=== PATIENT | female | born 1945 | race Caucasian/White ===

== ENCOUNTER 2020-06-14 13:56 | Outpatient (REF) | payer MEDICARE, SELFPAY | END 2020-06-14 13:57 | disposition home or self-care (01) | LOC: HO.HMGCLDS 13:56 | PROVIDERS: Visit Provider Internal Medicine | DX: Z20.828 Contact with and (suspected) exposure to other viral communicable diseases (principal) | CPT/HCPCS: 87635 ==

== ENCOUNTER → 2020-06-18 11:07 | Outpatient (BNV) | payer MEDICARE, SELFPAY | PROVIDERS: Visit Provider Internal Medicine Medical Oncology | DX: C90.00 Multiple myeloma not having achieved remission (principal) | CPT/HCPCS: 99212; 99213; 99214; 99443 ==

== ENCOUNTER 2020-08-02 08:37 | Outpatient (REF) | payer MEDICARE, SELFPAY ==
[2020-08-02 11:37] LABS: Hematocrit 40.4 % (37-47); Mean Corpuscular HGB Conc 32.2 g/dl (31.0-35.0); Mean Corpuscular Hemoglobin 28.3 pg (27.0-33.0); Mean Platelet Volume 9.9 fL (9.4-12.3); Platelet Count 113 X10*3/uL (160-400); Red Blood Count 4.59 X10*6/uL (4.20-5.50); Red Cell Distribution Width 13.1 % (11.0-16.0); White Blood Count 6.6 X10*3/uL (4.8-10.8)
[2020-08-02 12:21] LABS: Erythrocyte Sedimentation Rate 3 MM/HR (0-20)
[2020-08-02 12:33] LABS: Alanine Aminotransferase 38 U/L (0-31); Alkaline Phosphatase 48 U/L (39-117); Anion Gap 11 (12-20); Aspartate Amino Transferase 19 U/L (5-31); Bilirubin Direct 0.4 mg/dL (0.0-0.5); Bilirubin Total 1.1 mg/dL (0.0-1.0); Blood Urea Nitrogen 17 mg/dL (9-16); Calcium 8.7 mg/dL (8.4-10.2); Carbon Dioxide 29 mmol/L (22-29); Chloride 104 mmol/L (96-108); Cholesterol 140 mg/dL; Estimated Glomerular Filt Rate > 60; Glucose Random 92 mg/dL (60-115); HDL Cholesterol 56 mg/dL; LDL Cholesterol Calculated 49 mg/dl; Potassium 4.1 mmol/l (3.3-5.1); Sodium 140 mmol/L (135-145); Triglycerides 179 mg/dL
== END 2020-08-02 08:38 | disposition home or self-care (01) ==
LOC: HO.HMGCLDS 08:37
PROVIDERS: Visit Provider Internal Medicine Medical Oncology
DX: I10 Essential (primary) hypertension (principal); E78.5 Hyperlipidemia, unspecified
CPT/HCPCS: 36415; 80053; 80061; 80076; 82248; 83520; 85025; 85027; 85652

== ENCOUNTER → 2020-09-16 10:21 | Outpatient (BNVA) | payer MEDICARE, SELFPAY | PROVIDERS: Visit Provider Internal Medicine | DX: J45.909 Unspecified asthma, uncomplicated (principal); C90.01 Multiple myeloma in remission; R06.00 Dyspnea, unspecified | CPT/HCPCS: 99212 ==

== ENCOUNTER → 2020-09-20 11:09 | Outpatient (BNVA) | payer MEDICARE, SELFPAY | PROVIDERS: Visit Provider Internal Medicine Cardiovascular Disease | DX: C90.00 Multiple myeloma not having achieved remission (principal); R06.00 Dyspnea, unspecified; I10 Essential (primary) hypertension | CPT/HCPCS: 99212 ==

== ENCOUNTER → 2020-09-27 10:07 | Outpatient (BNVA) | payer MEDICARE, SELFPAY | PROVIDERS: Visit Provider Internal Medicine Gastroenterology | DX: Z76.89 Persons encountering health services in other specified circumstances (principal) | CPT/HCPCS: Q3014 ==

== ENCOUNTER → 2021-01-24 14:11 | Outpatient (BNVA) | payer MEDICARE, SELFPAY | PROVIDERS: PCP Internal Medicine; Referring Provider Internal Medicine; Visit Provider Internal Medicine Gastroenterology | DX: Z13.89 Encounter for screening for other disorder (principal) | CPT/HCPCS: 99212 ==

== ENCOUNTER 2021-01-26 10:43 | Outpatient (REF) | payer MEDICARE, SELFPAY ==
[2021-01-29 07:01] LABS: Fecal Fat Qualitative Normal (Normal)
[2021-02-06 01:52] LABS: Pancreatic Elastase-1 487 mcg/g
== END 2021-01-26 10:44 | disposition home or self-care (01) ==
LOC: HO.LNP 10:43
PROVIDERS: Visit Provider Internal Medicine Gastroenterology
DX: K52.9 Noninfective gastroenteritis and colitis, unspecified (principal)
CPT/HCPCS: 82656; 82705

== ENCOUNTER → 2021-03-03 12:50 | Outpatient (BNVA) | payer MEDICARE, SELFPAY | PROVIDERS: PCP Internal Medicine; Referring Provider Internal Medicine; Visit Provider Internal Medicine Gastroenterology | DX: K52.9 Noninfective gastroenteritis and colitis, unspecified (principal); K21.9 Gastro-esophageal reflux disease without esophagitis; C90.00 Multiple myeloma not having achieved remission | CPT/HCPCS: 99212 ==

== ENCOUNTER → 2021-03-16 10:44 | Outpatient (BNVA) | payer MEDICARE, SELFPAY | PROVIDERS: PCP Internal Medicine; Visit Provider Internal Medicine | DX: J45.20 Mild intermittent asthma, uncomplicated (principal); J44.9 Chronic obstructive pulmonary disease, unspecified; F41.9 Anxiety disorder, unspecified | CPT/HCPCS: 99212 ==

== ENCOUNTER → 2021-03-21 14:52 | Outpatient (BNVA) | payer MEDICARE, SELFPAY | PROVIDERS: PCP Internal Medicine; Referring Provider Internal Medicine; Visit Provider Internal Medicine Cardiovascular Disease | DX: C90.00 Multiple myeloma not having achieved remission (principal); R06.00 Dyspnea, unspecified; I10 Essential (primary) hypertension | CPT/HCPCS: 93005; 99212 ==

== ENCOUNTER 2021-05-11 11:05 | Outpatient (REF) | payer MEDICARE, SELFPAY ==
--- NOTE | ~2021-05-11 | XR_ITS ---
EXAMINATION: XR CHEST CLINICAL INFORMATION: COPD. COMPARISON: Chest 12/31/2019 TECHNIQUE: 2 views of the chest were obtained. FINDINGS: The lungs are well-expanded and clear of acute process. The heart size and pulmonary vascularity is normal. There is mild levoscoliosis of dorsal spine. There are 2 screws traversing the left proximal humeral head. XR/XR chest 2V IMPRESSION: Unremarkable chest exam.
== END 2021-05-11 11:06 | disposition home or self-care (01) ==
LOC: CF 11:05
PROVIDERS: PCP Internal Medicine; Visit Provider Internal Medicine
DX: J44.9 Chronic obstructive pulmonary disease, unspecified (principal); J45.20 Mild intermittent asthma, uncomplicated; Z79.899 Other long term (current) drug therapy; Z87.891 Personal history of nicotine dependence
CPT/HCPCS: 71046; 99212

== ENCOUNTER 2021-06-24 08:25 | Outpatient (REF) | payer MEDICARE, SELFPAY ==
[2021-06-24 11:38] LABS: Hematocrit 41.5 % (37-47); Mean Corpuscular HGB Conc 31.3 g/dl (31.0-35.0); Mean Corpuscular Hemoglobin 26.6 pg (27.0-33.0); Mean Corpuscular Volume 84.9 fL (80-98); Mean Platelet Volume 9.1 fL (9.4-12.3); Platelet Count 205 X10*3/uL (160-400); Red Blood Count 4.89 X10*6/uL (4.20-5.50); Red Cell Distribution Width 14.7 % (11.0-16.0); White Blood Count 8.2 X10*3/uL (4.8-10.8)
[2021-06-24 11:57] LABS: Alanine Aminotransferase 32 U/L (0-31); Albumin Level 4.4 g/dL (3.5-5.0); Alkaline Phosphatase 68 U/L (39-117); Anion Gap 13 (12-20); Aspartate Amino Transferase 25 U/L (5-31); Bilirubin Total 0.8 mg/dL (0.0-1.0); Blood Urea Nitrogen 15 mg/dL (9-16); Calcium 9.9 mg/dL (8.4-10.2); Carbon Dioxide 28 mmol/L (22-29); Chloride 107 mmol/L (96-108); Cholesterol 144 mg/dL; Estimated Glomerular Filt Rate > 60; Glucose Random 98 mg/dL (60-115); HDL Cholesterol 51 mg/dL; LDL Cholesterol Calculated 62 mg/dl; Potassium 5.1 mmol/L (3.3-5.1); Sodium 143 mmol/L (135-145); Total Protein 6.6 g/dL (6.5-8.0); Triglycerides 157 mg/dL
[2021-06-24 12:01] LABS: Estimated Average Glucose 105 mg/dL; Hemoglobin A1c % 5.3 %
[2021-06-24 12:04] LABS: Free T4 (Free Thyroxine) 0.87 ng/dL (0.71-1.85); Thyroid Stimulating Hormone 2.54 uIU/mL (0.32-4.0); Vitamin D 25-OH Total 55.7 ng/mL (>30)
[2021-06-24 12:09] LABS: Band Neutrophils Percent 5 % (3-5); Eosinophils Absolute Manual 0.2 X10*3/UL (0.0-0.8); Eosinophils Percent Manual 3 % (0-4); Lymphocytes Absolute Manual 1.1 X10*3/uL (0.6-4.8); Lymphocytes Percent Manual 14 % (20-40); Monocytes Absolute Manual 0.8 X10*3/uL (0.0-1.2); Monocytes Percent Manual 10 % (2-11); Neutrophils Percent Manual 68 % (45-73)
[2021-06-24 12:11] LABS: Platelet Estimate NORMAL (NORMAL); Platelet Morphology Comment NORMAL; RBC Morphology NORMAL
[2021-06-24 12:34] LABS: Folate 18.3 ng/mL (> or = 4.0); Vitamin B12 553 pg/mL (200-900)
== END 2021-06-24 08:26 | disposition home or self-care (01) ==
LOC: HO.HMGCLDS 08:25
PROVIDERS: PCP Internal Medicine; Visit Provider Internal Medicine
DX: E78.00 Pure hypercholesterolemia, unspecified (principal)
CPT/HCPCS: 36415; 80053; 80061; 82306; 82607; 82746; 83036; 84439; 84443; 85007; 85027

== ENCOUNTER → 2021-06-30 14:36 | Outpatient (BNVA) | payer MEDICARE, SELFPAY | PROVIDERS: PCP Internal Medicine; Visit Provider Internal Medicine | DX: J44.9 Chronic obstructive pulmonary disease, unspecified (principal); J45.909 Unspecified asthma, uncomplicated; I10 Essential (primary) hypertension; G57.02 Lesion of sciatic nerve, left lower limb; M94.0 Chondrocostal junction syndrome [Tietze]; C90.00 Multiple myeloma not having achieved remission; F41.9 Anxiety disorder, unspecified; Z87.891 Personal history of nicotine dependence; Z88.6 Allergy status to analgesic agent; Z88.1 Allergy status to other antibiotic agents; Z88.8 Allergy status to other drugs, medicaments and biological substances; Z79.899 Other long term (current) drug therapy | CPT/HCPCS: 99212 ==

== ENCOUNTER → 2021-07-07 10:44 | Outpatient (BNVA) | payer MEDICARE, SELFPAY | PROVIDERS: PCP Internal Medicine; Referring Provider Internal Medicine; Visit Provider Internal Medicine Gastroenterology | DX: K21.9 Gastro-esophageal reflux disease without esophagitis (principal); K52.9 Noninfective gastroenteritis and colitis, unspecified | CPT/HCPCS: 99212 ==

== ENCOUNTER → 2021-09-21 10:58 | Outpatient (BNVA) | payer MEDICARE, SELFPAY | PROVIDERS: PCP Internal Medicine; Visit Provider Internal Medicine | DX: J44.9 Chronic obstructive pulmonary disease, unspecified (principal); J45.20 Mild intermittent asthma, uncomplicated; R06.00 Dyspnea, unspecified; F41.9 Anxiety disorder, unspecified | CPT/HCPCS: 99212 ==

== ENCOUNTER → 2021-09-22 15:10 | Outpatient (BNVA) | payer MEDICARE, SELFPAY | PROVIDERS: PCP Internal Medicine; Referring Provider Internal Medicine; Visit Provider Internal Medicine Cardiovascular Disease | DX: I10 Essential (primary) hypertension (principal); R06.00 Dyspnea, unspecified; C90.00 Multiple myeloma not having achieved remission | CPT/HCPCS: 99212 ==

== ENCOUNTER → 2021-10-06 11:55 | Outpatient (BNVA) | payer MEDICARE, SELFPAY | PROVIDERS: PCP Internal Medicine; Referring Provider Internal Medicine; Visit Provider Internal Medicine Gastroenterology | DX: K52.9 Noninfective gastroenteritis and colitis, unspecified (principal); K21.9 Gastro-esophageal reflux disease without esophagitis; R13.14 Dysphagia, pharyngoesophageal phase | CPT/HCPCS: 99212 ==

== ENCOUNTER 2021-11-07 08:44 | Outpatient (REF) | payer MEDICARE, SELFPAY ==
--- NOTE | ~2021-11-07 | FL_ITS ---
EXAMINATION: FL BARIUM SWALLOW CLINICAL INFORMATION: Dysphagia with solids and liquids. COMPARISON: None TECHNIQUE: Barium swallow examination is performed using fluoroscopic evaluation in addition to multiple fluoroscopic spot views. The patient is imaged both upright and prone and using both thick and thin sulfate along with effervescent granules. Fluoroscopy time: 0.8 minutes DAP: 3.993 Gycm2 Images: 19 FINDINGS: Pharyngeal phase is normal in frontal and lateral views. No aspiration demonstrated. No mass. Esophageal caliber is normal. There is moderate dysmotility. No fixed stricture or extrinsic mass lesion demonstrated. No mucosal abnormality. No hiatal hernia. No gastroesophageal reflux observed. A barium tablet passed through the esophagus into the stomach. FL/FL barium swallow IMPRESSION: Moderate esophageal dysmotility. Otherwise normal barium swallow.
== END 2021-11-07 08:45 | disposition home or self-care (01) ==
LOC: HO.XRAY 08:44
PROVIDERS: PCP Internal Medicine; Visit Provider Internal Medicine Gastroenterology
DX: R13.14 Dysphagia, pharyngoesophageal phase (principal)
CPT/HCPCS: 74220

== ENCOUNTER 2021-11-14 10:51 | Emergency (ER) | payer MEDICARE, SELFPAY ==
--- NOTE | ~2021-11-14 | CT_ITS ---
EXAMINATION: CT ABDOMEN AND PELVIS WITHOUT CONTRAST CLINICAL INFORMATION: Back pain. History of multiple myeloma. COMPARISON: Previous CT of the abdomen and pelvis [address] scans most recent chest CTA April 2020 TECHNIQUE: Multidetector volumetric imaging was performed from the superior aspect of the liver through the pubic symphysis. Sagittal and coronal reformatted images were obtained on the technologist's workstation. This CT examination was performed using dose optimization techniques as appropriate, variously including the following: *Automated exposure control *Adjustment of mA and/or kV according to patient size (this includes techniques or standardized protocols for targeted exams where dose is matched to indication/reason for exam; i.e. extremities or head) *Use of iterative reconstruction technique DLP: 570 mGy-cm FINDINGS: LUNG BASES: There is a 3 mm left lower lobe nodule axial image 9 series 3. This is unchanged from previous CTA April 2020 There may be an anterior diaphragmatic hernia containing fat. LIVER, GALLBLADDER, AND BILIARY TREE: The liver is normal in size, shape, and attenuation. No focal hepatic lesion or biliary ductal dilatation is present. There is dependent high attenuation in the gallbladder questionable for small gallstones. PANCREAS: Unremarkable. SPLEEN: Unremarkable. ADRENAL GLANDS: Unremarkable. KIDNEYS AND URETERS: There is a 4 cm cyst in the upper pole of the left kidney. No imaging follow-up needed. The kidneys are otherwise unremarkable. BLADDER: Unremarkable. GASTROINTESTINAL TRACT: There is diverticulosis of the colon. The small and large bowel are otherwise unremarkable. The appendix is unremarkable. ABDOMINAL WALL: No significant hernia is appreciated. LYMPH NODES: Normal. VASCULAR: Unremarkable. PELVIC VISCERA: Unremarkable. OSSEOUS STRUCTURES: There are degenerative changes of the spine and hip joints. No fracture or bone lesion is seen. There is mild 3 mm anterior subluxation of L4 with respect L5 probably secondary to facet arthritis. CT/CT abdomen pelvis wo con IMPRESSION: Left renal cyst. Diverticulosis of the colon. Degenerative changes of the spine and hip joints. No fracture or bone lesion is seen. Question small gallstones. Stable 3 mm left lower lobe nodule. Fleischner guidelines were followed.
[2021-11-14 12:01] VITALS: BP 145/70; PULSE 73; RESP 16; TEMP 36.5; O2SAT 98; BMI 28.3
[2021-11-14] MEDS: Ketorolac Tromethamine 30 MG/ML VIAL IM (12:58)
[2021-11-14] MEDS: Cyclobenzaprine HCl 10 MG TABLET PO (12:58)
[2021-11-14 13:10] LABS: Appearance Urine CLEAR; Color Urine YELLOW; Glucose Urine UA NEG (NEG); Leukocyte Esterase Urine NEG (NEG); Nitrite Urine NEG (NEG); PH 5.5 (5.0-8.0); Specific Gravity - Urine <= 1.005 (1.005-1.025); UACC Culture Trigger NO; Urine Blood TRACE (NEG); Urine Ketones NEG (NEG); Urine Protein NEG (NEG-TRACE)
[2021-11-14 13:24] LABS: RBC Urine 0-2 /HPF (0); Squamous Epithelial Cell Urine 2+ /LPF; WBC Urine 0-2 /HPF (0-4)
--- NOTE | 2021-11-14 13:36 | ECG_ITS ---
Test Reason : BACK PAIN Blood Pressure : / mmHG Vent. Rate : 060 BPM Atrial Rate : 060 BPM P-R Int : 148 ms QRS Dur : 076 ms QT Int : 396 ms P-R-T Axes : 042 -04 078 degrees QTc Int : 396 ms Normal sinus rhythm Nonspecific ST and T wave abnormality Borderline ECG When compared with ECG of 18-SEP-2019 16:01, No significant change was found Referred By: Bereket Huff Electronically Signed By:EUGENE HINSON
[2021-11-14 13:49] LABS: MANUAL DIFF FLAG NO
[2021-11-14 13:50] LABS: Basophils Percent Auto 0.1 % (0-2); Eosinophils Percent Auto 0.1 % (0-4); Hematocrit 41.2 % (37.0-47.0); Hemoglobin 13.4 g/dl (12.0-16.0); Imm Gran Pct Auto 0.9 % (0.0-0.4); Lymphocytes Absolute Auto 1.1 X10*3/uL (1.2-4.9); Lymphocytes Percent Auto 10.3 % (20-40); Mean Corpuscular HGB Conc 32.5 g/dl (31.0-35.0); Mean Corpuscular Hemoglobin 30.6 pg (27.0-33.0); Mean Corpuscular Volume 94.1 fL (80.0-98.0); Mean Platelet Volume 8.2 fL (9.4-12.3); Monocytes Percent Auto 8.7 % (2-11); Neutrophils Absolute Auto 8.8 x10*3/uL (2.0-8.3); Neutrophils Percent Auto 79.9 % (45-73); Platelet Count 214 X10*3/uL (160-400); Red Blood Count 4.38 X10*6/uL (4.20-5.50); Red Cell Distribution Width 12.9 % (11.0-16.0)
[2021-11-14 13:56] LABS: Prothrombin Time 11.5 SEC (9.9-13.0)
[2021-11-14 13:59] LABS: Partial Thromboplastin Time 36.4 SEC (24.1-38.0)
[2021-11-14 14:05] LABS: D Dimer High Sensitivity < 150 NG/ML
[2021-11-14 14:09] LABS: Troponin-I High Sensitivity < 3.5 ng/L (<3.5-17.0)
[2021-11-14 14:17] LABS: Alanine Aminotransferase 28 U/L (0-31); Albumin Level 4.5 g/dL (3.5-5.0); Alkaline Phosphatase 65 U/L (39-117); Anion Gap 14 (12-20); Aspartate Amino Transferase 29 U/L (5-31); Bilirubin Total 0.7 mg/dL (0.0-1.0); Blood Urea Nitrogen 18 mg/dL (9-16); Calcium 9.9 mg/dL (8.4-10.2); Carbon Dioxide 27 mmol/L (22-29); Chloride 103 mmol/L (96-108); Creatinine Clr Calc Pharmacy 45.1; Estimated Glomerular Filt Rate 50; Glucose Random 92 mg/dL (60-115); Potassium 5.8 mmol/L (3.3-5.1); Sodium 138 mmol/L (135-145)
--- NOTE | 2021-11-14 14:18 | ED_ITS ---
HPI - Back Pain/Injury General Chief Complaint: Back Pain/Injury Stated Complaint: back pain Time Seen by Provider: 11/14/21 13:25 Source: patient Mode of arrival: ambulatory Limitations: no limitations History of Present Illness HPI Narrative: 76-year-old female with past medical history of multiple myeloma, COPD, and GERD brought to the ED for right-sided flank and lower back pain since yesterday after sneezing really hard. Patient denies any trauma. patient states back pain is worse on movement such as moving torso, bending down, and lifting. Patient was sent by oncologist for evaluation. Patient denies any pleurisy. Patient denies any leg swelling, calf pain, or coughing up blood. Related Data Home Medications Medication Instructions Recorded Confirmed acetaminophen 500 mg tablet 500 mg PO QID PRN 06/21/20 11/08/21 ascorbic acid (vitamin C) 1,000 mg 1,000 mg PO DAILY 06/21/20 11/08/21 tablet chondroitin sulfate A sodium 400 400 mg PO DAILY 06/21/20 11/08/21 mg capsule flaxseed oil 1,000 mg capsule 1,000 mg PO DAILY 06/21/20 11/08/21 lactobacillus combination no.4 3 3,000 mmu cells PO DAILY 06/21/20 11/08/21 billion cell capsule multivitamin 1 cap PO DAILY 06/21/20 11/08/21 elderberry fruit 0.7 gram-honey 3 7.5 ml PO DAILY PRN 12/03/20 11/08/21 gram/7.5 mL oral liquid tramadol 50 mg tablet 50 mg PO BID PRN tab 12/03/20 11/08/21 glucosamine HCl-sulfate mix 200 200 tab PO DAILY 12/30/20 11/08/21 mg-300 mg tablet mecobalamin (vitamin B12) 1,000 1,000 mcg PO DAILY 12/30/20 11/08/21 mcg chewable tablet (B12 Active) methylsulfonylmethane 500 mg 500 mg PO DAILY 12/30/20 11/08/21 capsule peg 400-propylene glycol (PF) 0.4 0.4 drp DAILY 12/30/20 11/08/21 %-0.3 % eye drops in a dropperette (Systane (PF)) desvenlafaxine succinate 25 mg 25 mg PO DAILY 03/03/21 11/08/21 tablet,extended release 24 hr (Pristiq) colestipol 1 gram tablet (Colestid) 1 g PO DAILY tab 09/21/21 11/08/21 cholecalciferol (vitamin D3) 50 50 mcg PO DAILY 09/22/21 11/08/21 mcg (2,000 unit) capsule simvastatin 10 mg tablet 40 mg PO BEDTIME 09/27/21 11/08/21 Previous Rx's Medication Instructions Recorded trazodone 50 mg tablet 50 mg PO BEDTIME #30 tab 10/14/20 meloxicam 15 mg tablet 15 mg PO DAILY #90 tab 03/22/21 pantoprazole 40 mg tablet,delayed 1 tab PO DAILY #90 tab 04/26/21 release (Protonix) losartan 100 mg tablet (Cozaar) 100 mg PO DAILY #90 tab 05/26/21 metoprolol succinate 50 mg 50 mg PO DAILY #90 tab 06/02/21 tablet,extended release 24 hr (Toprol XL) methylprednisolone 16 mg tablet 20 mg PO DAILY #30 tab 07/05/21 (Medrol) sulfamethoxazole 800 1 tab PO DAILY #90 tab 07/05/21 mg-trimethoprim 160 mg tablet (Bactrim DS) valacyclovir 500 mg tablet 500 mg PO DAILY #90 tab 07/05/21 (Valtrex) lorazepam 0.5 mg tablet 0.5 mg PO BID PRN #50 tab 07/17/21 sjwqfbemac-dmhvoimcgizhh-epsgljdd 1 cap PO Q8H PRN #30 cap 08/02/21 50 mg-300 mg-40 mg capsule (Fioricet) albuterol sulfate 90 mcg/actuation 2 puff INHALATION Q4-6H PRN 30 09/21/21 aerosol inhaler (Ventolin HFA) Days #8.5 g jrhnjb-miwzzewy-buatldr 1 cap PO TID 30 Days #90 cap 10/06/21 12,000-38,000-60,000 unit capsule,delayed rel (Creon) Symbicort 160 mcg-4.5 2 puff INHALATION BID #10.2 g NS 10/20/21 mcg/actuation HFA aerosol inhaler (budesonide-formoterol) amlodipine 5 mg tablet 5 mg PO DAILY #90 cap 11/02/21 cyclobenzaprine 10 mg tablet 10 mg PO TID PRN 4 Days #12 tab 11/14/21 lidocaine 4 % topical patch 1 patch TOPICAL DAILY PRN 10 Days 11/14/21 (Aspercreme (lidocaine)) #10 ea Allergies Allergy/AdvReac Type Severity Reaction Status Date / Time oxycodone [From OXYCONTIN] Allergy Mild PRURITUS, Verified 10/28/21 09:55 severe itching adhesive tape Allergy Unknown BLISTERS Verified 10/28/21 09:55 cephalexin [Keflex] Allergy Unknown hives Verified 10/28/21 09:55 doxycycline [DOXYCYCLINE] AdvReac Intermediate STOMACH Verified 10/28/21 09:55 PAINS Review of Systems Review of Systems: Right upper and lower back pain after sneezing hard since yesterday. Yes all other systems are reviewed and are negative PMFSH Past Medical History Medical History Asthma Bladder cancer Cataract COPD (chronic obstructive pulmonary disease) Costochondritis Dyspnea on exertion GERD (gastroesophageal reflux disease) Hypertension IBS (irritable bowel syndrome) Multiple myeloma Surgical History H/O cardiac catheterization H/O colonoscopy H/O eye surgery H/O rotator cuff surgery H/O wrist surgery History of arthroscopy of both knees History of esophagogastroduodenoscopy (EGD) History of eyelid surgery History of tonsillectomy Family History Family History Father Pancreatic cancer Diabetes Stroke Mother No problems noted. Sister Diabetes Son No problems noted. Social History Social History Household Members: Spouse Housing: Condominium Are you a primary professional healthcare representative to a significant other at home: No Do you presently have visiting nurse or other home services: No Alcohol intake: current Alcohol intake frequency: holidays/special occasions only Patient Tobacco Use Status: Former Tobacco user Tobacco use type: Cigarette e-Cigarette/Vaping Use: Never Used Second Hand Smoke Exposure: No Advance Directives: Yes Advance Directives on File: Yes Advance Directives Date on File: 11/11/20 service: No Current occupational status: retired Physical Exam Vital Signs: Vital Signs: Last Vital Signs Temp 97.6 F 11/14/21 14:55 Pulse 61 11/14/21 14:55 Resp 18 11/14/21 14:55 BP 118/54 L 11/14/21 14:55 Pulse Ox 99 11/14/21 14:55 BMI result Body Mass Index 28.3 Const: General: cooperative, healthy appearing, comfortable, no acute distress, well developed, alert, awake and Physically active Orientation/consciousness: oriented to person, oriented to place, oriented to time and patient oriented x3 HENMT: Head: Yes normal to inspection, Yes No palpable skull fracture present, Yes normocephalic, Yes atraumatic and No abrasion Eyes: General: appearance normal, both eyes and all related structures Neck: Neck: Yes normal visual inspection, Yes full ROM, Yes no lymphadenopathy, Yes no meningeal signs, Yes trachea midline, Yes supple, No anterior neck swelling and No tender Chest: Chest palpation & inspection: normal inspection of the chest and normal palpation of entire chest wall Resp: Effort & Inspection: normal respiratory effort and able to speak in complete sentences Auscultation: clear to auscultation bilaterally Cardio: Jugular venous distension: no JVD Heart sounds: S1 normal heart sound present and S2 normal heart sound present GI: Inspection: Yes normal to inspection and No abdominal wall ecchymosis Palpation (GI): Soft to palpation, not firm, nontender, no guarding and not rigid : General: No CVA tenderness and Yes no CVA tenderness Back/Spine/Pelvis: Back: no CVA tenderness, No CVA tenderness and back tenderness (right latismuss dorsi/erector spinae tenderness on palpation) Back/spine/pelvis image: 1. positive for tenderness on palpation. Negative crepitus. Negative ecchymosis. Pain on range of motion and movement of the torso and upper extremity. Negative erythema. negative rash 2. Positive for tenderness on palpation. Positive for pain on range of motion such as bending down, turning around torso, and straight leg test. Negative for any crepitus. negative for any ecchymosis or erythema. negative rash Skin: General skin exam: no rashes or lesions noted and elasticity normal Neuro: General: oriented to person, oriented to place, oriented to time, patient oriented x3, gait normal and no meningeal signs Extrem: Other: lower extremity negative for swelling, pitting edema, or calf tenderness General: Yes normal to inspection and Yes full ROM Psych: Appearance: grossly normal, well kempt and not disheveled Course Course Course Narrative: history physical exam some muscular pain/spasm but due to patient having history of cancer will send for CT scan to check spine osseous structures to rule out any fractures and will do a D-dimer to make sure there is no risk of PE due to patient having cancer.. Reevaluation(s) Reevaluation #1: EKG negative STEMI. troponin and D-dimer negative. Patient given Toradol and Flexeril. Working for abdomen CT scan results to check for any spine fracture Time: 14:32 Reevaluation #2: CT scan negative for any osseous fractures but whitten show it does show lumbar radiculopathy. Patient feels better after given Toradol and lidocaine patch. Patient rated on meloxicam and tramadol. CT scan also showed gallstones. UA negative for UTI. Time: 15:19 Reevaluation #3: patient potassium 5.4 8and with normal BUN creatinine. EKG negative for Peaked t-waves. Patient given Kayexalate. Patient informed to follow-up with primary care for repeat potassium. Patient informed of lab results and imaging results. Patient given copies of labs and images told to follow up primary care provider. Time: 15:35 MDM - Back Pain/Injury MDM Narrative Medical decision making narrative: muscle spasm. Lab Data Result diagrams: 11/14/21 13:44 11/14/21 13:44 Labs: Lab Results 11/14/21 11/14/21 11/14/21 Range/Units 13:02 13:44 13:44 WBC 11.0 H (4.8-10.8) X10*3/uL RBC 4.38 (4.20-5.50) X10*6/uL Hgb 13.4 (12.0-16.0) g/dl Hct 41.2 (37.0-47.0) % MCV 94.1 (80.0-98.0) fL MCH 30.6 (27.0-33.0) pg MCHC 32.5 (31.0-35.0) g/dl RDW 12.9 (11.0-16.0) % Plt Count 214 (160-400) X10*3/uL MPV 8.2 L (9.4-12.3) fL Immature Gran % (Auto) 0.9 H (0.0-0.4) % Neut % (Auto) 79.9 H (45-73) % Lymph % (Auto) 10.3 L (20-40) % Dickinson % (Auto) 8.7 (2-11) % Eos % (Auto) 0.1 (0-4) % Baso % (Auto) 0.1 (0-2) % Lymph # (Auto) 1.1 L (1.2-4.9) X10*3/uL [place] # (Auto) 1.0 (0.1-1.2) X10*3/uL Eos # (Auto) 0.0 (0.0-0.4) X10*3/uL Baso # (Auto) 0.0 (0.0-0.2) X10*3/uL Abs Immat Gran (auto) 0.10 H (0.00-0.03) X10*3/uL Absolute Neuts (auto) 8.8 H (2.0-8.3) x10*3/uL Absolute Nucleated RBC 0.000 (0.0-0.012) X10*3/uL Nucleated RBC % (auto) 0.0 (0.0-0.2) /100WBC PT 11.5 (9.9-13.0) SEC INR 1.0 (0.9-1.1) APTT 36.4 (24.1-38.0) SEC D-Dimer High Sensitivty < 150 NG/ML Sodium (135-145) mmol/L Potassium (3.3-5.1) mmol/L Chloride (96-108) mmol/L Carbon Dioxide (22-29) mmol/L Anion Gap (12-20) BUN (9-16) mg/dL Creatinine (0.5-1.4) mg/dL Estim Creat Clear Calc Estimated GFR Random Glucose (60-115) mg/dL Calcium (8.4-10.2) mg/dL Total Bilirubin (0.0-1.0) mg/dL AST (5-31) U/L ALT (0-31) U/L Alkaline Phosphatase (39-117) U/L Troponin I High Sens (<3.5-17.0) ng/L Total Protein (6.5-8.0) g/dL Albumin (3.5-5.0) g/dL Urine Color YELLOW Urine Appearance CLEAR Urine pH 5.5 (5.0-8.0) Ur Specific [place] <= 1.005 (1.005-1.025) Urine Protein NEG (NEG-TRACE) MG/DL Urine Glucose (UA) NEG (NEG) MG/DL Urine Ketones NEG (NEG) MG/DL Urine Blood TRACE (NEG) Urine Nitrite NEG (NEG) Ur Leukocyte Esterase NEG (NEG) Urine RBC 0-2 (0) /HPF Urine WBC 0-2 (0-4) /HPF Ur Squamous Epith Cells 2+ /LPF Urine Bacteria NONE /LPF 11/14/21 11/14/21 Range/Units 13:44 13:44 WBC (4.8-10.8) X10*3/uL RBC (4.20-5.50) X10*6/uL Hgb (12.0-16.0) g/dl Hct (37.0-47.0) % MCV (80.0-98.0) fL MCH (27.0-33.0) pg MCHC (31.0-35.0) g/dl RDW (11.0-16.0) % Plt Count (160-400) X10*3/uL MPV (9.4-12.3) fL Immature Gran % (Auto) (0.0-0.4) % Neut % (Auto) (45-73) % Lymph % (Auto) (20-40) % Dickinson % (Auto) (2-11) % Eos % (Auto) (0-4) % Baso % (Auto) (0-2) % Lymph # (Auto) (1.2-4.9) X10*3/uL Dickinson # (Auto) (0.1-1.2) X10*3/uL Eos # (Auto) (0.0-0.4) X10*3/uL Baso # (Auto) (0.0-0.2) X10*3/uL Abs Immat Gran (auto) (0.00-0.03) X10*3/uL Absolute Neuts (auto) (2.0-8.3) x10*3/uL Absolute Nucleated RBC (0.0-0.012) X10*3/uL Nucleated RBC % (auto) (0.0-0.2) /100WBC PT (9.9-13.0) SEC INR (0.9-1.1) APTT (24.1-38.0) SEC D-Dimer High Sensitivty NG/ML Sodium 138 (135-145) mmol/L Potassium 5.8 H (3.3-5.1) mmol/L Chloride 103 (96-108) mmol/L Carbon Dioxide 27 (22-29) mmol/L Anion Gap 14 (12-20) BUN 18 H (9-16) mg/dL Creatinine 1.07 (0.5-1.4) mg/dL Estim Creat Clear Calc 45.1 Estimated GFR 50 Random Glucose 92 (60-115) mg/dL Calcium 9.9 (8.4-10.2) mg/dL Total Bilirubin 0.7 (0.0-1.0) mg/dL AST 29 (5-31) U/L ALT 28 (0-31) U/L Alkaline Phosphatase 65 (39-117) U/L Troponin I High Sens < 3.5 (<3.5-17.0) ng/L Total Protein 7.0 (6.5-8.0) g/dL Albumin 4.5 (3.5-5.0) g/dL Urine Color Urine Appearance Urine pH (5.0-8.0) Ur Specific [place] (1.005-1.025) Urine Protein (NEG-TRACE) MG/DL Urine Glucose (UA) (NEG) MG/DL Urine Ketones (NEG) MG/DL Urine Blood (NEG) Urine Nitrite (NEG) Ur Leukocyte Esterase (NEG) Urine RBC (0) /HPF Urine WBC (0-4) /HPF Ur Squamous Epith Cells /LPF Urine Bacteria /LPF ECG Data Interpretation: Normal sinus rhythm. Normal EKG. Ventricular rate 60. Pr interval 148. QRS 76. QTC 396. Negative STEMI Discharge Plan Discharge Clinical Impression: Sprain of upper back, Sprain of low back Patient Disposition: Home, Self-Care Instructions: Sprain (ED), Hyperkalemia (ED), Back Pain (ED) Additional Instructions: continue taking meloxicam and tramadol as needed for pain. You will be discharged with lidocaine patch. Your EKG and labs came back negative for heart attack, UTI, and risk of blood clot. Negative for any spinal fractures On CT scan. 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 You're potassium came back slightly elevated. You were given Kayexalate for treatment. Please follow-up with primary care provider for repeat potassium blood draw. Return to ED for any worsening back pain, pleuritic chest pain, shortness of breath, coughing up blood, flank pain, fever, chills, dysuria, hematuria, chest pain, abdominal pain, urinary/bowel incontinence, or any other concerning symptoms. Prescriptions: New cyclobenzaprine 10 mg tablet 10 mg PO TID PRN (Reason: pain) 4 Days Qty: 12 0RF Rx Instructions: side effect is drowsiness. Do not take at work or while driving. Do not take at the same time with any benzodiazepine or narcotics. lidocaine [Aspercreme (lidocaine HCl)] 4 % adhesive patch,medicated 1 patch topical DAILY PRN (Reason: back pain) 10 Days Qty: 10 0RF No Action meloxicam 15 mg tablet 15 mg PO DAILY Qty: 90 3RF losartan [Cozaar] 100 mg tablet 100 mg PO DAILY Qty: 90 3RF metoprolol succinate [Toprol XL] 50 mg tablet extended release 24 hr 50 mg PO DAILY Qty: 90 3RF budesonide-formoterol [Symbicort] 160-4.5 mcg/actuation HFA aerosol inhaler 2 puff inhalation BID Qty: 10.2 2RF amlodipine 5 mg tablet 5 mg PO DAILY Qty: 90 3RF ascorbic acid (vitamin C) 1,000 mg Tablet 1,000 mg PO DAILY 0RF acetaminophen 500 mg Tablet 500 mg PO QID PRN (Reason: Pain) 0RF flaxseed oil 1,000 mg Capsule 1,000 mg PO DAILY 0RF chondroitin sulfate A sodium 400 mg Capsule 400 mg PO DAILY 0RF multivitamin Capsule 1 cap PO DAILY 0RF lactobacillus combination no.4 3 billion cell Capsule 3,000 mmu cells PO DAILY 0RF trazodone 50 mg Tablet 50 mg PO BEDTIME Qty: 30 2RF elderberry fruit-honey 0.7-3 gram/7.5 mL liquid 7.5 ml PO DAILY PRN (Reason: Fatigue) 0RF Glucosamine Complex 200-300 mg Tablet 200 tab PO DAILY 0RF methylsulfonylmethane 500 mg Capsule 500 mg PO DAILY 0RF B12 Active 1,000 mcg Tablet,Chewable 1,000 mcg PO DAILY 0RF Systane (PF) 0.4-0.3 % Dropperette 0.4 drp DAILY 0RF pantoprazole [Protonix] 40 mg tablet,delayed release (DR/EC) 1 tab PO DAILY Qty: 90 3RF valacyclovir [Valtrex] 500 mg Tablet 500 mg PO DAILY Qty: 90 3RF sulfamethoxazole-trimethoprim [Bactrim DS] 800-160 mg Tablet 1 tab PO DAILY Qty: 90 4RF methylprednisolone [Medrol] 16 mg Tablet 20 mg PO DAILY Qty: 30 4RF Rx Instructions: Take 20 mg days 2 in 3 of chemotherapy. lorazepam 0.5 mg Tablet 0.5 mg PO BID PRN (Reason: Anxiety) Qty: 50 2RF qrzwrfypts-wjrkilvpzyvbl-zlbo [Fioricet] 50-300-40 mg Capsule 1 cap PO Q8H PRN (Reason: Headache) Qty: 30 3RF simvastatin 10 mg Tablet 40 mg PO BEDTIME 0RF desvenlafaxine succinate [Pristiq] 25 mg tablet extended release 24 hr 25 mg PO DAILY 0RF tramadol 50 mg tablet 50 mg PO BID PRN (Reason: Pain) 0RF colestipol [Colestid] 1 gram tablet 1 g PO DAILY 0RF Rx Instructions: Dr. Dupont Diarrhea albuterol sulfate [Ventolin HFA] 90 mcg/actuation HFA aerosol inhaler 2 puff inhalation Q4-6H PRN (Reason: shortness of breath or wheezing) 30 Days Qty: 8.5 5RF Creon 12,000-38,000 -60,000 unit capsule,delayed release(DR/EC) 1 cap PO TID 30 Days Qty: 90 3RF Rx Instructions: administer with meals and/or snacks cholecalciferol (vitamin D3) 50 mcg (2,000 unit) capsule 50 mcg PO DAILY 0RF Interventions: ED Discharge Assessment Last Done: 11/14/21 16:12 Discharge Date/Time: 11/14/21 16:13 Print Language: [place]
[2021-11-14 14:55] VITALS: BP 118/54; PULSE 61; RESP 18; TEMP 36.4; O2SAT 99
[2021-11-14] MEDS: Lidocaine 4 % Patch ADH..PATCH 1 PATCH TRANSDERMA (15:12)
[2021-11-14] MEDS: Sodium Polystyrene Sulfon/Sorb 15 GM/60 ML ORAL.SUSP 45 GM PO (15:28)
== END 2021-11-14 16:13 | disposition home or self-care (01) ==
PROVIDERS: Physician Assistant; Emergency Provider Emergency Medicine; PCP Internal Medicine
DX: S23.3XXA Sprain of ligaments of thoracic spine, initial encounter (principal); S33.5XXA Sprain of ligaments of lumbar spine, initial encounter; X50.9XXA Other and unspecified overexertion or strenuous movements or postures, initial encounter; E87.5 Hyperkalemia; Y93.89 Activity, other specified; Y92.019 Unspecified place in single-family (private) house as the place of occurrence of the external cause; Y99.9 Unspecified external cause status
CPT/HCPCS: 36415; 74176; 80053; 81001; 84484; 85025; 85379; 85610; 85730; 93005; 96372; 99284; J1885

== ENCOUNTER 2021-11-16 12:30 | Outpatient (REF) | payer MEDICARE, SELFPAY ==
[2021-11-16 13:45] LABS: Anion Gap 14 (12-20); Blood Urea Nitrogen 17 mg/dL (9-16); Carbon Dioxide 27 mmol/L (22-29); Chloride 105 mmol/L (96-108); Estimated Glomerular Filt Rate 53; Glucose Random 106 mg/dL (60-115); Potassium 5.3 mmol/L (3.3-5.1); Sodium 141 mmol/L (135-145)
== END 2021-11-16 12:31 | disposition home or self-care (01) ==
LOC: HO.LAB 12:30
PROVIDERS: PCP Internal Medicine; Visit Provider Internal Medicine
DX: E87.5 Hyperkalemia (principal)
CPT/HCPCS: 36415; 80048

== ENCOUNTER → 2021-12-08 08:37 | Outpatient (BNVA) | payer MEDICARE, SELFPAY | PROVIDERS: PCP Internal Medicine; Referring Provider Internal Medicine; Visit Provider Internal Medicine Gastroenterology | DX: K80.20 Calculus of gallbladder without cholecystitis without obstruction (principal); K52.9 Noninfective gastroenteritis and colitis, unspecified; K21.9 Gastro-esophageal reflux disease without esophagitis; R13.14 Dysphagia, pharyngoesophageal phase | CPT/HCPCS: 99212 ==

== ENCOUNTER → 2022-01-19 11:24 | Outpatient (BNVA) | payer MEDICARE, SELFPAY | PROVIDERS: PCP Internal Medicine; Visit Provider Internal Medicine | DX: J44.9 Chronic obstructive pulmonary disease, unspecified (principal); J45.20 Mild intermittent asthma, uncomplicated; F41.9 Anxiety disorder, unspecified; C90.00 Multiple myeloma not having achieved remission | CPT/HCPCS: 99212 ==

== ENCOUNTER → 2022-02-06 10:41 | Outpatient (BNVA) | payer MEDICARE, SELFPAY | PROVIDERS: PCP Internal Medicine; Referring Provider Internal Medicine; Visit Provider Internal Medicine Cardiovascular Disease | DX: Z13.89 Encounter for screening for other disorder (principal) | CPT/HCPCS: 99212 ==

== ENCOUNTER 2022-02-06 13:48 | Outpatient (REF) | payer MEDICARE, SELFPAY ==
--- NOTE | ~2022-02-06 | CT_ITS ---
EXAMINATION: CT ANGIOGRAM OF THE CHEST WITH AND WITHOUT CONTRAST (CT PULMONARY ANGIOGRAM FOR PE) CLINICAL INFORMATION: R06.00 - Dyspnea, unspecified. COMPARISON: Previous chest CTs, most recent December 2021. TECHNIQUE: Prior to contrast administration, noncontrast localization images were obtained. Subsequently, multidetector volumetric imaging was performed from the thoracic inlet to below the diaphragms following the administration of 80 mL Omnipaque 350 intravenous contrast. No contrast reaction reported Sagittal, coronal, and MIP oblique sagittal reformatted images were obtained on the CT workstation, uploaded to PACS, and reviewed. This CT examination was performed using dose optimization techniques as appropriate, variously including the following: *Automated exposure control *Adjustment of mA and/or kV according to patient size (this includes techniques or standardized protocols for targeted exams where dose is matched to indication/reason for exam; i.e. extremities or head) *Use of iterative reconstruction technique Total exam dose-length product 120 mGy-cm FINDINGS: QUALITY OF STUDY/CONTRAST BOLUS: Satisfactory. PULMONARY ARTERIES: No central or segmental pulmonary emboli. THORACIC AORTA: No aneurysm or dissection. LUNG: No focal consolidation, nodules or masses. PLEURA: No pleural effusion or pneumothorax. MEDIASTINUM: Heart is slightly enlarged. There is mild coronary artery calcification. No pericardial effusion. No hilar or mediastinal lymphadenopathy. No evidence of septal bowing or right heart strain. CHEST WALL/AXILLA: No axillary or internal mammary lymphadenopathy. OSSEOUS STRUCTURES: Stable lytic lesion in the left inferior scapula and associated soft tissue mass. Small lytic lesions in the spine, largest measuring 5 x 10 mm in the left T9 vertebral body. Lytic lesion and pathologic fracture of the right posterior eighth rib associated soft tissue mass. Degenerative changes of the shoulders. Postsurgical changes to the left shoulder. UPPER ABDOMEN: Unremarkable. No reflux of contrast into the hepatic veins to suggest elevated right heart pressures. CT/CT angio chest PE protocol IMPRESSION: No evidence of pulmonary embolism. Slightly enlarged heart and mild coronary artery calcification. Stable bone findings. VTE: Negative.
[2022-02-06] MEDS: iohexoL 350 MG/ML 100 ML INFUS..BTL IV (15:03)
== END 2022-02-06 13:49 | disposition home or self-care (01) ==
LOC: HO.CT 13:48
PROVIDERS: Visit Provider Internal Medicine Cardiovascular Disease
DX: R06.00 Dyspnea, unspecified (principal)
CPT/HCPCS: 71275; 99212; Q9967

== ENCOUNTER 2022-02-07 12:43 | Outpatient (REF) | payer MEDICARE, SELFPAY ==
[2022-02-07 14:21] LABS: B Type Natriuretic Peptide 99 pg/mL (<100)
== END 2022-02-07 12:44 | disposition home or self-care (01) ==
LOC: HO.HMGCLDS 12:43
PROVIDERS: PCP Internal Medicine; Visit Provider Internal Medicine Cardiovascular Disease
DX: R06.00 Dyspnea, unspecified (principal)
CPT/HCPCS: 36415; 83880

== ENCOUNTER → 2022-03-01 09:17 | Outpatient (REF) | payer MEDICARE, SELFPAY ==
--- NOTE | 2022-03-01 09:22 | CA_ITS ---
Transthoracic Echocardiogram Patient (Last, First, Middle): Moni Coel, Gender: Female Date of : 1945 Age: 77 Procedure Date: 03/01/2022 Procedure Type: Transthoracic Echocardiogram Location: OP Height: 160.02 cm Weight: 75.75 kg BSA: 1.79 m2 Heart Rate: bpm BP: 122 / 80 mmHg Orthopedic Rn: JAMEY Fish MD: Bladimir Mcgee MD Symptoms: R06.00 - Dyspnea, unspecified Study Quality: Fair ECG Rhythm: Sinus Conclusions: - The left ventricular systolic function is normal. The calculated ejection fraction is 63% by biplane method. - No obvious valvular pathology seen on this study. Findings Left Ventricle Normal left ventricular cavity size. The left ventricular systolic function is normal. The calculated ejection fraction is 63% by biplane method. There is no evidence of regional wall motion abnormalities. E/E prime ratio is between 8 and 15 consistent with indeterminate filling pressures. Evidence suggests grade I (mild) diastolic dysfunction. There is mild septal and mild basal asymmetric hypertrophy. Right Ventricle Normal right ventricular cavity size and systolic function. Atria Both atria are normal in size. Aortic Valve There is a normal trileaflet aortic valve. There is no aortic valve stenosis. There is no aortic valve regurgitation. Mitral Valve The mitral valve appears normal. There is trace mitral valve regurgitation. There is no mitral valve stenosis. Pulmonic Valve The pulmonic valve is likely normal. Tricuspid Valve There is trace tricuspid valve regurgitation. The pulmonary artery systolic pressure is normal. Great Vessels The aortic annulus, sinuses of valsalva, and asc aorta are normal in size. Venous The inferior vena cava is normal in size and collapses greater than 50% with inspiration. Pericardium/Pleural There is no evidence of pericardial effusion. Recommendations, Care & Conclusions No obvious valvular pathology seen on this study. Measurements 2D Linear Measurements IVSd: 0.98 0.6-0.9/0.6-1.0 cm LVIDd: 4.49 3.9-5.3/4.2-5.9 cm LVIDd Index: 2.51 2.4-3.2/2.2-3.1 cm/m2 LVIDs: 2.71 2.0-3.6 cm LVPWd: 1.01 0.7-1.1 cm LA Diam: 3.80 2.7-3.8/3.0-4.0 cm LAIDs Index: 2.12 1.5-2.3 cm/m2 LV Mass: 188.97 67-162/88-224 g LV Mass Index: 105.57 43-95/49-115 g/m2 LVOT Diam: 2.00 3.0+(-)1.3 cm 2D Systolic Function EF 4C: 56.60 >55% EF 2C: 71.90 >55% EF BiP: 63.40 >55% Mitral Valve MV Pk E: 0.86 MV PK A: 0.81 MV Decel Time: 304.00 E/A: 1.10 E'Lateral: 6.09 E'Medial: 5.77 E/E' Med: 15.00 E/E' Lat: 14.20 PHT: 89.00 MVA PHT: 2.47 Decel [place]: 2.84 Aortic Valve AoV Pk Charlie: 1.35 AoV Mn Charlie: 0.96 AoV VTI: 0.30 AoV Pk Grad: 7.00 Aov Mn Grad: 4.00 ARTURO Cont.VTI: 2.60 LVOT LVOT Pk Charlie: 1.00 LVOT Mn Charlie: 0.74 LVOT VTI: 0.25 LVOT Pk Grad: 4.00 LVOT Mn Grad: 2.00 LVOT Diam: 2.00 LVOT Area: 3.14 Diastolic Function MV Pk E: 0.86 MV Pk A: 0.81 E/A: 1.10 E'Medial: 5.77 E/E' Med: 15.00 E' Laterial: 6.09 E/E' Lat: 14.20 Right Ventricle TAPSE (mm): 20.70 TVS' Charlie: 12.20 Tricuspid Valve TR Pk Charlie: 2.44 TR Pk Grad: 24.00 RA Press: 3.00 RVSP: 27.00 Great Vessels Aorta Sinus of Valsalva: 3.00 2.0-3.5 cm Ao Asc: 3.10 2.1-3.4 cm Ao Arch: 2.90 Updated in Other Vendor System with Status of Final Perez Cadet MD electronically signed on 03/03/2022 1:02:54 PM with status of Final
== END ==
LOC: HO.CARD 09:17
PROVIDERS: PCP Internal Medicine; Visit Provider Internal Medicine Cardiovascular Disease
DX: R06.00 Dyspnea, unspecified (principal)
CPT/HCPCS: 93306

== ENCOUNTER → 2022-03-23 13:34 | Outpatient (BNVA) | payer MEDICARE, SELFPAY | PROVIDERS: PCP Internal Medicine; Visit Provider Internal Medicine | DX: R05.3 Chronic cough (principal); J44.9 Chronic obstructive pulmonary disease, unspecified; M94.0 Chondrocostal junction syndrome [Tietze]; C90.00 Multiple myeloma not having achieved remission | CPT/HCPCS: 99212 ==

== ENCOUNTER 2022-03-27 06:19 | Inpatient (IN) | payer MEDICARE, SELFPAY ==
[2022-03-27] VITALS (10 sets, daily range): BP systolic 112–163; BP diastolic 52–75; PULSE 91–115; RESP 12–28; TEMP 36.7–39.8; O2SAT 89–95; BMI 28.3
--- NOTE | ~2022-03-27 | XR_ITS ---
EXAMINATION: XR CHEST CLINICAL INFORMATION: Shortness of breath COMPARISON: CT 02/06/2022 TECHNIQUE: Frontal view of the chest was obtained. FINDINGS: Lung volumes are symmetric. There is mild heterogeneous opacity at the medial right lung base. No evidence of pneumothorax, significant pleural effusion, or overt pulmonary edema. Cardiac silhouette appears near the upper limits of normal in size. Chronic posterolateral right rib eighth rib deformity is redemonstrated. XR/XR chest 1V IMPRESSION: Mild heterogeneous right basilar opacity may be due to atelectasis versus developing consolidation in the proper clinical setting.
--- NOTE | 2022-03-27 06:27 | ECG_ITS ---
Test Reason : SOB Blood Pressure : / mmHG Vent. Rate : 099 BPM Atrial Rate : 099 BPM P-R Int : 142 ms QRS Dur : 076 ms QT Int : 294 ms P-R-T Axes : 058 012 094 degrees QTc Int : 377 ms Normal sinus rhythm with sinus arrhythmia Nonspecific ST and T wave abnormality Abnormal ECG When compared with ECG of 14-NOV-2021 13:49, Vent. rate has increased BY 39 BPM Referred By: Generic ED Physician Electronically Signed By:EUGENE HINSON
[2022-03-27 06:48] LABS: MANUAL DIFF FLAG NO
[2022-03-27 06:52] LABS: Basophils Percent Auto 0.7 % (0-2); Eosinophils Percent Auto 0.7 % (0-4); Hematocrit 37.2 % (37.0-47.0); Imm Gran Abs Auto 0.02 X10*3/uL (0.00-0.03); Imm Gran Pct Auto 0.5 % (0.0-0.4); Lymphocytes Absolute Auto 0.1 X10*3/uL (1.2-4.9); Lymphocytes Percent Auto 1.7 % (20-40); Mean Corpuscular HGB Conc 32.3 g/dl (31.0-35.0); Mean Corpuscular Hemoglobin 28.1 pg (27.0-33.0); Mean Corpuscular Volume 87.1 fL (80.0-98.0); Mean Platelet Volume 9.4 fL (9.4-12.3); Monocytes Absolute Auto 0.6 X10*3/uL (0.1-1.2); Neutrophils Absolute Auto 3.5 x10*3/uL (2.0-8.3); Neutrophils Percent Auto 83.4 % (45-73); Platelet Count 130 X10*3/uL (160-400); Red Blood Count 4.27 X10*6/uL (4.20-5.50); Red Cell Distribution Width 14.3 % (11.0-16.0); White Blood Count 4.2 X10*3/uL (4.8-10.8)
[2022-03-27 07:05] LABS: Anion Gap 14 (12-20); Blood Urea Nitrogen 13 mg/dL (9-16); Calcium 8.4 mg/dL (8.4-10.2); Carbon Dioxide 23 mmol/L (22-29); Chloride 103 mmol/L (96-108); Creatinine Clr Calc Pharmacy 47.5; Estimated Glomerular Filt Rate 58; Glucose Random 200 mg/dL (60-115); Potassium 4.6 mmol/L (3.3-5.1); Sodium 135 mmol/L (135-145)
[2022-03-27 07:06] LABS: COVID-19 Test Negative (Negative); IDNOW Serial# 16C4AD1C; Influenza A Negative (Negative); Influenza B2 Negative (Negative)
[2022-03-27 07:12] LABS: Troponin-I High Sensitivity < 3.5 ng/L (<3.5-17.0)
--- NOTE | 2022-03-27 07:24 | ED_ITS ---
HPI - SOB/Dyspnea General Chief Complaint: Dyspnea Stated Complaint: difficulty breathing, copd Time Seen by Provider: 03/27/22 07:12 Source: patient Mode of arrival: ambulatory Limitations: no limitations History of Present Illness HPI Narrative: This is a 77 years old female with history of COPD not on oxygen presented to the emergency department with a week chief complaint of shortness of breath on exertion MD elicited complaint: shortness of breath and cough Pertinent past history: COPD Onset (ago): day(s) (4) Context: occurred during exertion Timing: constant Severity: moderate Exacerbating factors: nothing Relieving factors: oxygen Known history of: COPD Related Data Home Medications Medication Instructions Recorded Confirmed acetaminophen 500 mg tablet 500 mg PO QID PRN Pain 06/21/20 03/27/22 chondroitin sulfate A sodium 400 400 mg PO DAILY 06/21/20 03/27/22 mg capsule flaxseed oil 1,000 mg capsule 1,000 mg PO DAILY 06/21/20 03/27/22 lactobacillus combination no.4 3 3,000 mmu cells PO DAILY 06/21/20 03/27/22 billion cell capsule multivitamin 1 cap PO DAILY 06/21/20 03/27/22 elderberry fruit 0.7 gram-honey 3 7.5 ml PO DAILY PRN Fatigue 12/03/20 03/27/22 gram/7.5 mL oral liquid tramadol 50 mg tablet 50 mg PO BID PRN Pain 12/03/20 03/27/22 glucosamine HCl-sulfate mix 200 1 tab PO DAILY 12/30/20 03/27/22 mg-300 mg tablet mecobalamin (vitamin B12) 1,000 1,000 mcg PO DAILY 12/30/20 03/27/22 mcg chewable tablet (B12 Active) peg 400-propylene glycol (PF) 0.4 0.4 drp DAILY 12/30/20 03/27/22 %-0.3 % eye drops in a dropperette (Systane (PF)) desvenlafaxine succinate 25 mg 25 mg PO DAILY 03/03/21 03/27/22 tablet,extended release 24 hr (Pristiq) cholecalciferol (vitamin D3) 50 50 mcg PO DAILY 09/22/21 03/27/22 mcg (2,000 unit) capsule aspirin 81 mg tablet,delayed 81 mg PO DAILY 01/19/22 03/27/22 release atorvastatin 20 mg tablet 20 mg PO BEDTIME 03/27/22 03/27/22 sulfamethoxazole 800 1 tab PO MOWEFR 03/27/22 03/27/22 mg-trimethoprim 160 mg tablet (Bactrim DS) Previous Rx's Medication Instructions Recorded pantoprazole 40 mg tablet,delayed 1 tab PO DAILY #90 tabs 04/26/21 release (Protonix) losartan 100 mg tablet (Cozaar) 100 mg PO DAILY #90 tabs 05/26/21 metoprolol succinate 50 mg 50 mg PO DAILY #90 tabs 06/02/21 tablet,extended release 24 hr (Toprol XL) valacyclovir 500 mg tablet 500 mg PO DAILY #90 tabs 07/05/21 (Valtrex) albuterol sulfate 90 mcg/actuation 2 puff inhalation Q4-6H PRN 09/21/21 aerosol inhaler (Ventolin HFA) shortness of breath or wheezing 30 days #8.5 grams amlodipine 5 mg tablet 5 mg PO DAILY #90 caps 11/02/21 lorazepam 0.5 mg tablet 0.5 mg PO BID PRN Anxiety #50 tabs 12/30/21 pomalidomide 3 mg capsule 3 mg PO DAILY #21 caps 02/28/22 methylprednisolone 4 mg tablet 4 mg PO DAILY #100 tabs 03/07/22 meloxicam 15 mg tablet 15 mg PO DAILY #90 tabs 03/13/22 Symbicort 160 mcg-4.5 2 puff inhalation BID #10.2 grams 03/23/22 mcg/actuation HFA aerosol inhaler (budesonide-formoterol) promethazine 6.25 mg-codeine 10 5 ml PO Q4-6H PRN severe cough 14 03/24/22 mg/5 mL syrup days #118 mL Allergies Allergy/AdvReac Type Severity Reaction Status Date / Time oxycodone [From OXYCONTIN] Allergy Mild PRURITUS, Verified 03/27/22 06:28 severe itching adhesive tape Allergy Unknown BLISTERS Verified 03/27/22 06:28 cephalexin [Keflex] Allergy Unknown hives Verified 03/27/22 06:28 doxycycline [DOXYCYCLINE] AdvReac Intermediate STOMACH Verified 03/27/22 06:28 PAINS Review of Systems Review of Systems: Yes all other systems are reviewed and are negative Constitutional: Constitutional: Reports no additional constitutional complaints Cardiovascular: Cardiovascular: Reports no additional cardiovascular complaints and Reports dyspnea Respiratory: Respiratory: Reports no additional respiratory complaints, Reports dyspnea and Reports wheezing Allergic/Immunologic: Allergic/Immunologic: Reports wheezing [facility] Past Medical History Medical History Anxiety Asthma Bladder cancer Cataract COPD (chronic obstructive pulmonary disease) Costochondritis Dyspnea on exertion GERD (gastroesophageal reflux disease) Hypertension IBS (irritable bowel syndrome) Multiple myeloma Surgical History H/O cardiac catheterization H/O colonoscopy H/O eye surgery H/O rotator cuff surgery H/O wrist surgery History of arthroscopy of both knees History of esophagogastroduodenoscopy (EGD) History of eyelid surgery History of tonsillectomy Family History Family History Father Pancreatic cancer Diabetes Stroke Mother No problems noted. Sister Diabetes Son No problems noted. Social History Social History Household Members: Spouse [facility] Are you a primary patient centered care specialist to a significant other at home: No Do you presently have visiting nurse or other home services: No Alcohol intake: never Patient Tobacco Use Status: Former Tobacco user Tobacco use type: Cigarette e-Cigarette/Vaping Use: Never Used Second Hand Smoke Exposure: No Use of substances other than those prescribed or required for medical reasons: No Advance Directives: Yes Advance Directives on File: Yes Advance Directives Date on File: 11/11/20 service: No Current occupational status: retired Cognitive needs: No Hearing needs: No Vision needs: Yes Physical Exam Vital Signs: Vital Signs: Last Vital Signs Temp 103.7 F H 03/27/22 08:41 Pulse 98 03/27/22 11:18 Resp 15 03/27/22 11:18 BP 131/66 03/27/22 08:55 Pulse Ox 95 03/27/22 08:55 O2 Del Method 03/27/22 08:55 O2 Flow Rate 2 03/27/22 08:55 BMI result Body Mass Index 28.3 Const: General: cooperative, comfortable and no acute distress Orientation/consciousness: patient oriented x3 Limitations: no limitations HEENT: Head: Yes normal to inspection Ears: hearing grossly normal bilaterally General nose exam: Normal external nose present Face and sinus: Yes normal facial exam Mouth: Normal oral and palatal mucosa present Throat: Yes posterior oropharynx normal Neck: Neck: Yes normal visual inspection Resp: Auscultation: rhonchi and wheezes Cardio: Jugular venous distension: no JVD Rate: regular rate Rhythm: regular rhythm GI: Inspection: Yes normal to inspection Palpation (GI): Soft to palpation, not firm and no aortic enlargement Auscultation: normal bowel sounds Skin: General skin exam: no rashes or lesions noted and turgor normal Neuro: General: patient oriented x3 Extrem: General: Yes normal to inspection Course Reevaluation(s) Reevaluation #1: getting better still will0 O2 requirement will admit Reevaluation #2: lactic acid noted 3.5 but normotensive/afebrile/WBC 4.2 lactic acid elevation likely 2th to Albuterol. SOFA SCORE [address] Vasquez hospitalist. BP OK MDM - SOB/Dyspnea Lab Data Result diagrams: 03/27/22 06:39 03/27/22 06:39 Labs: Lab Results 03/27/22 03/27/22 03/27/22 Range/Units 06:38 06:38 06:39 WBC 4.2 L (4.8-10.8) X10*3/uL RBC 4.27 (4.20-5.50) X10*6/uL Hgb 12.0 (12.0-16.0) g/dl Hct 37.2 (37.0-47.0) % MCV 87.1 (80.0-98.0) fL MCH 28.1 (27.0-33.0) pg MCHC 32.3 (31.0-35.0) g/dl RDW 14.3 (11.0-16.0) % Plt Count 130 L (160-400) X10*3/uL MPV 9.4 (9.4-12.3) fL Immature Gran % (Auto) 0.5 H (0.0-0.4) % Neut % (Auto) 83.4 H (45-73) % Lymph % (Auto) 1.7 L (20-40) % [place] % (Auto) 13.0 H (2-11) % Eos % (Auto) 0.7 (0-4) % Baso % (Auto) 0.7 (0-2) % Lymph # (Auto) 0.1 L (1.2-4.9) X10*3/uL [place] # (Auto) 0.6 (0.1-1.2) X10*3/uL Eos # (Auto) 0.0 (0.0-0.4) X10*3/uL Baso # (Auto) 0.0 (0.0-0.2) X10*3/uL Abs Immat Gran (auto) 0.02 (0.00-0.03) X10*3/uL Absolute Neuts (auto) 3.5 (2.0-8.3) x10*3/uL Absolute Nucleated RBC 0.000 (0.0-0.012) X10*3/uL Nucleated RBC % (auto) 0.0 (0.0-0.2) /100WBC Sodium (135-145) mmol/L Potassium (3.3-5.1) mmol/L Chloride (96-108) mmol/L Carbon Dioxide (22-29) mmol/L Anion Gap (12-20) BUN (9-16) mg/dL Creatinine (0.5-1.4) mg/dL Estim Creat Clear Calc Estimated GFR Random Glucose (60-115) mg/dL Lactic Acid (0.5-2.0) mmol/L Calcium (8.4-10.2) mg/dL Total Bilirubin (0.0-1.0) mg/dL Direct Bilirubin (0.0-0.5) mg/dL AST (5-31) U/L ALT (0-31) U/L Alkaline Phosphatase (39-117) U/L Troponin I High Sens (<3.5-17.0) ng/L B-Natriuretic Peptide (<100) pg/mL Total Protein (6.5-8.0) g/dL Albumin (3.5-5.0) g/dL COVID-19 (RUSTY) Negative (Negative) COVID-19 Clin Com See Note Influenza Type A ([place]) Negative (Negative) Influenza Type B ([place]) Negative (Negative) Influenza A & B Note See Note 07/25/22 07/25/22 07/25/22 Range/Units 06:39 06:39 07:47 WBC (4.8-10.8) X10*3/uL RBC (4.20-5.50) X10*6/uL Hgb (12.0-16.0) g/dl Hct (37.0-47.0) % MCV (80.0-98.0) fL MCH (27.0-33.0) pg MCHC (31.0-35.0) g/dl RDW (11.0-16.0) % Plt Count (160-400) X10*3/uL MPV (9.4-12.3) fL Immature Gran % (Auto) (0.0-0.4) % Neut % (Auto) (45-73) % Lymph % (Auto) (20-40) % [place] % (Auto) (2-11) % Eos % (Auto) (0-4) % Baso % (Auto) (0-2) % Lymph # (Auto) (1.2-4.9) X10*3/uL [place] # (Auto) (0.1-1.2) X10*3/uL Eos # (Auto) (0.0-0.4) X10*3/uL Baso # (Auto) (0.0-0.2) X10*3/uL Abs Immat Gran (auto) (0.00-0.03) X10*3/uL Absolute Neuts (auto) (2.0-8.3) x10*3/uL Absolute Nucleated RBC (0.0-0.012) X10*3/uL Nucleated RBC % (auto) (0.0-0.2) /100WBC Sodium 135 (135-145) mmol/L Potassium 4.6 (3.3-5.1) mmol/L Chloride 103 (96-108) mmol/L Carbon Dioxide 23 (22-29) mmol/L Anion Gap 14 (12-20) BUN 13 (9-16) mg/dL Creatinine 0.93 (0.5-1.4) mg/dL Estim Creat Clear Calc 47.5 Estimated GFR 58 Random Glucose 200 H (60-115) mg/dL Lactic Acid (0.5-2.0) mmol/L Calcium 8.4 D (8.4-10.2) mg/dL Total Bilirubin 0.7 (0.0-1.0) mg/dL Direct Bilirubin 0.3 (0.0-0.5) mg/dL AST 25 (5-31) U/L ALT 21 (0-31) U/L Alkaline Phosphatase 64 (39-117) U/L Troponin I High Sens < 3.5 (<3.5-17.0) ng/L B-Natriuretic Peptide 113 H (<100) pg/mL Total Protein 6.1 L (6.5-8.0) g/dL Albumin 4.1 (3.5-5.0) g/dL COVID-19 ([facility]USTY) (Negative) COVID-19 Clin Com Influenza Type A ([place] [facility]) (Negative) Influenza Type B ([facility] [facility]) (Negative) Influenza A & B Note 03/27/22 Range/Units 08:12 WBC (4.8-10.8) X10*3/uL RBC (4.20-5.50) X10*6/uL Hgb (12.0-16.0) g/dl Hct (37.0-47.0) % MCV (80.0-98.0) fL MCH (27.0-33.0) pg MCHC (31.0-35.0) g/dl RDW (11.0-16.0) % Plt Count (160-400) X10*3/uL MPV (9.4-12.3) fL Immature Gran % (Auto) (0.0-0.4) % Neut % (Auto) (45-73) % Lymph % (Auto) (20-40) % [place] % (Auto) (2-11) % Eos % (Auto) (0-4) % Baso % (Auto) (0-2) % Lymph # (Auto) (1.2-4.9) X10*3/uL [place] # (Auto) (0.1-1.2) X10*3/uL Eos # (Auto) (0.0-0.4) X10*3/uL Baso # (Auto) (0.0-0.2) X10*3/uL Abs Immat Gran (auto) (0.00-0.03) X10*3/uL Absolute Neuts (auto) (2.0-8.3) x10*3/uL Absolute Nucleated RBC (0.0-0.012) X10*3/uL Nucleated RBC % (auto) (0.0-0.2) /100WBC Sodium (135-145) mmol/L Potassium (3.3-5.1) mmol/L Chloride (96-108) mmol/L Carbon Dioxide (22-29) mmol/L Anion Gap (12-20) BUN (9-16) mg/dL Creatinine (0.5-1.4) mg/dL Estim Creat Clear Calc Estimated GFR Random Glucose (60-115) mg/dL Lactic Acid 3.4 H* (0.5-2.0) mmol/L Calcium (8.4-10.2) mg/dL Total Bilirubin (0.0-1.0) mg/dL Direct Bilirubin (0.0-0.5) mg/dL AST (5-31) U/L ALT (0-31) U/L Alkaline Phosphatase (39-117) U/L Troponin I High Sens (<3.5-17.0) ng/L B-Natriuretic Peptide (<100) pg/mL Total Protein (6.5-8.0) g/dL Albumin (3.5-5.0) g/dL COVID-19 ([facility]Y) (Negative) COVID-19 Clin Com Influenza Type A ([place] [facility]) (Negative) Influenza Type B ([facility] [facility]) (Negative) Influenza A & B Note Imaging Data Chest x-ray: Radiologist's impression: COMPARISON: CT 02/06/2022 TECHNIQUE: Frontal view of the chest was obtained. FINDINGS: Lung volumes are symmetric. There is mild heterogeneous opacity at the medial right lung base. No evidence of pneumothorax, significant pleural effusion, or overt pulmonary edema. Cardiac silhouette appears near the upper limits of normal in size. Chronic posterolateral right rib eighth rib deformity is redemonstrated. XR/XR chest 1V IMPRESSION: Mild heterogeneous right basilar opacity may be due to atelectasis versus developing consolidation in the proper clinical setting. ? Dictated By: Rip York MD Signed By: <Electronically signed by Rip York MD in OV> 03/27/22 0655 Discharge Plan Discharge Clinical Impression: Acute exacerbation of chronic obstructive pulmonary disease, Pneumonia Patient Disposition: Admitted As Inpatient
[2022-03-27] MEDS: Albuterol Sulfate (0.083%) 2.5 MG/3 ML VIAL.NEB 7.5 MG INHALE (07:31)
[2022-03-27] MEDS: methylPREDNISolone Sod Succ 125 MG/2 ML VIAL IV (08:05)
[2022-03-27 08:16] LABS: B Type Natriuretic Peptide 113 pg/mL (<100)
[2022-03-27 08:31] LABS: Lactic Acid 3.4 mmol/L (0.5-2.0)
[2022-03-27] MEDS: levoFLOXacin/D5W 750 MG/150 ML PIGGYBACK 100 MG IV (08:34)
--- NOTE | 2022-03-27 08:46 | PHA.MEDREC ---
Pharmacy Consult ? Medication Reconciliation Pharmacy has completed the medication reconciliation.
[2022-03-27] MEDS: 0.9 % Sodium Chloride 1,000 ML 999 ML IVCONT (08:59)
[2022-03-27] MEDS: Acetaminophen 325 MG TABLET 650 MG PO ×2 (09:00→20:10)
--- NOTE | 2022-03-27 09:15 | P.HPHOSP_ITS ---
History of Present Illness Date of Service: 03/27/22 Chief Complaint: cough and shortness of breath This is a 77 year old F with a PMH of diastolic CHF, COPD not on home O2, Multiple myeloma undergoing chemo, HTN, HLD who presents to the ED with compalints of shortness of breath and a productive cough of 1 weeks duration. The patient reports that her SOB was initially with exertion, but now she can barely take a few steps without getting fatigued and short of breath. She appears to be short of breath with a brief conversation. She reports feeling feverish at home, but no measured temps. She reports her cough is productive of greenish sputum. She reports loss of appetite and poor oral intake. She reports seeing her job developer as well as being seen in the urgent care clinic several days prior to admission where she was prescribed anti-tussives. 9- Upon arrival to the ED, the patient was noted to be in respiratory distress with tachypnea and tachycardia. Her oxygen saturation 90% on RA with RR in the high 20/low 30s, She was febrile and tachycardic. CXR showed possible R basilar opacities. She was given IVF, IV levaquin, IV steroids and nebulized bronchodialtors. She has not improved and hence, will be admitted for further care. Review of Systems Review of Systems: negative except HPI [facility] Medical History Anxiety Asthma Bladder cancer Cataract COPD (chronic obstructive pulmonary disease) Costochondritis Dyspnea on exertion GERD (gastroesophageal reflux disease) Hypertension IBS (irritable bowel syndrome) Multiple myeloma Family History Father Pancreatic cancer Diabetes Stroke Mother No problems noted. Sister Diabetes Son No problems noted. Surgical History H/O cardiac catheterization H/O colonoscopy H/O eye surgery H/O rotator cuff surgery H/O wrist surgery History of arthroscopy of both knees History of esophagogastroduodenoscopy (EGD) History of eyelid surgery History of tonsillectomy Social History Household Members: Spouse Housing: Condominium Are you a primary administrator health care facility to a significant other at home: No Do you presently have visiting nurse or other home services: No Alcohol intake: never Patient Tobacco Use Status: Former Tobacco user Tobacco use type: Cigarette e-Cigarette/Vaping Use: Never Used Second Hand Smoke Exposure: No Use of substances other than those prescribed or required for medical reasons: No Advance Directives: Yes Advance Directives on File: Yes Advance Directives Date on File: 11/11/20 service: No Current occupational status: retired Cognitive needs: No Hearing needs: No Vision needs: Yes Meds Allergies Allergy/AdvReac Type Severity Reaction Status Date / Time oxycodone [From OXYCONTIN] Allergy Mild PRURITUS, Verified 03/27/22 06:28 severe itching adhesive tape Allergy Unknown BLISTERS Verified 03/27/22 06:28 cephalexin [Keflex] Allergy Unknown hives Verified 03/27/22 06:28 doxycycline [DOXYCYCLINE] AdvReac Intermediate STOMACH Verified 03/27/22 06:28 PAINS Active Medications: Current Medications Acetaminophen (Acetaminophen 325 Mg Tablet) 650 mg PO Q6H PRN PRN Reason: Pain, Mild (Pain Scale 1-3) Aspirin (Aspirin Enteric Coated 81 Mg Tablet.) 81 mg PO DAILY [facility] Atorvastatin Calcium (Atorvastatin Calcium 20 Mg Tablet) 20 mg PO BEDTIME [facility] Enoxaparin Sodium (Enoxaparin Sodium 40 Mg/0.4 Ml Syringe) 40 mg SUBCUT Q24H [facility] Sodium Chloride (Ns) 1,000 mls @ 999 mls/hr IVCONT .Q1H1M PRABHJOT Stop: 03/27/22 09:45 Last Admin: 03/27/22 08:59 Dose: 999 mls/hr Ipratropium [place] (Ipratropium [place] 0.5 Mg/2.5 Ml Solution) 0.5 mg INHALE RQ4H WHILE AWAKE [facility] Levalbuterol HCl (Levalbuterol Hcl 1.25 Mg/0.5 Ml Vial.Neb) 1.25 mg INHALE RQ4H WHILE AWAKE [facility] Levalbuterol HCl (Levalbuterol Hcl 1.25 Mg/0.5 Ml Vial.Neb) 1.25 mg INHALE Q3H PRN PRN Reason: Wheezing Lorazepam (Lorazepam 0.5 Mg Tablet) 0.5 mg PO BID PRN PRN Reason: Anxiety Methylprednisolone Sodium Succinate (Methylprednisolone Sod Succ 40 Mg/Ml Vial) 40 mg IVPUSH Q8H [facility] Metoprolol Succinate (Metoprolol Succinate Er 50 Mg Tab.Er.24h) 50 mg PO DAILY [facility]; Protocol Non-Formulary Medication (Desvenlafaxine Succinate [Pristiq]) 25 mg PO DAILY [facility] Non-Formulary Medication (Pantoprazole [Protonix]) 1 tab PO DAILY [facility] Ondansetron HCl (Ondansetron Hcl 4 Mg/2 Ml Vial) 4 mg IVPUSH Q8H PRN PRN Reason: Nausea and Vomiting Pharmacy Consult (Consult Rx Perform Med Rec) 1 each MISCELLANE ONCE PRN PRN Reason: Consult order Sodium Chloride (0.9 % Sodium Chloride Flush 3 Ml Syringe) 3 ml IVFLUSH QSHIFT [facility] Vitamin D (Cholecalciferol (Vitamin D3) 25 Mcg Tablet) 50 mcg PO DAILY [facility] Home Medications Medication Instructions Recorded Confirmed Last Taken Type acetaminophen 500 mg tablet 500 mg PO QID PRN Pain 06/21/20 03/27/22 Unknown History chondroitin sulfate A sodium 400 400 mg PO DAILY 06/21/20 03/27/22 Unknown Hi story mg capsule flaxseed oil 1,000 mg capsule 1,000 mg PO DAILY 06/21/20 03/27/22 Unknown H istory lactobacillus combination no.4 3 3,000 mmu cells PO DAILY 06/21/20 03/27/22 Unknown History billion cell capsule multivitamin 1 cap PO DAILY 06/21/20 03/27/22 Unknown History elderberry fruit 0.7 gram-honey 3 7.5 ml PO DAILY PRN Fatigue 12/03/20 03/27/22 Unknown History gram/7.5 mL oral liquid tramadol 50 mg tablet 50 mg PO BID PRN Pain 12/03/20 03/27/22 Unknown History glucosamine HCl-sulfate mix 200 1 tab PO DAILY 12/30/20 03/27/22 Unknown History mg-300 mg tablet mecobalamin (vitamin B12) 1,000 1,000 mcg PO DAILY 12/30/20 03/27/22 Unknown History mcg chewable tablet (B12 Active) peg 400-propylene glycol (PF) 0.4 0.4 drp DAILY 12/30/20 03/27/22 Unknown History %-0.3 % eye drops in a dropperette (Systane (PF)) desvenlafaxine succinate 25 mg 25 mg PO DAILY 03/03/21 03/27/22 Unknown History tablet,extended release 24 hr (Pristiq) cholecalciferol (vitamin D3) 50 50 mcg PO DAILY 09/22/21 03/27/22 Unknown History mcg (2,000 unit) capsule aspirin 81 mg tablet,delayed 81 mg PO DAILY 01/19/22 03/27/22 Unknown History release atorvastatin 20 mg tablet 20 mg PO BEDTIME 03/27/22 03/27/22 Unknown History sulfamethoxazole 800 1 tab PO MOWEFR 03/27/22 03/27/22 Unknown History mg-trimethoprim 160 mg tablet (Bactrim DS) Physical Exam Vital Signs and Narrative: Vital Signs: Last Vital Signs Temp 103.7 F H 03/27/22 08:41 Pulse 115 H 03/27/22 08:55 Resp 26 H 03/27/22 08:55 BP 131/66 03/27/22 08:55 Pulse Ox 95 03/27/22 08:55 O2 Del Method 03/27/22 08:55 O2 Flow Rate 2 03/27/22 08:55 BMI result Body Mass Index 28.3 Const: Other: Constitutional - appears unwell with respiratory distress after exertion Eyes - PERRLA, EOMI Cardiovascular - S1S2, RRR, No edema Respiratory -tachypnea into the upper 20s after conversation; diffuse exp wheezing and scattered rhonchi Gastrointestinal - NT / ND; +BS; No rebound or guarding - No CVA tenderness Extremities - no calf tenderness bilaterally, no swelling Musculoskeletal - Normal inspection, normal ROM Skin - Warm/Dry Neurological - Alert & oriented x3, No focal deficit Psychological - Appropriate affect Results Labs CBC and Chem 7: 03/27/22 06:39 03/27/22 06:39 Labs: Laboratory Results - last 24 hr 03/27/22 03/27/22 03/27/22 06:38 06:38 06:39 MCV 87.1 MCH 28.1 MCHC 32.3 RDW 14.3 Plt Count 130 L MPV 9.4 Immature Gran % (Auto) 0.5 H Neut % (Auto) 83.4 H Lymph % (Auto) 1.7 L [place] % (Auto) 13.0 H Eos % (Auto) 0.7 Baso % (Auto) 0.7 Lymph # (Auto) 0.1 L [place] # (Auto) 0.6 Eos # (Auto) 0.0 Baso # (Auto) 0.0 Abs Immat Gran (auto) 0.02 Absolute Neuts (auto) 3.5 Absolute Nucleated RBC 0.000 Nucleated RBC % (auto) 0.0 Anion Gap Estim Creat Clear Calc Estimated GFR Random Glucose Lactic Acid Calcium Troponin I High Sens B-Natriuretic Peptide COVID-19 (RUSTY) Negative COVID-19 Clin Com See Note Influenza Type A (JOSÉ LUIS) Negative Influenza Type B (JOSÉ LUIS) Negative Influenza A & B Note See Note 03/27/22 03/27/22 03/27/22 06:39 06:39 07:47 MCV MCH MCHC RDW Plt Count MPV Immature Gran % (Auto) Neut % (Auto) Lymph % (Auto) [place] % (Auto) Eos % (Auto) Baso % (Auto) Lymph # (Auto) [place] # (Auto) Eos # (Auto) Baso # (Auto) Abs Immat Gran (auto) Absolute Neuts (auto) Absolute Nucleated RBC Nucleated RBC % (auto) Anion Gap 14 Estim Creat Clear Calc 47.5 Estimated GFR 58 Random Glucose 200 H Lactic Acid Calcium 8.4 D Troponin I High Sens < 3.5 B-Natriuretic Peptide 113 H COVID-19 (RUSTY) COVID-19 Clin Com Influenza Type A (JOSÉ LUIS) Influenza Type B (JOSÉ LUIS) Influenza A & B Note 03/27/22 08:12 MCV MCH MCHC RDW Plt Count MPV Immature Gran % (Auto) Neut % (Auto) Lymph % (Auto) [place] % (Auto) Eos % (Auto) Baso % (Auto) Lymph # (Auto) [place] # (Auto) Eos # (Auto) Baso # (Auto) Abs Immat Gran (auto) Absolute Neuts (auto) Absolute Nucleated RBC Nucleated RBC % (auto) Anion Gap Estim Creat Clear Calc Estimated GFR Random Glucose Lactic Acid 3.4 H* Calcium Troponin I High Sens B-Natriuretic Peptide COVID-19 (RUSTY) COVID-19 Clin Com Influenza Type A (JOSÉ LUIS) Influenza Type B (JOSÉ LUIS) Influenza A & B Note Imaging Radiologist's Impressions: Impressions Chest X-Ray 03/27/22 06:48 IMPRESSION: Mild heterogeneous right basilar opacity may be due to atelectasis versus developing consolidation in the proper clinical setting. Assessment and Plan (1) Pneumonia: Status: Acute (2) Acute exacerbation of chronic obstructive pulmonary disease: Status: Acute Plan This is a 77 year old F with a PMH of diastolic CHF, COPD not on home O2, Multiple myeloma undergoing chemo, HTN, HLD who presents to the ED with compalints of shortness of breath and a productive cough of 1 weeks duration. Her presentation and work up are consistent with pneumonia. 1. Severe sepsis due to pneumonia pneumonia severity index - score 113 (risk class IV) Met CMS sepsis criteria with tachycardia, tachypnea and fevers; severe features of elevated lactate Given active chemo treatment, concern over drug resistant organisms; she has an allergy to cephalexin and hence given IV levaquin in the ED -- will add IV vancomcyin and check nasal MRSA f/u cultures trend lactate 2. COPD exacerbation due to #1 IV solu-medrol and scheduled + PRN nebulized bronchodilators 3. HTN hold antihypertensives today 4.Chronic HFpEF per last echo in February 2022, clinically not in overload not in diuretics, use IVF judiciously 5. Multiple myeloma continue her baseline prophylactic meds Continue otherbaseline meds as appropriate. Full Code is HCP In light of the patients severe sepsis + her immunocompromised state -- I anticipate a medically necessary inpatient hospitalization which is likely to span at least 2 midnights for treatment and monitoring of response. This cannot be completed in a less acute setting. Quality Stroke Does the patient have a stroke diagnosis?: No VTE Prior VTE?: No VTE Risk Level:: Medical - moderate - high VTE Device Contraindication: Treatment Not Indicated VTE Drug Contraindication: N/A - Med Ordered
[2022-03-27 09:37] LABS: Alanine Aminotransferase 21 U/L (0-31); Albumin Level 4.1 g/dL (3.5-5.0); Alkaline Phosphatase 64 U/L (39-117); Aspartate Amino Transferase 25 U/L (5-31); Bilirubin Direct 0.3 mg/dL (0.0-0.5); Bilirubin Total 0.7 mg/dL (0.0-1.0); Total Protein 6.1 g/dL (6.5-8.0)
--- NOTE | 2022-03-27 09:42 | PHA.PROG ---
Admission Date/Time: March 27, 2022 09:04 Indication: SEPSIS Weight in k.575 kg Adjusted body weight in K.47 [place] body weight in Kg: Obesity Dosing Indication % IBW: Serum Creatinine - Last 168 Hours 03/27/22 06:39 Creatinine 0.93 Estimated CrCl and GFR - Last 168 Hours 03/27/22 06:39 Estim Creat Clear Calc 47.5 Estimated GFR 58 Vancomycin Loading Dose: 1500 MG Current Vancomycin Dosing Regimen: 1250MG Q24H Vancomycin Monitoring using AUC goal of 400 - 600 range with trough as surrogate marker: AUC 504, TROUGH 15.1 Date and Time for next Vancomycin Level to be drawn: RANDOM 03/29 @0800 Pharmacist Comments on Vancomycin Plan: Vancomycin dosing will take advantage of [employer] as a clinical decision support tool that uses Bayesian modeling to calculate individual patient's pharmacokinetic parameters and forecast the patient's drug concentration time course with the target goal AUC 24 range of 400 - 600 mg/L/hr.
[2022-03-27 10:15] LABS: Reflex Lactate? Lactic Acid Added
[2022-03-27] MEDS: Ipratropium Bromide 0.5 MG/2.5 ML SOLUTION INHALE ×3 (11:16→20:15)
[2022-03-27 11:25] LABS: ~Lactic Acid-LAB USE ONLY 2.2 mmol/L (0.5-2.0)
[2022-03-27 13:02] LABS: Reflex Lactate? 2 Y
[2022-03-27 14:00] LABS: ~Lactic Acid-LAB USE ONLY 3.8 mmol/L (0.5-2.0)
[2022-03-27] MEDS: Enoxaparin Sodium 40 MG/0.4 ML SYRINGE SUBCUT (14:36)
[2022-03-27] MEDS: Sulfamethox/Trimeth 800/160 TABLET 1 TAB PO (14:37)
[2022-03-27] MEDS: vancomycin HCL 1,500 MG in 0.9 % Sodium Chloride 500 ML 333.33 MG IV (14:37)
[2022-03-27] MEDS: Metoprolol Succinate ER 50 MG TAB.ER.24H PO (14:37)
[2022-03-27] MEDS: Aspirin Enteric Coated 81 MG TABLET.DR PO (14:37)
[2022-03-27] MEDS: methylPREDNISolone Sod Succ 40 MG/ML VIAL IVPUSH ×2 (14:37→20:09)
[2022-03-27] MEDS: valACYclovir HCL 500 MG TABLET PO (14:37)
[2022-03-27] MEDS: LORazepam 0.5 MG TABLET PO ×2 (16:18→20:39)
--- NOTE | 2022-03-27 16:20 | PC.NURSE ---
Pt feeling jittery and unable to calm herself . VSS. PRN ativan given
--- NOTE | 2022-03-27 17:01 | HE.PHANOTE ---
PT OWN Nurse sent up two patient own meds; desvenlafaxine and the pomalyst. Confirmed with doc that we are not continuing the pomalyst at the moment. Sent back down to give back to patient to be brought home. PT own label generated for the desvenlafaxine to be continued through admission.
--- NOTE | 2022-03-27 17:34 | PC.NURSE ---
Report given to Ivelisse CONNOR. Awaiting room to be cleaned.
[2022-03-27] MEDS: Atorvastatin Calcium 20 MG TABLET PO (20:10)
[2022-03-27] MEDS: 0.9 % Sodium Chloride Flush 3 ML SYRINGE IVFLUSH (20:17)
[2022-03-27] MEDS: Furosemide 40 MG/4 ML VIAL IVPUSH (21:05)
[2022-03-27 21:38] LABS: B Type Natriuretic Peptide 181 pg/mL (<100)
--- NOTE | 2022-03-27 22:50 | MHC.PIE ---
p; pt noted with increased sob, lung sounds crackles throughout, pt noted with increased anxiety and agitation. note; prn ativan bid given at 1618 i; dr novoa notified; give prn ativan early now, new order lasix now, lab now e; pt in bed comfortable, pt showing no sign of sob, will cont to monitor
[2022-03-28] VITALS (14 sets, daily range): BP systolic 111–184; BP diastolic 55–79; PULSE 71–89; RESP 16–24; TEMP 36.1–37.7; O2SAT 89–97
[2022-03-28] MEDS: Zolpidem Tartrate 5 MG TABLET PO ×2 (03:22→19:47)
[2022-03-28] MEDS: Omeprazole 20 MG CAPSULE.DR PO (05:41)
[2022-03-28] MEDS: methylPREDNISolone Sod Succ 40 MG/ML VIAL IVPUSH ×2 (05:41→12:40)
[2022-03-28] MEDS: LORazepam 1 MG TABLET PO (05:41)
[2022-03-28 05:48] LABS: Hematocrit 34.8 % (37.0-47.0); Hemoglobin 11.1 g/dl (12.0-16.0); Mean Corpuscular HGB Conc 31.9 g/dl (31.0-35.0); Mean Corpuscular Volume 87.7 fL (80.0-98.0); Mean Platelet Volume 9.4 fL (9.4-12.3); Platelet Count 134 X10*3/uL (160-400); Red Blood Count 3.97 X10*6/uL (4.20-5.50); Red Cell Distribution Width 14.5 % (11.0-16.0); White Blood Count 3.6 X10*3/uL (4.8-10.8)
--- NOTE | 2022-03-28 05:51 | MHC.PIE ---
p; pt c/o sob, resp notified and prn xopenex given with little to no result. note; pt is noted with increased anxiety and restlessness over night. i; dr novoa notified; new order ativan 1mg po now e; will cont to monitor
[2022-03-28 06:23] LABS: Anion Gap 14 (12-20); Blood Urea Nitrogen 17 mg/dL (9-16); Calcium 8.1 mg/dL (8.4-10.2); Carbon Dioxide 23 mmol/L (22-29); Chloride 104 mmol/L (96-108); Estimated Glomerular Filt Rate 58; Glucose Random 183 mg/dL (60-115); Potassium 4.7 mmol/L (3.3-5.1); Sodium 136 mmol/L (135-145)
--- NOTE | 2022-03-28 07:10 | HE.PHANOTE ---
MARK GONZALEZ CONTINUE CURRENT DOSE, NEXT TROUGH IS DUE 03/29 @ 1200. HAD TO RETIME TROUGH AND DOSE SINCE GIVEN 4 HOURS LATE. Thanks Dioni
[2022-03-28] MEDS: Ipratropium Bromide 0.5 MG/2.5 ML SOLUTION INHALE ×4 (07:41→19:48)
[2022-03-28] MEDS: 0.9 % Sodium Chloride Flush 3 ML SYRINGE IVFLUSH ×3 (08:15→19:47)
[2022-03-28] MEDS: Cholecalciferol (Vitamin D3) 25 MCG TABLET 50 MCG PO (08:15)
[2022-03-28] MEDS: Enoxaparin Sodium 40 MG/0.4 ML SYRINGE SUBCUT (08:15)
[2022-03-28] MEDS: Metoprolol Succinate ER 50 MG TAB.ER.24H PO (08:15)
[2022-03-28] MEDS: valACYclovir HCL 500 MG TABLET PO (08:15)
[2022-03-28] MEDS: Aspirin Enteric Coated 81 MG TABLET.DR PO (08:15)
[2022-03-28] MEDS: DESVENLAFAXINE SUCCINATE 25 MG 25 EACH PO (08:22)
[2022-03-28] MEDS: LORazepam 0.5 MG TABLET PO ×2 (08:24→19:47)
--- NOTE | 2022-03-28 10:01 | MHC.CM.PN ---
PATIENT LIVES WITH HER SPOUSE/HCP (ON FILE AND VERIFIED) SHE HAS BEEN VACCINATED AGAINST COVID-19 X 5. PATIENT HAS APPOINTMENTS AT [facility] [place] AND [facility] WITH [facility]. HER NURSE NAVIGATOR IS SUNITA WITT SHE IS ASKING FOR A REFERRAL TO [facility] FOR ASSISTANCE WITH HOME CHORES. CASE MANAGEMENT TO INITIATE IMM 03/28 IN CHART
[2022-03-28] MEDS: Benzonatate 100 MG CAPSULE PO (12:40)
[2022-03-28] MEDS: vancomycin HCL 1,250 MG in 0.9 % Sodium Chloride 250 ML 166.67 MG IV (12:40)
[2022-03-28] MEDS: guaiFENesin 100 MG/5 ML LIQUID PO ×3 (12:40→23:15)
--- NOTE | 2022-03-28 13:39 | HO.PM.IMPN ---
Subjective Subjective Date of Service: 03/28/22 Interval History: copd Exacerbation, pneumonia Review of Systems patient is still very short of talking broken sentences also aggressive cough on and off anahi sputum denies any fever or chills. Seems generalized weak. Physical Exam Vital Signs: Vital Signs: Last Vital Signs Temp 99.8 F 03/28/22 11:31 Pulse 83 03/28/22 11:31 Resp 20 03/28/22 11:31 BP 124/56 L 03/28/22 11:31 Pulse Ox 92 03/28/22 11:31 O2 Del Method 03/28/22 11:31 O2 Flow Rate 3 03/28/22 11:31 BMI result Body Mass Index 28.3 Appearance: Alert.? Oriented X3.? talking in short sentences .? Eyes: Pupils equal, round and reactive to light.? Sclera nonicteric.? ENT: Pharynx normal.? Moist mucous membranes. cvs: rrr, [id number] . res: b/l wheezing abd: no rebound or guarding ,nt, bs present. ext pulses present , no cyanosis . neuro: axo3 , nonfocal.generlaised weak Objective Data Active Medications Acetaminophen (Acetaminophen 325 Mg Tablet) 650 mg PO Q6H PRN PRN Reason: Pain, Mild (Pain Scale 1-3) Last Admin: 03/27/22 20:10 Dose: 650 mg Documented By: CHRISTIAN Aspirin (Aspirin Enteric Coated 81 Mg Tablet.) 81 mg PO DAILY [facility] Last Admin: 03/28/22 08:15 Dose: 81 mg Documented By: MOODY Atorvastatin Calcium (Atorvastatin Calcium 20 Mg Tablet) 20 mg PO BEDTIME [facility] Last Admin: 03/27/22 20:10 Dose: 20 mg Documented By: CHRISTIAN Enoxaparin Sodium (Enoxaparin Sodium 40 Mg/0.4 Ml Syringe) 40 mg SUBCUT Q24H [facility] Last Admin: 03/28/22 08:15 Dose: 40 mg Documented By: MOODY Guaifenesin (Guaifenesin 100 Mg/5 Ml Liquid) 5 ml PO Q6H [facility] Last Admin: 03/28/22 12:40 Dose: 5 ml Documented By: MOODY Vancomycin HCl 1,250 mg/ (Sodium Chloride) 250 mls @ 166.667 mls/hr IV Q24H [facility] Last Admin: 03/28/22 12:40 Dose: 166.67 mls/hr Documented By: MOODY Levofloxacin (Levaquin) 750 mg in 150 mls @ 100 mls/hr IV Q48H [facility] Ipratropium [place] (Ipratropium [place] 0.5 Mg/2.5 Ml Solution) 0.5 mg INHALE RQ4H WHILE AWAKE [facility] Last Admin: 03/28/22 11:25 Dose: 0.5 mg Documented By: JAMES Levalbuterol HCl (Levalbuterol Hcl 1.25 Mg/0.5 Ml Vial.Neb) 1.25 mg INHALE RQ4H WHILE AWAKE [facility] Last Admin: 03/28/22 11:25 Dose: 1.25 mg Documented By: JAMES Levalbuterol HCl (Levalbuterol Hcl 1.25 Mg/0.5 Ml Vial.Neb) 1.25 mg INHALE Q3H PRN PRN Reason: Wheezing Last Admin: 03/28/22 04:42 Dose: 1.25 mg Documented By: BAKARI Lorazepam (Lorazepam 0.5 Mg Tablet) 0.5 mg PO BID PRN PRN Reason: Anxiety Last Admin: 03/28/22 08:24 Dose: 0.5 mg Documented By: MOODY Methylprednisolone Sodium Succinate (Methylprednisolone Sod Succ 40 Mg/Ml Vial) 40 mg IVPUSH Q8H [facility] Last Admin: 03/28/22 12:40 Dose: 40 mg Documented By: MOODY Metoprolol Succinate (Metoprolol Succinate Er 50 Mg Tab.Er.24h) 50 mg PO DAILY [facility]; Protocol Last Admin: 03/28/22 08:15 Dose: 50 mg Documented By: MOODY Pt Own ( Desvenlafaxine Succinate [Pristiq] 25 Mg Tablet Extended Release 25 mg PO DAILY [facility] Last Admin: 03/28/22 08:22 Dose: 25 mg Documented By: MOODY Omeprazole (Omeprazole 20 Mg Capsule.) 20 mg PO DAILY@0630 [facility] Last Admin: 03/28/22 05:41 Dose: 20 mg Documented By: CHRISTIAN Ondansetron HCl (Ondansetron Hcl 4 Mg/2 Ml Vial) 4 mg IVPUSH Q8H PRN PRN Reason: Nausea and Vomiting Pharmacy Consult (Consult Rx Perform Med Rec) 1 each MISCELLANE ONCE PRN PRN Reason: Consult order Pharmacy Consult (Consult Rx Vancomycin Dosing) 1 each MISCELLANE DAILY PRN PRN Reason: Consult order Sodium Chloride (0.9 % Sodium Chloride Flush 3 Ml Syringe) 3 ml IVFLUSH QSHIFT [facility] Last Admin: 03/28/22 08:15 Dose: 3 ml Documented By: MOODY Trimethoprim/Sulfamethoxazole (Sulfamethox/Trimeth 800/160 Tablet) 1 tab PO MOWEFR [facility] Last Admin: 03/27/22 14:37 Dose: 1 tab Documented By: FAYE Valacyclovir HCl (Valacyclovir Hcl 500 Mg Tablet) 500 mg PO DAILY [facility] Last Admin: 03/28/22 08:15 Dose: 500 mg Documented By: MOODY Vitamin D (Cholecalciferol (Vitamin D3) 25 Mcg Tablet) 50 mcg PO DAILY [facility] Last Admin: 03/28/22 08:15 Dose: 50 mcg Documented By: MOODY Zolpidem Tartrate (Zolpidem Tartrate 5 Mg Tablet) 5 mg PO BEDTIME PRN PRN Reason: Insomnia Labs CBC & Chem 7: 03/28/22 05:17 03/28/22 05:17 Labs: Laboratory Results - last 24 hr 03/27/22 03/27/22 03/28/22 13:27 21:04 05:17 MCV 87.7 MCH 28.0 MCHC 31.9 RDW 14.5 Plt Count 134 L MPV 9.4 Absolute Nucleated RBC 0.000 Nucleated RBC % (auto) 0.0 Anion Gap Estim Creat Clear Calc Estimated GFR Random Glucose Lactic Acid F/U @ 4Hr 3.8 H* Calcium B-Natriuretic Peptide 181 H 03/28/22 05:17 MCV MCH MCHC RDW Plt Count MPV Absolute Nucleated RBC Nucleated RBC % (auto) Anion Gap 14 Estim Creat Clear Calc 47.0 Estimated GFR 58 Random Glucose 183 H Lactic Acid F/U @ 4Hr Calcium 8.1 L B-Natriuretic Peptide Microbiology Microbiology Results: Microbiology 03/27/22 08:12 Blood Culture - Preliminary Blood - Venous No growth after 24 hours. 03/27/22 07:55 Blood Culture - Preliminary Blood - Venous No growth after 24 hours. Assessment and Plan (1) Acute exacerbation of chronic obstructive pulmonary disease: Status: Acute (2) Pneumonia: Status: Acute Plan 77 year old F with a PMH of diastolic CHF, COPD not on home O2, Multiple myeloma undergoing chemo, HTN, HLD who presents to the ED with compalints of shortness of breath and a productive cough of 1 weeks duration. Her presentation and work up are consistent with pneumonia. 1. Severe sepsis due to pneumonia sob and cough similar to yesterday still has leucopenia, intermittent tachypnea blood cultures prelim @24hrs lactic acidosis possible related to nebs. Given active chemo treatment, concern over drug resistant organisms; she has an allergy to cephalexin and hence given IV levaquin in the ED -- will add IV vancomcyin and check nasal MRSA. added tesslon f/u cultures 2. COPD exacerbation due to above. IV solu-medrol and scheduled + PRN nebulized bronchodilators 3. HTN hold antihypertensives today 4.Chronic? HFpEF per last echo in February 2022, clinically not in overload not in diuretics, use IVF judiciously 5. Multiple myeloma continue her baseline prophylactic meds inpatient need: copd excerebation/sepsis /pneumonia -needs iv antiobiotics and steriods. is HCP Quality Stroke Does the patient have a stroke diagnosis?: No VTE Prior VTE?: No VTE Risk Level:: Medical - moderate - high VTE Device Contraindication: Treatment Not Indicated VTE Drug Contraindication: N/A - Med Ordered
[2022-03-28 13:56] LABS: MRSA Nasal PCR NEGATIVE (Negative); SA Nasal PCR NEGATIVE (Negative)
[2022-03-28] MEDS: Magnesium Sulfate/D5W 1 GM/100 ML PIGGYBACK IV (17:43)
[2022-03-28] MEDS: Albuterol/Iprat 2.5/0.5MG 3 ML AMPUL.NEB INHALE (17:44)
[2022-03-28] MEDS: Acetaminophen 325 MG TABLET 650 MG PO (19:47)
[2022-03-28] MEDS: Atorvastatin Calcium 20 MG TABLET PO (19:47)
[2022-03-28] MEDS: methylPREDNISolone Sod Succ 125 MG/2 ML VIAL 60 MG IVPUSH (19:47)
[2022-03-29] VITALS (10 sets, daily range): BP systolic 107–163; BP diastolic 55–74; PULSE 67–92; RESP 16–22; TEMP 36.3–36.8; O2SAT 90–96
[2022-03-29] MEDS: ondansetron HCL 4 MG/2 ML VIAL IVPUSH (04:32)
[2022-03-29] MEDS: methylPREDNISolone Sod Succ 125 MG/2 ML VIAL 60 MG IVPUSH ×3 (04:32→20:12)
[2022-03-29] MEDS: Omeprazole 20 MG CAPSULE.DR PO ×3 (04:32→20:13)
[2022-03-29] MEDS: guaiFENesin 100 MG/5 ML LIQUID PO ×4 (04:32→23:33)
[2022-03-29 07:05] LABS: Hematocrit 33.2 % (37.0-47.0); Hemoglobin 10.6 g/dl (12.0-16.0); Mean Corpuscular HGB Conc 31.9 g/dl (31.0-35.0); Mean Corpuscular Volume 87.8 fL (80.0-98.0); Mean Platelet Volume 9.3 fL (9.4-12.3); Platelet Count 121 X10*3/uL (160-400); Red Blood Count 3.78 X10*6/uL (4.20-5.50); Red Cell Distribution Width 14.6 % (11.0-16.0)
[2022-03-29 07:11] LABS: White Blood Count 2.4 X10*3/uL (4.8-10.8)
[2022-03-29 07:22] LABS: Anion Gap 14 (12-20); Blood Urea Nitrogen 21 mg/dL (9-16); Calcium 7.9 mg/dL (8.4-10.2); Carbon Dioxide 24 mmol/L (22-29); Chloride 106 mmol/L (96-108); Creatinine Clr Calc Pharmacy 59.8; Estimated Glomerular Filt Rate > 60; Glucose Random 151 mg/dL (60-115); Potassium 4.7 mmol/L (3.3-5.1); Sodium 139 mmol/L (135-145)
[2022-03-29] MEDS: Enoxaparin Sodium 40 MG/0.4 ML SYRINGE SUBCUT (08:06)
[2022-03-29] MEDS: levoFLOXacin/D5W 750 MG/150 ML PIGGYBACK 100 MG IV (08:06)
[2022-03-29] MEDS: valACYclovir HCL 500 MG TABLET PO (08:07)
[2022-03-29] MEDS: DESVENLAFAXINE SUCCINATE 25 MG 25 EACH PO (08:07)
[2022-03-29] MEDS: Cholecalciferol (Vitamin D3) 25 MCG TABLET 50 MCG PO (08:07)
[2022-03-29] MEDS: Metoprolol Succinate ER 50 MG TAB.ER.24H PO (08:07)
[2022-03-29] MEDS: 0.9 % Sodium Chloride Flush 3 ML SYRINGE IVFLUSH ×3 (08:07→20:13)
[2022-03-29] MEDS: LORazepam 0.5 MG TABLET PO ×2 (08:07→20:18)
[2022-03-29] MEDS: Aspirin Enteric Coated 81 MG TABLET.DR PO (08:07)
--- NOTE | 2022-03-29 08:22 | HE.PHANOTE ---
sakshi espinoza continue current dose, next trough due @1200
[2022-03-29 08:59] LABS: VBG Base Excess 1.4 mmol/L; VBG HCO3 27 mmol/L (22-26); VBG pCO2 47 mmHg; VBG pH 7.36 (7.32-7.43); VBG pO2 44 mmHg
[2022-03-29 09:04] LABS: Venous Blood Gas Refer to POC result
--- NOTE | 2022-03-29 09:05 | HE.PHANOTE ---
Renal function has improved. CrCl 59.8 today. Recommended to increase levofloxacin dose to [address] Antonio. [address]. Antonio agreed dose has been changed. Yee Perez, AbdirahmanD
[2022-03-29] MEDS: Ipratropium Bromide 0.5 MG/2.5 ML SOLUTION INHALE ×4 (10:01→19:47)
--- NOTE | 2022-03-29 10:39 | P.CDIC_ITS ---
CDI Concurrent Query Documentation Clarification: PHYSICIAN'S DOCUMENTATION REQUEST Date of Query: 03/29/22 1040 Patient Name: Moni Cole Admit Date: 03/27/22 Dear Doctor, A review of the medical record indicates additional documentation may be needed. Please review below and update the documentation accordingly. Clinical Indicators: Risk Factors/Clinical Indicators/Treatments Ed: 03/27 - Shortness of breath, barely can take steps without getting sob, brief in conversation, cough, productive, green sputum, dyspnea and wheezing. Respiratory distress w tachypnea and tachycardia, oxygen sat 90% on RA w RR high 20/30's, RR 26 on 2 liters NC pulse ox now 95%. ED Relieving Factors: Oxygen Recognized standard criteria for respiratory failure includes: (Source: [facility] Hospitalist Jul 2013) ABGs (1 or more) Symptoms: ? PO2 <60 or RA SpO2 <91% ? Tachypnea, SOB, dyspnea ? PcO2 >50 and pH <7.35 ? Pallor or cyanosis ? pO2 decrease or pcO2 increase ? Anxiety or restlessness by 10 mm/Hg from baseline if known ? Use of accessory muscles ? Retractions (grunting in newborns) ? Unable to speak in complete sentences Clarify which of the following accurately represents the patient's respiratory status: * Acute respiratory failure (POA, Resolved etc.) * Other if known * Unable to determine Use of terms such as suspected, likely, concern for, or probable (associated with a specific diagnosis that is being evaluated, monitored, or treated as if it exists) are acceptable and can be coded in the inpatient setting, when documented at the time of discharge. Thank you, Lyndsey Albarran [facility], CDIS Extension: [phone] Please use your independent medical judgment in providing your response. THIS QUERY IS PART OF THE PERMANENT MEDICAL RECORD Provider Response: Other Other Diagnosis: acute hypoxemic respiratory failure secondary to COPD/pneumonia
--- NOTE | 2022-03-29 11:40 | P.CONPL_ITS ---
History of Present Illness History of Present Illness Consult date: 03/29/22 Requesting physician: Caio Antonio Chief complaint: Cough, shortness of breath Narrative: 77-year-old lady with underlying history of mild COPD, CHF multiple myeloma on chemo, normally followed by Dr. Flores admitted on 03/27/2022 with approximately 5 day history slowly worsening productive cough. On ER evaluation patient noted to be hypoxic and have right basilar pneumonia, also with COPD exacerbation. She was started on supplemental oxygen, Levaquin, systemic glucocorticoids and admitted to [facility]. Her symptoms are slowly improving, Though she continues to require supplemental oxygen still has mild expiratory wheeze, and her cough is productive of greenish to brownish sputum. Review of Systems Constitutional: Constitutional: Denies daytime sleepiness, Denies excessive sweating, Reports fatigue, Denies fever(s), Denies lethargy, Denies malaise, Denies night sweats, Denies snoring and Denies weight loss Eyes: Eyes: Denies blurry vision and Denies itchy eyes ENT: Denies nasal congestion, Denies post nasal drip, Denies sinus pain, Denies sinus pressure and Denies other ( Thrush) Cardiovascular: Cardiovascular: Denies chest pain, Denies pedal edema, Denies dyspnea, Reports dyspnea on exertion, Denies orthopnea and Denies paroxysmal nocturnal dyspnea Respiratory: Respiratory: Reports cough, Denies hemoptysis, Reports excessive phlegm production, Denies dyspnea, Reports dyspnea on exertion, Denies snoring and Denies wheezing Gastrointestinal: Gastrointestinal: Denies abdominal pain and Denies heartburn Musculoskeletal: Musculoskeletal: Denies myalgias, Denies arthralgias and Denies joint swelling Integumentary/Breasts: Skin/Breast: Denies rash Neurologic: Denies memory loss and Denies seizure-like activity Psychiatric: Psychiatric: Denies abnormal sleep pattern, Denies anxiety and Denies memory loss Endocrine: Endocrine: Denies excessive sweating, Reports fatigue and Denies heat intolerance Hematologic/Lymphatic: Hematologic/Lymphatic: Denies easy bruising Allergic/Immunologic: Allergic/Immunologic: Denies itchy eyes, Denies seasonal rhinorrhea and Denies wheezing PMFSH Past Medical History Medical History Anxiety Asthma Bladder cancer Cataract COPD (chronic obstructive pulmonary disease) Costochondritis Dyspnea on exertion GERD (gastroesophageal reflux disease) Hypertension IBS (irritable bowel syndrome) Multiple myeloma Family History Family History Father Pancreatic cancer Diabetes Stroke Mother No problems noted. Sister Diabetes Son No problems noted. Surgical History Surgical History H/O cardiac catheterization H/O colonoscopy H/O eye surgery H/O rotator cuff surgery H/O wrist surgery History of arthroscopy of both knees History of esophagogastroduodenoscopy (EGD) History of eyelid surgery History of tonsillectomy Social History Social History Household Members: Spouse Housing: [facility] Are you a primary director career to a significant other at home: No Do you presently have visiting nurse or other home services: No Alcohol intake: never Patient Tobacco Use Status: Former Tobacco user Tobacco use type: Cigarette e-Cigarette/Vaping Use: Never Used Second Hand Smoke Exposure: No Advance Directives Date on File: 11/11/20 service: No Current occupational status: retired Cognitive needs: No Hearing needs: No Vision needs: Yes Meds Allergies Allergy/AdvReac Type Severity Reaction Status Date / Time oxycodone [From OXYCONTIN] Allergy Mild PRURITUS, Verified 03/27/22 06:28 severe itching adhesive tape Allergy Unknown BLISTERS Verified 03/27/22 06:28 cephalexin [Keflex] Allergy Unknown hives Verified 03/27/22 06:28 doxycycline [DOXYCYCLINE] AdvReac Intermediate STOMACH Verified 03/27/22 06:28 PAINS Active Medications: Current Medications Acetaminophen (Acetaminophen 325 Mg Tablet) 650 mg PO Q6H PRN PRN Reason: Pain, Mild (Pain Scale 1-3) Last Admin: 03/28/22 19:47 Dose: 650 mg Aspirin (Aspirin Enteric Coated 81 Mg Tablet.Dr) 81 mg PO DAILY [facility] Last Admin: 03/29/22 08:07 Dose: 81 mg Atorvastatin Calcium (Atorvastatin Calcium 20 Mg Tablet) 20 mg PO BEDTIME [facility] Last Admin: 03/28/22 19:47 Dose: 20 mg Enoxaparin Sodium (Enoxaparin Sodium 40 Mg/0.4 Ml Syringe) 40 mg SUBCUT Q24H [facility] Last Admin: 03/29/22 08:06 Dose: 40 mg Guaifenesin (Guaifenesin 100 Mg/5 Ml Liquid) 5 ml PO Q6H [facility] Last Admin: 03/29/22 04:32 Dose: 5 ml Vancomycin HCl 1,250 mg/ (Sodium Chloride) 250 mls @ 166.667 mls/hr IV Q24H [facility] Last Infusion: 03/28/22 14:27 Dose: Infused Levofloxacin (Levaquin) 750 mg in 150 mls @ 100 mls/hr IV Q24H [facility] Ipratropium [place] (Ipratropium [place] 0.5 Mg/2.5 Ml Solution) 0.5 mg INHALE RQ4H WHILE AWAKE [facility] Last Admin: 03/29/22 10:01 Dose: 0.5 mg Levalbuterol HCl (Levalbuterol Hcl 1.25 Mg/0.5 Ml Vial.Neb) 1.25 mg INHALE RQ4H WHILE AWAKE [facility] Last Admin: 03/29/22 10:01 Dose: 1.25 mg Levalbuterol HCl (Levalbuterol Hcl 1.25 Mg/0.5 Ml Vial.Neb) 1.25 mg INHALE Q3H PRN PRN Reason: Wheezing Last Admin: 03/29/22 04:46 Dose: 1.25 mg Lorazepam (Lorazepam 0.5 Mg Tablet) 0.5 mg PO BID PRN PRN Reason: Anxiety Last Admin: 03/29/22 08:07 Dose: 0.5 mg Methylprednisolone Sodium Succinate (Methylprednisolone Sod Succ 125 Mg/2 Ml Vial) 60 mg IVPUSH Q8H [facility] Last Admin: 03/29/22 04:32 Dose: 60 mg Metoprolol Succinate (Metoprolol Succinate Er 50 Mg Tab.Er.24h) 50 mg PO DAILY [facility]; Protocol Last Admin: 03/29/22 08:07 Dose: 50 mg Pt Own ( Desvenlafaxine Succinate [Pristiq] 25 Mg Tablet Extended Release 25 mg PO DAILY [facility] Last Admin: 03/29/22 08:07 Dose: 25 mg Omeprazole (Omeprazole 20 Mg Capsule.Dr) 20 mg PO BID [facility] Ondansetron HCl (Ondansetron Hcl 4 Mg/2 Ml Vial) 4 mg IVPUSH Q8H PRN PRN Reason: Nausea and Vomiting Last Admin: 03/29/22 04:32 Dose: 4 mg Pharmacy Consult (Consult Rx Perform Med Rec) 1 each MISCELLANE ONCE PRN PRN Reason: Consult order Pharmacy Consult (Consult Rx Vancomycin Dosing) 1 each MISCELLANE DAILY PRN PRN Reason: Consult order Sodium Chloride (0.9 % Sodium Chloride Flush 3 Ml Syringe) 3 ml IVFLUSH QSHIFT [facility] Last Admin: 03/29/22 08:07 Dose: 3 ml Trimethoprim/Sulfamethoxazole (Sulfamethox/Trimeth 800/160 Tablet) 1 tab PO MOWEFR [facility] Last Admin: 03/27/22 14:37 Dose: 1 tab Valacyclovir HCl (Valacyclovir Hcl 500 Mg Tablet) 500 mg PO DAILY [facility] Last Admin: 03/29/22 08:07 Dose: 500 mg Vitamin D (Cholecalciferol (Vitamin D3) 25 Mcg Tablet) 50 mcg PO DAILY [facility] Last Admin: 03/29/22 08:07 Dose: 50 mcg Zolpidem Tartrate (Zolpidem Tartrate 5 Mg Tablet) 5 mg PO BEDTIME PRN PRN Reason: Insomnia Last Admin: 03/28/22 19:47 Dose: 5 mg Home Medications Medication Instructions Recorded Confirmed Last Taken Type acetaminophen 500 mg tablet 500 mg PO QID PRN Pain 06/21/20 03/27/22 Unknown History chondroitin sulfate A sodium 400 400 mg PO DAILY 06/21/20 03/27/22 Unknown History mg capsule flaxseed oil 1,000 mg capsule 1,000 mg PO DAILY 06/21/20 03/27/22 Unknown History lactobacillus combination no.4 3 3,000 mmu cells PO DAILY 06/21/20 03/27/22 Unknown History billion cell capsule multivitamin 1 cap PO DAILY 06/21/20 03/27/22 Unknown History elderberry fruit 0.7 gram-honey 3 7.5 ml PO DAILY PRN Fatigue 12/03/20 03/27/22 Unknown History gram/7.5 mL oral liquid tramadol 50 mg tablet 50 mg PO BID PRN Pain 12/03/20 03/27/22 Unknown History glucosamine HCl-sulfate mix 200 1 tab PO DAILY 12/30/20 03/27/22 Unknown History mg-300 mg tablet mecobalamin (vitamin B12) 1,000 1,000 mcg PO DAILY 12/30/20 03/27/22 Unknown History mcg chewable tablet (B12 Active) peg 400-propylene glycol (PF) 0.4 0.4 drp DAILY 12/30/20 03/27/22 Unknown History %-0.3 % eye drops in a dropperette (Systane (PF)) desvenlafaxine succinate 25 mg 25 mg PO DAILY 03/03/21 03/27/22 Unknown History tablet,extended release 24 hr (Pristiq) cholecalciferol (vitamin D3) 50 50 mcg PO DAILY 09/22/21 03/27/22 Unknown History mcg (2,000 unit) capsule aspirin 81 mg tablet,delayed 81 mg PO DAILY 01/19/22 03/27/22 Unknown History release atorvastatin 20 mg tablet 20 mg PO BEDTIME 03/27/22 03/27/22 Unknown History colestipol 1 gram tablet 1 g PO DAILY PRN Constipation 03/27/22 03/27/22 Unknown History sulfamethoxazole 800 1 tab PO MOWEFR 03/27/22 03/27/22 Unknown History mg-trimethoprim 160 mg tablet (Bactrim DS) Physical Exam Vital Signs: Vital Signs: Last Vital Signs Temp 98.2 F 03/29/22 08:00 Pulse 68 03/29/22 10:05 Resp 16 03/29/22 10:05 BP 133/62 03/29/22 08:00 Pulse Ox 95 03/29/22 08:00 O2 Del Method 03/29/22 08:00 O2 Flow Rate 4 03/29/22 08:00 BMI result Body Mass Index 28.3 Const: General: no acute distress and alert Nutritional Appearance: not obese Orientation/consciousness: Other orientation findings ( oriented) HEENT: Head: Yes atraumatic Mouth: no other ( thrush) Throat: No postnasal drainage Eyes: General: appearance normal, both eyes and all related structures Sclerae: sclerae normal EOM: EOMs intact bilaterally Neck: Neck: Yes supple Lymphatic: no lymphadenopathy noted Resp: Effort & Inspection: normal respiratory effort and no use of accessory muscles Auscultation: wheezes expiratory wheezes Cardio: Rate: regular rate Rhythm: regular rhythm Heart sounds: no gallops, no murmurs and no rubs GI: Palpation (GI): Soft to palpation and Other GI palpation findings present ( nontender) Skin: General skin exam: other ( warm) Rashes: no rashes Extrem: General: No clubbing, No cyanosis and No edema Results Laboratory Findings CBC and BMP: 03/29/22 06:41 03/29/22 06:41 Abnormal lab findings: Abnormal Labs 03/27/22 03/27/22 03/27/22 06:39 06:39 07:47 WBC 4.2 L RBC Hgb Hct Plt Count 130 L MPV Immature Gran % (Auto) 0.5 H Neut % (Auto) 83.4 H Lymph % (Auto) 1.7 L Wood % (Auto) 13.0 H Lymph # (Auto) 0.1 L VBG HCO3 BUN Random Glucose 200 H Lactic Acid Lactic Acid F/U @ 2Hr Lactic Acid F/U @ 4Hr Calcium B-Natriuretic Peptide 113 H Total Protein 6.1 L 03/27/22 03/27/22 03/27/22 08:12 10:37 13:27 WBC RBC Hgb Hct Plt Count MPV Immature Gran % (Auto) Neut % (Auto) Lymph % (Auto) Wood % (Auto) Lymph # (Auto) VBG HCO3 BUN Random Glucose Lactic Acid 3.4 H* Lactic Acid F/U @ 2Hr 2.2 H* Lactic Acid F/U @ 4Hr 3.8 H* Calcium B-Natriuretic Peptide Total Protein 03/27/22 03/28/22 03/28/22 21:04 05:17 05:17 WBC 3.6 L RBC 3.97 L Hgb 11.1 L Hct 34.8 L Plt Count 134 L MPV Immature Gran % (Auto) Neut % (Auto) Lymph % (Auto) Wood % (Auto) Lymph # (Auto) VBG HCO3 BUN 17 H Random Glucose 183 H Lactic Acid Lactic Acid F/U @ 2Hr Lactic Acid F/U @ 4Hr Calcium 8.1 L B-Natriuretic Peptide 181 H Total Protein 03/29/22 03/29/22 03/29/22 06:41 06:41 08:54 WBC 2.4 L RBC 3.78 L Hgb 10.6 L Hct 33.2 L Plt Count 121 L MPV 9.3 L Immature Gran % (Auto) Neut % (Auto) Lymph % (Auto) Wood % (Auto) Lymph # (Auto) VBG HCO3 27 H BUN 21 H Random Glucose 151 H Lactic Acid Lactic Acid F/U @ 2Hr Lactic Acid F/U @ 4Hr Calcium 7.9 L B-Natriuretic Peptide Total Protein Microbiology: Microbiology 03/27/22 08:12 Blood - Venous Blood Culture - Preliminary No growth after 48 hours. 03/27/22 07:55 Blood - Venous Blood Culture - Preliminary No growth after 48 hours. Assessment and Plan (1) Acute exacerbation of chronic obstructive pulmonary disease: Status: Acute (2) Pneumonia: Status: Acute Plan Impression: 77-year-old lady with underlying multiple myeloma chemotherapy admitted with community-acquired pneumonia and COPD exacerbation now improving slowly. Recommendations: Agree with current regimen of levofloxacin, systemic glucocorticoids, and nebulized bronchodilators. Continue to titrate off supplemental oxygen as tolerated. Procedures Date of Service Date of Service: 03/29/22
[2022-03-29] MEDS: Sulfamethox/Trimeth 800/160 TABLET 1 TAB PO (12:21)
[2022-03-29 13:48] LABS: Vancomycin Random 4.3 mcg/mL (15-20)
--- NOTE | 2022-03-29 14:08 | HE.PHANOTE ---
Vancomycin Addendum Vancomycin random level was 4.3 today. Typically patient's older than 65 are started on Q24H dosing. Since patient is septic with %IBW > 130% will adjust patient dose to be Q12H. Vancomycin 1000 mg Q12H to start 03/29 @ 1500. Expected AUC 547. Random level to be drawn after 2 dose to evaluate for safety. Yee Perez, AbdirahmanD
[2022-03-29] MEDS: vancomycin HCL 1,000 MG in 0.9 % Sodium Chloride 250 ML 270 MG IV (14:25)
--- NOTE | 2022-03-29 14:35 | P.PNIM_ITS ---
Subjective Subjective Date of Service: 03/29/22 Interval History: acute hypoxemic respiratory failure secondary to COPD exacerbation and pneumonia. Review of Systems Patient is still talking in broken sentences, has aggressive cough, seem anxious. Physical Exam Vital Signs: Vital Signs: Last Vital Signs Temp 98.2 F 03/29/22 11:47 Pulse 71 03/29/22 12:23 Resp 18 03/29/22 12:23 BP 107/55 L 03/29/22 11:47 Pulse Ox 94 03/29/22 11:47 O2 Del Method 03/29/22 11:47 O2 Flow Rate 4 03/29/22 11:47 BMI result Body Mass Index 28.3 Appearance: Alert.? Oriented X3.? talking in short sentences .? Eyes: Pupils equal, round and reactive to light.? Sclera nonicteric.? ENT: Pharynx normal.? Moist mucous membranes. cvs: rrr, [id number] . res: b/l wheezing abd: no rebound or guarding ,nt, bs present. ext pulses present , no cyanosis . neuro: axo3 , nonfocal.generlaised weak Objective Data Active Medications Acetaminophen (Acetaminophen 325 Mg Tablet) 650 mg PO Q6H PRN PRN Reason: Pain, Mild (Pain Scale 1-3) Last Admin: 03/28/22 19:47 Dose: 650 mg Documented By: FABIO Aspirin (Aspirin Enteric Coated 81 Mg Tablet.) 81 mg PO DAILY [facility] Last Admin: 03/29/22 08:07 Dose: 81 mg Documented By: MOODY Atorvastatin Calcium (Atorvastatin Calcium 20 Mg Tablet) 20 mg PO BEDTIME [facility] Last Admin: 03/28/22 19:47 Dose: 20 mg Documented By: FABIO Enoxaparin Sodium (Enoxaparin Sodium 40 Mg/0.4 Ml Syringe) 40 mg SUBCUT Q24H [facility] Last Admin: 03/29/22 08:06 Dose: 40 mg Documented By: MOODY Guaifenesin (Guaifenesin 100 Mg/5 Ml Liquid) 5 ml PO Q6H [facility] Last Admin: 03/29/22 12:18 Dose: 5 ml Documented By: MOODY Levofloxacin (Levaquin) 750 mg in 150 mls @ 100 mls/hr IV Q24H [facility] Vancomycin HCl 1,000 mg/ (Sodium Chloride) 270 mls @ 270 mls/hr IV Q12H [facility] Last Admin: 03/29/22 14:25 Dose: 270 mls/hr Documented By: MOODY Ipratropium [place] (Ipratropium [place] 0.5 Mg/2.5 Ml Solution) 0.5 mg INHALE RQ4H WHILE AWAKE [facility] Last Admin: 03/29/22 12:20 Dose: 0.5 mg Documented By: JAMES Levalbuterol HCl (Levalbuterol Hcl 1.25 Mg/0.5 Ml Vial.Neb) 1.25 mg INHALE RQ4H WHILE AWAKE [facility] Last Admin: 03/29/22 12:20 Dose: 1.25 mg Documented By: JAMES Levalbuterol HCl (Levalbuterol Hcl 1.25 Mg/0.5 Ml Vial.Neb) 1.25 mg INHALE Q3H PRN PRN Reason: Wheezing Last Admin: 03/29/22 04:46 Dose: 1.25 mg Documented By: ELISE Lorazepam (Lorazepam 0.5 Mg Tablet) 0.5 mg PO BID PRN PRN Reason: Anxiety Last Admin: 03/29/22 08:07 Dose: 0.5 mg Documented By: MOODY Methylprednisolone Sodium Succinate (Methylprednisolone Sod Succ 125 Mg/2 Ml Vial) 60 mg IVPUSH Q8H [facility] Last Admin: 03/29/22 12:17 Dose: 60 mg Documented By: MOODY Metoprolol Succinate (Metoprolol Succinate Er 50 Mg Tab.Er.24h) 50 mg PO DAILY [facility]; Protocol Last Admin: 03/29/22 08:07 Dose: 50 mg Documented By: MOODY Pt Own ( Desvenlafaxine Succinate [Pristiq] 25 Mg Tablet Extended Release 25 mg PO DAILY [facility] Last Admin: 03/29/22 08:07 Dose: 25 mg Documented By: MOODY Omeprazole (Omeprazole 20 Mg Capsule.Dr) 20 mg PO BID [facility] Last Admin: 03/29/22 12:18 Dose: 20 mg Documented By: MOODY Ondansetron HCl (Ondansetron Hcl 4 Mg/2 Ml Vial) 4 mg IVPUSH Q8H PRN PRN Reason: Nausea and Vomiting Last Admin: 03/29/22 04:32 Dose: 4 mg Documented By: FABIO Pharmacy Consult (Consult Rx Perform Med Rec) 1 each MISCELLANE ONCE PRN PRN Reason: Consult order Pharmacy Consult (Consult Rx Vancomycin Dosing) 1 each MISCELLANE DAILY PRN PRN Reason: Consult order Sodium Chloride (0.9 % Sodium Chloride Flush 3 Ml Syringe) 3 ml IVFLUSH QSHIFT [facility] Last Admin: 03/29/22 08:07 Dose: 3 ml Documented By: MOODY Trimethoprim/Sulfamethoxazole (Sulfamethox/Trimeth 800/160 Tablet) 1 tab PO MOWEFR [facility] Last Admin: 03/29/22 12:21 Dose: 1 tab Documented By: MOODY Valacyclovir HCl (Valacyclovir Hcl 500 Mg Tablet) 500 mg PO DAILY [facility] Last Admin: 03/29/22 08:07 Dose: 500 mg Documented By: MOODY Vitamin D (Cholecalciferol (Vitamin D3) 25 Mcg Tablet) 50 mcg PO DAILY [facility] Last Admin: 03/29/22 08:07 Dose: 50 mcg Documented By: MOODY Zolpidem Tartrate (Zolpidem Tartrate 5 Mg Tablet) 5 mg PO BEDTIME PRN PRN Reason: Insomnia Last Admin: 03/28/22 19:47 Dose: 5 mg Documented By: FABIO Labs CBC & Chem 7: 03/29/22 06:41 03/29/22 06:41 Labs: Laboratory Results - last 24 hr 03/29/22 03/29/22 03/29/22 06:41 06:41 08:54 MCV 87.8 MCH 28.0 MCHC 31.9 RDW 14.6 Plt Count 121 L MPV 9.3 L Absolute Nucleated RBC 0.000 Nucleated RBC % (auto) 0.0 Smear Path Review SEE NOTE VBG pH 7.36 VBG pCO2 47 VBG pO2 44 VBG HCO3 27 H VBG O2 Saturation 71.0 VBG Base Excess 1.4 Anion Gap 14 Estim Creat Clear Calc 59.8 Estimated GFR > 60 Random Glucose 151 H Calcium 7.9 L Random Vancomycin 03/29/22 11:56 MCV MCH MCHC RDW Plt Count MPV Absolute Nucleated RBC Nucleated RBC % (auto) Smear Path Review VBG pH VBG pCO2 VBG pO2 VBG HCO3 VBG O2 Saturation VBG Base Excess Anion Gap Estim Creat Clear Calc Estimated GFR Random Glucose Calcium Random Vancomycin 4.3 L Microbiology Microbiology Results: Microbiology 03/27/22 08:12 Blood Culture - Preliminary Blood - Venous No growth after 48 hours. 03/27/22 07:55 Blood Culture - Preliminary Blood - Venous No growth after 48 hours. Assessment and Plan (1) Acute exacerbation of chronic obstructive pulmonary disease: Status: Acute (2) Pneumonia: Status: Acute Plan 77 year old F with a PMH of diastolic CHF, COPD not on home O2, Multiple myeloma undergoing chemo, HTN, HLD who presents to the ED with compalints of shortness of breath and a productive cough of 1 weeks duration. Her presentation and work up are consistent with pneumonia. 1. Severe sepsis due to pneumonia sob and cough similar to yesterday still has leucopenia, intermittent tachypnea blood cultures prelim @48hrs, nasal mrsa neg lactic acidosis possible related to nebs. Given active chemo treatment, continue levaquin , dc vanco since nasal mrsa neg pulm saw the patient -vbg noted , continue Levaquin nebs and steroids. 2. COPD exacerbation due to above. IV solu-medrol and scheduled + PRN nebulized bronchodilators 3. HTN hold antihypertensives today 4.Chronic? HFpEF per last echo in February 2022, clinically not in overload not in diuretics, use IVF judiciously 5. Multiple myeloma continue her baseline prophylactic meds inpatient need: copd excerebation/sepsis /pneumonia -needs iv antiobiotics and steriods. is HCP Quality Stroke Does the patient have a stroke diagnosis?: No VTE Prior VTE?: No VTE Risk Level:: Medical - moderate - high VTE Device Contraindication: Treatment Not Indicated VTE Drug Contraindication: N/A - Med Ordered
--- NOTE | 2022-03-29 15:11 | MHC.CM.PN ---
[facility] UPDATED IN [facility] NO PLAN FOR DC TODAY
[2022-03-29] MEDS: Acetaminophen 325 MG TABLET 650 MG PO (20:13)
[2022-03-29] MEDS: Atorvastatin Calcium 20 MG TABLET PO (20:13)
[2022-03-30] VITALS (12 sets, daily range): BP systolic 118–158; BP diastolic 51–67; PULSE 63–76; RESP 14–20; TEMP 36.1–37.1; O2SAT 92–96
[2022-03-30] MEDS: vancomycin HCL 1,000 MG in 0.9 % Sodium Chloride 250 ML 270 MG IV (02:59)
[2022-03-30] MEDS: methylPREDNISolone Sod Succ 125 MG/2 ML VIAL 60 MG IVPUSH ×2 (05:31→12:51)
[2022-03-30] MEDS: guaiFENesin 100 MG/5 ML LIQUID PO ×4 (05:32→23:48)
[2022-03-30 06:09] LABS: Anion Gap 10 (12-20); Blood Urea Nitrogen 23 mg/dL (9-16); Calcium 7.9 mg/dL (8.4-10.2); Carbon Dioxide 26 mmol/L (22-29); Chloride 105 mmol/L (96-108); Creatinine Clr Calc Pharmacy 55.3; Estimated Glomerular Filt Rate > 60; Glucose Random 166 mg/dL (60-115); Sodium 136 mmol/L (135-145)
[2022-03-30] MEDS: Aspirin Enteric Coated 81 MG TABLET.DR PO (08:02)
[2022-03-30] MEDS: 0.9 % Sodium Chloride Flush 3 ML SYRINGE IVFLUSH ×3 (08:02→23:49)
[2022-03-30] MEDS: Omeprazole 20 MG CAPSULE.DR PO ×2 (08:02→20:01)
[2022-03-30] MEDS: Enoxaparin Sodium 40 MG/0.4 ML SYRINGE SUBCUT (08:02)
[2022-03-30] MEDS: Cholecalciferol (Vitamin D3) 25 MCG TABLET 50 MCG PO (08:02)
[2022-03-30] MEDS: Acetaminophen 325 MG TABLET 650 MG PO ×2 (08:02→20:07)
[2022-03-30] MEDS: levoFLOXacin/D5W 750 MG/150 ML PIGGYBACK 100 MG IV (08:03)
[2022-03-30] MEDS: valACYclovir HCL 500 MG TABLET PO (08:03)
[2022-03-30] MEDS: Metoprolol Succinate ER 50 MG TAB.ER.24H PO (08:03)
[2022-03-30] MEDS: Ipratropium Bromide 0.5 MG/2.5 ML SOLUTION INHALE ×4 (08:18→20:23)
[2022-03-30] MEDS: LORazepam 0.5 MG TABLET PO ×2 (10:14→20:01)
[2022-03-30] MEDS: DESVENLAFAXINE SUCCINATE 25 MG 25 EACH PO (10:14)
--- NOTE | 2022-03-30 10:25 | MHC.CM.PN ---
REFERRAL TO [facility] TO REQUEST RN AND P.T. SKILLS PLAN IS DC Sunday03/31/22
--- NOTE | 2022-03-30 13:22 | P.PNIM_ITS ---
Subjective Subjective Date of Service: 03/30/22 Interval History: copd excerebation/pneumonia Review of Systems still sob with minimal excersion, has cough, no fevers Physical Exam Vital Signs: Vital Signs: Last Vital Signs Temp 97.2 F 03/30/22 11:55 Pulse 64 03/30/22 12:00 Resp 18 03/30/22 12:00 BP 122/58 L 03/30/22 11:55 Pulse Ox 96 03/30/22 11:55 O2 Del Method 03/30/22 11:55 O2 Flow Rate 0.4 03/30/22 11:55 BMI result Body Mass Index 28.3 Appearance: Alert.? Oriented X3.? talking in short sentences .? Eyes: Pupils equal, round and reactive to light.? Sclera nonicteric.? ENT: Pharynx normal.? Moist mucous membranes. cvs: rrr, [id number] . res: b/l wheezing abd: no rebound or guarding ,nt, bs present. ext pulses present , no cyanosis . neuro: axo3 , nonfocal.generlaised weak Objective Data Active Medications Acetaminophen (Acetaminophen 325 Mg Tablet) 650 mg PO Q6H PRN PRN Reason: Pain, Mild (Pain Scale 1-3) Last Admin: 03/30/22 08:02 Dose: 650 mg Documented By: MARY Aspirin (Aspirin Enteric Coated 81 Mg Tablet.) 81 mg PO DAILY [facility] Last Admin: 03/30/22 08:02 Dose: 81 mg Documented By: MARY Atorvastatin Calcium (Atorvastatin Calcium 20 Mg Tablet) 20 mg PO BEDTIME [facility] Last Admin: 03/29/22 20:13 Dose: 20 mg Documented By: NEO Enoxaparin Sodium (Enoxaparin Sodium 40 Mg/0.4 Ml Syringe) 40 mg SUBCUT Q24H [facility] Last Admin: 03/30/22 08:02 Dose: 40 mg Documented By: MARY Guaifenesin (Guaifenesin 100 Mg/5 Ml Liquid) 5 ml PO Q6H [facility] Last Admin: 03/30/22 12:51 Dose: 5 ml Documented By: MARY Levofloxacin (Levaquin) 750 mg in 150 mls @ 100 mls/hr IV Q24H [facility] Last Infusion: 03/30/22 10:50 Dose: 0 mls/hr Documented By: MARY Vancomycin HCl 1,000 mg/ (Sodium Chloride) 270 mls @ 270 mls/hr IV Q12H [facility] Last Infusion: 03/30/22 03:59 Dose: 0 mls/hr Documented By: NEO Ipratropium [place] (Ipratropium [place] 0.5 Mg/2.5 Ml Solution) 0.5 mg INHALE RQ4H WHILE AWAKE [facility] Last Admin: 03/30/22 12:00 Dose: 0.5 mg Documented By: DIANNE Levalbuterol HCl (Levalbuterol Hcl 1.25 Mg/0.5 Ml Vial.Neb) 1.25 mg INHALE RQ4H WHILE AWAKE [facility] Last Admin: 03/30/22 12:00 Dose: 1.25 mg Documented By: DIANNE Levalbuterol HCl (Levalbuterol Hcl 1.25 Mg/0.5 Ml Vial.Neb) 1.25 mg INHALE Q3H PRN PRN Reason: Wheezing Last Admin: 03/29/22 04:46 Dose: 1.25 mg Documented By: ELISE Lorazepam (Lorazepam 0.5 Mg Tablet) 0.5 mg PO BID PRN PRN Reason: Anxiety Last Admin: 03/30/22 10:14 Dose: 0.5 mg Documented By: MARY Methylprednisolone Sodium Succinate (Methylprednisolone Sod Succ 125 Mg/2 Ml Vial) 60 mg IVPUSH Q8H [facility] Last Admin: 03/30/22 12:51 Dose: 60 mg Documented By: MARY Metoprolol Succinate (Metoprolol Succinate Er 50 Mg Tab.Er.24h) 50 mg PO DAILY [facility]; Protocol Last Admin: 03/30/22 08:03 Dose: 50 mg Documented By: MARY Pt Own ( Desvenlafaxine Succinate [Pristiq] 25 Mg Tablet Extended Release 25 mg PO DAILY [facility] Last Admin: 03/30/22 10:14 Dose: 25 mg Documented By: MARY Omeprazole (Omeprazole 20 Mg Capsule.Dr) 20 mg PO BID [facility] Last Admin: 03/30/22 08:02 Dose: 20 mg Documented By: MARY Ondansetron HCl (Ondansetron Hcl 4 Mg/2 Ml Vial) 4 mg IVPUSH Q8H PRN PRN Reason: Nausea and Vomiting Last Admin: 03/29/22 04:32 Dose: 4 mg Documented By: FABIO Pharmacy Consult (Consult Rx Perform Med Rec) 1 each MISCELLANE ONCE PRN PRN Reason: Consult order Pharmacy Consult (Consult Rx Vancomycin Dosing) 1 each MISCELLANE DAILY PRN PRN Reason: Consult order Sodium Chloride (0.9 % Sodium Chloride Flush 3 Ml Syringe) 3 ml IVFLUSH QSHIFT [facility] Last Admin: 03/30/22 08:02 Dose: 3 ml Documented By: MARY Trimethoprim/Sulfamethoxazole (Sulfamethox/Trimeth 800/160 Tablet) 1 tab PO MOWEFR [facility] Last Admin: 03/29/22 12:21 Dose: 1 tab Documented By: MOODY Valacyclovir HCl (Valacyclovir Hcl 500 Mg Tablet) 500 mg PO DAILY [facility] Last Admin: 03/30/22 08:03 Dose: 500 mg Documented By: MARY Vitamin D (Cholecalciferol (Vitamin D3) 25 Mcg Tablet) 50 mcg PO DAILY [facility] Last Admin: 03/30/22 08:02 Dose: 50 mcg Documented By: MARY Zolpidem Tartrate (Zolpidem Tartrate 5 Mg Tablet) 5 mg PO BEDTIME PRN PRN Reason: Insomnia Last Admin: 03/28/22 19:47 Dose: 5 mg Documented By: FABIO Labs CBC & Chem 7: 03/29/22 06:41 03/30/22 05:25 Labs: Laboratory Results - last 24 hr 03/29/22 03/30/22 11:56 05:25 Anion Gap 10 L Estim Creat Clear Calc 55.3 Estimated GFR > 60 Random Glucose 166 H Calcium 7.9 L Random Vancomycin 4.3 L Microbiology Microbiology Results: Microbiology 03/27/22 08:12 Blood Culture - Preliminary Blood - Venous No growth after 48 hours. 03/27/22 07:55 Blood Culture - Preliminary Blood - Venous No growth after 48 hours. Assessment and Plan (1) Acute exacerbation of chronic obstructive pulmonary disease: Status: Acute (2) Pneumonia: Status: Acute Plan 77 year old F with a PMH of diastolic CHF, COPD not on home O2, Multiple myeloma undergoing chemo, HTN, HLD who presents to the ED with compalints of shortness of breath and a productive cough of 1 weeks duration. Her presentation and work up are consistent with pneumonia. 1. Severe sepsis due to pneumonia sob and cough similar to yesterday still has leucopenia, intermittent tachypnea blood cultures prelim @48hrs, nasal mrsa neg lactic acidosis possible related to nebs. Given active chemo treatment, continue levaquin , dc vanco since nasal mrsa neg pulm saw the patient -vbg noted , continue Levaquin nebs and steroids. 2. COPD exacerbation due to above. IV solu-medrol and scheduled + PRN nebulized bronchodilators 3. HTN hold antihypertensives today 4.Chronic? HFpEF per last echo in February 2022, clinically not in overload not in diuretics, use IVF judiciously 5. Multiple myeloma continue her baseline prophylactic meds inpatient need: copd excerebation/sepsis /pneumonia -needs iv antiobiotics and steriods. is HCP Quality Stroke Does the patient have a stroke diagnosis?: No VTE Prior VTE?: No VTE Risk Level:: Medical - moderate - high VTE Device Contraindication: Treatment Not Indicated VTE Drug Contraindication: N/A - Med Ordered
[2022-03-30 13:32] LABS: Vancomycin Random 9.2 mcg/mL (15-20)
[2022-03-30] MEDS: Atorvastatin Calcium 20 MG TABLET PO (20:01)
[2022-03-30] MEDS: Zolpidem Tartrate 5 MG TABLET PO (23:51)
[2022-03-31 03:46] VITALS: BP 153/67; PULSE 86; RESP 17; TEMP 36.3; O2SAT 95
[2022-03-31] MEDS: guaiFENesin 100 MG/5 ML LIQUID PO ×2 (06:29→12:12)
[2022-03-31] MEDS: Acetaminophen 325 MG TABLET 650 MG PO (06:29)
[2022-03-31 07:38] VITALS: BP 143/67; PULSE 71; RESP 20; TEMP 36.1; O2SAT 97
[2022-03-31] MEDS: Ipratropium Bromide 0.5 MG/2.5 ML SOLUTION INHALE ×2 (08:01→12:46)
[2022-03-31 08:02] VITALS: PULSE 71; RESP 20; O2SAT 94
[2022-03-31] MEDS: 0.9 % Sodium Chloride Flush 3 ML SYRINGE IVFLUSH (08:04)
[2022-03-31] MEDS: Metoprolol Succinate ER 50 MG TAB.ER.24H PO (08:05)
[2022-03-31] MEDS: Enoxaparin Sodium 40 MG/0.4 ML SYRINGE SUBCUT (08:05)
[2022-03-31] MEDS: DESVENLAFAXINE SUCCINATE 25 MG 25 EACH PO (08:05)
[2022-03-31] MEDS: valACYclovir HCL 500 MG TABLET PO (08:06)
[2022-03-31] MEDS: Sulfamethox/Trimeth 800/160 TABLET 1 TAB PO (08:06)
[2022-03-31] MEDS: Cholecalciferol (Vitamin D3) 25 MCG TABLET 50 MCG PO (08:06)
[2022-03-31] MEDS: Aspirin Enteric Coated 81 MG TABLET.DR PO (08:06)
[2022-03-31] MEDS: Omeprazole 20 MG CAPSULE.DR PO (08:06)
[2022-03-31] MEDS: LORazepam 0.5 MG TABLET PO (08:06)
[2022-03-31] MEDS: levoFLOXacin/D5W 750 MG/150 ML PIGGYBACK 100 MG IV (08:15)
[2022-03-31 11:16] VITALS: BP 127/63; PULSE 83; RESP 20; TEMP 36.3; O2SAT 94
[2022-03-31] MEDS: methylPREDNISolone Sod Succ 125 MG/2 ML VIAL 40 MG IVPUSH (12:08)
--- NOTE | 2022-03-31 12:35 | MHC.CM.PN ---
PT WILL DC HOME TODAY WITH NEW OXYGEN TO BE ARRANGED BY RT. [facility] WILL PROVIDED [facility] PT WILL ARRANGE TRANSPORTATION
[2022-03-31 12:48] VITALS: PULSE 76; PULSE 81; PULSE 88; PULSE 98; RESP 18; O2SAT 87; O2SAT 92; O2SAT 93
--- NOTE | 2022-03-31 13:42 | P.DS_ITS ---
DS: Providers Provider Date of Service: 03/31/22 Date of admission: 03/27/22 09:04 Primary care physician: Markos James MD Consults: 03/28/22 17:43 Consult to Pulmonology Routine Consulting Provider: [facility] Reason for consultation: Acute hypoxemic respiratory drip failure- secondary to COPD/ pneumonia. DS: Diagnosis Discharge Diagnosis (1) Acute exacerbation of chronic obstructive pulmonary disease: Status: Acute (2) Pneumonia: Status: Acute (3) Sepsis: Status: Acute DS: Summary Hospital Course Hospital Course: 77 year old F with a PMH of diastolic CHF, COPD not on home O2, Multiple myeloma undergoing chemo, HTN, HLD who presents to the ED with compalints of shortness of breath and a productive cough of 1 weeks duration. The patient reports that her SOB was initially with exertion, but now she can barely take a few steps without getting fatigued and short of breath. She appears to be short of breath with a brief conversation. She reports feeling feverish at home, but no measured temps. She reports her cough is productive of greenish sputum. She reports loss of appetite and poor oral intake. 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 Upon arrival to the ED, the patient was noted to be in respiratory distress with tachypnea and tachycardia. Her oxygen saturation 90% on RA with RR in the high 20/low 30s, She was febrile and tachycardic. CXR showed possible? R basilar opacities. She was given IVF, IV levaquin, IV steroids and nebulized bronchodialtors. She has not improved and hence, will be admitted for further care. Hospital course: patient was admitted because of COPD exacerbation,sepsis sec to pneumonia and seen by Pulmonary-patient was started on IV antibiotic and steroids as well as added nebs- patient responded well to above management and seems to be improved significantly, blood cultures negative 48hours , no fevers : Patient is going home with p.o. steroids and antibiotics. Patient also qualified for home oxygen so patient will go home with home oxygen. Please repeat chest imaging study in 3-4 week with PCP outpatient need to see resolution of pneumonia. patient's imaging studies discussed with patient's primary pulmonary and Oncology- patient is to follow-up out patiently with Pulmonary and Oncology patient is aware of that. plan: Complete course of antibiotic and steroids, follow-up with her pulmonary and Oncology out patiently. Repeat chest imaging in 3-4 week. Above management discussed with the patient in detail length he understand and in agreement with the above plan, time spent 50 minutes and 50% time spent on counseling. Significant findings: As above. Procedures performed: None. Treatment and response: As above. Complications: None. Time Spent with Patient Time attestation: Total time spent providing and/or coordinating discharge services: Discharge coordination time: Greater than 30 minutes Quality: Safe Use of Opioids Does Pt have an Active Cancer Diagnosis on the Problem List?: No Quality: Stroke Does the patient have a stroke diagnosis?: No Physical Exam Vital Signs: Vital Signs: Last Vital Signs Temp 97.4 F 03/31/22 11:16 Pulse 76 03/31/22 12:48 Resp 18 03/31/22 12:48 BP 127/63 03/31/22 11:16 Pulse Ox 94 03/31/22 11:16 O2 Del Method 03/31/22 11:16 O2 Flow Rate 2 03/31/22 11:16 BMI result Body Mass Index 28.3 ?Appearance: Alert.? Oriented X3.? ? Eyes: Pupils equal, round and reactive to light.? Sclera nonicteric.? ENT: Pharynx normal.? Moist mucous membranes. cvs: rrr, [id number] . res: fair air entry ,no rales or wheezing abd: no rebound or guarding ,nt, bs present. ext pulses present , no cyanosis . neuro: axo3 , nonfocal.generlaised weak DS: Data Data Completed and Pending Labs on day of discharge: Preliminary micro results at discharge 03/27/22 08:12 Blood Culture - Preliminary Blood - Venous No growth after 48 hours. 03/27/22 07:55 Blood Culture - Preliminary Blood - Venous No growth after 48 hours. Additional Comments Additional comments: Laboratory Results - last 24 hr ? 03/29/22 03/30/22 ? 11:56 05:25 Anion Gap ? ?10 L Estim Creat Clear Calc ? ?55.3 Estimated GFR ? ?> 60 Random Glucose ? ?166 H Calcium ? ?7.9 L Random Vancomycin ?4.3 L ? XR/XR chest 1V IMPRESSION: Mild heterogeneous right basilar opacity may be due to atelectasis versus developing consolidation in the proper clinical setting. Discharge Plan Discharge Patient Disposition: Home Health Service Discharge Diagnosis: copd excerebation/pneumonia Referrals: [facility] [Outside] - 3-5 Days Po,Markos Hinson MD [Primary Care Provider] - 1 Week Discharge Medications: New guaifenesin 100 mg/5 mL Liquid 5 ml PO Q6H Qty: 60 0RF levofloxacin 500 mg tablet 500 mg PO DAILY Qty: 4 0RF prednisone 20 mg tablet 40 mg PO DAILY Qty: 10 0RF Continued losartan [Cozaar] 100 mg tablet 100 mg PO DAILY Qty: 90 3RF metoprolol succinate [Toprol XL] 50 mg tablet extended release 24 hr 50 mg PO DAILY Qty: 90 3RF amlodipine 5 mg tablet 5 mg PO DAILY Qty: 90 3RF methylprednisolone 4 mg Tablet 4 mg PO DAILY Qty: 100 5RF Rx Instructions: Take 5 tablets of 4 mg each on days 2 and 3 of chemotherapy. As directed. meloxicam 15 mg tablet 15 mg PO DAILY Qty: 90 3RF promethazine-codeine 6.25-10 mg/5 mL syrup 5 ml PO Q4-6H PRN (Reason: severe cough) 14 Days Qty: 118 2RF acetaminophen 500 mg Tablet 500 mg PO QID PRN (Reason: Pain) flaxseed oil 1,000 mg Capsule 1,000 mg PO DAILY chondroitin sulfate A sodium 400 mg Capsule 400 mg PO DAILY multivitamin Capsule 1 cap PO DAILY lactobacillus combination no.4 3 billion cell Capsule 3,000 mmu cells PO DAILY elderberry fruit-honey 0.7-3 gram/7.5 mL liquid 7.5 ml PO DAILY PRN (Reason: Fatigue) Glucosamine Complex 200-300 mg Tablet 1 tab PO DAILY B12 Active 1,000 mcg Tablet,Chewable 1,000 mcg PO DAILY Systane (PF) 0.4-0.3 % Dropperette 0.4 drp DAILY pantoprazole [Protonix] 40 mg tablet,delayed release (DR/EC) 1 tab PO DAILY Qty: 90 3RF valacyclovir [Valtrex] 500 mg Tablet 500 mg PO DAILY Qty: 90 3RF lorazepam 0.5 mg Tablet 0.5 mg PO BID PRN (Reason: Anxiety) Qty: 50 2RF pomalidomide 3 mg Capsule 3 mg PO DAILY Qty: 21 6RF Rx Instructions: Take 3 mg days 1-21, Q 28 days. authorization [id number] atorvastatin 20 mg tablet 20 mg PO BEDTIME sulfamethoxazole-trimethoprim [Bactrim DS] 800-160 mg tablet 1 tab PO MOWEFR colestipol 1 gram Tablet 1 g PO DAILY PRN (Reason: Constipation) desvenlafaxine succinate [Pristiq] 25 mg tablet extended release 24 hr 25 mg PO DAILY tramadol 50 mg tablet 50 mg PO BID PRN (Reason: Pain) albuterol sulfate [Ventolin HFA] 90 mcg/actuation HFA aerosol inhaler 2 puff inhalation Q4-6H PRN (Reason: shortness of breath or wheezing) 30 Days Qty: 8.5 5RF aspirin 81 mg tablet,delayed release (DR/EC) 81 mg PO DAILY cholecalciferol (vitamin D3) 50 mcg (2,000 unit) capsule 50 mcg PO DAILY budesonide-formoterol [Symbicort] 160-4.5 mcg/actuation HFA aerosol inhaler 2 puff inhalation BID Qty: 10.2 3RF Discharge Orders: Discharge Order (Routine); Ordered 03/31/22 Ordered By: Caio Antonio Diet: Advance to usual diet Activity on Discharge: As tolerated Stand Alone Forms: Patient Portal Discharge page Care Plan Goals: patient was admitted because of COPD exacerbation and pneumonia and seen by Pulmonary-patient was started on IV antibiotic and steroids as well as added nebs- patient responded well to above management and seems to be improved significantly: Patient is going home with p.o. steroids and antibiotics. Patient also qualified for home oxygen so patient will go home with home oxygen. Please repeat chest imaging study in 3-4 week with PCP outpatient need to see resolution of pneumonia. patient's imaging studies discussed with patient's primary pulmonary and Oncology- patient is to follow-up out patiently with Pulmonary and Oncology patient is aware of that. Health Concerns: If shortness of breath worsening or any fever or any new symptoms patient is to go to nearest emergency room for evaluation. Plan of Treatment: Complete course of antibiotic and steroids, follow-up with her pulmonary and Oncology out patiently. Repeat chest imaging in 3-4 week. Assessment: as above.
--- NOTE | 2022-03-31 13:50 | P.F2F_ITS ---
Service Date Service Date: 03/31/22 Encounter Date of encounter: 03/31/22 Encounter: COPD exacerbation, pneumonia Reasons for Services Signs and symptoms assessed: shortness of breath, cough. Reason for penitentiary: medication management, medication treatment and teach disease management MD Overseeing Care: Markos James Homebound: Leaving the home is medically contraindicated at this time without the asist of a device and/or another person due th the listed conditions above and below. Reason homebound: weakness related to hospital stay Homebound supporting statement: Patient has multiple comorbidities including COPD and pneumonia, generalized weak post hospitalization stay ,need help to go to appointments also. Certification: Based on the above findings, I certify that this patient is confined to the home and needs intermittent penitentiary care, physical therapy and/or speech therapy, or continues to need occupational therapy. The patient is under my care, and I have initiated the establishment of the plan of care. The patient will be followed by a physician who will periodically review the plan of care.
[2022-04-01 23:26] LABS: Cyclosporine <25 mcg/L (100-300)
[2022-04-03 13:01] LABS: Mycophenolic Acid Glucuronide <10.0 mcg/mL (35.0-100.0)
== END 2022-03-31 15:01 | disposition home health service (06) | DRG 871 ==
LOC: HO.ED 07:12 → HO.EDOVER 09:21 → HO.S3 16:49
PROVIDERS: Internal Medicine; Admitting Provider Family Medicine; Emergency Provider Emergency Medicine; PCP Internal Medicine; Visit Provider Internal Medicine
DX: A41.9 Sepsis, unspecified organism (principal); J18.9 Pneumonia, unspecified organism; J96.01 Acute respiratory failure with hypoxia; J44.0 Chronic obstructive pulmonary disease with (acute) lower respiratory infection; J44.1 Chronic obstructive pulmonary disease with (acute) exacerbation; I50.32 Chronic diastolic (congestive) heart failure; C90.00 Multiple myeloma not having achieved remission; D84.821 Immunodeficiency due to drugs; I11.0 Hypertensive heart disease with heart failure; Z20.822 Contact with and (suspected) exposure to COVID-19; Z87.891 Personal history of nicotine dependence; Z88.1 Allergy status to other antibiotic agents; Z88.5 Allergy status to narcotic agent; Z79.52 Long term (current) use of systemic steroids; Z79.82 Long term (current) use of aspirin; Z79.899 Other long term (current) drug therapy
CPT/HCPCS: 36415; 71045; 80048; 80076; 80158; 80180; 80202; 82803; 83605; 83880; 84484; 85025; 85027; 87040; 87502; 87635; 87640; 87641; 93005; 94640; 94644; 96361; 96365; 96375; 97162; 99285; J1650; J1940; J1956; J2405; J2920; J2930; J3370; J3475

== ENCOUNTER → 2022-04-20 09:46 | Outpatient (BNVA) | payer MEDICARE, SELFPAY | PROVIDERS: PCP Internal Medicine; Visit Provider Internal Medicine Gastroenterology | DX: K80.20 Calculus of gallbladder without cholecystitis without obstruction (principal); K52.9 Noninfective gastroenteritis and colitis, unspecified; K21.9 Gastro-esophageal reflux disease without esophagitis; E78.00 Pure hypercholesterolemia, unspecified | CPT/HCPCS: 99212 ==

== ENCOUNTER 2022-04-27 14:03 | Outpatient (REF) | payer MEDICARE, SELFPAY ==
--- NOTE | ~2022-04-27 | XR_ITS ---
EXAMINATION: XR CHEST CLINICAL INFORMATION: Pneumonia COMPARISON: Previous chest x-ray most recent March 2022 TECHNIQUE: 2 views of the chest were obtained. FINDINGS: The cardiac and mediastinal contours are stable. There is interval improvement in the right base pneumonia. The lungs are otherwise clear. There is no pleural effusion or pneumothorax. There are degenerative changes of the spine and shoulders. There is an old right posterior eighth rib fracture that appears unchanged. There is a large lytic lesion in the inferior left scapula that appears unchanged. There are are surgical anchors in the left proximal humerus. XR/XR chest 2V IMPRESSION: Improved right base pneumonia.
--- NOTE | ~2022-04-27 | XR_ITS ---
EXAMINATION: RIGHT WRIST X-RAY CLINICAL INFORMATION: Pain COMPARISON: None TECHNIQUE: 4 views of the right wrist FINDINGS: No fracture or dislocation is seen. There is arthritis at the trapezoid trapezium scaphoid joints, first HALF-WAY joint and capitate lunate joints. There is widening of the scapholunate joint. There is soft tissue calcification in the triangular fibrocartilage complex. XR/XR wrist RT w scaphoid IMPRESSION: Arthritis at the first HALF-WAY, trapezoid trapezium scaphoid and capitate lunate joints. Widened scapholunate joint. Degenerative calcification in the triangular fibrocartilage complex.
== END 2022-04-27 14:04 | disposition home or self-care (01) ==
LOC: HO.XRAY 14:03
PROVIDERS: PCP Internal Medicine; Visit Provider Nurse Practitioner Family
DX: J18.9 Pneumonia, unspecified organism (principal); M25.531 Pain in right wrist
CPT/HCPCS: 71046; 73110

== ENCOUNTER 2022-05-02 07:39 | Outpatient (REF) | payer MEDICARE, SELFPAY ==
[2022-05-02 11:24] LABS: MANUAL DIFF FLAG NO
[2022-05-02 11:40] LABS: Basophils Absolute Auto 0.1 X10*3/uL (0.0-0.2); Eosinophils Absolute Auto 0.1 X10*3/uL (0.0-0.4); Eosinophils Percent Auto 1.5 % (0-4); Hematocrit 37.3 % (37.0-47.0); Hemoglobin 11.8 g/dl (12.0-16.0); Imm Gran Abs Auto 0.04 X10*3/uL (0.00-0.03); Imm Gran Pct Auto 0.8 % (0.0-0.4); Lymphocytes Absolute Auto 0.9 X10*3/uL (1.2-4.9); Lymphocytes Percent Auto 17.3 % (20-40); Mean Corpuscular HGB Conc 31.6 g/dl (31.0-35.0); Mean Corpuscular Volume 88.4 fL (80.0-98.0); Monocytes Absolute Auto 0.9 X10*3/uL (0.1-1.2); Neutrophils Absolute Auto 3.2 x10*3/uL (2.0-8.3); Neutrophils Percent Auto 62.4 % (45-73); Platelet Count 222 X10*3/uL (160-400); Red Blood Count 4.22 X10*6/uL (4.20-5.50); Red Cell Distribution Width 15.9 % (11.0-16.0); White Blood Count 5.2 X10*3/uL (4.8-10.8)
[2022-05-02 12:18] LABS: Cholesterol 146 mg/dL; HDL Cholesterol 49 mg/dL; LDL Cholesterol Calculated 54 mg/dl; Triglycerides 215 mg/dL
[2022-05-02 12:28] LABS: Free T4 (Free Thyroxine) 0.76 ng/dL (0.71-1.85); Thyroid Stimulating Hormone 8.23 uIU/mL (0.32-4.0)
[2022-05-02 12:50] LABS: Folate > 20.0 ng/mL (> or = 4.0); Vitamin B12 813 pg/mL (200-900)
== END 2022-05-02 07:40 | disposition home or self-care (01) ==
LOC: HO.HMGCLDS 07:39
PROVIDERS: Absent Provider Surgery Vascular Surgery; PCP Internal Medicine; Visit Provider Internal Medicine
DX: K80.20 Calculus of gallbladder without cholecystitis without obstruction (principal); E78.00 Pure hypercholesterolemia, unspecified
CPT/HCPCS: 36415; 80061; 82607; 82746; 84439; 84443; 85025

== ENCOUNTER → 2022-05-18 11:23 | Outpatient (BNVA) | payer MEDICARE, SELFPAY | PROVIDERS: PCP Internal Medicine; Visit Provider Internal Medicine | DX: J44.9 Chronic obstructive pulmonary disease, unspecified (principal); J18.9 Pneumonia, unspecified organism | CPT/HCPCS: 99212 ==

== ENCOUNTER 2022-05-31 15:50 | Outpatient (REF) | payer MEDICARE, SELFPAY ==
--- NOTE | ~2022-05-31 | XR_ITS ---
EXAMINATION: XR CHEST CLINICAL INFORMATION: Pneumonia COMPARISON: 04/27/2022 TECHNIQUE: 2 views of the chest were obtained. Patient slightly rotated to the right. FINDINGS: No new airspace consolidation or vascular congestion seen. Pleural surfaces appear to be clear. Lytic lesion of the posterior right eighth rib is again observed. Lytic lesion of the inferior left scapula does not appear significantly changed. Postoperative changes again seen in the left shoulder. Degenerative change again observed in the right shoulder. Thoracic spondylitic changes noted. XR/XR chest 2V IMPRESSION: No new infiltrates or effusions identified. No significant changes since previous evaluation of April 2022.
== END 2022-05-31 15:51 | disposition home or self-care (01) ==
LOC: HO.XRAY 15:50
PROVIDERS: PCP Internal Medicine; Visit Provider Nurse Practitioner Family
DX: J18.9 Pneumonia, unspecified organism (principal)
CPT/HCPCS: 71046

== ENCOUNTER → 2022-06-14 11:18 | Outpatient (BNVA) | payer MEDICARE, SELFPAY | PROVIDERS: PCP Internal Medicine; Referring Provider Internal Medicine; Visit Provider Internal Medicine Cardiovascular Disease | DX: C90.00 Multiple myeloma not having achieved remission (principal); I10 Essential (primary) hypertension; R06.00 Dyspnea, unspecified | CPT/HCPCS: 99212 ==

== ENCOUNTER → 2022-06-26 09:11 | Outpatient (BNVA) | payer MEDICARE, SELFPAY | PROVIDERS: PCP Internal Medicine; Visit Provider Internal Medicine | DX: G89.3 Neoplasm related pain (acute) (chronic) (principal); C90.00 Multiple myeloma not having achieved remission; M75.41 Impingement syndrome of right shoulder; G89.29 Other chronic pain | CPT/HCPCS: 99202 ==

== ENCOUNTER → 2022-08-03 13:54 | Outpatient (BNVA) | payer MEDICARE, SELFPAY | PROVIDERS: PCP Internal Medicine; Visit Provider Internal Medicine | DX: J44.9 Chronic obstructive pulmonary disease, unspecified (principal); R06.00 Dyspnea, unspecified; R05.3 Chronic cough | CPT/HCPCS: 99212 ==

== ENCOUNTER 2022-08-07 14:07 | Outpatient (REF) | payer MEDICARE, SELFPAY ==
--- NOTE | ~2022-08-07 | XR_ITS ---
EXAMINATION: XR CHEST CLINICAL INFORMATION: Cough and congestion. Rib pain. COMPARISON: Chest 05/31/2022. CT chest 02/06/2022. TECHNIQUE: Two views of the chest were obtained. FINDINGS: The lungs are well expanded with no acute pneumonic process. There are no pulmonary nodules. Heart size and pulmonary vascularity is normal. There is a sclerotic density overlying the right 8th rib and an expansile lesion along the lateral margin of the left scapula. No additional bony abnormality seen. XR/XR chest 2V IMPRESSION: 1. No acute cardiopulmonary process seen. 2. There is a sclerotic density overlying the right eighth rib likely healing pathological fracture and expansile lytic lesion along the lateral margin left scapula. These findings were noted on the previous CT chest 02/06/2022.
== END 2022-08-07 14:08 | disposition home or self-care (01) ==
LOC: HO.XRAY 14:07
PROVIDERS: Visit Provider Internal Medicine Medical Oncology
DX: C90.00 Multiple myeloma not having achieved remission (principal)
CPT/HCPCS: 71046

== ENCOUNTER → 2022-08-15 08:50 | Outpatient (BNVA) | payer MEDICARE, SELFPAY | PROVIDERS: PCP Internal Medicine; Visit Provider Nurse Practitioner Family | DX: N39.41 Urge incontinence (principal); R35.0 Frequency of micturition | CPT/HCPCS: 51798; 99202 ==

== ENCOUNTER 2022-09-19 12:10 | Outpatient (REF) | payer MEDICARE, SELFPAY ==
--- NOTE | ~2022-09-19 | XR_ITS ---
EXAMINATION: XR CHEST CLINICAL INFORMATION: Cough and shortness of breath. COMPARISON: 08/07/2022 chest radiographs. TECHNIQUE: 2 views of the chest were obtained. FINDINGS: The lungs are clear. There are no pleural effusions. The heart and mediastinal structures are unremarkable. Old healed right eighth and left fifth rib fractures. Left inferior scapular lesion previously identified with similar appearance. XR/XR chest 2V IMPRESSION: Stable chest. No acute cardiopulmonary process.
--- NOTE | ~2022-09-19 | XR_ITS ---
EXAMINATION: XR SKELETAL SURVEY CLINICAL INFORMATION: Follow-up bone lesions from myeloma. COMPARISON: Bone survey 03/12/2020 TECHNIQUE: Whole body bone survey was performed and compared to earlier exam 03/12/2020 FINDINGS: SKULL: Single lateral view of skull reveals a new lytic lesion in the proximal region. It measures 1.8 cm in maximum length. The visualized paranasal sinuses are normal. CERVICAL SPINE: There is mild straightening of cervical lordosis. The vertebral heights and alignment are normal. There is loss of C4-C5, C5-C6 and C6-C7 disc heights with moderate ventral and mild posterior cervical spondylosis. The craniovertebral junction and the C1-C2 alignment is normal. THORACIC SPINE: There is maintained thoracic kyphosis with minimal upper thoracic levoscoliosis. The vertebral heights are normal. There is mild degenerative changes mid dorsal spine with mid and lower dorsal spine ventral spondylosis. No visible acute fracture, lytic or sclerotic process seen. Paravertebral soft tissues are normal. LUMBOSACRAL SPINE: There is maintained lumbar lordosis with grade 1 anterolisthesis L4 over L5. There is loss of L4-L5 and L5-S1 disc heights. There is mild ventral spondylosis at the L3-L4 disc level. No visible acute fracture, dislocation or lytic process seen. There is bilateral L3-L4, L4-L5 facet joint arthropathy. There is a small lucent lesion posterior L1 vertebra, new since previous study. PELVIS: The SI joints and the hip joints are normal. There are several lucent lesions seen in the right proximal femur. No acute fracture or dislocation seen. LEFT SCAPULA AND HUMERUS: There is a solitary screw along the left proximal humerus from previous RC repair. Otherwise the entire left humerus is unremarkable. There is a mixed attenuation expansile lesion in the tip of the scapula, new since the previous study. RIGHT HUMERUS: There is mild degenerative changes in the right shoulder joint. The humerus is unremarkable. LEFT RADIUS AND ULNA: Nonspecific mixed attenuation densities are seen in the distal radius, stable. RIGHT RADIUS AND ULNA: No lytic or sclerotic process seen. There is a lateral epicondyle moderate size enthesophyte. RIGHT FEMUR: There are small lucencies in the proximal right femur better visualized in the pelvic x-ray. No other abnormality seen. LEFT FEMUR: Unremarkable. BILATERAL TIBIA AND FIBULA: No lytic or sclerotic process seen. There are mild degenerative changes in the medial compartment, right knee. XR/XR bone survey IMPRESSION: 1. Several new abnormal lesions are seen. 2. A lytic lesion in the occipital lobe, mixed attenuation expansile lesion left scapula, moderate-sized lucent lesion L1 vertebra and several lucent lesions in the right proximal femur.
== END 2022-09-19 12:11 | disposition home or self-care (01) ==
LOC: HO.XRAY 12:10
PROVIDERS: PCP Internal Medicine; Visit Provider Internal Medicine Medical Oncology
DX: C90.00 Multiple myeloma not having achieved remission (principal)
CPT/HCPCS: 71046; 77075

== ENCOUNTER → 2022-11-08 11:21 | Outpatient (BNVA) | payer MEDICARE, SELFPAY | PROVIDERS: PCP Internal Medicine; Visit Provider Internal Medicine | DX: J44.9 Chronic obstructive pulmonary disease, unspecified (principal); J45.20 Mild intermittent asthma, uncomplicated; R06.00 Dyspnea, unspecified; C90.00 Multiple myeloma not having achieved remission; F41.9 Anxiety disorder, unspecified; Z79.899 Other long term (current) drug therapy | CPT/HCPCS: 94618; 99212 ==

== ENCOUNTER → 2022-11-23 08:24 | Outpatient (BNVA) | payer MEDICARE, SELFPAY | PROVIDERS: PCP Internal Medicine; Visit Provider Internal Medicine Gastroenterology | DX: K80.20 Calculus of gallbladder without cholecystitis without obstruction (principal); R13.14 Dysphagia, pharyngoesophageal phase; K52.9 Noninfective gastroenteritis and colitis, unspecified; K21.9 Gastro-esophageal reflux disease without esophagitis; C90.00 Multiple myeloma not having achieved remission | CPT/HCPCS: 99212 ==

== ENCOUNTER 2023-01-01 15:17 | Outpatient (REF) | payer MEDICARE, SELFPAY ==
--- NOTE | ~2023-01-01 | MM_ITS ---
EXAMINATION: MM SCREENING DIGITAL BREAST TOMOSYNTHESIS, BILATERAL CLINICAL INFORMATION: Screening. Asymptomatic. The lifetime risk of breast cancer based on the Tyrer-Cuzick Model is 2%. COMPARISON: Mammography: 07/14/2016, 05/07/2015 TECHNIQUE: Digital breast tomosynthesis is performed in both the craniocaudal and mediolateral oblique views along with computer-aided detection (CAD). Synthesized 2D images are generated from the tomosynthesis. FINDINGS: There are scattered areas of fibroglandular density (ACR BI-RADS breast composition Category b). There are no significant masses, abnormal calcifications, or other abnormalities. Parenchymal pattern is similar to prior studies. There is no developing density or architectural abnormality. There are some scattered bilateral punctate benign round calcifications again seen. The axilla and skin contours are unremarkable. No significant changes. MM/MM tomosynthesis screening BI IMPRESSION: No mammographic evidence of malignancy. ASSESSMENT: BI-RADS 1: Negative RECOMMENDATION: Routine annual mammography screening. This patient's information was entered into a reminder system with a target due date for their next mammogram.
== END 2023-01-01 15:18 | disposition home or self-care (01) ==
LOC: HO.MAMMO 15:17
PROVIDERS: PCP Internal Medicine; Visit Provider Internal Medicine
DX: Z12.31 Encounter for screening mammogram for malignant neoplasm of breast (principal)
CPT/HCPCS: 77063; 77067

== ENCOUNTER → 2023-01-11 13:15 | Outpatient (BNVA) | payer MEDICARE, SELFPAY | PROVIDERS: PCP Internal Medicine; Referring Provider Internal Medicine; Visit Provider Nurse Practitioner Family | DX: I10 Essential (primary) hypertension (principal); R06.00 Dyspnea, unspecified; J44.1 Chronic obstructive pulmonary disease with (acute) exacerbation; C90.00 Multiple myeloma not having achieved remission; I65.23 Occlusion and stenosis of bilateral carotid arteries | CPT/HCPCS: 99212 ==

== ENCOUNTER → 2023-02-12 10:49 | Outpatient (BNVA) | payer MEDICARE, SELFPAY | PROVIDERS: PCP Internal Medicine; Visit Provider Internal Medicine | DX: J44.9 Chronic obstructive pulmonary disease, unspecified (principal); F41.9 Anxiety disorder, unspecified; R06.00 Dyspnea, unspecified | CPT/HCPCS: 99212 ==

== ENCOUNTER 2023-02-21 08:14 | Outpatient (REF) | payer MEDICARE, SELFPAY ==
[2023-02-21 11:27] LABS: Appearance Urine Clear; Color Urine Yellow; Glucose Urine UA Negative (Negative); Leukocyte Esterase Urine Trace (Negative); Nitrite Urine Negative (Negative); Specific Gravity - Urine 1.015 (1.005-1.025); UMIC TRIGGER UA YES; Urine Blood Negative (Negative); Urine Ketones Negative (Negative); Urine Protein Negative (Neg-Trace)
[2023-02-21 11:31] LABS: Bacteria Urine None Seen (None Seen); Hyaline Casts Urine 0-2 /LPF (0-2); WBC Urine 0-5 /HPF (0-5)
[2023-02-21 12:16] LABS: Estimated Average Glucose 114 mg/dL; Hemoglobin A1c % 5.6 %
[2023-02-21 12:19] LABS: Alanine Aminotransferase 27 U/L (0-31); Albumin Level 4.3 g/dL (3.5-5.0); Alkaline Phosphatase 51 U/L (39-117); Anion Gap 13 (12-20); Aspartate Amino Transferase 23 U/L (5-31); Bilirubin Total 0.7 mg/dL (0.0-1.0); Blood Urea Nitrogen 22 mg/dL (9-16); Calcium 9.9 mg/dL (8.4-10.2); Carbon Dioxide 26 mmol/L (22-29); Chloride 107 mmol/L (96-108); Cholesterol 157 mg/dL; Estimated Glomerular Filt Rate > 60; Free T4 (Free Thyroxine) 0.77 ng/dL (0.71-1.85); Glucose Random 130 mg/dL (60-115); HDL Cholesterol 53 mg/dL; LDL Cholesterol Calculated 70 mg/dl; Potassium 4.2 mmol/L (3.3-5.1); Sodium 142 mmol/L (135-145); Thyroid Stimulating Hormone 2.23 uIU/mL (0.32-4.0); Total Protein 6.3 g/dL (6.5-8.0); Triglycerides 171 mg/dL; Vitamin D 25-OH Total 46.9 ng/mL (>30)
[2023-02-21 12:30] LABS: Folate 16.9 ng/mL (> or = 4.0); Vitamin B12 531 pg/mL (200-900)
== END 2023-02-21 08:15 | disposition home or self-care (01) ==
LOC: HO.HMGCLDS 08:14
PROVIDERS: PCP Internal Medicine; Visit Provider Internal Medicine
DX: E78.00 Pure hypercholesterolemia, unspecified (principal); R73.9 Hyperglycemia, unspecified; C90.00 Multiple myeloma not having achieved remission
CPT/HCPCS: 36415; 80053; 80061; 81001; 82306; 82607; 82746; 83036; 84439; 84443

== ENCOUNTER 2023-04-12 11:39 | Outpatient (AMB) | payer MEDICARE, SELFPAY ==
[2023-04-12 11:51] VITALS: BP 140/78; PULSE 68; O2SAT 96; BMI 30.8
--- NOTE | 2023-04-12 11:51 | A.OFFPC_ITS ---
Vital Signs 04/12/23 11:51 Height 5 ft 3 in Weight 174 lb BMI 30.8 BP 140/78 H Blood Pressure Location Lt brachial Position Sitting Pulse 68 Pulse Source Pulse Oximeter Pulse Oximetry (%) 96 Oxygen Delivery Method Room Air Intake Visit Reasons: MM, COPD Allergies oxycodone [From OXYCONTIN] Allergy (Mild, Verified 04/12/23 11:51) PRURITUS, severe itching adhesive tape Allergy (Unknown, Verified 04/12/23 11:51) BLISTERS cephalexin [Keflex] Allergy (Unknown, Verified 04/12/23 11:51) hives doxycycline [DOXYCYCLINE] Adverse Reaction (Intermediate, Verified 04/12/23 11:51) STOMACH PAINS Tobacco use date assessed: 09/28/22 Fall risk assessment: No Falls in past year Last assessed Fall Risk: 04/12/23 Dental Screening Dental Screen Date: 04/12/23 Did you have a dental visit in the last 12 months?: Yes Did you have a dental problem in the last 6 months where you did not have access to dental care?: No Was dental information given to patient?: Patient has dentist HPI MM, COPD HPI Details 78-year-old female with multiple myeloma hypertension GERD hy percholesterol E chronic diarrhea COPD generalized anxiety disorder last seen in January 2023.. Patient follows up with hematology oncology last seen in 03/20/2023 Decadron taper continuing on denosumab every 6 months patient has been sent for physical therapy also. Patient was in the hospital in March 2022 for pneumonia steroids and antibiotics. On home oxygen. Patient also follows up with Pulmonary for the COPD. As for carotid artery stenosis left seeing vascular surgeon mild on the right unchanged on prior ultrasound continuing to monitor. complains of food getting stuck, seeing GI, discussed about immodium and side effects. Patient has handicap placard application. As for the back pain patient has had lumbar spondylosis and getting physical therapy presently [facility] Medical History Acute exacerbation of chronic obstructive pulmonary disease Anxiety Asthma Bladder cancer Cataract Chronic cough COPD (chronic obstructive pulmonary disease) Costochondritis Dyspnea on exertion Generalized anxiety disorder GERD (gastroesophageal reflux disease) Hypertension IBS (irritable bowel syndrome) Multiple myeloma Pneumonia Urinary frequency Urinary incontinence, urge Urinary urgency Surgical History H/O cardiac catheterization H/O colonoscopy H/O eye surgery H/O rotator cuff surgery H/O wrist surgery History of arthroscopy of both knees History of esophagogastroduodenoscopy (EGD) History of eyelid surgery History of tonsillectomy Family History Father Pancreatic cancer Diabetes Stroke Mother No problems noted. Sister Diabetes Son No problems noted. Social History Household Members: Spouse [facility] Are you a primary certified social workers in health care to a significant other at home: No Do you presently have visiting nurse or other home services: Yes ([facility]) Alcohol intake: never Patient Tobacco Use Status: Former Tobacco user Tobacco use type: Cigarette e-Cigarette/Vaping Use: Never Used Second Hand Smoke Exposure: No Advance Directives Date on File: 11/11/20 service: No Current occupational status: retired Cognitive needs: No Hearing needs: No Vision needs: Yes Questionnaire PHQ-9 Over the last 2 weeks, how often have you been bothered by any of the following problems? 1. Little interest or pleasure in doing things: not at all 2. Feeling down, depressed, or hopeless: not at all 3. Trouble falling or staying asleep, or sleeping too much: not at all 4. Feeling tired or having little energy: not at all 5. Poor appetite or overeating: not at all 6. Feeling bad about yourself - or that you are a failure or have let yourself or your family down: not at all 7. Trouble concentrating on things, such as reading the newspaper or watching television: not at all 8. Moving or speaking so slowly that other people could have noticed. Or the opposite - being so fidgety or restless that you have been moving around a lot more than usual: not at all 9. Thoughts that you would be better off or of hurting yourself in some way: not at all Total score: 0 Depression Screening Interpretation: Negative Source: Developed by Drs. Ian Moss, Moni Maharaj, Usama Garces and colleagues, with an educational jaylon from [employer]. Thrive Questionnaire Date Thrive assessed: 09/28/22 AUDIT C Alcohol Use Questionnaire (AUDIT-C) 1. How often do you have a drink containing alcohol?: Never 2. How many drinks containing alcohol do you have on a typical day when you are drinking?: 1 or 2 3. How often do you have six or more drinks on one occasion?: Never Total Score: 0 Score Reviewed/Action Taken: No [place]-7 AMB Questionnaire [place]-7 Date [place] - 7 assessed: 09/28/22 Source: Developed by Drs. Ian Moss, Moni Maharaj, Usama Garces and colleagues, with an educational jaylon from [employer]. Physical exam (Primary Care) Vital Signs: Last Vital Signs Pulse 68 04/12/23 11:51 BP 140/78 H 04/12/23 11:51 Pulse Ox 96 04/12/23 11:51 Oxygen Delivery Method Room Air 04/12/23 11:51 BMI result Body Mass Index 30.8 Tobacco/Smoking Status: Tobacco use Status Tobacco use date assessed 09/28/22 04/12/23 11:58 Patient Tobacco Use Status Former Tobacco user 04/12/23 11:58 Tobacco use type Cigarette 04/12/23 11:58 e-Cigarette/Vaping Use Never Used 04/12/23 11:58 PHQ-9: PHQ-9 Score PHQ-9: Total score 0 04/12/23 11:58 Depression Screening Interpretation: Negative Thrive Assessment: Date of Thrive Assessment Date Thrive assessed 09/28/22 04/12/23 11:58 Const General: alert; No acute distress Eyes Conjunctivae: conjunctivae normal Resp Auscultation: clear to auscultation bilaterally Cardio Rate: regular rate Rhythm: regular rhythm GI Inspection: Yes normal to inspection Extrem General: Yes normal to inspection and No edema Assessment and Plan Assessment & Plan (1) Multiple myeloma: Comment: Most of her complaints, her pertaining to her multiple myeloma. She is relatively happy that the current med ( Velcade ) is working better . Code(s): C90.00 - Multiple myeloma not having achieved remission Qualifiers: Multiple myeloma remission status: unspecified Qualified Code(s): C90.00 - Multiple myeloma not having achieved remission Plan: Continue to follow-up with Hematology-Oncology and on treatment (2) Hypertension: Code(s): I10 - Essential (primary) hypertension Qualifiers: Hypertension type: essential hypertension Qualified Code(s): I10 - Essential (primary) hypertension Plan: Continue with blood pressure medication. Decrease salt intake and exercise patient takes amlodipine 5 mg once a day losartan 100 mg once a day metoprolol 50 mg once a day (3) GERD (gastroesophageal reflux disease): Code(s): K21.9 - Gastro-esophageal reflux disease without esophagitis Qualifiers: Esophagitis presence: without esophagitis Qualified Code(s): K21.9 - Gastro-esophageal reflux disease without esophagitis Plan: Avoid the foods that causes that usually spicy foods, tomato products, juices, coffee, soda and foods that your sensitive to. After eating do not lie down, allow 3-4 hours before in lie down. And keep the head of bed above 30 degrees to avoid the acid from going up. (4) Bilateral carotid artery stenosis: Comment: Dr. Rigoberto Bojorquez [id number] CArotid 2020 Q 6 months, December 2022 Code(s): I65.23 - Occlusion and stenosis of bilateral carotid arteries Plan: Patient under surveillance with vascular surgeon 70% on the left right is normal December 2019 (5) Hypercholesterolemia: Code(s): E78.00 - Pure hypercholesterolemia, unspecified Plan: Avoid fried foods, chicken skin, eggs, butter margarine, pastries and meat. Be it pork or beef they have a lot of cholesterol LDL goal of less than 70 and triglyceride of less than 150 February 2023 tested (6) Chronic diarrhea: Code(s): K52.9 - Noninfective gastroenteritis and colitis, unspecified Plan: Follows up with Gastroenterology on Lomotil p.r.n. (7) COPD (chronic obstructive pulmonary disease): Comment: She does have evidence of mild to moderate degree of CHRONIC OBSTRUCTIVE PULMONARY DISEASE, in addition to symptoms of mild bronchial asthma. ,At present well controlled even without using Symbicort. Advised to use albuterol HFA 2 puffs Q 4-6 hours only p.r.n.. Code(s): J44.9 - Chronic obstructive pulmonary disease, unspecified Plan: Pulmonary notes appreciated continue with the inhalers (8) Generalized anxiety disorder: Code(s): F41.1 - Generalized anxiety disorder Plan: Continue with present medication (9) Hand pain: Code(s): M79.643 - Pain in unspecified hand (10) Tinea pedis: Code(s): B35.3 - Tinea pedis Orders: Orders XR hand RT 2V Today M79.643 - Pain in unspecified hand XR chest 2V Today J06.9 - Acute upper respiratory infection, unspecified Medications: Discontinued lorazepam 0.5 mg PO BID PRN 50 tabs 2RF Anxiety C90.00 - Multiple myeloma not having achieved remission lorazepam 0.5 mg PO BID PRN 50 tabs 2RF Anxiety C90.00 - Multiple myeloma not having achieved remission lorazepam 0.5 mg PO BID PRN 50 tabs 2RF Anxiety C90.00 - Multiple myeloma not having achieved remission lorazepam 0.5 mg PO BID PRN 50 tabs 2RF Anxiety C90.00 - Multiple myeloma not having achieved remission Coding Level of Care Code Est Pt Level 4 (61406) Diagnoses Multiple myeloma C90.00 Multiple myeloma remission status: unspecified Hypertension I10 Hypertension type: essential hypertension GERD (gastroesophageal reflux disease) K21.9 Esophagitis presence: without esophagitis Bilateral carotid artery stenosis I65.23 Hypercholesterolemia E78.00 Chronic diarrhea K52.9 COPD (chronic obstructive pulmonary disease) J44.9 Generalized anxiety disorder F41.1 Hand pain M79.643 Tinea pedis B35.3 Additional Codes PHQ-9 - 29661 - PHQ-9 Billing: Y ([id number])
== END 2023-04-12 12:47 | disposition home or self-care (01) ==
PROVIDERS: Visit Provider Internal Medicine
DX: I10 Essential (primary) hypertension (principal); C90.00 Multiple myeloma not having achieved remission; K21.9 Gastro-esophageal reflux disease without esophagitis; J44.9 Chronic obstructive pulmonary disease, unspecified; I65.23 Occlusion and stenosis of bilateral carotid arteries; E78.00 Pure hypercholesterolemia, unspecified; K52.9 Noninfective gastroenteritis and colitis, unspecified; F41.1 Generalized anxiety disorder; M79.643 Pain in unspecified hand; B35.3 Tinea pedis
CPT/HCPCS: 99214

== ENCOUNTER 2023-04-18 15:54 | Outpatient (REF) | payer MEDICARE, SELFPAY ==
--- NOTE | ~2023-04-18 | XR_ITS ---
EXAMINATION: XR CHEST CLINICAL INFORMATION: Acute upper respiratory infection COMPARISON: Chest radiograph from 09/19/2022 TECHNIQUE: 2 views of the chest were obtained. FINDINGS: Chronic coarsened interstitial lung markings. Slight bibasilar atelectasis. No pneumothorax. Trachea is midline. Cardiac mediastinal silhouette is stable. Aorta demonstrates atherosclerotic ulcerations. No large pleural effusion. Degenerative changes of the thoracolumbar spine. Healed right posterior rib fractures. Stable lesion involving the left scapula. Partially visualized left humeral head surgical anchor. Degenerative arthropathy of the right humeral head. Soft tissues are unremarkable. XR/XR chest 2V IMPRESSION: 1. Chronic coarsened interstitial lung markings. 2. Slight bibasilar atelectasis. 3. Stable lesion involving the left scapula.
--- NOTE | ~2023-04-18 | XR_ITS ---
EXAMINATION: XR HAND, RIGHT CLINICAL INFORMATION: Pain COMPARISON: Right wrist radiograph from 04/27/2022 TECHNIQUE: PA, lateral, and oblique views of the right hand. FINDINGS: No acute visible fracture or dislocation. Mild multi joint arthritic changes with joint space narrowing and periarticular osteophyte formation. Chondrocalcinosis involving the triangular fibrocartilaginous complex. Joint spaces and alignment are otherwise maintained. Soft tissues are unremarkable. XR/XR hand RT 2V IMPRESSION: 1. No acute visible fracture or dislocation. 2. Mild multi joint arthritic changes. 3. Chondrocalcinosis involving the TFCC.
== END 2023-04-18 15:55 | disposition home or self-care (01) ==
LOC: HO.XRAY 15:54
PROVIDERS: PCP Internal Medicine; Visit Provider Internal Medicine
DX: M79.641 Pain in right hand (principal); J06.9 Acute upper respiratory infection, unspecified
CPT/HCPCS: 71046; 73120

== ENCOUNTER 2023-04-20 07:54 | Outpatient (AMB) | payer MEDICARE, SELFPAY ==
--- NOTE | 2023-04-20 08:01 | A.OFFVIS_ITS ---
Intake Vital Signs 04/20/23 08:06 Height 5 ft 3 in Weight 174 lb BMI 30.8 BP 133/61 Blood Pressure Location Lt brachial Position Sitting Pulse 70 Intake Visit Reasons: follow up Intake Note: Patient follow up for acid reflex. Patient cc: acid reflex, upper center abdominal pain with bloating, also dysphagia on and off with solid and liquid. Glass Engraver Required: No Accompanied by: Self / Same As Patient Allergies oxycodone [From OXYCONTIN] Allergy (Mild, Verified 06/18/23 12:00) PRURITUS, severe itching adhesive tape Allergy (Unknown, Verified 06/18/23 12:00) BLISTERS cephalexin [Keflex] Allergy (Unknown, Verified 06/18/23 12:00) hives doxycycline [DOXYCYCLINE] Adverse Reaction (Intermediate, Verified 06/18/23 12:00) STOMACH PAINS Medication List - Last Reconciled 04/20/23 by Trena Dotson MD albuterol sulfate 90 mcg/actuation (Ventolin HFA) 2 puffs inhalation Q4-6H PRN 30 days amlodipine 5 mg PO DAILY aspirin 81 mg PO DAILY atorvastatin 20 mg PO DAILY dexamethasone 6 mg PO DAILY PRN diphenoxylate-atropine 2.5-0.025 mg (Lomotil) 1 tab PO TID PRN lorazepam 0.5 mg PO BID PRN losartan 100 mg PO DAILY mecobalamin (vitamin B12) (B12 Active) 1,000 mcg PO DAILY meloxicam 15 mg PO DAILY metoprolol succinate ER 50 mg PO DAILY mirabegron ER (Myrbetriq) 50 mg PO DAILY miscellaneous medical supply 1 ea miscellaneous DAILY pantoprazole 40 mg PO DAILY sulfamethoxazole-trimethoprim 800-160 mg 1 tab PO DAILY Symbicort 160-4.5 mcg/actuation (budesonide-formoterol) 2 puffs PO BID NS tramadol 50 mg PO BID PRN valacyclovir (Valtrex) 500 mg PO DAILY HPI follow up HPI Details FU GI clinic visit for this 78-year-old female for FU of GERD and IBS. Patient has been followed by Dr. Bojorquez since 2014 for? nausea,? epigastric pain, heartburn, dysphagia and diarrhea She is followed by Dr Muniz in heme-onc for multiple myeloma. LABS IN [facility] :?celiac serologies were negative, stool wbc and culture negative, C Diff was equivocal IMAGING STUDIES:? 3/7/22 BARIUM SWALLOW SHOWED: Esophageal caliber is normal. There is moderate dysmotility. No fixed stricture or extrinsic mass lesion demonstrated. No mucosal abnormality. No hiatal hernia. No gastroesophageal reflux observed. A barium tablet passed through the esophagus into the stomach. ENDOSCOPIC STUDIES:? 2018? EGD showed a small hiatal hernia. Same day colonoscopy was negative ? Except 1+ internal hemorrhoids.? Duodenal biopsies were normal, gastric biopsies showed mild chronic inactive gastritis and was negative for H pylori.? Random biopsies obtained from right and left colon were normal. Sep 2016? EGD AND COLONOSCOPY SHOWED: Hemorrhagic gastritis, soft changes consistent with possibilityof gastroesophageal reflux disorder - GASTRIC BIOPSIES WERE NEGATIVE FOR H PYLORI.? Mild diverticulosis and +1 internal hemorrhoids. PLAN:? Patient will be reseen in my office in 4 weeks.? Repeat colon cancer screening would be recommended for 5-7 years depending on clinical conditions Patient cc: acid reflex, upper center abdominal pain with bloating, also dysp hagia on and off with solid and liquid. TODAYS VISIT: Complains of postprandial abdominal pain/pressure and unsure what to eat. Stomach does not feel good. Continues to have dysphagia and can have regurgitation of food into her throat (new problem) Intermittent heartburn and takes peptobismol or TUMS Continues to have loose stools - not always diarrhea Stopped writing down what she eats since she is unable to find a pattern. Takes 2 tab of immodium when she has increased diarrhea and takes another 2 tablets if she continues to have diarrhea. Takes Tramadol less than a few times a month and not daily. PAST VISITS: Decreased her treatment Velcade (Sunday treatment was stopped) due to hair loss. Has mets to the back and spine BMs are rarely formed - either mush or liquid, and sometimes orange in color and rarely diarrhea. Wt gain despite eating less - eats until she feels full. Does not eat big portions. Started taking a nutrition shake. Drinks a lot of water. Uses a heat pack on the stomach since it hurts. Notes urgency after she eats. Keeps a journal and is unable to find a pattern Sometimes she notes a little blood on the side of the stools Took some ice cream and had diarrhea after eating it Takes Lactose free milk Rarely has trouble going. PAST VISITS: Hospitalized in 03/2022 with COPD and pneumonia Notes intermittent cough usually in the am. On a steroid taper at present. Continues to have dysphagia with solids and large pills. Diarrhea is not too bad. Had an episode of gelatinous stool on 04/07/22 [facility] Has 1 to 5 BMs a day. Takes Colestipol and 1 imodiun when she has diarrhea. Unable to identify precipitating foods. Avoids spicy foods Getting treatment for MM every 2 weeks followed by dexamethasone on Sun and . Seeing her Chiropractor for aches and pains - which is helping Stopped Creon since it was causing abdominal cramps. Notes diarrhea 2 -3 times a week - not related to treatment. Not taking colestipol due to concern for constipation. Intermittent rectal bleeding when she is constipated which she attributes to hemorrhoids. Takes Tramadol for body pains. Keeping a journal of diet and BMs Sometimes certain foods won't bother her and sometimes its a disaster Notes worsening dysphagia to liquids and solids - denies regurgitation with dysphagia episodes. Dysphagia is more often with liquids than solids. Denies coughing spells with dysphagia Broke her tooth and had nausea? due to enamel Starting to have a little problem with constipation (none since 2017) Still has intermittent diarrhea and is more manageable - taking imodium, Tums and colestipol Can have upto 7 BMs a day. Getting sinus DIEGO's. Kept a dairy of her BMs. Continues to have loose and liquid BMs. BMs are broken into lumps and bumps Eating less and gaining wt. Does not know what to eat since a lot of foods bother her Avoids salads and broccoli Stool studies were reviewed. Notes fat in the stool intermittently Continues to have intermittent diarrhea. On Revlimid (Lenalidomide)every 3 weeks - rest x 1 week - unsure if she has incrased diarrhea while on Revlimid. Can have lower abd pain, or pain can move up into the epigastrium. Has been noticing some gas over the past month. Biggest issue is her sleep since she has to get up to urinate. Her bowels do not interrupt her sleep. Can have 1-2 and upto 5 Bms a day - upto 7 times once. Concerned she may be loosing her nutrients. Takes Colestipol, imodium or peptobismol which works and diarrhea can come right back TUMS does not help. Diagnosed with Multiple Myeloma 5 yrs ago when she noted worsening fatigue. Takes Pantoprazole at night - advised by Dr Bojorquez. Takes imodium for the diarrhea. Sometimes takes peptobismol, meenakshi seltzer or TUMS for the diarrhea. She is taking colestipol once daily and takes a 2nd dose if diarrhea is?bad [facility] Medical History Urinary incontinence, urge Urinary frequency Urinary urgency Pneumonia Acute exacerbation of chronic obstructive pulmonary disease Chronic cough Generalized anxiety disorder Costochondritis Dyspnea on exertion COPD (chronic obstructive pulmonary disease) Anxiety Cataract Bladder cancer GERD (gastroesophageal reflux disease) Asthma IBS (irritable bowel syndrome) Hypertension Multiple myeloma Surgical History History of esophagogastroduodenoscopy (EGD) H/O colonoscopy History of eyelid surgery History of tonsillectomy H/O wrist surgery H/O eye surgery History of arthroscopy of both knees H/O rotator cuff surgery H/O cardiac catheterization Family History Father Pancreatic cancer Diabetes Stroke Mother No problems noted. Sister Diabetes Son No problems noted. Social History Household Members: Sp[facility] Are you a primary cardiac care nurse to a significant other at home: No Do you presently have visiting nurse or other home services: Yes ([facility]) Alcohol intake: never Patient Tobacco Use Status: Former Tobacco user Tobacco use type: Cigarette e-Cigarette/Vaping Use: Never Used Second Hand Smoke Exposure: No Advance Directives Date on File: 11/11/20 service: No Current occupational status: retired Cognitive needs: No Hearing needs: No Vision needs: Yes Review of Systems Const All systems reviewed & are unremarkable except as noted in HPI and below Physical Exam Vital Signs: Last Vital Signs Pulse 70 04/20/23 08:06 BP 133/61 04/20/23 08:06 BMI result Body Mass Index 30.8 Const General: healthy appearing and no acute distress Nutritional Appearance: obese Orientation/consciousness: patient oriented x3 Limitations: no limitations HEENT Head: Yes normal to inspection Ears: hearing grossly normal bilaterally Eyes Sclerae: sclerae normal Pupils: Equal, round and reactive pupils present Neck Neck: Yes normal visual inspection Chest Chest palpation & inspection: normal inspection of the chest Resp Effort & Inspection: normal respiratory effort Auscultation: clear to auscultation bilaterally Cardio Palpation: normal PMI Rate: regular rate Rhythm: regular rhythm Heart sounds: S1 normal heart sound present, S2 normal heart sound present and no murmurs GI Palpation (GI): Soft to palpation, nontender and No hepatosplenomegaly present Auscultation: normal bowel sounds Rectal Exam - Female: deferred Skin General skin exam: no rashes or lesions noted Neuro General: patient oriented x3, gait normal and moves all extremities Cranial nerves: Yes Equal, round and reactive pupils present Psych Appearance: grossly normal Mental Status: mental status grossly normal Assessment & Plan Assessment & Plan (1) Cholelithiasis: Code(s): K80.20 - Calculus of gallbladder without cholecystitis without obstruction (2) Dysphagia, pharyngoesophageal phase: Code(s): R13.14 - Dysphagia, pharyngoesophageal phase (3) Chronic diarrhea: Code(s): K52.9 - Noninfective gastroenteritis and colitis, unspecified (4) GERD (gastroesophageal reflux disease): Code(s): K21.9 - Gastro-esophageal reflux disease without esophagitis Qualifiers: Esophagitis presence: without esophagitis Qualified Code(s): K21.9 - Gastro-esophageal reflux disease without esophagitis (5) Postprandial epigastric pain: Code(s): R10.13 - Epigastric pain Plan 78 YF with hypertension, asthma, anxiety disorder and multiple myeloma followed in GI for GERD and chronic diarrhea of unclear etiology. Past evaluation with colonoscopy and random biopsies were normal, celiac serologies were negative, stool wbc and culture negative, C Diff was equivocal Stool fat?and pancreatic elastase was normal. Pt was taking Revlimid (Lenalidomide) every 3 weeks for? multiple myeloma which can be associated with diarrhea and 39-49% of patient, abdominal pain in 10-12%, nausea and 11-30% and decreased appetite in 14% of patients.? ? Patient discontinued Revlimid without change in diarrhea. She was started on daratumumab faspro on 07/05. She has so far been tolerating it very well. She had last couple of treatments while she was vacationing in [place], last year, (she received week 7 on 08/23 and week 8 8 on 08/30 [address] the [address] of [address] Schuyler Hicks, at [facility] in [place].) Pamelist was added for MM on 02/14/22 Pt was advised to continue taking imodium or peptobismol prn for diarrhea. She was given a trail of pancreatic enzymes (although stool pancreatic elastase was normal) and stopped taking it since it was associated with abdominal cramps A barium swallow showed?moderate dysmotility without stricture or extrinsic mass lesion. No hiatal hernia or gastroesophageal reflux was noted. Treatment plan per Dr Muniz (Oncology): Omit her Velcade dose on Fridays, to ameliorate the toxicity. She would like to be referred for physical therapy to strengthen her legs. Will advise gentle therapy. She will continue the Decadron taper.? She will go down to 6 mg. I will follow up on the free light chain ratio, monthly to gauge her response. She will continue on the Denosumab, q 6 months. She recieved a dose on December 29. Next dose will be due in May. Follow-up in 3 week after Abd US and a Gastric Emptying study. Orders: Orders US abdomen complete 04/20/23 R10.13 - Epigastric pain NM gastric emptying study 04/20/23 R68.81 - Early satiety CDiff Gene PCR 04/20/23 K52.9 - Noninfective gastroenteritis and colitis, unspecified Medications: Changed From pantoprazole 40 mg PO DAILY 3RF To pantoprazole 40 mg PO BID 180 tabs 1RF 90 days Coding Level of Care Code Est Pt Level 4 (68925) Diagnoses Cholelithiasis K80.20 Dysphagia, pharyngoesophageal phase R13.14 Chronic diarrhea K52.9 Gastroesophageal reflux disease without esophagitis K21.9 Esophagitis presence: without esophagitis Postprandial epigastric pain R10.13 Time Spent (min) 24
[2023-04-20 08:06] VITALS: BP 133/61; PULSE 70; BMI 30.8
== END 2023-04-20 08:50 | disposition home or self-care (01) ==
PROVIDERS: PCP Internal Medicine; Visit Provider Internal Medicine Gastroenterology
DX: K80.20 Calculus of gallbladder without cholecystitis without obstruction (principal); R13.14 Dysphagia, pharyngoesophageal phase; K52.9 Noninfective gastroenteritis and colitis, unspecified; K21.9 Gastro-esophageal reflux disease without esophagitis; R10.13 Epigastric pain
CPT/HCPCS: 99214

== ENCOUNTER → 2023-04-20 07:54 | Outpatient (BNVA) | payer MEDICARE, SELFPAY | PROVIDERS: PCP Internal Medicine; Visit Provider Internal Medicine Gastroenterology | DX: K21.9 Gastro-esophageal reflux disease without esophagitis (principal); R10.13 Epigastric pain; R13.14 Dysphagia, pharyngoesophageal phase; K52.9 Noninfective gastroenteritis and colitis, unspecified; K80.20 Calculus of gallbladder without cholecystitis without obstruction | CPT/HCPCS: 99212 ==

== ENCOUNTER 2023-05-09 07:44 | Outpatient (REF) | payer MEDICARE, SELFPAY ==
--- NOTE | ~2023-05-09 | US_ITS ---
EXAMINATION: US ABDOMEN COMPLETE CLINICAL INFORMATION: Epigastric pain. COMPARISON: CT abdomen and pelvis without contrast dated 11/14/2021. Bilateral renal ultrasounds dated 06/09/2010 and 09/08/2005. TECHNIQUE: Real-time imaging of the abdominal viscera. FINDINGS: PANCREAS: Normal. ABDOMINAL AORTA: The proximal, mid, and distal segments are normal in caliber. INFERIOR VENA CAVA: Visualized portions are normal. LIVER: There is hepatomegaly, with a longitudinal span of 21.9 cm. The liver contour is normal. There is diffuse increased liver parenchymal echogenicity, with pericholecystic sparing. No focal hepatic lesion. There is no intrahepatic biliary duct dilatation seen. GALLBLADDER: Multiple layering gallstones are present. No evidence of gallbladder wall thickening or pericholecystic fluid. COMMON BILE DUCT: Normal in caliber measuring 0.4 cm in diameter. RIGHT KIDNEY: 12.1 No hydronephrosis or renal calculi. The kidney measures 12.1 cm in maximum dimension. At the interpolar aspect laterally, a 7 mm benign, simple cyst is seen, for which no imaging follow-up is recommended. LEFT KIDNEY: 11.4 No hydronephrosis or renal calculi. The kidney measures 11.4 cm in maximum dimension. At the upper pole, a 4.6 cm benign, simple cyst seen, for which no imaging follow-up is recommended. SPLEEN: Normal. The spleen measures 10.7 cm in maximum dimension. FREE FLUID: None. US/US abdomen complete IMPRESSION: 1. There is cholelithiasis. 2. There is generalized increase in hepatic echotexture, consistent with fatty infiltration or hepatocellular disease. Please correlate clinically. Characteristic pericholecystic sparing favors fatty infiltration. No focal hepatic mass or intrahepatic biliary dilatation is seen. 3. There is hepatomegaly.
== END 2023-05-09 07:45 | disposition home or self-care (01) ==
LOC: HO.HMGCX 07:44
PROVIDERS: PCP Internal Medicine; Visit Provider Internal Medicine Gastroenterology
DX: R10.13 Epigastric pain (principal)
CPT/HCPCS: 76700

== ENCOUNTER 2023-05-11 11:29 | Outpatient (AMB) | payer MEDICARE, SELFPAY ==
--- NOTE | 2023-05-11 11:32 | MHC.OFFVIS ---
Intake Vital Signs 05/11/23 11:36 Height 5 ft 3 in Weight 174 lb 9.698 oz BMI 30.9 BP 131/60 Blood Pressure Location Lt brachial Position Sitting Pulse 69 Intake Visit Reasons: 6 month follow up Intake Note: Patient presents to in office visit today in 6 months follow up of acid reflex. CC: Patient c/o diarrhea, abdominal pain, acid reflux, and bloating. She states she has noticed a reddish orange color from her stools. Careers Counsellor Required: No Accompanied by: Self / Same As Patient Allergies oxycodone [From OXYCONTIN] Allergy (Mild, Verified 05/11/23 11:39) PRURITUS, severe itching adhesive tape Allergy (Unknown, Verified 05/11/23 11:39) BLISTERS cephalexin [Keflex] Allergy (Unknown, Verified 05/11/23 11:39) hives doxycycline [DOXYCYCLINE] Adverse Reaction (Intermediate, Verified 05/11/23 11:39) STOMACH PAINS Medication List - Last Reconciled 05/11/23 by Trena Dotson MD albuterol sulfate 90 mcg/actuation (Ventolin HFA) 2 puffs inhalation Q4-6H PRN 30 days amlodipine 5 mg PO DAILY aspirin 81 mg PO DAILY atorvastatin 20 mg PO DAILY dexamethasone 6 mg PO DAILY PRN diphenoxylate-atropine 2.5-0.025 mg (Lomotil) 1 tab PO TID PRN lorazepam 0.5 mg PO BID PRN losartan 100 mg PO DAILY mecobalamin (vitamin B12) (B12 Active) 1,000 mcg PO DAILY meloxicam 15 mg PO DAILY metoprolol succinate ER 50 mg PO DAILY mirabegron ER (Myrbetriq) 50 mg PO DAILY miscellaneous medical supply 1 ea miscellaneous DAILY pantoprazole 40 mg PO BID 90 days sulfamethoxazole-trimethoprim 800-160 mg 1 tab PO DAILY Symbicort 160-4.5 mcg/actuation (budesonide-formoterol) 2 puffs PO BID NS tramadol 50 mg PO BID PRN valacyclovir (Valtrex) 500 mg PO DAILY HPI 6 month follow up HPI Details FU GI clinic visit for this 78-year-old female for FU of GERD and IBS. Patient has been followed by Dr. Bojorquez since 2014 for? nausea,? epigastric pain, heartburn, dysphagia and diarrhea She is followed by Dr Muniz in heme-onc for multiple myeloma. LABS IN [facility] :?celiac serologies were negative, stool wbc and culture negative, C Diff was equivocal IMAGING STUDIES:? 05/2023 ABD US SHOWED: 1. There is cholelithiasis. 2. There is generalized increase in hepatic echotexture, consistent with fatty infiltration or hepatocellular disease. Please correlate clinically. Characteristic pericholecystic sparing favors fatty infiltration. No focal hepatic mass or intrahepatic biliary dilatation is seen. 3. There is hepatomegaly. 11/07/21 BARIUM SWALLOW SHOWED: Esophageal caliber is normal. There is moderate dysmotility. No fixed stricture or extrinsic mass lesion demonstrated. No mucosal abnormality. No hiatal hernia. No gastroesophageal reflux observed. A barium tablet passed through the esophagus into the stomach. ENDOSCOPIC STUDIES:? 2018? EGD showed a small hiatal hernia. Same day colonoscopy was negative ? Except 1+ internal hemorrhoids.? Duodenal biopsies were normal, gastric biopsies showed mild chronic inactive gastritis and was negative for H pylori.? Random biopsies obtained from right and left colon were normal. Sep 2016? EGD AND COLONOSCOPY SHOWED: Hemorrhagic gastritis, soft changes consistent with possibilityof gastroesophageal reflux disorder - GASTRIC BIOPSIES WERE NEGATIVE FOR H PYLORI.? Mild diverticulosis and +1 internal hemorrhoids. PLAN:? Patient will be reseen in my office in 4 weeks.? Repeat colon cancer screening would be recommended for 5-7 years depending on clinical conditions Patient cc: acid reflex, upper center abdominal pain with bloating, also dysphagia on and off with solid and liquid. TODAYS VISIT: Has been having intermittent reddish orange/rust colored stool all week. Denies noticing any blood. Diarrhea has not been too bad this week - had a bout on 05/07/23 Three episodes on 05/10/23. Notes post prandial abdominal pain and bloating intermittently PAST VISITS: Complains of postprandial abdominal pain/pressure and unsure what to eat. Stomach does not feel good. Continues to have dysphagia and can have regurgitation of food into her throat (new problem) Intermittent heartburn and takes peptobismol or TUMS Continues to have loose stools - not always diarrhea Stopped writing down what she eats since she is unable to find a pattern. Takes 2 tab of immodium when she has increased diarrhea and takes another 2 tablets if she continues to have diarrhea. Takes Tramadol less than a few times a month and not daily. Decreased her treatment Velcade (Sunday treatment was stopped) due to hair loss. Has mets to the back and spine BMs are rarely formed - either mush or liquid, and sometimes orange in color and rarely diarrhea. Wt gain despite eating less - eats until she feels full. Does not eat big portions. Started taking a nutrition shake. Drinks a lot of water. Uses a heat pack on the stomach since it hurts. Notes urgency after she eats. Keeps a journal and is unable to find a pattern Sometimes she notes a little blood on the side of the stools Took some ice cream and had diarrhea after eating it Takes Lactose free milk Rarely has trouble going. PAST VISITS: Hospitalized in 03/2022 with COPD and pneumonia Notes intermittent cough usually in the am. On a steroid taper at present. Continues to have dysphagia with solids and large pills. Diarrhea is not too bad. Had an episode of gelatinous stool on 04/07/22 after she went home from the hospital Has 1 to 5 BMs a day. Takes Colestipol and 1 imodiun when she has diarrhea. Unable to identify precipitating foods. Avoids spicy foods Getting treatment for MM every 2 weeks followed by dexamethasone on Sun and . Seeing her Chiropractor for aches and pains - which is helping Stopped Creon since it was causing abdominal cramps. Notes diarrhea 2 -3 times a week - not related to treatment. Not taking colestipol due to concern for constipation. Intermittent rectal bleeding when she is constipated which she attributes to hemorrhoids. Takes Tramadol for body pains. Keeping a journal of diet and BMs Sometimes certain foods won't bother her and sometimes its a disaster Notes worsening dysphagia to liquids and solids - denies regurgitation with dysphagia episodes. Dysphagia is more often with liquids than solids. Denies coughing spells with dysphagia Broke her tooth and had nausea? due to enamel Starting to have a little problem with constipation (none since 2017) Still has intermittent diarrhea and is more manageable - taking imodium, Tums and colestipol Can have upto 7 BMs a day. Getting sinus DIEGO's. Kept a dairy of her BMs. Continues to have loose and liquid BMs. BMs are broken into lumps and bumps Eating less and gaining wt. Does not know what to eat since a lot of foods bother her Avoids salads and broccoli Stool studies were reviewed. Notes fat in the stool intermittently Continues to have intermittent diarrhea. On Revlimid (Lenalidomide)every 3 weeks - rest x 1 week - unsure if she has incrased diarrhea while on Revlimid. Can have lower abd pain, or pain can move up into the epigastrium. Has been noticing some gas over the past month. Biggest issue is her sleep since she has to get up to urinate. Her bowels do not interrupt her sleep. Can have 1-2 and upto 5 Bms a day - upto 7 times once. Concerned she may be loosing her nutrients. Takes Colestipol, imodium or peptobismol which works and diarrhea can come right back TUMS does not help. Diagnosed with Multiple Myeloma 5 yrs ago when she noted worsening fatigue. Takes Pantoprazole at night - advised by Dr Bojorquez. Takes imodium for the diarrhea. Sometimes takes peptobismol, meenakshi seltzer or TUMS for the diarrhea. She is taking colestipol once daily and takes a 2nd dose if diarrhea is bad [facility] Medical History Urinary incontinence, urge Urinary frequency Urinary urgency Pneumonia Acute exacerbation of chronic obstructive pulmonary disease Chronic cough Generalized anxiety disorder Costochondritis Dyspnea on exertion COPD (chronic obstructive pulmonary disease) Anxiety Cataract Bladder cancer GERD (gastroesophageal reflux disease) Asthma IBS (irritable bowel syndrome) Hypertension Multiple myeloma Surgical History History of esophagogastroduodenoscopy (EGD) H/O colonoscopy History of eyelid surgery History of tonsillectomy H/O wrist surgery H/O eye surgery History of arthroscopy of both knees H/O rotator cuff surgery H/O cardiac catheterization Family History Father Pancreatic cancer Diabetes Stroke Mother No problems noted. Sister Diabetes Son No problems noted. Social History Household Members: Spouse Housing: Condominium Are you a primary health care aide to a significant other at home: No Do you presently have visiting nurse or other home services: Yes (VNA) Alcohol intake: never Patient Tobacco Use Status: Former Tobacco user Tobacco use type: Cigarette e-Cigarette/Vaping Use: Never Used Second Hand Smoke Exposure: No Advance Directives Date on File: 11/11/20 service: No Current occupational status: retired Cognitive needs: No Hearing needs: No Vision needs: Yes Review of Systems Const All systems reviewed & are unremarkable except as noted in HPI and below Physical Exam Vital Signs: Last Vital Signs Pulse 69 05/11/23 11:36 BP 131/60 05/11/23 11:36 BMI result Body Mass Index 30.9 Const General: healthy appearing and no acute distress Nutritional Appearance: obese Orientation/consciousness: patient oriented x3 Limitations: no limitations HEENT Head: Yes normal to inspection Ears: hearing grossly normal bilaterally Eyes Sclerae: sclerae normal Pupils: Equal, round and reactive pupils present Neck Neck: Yes normal visual inspection Chest Chest palpation & inspection: normal inspection of the chest Resp Effort & Inspection: normal respiratory effort Auscultation: clear to auscultation bilaterally Cardio Palpation: normal PMI Rate: regular rate Rhythm: regular rhythm Heart sounds: S1 normal heart sound present, S2 normal heart sound present and no murmurs GI Palpation (GI): Soft to palpation, nontender and No hepatosplenomegaly present Auscultation: normal bowel sounds Rectal Exam - Female: deferred Skin General skin exam: no rashes or lesions noted Neuro General: patient oriented x3, gait normal and moves all extremities Cranial nerves: Yes Equal, round and reactive pupils present Psych Appearance: grossly normal Mental Status: mental status grossly normal Assessment & Plan Assessment & Plan (1) Postprandial epigastric pain: Code(s): R10.13 - Epigastric pain (2) Cholelithiasis: Code(s): K80.20 - Calculus of gallbladder without cholecystitis without obstruction (3) Dysphagia, pharyngoesophageal phase: Code(s): R13.14 - Dysphagia, pharyngoesophageal phase (4) Chronic diarrhea: Code(s): K52.9 - Noninfective gastroenteritis and colitis, unspecified (5) GERD (gastroesophageal reflux disease): Code(s): K21.9 - Gastro-esophageal reflux disease without esophagitis Qualifiers: Esophagitis presence: without esophagitis Qualified Code(s): K21.9 - Gastro-esophageal reflux disease without esophagitis Plan 78 YF with hypertension, asthma, anxiety disorder and multiple myeloma followed in GI for GERD and chronic diarrhea of unclear etiology. Past evaluation with colonoscopy and random biopsies were normal, celiac serologies were negative, stool wbc and culture negative, C Diff was equivocal Stool fat?and pancreatic elastase was normal. Pt was taking Revlimid (Lenalidomide) every 3 weeks for? multiple myeloma which can be associated with diarrhea and 39-49% of patient, abdominal pain in 10-12%, nausea and 11-30% and decreased appetite in 14% of patients.? ? Patient discontinued Revlimid without change in diarrhea. She was started on daratumumab faspro on 07/05. She has so far been tolerating it very well. She had last couple of treatments while she was vacationing in [place], last year, (she received week 7 on 08/23 and week 8 8 on 08/30 [address] the care of [address] Schuyler Hicks, at [facility] in [place].) Pamelist was added for MM on 02/14/22 Pt was advised to continue taking imodium or peptobismol prn for diarrhea. She was given a trail of pancreatic enzymes (although stool pancreatic elastase was normal) and stopped taking it since it was associated with abdominal cramps A barium swallow showed?moderate dysmotility without stricture or extrinsic mass lesion. No hiatal hernia or gastroesophageal reflux was noted. 05/09/23 Abd US showed cholelithiasis and fatty liver 05/01/[address] Muniz (Oncology): She has been referred for physical therapy to strengthen her legs. l advised gentle therapy. That is helping a lot. She will continue the Decadron taper. She will go down to 4 mg. I will follow up on the free light chain ratio, monthly to gauge her response. She will continue on the Denosumab, q 6 months. Follow-up in 3 months. Coding Level of Care Code Est Pt Level 4 (95091) Diagnoses Postprandial epigastric pain R10.13 Cholelithiasis K80.20 Dysphagia, pharyngoesophageal phase R13.14 Chronic diarrhea K52.9 Gastroesophageal reflux disease without esophagitis K21.9 Esophagitis presence: without esophagitis Time Spent (min) 23
[2023-05-11 11:36] VITALS: BP 131/60; PULSE 69; BMI 30.9
== END 2023-05-11 12:20 | disposition home or self-care (01) ==
PROVIDERS: PCP Internal Medicine; Visit Provider Internal Medicine Gastroenterology
DX: R10.13 Epigastric pain (principal); K80.20 Calculus of gallbladder without cholecystitis without obstruction; R13.14 Dysphagia, pharyngoesophageal phase; K52.9 Noninfective gastroenteritis and colitis, unspecified; K21.9 Gastro-esophageal reflux disease without esophagitis
CPT/HCPCS: 99214

== ENCOUNTER → 2023-05-11 11:29 | Outpatient (BNVA) | payer MEDICARE, SELFPAY | PROVIDERS: PCP Internal Medicine; Visit Provider Internal Medicine Gastroenterology | DX: R10.13 Epigastric pain (principal); K80.20 Calculus of gallbladder without cholecystitis without obstruction; R13.14 Dysphagia, pharyngoesophageal phase; K52.9 Noninfective gastroenteritis and colitis, unspecified; K21.9 Gastro-esophageal reflux disease without esophagitis | CPT/HCPCS: 99212 ==

== ENCOUNTER → 2023-05-16 07:41 | Outpatient (REF) | payer MEDICARE, SELFPAY ==
--- NOTE | ~2023-05-16 | NM_ITS ---
EXAMINATION: OH RADIONUCLIDE SOLID FOOD GASTRIC EMPTYING 4-HOUR STUDY CLINICAL INFORMATION: Early satiety. COMPARISON: None available. TECHNIQUE: A standard meal consisting of 4 oz of Egg Beaters brand tagged with 1000 microcuries Tc-99m Sulfur Colloid, 8 oz water and 2 slices of toast with jelly was administered orally to the patient. Images were obtained using a dual head gamma camera in the anterior and posterior projections over of the stomach immediately post ingestion and at hourly intervals up to 4 hours post ingestion. The anterior and posterior counts at each time interval were averaged using the geometric mean and expressed as percentage of the immediate post ingestion counts. FINDINGS: There is good visualization of activity in the stomach immediately post ingestion. As the study progresses, there is good clearance of activity from the stomach and visualization of progressively increasing small bowel activity. By the end of the study, there is almost no retention noted in the stomach. Retention in the stomach at each time interval was: 1 hour 72% (normal 37%-90%) 2 hours 23% (normal 30%-60%) 3 hours 2% 4 hours 2% (normal 0%-10%) OH/OH gastric emptying study IMPRESSION: Normal 4-hour solid food gastric emptying study.
== END ==
LOC: HO.NUCMED 07:41
PROVIDERS: PCP Internal Medicine; Visit Provider Internal Medicine Gastroenterology
DX: R68.81 Early satiety (principal)
CPT/HCPCS: 78264; A9541

== ENCOUNTER 2023-06-18 11:05 | Outpatient (AMB) | payer MEDICARE, SELFPAY ==
[2023-06-18 11:22] VITALS: BP 128/66; PULSE 62; O2SAT 68; BMI 30.8
--- NOTE | 2023-06-18 11:22 | MHC.OFFVIS ---
Intake Vital Signs 06/18/23 11:22 Height 5 ft 3 in Weight 174 lb 2.643 oz BMI 30.8 BP 128/66 Blood Pressure Location Lt brachial Position Sitting Pulse 62 Pulse Source Doppler Pulse Oximetry (%) 68 L Oxygen Delivery Method Room Air Intake Visit Reasons: COPD Intake Note: Patient is here for a follow up on COPD, patient has a few questions about vaccines Allergies oxycodone [From OXYCONTIN] Allergy (Mild, Verified 06/18/23 12:00) PRURITUS, severe itching adhesive tape Allergy (Unknown, Verified 06/18/23 12:00) BLISTERS cephalexin [Keflex] Allergy (Unknown, Verified 06/18/23 12:00) hives doxycycline [DOXYCYCLINE] Adverse Reaction (Intermediate, Verified 06/18/23 12:00) STOMACH PAINS Medication List - Last Reconciled 06/18/23 by Cyndy Flores MD albuterol sulfate 90 mcg/actuation (Ventolin HFA) 2 puffs inhalation Q4-6H PRN 30 days amlodipine 5 mg PO DAILY aspirin 81 mg PO DAILY atorvastatin 20 mg PO DAILY benzonatate 200 mg PO BID-TID PRN dexamethasone 6 mg PO DAILY PRN diphenoxylate-atropine 2.5-0.025 mg (Lomotil) 1 tab PO TID PRN hydrocodone-chlorpheniramine 10-8 mg/5 mL 5 mL PO Q12H PRN lorazepam 0.5 mg PO BID PRN losartan 100 mg PO DAILY mecobalamin (vitamin B12) (B12 Active) 1,000 mcg PO DAILY meloxicam 15 mg PO DAILY metoprolol succinate ER 50 mg PO DAILY mirabegron ER (Myrbetriq) 50 mg PO DAILY miscellaneous medical supply 1 ea miscellaneous DAILY pantoprazole 40 mg PO BID 90 days sulfamethoxazole-trimethoprim 800-160 mg 1 tab PO DAILY Symbicort 160-4.5 mcg/actuation (budesonide-formoterol) 2 puffs PO BID NS tramadol 50 mg PO BID PRN valacyclovir (Valtrex) 500 mg PO DAILY Do you need a note to return to daycare/school/sports/work: No HPI COPD HPI Details Moni is 78 years old very pleasant female, comes to see me for her COPD/asthma after 4 months. Breathing alcantar has remained very stable without any acute exacerbation. Every now and then she gets some tight feeling in the upper chest and in the neck area especially after her chemotherapy, This is not related to her asthma, she does get warm feeling in her body after the chemotherapy and this may be actually due to dexamethasone. Anyway her breathing has remained very stable and she is really not using her inhalers at this time. SHE DOES NOT NEED TO USE SYMBICORT AND ALSO HAS NOT HAD A NEED TO USE VENTOLIN. She has talked to me about lot of issues not related to the lungs, mainly related to her multiple myeloma, current chemotherapy , minor side effects, Mild anxiety, and also talked about vaccinations that she should get. [facility] Medical History Urinary incontinence, urge Urinary frequency Urinary urgency Pneumonia Acute exacerbation of chronic obstructive pulmonary disease Chronic cough Generalized anxiety disorder Costochondritis Dyspnea on exertion COPD (chronic obstructive pulmonary disease) Anxiety Cataract Bladder cancer GERD (gastroesophageal reflux disease) Asthma IBS (irritable bowel syndrome) Hypertension Multiple myeloma Surgical History History of esophagogastroduodenoscopy (EGD) H/O colonoscopy History of eyelid surgery History of tonsillectomy H/O wrist surgery H/O eye surgery History of arthroscopy of both knees H/O rotator cuff surgery H/O cardiac catheterization Family History Father Pancreatic cancer Diabetes Stroke Mother No problems noted. Sister Diabetes Son No problems noted. Social History Household Members: [facility] Are you a primary home care associate to a significant other at home: No Do you presently have visiting nurse or other home services: Yes (VNA) Alcohol intake: never Patient Tobacco Use Status: Former Tobacco user Tobacco use type: Cigarette e-Cigarette/Vaping Use: Never Used Second Hand Smoke Exposure: No Advance Directives Date on File: 11/11/20 service: No Current occupational status: retired Cognitive needs: No Hearing needs: No Vision needs: Yes Review of Systems Const All systems reviewed & are unremarkable except as noted in HPI and below Eyes Reports no additional complaints ENT Reports no additional complaints, Denies nasal congestion and Denies nasal discharge Card Reports chest pain (Intermittent nonspecific), Denies irregular heart rhythm and Denies leg edema Resp Reports as per HPI and Reports cough GI Reports heartburn (Controlled with Protonix) Reports no additional complaints Musc Reports no additional complaints Skin/Breast Reports system reviewed and no additional complaints, except as documented Neuro Reports no additional complaints Psych Reports anxiety Physical Exam Vital Signs: Last Vital Signs Pulse 62 06/18/23 11:22 BP 128/66 06/18/23 11:22 Pulse Ox 68 L 06/18/23 11:22 Oxygen Delivery Method Room Air 06/18/23 11:22 BMI result Body Mass Index 30.8 Const General: no acute distress, alert and awake Orientation/consciousness: patient oriented x3 HEENT Head: Yes normal to inspection General nose exam: No nasal polyps present and No nasal discharge present Face and sinus: Yes sinuses nontender Mouth: oropharynx normal Throat: Yes posterior oropharynx normal Eyes General: appearance normal, both eyes and all related structures Neck Neck: Yes normal visual inspection, Yes no lymphadenopathy, Yes trachea midline and Yes no JVD Thyroid: Thyroid normal Chest Chest palpation & inspection: normal inspection of the chest, normal palpation of entire chest wall and no tenderness Resp Other: Percussion note resonant, breath sounds are distant, but no wheezes rhonchi or crepitations are heard Cardio Palpation: normal PMI Rate: regular rate Rhythm: regular rhythm Heart sounds: no gallops and no murmurs GI Palpation (GI): Soft to palpation, nontender, No hepatosplenomegaly present and no masses Auscultation: normal bowel sounds Back/Spine/Pelvis Thoracic/Lumbar Spine: thoracic and lumbar spine normal to inspection Skin General skin exam: no rashes or lesions noted Neuro General: patient oriented x3 and no focal motor deficits Cranial nerves: Yes CN's II-XII intact bilaterally Extrem General: Yes normal to inspection, Yes no clubbing, cyanosis or edema and Yes no calf tenderness Psych Appearance: grossly normal and well kempt Speech and movement: Normal speech and movement present Assessment & Plan Assessment & Plan (1) COPD (chronic obstructive pulmonary disease): Comment: She does have evidence of mild to moderate degree of CHRONIC OBSTRUCTIVE PULMONARY DISEASE, in addition to symptoms of mild bronchial asthma. ,At present well controlled even without using Symbicort. This is because she is on dexamethasone 4 mg a day. Advised to use albuterol HFA 2 puffs Q 4-6 hours only p.r.n.. Code(s): J44.9 - Chronic obstructive pulmonary disease, unspecified (2) Dyspnea on exertion: Comment: Mild to moderate, multifactorial, currently at a much less level. Code(s): R06.00 - Dyspnea, unspecified (3) Anxiety: Comment: She has multifactorial anxiety, and mild depression but is able to cope with that . She does use trazodone 50 mg at bedtime to help her sleep. And uses Lorazepam 0.5 mg PRN . She needs lot of psychological support And also she feels better after venting out, most of her complaints. Code(s): F41.9 - Anxiety disorder, unspecified Coding Level of Care Code Est Pt Level 3 (02092) Diagnoses COPD (chronic obstructive pulmonary disease) J44.9 Dyspnea on exertion R06.00 Anxiety F41.9
== END 2023-06-18 11:56 | disposition home or self-care (01) ==
PROVIDERS: PCP Internal Medicine; Visit Provider Internal Medicine
DX: J44.9 Chronic obstructive pulmonary disease, unspecified (principal); R06.00 Dyspnea, unspecified; F41.9 Anxiety disorder, unspecified
CPT/HCPCS: 99213

== ENCOUNTER → 2023-06-18 11:05 | Outpatient (BNVA) | payer MEDICARE, SELFPAY | PROVIDERS: PCP Internal Medicine; Visit Provider Internal Medicine | DX: J44.9 Chronic obstructive pulmonary disease, unspecified (principal); R06.00 Dyspnea, unspecified; F41.9 Anxiety disorder, unspecified | CPT/HCPCS: 99212 ==

== ENCOUNTER 2023-07-11 14:00 | Outpatient (RCR) | payer MEDICARE, SELFPAY ==
--- NOTE | 2023-04-13 15:50 | MHC.PT.EP ---
[facility] [place] [facility] [place] [facility] [place] [facility] [address] [phone] F: [phone] F: [phone] F: [phone] F: [phone] Physical Therapy Plan of Care Date of Evaluation: Date of Surgery: N/A Diagnosis: Bilateral primary osteoarthritis of hip Assessment: Pt is a pleasant 78yo F with PMH including multiple myeloma who presents to PT with B hip pain. She presents to PT with current impairments in pain, decreased LE strength, decreased core stabilization, decreased balance, and impaired gait. She is limited functionally by prolonged standing, walking, laying on her back, and getting in/out of bed. She is a good candidate for skilled PT in order to address current impairments to maximize function and management of symptoms. She is recommended to be seen 2x/week for 4 weeks and will be reassessed at that time. Frequency and Duration: The patient will be seen 2x/week for 4 weeks Short Term Goals: Pt will be I with HEP to promote self management of symptoms Pt will improve B quad strength by 1/2 grade Nutrition Faculty Member Goals: Pt will improve B quad strength to at least 4+/5 to assist with standing and walking Pt will tolerate standing and walking > 15 minutes with pain < 4/10 to assist with community ambulation Pt will demonstrate improvements in function as evidenced by statistically significant improvement in LEFI outcome measure Treatment Plan: Modalities to reduce pain, spasms and effusion. Manual therapy to restore motion and function. Therapeutic exercise to improve strength and flexibility. Neuromuscular re-education for posture and balance. Therapeutic activities to return to functional activities of daily living. Electronically signed by: Anat Hicks, PT, DPT Please sign and return to therapist. Thank you for your referral.
[2023-05-08 19:39] LABS: CDiff Gene PCR NEGATIVE (Negative)
--- NOTE | 2023-12-10 11:05 | MHC.PT.DC ---
[facility] [place] Office [place] Office [place] Office [address] [place] [address] [phone] F: [phone] F: [phone] F: [phone] F: [phone] Physical Therapy Discharge Report Diagnosis: Bilateral primary osteoarthritis of hip Date of Surgery: N/A Date of Evaluation: 04/11/23 Date of Discharge: 12/10/23 Treatments to Date: 19 Cancellations to Date: No Shows to Date: Discharge Status: Improved Function Independent with [facility]P Discharge Summary: Pt was seen for PT from 04/11/23-07/11/23. Her last attended and scheduled appointment was 07/11/23. She was independent with [facility]P and was discharged to [facility] on 07/11/23 Electronically signed by: Anat Hicks, PT, DPT Please sign and return to therapist. Thank you for your referral.
== END 2023-12-10 11:05 | disposition home or self-care (01) ==
LOC: HO.PT 14:00
PROVIDERS: Internal Medicine Gastroenterology; PCP Internal Medicine; Visit Provider Internal Medicine Medical Oncology
DX: M16.0 Bilateral primary osteoarthritis of hip (principal)
CPT/HCPCS: 87493; 97110; 97112; 97163; 97530

== ENCOUNTER 2023-07-19 14:34 | Outpatient (AMB) | payer MEDICARE, SELFPAY ==
[2023-07-19 14:35] VITALS: BP 130/62; PULSE 63; O2SAT 99; BMI 30.1
--- NOTE | 2023-07-19 14:35 | A.OFFPC_ITS ---
Vital Signs 07/19/23 14:35 Height 5 ft 3 in Weight 170 lb BMI 30.1 BP 130/62 Blood Pressure Location Lt brachial Position Sitting Pulse 63 Pulse Source Pulse Oximeter Pulse Oximetry (%) 99 Oxygen Delivery Method Room Air Intake Visit Reasons: MM Direct Sales Consultant Required: No Fitness And Wellness Manager: Not Required per policy Accompanied by: Self / Same As Patient Allergies oxycodone [From OXYCONTIN] Allergy (Mild, Verified 07/19/23 14:36) PRURITUS, severe itching adhesive tape Allergy (Unknown, Verified 07/19/23 14:36) BLISTERS cephalexin [Keflex] Allergy (Unknown, Verified 07/19/23 14:36) hives doxycycline [DOXYCYCLINE] Adverse Reaction (Intermediate, Verified 07/19/23 14:36) STOMACH PAINS Tobacco use date assessed: 09/28/22 Fall risk assessment: No Falls in past year Last assessed Fall Risk: 07/19/23 Dental Screening Dental Screen Date: 07/19/23 Did you have a dental visit in the last 12 months?: Yes Did you have a dental problem in the last 6 months where you did not have access to dental care?: No Was dental information given to patient?: Patient has dentist HPI MM HPI Details 78-year-old obese female with multiple m yeloma hypertension GERD bilateral carotid artery stenosis hypercholesterolemia COPD generalized anxiety disorder coming in for follow-up. Last seen in April 2023. Last carotid ultrasound December 2022 mammogram is up-to-date. With hip arthritis patient is sent for physical therapy. As for hematology oncology follow-up June 2023 on Decadron denosumab. Patient has also followed up with Pulmonary for the COPD controlled not using the Symbicort she is on steroids. Patient also follows up with Gastroenterology had an nuclear medicine test for gastric emptying which came up negative on pantoprazole Imodium p.r.n. for diarrhea. rsv, cOVID AND FLU SHOT GIVRN PFSH Medical History (Updated 07/19/23 @ 15:12 by Markos James MD) Chronic diarrhea Urinary incontinence, urge Urinary frequency Urinary urgency Pneumonia Acute exacerbation of chronic obstructive pulmonary disease Chronic cough Generalized anxiety disorder Costochondritis Dyspnea on exertion COPD (chronic obstructive pulmonary disease) Anxiety Cataract Bladder cancer GERD (gastroesophageal reflux disease) Asthma IBS (irritable bowel syndrome) Hypertension Multiple myeloma Surgical History History of esophagogastroduodenoscopy (EGD) H/O colonoscopy History of eyelid surgery History of tonsillectomy H/O wrist surgery H/O eye surgery History of arthroscopy of both knees H/O rotator cuff surgery H/O cardiac catheterization Family History Father Pancreatic cancer Diabetes Stroke Mother No problems noted. Sister Diabetes Son No problems noted. Social History Household Members: Spouse [facility] Are you a primary care management associate to a significant other at home: No Do you presently have visiting nurse or other home services: Yes ([facility]) Alcohol intake: never Patient Tobacco Use Status: Former Tobacco user Tobacco use type: Cigarette e-Cigarette/Vaping Use: Never Used Second Hand Smoke Exposure: No Advance Directives Date on File: 11/11/20 service: No Current occupational status: retired Cognitive needs: No Hearing needs: No Vision needs: Yes Questionnaire PHQ-9 Over the last 2 weeks, how often have you been bothered by any of the following problems? 1. Little interest or pleasure in doing things: not at all 2. Feeling down, depressed, or hopeless: not at all 3. Trouble falling or staying asleep, or sleeping too much: not at all 4. Feeling tired or having little energy: not at all 5. Poor appetite or overeating: not at all 6. Feeling bad about yourself - or that you are a failure or have let yourself or your family down: not at all 7. Trouble concentrating on things, such as reading the newspaper or watching t elevision: not at all 8. Moving or speaking so slowly that other people could have noticed. Or the opposite - being so fidgety or restless that you have been moving around a lot more than usual: not at all 9. Thoughts that you would be better off or of hurting yourself in some way: not at all Total score: 0 Depression Screening Interpretation: Negative Depression Screening Done: Yes Source: Developed by Drs. Ian Moss, Moni Maharaj, Usama Garces and colleagues, with an educational jaylon from [employer]. Thrive Questionnaire Date Thrive assessed: 09/28/22 AUDIT C Alcohol Use Questionnaire (AUDIT-C) 1. How often do you have a drink containing alcohol?: Never 2. How many drinks containing alcohol do you have on a typical day when you are drinking?: 1 or 2 3. How often do you have six or more drinks on one occasion?: Never Total Score: 0 Score Reviewed/Action Taken: No [place]-7 AMB Questionnaire [place]-7 Date [place] - 7 assessed: 09/28/22 Source: Developed by Drs. Ian oMss, Moni Maharaj, Usama Garces and colleagues, with an educational jaylon from [employer]. Physical exam (Primary Care) Vital Signs: Last Vital Signs Pulse 63 07/19/23 14:35 BP 130/62 07/19/23 14:35 Pulse Ox 99 07/19/23 14:35 Oxygen Delivery Method Room Air 07/19/23 14:35 BMI result Body Mass Index 30.1 Tobacco/Smoking Status: Tobacco use Status Tobacco use date assessed 09/28/22 07/19/23 14:36 Patient Tobacco Use Status Former Tobacco user 07/19/23 14:36 Tobacco use type Cigarette 07/19/23 14:36 e-Cigarette/Vaping Use Never Used 07/19/23 14:36 PHQ-9: PHQ-9 Score PHQ-9: Total score 0 07/19/23 14:36 Depression Screening Interpretation: Negative Thrive Assessment: Date of Thrive Assessment Date Thrive assessed 09/28/22 07/19/23 14:36 Const General: alert; No acute distress Eyes Conjunctivae: conjunctivae normal Resp Auscultation: clear to auscultation bilaterally Cardio Rate: regular rate Rhythm: regular rhythm GI Inspection: Yes normal to inspection Extrem General: Yes normal to inspection and No edema Assessment and Plan Assessment & Plan (1) Multiple myeloma: Comment: Most of her complaints, her pertaining to her multiple myeloma. She is relatively happy that the current med ( Velcade ) is working better . Code(s): C90.00 - Multiple myeloma not having achieved remission Qualifiers: Multiple myeloma remission status: unspecified Qualified Code(s): C90.00 - Multiple myeloma not having achieved remission Plan: Continue to follow-up with Hematology-Oncology for the treatment (2) Hypertension: Code(s): I10 - Essential (primary) hypertension Qualifiers: Hypertension type: essential hypertension Qualified Code(s): I10 - Essential (primary) hypertension Plan: Continue with blood pressure medication. Decrease salt intake and exercise on amlodipine 5 mg once a day losartan 100 mg once a day and metoprolol 50 mg once a day (3) GERD (gastroesophageal reflux disease): Code(s): K21.9 - Gastro-esophageal reflux disease without esophagitis Qualifiers: Esophagitis presence: without esophagitis Qualified Code(s): K21.9 - Gastro-esophageal reflux disease without esophagitis Plan: Avoid the foods that causes that usually spicy foods, tomato products, juices, coffee, soda and foods that your sensitive to. After eating do not lie down, allow 3-4 hours before in lie down. And keep the head of bed above 30 degrees to avoid the acid from going up. (4) Hypercholesterolemia: Code(s): E78.00 - Pure hypercholesterolemia, unspecified Plan: Avoid fried foods, chicken skin, eggs, butter margarine, pastries and meat. Be it pork or beef they have a lot of cholesterol LDL goal of less than 130 and triglyceride of less than 150 on atorvastatin 20 mg once a day (5) Chronic diarrhea: Code(s): K52.9 - Noninfective gastroenteritis and colitis, unspecified Plan: Workup has been negative advised to take Imodium as needed (6) COPD (chronic obstructive pulmonary disease): Comment: She does have evidence of mild to moderate degree of CHRONIC OBSTRUCTIVE PULMONARY DISEASE, in addition to symptoms of mild bronchial asthma. ,At present well controlled even without using Symbicort. This is because she is on dexamethasone 4 mg a day. Advised to use albuterol HFA 2 puffs Q 4-6 hours only p.r.n.. Code(s): J44.9 - Chronic obstructive pulmonary disease, unspecified Plan: Stable/controlled may use albuterol as needed as patient is on steroids. (7) Generalized anxiety disorder: Code(s): F41.1 - Generalized anxiety disorder Plan: Continue with present medication Orders: Orders Complete Blood Count Auto Diff Today E78.00 - Pure hypercholesterolemia, unspecified Comprehensive Met. Panel Today E78.00 - Pure hypercholesterolemia, unspecified Lipid Panel Today E78.00 - Pure hypercholesterolemia, unspecified Vitamin B12 and Folate Today E78.00 - Pure hypercholesterolemia, unspecified Free T4 (Free Thyroxine) Today E78.00 - Pure hypercholesterolemia, unspecified Thyroid Stimulating Hormone Today E78.00 - Pure hypercholesterolemia, unspecified Magnesium Today E78.00 - Pure hypercholesterolemia, unspecified Coding Level of Care Code Est Pt Level 4 (56433) Diagnoses Multiple myeloma, remission status unspecified C90.00 Multiple myeloma remission status: unspecified Essential hypertension I10 Hypertension type: essential hypertension Gastroesophageal reflux disease without esophagitis K21.9 Esophagitis presence: without esophagitis Hypercholesterolemia E78.00 Chronic diarrhea K52.9 COPD (chronic obstructive pulmonary disease) J44.9 Generalized anxiety disorder F41.1 Additional Codes PHQ-9 - 05722 - PHQ-9 Billing: ([id number])
== END 2023-07-19 15:23 | disposition home or self-care (01) ==
PROVIDERS: PCP Internal Medicine; Visit Provider Internal Medicine
DX: J44.9 Chronic obstructive pulmonary disease, unspecified (principal); C90.00 Multiple myeloma not having achieved remission; I10 Essential (primary) hypertension; K21.9 Gastro-esophageal reflux disease without esophagitis; E78.00 Pure hypercholesterolemia, unspecified; K52.9 Noninfective gastroenteritis and colitis, unspecified; F41.1 Generalized anxiety disorder
CPT/HCPCS: 99214

== ENCOUNTER 2023-08-14 08:55 | Outpatient (REF) | payer MEDICARE, SELFPAY ==
--- NOTE | ~2023-08-14 | XR_ITS ---
EXAMINATION: XR KNEE AP STANDING CLINICAL INFORMATION: Pain COMPARISON: None available. TECHNIQUE: AP bilateral standing view of the knees was obtained. XR/XR knee standing BI FINDINGS/IMPRESSION: * Valgus angulation of the right knee with advanced osteoarthritis predominantly involving the medial compartment where there is near-complete loss of joint space and medial and lateral compartment osteophytes. * Valgus angulation of the left knee with lateral subluxation of the tibia with respect to the femoral condyles and advanced osteoarthritis worse involving the medial compartment where there is near-complete loss of joint space and medial and lateral compartment osteophytes. * No acute osseous or soft tissue abnormality appreciated on this limited single view.
== END 2023-08-14 08:56 | disposition home or self-care (01) ==
LOC: HO.XRAY 08:55
PROVIDERS: PCP Internal Medicine; Visit Provider Internal Medicine
DX: M25.561 Pain in right knee (principal); M25.562 Pain in left knee
CPT/HCPCS: 73565

== ENCOUNTER 2023-08-22 15:10 | Outpatient (AMB) | payer MEDICARE, SELFPAY ==
--- NOTE | 2023-08-22 15:53 | AM.OFFWIN_ITS ---
Intake Vital Signs 08/22/23 15:56 BP 106/60 Blood Pressure Location Lt brachial Position Sitting Pulse 84 Pulse Source Pulse Oximeter Temp 98.8 F Temp Source Oral Pulse Oximetry (%) 90 L Oxygen Delivery Method Room Air Intake Visit Reasons: EST/SOB (lobby masked) Intake Note: Pt is here today for a walk in visit. Pt c/o SOB. Pt states that DR. Muniz her Oncologist put her on zpak and she is on Bactrim. Pt states that her chest feels heavy and she has been coughing and her chest hurts. Patient Tobacco Use Status: Former Tobacco user Allergies oxycodone [From OXYCONTIN] Allergy (Mild, Verified 08/22/23 16:26) PRURITUS, severe itching adhesive tape Allergy (Unknown, Verified 08/22/23 16:26) BLISTERS cephalexin [Keflex] Allergy (Unknown, Verified 08/22/23 16:26) hives doxycycline [DOXYCYCLINE] Adverse Reaction (Intermediate, Verified 08/22/23 16:26) STOMACH PAINS Medication List - Last Reconciled 08/22/23 by Gorge Valencia MD albuterol sulfate 90 mcg/actuation (Ventolin HFA) 2 puffs inhalation Q4-6H PRN 30 days amlodipine 5 mg PO DAILY aspirin 81 mg PO DAILY atorvastatin 20 mg PO DAILY azithromycin (Zithromax Z-Jaylan) 250 mg PO DAILY benzonatate 200 mg PO BID-TID PRN dexamethasone 6 mg PO DAILY PRN diphenoxylate-atropine 2.5-0.025 mg (Lomotil) 1 tab PO TID PRN diphenoxylate-atropine 2.5-0.025 mg 1 tab PO DAILY PRN hydrocodone-acetaminophen 5-325 mg 1 tab PO Q4H PRN hydrocodone-chlorpheniramine 10-8 mg/5 mL 5 mL PO Q12H PRN lorazepam 0.5 mg PO BID PRN losartan 100 mg PO DAILY mecobalamin (vitamin B12) (B12 Active) 1,000 mcg PO DAILY meloxicam 15 mg PO DAILY metoprolol succinate ER 50 mg PO DAILY mirabegron ER (Myrbetriq) 50 mg PO DAILY miscellaneous medical supply 1 ea miscellaneous DAILY pantoprazole 40 mg PO BID 90 days sulfamethoxazole-trimethoprim 800-160 mg 1 tab PO DAILY Symbicort 160-4.5 mcg/actuation (budesonide-formoterol) 2 puffs PO BID NS tramadol 50 mg PO BID PRN valacyclovir (Valtrex) 500 mg PO DAILY valacyclovir 500 mg PO DAILY HPI EST/SOB (lobby masked) HPI Details 78-year-old female presents to the [facility] for a sick visit. Patient has history of multiple myeloma and had chemotherapy last on Sunday. Subsequently she has been having a cough and shortness of breath. Her oncologist had put her on Zithromax and today's date 3 of the same. She was to go to [place] yesterday but due to the heaviness in the chest hand cough did not proceed. No fevers or chills. No nausea or vomiting. [facility] Medical History (Updated 08/17/23 @ 18:16 by Markos James MD) Chronic diarrhea Urinary incontinence, urge Urinary frequency Urinary urgency Pneumonia Acute exacerbation of chronic obstructive pulmonary disease Chronic cough Generalized anxiety disorder Costochondritis Dyspnea on exertion COPD (chronic obstructive pulmonary disease) Anxiety Cataract Bladder cancer GERD (gastroesophageal reflux disease) Asthma IBS (irritable bowel syndrome) Hypertension Multiple myeloma Surgical History History of esophagogastroduodenoscopy (EGD) H/O colonoscopy History of eyelid surgery History of tonsillectomy H/O wrist surgery H/O eye surgery History of arthroscopy of both knees H/O rotator cuff surgery H/O cardiac catheterization Family History Father Pancreatic cancer Diabetes Stroke Mother No problems noted. Sister Diabetes Son No problems noted. Social History Household Members: Spouse Housing: Condominium Are you a primary intensive care specialist to a significant other at home: No Do you presently have visiting nurse or other home services: Yes ([facility]) Alcohol intake: never Patient Tobacco Use Status: Former Tobacco user Tobacco use type: Cigarette e-Cigarette/Vaping Use: Never Used Second Hand Smoke Exposure: No Advance Directives Date on File: 11/11/20 service: No Current occupational status: retired Cognitive needs: No Hearing needs: No Vision needs: Yes Physical Exam Vital Signs: Last Vital Signs Temp 98.8 F 08/22/23 15:56 Pulse 84 08/22/23 15:56 BP 106/60 08/22/23 15:56 Pulse Ox 90 L 08/22/23 15:56 Oxygen Delivery Method Room Air 08/22/23 15:56 Const General: cooperative and healthy appearing Nutritional Appearance: well nourished Orientation/consciousness: patient oriented x3 Limitations: no limitations HEENT Head: Yes normal to inspection Eyes General: appearance normal, both eyes and all related structures Neck Neck: Yes normal visual inspection Chest Chest palpation & inspection: normal palpation of entire chest wall Resp Other: Scattered wheeze and crackles bilaterally. Effort & Inspection: normal respiratory effort Neuro General: patient oriented x3 Assessment & Plan Assessment & Plan (1) Cough: Code(s): R05.9 - Cough, unspecified Plan: Patient's blood pressure is low, she is on antibiotics. Continues to complain of congestion in the chest. X-rays show increased vascular markings. Patient was referred to the ER for blood work. She is also immunocompromised and may require admission to the hospital. Triage nurse informed of patients arrival. Orders: Orders XR chest 2V Today R05.9 - Cough, unspecified Coding Level of Care Code Est Pt Level 4 (91001) Diagnoses Cough R05.9
[2023-08-22 15:56] VITALS: BP 106/60; PULSE 84; TEMP 37.1; O2SAT 90
== END 2023-08-22 17:08 | disposition home or self-care (01) ==
PROVIDERS: PCP Internal Medicine; Visit Provider Internal Medicine
DX: R05.9 Cough, unspecified (principal)
CPT/HCPCS: 99214

== ENCOUNTER 2023-08-22 16:23 | Outpatient (REF) | payer MEDICARE, SELFPAY ==
--- NOTE | ~2023-08-22 | XR_ITS ---
EXAMINATION: XR CHEST CLINICAL INFORMATION: Cough. COMPARISON: Chest 04/18/2023 TECHNIQUE: 2 views of the chest were obtained. FINDINGS: Lungs are well-expanded without any acute pneumonic process. There is no pleural effusion or pleural thickening. Heart size and pulmonary vascularity is normal. There is sclerotic density seen involving some of the ribs bilaterally, question callus from old fractures. There is an expansile lytic lesion left scapula, stable. Patient has known remote history of multiple myeloma XR/XR chest 2V IMPRESSION: No acute cardiopulmonary process. Several sclerotic with areas may represent healing rib fractures. Lytic expansile lesion left scapula is stable to several chest x-rays dating to 09/18/2019.
== END 2023-08-22 16:24 | disposition home or self-care (01) ==
LOC: HO.HMGCX 16:23
PROVIDERS: Visit Provider Internal Medicine
DX: Z13.89 Encounter for screening for other disorder (principal)
CPT/HCPCS: 71046

== ENCOUNTER 2023-08-22 17:04 | Emergency (ER) | payer MEDICARE, SELFPAY ==
[2023-08-22 17:08] VITALS: BP 103/50; PULSE 79; RESP 19; TEMP 36.8; O2SAT 97; BMI 30.4
--- NOTE | 2023-08-22 17:14 | ED.GENADULT ---
HPI - General Adult General Chief complaint: Upper Respiratory Symptoms Stated complaint: low blood pressure, needs lab work per UC Time Seen by Provider: 08/22/23 17:52 Source: patient, RN notes reviewed and old records reviewed Mode of arrival: ambulatory Limitations: no limitations History of Present Illness HPI narrative: 78-year-old female with past medical history significant for multiple myeloma, COPD presents for evaluation of cough, shortness of breath Patient reports her symptoms started 5 days ago A she reports increased weakness, fatigue, cough and shortness of breath She followed up with urgent care earlier today who ordered chest x-ray Patient states that she was told everything looks good. She was encouraged to continue taking her dexamethasone She states that she takes dexamethasone 4 mg every other week chronically due to her history of multiple myeloma She also takes Bactrim double strength 3 times a week Patient states that her doctor recently for her on a Z-Jaylan on Sunday due to the increased symptoms Patient reports that today she was supposed to fly to [place] but her symptoms were worsening and she was unable to fly prompting her to come to the ER today. She endorses increased wheezing Related Data Home Medications Medication Instructions Recorded Confirmed tramadol 50 mg tablet 50 mg PO BID PRN Pain 12/03/20 06/18/23 mecobalamin (vitamin B12) 1,000 1,000 mcg PO DAILY 12/30/20 06/18/23 mcg chewable tablet (B12 Active) aspirin 81 mg tablet,delayed 81 mg PO DAILY 01/19/22 06/18/23 release mirabegron 50 mg tablet,extended 50 mg PO DAILY 11/23/22 06/18/23 release 24 hr (Myrbetriq) dexamethasone 4 mg tablet 6 mg PO DAILY PRN chemo therapy 04/12/23 06/18/23 assistance Previous Rx's Medication Instructions Recorded albuterol sulfate 90 mcg/actuation 2 puff inhalation Q4-6H PRN 09/21/21 aerosol inhaler (Ventolin HFA) shortness of breath or wheezing 30 days #8.5 grams miscellaneous medical supply 1 ea miscellaneous DAILY #1 ea 04/11/22 valacyclovir 500 mg tablet 500 mg PO DAILY #90 tabs 06/19/22 (Valtrex) amlodipine 5 mg tablet 5 mg PO DAILY #90 caps 10/30/22 Symbicort 160 mcg-4.5 2 puff PO BID #10.2 grams 11/06/22 mcg/actuation HFA aerosol inhaler (budesonide-formoterol) sulfamethoxazole 800 1 tab PO DAILY #30 tabs 12/21/22 mg-trimethoprim 160 mg tablet diphenoxylate-atropine 2.5 1 tab PO TID PRN Diarrhea #50 tabs 12/26/22 mg-0.025 mg tablet (Lomotil) meloxicam 15 mg tablet 15 mg PO DAILY #90 tabs 03/05/23 pantoprazole 40 mg tablet,delayed 40 mg PO BID 90 days #180 tabs 04/20/23 release losartan 100 mg tablet 100 mg PO DAILY #90 tabs 05/10/23 metoprolol succinate 50 mg 50 mg PO DAILY #90 tabs 05/10/23 tablet,extended release 24 hr benzonatate 200 mg capsule 200 mg PO BID-TID PRN cough #30 06/08/23 caps hydrocodone 10 mg-chlorpheniramine 5 ml PO Q12H PRN cold symptoms #70 06/08/23 8 mg/5 mL oral susp extend.rel 12hr mL valacyclovir 500 mg tablet 500 mg PO DAILY #90 tabs 06/19/23 lorazepam 0.5 mg tablet 0.5 mg PO BID PRN Anxiety #50 tabs 07/24/23 atorvastatin 20 mg tablet 20 mg PO DAILY #90 tabs 07/25/23 diphenoxylate-atropine 2.5 1 tab PO DAILY PRN Diarrhea #60 08/03/23 mg-0.025 mg tablet tabs hydrocodone 5 mg-acetaminophen 325 1 tab PO Q4H PRN Breakthrough 08/17/23 mg tablet Pain, Moderate #50 tabs azithromycin 250 mg tablet 250 mg PO DAILY #6 tabs 08/20/23 (Zithromax Z-Jaylan) Allergies Allergy/AdvReac Type Severity Reaction Status Date / Time oxycodone [From OXYCONTIN] Allergy Mild PRURITUS, Verified 08/22/23 16:26 severe itching adhesive tape Allergy Unknown BLISTERS Verified 08/22/23 16:26 cephalexin [Keflex] Allergy Unknown hives Verified 08/22/23 16:26 doxycycline [DOXYCYCLINE] AdvReac Intermediate STOMACH Verified 08/22/23 16:26 PAINS Review of Systems Constitutional: Constitutional: Denies chills, Reports fatigue, Denies fever(s), Denies headache(s), Reports malaise and Reports weakness ENT: Denies headache(s) Cardiovascular: Cardiovascular: Reports chest pain (while coughing) and Reports dyspnea Respiratory: Respiratory: Reports chest congestion, Reports cough, Reports pain with cough, Reports dyspnea and Reports wheezing Gastrointestinal: Gastrointestinal: Denies abdominal pain, Denies nausea and Denies vomiting Musculoskeletal: Musculoskeletal: Denies back pain Integumentary/Breasts: Skin/Breast: Denies rash Neurologic: Denies headache(s) and Reports weakness Endocrine: Endocrine: Reports fatigue Allergic/Immunologic: Allergic/Immunologic: Reports wheezing [facility] Past Medical History Medical History (Updated 08/22/23 @ 18:43 by Terrance Vazquez) Chronic diarrhea Urinary incontinence, urge Urinary frequency Urinary urgency Pneumonia Acute exacerbation of chronic obstructive pulmonary disease Chronic cough Generalized anxiety disorder Costochondritis Dyspnea on exertion COPD (chronic obstructive pulmonary disease) Anxiety Cataract Bladder cancer GERD (gastroesophageal reflux disease) Asthma IBS (irritable bowel syndrome) Hypertension Multiple myeloma Surgical History History of esophagogastroduodenoscopy (EGD) H/O colonoscopy History of eyelid surgery History of tonsillectomy H/O wrist surgery H/O eye surgery History of arthroscopy of both knees H/O rotator cuff surgery H/O cardiac catheterization Family History Family History Father Pancreatic cancer Diabetes Stroke Mother No problems noted. Sister Diabetes Son No problems noted. Social History Social History Household Members: [facility] Are you a primary out of school hours care worker to a significant other at home: No Do you presently have visiting nurse or other home services: Yes (VNA) Alcohol intake: never Patient Tobacco Use Status: Former Tobacco user Tobacco use type: Cigarette e-Cigarette/Vaping Use: Never Used Second Hand Smoke Exposure: No Advance Directives: Yes Advance Directives on File: Yes Advance Directives Date on File: 07/20/23 service: No Current occupational status: retired Cognitive needs: No Hearing needs: No Vision needs: Yes Physical Exam ED Vital Signs: Vital Signs - 24 hr 08/22/23 17:08 08/22/23 17:49 Temperature 98.3 F Pulse Rate 79 77 Respiratory Rate 19 17 Blood Pressure 103/50 L 144/48 H Pulse Oximetry 97 96 Oxygen Delivery Method Room Air Room Air BMI result Body Mass Index 30.4 Const General: healthy appearing, comfortable, no acute distress, alert and awake Nutritional Appearance: well nourished Orientation/consciousness: patient oriented x3 HENMT Head: Yes normocephalic and Yes atraumatic Eyes Eyelids: Yes eyelids normal Conjunctivae: conjunctivae normal Sclerae: sclerae normal Corneas: corneas normal Pupils: Equal, round and reactive pupils present EOM: EOMs intact bilaterally Neck Neck: Yes full ROM Resp Other: Inspiratory wheezing heard best in the left lung field Effort & Inspection: normal respiratory effort, able to speak in complete sentences and not labored Cardio Rate: regular rate Rhythm: regular rhythm GI Inspection: No distended Palpation (GI): Soft to palpation, not firm, nontender, no guarding and not rigid Skin General skin exam: elasticity normal Neuro General: patient oriented x3 Cranial nerves: Yes Equal, round and reactive pupils present and Yes Bilaterally intact EOM present Cognition (Neuro): normal cognition Extrem Other: Moving all extremities well without any obvious deformities Course Course Course Narrative: RME: 78 yold female with pmh of mutliple myleoma presents to the Ed for coughing with chest pain, lethargy, and low blood pressure . Vitals stable. labs and EkG and xray ordered Reevaluation(s) Reevaluation #1: The patient's thrombocytopenia is likely related to her current illness in the setting of multiple myeloma and chronic steroid use. The patient will likely require a stress dosing pending her workup Time: 18:28 Reevaluation #2: Patient is influenza positive, outside window for Tamiflu treatment his symptoms started 6 days ago. She reports that her doctor told to take dexamethasone daily for the next 3 days already which I agree with as a stress dose steroids for her chronic steroid use. Patient's vital signs remained stable, she is stable for discharge at this Time: 18:40 Medical Decision Making Medical Decision Making MDM Narrative: 78-year-old female presents for evaluation of upper respiratory symptoms. I reviewed her chest x-ray earlier that showed no acute cardiopulmonary disease. Plan for labs, viral swabs. Her vitals are currently stable, oxygen saturation 96% on room air while was in the room. Differential Diagnosis Differential Diagnoses: The differential diagnosis associated with the presentation includes Viral syndrome Upper respiratory infection Pneumonia Bronchitis RSV Influenza Lab Data MDM Lab Attestation statement: I reviewed the patient's lab results. Patient has thrombocytopenia with the leukopenia 3.1, anemia with a hemoglobin 10.4 hematocrit 31.9. She is not on any blood thinners, denies black or bloody stool. Her platelet count is 78. No significant electrolyte abnormalities 08/22/23 17:44 08/22/23 17:44 Labs: Lab Results 08/22/23 Range/Units 17:44 WBC 3.1 L (4.8-10.8) X10*3/uL RBC 3.42 L (4.20-5.50) X10*6/uL Hgb 10.4 L (12.0-16.0) g/dl Hct 31.9 L (37.0-47.0) % MCV 93.3 (80.0-98.0) fL MCH 30.4 (27.0-33.0) pg MCHC 32.6 (31.0-35.0) g/dl RDW 14.3 (11.0-16.0) % Plt Count 78 L D (160-400) X10*3/uL MPV 8.8 L (9.4-12.3) fL Immature Gran % (Auto) 1.6 H (0.0-0.4) % Neut % (Auto) 77.5 H (45-73) % Lymph % (Auto) 7.5 L (20-40) % Mckenzie % (Auto) 13.4 H (2-11) % Eos % (Auto) 0.0 (0-4) % Baso % (Auto) 0.0 (0-2) % Lymph # (Auto) 0.2 L (1.2-4.9) X10*3/uL Mckenzie # (Auto) 0.4 (0.1-1.2) X10*3/uL Eos # (Auto) 0.0 (0.0-0.4) X10*3/uL Baso # (Auto) 0.0 (0.0-0.2) X10*3/uL Abs Immat Gran (auto) 0.05 H (0.00-0.03) X10*3/uL Absolute Neuts (auto) 2.4 (2.0-8.3) x10*3/uL Absolute Nucleated RBC 0.000 (0.0-0.012) X10*3/uL Nucleated RBC % (auto) 0.0 (0.0-0.2) /100WBC Sodium 139 (135-145) mmol/L Potassium 4.7 (3.3-5.1) mmol/L Chloride 104 (96-108) mmol/L Carbon Dioxide 24 (22-29) mmol/L Anion Gap 16 (12-20) BUN 17 H (9-16) mg/dL Creatinine 0.84 (0.5-1.4) mg/dL Estim Creat Clear Calc 53.6 Estimated GFR > 60 Random Glucose 96 (60-115) mg/dL Calcium 8.9 (8.4-10.2) mg/dL Total Bilirubin 1.0 (0.0-1.0) mg/dL AST 56 H (5-31) U/L ALT 31 (0-31) U/L Alkaline Phosphatase 48 (39-117) U/L Troponin I High Sens < 2.7 (<3.5-17.0) ng/L B-Natriuretic Peptide 121 H (<100) pg/mL Total Protein 6.6 (6.5-8.0) g/dL Albumin 4.3 (3.5-5.0) g/dL Influenza Type A (PCR) POSITIVE A (Negative) Influenza Type B (PCR) NEGATIVE (Negative) RSV RNA Qual (PCR) NEGATIVE (Negative) SARS-CoV-2 RNA (RT-PCR) NEGATIVE (Negative) External Record Review External record reviewed: Outpatient record (Outpatient chest x-ray without acute pulmonary disease) Discharge Plan Discharge Clinical Impression: Influenza Patient Disposition: Home, Self-Care Instructions: Influenza (ED) Additional Instructions: You tested positive for influenza I do recommend getting repeat labs next week Your white blood cell count, red blood cell count and platelets were low today which is likely due to chronic steroid use You need what is called stress dose steroids which is by your doctor told her to take dexamethasone daily for at least the next 3 days You may continue all of your other medications as prescribed Return for new or worsening symptoms Follow-up with your primary doctor Prescriptions: No Action amlodipine 5 mg tablet 5 mg PO DAILY Qty: 90 3RF budesonide-formoterol [Symbicort] 160-4.5 mcg/actuation HFA aerosol inhaler 2 puff PO BID Qty: 10.2 3RF sulfamethoxazole-trimethoprim 800-160 mg tablet 1 tab PO DAILY Qty: 30 4RF meloxicam 15 mg tablet 15 mg PO DAILY Qty: 90 1RF metoprolol succinate 50 mg tablet extended release 24 hr 50 mg PO DAILY Qty: 90 3RF losartan 100 mg tablet 100 mg PO DAILY Qty: 90 3RF hydrocodone-chlorpheniramine 10-8 mg/5 mL suspension,extended rel 12 hr 5 ml PO Q12H PRN (Reason: cold symptoms) Qty: 70 0RF Rx Instructions: Partial Fill upon patient request. benzonatate 200 mg capsule 200 mg PO BID-TID PRN (Reason: cough) Qty: 30 0RF valacyclovir 500 mg Tablet 500 mg PO DAILY Qty: 90 4RF atorvastatin 20 mg tablet 20 mg PO DAILY Qty: 90 2RF diphenoxylate-atropine 2.5-0.025 mg Tablet 1 tab PO DAILY PRN (Reason: Diarrhea) Qty: 60 5RF mecobalamin (vitamin B12) [B12 Active] 1,000 mcg Tablet,Chewable 1,000 mcg PO DAILY valacyclovir [Valtrex] 500 mg Tablet 500 mg PO DAILY Qty: 90 3RF diphenoxylate-atropine [Lomotil] 2.5-0.025 mg Tablet 1 tab PO TID PRN (Reason: Diarrhea) Qty: 50 3RF lorazepam 0.5 mg Tablet 0.5 mg PO BID PRN (Reason: Anxiety) Qty: 50 2RF hydrocodone-acetaminophen 5-325 mg Tablet 1 tab PO Q4H PRN (Reason: Breakthrough Pain, Moderate) Qty: 50 0RF Rx Instructions: Partial Fill upon patient request. azithromycin [Zithromax Z-Jaylan] 250 mg Tablet 250 mg PO DAILY Qty: 6 0RF Rx Instructions: Take 500 mg p.o. today and then 250 mg daily for 4 days tramadol 50 mg tablet 50 mg PO BID PRN (Reason: Pain) miscellaneous medical supply Misc 1 ea miscellaneous DAILY Qty: 1 0RF Rx Instructions: nebulizer machine with tubing albuterol sulfate [Ventolin HFA] 90 mcg/actuation HFA aerosol inhaler 2 puff inhalation Q4-6H PRN (Reason: shortness of breath or wheezing) 30 Days Qty: 8.5 5RF aspirin 81 mg tablet,delayed release (DR/EC) 81 mg PO DAILY Myrbetriq 50 mg tablet extended release 24 hr 50 mg PO DAILY dexamethasone 4 mg tablet 6 mg PO DAILY PRN (Reason: chemo therapy assistance) Rx Instructions: decrease dose to 8mg on chemotherapy days, once bi-weekly pantoprazole 40 mg tablet,delayed release (DR/EC) 40 mg PO BID 90 Days Qty: 180 1RF
[2023-08-22 17:49] VITALS: BP 144/48; PULSE 77; RESP 17; O2SAT 96
[2023-08-22 17:52] LABS: MANUAL DIFF FLAG NO
[2023-08-22 18:00] LABS: Prothrombin Time 11.9 SEC (11.1-13.3)
[2023-08-22 18:13] LABS: Alanine Aminotransferase 31 U/L (0-31); Albumin Level 4.3 g/dL (3.5-5.0); Alkaline Phosphatase 48 U/L (39-117); Anion Gap 16 (12-20); Aspartate Amino Transferase 56 U/L (5-31); Blood Urea Nitrogen 17 mg/dL (9-16); Calcium 8.9 mg/dL (8.4-10.2); Carbon Dioxide 24 mmol/L (22-29); Chloride 104 mmol/L (96-108); Creatinine Clr Calc Pharmacy 53.6; Estimated Glomerular Filt Rate > 60; Glucose Random 96 mg/dL (60-115); Potassium 4.7 mmol/L (3.3-5.1); Sodium 139 mmol/L (135-145); Total Protein 6.6 g/dL (6.5-8.0)
[2023-08-22 18:14] LABS: Hematocrit 31.9 % (37.0-47.0); Hemoglobin 10.4 g/dl (12.0-16.0); Imm Gran Abs Auto 0.05 X10*3/uL (0.00-0.03); Imm Gran Pct Auto 1.6 % (0.0-0.4); Lymphocytes Absolute Auto 0.2 X10*3/uL (1.2-4.9); Lymphocytes Percent Auto 7.5 % (20-40); Mean Corpuscular HGB Conc 32.6 g/dl (31.0-35.0); Mean Corpuscular Hemoglobin 30.4 pg (27.0-33.0); Mean Corpuscular Volume 93.3 fL (80.0-98.0); Mean Platelet Volume 8.8 fL (9.4-12.3); Monocytes Absolute Auto 0.4 X10*3/uL (0.1-1.2); Monocytes Percent Auto 13.4 % (2-11); Neutrophils Absolute Auto 2.4 x10*3/uL (2.0-8.3); Neutrophils Percent Auto 77.5 % (45-73); Red Blood Count 3.42 X10*6/uL (4.20-5.50); Red Cell Distribution Width 14.3 % (11.0-16.0); White Blood Count 3.1 X10*3/uL (4.8-10.8)
[2023-08-22 18:15] LABS: B Type Natriuretic Peptide 121 pg/mL (<100); Platelet Count 78 X10*3/uL (160-400)
[2023-08-22 18:21] LABS: Troponin-I High Sensitivity < 2.7 ng/L (<3.5-17.0)
[2023-08-22 18:33] LABS: Influenza A PCR POSITIVE (Negative); Influenza B PCR NEGATIVE (Negative); Resp Syncy Virus RNA Qual PCR NEGATIVE (Negative); SARS COV2 PCR INHOUSE NEGATIVE (Negative)
[2023-08-22 18:53] LABS: Partial Thromboplastin Time 23.3 SEC (26.0-36.4)
== END 2023-08-22 19:01 | disposition home or self-care (01) ==
PROVIDERS: Physician Assistant; Emergency Provider Student in an Organized Health Care Education/Training Program; PCP Internal Medicine
DX: J10.1 Influenza due to other identified influenza virus with other respiratory manifestations (principal); R06.02 Shortness of breath; R05.9 Cough, unspecified; Z20.822 Contact with and (suspected) exposure to COVID-19; Z20.828 Contact with and (suspected) exposure to other viral communicable diseases; Z79.899 Other long term (current) drug therapy; Z87.891 Personal history of nicotine dependence
CPT/HCPCS: 0241U; 36415; 71046; 80053; 83880; 84484; 85025; 85610; 85730; 99282; 99283

== ENCOUNTER 2023-08-28 13:48 | Outpatient (REF) | payer MEDICARE, SELFPAY ==
[2023-08-28 16:19] LABS: MANUAL DIFF FLAG NO
[2023-08-28 16:29] LABS: Basophils Percent Auto 0.3 % (0-2); Eosinophils Percent Auto 0.4 % (0-4); Hematocrit 35.1 % (37.0-47.0); Hemoglobin 11.3 g/dl (12.0-16.0); Imm Gran Abs Auto 0.21 X10*3/uL (0.00-0.03); Imm Gran Pct Auto 3.1 % (0.0-0.4); Lymphocytes Absolute Auto 0.5 X10*3/uL (1.2-4.9); Lymphocytes Percent Auto 7.1 % (20-40); Mean Corpuscular HGB Conc 32.2 g/dl (31.0-35.0); Mean Corpuscular Hemoglobin 30.2 pg (27.0-33.0); Mean Corpuscular Volume 93.9 fL (80.0-98.0); Mean Platelet Volume 9.6 fL (9.4-12.3); Monocytes Absolute Auto 0.7 X10*3/uL (0.1-1.2); Monocytes Percent Auto 9.6 % (2-11); Neutrophils Absolute Auto 5.4 x10*3/uL (2.0-8.3); Neutrophils Percent Auto 79.5 % (45-73); Platelet Count 198 X10*3/uL (160-400); Red Blood Count 3.74 X10*6/uL (4.20-5.50); Red Cell Distribution Width 13.6 % (11.0-16.0); White Blood Count 6.7 X10*3/uL (4.8-10.8)
[2023-08-28 16:45] LABS: Alanine Aminotransferase 28 U/L (0-31); Albumin Level 4.3 g/dL (3.5-5.0); Alkaline Phosphatase 55 U/L (39-117); Anion Gap 14 (12-20); Aspartate Amino Transferase 31 U/L (5-31); Bilirubin Total 0.4 mg/dL (0.0-1.0); Blood Urea Nitrogen 19 mg/dL (9-16); Calcium 9.5 mg/dL (8.4-10.2); Carbon Dioxide 25 mmol/L (22-29); Chloride 106 mmol/L (96-108); Cholesterol 152 mg/dL (<200); Estimated Glomerular Filt Rate > 60; Glucose Random 102 mg/dL (60-115); HDL Cholesterol 46 mg/dL (>40); LDL Cholesterol Calculated 28 mg/dL (<100); Magnesium 2.3 mg/dL (1.6-2.6); Potassium 4.3 mmol/L (3.3-5.1); Sodium 141 mmol/L (135-145); Total Protein 6.6 g/dL (6.5-8.0); Triglycerides 392 mg/dL (<150)
[2023-08-28 17:00] LABS: Free T4 (Free Thyroxine) 0.73 ng/dL (0.71-1.85); Thyroid Stimulating Hormone 6.08 uIU/mL (0.32-4.0)
[2023-08-29 14:23] LABS: Vitamin B12 1419 pg/mL (200-900)
== END 2023-08-28 13:49 | disposition home or self-care (01) ==
LOC: HO.HMGCLDS 13:48
PROVIDERS: PCP Internal Medicine; Visit Provider Internal Medicine
DX: E78.00 Pure hypercholesterolemia, unspecified (principal)
CPT/HCPCS: 36415; 80053; 80061; 82607; 82746; 83735; 84439; 84443; 85025

== ENCOUNTER 2023-08-30 15:18 | Outpatient (REF) | payer MEDICARE, SELFPAY ==
[2023-08-30 16:17] LABS: CDiff Gene PCR NEGATIVE (Negative)
[2023-09-05 19:48] LABS: Lactoferrin, Fecal, Quant. <6.25 mcg/mL (<7.25)
== END 2023-08-30 15:19 | disposition home or self-care (01) ==
LOC: HO.LNP 15:18
PROVIDERS: Visit Provider Internal Medicine Gastroenterology
DX: K51.50 Left sided colitis without complications (principal); K52.9 Noninfective gastroenteritis and colitis, unspecified
CPT/HCPCS: 83631; 87493

== ENCOUNTER 2023-09-07 11:10 | Outpatient (AMB) | payer MEDICARE, SELFPAY ==
[2023-09-07 11:24] VITALS: BMI 29.8
--- NOTE | 2023-09-07 11:24 | MHC.OFFVIS ---
Intake Vital Signs 09/07/23 11:24 Height 5 ft 3 in Weight 168 lb BMI 29.8 Intake Visit Reasons: [employer]ANT- Bilateral primary osteoarthritis of knee Intake Note: Moni is a 78 year old female who presents today as a new patient with complaints of bilateral knee pain. patient reports that she has had ongoing bilateral knee pain for quite some time now. She has been seen with Dr. Cason in the past and had arthroscopic surgeries on both knees. Allergies oxycodone [From OXYCONTIN] Allergy (Mild, Verified 09/07/23 11:33) PRURITUS, severe itching adhesive tape Allergy (Unknown, Verified 09/07/23 11:33) BLISTERS cephalexin [Keflex] Allergy (Unknown, Verified 09/07/23 11:33) hives doxycycline [DOXYCYCLINE] Adverse Reaction (Intermediate, Verified 09/07/23 11:33) STOMACH PAINS HPI [employer]- Bilateral primary osteoarthritis of knee HPI Details Moni is a 78 year old woman who presents with complaints of bilateral knee OA pain. Her right knee is particularly bothersome. She has chronic multiple myeloma and bilateral lower leg neuropathy She complains of pain with daily activity, and says this has been present for several years. She has a hx of bilateral knee done by Dr. Cason in the past. [facility] Medical History (Updated 08/23/23 @ 00:03 by Fany Mitchell) Chronic diarrhea Urinary incontinence, urge Urinary frequency Urinary urgency Pneumonia Acute exacerbation of chronic obstructive pulmonary disease Chronic cough Generalized anxiety disorder Costochondritis Dyspnea on exertion COPD (chronic obstructive pulmonary disease) Anxiety Cataract Bladder cancer GERD (gastroesophageal reflux disease) Asthma IBS (irritable bowel syndrome) Hypertension Multiple myeloma Surgical History History of esophagogastroduodenoscopy (EGD) H/O colonoscopy History of eyelid surgery History of tonsillectomy H/O wrist surgery H/O eye surgery History of arthroscopy of both knees H/O rotator cuff surgery H/O cardiac catheterization Family History Father Pancreatic cancer Diabetes Stroke Mother No problems noted. Sister Diabetes Son No problems noted. Social History Household Members: Spouse Housing: Condominium Are you a primary grounds caretaker to a significant other at home: No Do you presently have visiting nurse or other home services: Yes (VNA) Alcohol intake: never Patient Tobacco Use Status: Former Tobacco user Tobacco use type: Cigarette e-Cigarette/Vaping Use: Never Used Second Hand Smoke Exposure: No Advance Directives Date on File: 07/20/23 service: No Current occupational status: retired Cognitive needs: No Hearing needs: No Vision needs: Yes Review of Systems Const All systems reviewed & are unremarkable except as noted in HPI and below Physical Exam Vital Signs: BMI result Body Mass Index 29.8 Const General: no acute distress, alert and awake Orientation/consciousness: patient oriented x3 HEENT Head: Yes normocephalic and Yes atraumatic Eyes EOM: EOMs intact bilaterally Resp Effort & Inspection: normal respiratory effort and able to speak in complete sentences Cardio Jugular venous distension: no JVD Skin General skin exam: turgor normal Rashes: no rashes Neuro General: patient oriented x3 Extrem Other: Bilateral varus knees and right knee varus thrust with gait Psych Appearance: grossly normal Affect: normal affect Attitude: cooperative Results Reviewed Results Reviewed: I personally reviewed relevant radiographs. There is VARUS angulation with loss of medial joint space and subluxation bilaterally right > left. Severe OA [id number] knees. Assessment & Plan Assessment & Plan (1) Osteoarthritis of knees, bilateral: Code(s): M17.0 - Bilateral primary osteoarthritis of knee Plan: Severe knee OA. We had a long discussion regarding knee OA and treatment options including injections ( Steroid, DIEGO and PRP) as well as the surgical options and we discussed bracing. She is hesitant to undergo injections and is not interested in surgery at this time. We will try a right knee medial conche loader and unloader. Plan Scribed for Rajeev Horn MD by Davon Pemberton, medical record retrieval specialist, on 09/07/23 at 12:00 PM, EST. Coding Level of Care Code New Pt Level 4 (07502) Diagnoses Osteoarthritis of knees, bilateral M17.0
== END 2023-09-07 13:21 | disposition home or self-care (01) ==
PROVIDERS: PCP Internal Medicine; Visit Provider Orthopaedic Surgery
DX: M17.0 Bilateral primary osteoarthritis of knee (principal)
CPT/HCPCS: 99204

== ENCOUNTER → 2023-09-07 11:10 | Outpatient (BNVA) | payer MEDICARE, SELFPAY | PROVIDERS: PCP Internal Medicine; Visit Provider Orthopaedic Surgery | DX: M17.0 Bilateral primary osteoarthritis of knee (principal) | CPT/HCPCS: 99202 ==

== ENCOUNTER 2023-09-14 09:48 | Outpatient (AMB) | payer MEDICARE, SELFPAY ==
--- NOTE | 2023-09-14 09:52 | A.OFFVIS_ITS ---
Intake Intake Visit Reasons: OV-B/L knee injection- right knee worse shape. Intake Note: Moni is a 78 year old female who presents today for bilateral knee injections, she was last seen on 09/08/23 where injections were discussed but she was hesitant to move forward with them at that time. Allergies oxycodone [From OXYCONTIN] Allergy (Mild, Verified 09/11/23 08:48) PRURITUS, severe itching adhesive tape Allergy (Unknown, Verified 09/11/23 08:48) BLISTERS cephalexin [Keflex] Allergy (Unknown, Verified 09/11/23 08:48) hives doxycycline [DOXYCYCLINE] Adverse Reaction (Intermediate, Verified 09/11/23 08:48) STOMACH PAINS HPI OV-B/L knee injection- right knee worse shape. HPI Details Moni is a 78 year old woman who presents with complaints of bilateral knee OA pain. Her right knee is particularly bothersome. She has chronic multiple myeloma and bilateral lower leg neuropathy She was last seen on 09/07/23, where steroid injections were discussed. She would like to have injections done today. She complains of pain with daily activity, and says this has been present for several years. She has a hx of bilateral knee done by Dr. Cason in the past. [facility] Medical History Chronic diarrhea Urinary incontinence, urge Urinary frequency Urinary urgency Pneumonia Acute exacerbation of chronic obstructive pulmonary disease Chronic cough Generalized anxiety disorder Costochondritis Dyspnea on exertion COPD (chronic obstructive pulmonary disease) Anxiety Cataract Bladder cancer GERD (gastroesophageal reflux disease) Asthma IBS (irritable bowel syndrome) Hypertension Multiple myeloma Surgical History History of esophagogastroduodenoscopy (EGD) H/O colonoscopy History of eyelid surgery History of tonsillectomy H/O wrist surgery H/O eye surgery History of arthroscopy of both knees H/O rotator cuff surgery H/O cardiac catheterization Family History Father Pancreatic cancer Diabetes Stroke Mother No problems noted. Sister Diabetes Son No problems noted. Social History Household Members: Spouse Housing: Condominium Are you a primary family day care provider to a significant other at home: No Do you presently have visiting nurse or other home services: Yes (VNA) Alcohol intake: never Patient Tobacco Use Status: Former Tobacco user Tobacco use type: Cigarette e-Cigarette/Vaping Use: Never Used Second Hand Smoke Exposure: No Advance Directives Date on File: 07/20/23 service: No Current occupational status: retired Cognitive needs: No Hearing needs: No Vision needs: Yes Review of Systems Const All systems reviewed & are unremarkable except as noted in HPI and below Physical Exam Const General: no acute distress, alert and awake Orientation/consciousness: patient oriented x3 HEENT Head: Yes normocephalic and Yes atraumatic Eyes EOM: EOMs intact bilaterally Resp Effort & Inspection: normal respiratory effort and able to speak in complete sentences Cardio Jugular venous distension: no JVD Skin General skin exam: turgor normal Rashes: no rashes Neuro General: patient oriented x3 Extrem Other: varus pattern OA bilateral knees with ttp medial compartment Psych Appearance: grossly normal Affect: normal affect Attitude: cooperative Office Procedures Joint Injection/Drain Joint Injection/Drain Details: Injected 1 mL of Decadron and 3 mL 1% lidocaine and 3 mL of 0.25% Marcaine. Site was prepped using aseptic technique. Patient tolerated the procedure well. Primary Site: right knee Secondary Site: left knee Approach Used: anterolateral Coding - Large joint - Glenohumeral/Tronchanteric Bursa/Intraarticular Procedure code (CPT) selection complete Assessment & Plan Assessment & Plan (1) Osteoarthritis of knees, bilateral: Code(s): M17.0 - Bilateral primary osteoarthritis of knee Plan: Injected bilateral knees. She wanted to make sure it was ok with her oncologist as she has multiple myeloma and has been on chronic steroids off and on for many years. I discussed the potential benefits of injections as well as the potential drawbacks. If the injections are not helpful we may consider viscosupplementation. Plan Scribed for Rajeev Horn MD by Davon Pemberton, biomedical instrument technician, on 09/14/23 at 9:55 AM, EST. Coding Level of Care Code Est Pt Level 3 (44088) Diagnoses Osteoarthritis of knees, bilateral M17.0 CPT Codes Coding - 61428 Large joint: 17430 - Large joint ([id number]) Coding - Joint 7: 17232 - Glenohumeral/Tronchanteric Bursa/Intraarticular ([id number])
== END 2023-09-14 10:52 | disposition home or self-care (01) ==
PROVIDERS: PCP Internal Medicine; Visit Provider Orthopaedic Surgery
DX: M17.0 Bilateral primary osteoarthritis of knee (principal)
CPT/HCPCS: 20610; 99213

== ENCOUNTER → 2023-09-14 09:48 | Outpatient (BNVA) | payer MEDICARE, SELFPAY | PROVIDERS: PCP Internal Medicine; Visit Provider Orthopaedic Surgery | DX: M17.0 Bilateral primary osteoarthritis of knee (principal) | CPT/HCPCS: 20610; 99212; J0665; J1100 ==

== ENCOUNTER 2023-09-21 07:48 | Outpatient (AMB) | payer MEDICARE, SELFPAY ==
--- NOTE | 2023-09-21 07:55 | MHC.OFFVIS ---
Intake Vital Signs 09/21/23 07:56 Height 5 ft 3 in Weight 167 lb 8.821 oz BMI 29.7 BP 123/51 L Blood Pressure Location Lt brachial Position Sitting Pulse 63 Pulse Oximetry (%) 96 Intake Visit Reasons: Cholelithiasis Intake Note: Moni presents in the office as a follow up for cholelithiasis. CC: She is T cell therapy on sunday in [place]. [address] Required: No Allergies oxycodone [From OXYCONTIN] Allergy (Mild, Verified 09/21/23 07:56) PRURITUS, severe itching adhesive tape Allergy (Unknown, Verified 09/21/23 07:56) BLISTERS cephalexin [Keflex] Allergy (Unknown, Verified 09/21/23 07:56) hives doxycycline [DOXYCYCLINE] Adverse Reaction (Intermediate, Verified 09/21/23 07:56) STOMACH PAINS Medication List - Last Reconciled 09/21/23 by Trena Dotson MD albuterol sulfate 90 mcg/actuation (Ventolin HFA) 2 puffs inhalation Q4-6H PRN 30 days amlodipine 5 mg PO DAILY aspirin 81 mg PO DAILY atorvastatin 20 mg PO DAILY desvenlafaxine succinate ER 25 mg PO DAILY diphenoxylate-atropine 2.5-0.025 mg 1 tab PO DAILY PRN gabapentin 100 mg PO BEDTIME hydrocodone-acetaminophen 5-325 mg 1 tab PO Q4H PRN hydrocodone-chlorpheniramine 10-8 mg/5 mL 5 mL PO Q12H PRN lorazepam 0.5 mg PO BID PRN losartan 100 mg PO DAILY mecobalamin (vitamin B12) (B12 Active) 1,000 mcg PO DAILY meloxicam 15 mg PO DAILY metoprolol succinate ER 50 mg PO DAILY pantoprazole 40 mg PO BID 90 days sulfamethoxazole-trimethoprim 800-160 mg 1 tab PO DAILY Symbicort 160-4.5 mcg/actuation (budesonide-formoterol) 2 puffs PO BID NS tramadol 50 mg PO BID PRN valacyclovir (Valtrex) 500 mg PO DAILY valacyclovir 500 mg PO DAILY HPI Cholelithiasis HPI Details FU GI clinic visit for this 78-year-old female for FU of GERD and IBS. Patient has been followed by Dr. Bojorquez since 2014 for? nausea,? epigastric pain, heartburn, dysphagia and diarrhea She is followed by Dr Muniz in heme-onc for multiple myeloma. LABS IN [facility] :?celiac serologies were negative, stool wbc and culture negative, C Diff was equivocal IMAGING STUDIES:? 05/2023 ABD US SHOWED: 1. There is cholelithiasis. 2. There is generalized increase in hepatic echotexture, consistentwith fatty infiltration or hepatocellular disease. Please correlate clinically. Characteristic pericholecystic sparing favors fatty infiltration. No focal hepatic mass or intrahepatic biliary dilatation is seen. 3. There is hepatomegaly. 11/07/21 BARIUM SWALLOW SHOWED:Esophageal caliber is normal. There is moderate dysmotility. No fixed stricture or extrinsic mass lesion demonstrated. No mucosal abnormality. No hiatal hernia. No gastroesophageal reflux observed. A barium tablet passed through the esophagus into the stomach. ENDOSCOPIC STUDIES:? 2018? EGD showed a small hiatal hernia. Same day colonoscopy was negative ? Except 1+ internal hemorrhoids.? Duodenal biopsies were normal, gastric biopsies showed mild chronic inactive gastritis and was negative for H pylori.? Random biopsies obtained from right and left colon were normal. Sep 2016? EGD AND COLONOSCOPY SHOWED: Hemorrhagic gastritis, soft changes consistent with possibilityof gastroesophageal reflux disorder - GASTRIC BIOPSIES WERE NEGATIVE FOR H PYLORI.? Mild diverticulosis and +1 internal hemorrhoids. PLAN:? Patient will be reseen in my office in 4 weeks.? Repeat colon cancer screening would be recommended for 5-7 years depending on clinical conditions Patient cc: acid reflex, upper center abdominal pain with bloating, also dysphagia on and off with solid and liquid. TODAYS VISIT: CC: She is to start CAR T cell therapy on Sunday at [facility] in [place]. Her T cells will be removed and reinjected after 5 weeks to kill the cancer cells Had to cancel her vacation since she got influenza infection on the day she was to travel Complains of post prandial upper abdominal pain Trying to eat smaller portions more slowly Diarrhea with 3 to 8 BMs per day. Uses imodium, pepto-bismol and Lomotil Trying to drink a lot of liquids and electrolytes PAST VISITS: Has been having intermittent reddish orange/rust colored stool all week. Denies noticing any blood. Diarrhea has not been too bad this week - had a bout on 05/07/23 Three episodes on 05/10/23. Notes post prandial abdominal pain and bloating intermittently Complains of postprandial abdominal pain/pressure and unsure what to eat. Stomach does not feel good. Continues to have dysphagia and can have regurgitation of food into her throat (new problem) Intermittent heartburn and takes peptobismol or TUMS Continues to have loose stools - not always diarrhea Stopped writing down what she eats since she is unable to find a pattern. Takes 2 tab of immodium when she has increased diarrhea and takes another 2 tablets if she continues to have diarrhea. Takes Tramadol less than a few times a month and not daily. Decreased her treatment Velcade (Sunday treatment was stopped) due to hair loss. Has mets to the back and spine BMs are rarely formed - either mush or liquid, and sometimes orange in color and rarely diarrhea. Wt gain despite eating less - eats until she feels full. Does not eat big portions. Started taking a nutrition shake. Drinks a lot of water. Uses a heat pack on the stomach since it hurts. Notes urgency after she eats. Keeps a journal and is unable to find a pattern Sometimes she notes a little blood on the side of the stools Took some ice cream and had diarrhea after eating it Takes Lactose free milk Rarely has trouble going. PAST VISITS: Hospitalized in 03/2022 with COPD and pneumonia Notes intermittent cough usually in the am. On a steroid taper at present. Continues to have dysphagia with solids and large pills. Diarrhea is not too bad. Had an episode of gelatinous stool on 04/07/22 after she went home from the hospital Has 1 to 5 BMs a day. Takes Colestipol and 1 imodiun when she has diarrhea. Unable to identify precipitating foods. Avoids spicy foods Getting treatment for MM every 2 weeks followed by dexamethasone on Sun and . Seeing her Chiropractor for aches and pains - which is helping Stopped Creon since it was causing abdominal cramps. Notes diarrhea 2 -3 times a week - not related to treatment. Not taking colestipol due to concern for constipation. Intermittent rectal bleeding when she is constipated which she attributes to hemorrhoids. Takes Tramadol for body pains. Keeping a journal of diet and BMs Sometimes certain foods won't bother her and sometimes its a disaster Notes worsening dysphagia to liquids and solids - denies regurgitation with dysphagia episodes. Dysphagia is more often with liquids than solids. Denies coughing spells with dysphagia Broke her tooth and had nausea? due to enamel Starting to have a little problem with constipation (none since 2017) Still has intermittent diarrhea and is more manageable - taking imodium, Tums and colestipol Can have upto 7 BMs a day. Getting sinus DIEGO's. Kept a dairy of her BMs. Continues to have loose and liquid BMs. BMs are broken into lumps and bumps Eating less and gaining wt. Does not know what to eat since a lot of foods bother her Avoids salads and broccoli Stool studies were reviewed. Notes fat in the stool intermittently Continues to have intermittent diarrhea. On Revlimid (Lenalidomide)every 3 weeks - rest x 1 week - unsure if she has incrased diarrhea while on Revlimid. Can have lower abd pain, or pain can move up into the epigastrium. Has been noticing some gas over the past month. Biggest issue is her sleep since she has to get up to urinate. Her bowels do not interrupt her sleep. Can have 1-2 and upto 5 Bms a day - upto 7 times once. Concerned she may be loosing her nutrients. Takes Colestipol, imodium or peptobismol which works and diarrhea can come right back TUMS does not help. Diagnosed with Multiple Myeloma 5 yrs ago when she noted worsening fatigue. Takes Pantoprazole at night - advised by Dr Bojorquez. Takes imodium for the diarrhea. Sometimes takes peptobismol, meenakshi seltzer or TUMS for the diarrhea. She is taking colestipol once daily and takes a 2nd dose if diarrhea is bad [facility] Medical History Chronic diarrhea Urinary incontinence, urge Urinary frequency Urinary urgency Pneumonia Acute exacerbation of chronic obstructive pulmonary disease Chronic cough Generalized anxiety disorder Costochondritis Dyspnea on exertion COPD (chronic obstructive pulmonary disease) Anxiety Cataract Bladder cancer GERD (gastroesophageal reflux disease) Asthma IBS (irritable bowel syndrome) Hypertension Multiple myeloma Surgical History History of esophagogastroduodenoscopy (EGD) H/O colonoscopy History of eyelid surgery History of tonsillectomy H/O wrist surgery H/O eye surgery History of arthroscopy of both knees H/O rotator cuff surgery H/O cardiac catheterization Family History Father Pancreatic cancer Diabetes Stroke Mother No problems noted. Sister Diabetes Son No problems noted. Social History Household Members: Spouse [facility] Are you a primary rehab care assistant to a significant other at home: No Do you presently have visiting nurse or other home services: Yes ([facility]) Alcohol intake: never Patient Tobacco Use Status: Former Tobacco user Tobacco use type: Cigarette e-Cigarette/Vaping Use: Never Used Second Hand Smoke Exposure: No Advance Directives Date on File: 07/20/23 service: No Current occupational status: retired Cognitive needs: No Hearing needs: No Vision needs: Yes Review of Systems Const All systems reviewed & are unremarkable except as noted in HPI and below Physical Exam Vital Signs: Last Vital Signs Pulse 63 09/21/23 07:56 BP 123/51 L 09/21/23 07:56 Pulse Ox 96 09/21/23 07:56 BMI result Body Mass Index 29.7 Const General: healthy appearing and no acute distress Nutritional Appearance: overweight Orientation/consciousness: patient oriented x3 HEENT Head: Yes normal to inspection Ears: hearing grossly normal bilaterally Eyes Sclerae: sclerae normal Pupils: Equal, round and reactive pupils present Neck Neck: Yes normal visual inspection Chest Chest palpation & inspection: normal inspection of the chest Resp Effort & Inspection: normal respiratory effort Auscultation: clear to auscultation bilaterally Cardio Palpation: normal PMI Rate: regular rate Rhythm: regular rhythm Heart sounds: S1 normal heart sound present, S2 normal heart sound present and no murmurs GI Palpation (GI): Soft to palpation, nontender and No hepatosplenomegaly present Auscultation: normal bowel sounds Rectal Exam - Female: deferred Skin General skin exam: no rashes or lesions noted Neuro General: patient oriented x3, gait normal and moves all extremities Cranial nerves: Yes Equal, round and reactive pupils present Psych Appearance: grossly normal Mental Status: mental status grossly normal Assessment & Plan Assessment & Plan (1) Chronic diarrhea: Code(s): K52.9 - Noninfective gastroenteritis and colitis, unspecified (2) Postprandial epigastric pain: Code(s): R10.13 - Epigastric pain (3) Cholelithiasis: Code(s): K80.20 - Calculus of gallbladder without cholecystitis without obstruction (4) Dysphagia, pharyngoesophageal phase: Code(s): R13.14 - Dysphagia, pharyngoesophageal phase (5) GERD (gastroesophageal reflux disease): Code(s): K21.9 - Gastro-esophageal reflux disease without esophagitis Qualifiers: Esophagitis presence: without esophagitis Qualified Code(s): K21.9 - Gastro-esophageal reflux disease without esophagitis Plan 78 YF with hypertension, asthma, anxiety disorder and multiple myeloma followed in GI for GERD and chronic diarrhea of unclear etiology. Past evaluation with colonoscopy and random biopsies were normal, celiac serologies were negative, stool wbc and culture negative, C Diff was equivocal Stool fat?and pancreatic elastase was normal. Pt was taking Revlimid (Lenalidomide) every 3 weeks for? multiple myeloma which can be associated with diarrhea and 39-49% of patient, abdominal pain in 10-12%, nausea and 11-30% and decreased appetite in 14% of patients.? ? Patient discontinued Revlimid without change in diarrhea. She was started on daratumumab faspro on 07/05. She has so far been tolerating it very well. She had last couple of treatments while she was vacationing in [place], last year, (she received week 7 on 08/23 and week 8 8 on 08/30 under the care of Dr. Schuyler Hicks, at [facility] in [place].) Pamelist was added for MM on 02/14/22 Pt was advised to continue taking imodium or peptobismol prn for diarrhea. She was given a trail of pancreatic enzymes (although stool pancreatic elastase was normal) and stopped taking it since it was associated with abdominal cramps A barium swallow showed?moderate dysmotility without stricture or extrinsic mass lesion. No hiatal hernia or gastroesophageal reflux was noted. 05/09/23 Abd US showed cholelithiasis and fatty liver 05/01/[address] Muniz (Oncology): She has been referred for physical therapy to strengthen her legs. l advised gentle therapy. That is helping a lot. She will continue the Decadron taper. She will go down to 4 mg. I will follow up on the free light chain ratio, monthly to gauge her response. She will continue on the Denosumab, q 6 months. 09/21/23 She is to start BATRES T cell therapy on 09/21/23 at [facility] in [place]. Her T cells will be removed and re-injected after 5 weeks to kill the cancer cells Complains of post prandial upper abdominal pain Diarrhea with 3 to 8 BMs per day. Pt advised to increase pantoprazole to twice a day. She will be scheduled for an EGD after BATRES T cell therapy is completed Follow-up in 4 months Medications: Changed From hydrocodone-acetaminophen 5-325 mg Partial Fill upon patient request. 1 tab PO Q4H PRN 50 tabs 0RF Breakthrough Pain, Moderate To hydrocodone-acetaminophen 5-325 mg Partial Fill upon patient request. 1 tab PO Q4H PRN From hydrocodone-chlorpheniramine 10-8 mg/5 mL Partial Fill upon patient request. 5 mL PO Q12H PRN 70 mL 0RF cold symptoms To hydrocodone-chlorpheniramine 10-8 mg/5 mL Partial Fill upon patient request. 5 mL PO Q12H PRN Coding Level of Care Code Est Pt Level 4 (25514) Diagnoses Chronic diarrhea K52.9 Postprandial epigastric pain R10.13 Cholelithiasis K80.20 Dysphagia, pharyngoesophageal phase R13.14 Gastroesophageal reflux disease without esophagitis K21.9 Esophagitis presence: without esophagitis Time Spent (min) 21
[2023-09-21 07:56] VITALS: BP 123/51; PULSE 63; O2SAT 96; BMI 29.7
== END 2023-09-21 09:29 | disposition home or self-care (01) ==
PROVIDERS: PCP Internal Medicine; Visit Provider Internal Medicine Gastroenterology
DX: K52.9 Noninfective gastroenteritis and colitis, unspecified (principal); R10.13 Epigastric pain; K80.20 Calculus of gallbladder without cholecystitis without obstruction; R13.14 Dysphagia, pharyngoesophageal phase; K21.9 Gastro-esophageal reflux disease without esophagitis
CPT/HCPCS: 99214

== ENCOUNTER → 2023-09-21 07:48 | Outpatient (BNVA) | payer MEDICARE, SELFPAY | PROVIDERS: PCP Internal Medicine; Visit Provider Internal Medicine Gastroenterology | DX: K80.20 Calculus of gallbladder without cholecystitis without obstruction (principal); K21.9 Gastro-esophageal reflux disease without esophagitis; K52.9 Noninfective gastroenteritis and colitis, unspecified; R10.13 Epigastric pain; R13.14 Dysphagia, pharyngoesophageal phase | CPT/HCPCS: 99212 ==

== ENCOUNTER 2023-10-18 11:12 | Outpatient (AMB) | payer MEDICARE, SELFPAY ==
[2023-10-18 11:18] VITALS: BP 130/62; PULSE 70; O2SAT 98; BMI 30.7
--- NOTE | 2023-10-18 11:18 | MHC.OFFVIS ---
Intake Vital Signs 10/18/23 11:18 Height 5 ft 3 in Weight 173 lb 1.006 oz BMI 30.7 BP 130/62 Blood Pressure Location Lt brachial Position Sitting Pulse 70 Pulse Source Pulse Oximeter Pulse Oximetry (%) 98 Oxygen Delivery Method Room Air Intake Visit Reasons: COPD Intake Note: pt is here for follow up and states her breathing is a little more difficult since being off chemo, She is having a big procedure in [place] in a few weeks replacing her own cells. [employer] Required: No Allergies oxycodone [From OXYCONTIN] Allergy (Mild, Verified 10/18/23 11:33) PRURITUS, severe itching adhesive tape Allergy (Unknown, Verified 10/18/23 11:33) BLISTERS cephalexin [Keflex] Allergy (Unknown, Verified 10/18/23 11:33) hives doxycycline [DOXYCYCLINE] Adverse Reaction (Intermediate, Verified 10/18/23 11:33) STOMACH PAINS Medication List - Last Reconciled 10/18/23 by Cyndy Flores MD albuterol sulfate 90 mcg/actuation (Ventolin HFA) 2 puffs inhalation Q4-6H PRN 30 days amlodipine 5 mg PO DAILY aspirin 81 mg PO DAILY atorvastatin 20 mg PO DAILY desvenlafaxine succinate ER 25 mg PO DAILY diphenoxylate-atropine 2.5-0.025 mg 1 tab PO DAILY PRN gabapentin 100 mg PO BEDTIME hydrocodone-acetaminophen 5-325 mg 1 tab PO Q4H PRN hydrocodone-chlorpheniramine 10-8 mg/5 mL 5 mL PO Q12H PRN lorazepam 0.5 mg PO BID PRN losartan 100 mg PO DAILY mecobalamin (vitamin B12) (B12 Active) 1,000 mcg PO DAILY meloxicam 15 mg PO DAILY metoprolol succinate ER 50 mg PO DAILY pantoprazole 40 mg PO BID 90 days sulfamethoxazole-trimethoprim 800-160 mg 1 tab PO DAILY Symbicort 160-4.5 mcg/actuation (budesonide-formoterol) 2 puffs PO BID NS tramadol 50 mg PO BID PRN valacyclovir (Valtrex) 500 mg PO DAILY valacyclovir 500 mg PO DAILY Do you need a note to return to daycare/school/sports/work: No HPI COPD HPI Details 78 YEARS OLD VERY PLEASANT FEMALE COMES FOR HER ROUTINE FOLLOW-UP FOR PULMONARY ISSUES, AFTER 4 MONTHS. SHE DOES GET SHORT OF BREATH ON WALKING FAST OR CLIMBING STAIRS, WHICH IS SOME WHAT MORE PRONOUNCED DONE BEFORE, BUT THIS IS DUE TO HER HEMATOLOGIC CONDITION. PATIENT HAS NOT USED SYMBICORT OR VENTOLIN. ABOUT A MONTH AGO SHE DID HAVE FLU-LIKE SYMPTOMS WHICH RESOLVED WITHIN A FEW DAYS. FOR HER MULTIPLE MYELOMA SHE IS TAKEN OFF HER CHEMOTHERAPY AND IS BEING PREPARED FOR CAR T-CELL THERAPY. IN THE NEAR FUTURE SHE WILL BE GOING TO [place], WILL BE RECEIVING THERAPY FOR ABOUT 10 DAYS IN THE HOSPITAL AND THEN SHE WOULD RESIDE IN THE [facility] FOR ABOUT 6 WEEKS. AT PRESENT SHE DOES NOT HAVE ANY COUGH WHEEZING OR SHORTNESS OF BREATH AT REST. NOTED ABOVE SHE DOES HAVE SOMEWHAT MORE PRONOUNCED SHORTNESS OF BREATH ON WALKING AROUND. SHE IS ADVISED TO KEEP SYMBICORT AND VENTOLIN ON HAND BUT NOT. USE THEM ACTIVELY [facility] Medical History Chronic diarrhea Urinary incontinence, urge Urinary frequency Urinary urgency Pneumonia Acute exacerbation of chronic obstructive pulmonary disease Chronic cough Generalized anxiety disorder Costochondritis Dyspnea on exertion COPD (chronic obstructive pulmonary disease) Anxiety Cataract Bladder cancer GERD (gastroesophageal reflux disease) Asthma IBS (irritable bowel syndrome) Hypertension Multiple myeloma Surgical History History of esophagogastroduodenoscopy (EGD) H/O colonoscopy History of eyelid surgery History of tonsillectomy H/O wrist surgery H/O eye surgery History of arthroscopy of both knees H/O rotator cuff surgery H/O cardiac catheterization Family History Father Pancreatic cancer Diabetes Stroke Mother No problems noted. Sister Diabetes Son No problems noted. Social History Household Members: Spouse Housing: Condominium Are you a primary care management coordinator to a significant other at home: No Do you presently have visiting nurse or other home services: Yes (VNA) Alcohol intake: never Patient Tobacco Use Status: Former Tobacco user Tobacco use type: Cigarette e-Cigarette/Vaping Use: Never Used Second Hand Smoke Exposure: No Advance Directives Date on File: 07/20/23 service: No Current occupational status: retired Cognitive needs: No Hearing needs: No Vision needs: Yes Review of Systems Const All systems reviewed & are unremarkable except as noted in HPI and below Eyes Reports no additional complaints ENT Reports no additional complaints, Denies nasal congestion and Denies nasal discharge Card Reports chest pain (Intermittent nonspecific), Denies irregular heart rhythm and Denies leg edema Resp Reports as per HPI and Reports cough GI Reports heartburn (Controlled with Protonix) Reports no additional complaints Musc Reports no additional complaints Skin/Breast Reports system reviewed and no additional complaints, except as documented Neuro Reports no additional complaints Psych Reports anxiety Physical Exam Vital Signs: Last Vital Signs Pulse 70 10/18/23 11:18 BP 130/62 10/18/23 11:18 Pulse Ox 98 10/18/23 11:18 Oxygen Delivery Method Room Air 10/18/23 11:18 BMI result Body Mass Index 30.7 Const General: no acute distress, alert and awake Orientation/consciousness: patient oriented x3 HEENT Head: Yes normal to inspection General nose exam: No nasal polyps present and No nasal discharge present Face and sinus: Yes sinuses nontender Mouth: oropharynx normal Throat: Yes posterior oropharynx normal Eyes General: appearance normal, both eyes and all related structures Neck Neck: Yes normal visual inspection, Yes no lymphadenopathy, Yes trachea midline and Yes no JVD Thyroid: Thyroid normal Chest Chest palpation & inspection: normal inspection of the chest, normal palpation of entire chest wall and no tenderness Resp Other: Percussion note resonant, breath sounds are distant, but no wheezes rhonchi or crepitations are heard Cardio Palpation: normal PMI Rate: regular rate Rhythm: regular rhythm Heart sounds: no gallops and no murmurs GI Palpation (GI): Soft to palpation, nontender, No hepatosplenomegaly present and no masses Auscultation: normal bowel sounds Back/Spine/Pelvis Thoracic/Lumbar Spine: thoracic and lumbar spine normal to inspection Skin General skin exam: no rashes or lesions noted Neuro General: patient oriented x3 and no focal motor deficits Cranial nerves: Yes CN's II-XII intact bilaterally Extrem General: Yes normal to inspection, Yes no clubbing, cyanosis or edema and Yes no calf tenderness Psych Appearance: grossly normal and well kempt Speech and movement: Normal speech and movement present Assessment & Plan Assessment & Plan (1) COPD (chronic obstructive pulmonary disease): Comment: She does have evidence of mild to moderate degree of CHRONIC OBSTRUCTIVE PULMONARY DISEASE, in addition to symptoms of mild bronchial asthma. At present well controlled even without using Symbicort. Code(s): J44.9 - Chronic obstructive pulmonary disease, unspecified Plan: Advised to use albuterol HFA 2 puffs Q 4-6 hours only p.r.n.. AND ALSO KEEP SYMBICORT 160-4.5 2 PUFFS BID ON HAND (2) Dyspnea on exertion: Comment: Mild to moderate, multifactorial, currently stable . Code(s): R06.00 - Dyspnea, unspecified Plan: Had a good discussion , and re-assured Coding Level of Care Code Est Pt Level 3 (64110) Diagnoses COPD (chronic obstructive pulmonary disease) J44.9 Dyspnea on exertion R06.00
== END 2023-10-18 11:48 | disposition home or self-care (01) ==
PROVIDERS: PCP Internal Medicine; Visit Provider Internal Medicine
DX: J44.9 Chronic obstructive pulmonary disease, unspecified (principal); R06.00 Dyspnea, unspecified
CPT/HCPCS: 99213

== ENCOUNTER → 2023-10-18 11:12 | Outpatient (BNVA) | payer MEDICARE, SELFPAY | PROVIDERS: PCP Internal Medicine; Visit Provider Internal Medicine | DX: J44.9 Chronic obstructive pulmonary disease, unspecified (principal); R06.00 Dyspnea, unspecified | CPT/HCPCS: 99212 ==

== ENCOUNTER 2023-10-23 07:08 | Outpatient (REF) | payer MEDICARE, SELFPAY ==
--- NOTE | ~2023-10-23 | PE_ITS ---
EXAMINATION: Fluorine-18 FDG PET/CT Scan CLINICAL INDICATION: Subsequent treatment management. Refractory multiple myeloma. PROCEDURE: 55 minutes following the intravenous administration of 22.0 mCi of fluorine 18 FDG, images of the whole body were obtained using a combined PET/CT scanner with CT scan based attenuation correction. No oral contrast was administered. No intravenous contrast was administered. Transverse, coronal, sagittal, and volume reconstruction projections were obtained. The patient's blood glucose as determined by a finger stick, was 115 mg/dl immediately prior to injection. Total CT exam dose-length product 1082.47 mGy-cm * These CT images were obtained using dose optimization techniques as appropriate, variously including the following: Automated exposure control * Adjustment of mA and/or kV according to patient size (this includes techniques or standardized protocols for targeted exams where dose is matched to indication/reason for exam; i.e. extremities or head) * Use of iterative reconstruction technique COMPARISON: A previous PET CT scan dated 12/07/[address] myeloma survey dated 06/05/2023 are available for comparison. FINDINGS: NECK AND HEAD: There is a new lytic lesion through the full thickness of the calvarium in the left posterior parietal bone measuring 1.9 cm in largest dimension reviewed on the sagittal views. This shows mild FDG activity showing SUVmax 7.1, slice 23/267. This was not present on the prior 04/08/2017 PET/CT scan. There are no additional foci of abnormal FDG activity in the neck or head. No additional lytic lesions are present in the calvarium. THORAX: Osseous lesions are discussed subsequently. There are no foci of abnormal FDG activity within the chest. No suspicious pulmonary nodules are visualized. There is no pleural or pericardial fluid, or pneumothorax. There is no mediastinal, supraclavicular, or axillary lymphadenopathy. ABDOMEN AND PELVIS: There is mild FDG activity throughout the gastrointestinal tract without a suspicious focal component, likely physiological. There is diverticulosis without evidence of diverticulitis. The hollow viscera are otherwise unremarkable. The liver and spleen are unremarkable. There is a small amount of dependent sludge present in the gallbladder. The latter was not definitely present on the prior 12/07/2016 PET/CT scan. The gallbladder is otherwise unremarkable. There is an exophytic 5.0 cm fluid density cyst extending anterolaterally from the upper pole of the left kidney. This is markedly FDG photopenic and is significantly larger than on the 12/07/2016 PET/CT scan when this measured 2.7 cm. The kidneys are otherwise unremarkable. The adrenal glands and pancreas are unremarkable. The pelvic organs are unremarkable. There is no retroperitoneal, mesenteric, pelvic or inguinal lymphadenopathy. MUSCULOSKELETAL: In addition to the mildly FDG avid lytic lesion in the left parietal bone previously described, there is an intense lytic FDG avid focus in the lateral aspect of the left second rib, SUVmax 6.9, slice 83/267. This was not present on 12/07/2016.c in the inferior lateral aspect of the left scapula, SUVmax 2.1, slice 103/267. This is much less intense than this focus on 12/07/2016 when it showed SUVmax 7.3. The lytic lesion appears slightly smaller than on 12/07/2016, now measured in the coronal plane and shows maximum dimension 2.70 previously in the same projection it measured 3.2 cm. There is a sclerotic focus in the posterior aspect of the left fifth rib with no associated abnormal FDG activity that was not present on 12/07/2016 and likely represents a healing fracture. This was present and appears unchanged from the diagnostic CT scan of the chest dated 11/01/2022. There is an additional sclerotic focus in the posterolateral aspect of the right eighth rib with no associated abnormal FDG activity that may also represent a healing fracture and this was also present on 11/01/2022 but not the less recent 12/07/2016 PET/CT scan. There is a small new FDG avid focus posteriorly in the inferior ramus of the right pubic bone showing SUVmax 3.3, slice 244/267, associated with a new lytic lesion on the CT images that measures approximately 1.8 x 1.1 cm in largest transverse dimensions. There is very mild diffusely increased activity in both knees, predominantly in the joint space and probably due to a mild inflammatory arthritis. Similar mild FDG activity is present in the shoulders bilaterally is also likely arthritic in etiology. No other foci of abnormal FDG activity are present in the osseous structures. There are no additional suspicious sclerotic or lytic lesions visualized. VASCULAR: Vascular calcifications including coronary are noted. Reference SUVmax Levels: Mediastinal Blood Pool: 2.1, Slice 107/267 Liver: 4.6, Slice 150/267 PET/PET CT fusion whole body IMPRESSION: 1. There is a new FDG avid lytic lesion in the posterior left parietal bone consistent with a new lesion of multiple myeloma. 2. There is intense abnormal FDG activity in a lytic focus in the lateral aspect of the left second rib, also new since 12/07/2016 and also likely due to myeloma. 3. There has been a marked decrease in the FDG avidity and a mild decrease in the size of an FDG avid lytic lesion previously present on 12/07/2016 in the inferior lateral aspect of the left scapula. 4. New sclerotic foci in the posterior aspect of the left fifth rib an another in the right eighth rib, both with no associated abnormal FDG activity. These are new since 12/07/2016 but were present on the 11/01/[address] scan. They probably represent healing fractures. 5. A mildly FDG avid lytic lesion in the posterior aspect of the right inferior pubic ramus also likely represents a new lesion of myeloma. 6. No additional abnormalities are present which are strongly suspicious for additional metastatic or malignant lesions. 7. Cholelithiasis. 8. Vascular calcifications including coronary.
== END 2023-10-23 07:09 | disposition home or self-care (01) ==
LOC: HO.PET 07:08
PROVIDERS: PCP Internal Medicine; Visit Provider Internal Medicine Medical Oncology
DX: Z13.89 Encounter for screening for other disorder (principal)

== ENCOUNTER 2023-12-17 13:00 | Outpatient (AMB) | payer MEDICARE, SELFPAY ==
[2023-12-17 13:09] VITALS: BP 134/70; PULSE 64; O2SAT 96; BMI 29.6
--- NOTE | 2023-12-17 13:09 | MHC.PC.OV ---
Vital Signs 12/17/23 13:09 Height 5 ft 3 in Weight 167 lb BMI 29.6 BP 134/70 Blood Pressure Location Lt brachial Position Sitting Pulse 64 Pulse Source Pulse Oximeter Pulse Oximetry (%) 96 Oxygen Delivery Method Room Air Intake Visit Reasons: mm, htn Allergies oxycodone [From OXYCONTIN] Allergy (Mild, Verified 12/17/23 13:09) PRURITUS, severe itching adhesive tape Allergy (Unknown, Verified 12/17/23 13:09) BLISTERS cephalexin [Keflex] Allergy (Unknown, Verified 12/17/23 13:09) hives doxycycline [DOXYCYCLINE] Adverse Reaction (Intermediate, Verified 12/17/23 13:09) STOMACH PAINS Tobacco use date assessed: 12/17/23 Fall risk assessment: No Falls in past year Last assessed Fall Risk: 12/17/23 Dental Screening Dental Screen Date: 12/17/23 Did you have a dental visit in the last 12 months?: Yes Did you have a dental problem in the last 6 months where you did not have access to dental care?: No Was dental information given to patient?: Patient has dentist HPI mm, htn HPI Details 78-year-old overweight female with a history of multiple myeloma, hypertension GERD hypercholesterolemia COPD and generalized anxiety disorder last spoken with in July 2023. Review of the notes was in the hospital November 2023 had pleuritic chest pain ACS ruled out having Ca R-T treatment for the multiple myeloma as for the hypertension on amlodipine losartan and metoprolol. But the metoprolol was decreased to tartrate 12.5 mg every 6 hours. PET scan in October 2023 There is a new FDG avid lytic lesion in the posterior left parietal bone consistent with a new lesion of multiple myeloma. 2. There is intense abnormal FDG activity in a lytic focus in the lateral aspect of the left second rib, also new since 12/07/2016 and also likely due to myeloma. 3. There has been a marked decrease in the FDG avidity and a mild decrease in the size of an FDG avid lytic lesion previously present on 12/07/2016 in the inferior lateral aspect of the left scapula. 4. New sclerotic foci in the posterior aspect of the left fifth rib an another in the right eighth rib, both with no associated abnormal FDG activity. These are new since 12/07/2016 but were present on the 11/01/[address] scan. They probably represent healing fractures. 5. A mildly FDG avid lytic lesion in the posterior aspect of the right inferior pubic ramus also likely represents a new lesion of myeloma. 6. No additional abnormalities are present which are strongly suspicious for additional metastatic or malignant lesions. 7. Cholelithiasis. 8. Vascular calcifications including coronary. Patient has also seen Pulmonary in October continuing with Symbicort. Patient also follows up with urology and continuing to be monitored. bone marrow was done 2x, MRI pending due to a new PET scan ? brain invovement. complains of knee pain [facility] Medical History (Updated 12/17/23 @ 13:40 by Markos James MD) Hand pain Costochondritis Dysphagia, pharyngoesophageal phase Right low back pain TSH elevation Nasal congestion Hospital discharge follow-up Sepsis Tinea pedis Urinary frequency Urinary incontinence, urge Chronic diarrhea Urinary urgency Pneumonia Acute exacerbation of chronic obstructive pulmonary disease Chronic cough Generalized anxiety disorder Dyspnea on exertion COPD (chronic obstructive pulmonary disease) Anxiety Cataract Bladder cancer GERD (gastroesophageal reflux disease) Asthma IBS (irritable bowel syndrome) Hypertension Multiple myeloma Surgical History History of esophagogastroduodenoscopy (EGD) H/O colonoscopy History of eyelid surgery History of tonsillectomy H/O wrist surgery H/O eye surgery History of arthroscopy of both knees H/O rotator cuff surgery H/O cardiac catheterization Family History Father Pancreatic cancer Diabetes Stroke Mother No problems noted. Sister Diabetes Son No problems noted. Social History Household Members: Spouse Housing: Condominium Are you a primary day care center director to a significant other at home: No Do you presently have visiting nurse or other home services: Yes ([facility]) Alcohol intake: never Patient Tobacco Use Status: Former Tobacco user Tobacco use type: Cigarette e-Cigarette/Vaping Use: Never Used Second Hand Smoke Exposure: No Advance Directives Date on File: 07/20/23 service: No Current occupational status: retired Cognitive needs: No Hearing needs: No Vision needs: Yes Questionnaire PHQ-9 Over the last 2 weeks, how often have you been bothered by any of the following problems? 1. Little interest or pleasure in doing things: not at all 2. Feeling down, depressed, or hopeless: not at all 3. Trouble falling or staying asleep, or sleeping too much: not at all 4. Feeling tired or having little energy: not at all 5. Poor appetite or overeating: not at all 6. Feeling bad about yourself - or that you are a failure or have let yourself or your family down: not at all 7. Trouble concentrating on things, such as reading the newspaper or watching television: not at all 8. Moving or speaking so slowly that other people could have noticed. Or the opposite - being so fidgety or restless that you have been moving around a lot more than usual: not at all 9. Thoughts that you would be better off or of hurting yourself in some way: not at all Total score: 0 Depression Screening Interpretation: Negative Depression Screening Done: Yes Source: Developed by Drs. Ian Moss, Moni Maharaj, Usama Garces and colleagues, with an educational jaylon from [employer]. Thrive Questionnaire Date Thrive assessed: 12/17/23 I am a: Patient What is your living situation today?: I have a steady place to live Within the past 12 months, did the food you bought not last and you didn't have the money to get more?: Never true Within the past 12 months, did you worry whether your food would run out before you got money to buy more?: Never true Do you have trouble paying for medicines?: No Do you have trouble getting transportation to medical appointments?: No Do you have trouble paying your heating and electricity bill?: No Do you have trouble taking care of your child, family member or friend?: No Do you have trouble with day-to-day activities such as bathing, preparing meals, shopping, managing finances, etc.?: No Are you currently unemployed and looking for a job?: No Are you interested in more education?: No Currently or been in a relationship where the following occur: no concerns reported THRIVE Score: 0 AUDIT C Alcohol Use Questionnaire (AUDIT-C) 1. How often do you have a drink containing alcohol?: Never 2. How many drinks containing alcohol do you have on a typical day when you are drinking?: 1 or 2 3. How often do you have six or more drinks on one occasion?: Never Total Score: 0 Score Reviewed/Action Taken: No JAMAICA-7 AMB Questionnaire JAMAICA-7 Date JAMAICA - 7 assessed: 12/17/23 Feeling nervous, anxious, or on edge: 0 = Not at all Not being able to stop or control worryin = Not at all Worrying too much about different things: 0 = Not at all Trouble relaxin = Not at all Being so restless that it is hard to sit still: 0 = Not at all Becoming easily annoyed or irritable: 0 = Not at all Feeling afraid as if something awful might happen: 0 = Not at all Total J[place]-7 score (0-4 normal; 5-9 mild; 10-14 moderate; 15-21 severe): 0 Source: Developed by Drs. Ian Moss, Moni Maharaj, Usama Garces and colleagues, with an educational jaylon from [employer]. Physical exam (Primary Care) Vital Signs: Last Vital Signs Pulse 64 12/17/23 13:09 BP 134/70 12/17/23 13:09 Pulse Ox 96 12/17/23 13:09 Oxygen Delivery Method Room Air 12/17/23 13:09 BMI result Body Mass Index 29.6 Tobacco/Smoking Status: Tobacco use Status Tobacco use date assessed 12/17/23 12/17/23 13:19 Patient Tobacco Use Status Former Tobacco user 12/17/23 13:19 Tobacco use type Cigarette 12/17/23 13:19 e-Cigarette/Vaping Use Never Used 12/17/23 13:19 PHQ-9: PHQ-9 Score PHQ-9: Total score 0 12/17/23 13:20 Depression Screening Interpretation: Negative Thrive Assessment: Date of Thrive Assessment Date Thrive assessed 12/17/23 12/17/23 13:19 Currently or been in a relationship where the following occur: no concerns reported Const General: alert; No acute distress Eyes Conjunctivae: conjunctivae normal Resp Auscultation: clear to auscultation bilaterally Cardio Rate: regular rate Rhythm: regular rhythm GI Inspection: Yes normal to inspection Extrem General: Yes normal to inspection and No edema Assessment and Plan Assessment & Plan (1) Multiple myeloma: Comment: Most of her complaints, her pertaining to her multiple myeloma. She is relatively happy that the current med ( Velcade ) is working better . Code(s): C90.00 - Multiple myeloma not having achieved remission Qualifiers: Multiple myeloma remission status: unspecified Qualified Code(s): C90.00 - Multiple myeloma not having achieved remission Plan: Patient continued to be followed up by hematology oncology and on treatment (2) Hypertension: Code(s): I10 - Essential (primary) hypertension Qualifiers: Hypertension type: essential hypertension Qualified Code(s): I10 - Essential (primary) hypertension Plan: Continue with blood pressure medication. Decrease salt intake and exercise amlodipine 5 mg once a day losartan 100 mg once a day and metoprolol. (3) GERD (gastroesophageal reflux disease): Code(s): K21.9 - Gastro-esophageal reflux disease without esophagitis Qualifiers: Esophagitis presence: without esophagitis Qualified Code(s): K21.9 - Gastro-esophageal reflux disease without esophagitis Plan: Avoid the foods that causes that usually spicy foods, tomato products, juices, coffee, soda and foods that your sensitive to. After eating do not lie down, allow 3-4 hours before in lie down. And keep the head of bed above 30 degrees to avoid the acid from going up. (4) COPD (chronic obstructive pulmonary disease): Comment: She does have evidence of mild to moderate degree of CHRONIC OBSTRUCTIVE PULMONARY DISEASE, in addition to symptoms of mild bronchial asthma. At present well controlled even without using Symbicort. Code(s): J44.9 - Chronic obstructive pulmonary disease, unspecified Plan: Patient follows up with Pulmonary and continuing with the inhalers (5) Generalized anxiety disorder: Code(s): F41.1 - Generalized anxiety disorder Plan: Continue with therapy (6) Hypercholesterolemia: Code(s): E78.00 - Pure hypercholesterolemia, unspecified Plan: Avoid fried foods, chicken skin, eggs, butter margarine, pastries and meat. Be it pork or beef they have a lot of cholesterol on atorvastatin 20 mg once a day Medications: Changed From pantoprazole 40 mg PO BID 90 days 180 tabs 1RF To pantoprazole 40 mg PO QAM 90 days 90 tabs 1RF From sulfamethoxazole-trimethoprim 800-160 mg 1 tab PO DAILY 30 tabs 4RF To sulfamethoxazole-trimethoprim 800-160 mg 1 tab PO .M, W, F 30 tabs 4RF From gabapentin 100 mg PO TID To gabapentin 100 mg PO TID 90 days 270 caps 1RF Coding Level of Care Code Est Pt Level 4 (57465) Diagnoses Multiple myeloma, remission status unspecified C90.00 Multiple myeloma remission status: unspecified Essential hypertension I10 Hypertension type: essential hypertension Gastroesophageal reflux disease without esophagitis K21.9 Esophagitis presence: without esophagitis COPD (chronic obstructive pulmonary disease) J44.9 Generalized anxiety disorder F41.1 Hypercholesterolemia E78.00 Additional Codes PHQ-9 - 47449 - PHQ-9 Billing: ([id number])
== END 2023-12-17 14:25 | disposition home or self-care (01) ==
PROVIDERS: PCP Internal Medicine; Visit Provider Internal Medicine
DX: J44.9 Chronic obstructive pulmonary disease, unspecified (principal); C90.00 Multiple myeloma not having achieved remission; I10 Essential (primary) hypertension; K21.9 Gastro-esophageal reflux disease without esophagitis; F41.1 Generalized anxiety disorder; E78.00 Pure hypercholesterolemia, unspecified
CPT/HCPCS: 99214

== ENCOUNTER 2023-12-27 09:58 | Outpatient (AMB) | payer MEDICARE, SELFPAY ==
--- NOTE | 2023-12-27 10:16 | A.OFFVIS_ITS ---
Vital Signs 12/27/23 10:17 Height 5 ft 3 in Weight 167 lb BMI 29.6 Intake Visit Reasons: OV-B/L knee injection/ last inj. 09/14/23 Intake Note: Moni is a 78 year old female who presents today for bilateral knee injections. He last injections were administered bilaterally on 09/08/23. If cortisone was not helpful we can discuss gel. Patient reports that this last injection was not helpful and she would like to proceed with gel injections. Allergies oxycodone [From OXYCONTIN] Allergy (Mild, Verified 12/17/23 13:09) PRURITUS, severe itching adhesive tape Allergy (Unknown, Verified 12/17/23 13:09) BLISTERS cephalexin [Keflex] Allergy (Unknown, Verified 12/17/23 13:09) hives doxycycline [DOXYCYCLINE] Adverse Reaction (Intermediate, Verified 12/17/23 13:09) STOMACH PAINS HPI HPI OV-B/L knee injection/ last inj. 09/14/23: Details: Moni is a 78 year old female who presents today for bilateral knee injections. He last injections were administered bilaterally on 09/08/23. If cortisone was not helpful we can discuss gel. Patient reports that this last injection was not helpful and she would like to proceed with gel injections. [facility] Medical History (Updated 12/29/23 @ 09:45 by Rajeev Horn MD) Hand pain Costochondritis Dysphagia, pharyngoesophageal phase Right low back pain TSH elevation Nasal congestion Hospital discharge follow-up Sepsis Tinea pedis Urinary frequency Urinary incontinence, urge Chronic diarrhea Urinary urgency Pneumonia Acute exacerbation of chronic obstructive pulmonary disease Chronic cough Generalized anxiety disorder Dyspnea on exertion COPD (chronic obstructive pulmonary disease) Anxiety Cataract Bladder cancer GERD (gastroesophageal reflux disease) Asthma IBS (irritable bowel syndrome) Hypertension Multiple myeloma Surgical History History of esophagogastroduodenoscopy (EGD) H/O colonoscopy History of eyelid surgery History of tonsillectomy H/O wrist surgery H/O eye surgery History of arthroscopy of both knees H/O rotator cuff surgery H/O cardiac catheterization Family History Father Pancreatic cancer Diabetes Stroke Mother No problems noted. Sister Diabetes Son No problems noted. Social History Household Members: Spouse Housing: Condominium Are you a primary director day care center to a significant other at home: No Do you presently have visiting nurse or other home services: Yes ([facility]) Alcohol intake: never Patient Tobacco Use Status: Former Tobacco user Tobacco use type: Cigarette e-Cigarette/Vaping Use: Never Used Second Hand Smoke Exposure: No Advance Directives Date on File: 07/20/23 service: No Current occupational status: retired Cognitive needs: No Hearing needs: No Vision needs: Yes Physical Exam Vital Signs: BMI result Body Mass Index 29.6 Extrem Other: global non specific ttp bilateral knees/ there is varus contracture of r>l bilateral knees. Assessment & Plan Assessment & Plan (1) Osteoarthritis of knees, bilateral: Code(s): M17.0 - Bilateral primary osteoarthritis of knee Category: Medical Plan: Bialteral knee OA. Her current complaint, however, seems more attributable to systemic inflammation/ pain. She was on chronic steroid for 8 years until ~ 6 months ago and her pain seems to have been uncontrollable since then. We discussed endocrine vs rheum referral and both were made. She can see me at any time but no acute intervention warranted now. Orders: Referrals Rheumatology Referral Z79.52 - rodent exterminator (current) use of systemic steroids Endocrinology Referral Z79.52 - rodent exterminator (current) use of systemic steroids Coding Level of Care Code Est Pt Level 4 (89127) Diagnoses Osteoarthritis of knees, bilateral M17.0
[2023-12-27 10:17] VITALS: BMI 29.6
== END 2023-12-27 11:11 | disposition home or self-care (01) ==
PROVIDERS: PCP Internal Medicine; Visit Provider Orthopaedic Surgery
DX: M17.0 Bilateral primary osteoarthritis of knee (principal)
CPT/HCPCS: 99213

== ENCOUNTER → 2023-12-27 09:58 | Outpatient (BNVA) | payer MEDICARE, SELFPAY | PROVIDERS: PCP Internal Medicine; Visit Provider Orthopaedic Surgery | DX: M17.0 Bilateral primary osteoarthritis of knee (principal) | CPT/HCPCS: 99212 ==

== ENCOUNTER 2024-01-03 15:10 | Outpatient (REF) | payer MEDICARE, SELFPAY ==
--- NOTE | ~2024-01-03 | MM_ITS ---
EXAMINATION: MM SCREENING DIGITAL BREAST TOMOSYNTHESIS, BILATERAL CLINICAL INFORMATION: Screening. Asymptomatic. COMPARISON: Mammography: This study is compared with prior exams dating back to 2016. TECHNIQUE: Digital breast tomosynthesis is performed in both the craniocaudal and mediolateral oblique views along with computer-aided detection (CAD). Synthesized 2D images are generated from the tomosynthesis. FINDINGS: There are scattered areas of fibroglandular density (ACR BI-RADS breast composition Category b). There are no significant masses, abnormal calcifications, or other abnormalities. MM/MM tomosynthesis screening BI IMPRESSION: No mammographic evidence of malignancy. ASSESSMENT: BI-RADS BI-RADS 1 - Negative RECOMMENDATION: Routine annual mammography screening. 1 year F/U This examination should not preclude the clinical evaluation of a suspicious palpable abnormality. This patient's information was entered into a reminder system with a target due date for their next mammogram.
== END 2024-01-03 15:11 | disposition home or self-care (01) ==
LOC: HO.MAMMO 15:10
PROVIDERS: PCP Internal Medicine; Visit Provider Internal Medicine
DX: Z12.31 Encounter for screening mammogram for malignant neoplasm of breast (principal)
CPT/HCPCS: 77063; 77067

== ENCOUNTER → 2024-01-03 15:30 | Outpatient (BNV) | payer MEDICARE, SELFPAY | PROVIDERS: PCP Internal Medicine; Visit Provider Radiology Diagnostic Radiology | DX: Z12.31 Encounter for screening mammogram for malignant neoplasm of breast (principal) | CPT/HCPCS: 77063; 77067 ==

== ENCOUNTER 2024-01-14 09:48 | Outpatient (AMB) | payer MEDICARE, SELFPAY ==
[2024-01-14 10:02] VITALS: BP 120/60; PULSE 64; BMI 30.7
--- NOTE | 2024-01-14 10:02 | MHC.OFFVIS ---
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 Accompanied by: Self / Same As Patient Allergies oxycodone [From OXYCONTIN] Allergy (Mild, Verified 12/17/23 13:09) PRURITUS, severe itching adhesive tape Allergy (Unknown, Verified 12/17/23 13:09) BLISTERS cephalexin [Keflex] Allergy (Unknown, Verified 12/17/23 13:09) hives doxycycline [DOXYCYCLINE] Adverse Reaction (Intermediate, Verified 12/17/23 13:09) STOMACH PAINS Medication List - Last Reconciled 01/14/24 by Bladimir Mcgee MD acetaminophen (Tylenol Extra Strength) 1,000 mg PO Q6H PRN albuterol sulfate 90 mcg/actuation (Ventolin HFA) 2 puffs inhalation Q4-6H PRN 30 days amlodipine 5 mg PO DAILY ascorbate calcium (vitamin C) 500 mg PO DAILY atorvastatin 20 mg PO DAILY cholecalciferol (vitamin D3) 50 mcg PO DAILY codeine-guaifenesin 10-100 mg/5 mL 10 mL PO BID PRN desvenlafaxine succinate ER 25 mg PO DAILY diphenoxylate-atropine 2.5-0.025 mg 1 tab PO DAILY PRN gabapentin 100 mg PO TID 90 days hydrocodone-acetaminophen 5-325 mg 1 tab PO Q4H PRN lorazepam 0.5 mg PO BID PRN losartan 100 mg PO DAILY mecobalamin (vitamin B12) (B12 Active) 1,000 mcg PO DAILY metoprolol succinate ER 50 mg PO DAILY multivitamin 1 tab PO DAILY pantoprazole 40 mg PO QAM 90 days sulfamethoxazole-trimethoprim 800-160 mg 1 tab PO .M, W, F Symbicort 160-4.5 mcg/actuation (budesonide-formoterol) 2 puffs PO BID NS triamcinolone acetonide (Nasacort Allergy) 1 spray intranasal DAILY valacyclovir 500 mg PO DAILY HPI Comments Details: 77-year-old female here for f/u.. She has background history of multiple myeloma and COPD. She had Lexiscan April 2019. During the test she had bilateral shoulder pain and chest discomfort. She had no EKG changes. Perfusion imaging was normal. Echocardiography from September 2019 reviewed showing normal biventricular function with diastolic dysfunction and elevated filling pressures. After discussion she was to the cardiac catheterization. Her left and right heart catheterization both were normal with no coronary disease or elevated filling pressures at rest. She has recurrent multiple myeloma and has been started on Velcade. She has significant episodes of profuse sweating. She has shortness of breath with activity. She has no chest discomfort. she has lytic bone lesions based on CT scan performed recently. 01/14/24: She returns for follow-up. She is undergoing CAR T-cell therapy in [place]. She is denying any chest pain or shortness of breath. Blood pressure is well controlled. [facility] Medical History (Updated 12/29/23 @ 09:45 by Rajeev Horn MD) Hand pain Costochondritis Dysphagia, pharyngoesophageal phase Right low back pain TSH elevation Nasal congestion Hospital discharge follow-up Sepsis Tinea pedis Urinary frequency Urinary incontinence, urge Chronic diarrhea Urinary urgency Pneumonia Acute exacerbation of chronic obstructive pulmonary disease Chronic cough Generalized anxiety disorder Dyspnea on exertion COPD (chronic obstructive pulmonary disease) Anxiety Cataract Bladder cancer GERD (gastroesophageal reflux disease) Asthma IBS (irritable bowel syndrome) Hypertension Multiple myeloma Surgical History History of esophagogastroduodenoscopy (EGD) H/O colonoscopy History of eyelid surgery History of tonsillectomy H/O wrist surgery H/O eye surgery History of arthroscopy of both knees H/O rotator cuff surgery H/O cardiac catheterization Family History Father Pancreatic cancer Diabetes Stroke Mother No problems noted. Sister Diabetes Son No problems noted. Social History Household Members: Spouse Housing: Condominium Are you a primary primary care nurse to a significant other at home: No Do you presently have visiting nurse or other home services: Yes ([facility]) Alcohol intake: never Patient Tobacco Use Status: Former Tobacco user Tobacco use type: Cigarette e-Cigarette/Vaping Use: Never Used Second Hand Smoke Exposure: No Advance Directives Date on File: 07/20/23 service: No Current occupational status: retired Cognitive needs: No Hearing needs: No Vision needs: Yes Review of Systems Const Denies chills, Denies fatigue, Denies fever(s), Denies frequent falls, Denies weakness, Denies weight gain and Denies weight loss ENT Denies dizziness Card Denies chest pain, Denies leg edema, Denies lightheadedness, Denies palpitations, Denies dyspnea and Denies dyspnea on exertion Resp Denies cough, Denies dyspnea and Denies dyspnea on exertion GI Denies hematochezia Musc Denies abnormal gait, Denies muscle weakness, Denies numbness, Denies radiating pain into limb and Denies tingling Neuro Denies abnormal gait, Denies dizziness, Denies frequent falls, Denies numbness, Denies tingling and Denies weakness Endo Denies fatigue and Denies palpitations Physical Exam Vital Signs: Last Vital Signs Pulse 64 01/14/24 10:02 BP 120/60 01/14/24 10:02 BMI result Body Mass Index 30.7 GENERAL APPEARANCE: in no acute distress, well developed, well nourished. NECK/THYROID: no carotid bruit, no jugular venous distention. SKIN: no suspicious lesions, warm and dry. HEART: no murmurs, regular rate and rhythm, S1, S2 normal. LUNGS: clear to auscultation bilaterally. ABDOMEN: normal, bowel sounds present, soft, nontender, nondistended. EXTREMITIES: no clubbing, cyanosis, or edema. PERIPHERAL PULSES: equal. NEUROLOGIC: nonfocal, alert and oriented.. Office Procedures EKG Details: Sinus rhythm 64 beats per minute, normal axis, normal ECG, QTC 404 milliseconds. [id number], Complete Assessment & Plan Assessment & Plan (1) Hypertension: Code(s): I10 - Essential (primary) hypertension Category: Medical Qualifiers: Hypertension type: essential hypertension Qualified Code(s): I10 - Essential (primary) hypertension (2) Dyspnea on exertion: Comment: Mild to moderate, multifactorial, currently stable . Code(s): R06.00 - Dyspnea, unspecified Category: Medical (3) Multiple myeloma: Comment: Most of her complaints, her pertaining to her multiple myeloma. She is relatively happy that the current med ( Velcade ) is working better . Code(s): C90.00 - Multiple myeloma not having achieved remission Category: Medical Qualifiers: Multiple myeloma remission status: unspecified Qualified Code(s): C90.00 - Multiple myeloma not having achieved remission Plan Pleasant 78 year female who is here for follow-up. She has background of dyspnea on exertion which she is saying is stable.. Clinically not in heart failure. She had cardiac catheterization before which did not show any significant coronary disease she is getting CAR T cell therapy for multiple myeloma. She is saying that she is tolerating it well and seems optimistic about outcomes. No major cardiovascular issues currently. She had echocardiography performed while she was at [facility] before chemo and CAR T cell therapy. She will continue to follow up with us once a year. Thank you for allowing me to participate in the care of your patient. Please feel free to contact me if you have any questions. Coding Level of Care Code Est Pt Level 3 (46515) Diagnoses Essential hypertension I10 Hypertension type: essential hypertension Dyspnea on exertion R06.00 Multiple myeloma, remission status unspecified C90.00 Multiple myeloma remission status: unspecified CPT Codes EKG - CPT: 35969-[id number], Complete ([id number])
== END 2024-01-14 10:31 | disposition home or self-care (01) ==
PROVIDERS: Visit Provider Internal Medicine Cardiovascular Disease
DX: I10 Essential (primary) hypertension (principal); R06.00 Dyspnea, unspecified; C90.00 Multiple myeloma not having achieved remission
CPT/HCPCS: 93010; 99213

== ENCOUNTER → 2024-01-14 09:48 | Outpatient (BNVA) | payer MEDICARE, SELFPAY | PROVIDERS: Visit Provider Internal Medicine Cardiovascular Disease | DX: C90.00 Multiple myeloma not having achieved remission (principal); R06.00 Dyspnea, unspecified; I10 Essential (primary) hypertension; J44.9 Chronic obstructive pulmonary disease, unspecified; Z98.890 Other specified postprocedural states | CPT/HCPCS: 93005; 99212 ==

== ENCOUNTER 2024-02-18 08:18 | Day surgery (SDC) | payer MEDICARE, SELFPAY ==
[2024-02-14 11:07] VITALS: BMI 30.6
--- NOTE | 2024-02-18 07:41 | P.HPSUR_ITS ---
Pre-Procedural Eval Section A - 24 Hr Update-Section A only Date of Service: 02/18/24 The patient is an INPATIENT: No The patient has been examined within 24 hours of the surgical procedure. The History & Physical has been completed within 30 days and I have reviewed it.: No Section B - Complete if H&P > 30 days Chief Complaint: Dysphagia, abd pain, diarrhea Relevant Family History (Specify if Yes): Yes Relevant Social History: Tobacco Use (Former smoker) Present Medications: see Short Stay Collaborative assessment Medical History: Significant History (Chronic diarrhea Urinary incontinence, urge Urinary frequency Urinary urgency Pneumonia Acute exacerbation of chronic obstructive pulmonary disease Chronic cough Generalized anxiety disorder Costoch ondritis Dyspnea on exertion COPD (chronic obstructive pulmonary disease) Anxiety Cataract Bladder can) History of Previous Operations: Relevant previous surgery/procedure and date(s) (History of esophagogastroduodenoscopy (EGD) H/O colonoscopy History of eyelid surgery History of tonsillectomy H/O wrist surgery H/O eye surgery History of arthroscopy of both knees H/O rotator cuff surgery H/O cardiac catheterization) Allergies: Allergies Allergy/AdvReac Type Severity Reaction Status Date / Time oxycodone [From OXYCONTIN] Allergy Mild PRURITUS, Verified 12/17/23 13:09 severe itching adhesive tape Allergy Unknown BLISTERS Verified 12/17/23 13:09 cephalexin [Keflex] Allergy Unknown hives Verified 12/17/23 13:09 doxycycline [DOXYCYCLINE] AdvReac Intermediate STOMACH Verified 12/17/23 13:09 PAINS Review of Systems Sugical H&P ROS: Negative: Constitution, Cardiovascular and Respiratory Exam Surgical H&P Exam: Normal: Heart, Normal: Lungs, Normal: Extremities and Normal: Abdomen Plan Diagnosis/Plan: Unchanged I have reviewed the history and physical and performed a pertinent physical examination on my patient. No changes have occurred unless specified. Time Spent With Patient Time: Total time managing care of this patient today ____ minutes.
[2024-02-18 08:28] VITALS: BMI 29.6
[2024-02-18] MEDS: Lactated Ringers 1,000 ML 50 ML IVCONT (08:55)
--- NOTE | 2024-02-18 09:18 | HO.ANESPROP2 ---
[facility] Active Problems Active Problems: All Active Problems Current chronic use of systemic steroids (Acute) Osteoarthritis of knees, bilateral (Acute) Bilateral knee pain (Acute) Postprandial epigastric pain (Acute) Upper respiratory tract infection (Acute) COVID-19 virus infection (Acute) Rotator cuff impingement syndrome of right shoulder (Acute) Chronic right shoulder pain (Acute) Cancer related pain (Acute) Wrist pain, right (Acute) Cholelithiasis (Acute) Hyperkalemia (Acute) Generalized anxiety disorder (Acute) History of foot surgery (Acute) Insomnia (Acute) Hypercholesterolemia (Acute) Bilateral carotid artery stenosis (Acute) Multiple myeloma (Acute) Chronic diarrhea (Acute) Anxiety (Acute) Urinary urgency (Acute) Dyspnea on exertion (Acute) COPD (chronic obstructive pulmonary disease) (Acute) GERD (gastroesophageal reflux disease) (Acute) Hypertension (Acute) Past Medical History Medical History (Updated 02/18/24 @ 08:30 by Callie Buitrago RN) Abnormal finding on MRI of brain Long-term current use of intravenous immunoglobulin (IVIG) Tinea pedis Urinary incontinence, urge Urinary frequency Urinary urgency TSH elevation Nasal congestion Hospital discharge follow-up Sepsis Pneumonia Acute exacerbation of chronic obstructive pulmonary disease Chronic cough Generalized anxiety disorder Right low back pain Hand pain Dysphagia, pharyngoesophageal phase Costochondritis Dyspnea on exertion COPD (chronic obstructive pulmonary disease) Chronic diarrhea Anxiety Cataract Bladder cancer GERD (gastroesophageal reflux disease) Asthma IBS (irritable bowel syndrome) Hypertension Multiple myeloma Family History Family History Father Pancreatic cancer Diabetes Stroke Mother No problems noted. Sister Diabetes Son No problems noted. Family history of problems with anesthesia: No Surgical History Surgical History History of esophagogastroduodenoscopy (EGD) H/O colonoscopy History of eyelid surgery History of tonsillectomy H/O wrist surgery H/O eye surgery History of arthroscopy of both knees H/O rotator cuff surgery H/O cardiac catheterization History of Problems with Anesthesia: No Social History Social History Household Members: Spouse Housing: Condominium Are you a primary home health care worker to a significant other at home: No Do you presently have visiting nurse or other home services: Yes ([facility]) Alcohol intake: never Patient Tobacco Use Status: Former Tobacco user Tobacco use type: Cigarette e-Cigarette/Vaping Use: Never Used Second Hand Smoke Exposure: No Use of substances other than those prescribed or required for medical reasons: No Are you DNR?: No Advance Directives: No Advance Directives Information Provided: Yes Advance Directives Date on File: 07/20/23 service: No Current occupational status: retired Cognitive needs: No Hearing needs: No Vision needs: Yes Meds Allergies Allergy/AdvReac Type Severity Reaction Status Date / Time oxycodone [From OXYCONTIN] Allergy Mild PRURITUS, Verified 12/17/23 13:09 severe itching adhesive tape Allergy Unknown BLISTERS Verified 12/17/23 13:09 cephalexin [Keflex] Allergy Unknown hives Verified 12/17/23 13:09 doxycycline [DOXYCYCLINE] AdvReac Intermediate STOMACH Verified 12/17/23 13:09 PAINS Active Medications: Current Medications Lactated Ringer's (Lr) 1,000 mls @ 50 mls/hr IVCONT .Q20H PRABHJOT Last Admin: 02/18/24 08:55 Dose: 50 mls/hr Home Medications ?Medication ?Instructions ?Recorded ?Confirmed ?Last Taken ?Type mecobalamin (vitamin B12) 1,000 1,000 mcg PO DAILY 12/30/20 02/14/24 Unknown History mcg chewable tablet (B12 Active) desvenlafaxine succinate 25 mg 25 mg PO DAILY 09/21/23 02/14/24 Unknown History tablet,extended release 24 hr hydrocodone 5 mg-acetaminophen 325 1 tab PO Q4H PRN Breakthrough 09/21/23 02/14/24 Unknown History mg tablet Pain, Moderate acetaminophen 500 mg oral powder 1,000 mg PO Q6H PRN Pain 12/17/23 02/14/24 Unknown History packet (Tylenol Extra Strength) ascorbate calcium (vitamin C) 500 500 mg PO DAILY 12/17/23 02/14/24 Unknown History mg tablet cholecalciferol (vitamin D3) 50 50 mcg PO DAILY 12/17/23 02/14/24 Unknown History mcg (2,000 unit) capsule multivitamin 1 tab PO DAILY 12/17/23 02/14/24 Unknown History triamcinolone acetonide 55 mcg 1 spray intranasal DAILY 12/17/23 02/14/24 Unknown History nasal spray aerosol (Nasacort Allergy) Exam Height,Weight and Vital Signs: Height 5 ft 3 in Weight 75.807 kg Airway Mallampati Class: II (multiple caps , implants) TM Dist: >3cm Neck ROM: Full Heart: rrr Lungs: cta Assessment and Plan Assessment Anesthesia Assessment: Anesthesia Plan Discussed and Chart Reviewed Final Anesthetic Review Family History of Problems with Anesthesia: No History of Problems with Anesthesia: No NPO: Yes ASA Class: III Final Preanesthetic Review: No Changes in Pt Med Stat, Meds/Allgs Chart Reviewed and Consent Obtained/Reviewed Patient Risk: Intermediate Procedure Risk: Intermediate Anesthetic Plan Anesthetic Plan: MAC: Disposition: Standard PACU
--- NOTE | 2024-02-18 09:52 | P.OP_ITS ---
Operative Note Operative Note Date of Service: 02/18/24 Narrative: FLEXIBLE TRANSORAL UPPER GASTROINTESTINAL ENDOSCOPY WITH BIOPSIES AND ESOPHAGEAL BALLOON DILATION Pre-op diagnosis: GERD, Epigastric pain, Dysphagia Post-op diagnosis: GERD, Gastritis, gastric polyps, Schatzki's ring Endoscopist:? Trena Dotson MD Anesthesia:?MAC UPPER ENDOSCOPY Consent: Indications for the procedure and potential complications of bleeding, perforation, reaction to medications and missed diagnosis were discussed with the patient and informed consent was obtained. Instrument: Olympus GIF H 190 mid size upper endoscope Monitoring: Vital signs and clinical assessment, continuous EKG monitoring, Pulse oximetry, Carbon Dioxide monitoring and blood pressure monitoring were done throughout the procedure. Procedure: The patient was placed in the left lateral decubitis position and pre-procedure medications were administered and a bite block was placed. The endoscope was inserted into the mouth and advanced under direct vision to the third part of duodenum. A careful inspection was made as the upper endoscope was withdrawn including a retroflexed examination of the proximal stomach; Findings and interventions are described below. Findings: Larynx: Normal Esophagus: GE junction at 35 cms. Mildly tortuous esophagus with a nonobstructing Schatzki's ring at GE junction. Biopsies were obtained from proximal esophagus to check for EOE. Esophageal balloon dilation was performed with a 20 [place] CRE balloon x 60 seconds Stomach: A few 3-4 mm benign appearing polyps in the gastric body and fundus - biopsied. Mild diffuse gastric erythema - biopsies were obtained from the body and antrum. Grade 2 flap valve on retroflexed examination of the cardia. Duodenum: Normal bulb and descending duodenum. Biopsies were obtained from 3rd part of the duodenum to check for celiac sprue Intervention: Biopsies as noted above Impression and Post Procedure Diagnosis: Endoscopy Findings: ESOPHAGUS: GE junction at 35 cms. Mildly tortuous esophagus with a nonobstructing Schatzki's ring at GE junction. Biopsies were obtained from proximal esophagus to check for EOE. Esophageal balloon dilation was performed STOMACH: A few 3-4 mm benign appearing polyps in the gastric body and fundus - biopsied. Mild diffuse gastric erythema - biopsies were obtained from the body and antrum. DUODENUM: Normal - biopsied to check for celiac sprue Plan: Pt has a FU appointment on with 03/13/[address] Dotson. Above findings were reviewed with the patient and relevant handouts were given and the discharge area. BIOPSIES SHOWED: A. Small bowel, biopsy: Superficial fragments of small bowel mucosa within normal limits; preserved villous architecture and no increased intraepithelial lymphocytes seen. B. Stomach, antrum, biopsy: Gastric antral mucosa with mild reactive gastropathy and incomplete intestinal metaplasia; negative for Helicobacter pylori and dysplasia. C. Stomach, body, biopsy: Gastric body mucosa within normal limits; negative for Helicobacter pylori, intestinal metaplasia and dysplasia. D. Stomach, polyp, biopsy: Fundic gland polyp; negative for Helicobacter pylori, intestinal metaplasia and dysplasia. E. Esophagus, proximal, biopsy: Squamous mucosa within normal limits; negative for inflammation (including intraepithelial eosinophils), fungal organisms and intestinal metaplasia
[2024-02-18 09:54] VITALS: BP 112/44; PULSE 62; RESP 16; TEMP 36.4; O2SAT 98
[2024-02-18 10:09] VITALS: BP 117/54; PULSE 57; RESP 14; TEMP 36.4; O2SAT 98
== END 2024-02-18 10:48 | disposition home or self-care (01) ==
PROVIDERS: PCP Internal Medicine; Visit Provider Internal Medicine Gastroenterology
PROC: 0DJ08ZZ Inspection of Upper Intestinal Tract, Via Natural or Artificial Opening Endoscopic (ICD-10-PCS; CPT 43235; principal; 2024-02-18 09:20)
DX: K29.70 Gastritis, unspecified, without bleeding (principal); K22.2 Esophageal obstruction; R13.14 Dysphagia, pharyngoesophageal phase; K31.7 Polyp of stomach and duodenum; K21.9 Gastro-esophageal reflux disease without esophagitis; K80.20 Calculus of gallbladder without cholecystitis without obstruction; K52.9 Noninfective gastroenteritis and colitis, unspecified; J44.9 Chronic obstructive pulmonary disease, unspecified; C90.00 Multiple myeloma not having achieved remission; I10 Essential (primary) hypertension; Z79.51 Long term (current) use of inhaled steroids; Z79.82 Long term (current) use of aspirin; Z79.899 Other long term (current) drug therapy; Z88.6 Allergy status to analgesic agent; Z88.1 Allergy status to other antibiotic agents; L23.1 Allergic contact dermatitis due to adhesives; Z98.890 Other specified postprocedural states; Z87.891 Personal history of nicotine dependence
CPT/HCPCS: 43249; 43239; 88305; 88313; 88342; C1726; J2704

== ENCOUNTER → 2024-02-18 08:18 | Outpatient (BNV) | payer MEDICARE, SELFPAY | PROVIDERS: PCP Internal Medicine; Visit Provider Internal Medicine Gastroenterology | DX: K21.9 Gastro-esophageal reflux disease without esophagitis (principal); K29.70 Gastritis, unspecified, without bleeding; K31.7 Polyp of stomach and duodenum; K22.2 Esophageal obstruction | CPT/HCPCS: 43239; 43249 ==

== ENCOUNTER 2024-03-07 14:14 | Outpatient (AMB) | payer MEDICARE, SELFPAY ==
[2024-03-07 14:20] VITALS: BP 112/62; PULSE 71; O2SAT 98; BMI 29.3
--- NOTE | 2024-03-07 14:20 | MHC.OFFVIS ---
Vital Signs 03/07/24 14:20 Height 5 ft 3 in Weight 165 lb 9.074 oz BMI 29.3 BP 112/62 Blood Pressure Location Lt brachial Position Sitting Pulse 71 Pulse Source Pulse Oximeter Pulse Oximetry (%) 98 Oxygen Delivery Method Room Air Intake Visit Reasons: Systemic Inflammation& Pain Intake Note: New pt presents today for consult, internally referred by Ortho. Nearly a decade of corticosteroid use and now with uncontrollable systemic inflammation and pain. Allergies oxycodone [From OXYCONTIN] Allergy (Mild, Verified 03/07/24 14:24) PRURITUS, severe itching adhesive tape Allergy (Unknown, Verified 03/07/24 14:24) BLISTERS cephalexin [Keflex] Allergy (Unknown, Verified 03/07/24 14:24) hives doxycycline [DOXYCYCLINE] Adverse Reaction (Intermediate, Verified 03/07/24 14:24) STOMACH PAINS Medication List - Last Reconciled 03/07/24 by Tommy Caal MD acetaminophen (Tylenol Extra Strength) 1,000 mg PO Q6H PRN albuterol sulfate 90 mcg/actuation (Ventolin HFA) 2 puffs inhalation Q4-6H PRN 30 days amlodipine 5 mg PO DAILY ascorbate calcium (vitamin C) 500 mg PO DAILY atorvastatin 20 mg PO DAILY cholecalciferol (vitamin D3) 50 mcg PO DAILY desvenlafaxine succinate ER 25 mg PO DAILY gabapentin 100 mg PO TID 90 days lorazepam 0.5 mg PO BID PRN losartan 100 mg PO DAILY mecobalamin (vitamin B12) (B12 Active) 1,000 mcg PO DAILY meloxicam 15 mg PO DAILY methylprednisolone (Medrol (Jaylan)) PO PER PKG DIR for 6 days metoprolol succinate ER 50 mg PO DAILY multivitamin 1 tab PO DAILY sulfamethoxazole-trimethoprim 800-160 mg 1 tab PO .M, W, F Symbicort 160-4.5 mcg/actuation (budesonide-formoterol) 2 puffs PO BID NS triamcinolone acetonide (Nasacort Allergy) 1 spray intranasal DAILY valacyclovir 500 mg PO DAILY HPI Comments Details: This is an 79-year-old female with history of multiple myeloma who presents for follow-up. According to patient she was diagnosed with multiple myeloma about 8 years ago and she has been on different chemotherapeutic therapies. Per patient she had been on Decadron almost 8 years, different doses. September of 2023 she had car T treatment. Since she has been off of the Decadron. He was evaluated by Dr. Horn for bilateral knee pain. And at that time patient was having multiple joint pain. Gel injections were discussed however Dr. Horn wanted her to get full rheumatology evaluation prior to any additional injections. She also developed right hand and wrist pain and swelling. She was evaluated by Dr. Oliver 01/2024 for right hand and wrist pain. She received radiocarpal injection as well as right thumb CMC joint injection with relief. The injection also helped her knee pain. But she started having left buttock pain. She has been doing physical therapy without much improvement. She received a couple of doses of IVIG but she developed headaches. She is unaware of any family history of an autoimmune rheumatic disease. Denies any history of DVT/PE. Denies any skin rashes [facility] Medical History Abnormal finding on MRI of brain Long-term current use of intravenous immunoglobulin (IVIG) Tinea pedis Urinary incontinence, urge Urinary frequency Urinary urgency TSH elevation Nasal congestion Hospital discharge follow-up Sepsis Pneumonia Acute exacerbation of chronic obstructive pulmonary disease Chronic cough Generalized anxiety disorder Right low back pain Hand pain Dysphagia, pharyngoesophageal phase Costochondritis Dyspnea on exertion COPD (chronic obstructive pulmonary disease) Chronic diarrhea Anxiety Cataract Bladder cancer GERD (gastroesophageal reflux disease) Asthma IBS (irritable bowel syndrome) Hypertension Multiple myeloma Surgical History History of esophagogastroduodenoscopy (EGD) H/O colonoscopy History of eyelid surgery History of tonsillectomy H/O wrist surgery H/O eye surgery History of arthroscopy of both knees H/O rotator cuff surgery H/O cardiac catheterization Family History Father Pancreatic cancer Diabetes Stroke Mother No problems noted. Sister Diabetes Son No problems noted. Social History Household Members: Spouse Housing: Condominium Are you a primary acute care nurse practitioner to a significant other at home: No Do you presently have visiting nurse or other home services: Yes ([facility]) Alcohol intake: never Patient Tobacco Use Status: Former Tobacco user Tobacco use type: Cigarette e-Cigarette/Vaping Use: Never Used Second Hand Smoke Exposure: No Advance Directives Date on File: 07/20/23 service: No Current occupational status: retired Cognitive needs: No Hearing needs: No Vision needs: Yes Review of Systems Const Reports fatigue, Reports weakness and Denies weight loss Eyes Reports dry eyes and Reports itchy eyes Card Reports dyspnea Resp Reports dyspnea GI Reports diarrhea Musc Reports back pain, Reports arthralgias and Reports stiffness Skin/Breast Reports alopecia and Reports unusual bruising Neuro Reports weakness Psych Reports abnormal sleep pattern and Reports anxiety Endo Reports fatigue Aller/Immun Reports itchy eyes Physical Exam Vital Signs: Last Vital Signs Pulse 71 03/07/24 14:20 BP 112/62 03/07/24 14:20 Pulse Ox 98 03/07/24 14:20 Oxygen Delivery Method Room Air 03/07/24 14:20 BMI result Body Mass Index 29.3 Const General: cooperative, healthy appearing and comfortable Nutritional Appearance: overweight Orientation/consciousness: patient oriented x3 Limitations: no limitations HEENT Head: Yes normocephalic and Yes atraumatic Mouth: moist mucous membranes Resp Effort & Inspection: normal respiratory effort and able to speak in complete sentences Auscultation: clear to auscultation bilaterally Cardio Rate: regular rate Rhythm: regular rhythm Skin General skin exam: no rashes or lesions noted Neuro General: patient oriented x3 Extrem Other: Mild osteoarthritic changes of both hands with no active synovitis Normal nailfold capillaroscopy Normal range of motion of hands, elbows, shoulders without pain Left buttock tenderness Negative straight leg raise test bilaterally Results Reviewed Results Reviewed: ORTHO X-RAY EXAM OF HAND, 3+ VIEWS Exam Date: 01/08/2024 3:19 PM Ordering Diagnosis: Bilateral hand pain ? Date of Visit: 01/08/2024 ? Reason for visit: Bilateral hand pain ? Views: AP, lateral, oblique bilateral hands ? Comparison: None ? Findings: No fracture, dislocation or lytic lesions. Diffuse arthritic changes at the fingers and hands bilaterally. Periarticular osteopenia. Moderate bilateral thumb CMC and radiocarpal arthritis. On the right there is significant narrowing at the articulation of the capitate and lunate with sclerosis noted. Calcifications at TFCC on the right ? Impression: Diffuse arthritic changes bilateral hands cc: Markos James MD~ EXAMINATION: XR HAND, RIGHT CLINICAL INFORMATION: Pain COMPARISON: Right wrist radiograph from 04/27/2022 TECHNIQUE: PA, lateral, and oblique views of the right hand. FINDINGS: No acute visible fracture or dislocation. Mild multi joint arthritic changes with joint space narrowing and periarticular osteophyte formation. Chondrocalcinosis involving the triangular fibrocartilaginous complex. Joint spaces and alignment are otherwise maintained. Soft tissues are unremarkable. XR/XR hand RT 2V IMPRESSION: 1. No acute visible fracture or dislocation. 2. Mild multi joint arthritic changes. 3. Chondrocalcinosis involving the TFCC. Assessment & Plan Assessment & Plan (1) Polyarthralgia: Code(s): M25.50 - Pain in unspecified joint Category: Medical Plan: This is an 79-year-old female who was referred by Orthopedics for evaluation of an underlying autoimmune rheumatic disease. Patient was diagnosed with multiple myeloma about 8 years ago and has been on different chemotherapeutic/targeted treatment in addition to Decadron. She completed car T treatment earlier this year and been off of Decadron for a few months now. There is some suspicion of Decadron masking an underlying autoimmune rheumatic disease. car T treatment has been recently used to treat refractory autoimmune rheumatic diseases such as SLE and scleroderma with car T. my suspicion for an underlying autoimmune rheumatic disease is not very high however. Likely it might have been helping her osteoarthritis, potentially crystal induced arthritis such as pseudogout. There is some suspicion of pseudogout affecting her right hand. However given the association of autoimmune rheumatic disease with myelodysplastic syndromes I will order comprehensive serology to screen for underlying autoimmune rheumatic disease (2) Sciatica: Code(s): M54.30 - Sciatica, unspecified side Category: Medical Qualifiers: Laterality: left Qualified Code(s): M54.32 - Sciatica, left side Plan: Has been doing PT for months without much improvement. Check x-rays. Referred patient to pain management. Medrol Dosepak trial Plan I spent 50 minutes reviewing patient's chart, evaluating patient, ordering diagnostic workup, counseling patient and documenting in the chart Orders: Orders HARJEET Reflex Titer and Pattern Today M32.9 - Systemic lupus erythematosus, unspecified Anti Extractable Nuclear Ag Today M32.9 - Systemic lupus erythematosus, unspecified Anti DNA DS Antibody Today M32.9 - Systemic lupus erythematosus, unspecified Erythrocyte Sedimentation Rate Today M32.9 - Systemic lupus erythematosus, unspecified Sjogren's Antibodies Today M32.9 - Systemic lupus erythematosus, unspecified Comprehensive Met. Panel Today M32.9 - Systemic lupus erythematosus, unspecified Hepatitis A,B,C Profile Today Z11.59 - Encounter for screening for other viral diseases Rheumatoid Factor Today M25.50 - Pain in unspecified joint Ferritin Today M11.20 - Other chondrocalcinosis, unspecified site Complement C3 Today M32.9 - Systemic lupus erythematosus, unspecified Complement C4 Today M32.9 - Systemic lupus erythematosus, unspecified C Reactive Protein Today M32.9 - Systemic lupus erythematosus, unspecified DNA Double Stranded-Crithidia Today M32.9 - Systemic lupus erythematosus, unspecified Protein Creatinine Ratio, Ur Today M32.9 - Systemic lupus erythematosus, unspecified UA w Microscopic Today M32.9 - Systemic lupus erythematosus, unspecified T Spot TB Today Z11.7 - Encounter for testing for latent tuberculosis infection Cyclic Citrullinated Peptide Today M25.50 - Pain in unspecified joint Parathyroid Hormone Intact Today M11.20 - Other chondrocalcinosis, unspecified site Phosphorus Today M11.20 - Other chondrocalcinosis, unspecified site TSH reflex Free T4 Today M11.20 - Other chondrocalcinosis, unspecified site IRON PROFILE Today M11.20 - Other chondrocalcinosis, unspecified site Transferrin Today M11.20 - Other chondrocalcinosis, unspecified site XR lumbar spine 4V min Today M54.30 - Sciatica, unspecified side XR sacroiliac joint min 3V Today M54.30 - Sciatica, unspecified side XR hip LT min 2V Today M54.30 - Sciatica, unspecified side XR hip RT min 2V Today M54.30 - Sciatica, unspecified side Uric Acid Today M13.0 - Polyarthritis, unspecified Referrals Pain Management Referral M54.30 - Sciatica, unspecified side Medications: New methylprednisolone (Medrol (Jaylan)) PO PER PKG DIR for 6 days 21 ea 0RF Coding Level of Care Code New Pt Level 4 (54703) Diagnoses Polyarthralgia M25.50 Sciatica of left side M54.32 Laterality: left
== END 2024-03-07 15:09 | disposition home or self-care (01) ==
PROVIDERS: PCP Internal Medicine; Visit Provider Student in an Organized Health Care Education/Training Program
DX: M25.50 Pain in unspecified joint (principal); M54.32 Sciatica, left side
CPT/HCPCS: 99204

== ENCOUNTER 2024-03-07 14:14 | Outpatient (REF) | payer MEDICARE, SELFPAY ==
--- NOTE | ~2024-03-07 | XR_ITS ---
EXAMINATION: XR LUMBAR SPINE XR SACROILIAC JOINTS XR BILATERAL HIPS CLINICAL INFORMATION: Patient states her pediatric urologist is doing a full workup for arthritis. COMPARISON: Bone survey of 09/19/2022. TECHNIQUE: 3 views of the sacroiliac joints. 5 views of the lumbar spine. 2 views of each hip. FINDINGS: LUMBAR SPINE: Mild leftward curvature of the mid lumbar spine. Diffuse demineralization. Atherosclerotic aortoiliac calcifications. Facet arthritis in the lower spine. Redemonstration of subtle lucent lesion along the posterior L1 vertebral body, similar to bone survey of 09/19/2022. Multilevel lumbar spondylosis with loss of disc space height and degenerative changes most notable at L4-L5 and L5-S1. Grade 1 anterolisthesis of L4 on L5. Minimal grade 1 retrolisthesis of L5 on S1. BILATERAL SACROILIAC JOINTS: Diffuse demineralization. Moderate degenerative changes in the bilateral sacroiliac joints with joint space narrowing and hypertrophic change. RIGHT HIP: Diffuse demineralization. Alignment maintained. Degenerative change in the hip with joint space narrowing predominantly along the medial and axial aspect as well as hypertrophic change. Lucent lesions identified in the proximal right femur on 09/19/2022 bone survey incompletely imaged. Subtle area of mixed lucency and sclerosis along the right inferior pubic ramus. LEFT HIP: Diffuse demineralization. Alignment of the hip joint maintained. Degenerative change in the hip with joint space narrowing predominantly along the medial and axial aspect as well as hypertrophic change. XR/XR hip LT min 2V IMPRESSION: 1. Multilevel lumbar spondylosis with loss of disc space height and degenerative changes most notable at L4-L5 and L5-S1. 2. Moderate degenerative changes in the bilateral sacroiliac joints. 3. Moderate degenerative changes in the bilateral hips. 4. Subtle area of mixed lucency and sclerosis along the right inferior pubic ramus. This study was presented today, March 18, 2024, for interpretation. Stat results provided at this time as requested by referring provider.
--- NOTE | ~2024-03-07 | XR_ITS ---
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 COMPARISON: Bone survey of 09/19/2022. TECHNIQUE: 3 views of the sacroiliac joints. 5 views of the lumbar spine. 2 views of each hip. FINDINGS: LUMBAR SPINE: Mild leftward curvature of the mid lumbar spine. Diffuse demineralization. Atherosclerotic aortoiliac calcifications. Facet arthritis in the lower spine. Redemonstration of subtle lucent lesion along the posterior L1 vertebral body, similar to bone survey of 09/19/2022. Multilevel lumbar spondylosis with loss of disc space height and degenerative changes most notable at L4-L5 and L5-S1. Grade 1 anterolisthesis of L4 on L5. Minimal grade 1 retrolisthesis of L5 on S1. BILATERAL SACROILIAC JOINTS: Diffuse demineralization. Moderate degenerative changes in the bilateral sacroiliac joints with joint space narrowing and hypertrophic change. RIGHT HIP: Diffuse demineralization. Alignment maintained. Degenerative change in the hip with joint space narrowing predominantly along the medial and axial aspect as well as hypertrophic change. Lucent lesions identified in the proximal right femur on 09/19/2022 bone survey incompletely imaged. Subtle area of mixed lucency and sclerosis along the right inferior pubic ramus. LEFT HIP: Diffuse demineralization. Alignment of the hip joint maintained. Degenerative change in the hip with joint space narrowing predominantly along the medial and axial aspect as well as hypertrophic change. XR/XR sacroiliac joint min 3V IMPRESSION: 1. Multilevel lumbar spondylosis with loss of disc space height and degenerative changes most notable at L4-L5 and L5-S1. 2. Moderate degenerative changes in the bilateral sacroiliac joints. 3. Moderate degenerative changes in the bilateral hips. 4. Subtle area of mixed lucency and sclerosis along the right inferior pubic ramus. This study was presented today, March 18, 2024, for interpretation. Stat results provided at this time as requested by referring provider.
--- NOTE | ~2024-03-07 | XR_ITS ---
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 COMPARISON: Bone survey of 09/19/2022. TECHNIQUE: 3 views of the sacroiliac joints. 5 views of the lumbar spine. 2 views of each hip. FINDINGS: LUMBAR SPINE: Mild leftward curvature of the mid lumbar spine. Diffuse demineralization. Atherosclerotic aortoiliac calcifications. Facet arthritis in the lower spine. Redemonstration of subtle lucent lesion along the posterior L1 vertebral body, similar to bone survey of 09/19/2022. Multilevel lumbar spondylosis with loss of disc space height and degenerative changes most notable at L4-L5 and L5-S1. Grade 1 anterolisthesis of L4 on L5. Minimal grade 1 retrolisthesis of L5 on S1. BILATERAL SACROILIAC JOINTS: Diffuse demineralization. Moderate degenerative changes in the bilateral sacroiliac joints with joint space narrowing and hypertrophic change. RIGHT HIP: Diffuse demineralization. Alignment maintained. Degenerative change in the hip with joint space narrowing predominantly along the medial and axial aspect as well as hypertrophic change. Lucent lesions identified in the proximal right femur on 09/19/2022 bone survey incompletely imaged. Subtle area of mixed lucency and sclerosis along the right inferior pubic ramus. LEFT HIP: Diffuse demineralization. Alignment of the hip joint maintained. Degenerative change in the hip with joint space narrowing predominantly along the medial and axial aspect as well as hypertrophic change. XR/XR lumbar spine 4V min IMPRESSION: 1. Multilevel lumbar spondylosis with loss of disc space height and degenerative changes most notable at L4-L5 and L5-S1. 2. Moderate degenerative changes in the bilateral sacroiliac joints. 3. Moderate degenerative changes in the bilateral hips. 4. Subtle area of mixed lucency and sclerosis along the right inferior pubic ramus. This study was presented today, March 18, 2024, for interpretation. Stat results provided at this time as requested by referring provider.
--- NOTE | ~2024-03-07 | XR_ITS ---
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 COMPARISON: Bone survey of 09/19/2022. TECHNIQUE: 3 views of the sacroiliac joints. 5 views of the lumbar spine. 2 views of each hip. FINDINGS: LUMBAR SPINE: Mild leftward curvature of the mid lumbar spine. Diffuse demineralization. Atherosclerotic aortoiliac calcifications. Facet arthritis in the lower spine. Redemonstration of subtle lucent lesion along the posterior L1 vertebral body, similar to bone survey of 09/19/2022. Multilevel lumbar spondylosis with loss of disc space height and degenerative changes most notable at L4-L5 and L5-S1. Grade 1 anterolisthesis of L4 on L5. Minimal grade 1 retrolisthesis of L5 on S1. BILATERAL SACROILIAC JOINTS: Diffuse demineralization. Moderate degenerative changes in the bilateral sacroiliac joints with joint space narrowing and hypertrophic change. RIGHT HIP: Diffuse demineralization. Alignment maintained. Degenerative change in the hip with joint space narrowing predominantly along the medial and axial aspect as well as hypertrophic change. Lucent lesions identified in the proximal right femur on 09/19/2022 bone survey incompletely imaged. Subtle area of mixed lucency and sclerosis along the right inferior pubic ramus. LEFT HIP: Diffuse demineralization. Alignment of the hip joint maintained. Degenerative change in the hip with joint space narrowing predominantly along the medial and axial aspect as well as hypertrophic change. XR/XR hip RT min 2V IMPRESSION: 1. Multilevel lumbar spondylosis with loss of disc space height and degenerative changes most notable at L4-L5 and L5-S1. 2. Moderate degenerative changes in the bilateral sacroiliac joints. 3. Moderate degenerative changes in the bilateral hips. 4. Subtle area of mixed lucency and sclerosis along the right inferior pubic ramus. This study was presented today, March 18, 2024, for interpretation. Stat results provided at this time as requested by referring provider.
[2024-03-07 17:33] LABS: Appearance Urine Clear; Color Urine Yellow; Glucose Urine UA Negative (Negative); Leukocyte Esterase Urine Small (1+) (Negative); Nitrite Urine Negative (Negative); PH 5.5 (5.0-9.0); Specific Gravity - Urine 1.015 (1.005-1.025); UMIC TRIGGER UA YES; Urine Blood Negative (Negative); Urine Ketones Negative (Negative); Urine Protein Negative (Neg-Trace)
[2024-03-07 17:39] LABS: Bacteria Urine None Seen (None Seen); Hyaline Casts Urine 0-2 /LPF (0-2); RBC Urine 0-2 /HPF (0-2); Squamous Epithelial Cell Urine 0-2 /HPF (0-2)
[2024-03-07 18:06] LABS: Rheumatoid Factor < 13.0 IU/mL (<15.0)
[2024-03-07 18:11] LABS: Total Protein Urine Random < 7 mg/dL (<12)
[2024-03-07 18:13] LABS: Alanine Aminotransferase 25 U/L (0-31); Albumin Level 4.4 g/dL (3.5-5.0); Alkaline Phosphatase 70 U/L (39-117); Anion Gap 14 (12-20); Aspartate Amino Transferase 30 U/L (5-31); Bilirubin Total 0.4 mg/dL (0.0-1.0); Blood Urea Nitrogen 17 mg/dL (9-16); Calcium 9.6 mg/dL (8.4-10.2); Carbon Dioxide 24 mmol/L (22-29); Chloride 108 mmol/L (96-108); Estimated Glomerular Filt Rate > 60; Glucose Random 117 mg/dL (60-115); Iron 59 mcg/dL (30-160); Percent Iron Saturation 17 % (15-50); Phosphorus 3.8 mg/dL (2.7-4.5); Potassium 4.4 mmol/L (3.3-5.1); Sodium 142 mmol/L (135-145); Total Iron Binding Capacity 345 mcg/dL (228-428); Total Protein 7.1 g/dL (6.5-8.0); Unsaturated Iron Binding 286 ug/dL
[2024-03-07 18:41] LABS: Ferritin 227 ng/mL (10-250); TSH reflex Free T4 4.05 uIU/mL (0.32-4.0)
[2024-03-07 18:50] LABS: Erythrocyte Sedimentation Rate 17 MM/HR (0-20)
[2024-03-07 19:16] LABS: Uric Acid 4.5 mg/dL (2.4-5.7)
[2024-03-07 19:31] LABS: Free T4 (Free Thyroxine) 0.65 ng/dL (0.71-1.85)
[2024-03-08 03:10] LABS: Parathyroid Hormone Intact 62.1 pg/mL (8.7-77.1)
[2024-03-08 03:51] LABS: HBS Num1 242.22 mIU/mL (0-7.99); HBsAGNum1 0.35 S/CO (0.00-0.99); Hepatitis A Antibody IgM 0.14 Index (0-0.79); Hepatitis B Core Antibody Nonreactive (Nonreactive); Hepatitis B Surface Antigen Negative (Negative); ~HepC Num1 0.05 S/CO (0.00-0.79); ~Hepatitis A Antibody IgM Nonreactive (Nonreactive); ~Hepatitis B Surface Antibody REACTIVE (Nonreactive); ~Hepatitis C Antibody Nonreactive (Nonreactive)
[2024-03-09 20:58] LABS: TS Negative Control Passed; TS Panel A 1; TS Panel B 0; TS Positive Control Passed; TSpotTB Negative (Negative)
[2024-03-10 10:07] LABS: Complement C3 118 mg/dL (83-193)
[2024-03-10 20:23] LABS: Transferrin 314 mg/dL (188-341)
[2024-03-10 21:03] LABS: Anti DNA DS Antibody <1 IU/mL; Antibody to SS-A Antigen <1.0 NEG AI (<1.0 NEG); Antibody to SS-B Antigen <1.0 NEG AI (<1.0 NEG); SM/Ribonucleoprotein Ab <1.0 NEG AI (<1.0 NEG); Smith Protein <1.0 NEG AI (<1.0 NEG)
[2024-03-12 09:34] LABS: Cyclic Citrullinated Peptide <16 UNITS
[2024-03-12 15:33] LABS: Anti Nuclear Antibody Screen NEGATIVE (NEGATIVE)
[2024-03-14 14:52] LABS: DNAds, Crithidia Antibody Negative (Negative)
== END 2024-03-07 14:15 | disposition home or self-care (01) ==
LOC: HO.LAB 14:14
PROVIDERS: PCP Internal Medicine; Visit Provider Student in an Organized Health Care Education/Training Program
DX: Z11.7 Encounter for testing for latent tuberculosis infection (principal); Z11.59 Encounter for screening for other viral diseases; M32.9 Systemic lupus erythematosus, unspecified; M25.50 Pain in unspecified joint; M13.0 Polyarthritis, unspecified; M54.30 Sciatica, unspecified side; M11.20 Other chondrocalcinosis, unspecified site; Z72.89 Other problems related to lifestyle
CPT/HCPCS: 36415; 72110; 72202; 73502; 80053; 81001; 82570; 82728; 83540; 83970; 84100; 84156; 84439; 84443; 84466; 84550; 85652; 86038; 86140; 86160; 86200; 86225; 86235; 86255; 86431; 86481; 86704; 86706; 86709; 86803; 87340; 99202

== ENCOUNTER 2024-03-13 11:02 | Outpatient (AMB) | payer MEDICARE, SELFPAY ==
--- NOTE | 2024-03-13 11:08 | MHC.OFFVIS ---
Vital Signs 03/13/24 11:12 Height 5 ft 3 in Weight 165 lb BMI 29.2 BP 120/58 L Blood Pressure Location Lt brachial Position Sitting Intake Visit Reasons: EGD; Dr. Dotson Intake Note: Patient follow up for cholelithiasis and EGD results Patient cc: upper abdominal discomfort after eating, and diarrhea. Denies any other GI issues Neonatal Pediatric Nurse Required: No Accompanied by: Self / Same As Patient Allergies oxycodone [From OXYCONTIN] Allergy (Mild, Verified 12/15/24 16:55) PRURITUS, severe itching adhesive tape Allergy (Unknown, Verified 12/15/24 16:55) BLISTERS cephalexin [Keflex] Allergy (Unknown, Verified 12/15/24 16:55) hives doxycycline [DOXYCYCLINE] Adverse Reaction (Intermediate, Verified 12/15/24 16:55) STOMACH PAINS HPI HPI EGD; Dr. Dotson: Details: FU GI clinic visit for this 79-year-old female for FU of GERD and IBS. Patient has been followed by Dr. Bojorquez since 2014 for? nausea,? epigastric pain, heartburn, dysphagia and diarrhea She is followed by Dr Muniz in heme-onc for multiple myeloma. LABS IN [facility] :?celiac serologies were negative, stool wbc and culture negative, C Diff was equivocal IMAGING STUDIES:? 05/2023 ABD US SHOWED: 1. There is cholelithiasis. 2. There is generalized increase in hepatic echotexture, consistentwith fatty infiltration or hepatocellular disease. Please correlateclinically. Characteristic pericholecystic sparing favors fatty infiltration. No focal hepatic mass or intrahepatic biliary dilatation is seen. 3. There is hepatomegaly. 11/07/21 BARIUM SWALLOW SHOWED:Esophageal caliber is normal. There is moderate dysmotility. No fixedstricture or extrinsic mass lesion demonstrated. No mucosal abnormality. No hiatal hernia. No gastroesophageal reflux observed. A barium tablet passed through the esophagus into the stomach. ENDOSCOPIC STUDIES:? 02/18/24 EGD SHOWED: ESOPHAGUS: GE junction at 35 cms. Mildly tortuous esophagus with a non-obstructing Schatzki's ring at GE junction. Biopsies were obtained from proximal esophagus to check for EOE. Esophageal balloon dilation was performed STOMACH: A few 3-4 mm benign appearing polyps in the gastric body and fundus - biopsied. Mild diffuse gastric erythema - biopsies were obtained from the body and antrum. DUODENUM: Normal - biopsied to check for celiac sprue Plan: Above findings were reviewed with the patient and relevant handouts were given and the discharge area. BIOPSIES SHOWED: A. Small bowel, biopsy: Superficial fragments of small bowel mucosa within normal limits; preserved villous architecture and no increased intraepithelial lymphocytes seen. B. Stomach, antrum, biopsy: Gastric antral mucosa with mild reactive gastropathy and incomplete intestinal metaplasia; negative for Helicobacter pylori and dysplasia. C. Stomach, body, biopsy: Gastric body mucosa within normal limits; negative for Helicobacter pylori, intestinal metaplasia and dysplasia. D. Stomach, polyp, biopsy: Fundic gland polyp; negative for Helicobacter pylori, intestinal metaplasia and dysplasia. E. Esophagus, proximal, biopsy: Squamous mucosa within normal limits; negative for inflammation (including intraepithelial eosinophils), fungal organisms and intestinal metaplasia 2018? EGD showed a small hiatal hernia. Same day colonoscopy was negative ? Except 1+ internal hemorrhoids.? Duodenal biopsies were normal, gastric biopsies showed mild chronic inactive gastritis and was negative for H pylori.? Random biopsies obtained from right and left colon were normal. Sep 2016? EGD AND COLONOSCOPY SHOWED: Hemorrhagic gastritis, soft changes consistent with possibility of gastroesophageal reflux disorder - GASTRIC BIOPSIES WERE NEGATIVE FOR H PYLORI.? Mild diverticulosis and +1 internal hemorrhoids. PLAN:? Patient will be reseen in my office in 4 weeks.? Repeat colon cancer screening would be recommended for 5-7 years depending on clinical conditions Patient cc: acid reflex, upper center abdominal pain with bloating, also dysphagia on and off with solid and liquid. TODAYS VISIT: Patient cc: upper abdominal discomfort after eating, and diarrhea. Denies any other GI issues Continues to have dysphagia - usually with solid food. Tries to eat more slowly Has cut back on foods due to IBS Has 3 normal BMs a week - has diarrhea rest of the time with 3-4 BMs in a row. Has not had chemo since September. Trying to get rid of sciatica and has to use a walker and doing PT and Laser light PAST VISITS: CC: She is to start CAR T cell therapy on Sunday [place] [facility] [place]. Her T cells will be removed and reinjected after 5 weeks to kill the cancer cells Had to cancel her vacation since she got influenza infection on the day she was to travel Complains of post prandial upper abdominal pain Trying to eat smaller portions more slowly Diarrhea with 3 to 8 BMs per day. Uses imodium, pepto-bismol and Lomotil Trying to drink a lot of liquids and electrolytes Has been having intermittent reddish orange/rust colored stool all week. Denies noticing any blood. Diarrhea has not been too bad this week - had a bout on 05/07/23 Three episodes on 05/10/23. Notes post prandial abdominal pain and bloating intermittently Complains of postprandial abdominal pain/pressure and unsure what to eat. Stomach does not feel good. Continues to have dysphagia and can have regurgitation of food into her throat (new problem) Intermittent heartburn and takes peptobismol or TUMS Continues to have loose stools - not always diarrhea Stopped writing down what she eats since she is unable to find a pattern. Takes 2 tab of immodium when she has increased diarrhea and takes another 2 tablets if she continues to have diarrhea. Takes Tramadol less than a few times a month and not daily. Decreased her treatment Velcade (Sunday treatment was stopped) due to hair loss. Has mets to the back and spine BMs are rarely formed - either mush or liquid, and sometimes orange in color and rarely diarrhea. Wt gain despite eating less - eats until she feels full. Does not eat big portions. Started taking a nutrition shake. Drinks a lot of water. Uses a heat pack on the stomach since it hurts. Notes urgency after she eats. Keeps a journal and is unable to find a pattern Sometimes she notes a little blood on the side of the stools Took some ice cream and had diarrhea after eating it Takes Lactose free milk Rarely has trouble going. PAST VISITS: Hospitalized in 03/2022 with COPD and pneumonia Notes intermittent cough usually in the am. On a steroid taper at present. Continues to have dysphagia with solids and large pills. Diarrhea is not too bad. Had an episode of gelatinous stool on 04/07/22 after she went home from the hospital Has 1 to 5 BMs a day. Takes Colestipol and 1 imodiun when she has diarrhea. Unable to identify precipitating foods. Avoids spicy foods Getting treatment for MM every 2 weeks followed by dexamethasone on Sun and . Seeing her Chiropractor for aches and pains - which is helping Stopped Creon since it was causing abdominal cramps. Notes diarrhea 2 -3 times a week - not related to treatment. Not taking colestipol due to concern for constipation. Intermittent rectal bleeding when she is constipated which she attributes to hemorrhoids. Takes Tramadol for body pains. Keeping a journal of diet and BMs Sometimes certain foods won't bother her and sometimes its a disaster Notes worsening dysphagia to liquids and solids - denies regurgitation with dysphagia episodes. Dysphagia is more often with liquids than solids. Denies coughing spells with dysphagia Broke her tooth and had nausea? due to enamel Starting to have a little problem with constipation (none since 2017) Still has intermittent diarrhea and is more manageable - taking imodium, Tums and colestipol Can have upto 7 BMs a day. Getting sinus DIEGO's. Kept a dairy of her BMs. Continues to have loose and liquid BMs. BMs are broken into lumps and bumps Eating less and gaining wt. Does not know what to eat since a lot of foods bother her Avoids salads and broccoli Stool studies were reviewed. Notes fat in the stool intermittently Continues to have intermittent diarrhea. On Revlimid (Lenalidomide)every 3 weeks - rest x 1 week - unsure if she has incrased diarrhea while on Revlimid. Can have lower abd pain, or pain can move up into the epigastrium. Has been noticing some gas over the past month. Biggest issue is her sleep since she has to get up to urinate. Her bowels do not interrupt her sleep. Can have 1-2 and upto 5 Bms a day - upto 7 times once. Concerned she may be loosing her nutrients. Takes Colestipol, imodium or peptobismol which works and diarrhea can come right back TUMS does not help. Diagnosed with Multiple Myeloma 5 yrs ago when she noted worsening fatigue. Takes Pantoprazole at night - advised by Dr Bojorquez. Takes imodium for the diarrhea. Sometimes takes peptobismol, meenakshi seltzer or TUMS for the diarrhea. She is taking colestipol once daily and takes a 2nd dose if diarrhea is bad [facility] Medical History Osteoarthritis of knees, bilateral Abnormal finding on MRI of brain Long-term current use of intravenous immunoglobulin (IVIG) Tinea pedis Urinary incontinence, urge Urinary frequency Urinary urgency TSH elevation Nasal congestion Hospital discharge follow-up Sepsis Pneumonia Acute exacerbation of chronic obstructive pulmonary disease Chronic cough Generalized anxiety disorder Right low back pain Hand pain Dysphagia, pharyngoesophageal phase Costochondritis Dyspnea on exertion COPD (chronic obstructive pulmonary disease) Chronic diarrhea Anxiety Cataract Bladder cancer GERD (gastroesophageal reflux disease) Asthma IBS (irritable bowel syndrome) Hypertension Multiple myeloma Surgical History History of oral surgery History of esophagogastroduodenoscopy (EGD) H/O colonoscopy History of eyelid surgery History of tonsillectomy H/O wrist surgery H/O eye surgery History of arthroscopy of both knees H/O rotator cuff surgery H/O cardiac catheterization Family History Father Pancreatic cancer Diabetes Stroke Mother No problems noted. Sister Diabetes Son No problems noted. Social History Household Members: Spouse Housing: [facility] Are you a primary director medicare sales to a significant other at home: No Do you presently have visiting nurse or other home services: Yes ([facility]) Alcohol intake: never Patient Tobacco Use Status: Former Tobacco user Tobacco use type: Cigarette e-Cigarette/Vaping Use: Never Used Second Hand Smoke Exposure: No Advance Directives Date on File: 07/20/23 service: No Current occupational status: retired Cognitive needs: No Hearing needs: No Vision needs: Yes (Glasses) Review of Systems Const Denies fever(s), Denies headache(s) and Denies weight loss Eyes Denies eye discharge and Denies irritation ENT Reports Normal hearing present, Reports dysphagia, Denies dizziness and Denies headache(s) Card Denies chest pain, Denies leg edema and Reports dyspnea on exertion Resp Denies cough, Reports dyspnea on exertion and Denies wheezing GI Denies abdominal pain, Denies change in bowel habits, Reports dysphagia and Denies heartburn Denies difficulty voiding and Denies dysuria Musc Denies back pain, Denies arthralgias and Reports other (arthritis) Skin/Breast Denies pruritus, Denies rash and Denies jaundice Neuro Reports Normal hearing present, Denies Abnormal speech present, Denies dizziness, Denies headache(s) and Denies seizure-like activity Psych Reports anxiety, Denies depression and Denies panic attacks Endo Denies cold intolerance, Denies flushing and Denies heat intolerance Jose/Lymph Denies easy bleeding and Denies easy bruising Aller/Immun Denies wheezing Physical Exam Vital Signs: Last Vital Signs BP 120/58 L 03/13/24 11:12 BMI result Body Mass Index 29.2 Const General: no acute distress Nutritional Appearance: overweight Orientation/consciousness: patient oriented x3 Limitations: no limitations HEENT Head: Yes normal to inspection Ears: hearing grossly normal bilaterally Eyes Sclerae: sclerae normal Pupils: Equal, round and reactive pupils present Neck Neck: Yes normal visual inspection Chest Chest palpation & inspection: normal inspection of the chest Resp Effort & Inspection: normal respiratory effort Auscultation: clear to auscultation bilaterally Cardio Palpation: normal PMI Rate: regular rate Rhythm: regular rhythm Heart sounds: S1 normal heart sound present, S2 normal heart sound present and no murmurs GI Palpation (GI): Soft to palpation, nontender and No hepatosplenomegaly present Auscultation: normal bowel sounds Rectal Exam - Female: deferred Skin General skin exam: no rashes or lesions noted Neuro General: patient oriented x3, gait normal and moves all extremities Cranial nerves: Yes Equal, round and reactive pupils present and Yes Normal hearing present Speech: No Abnormal speech present Psych Appearance: grossly normal Mental Status: mental status grossly normal Assessment & Plan Assessment & Plan (1) GERD (gastroesophageal reflux disease): Code(s): K21.9 - Gastro-esophageal reflux disease without esophagitis Category: Medical Qualifiers: Esophagitis presence: without esophagitis Qualified Code(s): K21.9 - Gastro-esophageal reflux disease without esophagitis (2) Cholelithiasis: Code(s): K80.20 - Calculus of gallbladder without cholecystitis without obstruction Category: Medical Plan 79 YF with hypertension, asthma, anxiety disorder and multiple myeloma followed in GI for GERD and chronic diarrhea of unclear etiology. Past evaluation with colonoscopy and random biopsies were normal, celiac serologies were negative, stool wbc and culture negative, C Diff was equivocal Stool fat?and pancreatic elastase was normal. Pt was taking Revlimid (Lenalidomide) every 3 weeks for? multiple myeloma which can be associated with diarrhea and 39-49% of patient, abdominal pain in 10-12%, nausea and 11-30% and decreased appetite in 14% of patients.? ? Patient discontinued Revlimid without change in diarrhea. She was started on daratumumab faspro on 07/05. She has so far been tolerating it very well. She had last couple of treatments while she was vacationing in [place], last year, (she received week 7 on 08/23 and week 8 8 on 08/30 [address] the [address] Schuyler Hicks, at [facility] in [place].) Pamelist was added for MM on 02/14/22 Pt was advised to continue taking imodium or peptobismol prn for diarrhea. She was given a trail of pancreatic enzymes (although stool pancreatic elastase was normal) and stopped taking it since it was associated with abdominal cramps A barium swallow showed?moderate dysmotility without stricture or extrinsic mass lesion. No hiatal hernia or gastroesophageal reflux was noted. 05/09/23 Abd US showed cholelithiasis and fatty liver 05/01/[address] Muniz (Oncology): She has been referred for physical therapy to strengthen her legs. l advised gentle therapy. That is helping a lot. She will continue the Decadron taper. She will go down to 4 mg. I will follow up on the free light chain ratio, monthly to gauge her response. She will continue on the Denosumab, q 6 months. 09/21/23 She is to start BATRES T cell therapy on 09/21/23 at [facility] [place]. Her T cells will be removed and re-injected after 5 weeks to kill the cancer cells Complains of post prandial upper abdominal pain Diarrhea with 3 to 8 BMs per day. Pt advised to increase pantoprazole to twice a day. She will be scheduled for an EGD after BATRES T cell therapy is complete 03/13/24 Continues to have dysphagia - usually with solid food. Tries to eat more slowly Has cut back on foods due to IBS Has 3 normal BMs a week - has diarrhea rest of the time with 3-4 BMs in a row. FU in 6 months Coding Level of Care Code Est Pt Level 4 (47848) Diagnoses Gastroesophageal reflux disease without esophagitis K21.9 Esophagitis presence: without esophagitis Cholelithiasis K80.20 Time Spent (min) 21
[2024-03-13 11:12] VITALS: BP 120/58; BMI 29.2
== END 2024-03-13 12:05 | disposition home or self-care (01) ==
PROVIDERS: PCP Internal Medicine; Visit Provider Internal Medicine Gastroenterology
DX: K21.9 Gastro-esophageal reflux disease without esophagitis (principal); K80.20 Calculus of gallbladder without cholecystitis without obstruction
CPT/HCPCS: 99214

== ENCOUNTER → 2024-03-13 11:02 | Outpatient (BNVA) | payer MEDICARE, SELFPAY | PROVIDERS: PCP Internal Medicine; Visit Provider Internal Medicine Gastroenterology | DX: K58.9 Irritable bowel syndrome, unspecified (principal); K21.9 Gastro-esophageal reflux disease without esophagitis; K80.20 Calculus of gallbladder without cholecystitis without obstruction | CPT/HCPCS: 99212 ==

== ENCOUNTER 2024-04-02 07:54 | Outpatient (AMB) | payer MEDICARE, SELFPAY ==
--- NOTE | 2024-04-02 07:58 | MHC.OFFVIS ---
Vital Signs 04/02/24 08:00 Height 5 ft 3 in Weight 167 lb BMI 29.6 BP 134/61 Blood Pressure Location Lt brachial Position Sitting Respiration 14 Pulse 68 Pulse Source Pulse Oximeter Pulse Oximetry (%) 95 Oxygen Delivery Method Room Air Intake Visit Reasons: Sciatica Unspecified Allergies oxycodone [From OXYCONTIN] Allergy (Mild, Verified 04/02/24 08:01) PRURITUS, severe itching adhesive tape Allergy (Unknown, Verified 04/02/24 08:01) BLISTERS cephalexin [Keflex] Allergy (Unknown, Verified 04/02/24 08:01) hives doxycycline [DOXYCYCLINE] Adverse Reaction (Intermediate, Verified 04/02/24 08:01) STOMACH PAINS Medication List - Last Reconciled 04/02/24 by Yvette Dong LPN acetaminophen (Tylenol Extra Strength) 1,000 mg PO Q6H PRN albuterol sulfate 90 mcg/actuation (Ventolin HFA) 2 puffs inhalation Q4-6H PRN 30 days amlodipine 5 mg PO DAILY ascorbate calcium (vitamin C) 500 mg PO DAILY atorvastatin 20 mg PO DAILY cholecalciferol (vitamin D3) 50 mcg PO DAILY desvenlafaxine succinate ER 25 mg PO DAILY gabapentin 100 mg PO TID 90 days lorazepam 0.5 mg PO BID PRN losartan 100 mg PO DAILY mecobalamin (vitamin B12) (B12 Active) 1,000 mcg PO DAILY meloxicam 15 mg PO DAILY metoprolol succinate ER 50 mg PO DAILY multivitamin 1 tab PO DAILY sulfamethoxazole-trimethoprim 800-160 mg 1 tab PO .M, W, F Symbicort 160-4.5 mcg/actuation (budesonide-formoterol) 2 puffs PO BID NS triamcinolone acetonide (Nasacort Allergy) 1 spray intranasal DAILY valacyclovir 500 mg PO DAILY HPI HPI Sciatica Unspecified: Details: 79-year-old female who presents today for evaluation of sciatica pain. She has been diagnosed with multiple myeloma 8 years ago, and she received chemotherapy for 8 years. She is currently in remission and is doing well. She states she has been on different doses of Decadron for almost 8 years. She has been off the Decadron since she started car T treatment in 09/26. She was previously evaluated by Dr. Horn for multiple joint pain including bilateral knee pain and gel injections were discussed; however, Dr. Horn recommended full rheumatology evaluation prior to any additional injections. She was not able to undergo knee replacement surgery due to her history of myeloma. She is following up with rheumatology for polyarthralgia. She reports she was able to walk with a walker until last week when she started having difficulty walking even with a walker due to hip pain. She states she has excruciating pain in the hip and her knee is still bothersome. She is uncertain if the pain is in the hip area or sciatica. She has been doing physical therapy with improvement in her stiffness but still continues to have severe pain. She has done laser therapy as well. She states she is sensitive to cortisone injections and had sleep disturbances secondary to cortisone injection which she received recently for her knee pain. She was seen by Dr. Oliver in 01/2024 for right hand and wrist pain associated with swelling. She had radiocarpal injection and right thumb CMC joint injection with relief. Apparently, this injection also helped her knee pain. COUNTS INCLUDE 234 BEDS AT THE [facility] Medical History Abnormal finding on MRI of brain Long-term current use of intravenous immunoglobulin (IVIG) Tinea pedis Urinary incontinence, urge Urinary frequency Urinary urgency TSH elevation Nasal congestion Hospital discharge follow-up Sepsis Pneumonia Acute exacerbation of chronic obstructive pulmonary disease Chronic cough Generalized anxiety disorder Right low back pain Hand pain Dysphagia, pharyngoesophageal phase Costochondritis Dyspnea on exertion COPD (chronic obstructive pulmonary disease) Chronic diarrhea Anxiety Cataract Bladder cancer GERD (gastroesophageal reflux disease) Asthma IBS (irritable bowel syndrome) Hypertension Multiple myeloma Surgical History History of esophagogastroduodenoscopy (EGD) H/O colonoscopy History of eyelid surgery History of tonsillectomy H/O wrist surgery H/O eye surgery History of arthroscopy of both knees H/O rotator cuff surgery H/O cardiac catheterization Family History Father Pancreatic cancer Diabetes Stroke Mother No problems noted. Sister Diabetes Son No problems noted. Social History Household Members: Spouse Housing: Condominium Are you a primary direct care counselor to a significant other at home: No Do you presently have visiting nurse or other home services: Yes ([facility]) Alcohol intake: never Patient Tobacco Use Status: Former Tobacco user Tobacco use type: Cigarette e-Cigarette/Vaping Use: Never Used Second Hand Smoke Exposure: No Advance Directives Date on File: 07/20/23 service: No Current occupational status: retired Cognitive needs: No Hearing needs: No Vision needs: Yes Physical Exam Vital Signs: Last Vital Signs Pulse 68 04/02/24 08:00 Resp 14 04/02/24 08:00 BP 134/61 04/02/24 08:00 Pulse Ox 95 04/02/24 08:00 Oxygen Delivery Method Room Air 04/02/24 08:00 BMI result Body Mass Index 29.6 General: Appears afebrile. Alert and oriented. Mood and affect appropriate. Follows and participates in conversation appropriately. Respiratory effort is unlabored. Able to transition from sit to stand unassisted. Ambulates with bilaterally normal heel strike and toe off. Tenderness overlying the left sacroiliac joint. Sacroiliac joint provocation reproduces pain in the left lower back. Lumbar extension reproduces pain in the left lower back area. Results Reviewed Results Reviewed: Date: 03/07/24. EXAMINATION: XR LUMBAR SPINE XR SACROILIAC JOINTS XR BILATERAL HIPS FINDINGS: LUMBAR SPINE: Mild leftward curvature of the mid lumbar spine. Diffuse demineralization. Atherosclerotic aortoiliac calcifications. Facet arthritis in the lower spine. Redemonstration of subtle lucent lesion along the posterior L1 vertebral body, similar to bone survey of 09/19/2022. Multilevel lumbar spondylosis with loss of disc space height and degenerative changes most notable at L4-L5 and L5-S1. Grade 1 anterolisthesis of L4 on L5. Minimal grade 1 retrolisthesis of L5 on S1. BILATERAL SACROILIAC JOINTS: Diffuse demineralization. Moderate degenerative changes in the bilateral sacroiliac joints with joint space narrowing and hypertrophic change. RIGHT HIP: Diffuse demineralization. Alignment maintained. Degenerative change in the hip with joint space narrowing predominantly along the medial and axial aspect as well as hypertrophic change. Lucent lesions identified in the proximal right femur on 09/19/2022 bone survey incompletely imaged. Subtle area of mixed lucency and sclerosis along the right inferior pubic ramus. LEFT HIP: Diffuse demineralization. Alignment of the hip joint maintained. Degenerative change in the hip with joint space narrowing predominantly along the medial and axial aspect as well as hypertrophic change. IMPRESSION: 1. Multilevel lumbar spondylosis with loss of disc space height and degenerative changes most notable at L4-L5 and L5-S1. 2. Moderate degenerative changes in the bilateral sacroiliac joints. 3. Moderate degenerative changes in the bilateral hips. 4. Subtle area of mixed lucency and sclerosis along the right inferior pubic ramus. Assessment & Plan Assessment & Plan (1) Lumbar spondylosis: Code(s): M47.816 - Spondylosis without myelopathy or radiculopathy, lumbar region Category: Medical (2) Sacroiliac joint dysfunction: Code(s): M53.3 - Sacrococcygeal disorders, not elsewhere classified Category: Medical Plan Informed that her pain is most likely in the sacroiliac joint secondary to arthritis in sacroiliac joint. Differential includes lumbar spondylosis with significant degenerative arthritis in the lower lumbar segments as well. Discussed fluoroscopy-guided SI joint diagnostic injection following by therapeutic cortisone injection 1 week apart. Patient may continue to do physical therapy stretches at home. Discussed the risks and benefits of the procedure with the patient in detail. All questions were answered. The patient is on board with the plan. Justification for interventional therapy: ? Patient with average pain > 6/10 ? Patient has exhausted conservative therapy ? Patient unable to tolerate physical therapy due to pain / Actively performing physical therapy / Patient continuing home exercise program . Patient has a good understanding of their pain condition and has appropriate mental and social support Scribed for Dr. Robertson by Taylor medical physiologist, on 04/02/2024. I, Dr. Robertson, have personally reviewed and agree with the information entered by the scribe. Coding Level of Care Code Est Pt Level 4 (21308) Diagnoses Lumbar spondylosis M47.816 Sacroiliac joint dysfunction M53.3
[2024-04-02 08:00] VITALS: BP 134/61; PULSE 68; RESP 14; O2SAT 95; BMI 29.6
== END 2024-04-02 08:43 | disposition home or self-care (01) ==
PROVIDERS: PCP Internal Medicine; Visit Provider Internal Medicine
DX: M47.816 Spondylosis without myelopathy or radiculopathy, lumbar region (principal); M53.3 Sacrococcygeal disorders, not elsewhere classified
CPT/HCPCS: 99214

== ENCOUNTER → 2024-04-02 07:55 | Outpatient (BNVA) | payer MEDICARE, SELFPAY | PROVIDERS: PCP Internal Medicine; Visit Provider Internal Medicine | DX: M53.3 Sacrococcygeal disorders, not elsewhere classified (principal); M47.816 Spondylosis without myelopathy or radiculopathy, lumbar region; C90.01 Multiple myeloma in remission; Z92.21 Personal history of antineoplastic chemotherapy | CPT/HCPCS: 99212 ==

== ENCOUNTER 2024-04-10 06:15 | Outpatient (REF) | payer MEDICARE, SELFPAY ==
--- NOTE | ~2024-04-10 | FL_ITS ---
EXAMINATION: XR FLUOROSCOPY WITH IMAGES CLINICAL INFORMATION: Sacrococcygeal disorders, not elsewhere classified. COMPARISON: Sacroiliac joint x-rays 03/07/2024. TECHNIQUE: Fluoroscopy provided to: Dr. Robertson Fluoroscopy time: 0.1 minutes DAP: 0.0459 mGycm2 Images: 2 FINDINGS: Coned-down PA and lateral views of the left SI joint show a needle in place within the synovial aspect of the mid joint. FL/FL guidance in treatment room IMPRESSION: Fluoroscopic guidance. Please refer to the full operative report for details. Electronically signed by: Fadi Schmitz MD 06/06/2024 03:50 PM EDT
== END 2024-04-10 06:16 | disposition home or self-care (01) ==
LOC: CF 06:15
PROVIDERS: Visit Provider Internal Medicine
DX: M53.3 Sacrococcygeal disorders, not elsewhere classified (principal)
CPT/HCPCS: 27096; J2795

== ENCOUNTER 2024-04-10 11:02 | Outpatient (AMB) | payer MEDICARE, SELFPAY ==
[2024-04-10 11:10] VITALS: BP 135/60; PULSE 65; RESP 18; O2SAT 98
--- NOTE | 2024-04-10 11:54 | MHC.OFFVIS ---
Vital Signs 04/10/24 11:10 04/10/24 11:55 BP 135/60 134/67 Blood Pressure Location Lt brachial Lt brachial Position Sitting Sitting Respiration 18 17 Pulse 65 66 Pulse Source Pulse Oximeter Pulse Oximeter Pulse Oximetry (%) 98 96 Oxygen Delivery Method Room Air Room Air Comment Pre-op Post-op Intake Visit Reasons: Left Dx SIJ inj Allergies oxycodone [From OXYCONTIN] Allergy (Mild, Verified 04/10/24 10:22) PRURITUS, severe itching adhesive tape Allergy (Unknown, Verified 04/10/24 10:22) BLISTERS cephalexin [Keflex] Allergy (Unknown, Verified 04/10/24 10:22) hives doxycycline [DOXYCYCLINE] Adverse Reaction (Intermediate, Verified 04/10/24 10:22) STOMACH PAINS HPI HPI Left Dx SIJ inj: Details: Patient presents for scheduled procedure. Denies any recent cough, cold, infection, fever or other significant changes in medical history since last office visit. [facility] Medical History Abnormal finding on MRI of brain Long-term current use of intravenous immunoglobulin (IVIG) Tinea pedis Urinary incontinence, urge Urinary frequency Urinary urgency TSH elevation Nasal congestion Hospital discharge follow-up Sepsis Pneumonia Acute exacerbation of chronic obstructive pulmonary disease Chronic cough Generalized anxiety disorder Right low back pain Hand pain Dysphagia, pharyngoesophageal phase Costochondritis Dyspnea on exertion COPD (chronic obstructive pulmonary disease) Chronic diarrhea Anxiety Cataract Bladder cancer GERD (gastroesophageal reflux disease) Asthma IBS (irritable bowel syndrome) Hypertension Multiple myeloma Surgical History History of esophagogastroduodenoscopy (EGD) H/O colonoscopy History of eyelid surgery History of tonsillectomy H/O wrist surgery H/O eye surgery History of arthroscopy of both knees H/O rotator cuff surgery H/O cardiac catheterization Family History Father Pancreatic cancer Diabetes Stroke Mother No problems noted. Sister Diabetes Son No problems noted. Social History Household Members: Spouse Housing: Condominium Are you a primary home care rn to a significant other at home: No Do you presently have visiting nurse or other home services: Yes ([facility]) Alcohol intake: never Patient Tobacco Use Status: Former Tobacco user Tobacco use type: Cigarette e-Cigarette/Vaping Use: Never Used Second Hand Smoke Exposure: No Advance Directives Date on File: 07/20/23 service: No Current occupational status: retired Cognitive needs: No Hearing needs: No Vision needs: Yes Physical Exam Vital Signs: Last Vital Signs Pulse 66 04/10/24 11:55 Resp 17 04/10/24 11:55 BP 134/67 04/10/24 11:55 Pulse Ox 96 04/10/24 11:55 Oxygen Delivery Method Room Air 04/10/24 11:55 Office Procedures Joint Injection/Aspiration Joint Injection/Aspiration Details: Sacroiliac Joint Injection, LEFT The procedure, its benefits, and its risks were explained and written informed consent was obtained from the patient. Immediately prior to starting the procedure, a time-out safety check was conducted. The patient's identification, procedure name, procedure site, and procedure laterality were confirmed with the patient. ? Patient was placed prone on the fluoroscopy table and the lumbosacral area was prepped using ChloraPrep and draped with sterile drapein standard fashion. The C-arm was rotated in a contralateral oblique fashion until the medial border of the iliac crest no longer foreshadowed the posterior sacroiliac joint line. The skin and subcutaneous tissue was anesthetized using 1 mL of 0.75% plain lidocaine with 1.5-inch 25-gauge needle in the middle region of the joint line.? A 3.5-inch 22-gauge spinal needle with small bend on the tip was slowly advanced towards the joint line, coaxial to the x-ray beam. Once bony content was obtained, the needle was easily slid into the intra-articular space.? Intra-articular needle position was confirmed using lateral fluoroscopy.? A total volume of 2.5mL of solution containing 40 mg0.5% of ROpivacaine was injected intra-articularly. The stylet was reinserted and needle was removed. The patient tolerated the procedure well. Patient denied any lower extremity weakness or numbness. Patient was observed for 30 min and was discharged after fulfilling the standard discharge criteria. Coding 61654 - Sacroiliac Procedure code (CPT) selection complete Assessment & Plan Assessment & Plan (1) Sacroiliac joint dysfunction: Code(s): M53.3 - Sacrococcygeal disorders, not elsewhere classified Category: Medical Plan Patient is status post left diagnostic sacroiliac joint injection. Patient tolerated procedure well and was discharged home in stable condition with discharge instructions. All questions were answered. We will follow-up via telephone or in clinic to assess response to therapy. A follow-up appointment was made during today's visit. Orders: Orders FL guidance in treatment room Today M53.3 - Sacrococcygeal disorders, not elsewhere classified Coding Level of Care Code Procedure Only Diagnoses Sacroiliac joint dysfunction M53.3 CPT Codes Coding - Joint 9: 36560 - Sacroiliac ([id number])
[2024-04-10 11:55] VITALS: BP 134/67; PULSE 66; RESP 17; O2SAT 96
== END 2024-04-10 11:51 | disposition home or self-care (01) ==
LOC: HO.PMCPRC 11:02
PROVIDERS: PCP Internal Medicine; Visit Provider Internal Medicine
DX: M53.3 Sacrococcygeal disorders, not elsewhere classified (principal)
CPT/HCPCS: 27096

== ENCOUNTER 2024-04-21 10:25 | Outpatient (AMB) | payer MEDICARE, SELFPAY ==
--- NOTE | 2024-04-21 10:28 | MHC.OFFVIS ---
Vital Signs 04/21/24 10:30 Height 5 ft 3 in Weight 167 lb BMI 29.6 BP 130/66 Blood Pressure Location Lt brachial Position Sitting Respiration 14 Pulse 61 Pulse Source Pulse Oximeter Pulse Oximetry (%) 97 Oxygen Delivery Method Room Air Intake Visit Reasons: s/p Left Dx SIJ inj Allergies oxycodone [From OXYCONTIN] Allergy (Mild, Verified 04/29/24 09:47) PRURITUS, severe itching adhesive tape Allergy (Unknown, Verified 04/29/24 09:47) BLISTERS cephalexin [Keflex] Allergy (Unknown, Verified 04/29/24 09:47) hives doxycycline [DOXYCYCLINE] Adverse Reaction (Intermediate, Verified 04/29/24 09:47) STOMACH PAINS Medication List - Last Reconciled 04/21/24 by Yvette Dong LPN acetaminophen (Tylenol Extra Strength) 1,000 mg PO Q6H PRN albuterol sulfate 90 mcg/actuation (Ventolin HFA) 2 puffs inhalation Q4-6H PRN 30 days amlodipine 5 mg PO DAILY ascorbate calcium (vitamin C) 500 mg PO DAILY atorvastatin 20 mg PO DAILY cholecalciferol (vitamin D3) 50 mcg PO DAILY desvenlafaxine succinate ER 25 mg PO DAILY gabapentin 100 mg PO TID 90 days lorazepam 0.5 mg PO BID PRN losartan 100 mg PO DAILY mecobalamin (vitamin B12) (B12 Active) 1,000 mcg PO DAILY meloxicam 15 mg PO DAILY metoprolol succinate ER 50 mg PO DAILY multivitamin 1 tab PO DAILY sulfamethoxazole-trimethoprim 800-160 mg 1 tab PO .M, W, F Symbicort 160-4.5 mcg/actuation (budesonide-formoterol) 2 puffs PO BID NS triamcinolone acetonide (Nasacort Allergy) 1 spray intranasal DAILY valacyclovir 500 mg PO DAILY HPI HPI s/p Left Dx SIJ inj: Details: 79-year-old female who presents today to the office for a status post left diagnostic sacroiliac joint injection. The patient reports no relief following the procedure. She continues to have significant pain in her left buttock region. Her pain is still bothersome. She has difficulty walking. She has pain in her knee. She is still working with her physical therapist and doing piriformis exercises for past two months. She had a pressure pain at the injection site. She had CAR-T cell therapy. The pain is affecting her daily activities. Past procedures 04/10/24: Sacroiliac Joint Injection, LEFT: no relief. [facility] Medical History Abnormal finding on MRI of brain Long-term current use of intravenous immunoglobulin (IVIG) Tinea pedis Urinary incontinence, urge Urinary frequency Urinary urgency TSH elevation Nasal congestion Hospital discharge follow-up Sepsis Pneumonia Acute exacerbation of chronic obstructive pulmonary disease Chronic cough Generalized anxiety disorder Right low back pain Hand pain Dysphagia, pharyngoesophageal phase Costochondritis Dyspnea on exertion COPD (chronic obstructive pulmonary disease) Chronic diarrhea Anxiety Cataract Bladder cancer GERD (gastroesophageal reflux disease) Asthma IBS (irritable bowel syndrome) Hypertension Multiple myeloma Surgical History History of esophagogastroduodenoscopy (EGD) H/O colonoscopy History of eyelid surgery History of tonsillectomy H/O wrist surgery H/O eye surgery History of arthroscopy of both knees H/O rotator cuff surgery H/O cardiac catheterization Family History Father Pancreatic cancer Diabetes Stroke Mother No problems noted. Sister Diabetes Son No problems noted. Social History Household Members: Spouse Housing: [facility] Are you a primary patient centered care specialist to a significant other at home: No Do you presently have visiting nurse or other home services: Yes ([facility]) Alcohol intake: never Patient Tobacco Use Status: Former Tobacco user Tobacco use type: Cigarette e-Cigarette/Vaping Use: Never Used Second Hand Smoke Exposure: No Advance Directives Date on File: 07/20/23 service: No Current occupational status: retired Cognitive needs: No Hearing needs: No Vision needs: Yes Review of Systems Const All systems reviewed & are unremarkable except as noted in HPI and below Physical Exam Vital Signs: Last Vital Signs Pulse 61 04/21/24 10:30 Resp 14 04/21/24 10:30 BP 130/66 04/21/24 10:30 Pulse Ox 97 04/21/24 10:30 Oxygen Delivery Method Room Air 04/21/24 10:30 BMI result Body Mass Index 29.6 General: Appears afebrile. Alert and oriented. Mood and affect appropriate. Follows and participates in conversation appropriately. Respiratory effort is unlabored. Able to transition from sit to stand unassisted. Ambulates with bilaterally normal heel strike and toe off. Results Reviewed Results Reviewed: No imaging is available for review. Assessment & Plan Assessment & Plan (1) Piriformis syndrome of left side: Code(s): G57.02 - Lesion of sciatic nerve, left lower limb Category: Medical (2) Sacroiliac joint dysfunction: Code(s): M53.3 - Sacrococcygeal disorders, not elsewhere classified Category: Medical Plan She had no significant pain relief from the last sacroiliac joint injection. She continues to have significant pain in her left buttock region related to the diagnosis including lumbar radiculopathy and piriformis syndrome. We will schedule her for a left diagnostic piriformis injections US vs. fluoroscopy guided to see if that is helpful in relieving her symptoms. Discussed the risks and benefits of the procedure with the patient in detail. All questions were answered. The patient is on board with the plan. Justification for interventional therapy: ? Patient with average pain > 6/10 ? Patient has exhausted conservative therapy ? Patient unable to tolerate physical therapy due to pain. Patient has a good understanding of their pain condition and has appropriate mental and social support Scribed for Dr. Robertson by Keyon Arreguin, medical technical writer, on 04/21/2024. I, Dr. Robertson, have personally reviewed and agree with the information entered by the scribe. Coding Level of Care Code Est Pt Level 4 (90453) Diagnoses Piriformis syndrome of left side G57.02 Sacroiliac joint dysfunction M53.3
[2024-04-21 10:30] VITALS: BP 130/66; PULSE 61; RESP 14; O2SAT 97; BMI 29.6
== END 2024-04-21 11:19 | disposition home or self-care (01) ==
LOC: HO.PMC 10:26
PROVIDERS: PCP Internal Medicine; Visit Provider Internal Medicine
DX: G57.02 Lesion of sciatic nerve, left lower limb (principal); M53.3 Sacrococcygeal disorders, not elsewhere classified
CPT/HCPCS: 99214

== ENCOUNTER → 2024-04-21 10:25 | Outpatient (BNVA) | payer MEDICARE, SELFPAY | PROVIDERS: PCP Internal Medicine; Visit Provider Internal Medicine | DX: M53.3 Sacrococcygeal disorders, not elsewhere classified (principal); G57.02 Lesion of sciatic nerve, left lower limb | CPT/HCPCS: 99212 ==

== ENCOUNTER 2024-04-24 07:36 | Outpatient (REF) | payer MEDICARE, SELFPAY | END 2024-04-24 07:37 | disposition home or self-care (01) | LOC: CF 07:36 | PROVIDERS: Visit Provider Internal Medicine | DX: G57.02 Lesion of sciatic nerve, left lower limb (principal); M79.18 Myalgia, other site; M54.32 Sciatica, left side; M47.816 Spondylosis without myelopathy or radiculopathy, lumbar region | CPT/HCPCS: 20552; J2795 ==

== ENCOUNTER 2024-04-24 08:45 | Outpatient (AMB) | payer MEDICARE, SELFPAY ==
[2024-04-24 09:05] VITALS: BP 135/55; PULSE 62; RESP 14; O2SAT 97; BMI 29.6
--- NOTE | 2024-04-24 09:05 | A.OFFVIS_ITS ---
Vital Signs 04/24/24 09:05 04/24/24 09:40 Height 5 ft 3 in 5 ft 3 in Weight 167 lb 167 lb BMI 29.6 29.6 BP 135/55 L 142/59 H Blood Pressure Location Lt brachial Lt brachial Position Sitting Sitting Respiration 14 14 Pulse 62 62 Pulse Source Pulse Oximeter Pulse Oximeter Pulse Oximetry (%) 97 97 Oxygen Delivery Method Room Air Room Air Comment pre-op post-op Intake Visit Reasons: Left Dx pirformis inj Allergies oxycodone [From OXYCONTIN] Allergy (Mild, Verified 04/24/24 09:06) PRURITUS, severe itching adhesive tape Allergy (Unknown, Verified 04/24/24 09:06) BLISTERS cephalexin [Keflex] Allergy (Unknown, Verified 04/24/24 09:06) hives doxycycline [DOXYCYCLINE] Adverse Reaction (Intermediate, Verified 04/24/24 09:06) STOMACH PAINS HPI HPI Left Dx pirformis inj: Details: Patient presents for scheduled procedure. Denies any recent cough, cold, infection, fever or other significant changes in medical history since last office visit. [facility] Medical History Abnormal finding on MRI of brain Long-term current use of intravenous immunoglobulin (IVIG) Tinea pedis Urinary incontinence, urge Urinary frequency Urinary urgency TSH elevation Nasal congestion Hospital discharge follow-up Sepsis Pneumonia Acute exacerbation of chronic obstructive pulmonary disease Chronic cough Generalized anxiety disorder Right low back pain Hand pain Dysphagia, pharyngoesophageal phase Costochondritis Dyspnea on exertion COPD (chronic obstructive pulmonary disease) Chronic diarrhea Anxiety Cataract Bladder cancer GERD (gastroesophageal reflux disease) Asthma IBS (irritable bowel syndrome) Hypertension Multiple myeloma Surgical History History of esophagogastroduodenoscopy (EGD) H/O colonoscopy History of eyelid surgery History of tonsillectomy H/O wrist surgery H/O eye surgery History of arthroscopy of both knees H/O rotator cuff surgery H/O cardiac catheterization Family History Father Pancreatic cancer Diabetes Stroke Mother No problems noted. Sister Diabetes Son No problems noted. Social History Household Members: Spouse Housing: Condominium Are you a primary ocular care technician to a significant other at home: No Do you presently have visiting nurse or other home services: Yes ([facility]NA) Alcohol intake: never Patient Tobacco Use Status: Former Tobacco user Tobacco use type: Cigarette e-Cigarette/Vaping Use: Never Used Second Hand Smoke Exposure: No Advance Directives Date on File: 07/20/23 service: No Current occupational status: retired Cognitive needs: No Hearing needs: No Vision needs: Yes Physical Exam Vital Signs: Last Vital Signs Pulse 62 04/24/24 09:40 Resp 14 04/24/24 09:40 BP 142/59 H 04/24/24 09:40 Pulse Ox 97 04/24/24 09:40 Oxygen Delivery Method Room Air 04/24/24 09:40 BMI result Body Mass Index 29.6 Office Procedures Injection-Therapetic Trigger Single Point: 12473-Mtcennt point injection, 1 or 2 Piriformis Muscle Injection, Left The procedure, its benefits, and its risks were explained and written informed consent was obtained from the patient. Immediately prior to starting the procedure, a time-out safety check was conducted. The patient's identification, procedure name, procedure site, and procedure laterality were confirmed with the patient. ? Patient was placed lateral on the fluoroscopy table and the lumbosacral area was prepped using ChloraPrep and draped with sterile drape in standard fashion. The C-arm was placed in an AP orientation and was used to identify the landmarks for the piriformis muscle insertion sites. The skin and subcutaneous tissue was anesthetized using 1 mL of 0.75% plain lidocaine .? A 21 gauge 80 mm needle was slowly advanced towards the muscle under ultrasound guidance. Intra-muscular position was confirmed with live injection into the the piriformis muscle.? A total volume of 3 mL of solution containing 0.25% ropivacaine was injected intra-muscularly. The patient tolerated the procedure well. Patient denied any lower extremity weakness or numbness. Patient was observed for 30 min and was discharged after fulfilling the standard discharge criteria. Assessment & Plan Assessment & Plan (1) Piriformis syndrome of left side: Code(s): G57.02 - Lesion of sciatic nerve, left lower limb Category: Medical Plan Patient is status post left piriformis diagnostic muscle injection. Patient tolerated procedure well and was discharged home in stable condition with discharge instructions. All questions were answered. We will follow-up via telephone or in clinic to assess response to therapy. A follow-up appointment was made during today's visit. Orders: Orders FL guidance in treatment room Today M47.816 - Spondylosis without myelopathy or radiculopathy, lumbar region, M54.32 - Sciatica, left side Coding Level of Care Code Procedure Only Diagnoses Piriformis syndrome of left side G57.02 CPT Codes Details - Trigger Single Point: 72641-Ghlohnt point injection, 1 or 2 ([id number])
[2024-04-24 09:40] VITALS: BP 142/59; PULSE 62; RESP 14; O2SAT 97; BMI 29.6
== END 2024-04-24 09:37 | disposition home or self-care (01) ==
LOC: HO.PMCPRC 08:45
PROVIDERS: PCP Internal Medicine; Visit Provider Internal Medicine
DX: M79.18 Myalgia, other site (principal); G57.02 Lesion of sciatic nerve, left lower limb
CPT/HCPCS: 20552

== ENCOUNTER 2024-04-29 09:43 | Outpatient (AMB) | payer MEDICARE, SELFPAY ==
[2024-04-29 09:46] VITALS: BP 134/68; PULSE 75; O2SAT 97; BMI 29.2
--- NOTE | 2024-04-29 09:46 | MHC.PC.OV ---
Vital Signs 04/29/24 09:46 Height 5 ft 3 in Weight 165 lb BMI 29.2 BP 134/68 Blood Pressure Location Lt brachial Position Sitting Pulse 75 Pulse Source Pulse Oximeter Pulse Oximetry (%) 97 Oxygen Delivery Method Room Air Intake Visit Reasons: MM, chronic diarrhea Allergies oxycodone [From OXYCONTIN] Allergy (Mild, Verified 04/29/24 09:47) PRURITUS, severe itching adhesive tape Allergy (Unknown, Verified 04/29/24 09:47) BLISTERS cephalexin [Keflex] Allergy (Unknown, Verified 04/29/24 09:47) hives doxycycline [DOXYCYCLINE] Adverse Reaction (Intermediate, Verified 04/29/24 09:47) STOMACH PAINS Tobacco use date assessed: 12/17/23 Fall risk assessment: No Falls in past year Last assessed Fall Risk: 04/29/24 Dental Screening Dental Screen Date: 12/17/23 HPI MM, chronic diarrhea HPI Details 79-year-old overweight female with multiple myeloma hypertension GERD COPD generalized anxiety disorder hypercholesterolemia last seen in December 2023. Patient's mammogram is up-to-date january 2024. Review of the notes has been with the pain management for left piriformis syndrome problem and has had trigger point injection and left sciatic nerve problem. Patient also follows up with Hematology-Oncology had MRI of the brain in January moderate number of T2 hyperintense white matter signal abnormalities small vessel ischemic disease no evidence of infarct extracranial structures left parietal bone 2 cm enhancing lesion consistent with metastasis right mastoid effusion patient receiving IVIG monthly. Patient has also seen the chair finisher in March 2024. So also the garment parts cutter machine in March diagnosis of polyarthralgia Ca RT treatment workup advised. Patient had an EGD done in 03/22/2024 showing tortuous esophagus when on nonobstructing Schatzki's ring at GE junction balloon dilatation was done stomach polyps noted mild reactive gastropathy negative for inflammation. January [facility] [place] notes treatment of a back my Ca RT, XGEVA, Bactrim, acyclovir brain MRI IVIG. Cardiology 01/21/2024 cardiac catheterization negative.. complains of a sweet smell in the urine [facility] Medical History Abnormal finding on MRI of brain Long-term current use of intravenous immunoglobulin (IVIG) Tinea pedis Urinary incontinence, urge Urinary frequency Urinary urgency TSH elevation Nasal congestion Hospital discharge follow-up Sepsis Pneumonia Acute exacerbation of chronic obstructive pulmonary disease Chronic cough Generalized anxiety disorder Right low back pain Hand pain Dysphagia, pharyngoesophageal phase Costochondritis Dyspnea on exertion COPD (chronic obstructive pulmonary disease) Chronic diarrhea Anxiety Cataract Bladder cancer GERD (gastroesophageal reflux disease) Asthma IBS (irritable bowel syndrome) Hypertension Multiple myeloma Surgical History History of esophagogastroduodenoscopy (EGD) H/O colonoscopy History of eyelid surgery History of tonsillectomy H/O wrist surgery H/O eye surgery History of arthroscopy of both knees H/O rotator cuff surgery H/O cardiac catheterization Family History Father Pancreatic cancer Diabetes Stroke Mother No problems noted. Sister Diabetes Son No problems noted. Social History Household Members: Spouse [facility] Are you a primary rn care transition to a significant other at home: No Do you presently have visiting nurse or other home services: Yes ([facility]NA) Alcohol intake: never Patient Tobacco Use Status: Former Tobacco user Tobacco use type: Cigarette e-Cigarette/Vaping Use: Never Used Second Hand Smoke Exposure: No Advance Directives Date on File: 07/20/23 service: No Current occupational status: retired Cognitive needs: No Hearing needs: No Vision needs: Yes Questionnaire PHQ-9 Over the last 2 weeks, how often have you been bothered by any of the following problems? 1. Little interest or pleasure in doing things: not at all 2. Feeling down, depressed, or hopeless: not at all 3. Trouble falling or staying asleep, or sleeping too much: not at all 4. Feeling tired or having little energy: not at all 5. Poor appetite or overeating: not at all 6. Feeling bad about yourself - or that you are a failure or have let yourself or your family down: not at all 7. Trouble concentrating on things, such as reading the newspaper or watching television: not at all 8. Moving or speaking so slowly that other people could have noticed. Or the opposite - being so fidgety or restless that you have been moving around a lot more than usual: not at all 9. Thoughts that you would be better off or of hurting yourself in some way: not at all Total score: 0 Depression Screening Interpretation: Negative Depression Screening Done: Yes Source: Developed by Drs. Ian Moss, Moni Maharaj, Usama Garces and colleagues, with an educational jaylon from [employer]. Thrive Questionnaire Date Thrive assessed: 12/17/23 AUDIT C Alcohol Use Questionnaire (AUDIT-C) 1. How often do you have a drink containing alcohol?: Never 2. How many drinks containing alcohol do you have on a typical day when you are drinking?: 1 or 2 3. How often do you have six or more drinks on one occasion?: Never Total Score: 0 Score Reviewed/Action Taken: No [place]-7 AMB Questionnaire [place]-7 Date [place] - 7 assessed: 12/17/23 Source: Developed by Drs. Ian Moss, Moni Maharaj, Usama Garces and colleagues, with an educational jaylon from [employer]. Physical exam (Primary Care) Vital Signs: Last Vital Signs Pulse 75 04/29/24 09:46 BP 134/68 04/29/24 09:46 Pulse Ox 97 04/29/24 09:46 Oxygen Delivery Method Room Air 04/29/24 09:46 BMI result Body Mass Index 29.2 Tobacco/Smoking Status: Tobacco use Status Tobacco use date assessed 12/17/23 04/29/24 09:54 Patient Tobacco Use Status Former Tobacco user 04/29/24 09:54 Tobacco use type Cigarette 04/29/24 09:54 e-Cigarette/Vaping Use Never Used 04/29/24 09:54 PHQ-9: PHQ-9 Score PHQ-9: Total score 0 04/29/24 09:54 Depression Screening Interpretation: Negative Thrive Assessment: Date of Thrive Assessment Date Thrive assessed 12/17/23 04/29/24 09:54 Const General: alert; No acute distress Eyes Conjunctivae: conjunctivae normal Resp Auscultation: clear to auscultation bilaterally Cardio Rate: regular rate Rhythm: regular rhythm GI Inspection: Yes normal to inspection Extrem General: Yes normal to inspection and No edema Assessment and Plan Assessment & Plan (1) Multiple myeloma: Comment: Most of her complaints, her pertaining to her multiple myeloma. She is relatively happy that the current med ( Velcade ) is working better . Code(s): C90.00 - Multiple myeloma not having achieved remission Qualifiers: Multiple myeloma remission status: unspecified Qualified Code(s): C90.00 - Multiple myeloma not having achieved remission Plan: Continue to follow-up with Hematology-Oncology on treatment as well as in [place]. (2) Hypertension: Code(s): I10 - Essential (primary) hypertension Qualifiers: Hypertension type: essential hypertension Qualified Code(s): I10 - Essential (primary) hypertension Plan: Continue with blood pressure medication. Decrease salt intake and exercise amlodipine 5 mg once a day losartan 100 mg once a day metoprolol 50 mg once a day (3) GERD (gastroesophageal reflux disease): Code(s): K21.9 - Gastro-esophageal reflux disease without esophagitis Qualifiers: Esophagitis presence: without esophagitis Qualified Code(s): K21.9 - Gastro-esophageal reflux disease without esophagitis Plan: Avoid the foods that causes that usually spicy foods, tomato products, juices, coffee, soda and foods that your sensitive to. After eating do not lie down, allow 3-4 hours before in lie down. And keep the head of bed above 30 degrees to avoid the acid from going up. (4) COPD (chronic obstructive pulmonary disease): Comment: She does have evidence of mild to moderate degree of CHRONIC OBSTRUCTIVE PULMONARY DISEASE, in addition to symptoms of mild bronchial asthma. At present well controlled even without using Symbicort. Code(s): J44.9 - Chronic obstructive pulmonary disease, unspecified Plan: Continue with Symbicort and albuterol as needed but has not been using inhaler (5) Dyspnea on exertion: Comment: Mild to moderate, multifactorial, currently stable . Code(s): R06.00 - Dyspnea, unspecified Plan: Patient is being followed up by Cardiology multifactorial. (6) Chronic diarrhea: Code(s): K52.9 - Noninfective gastroenteritis and colitis, unspecified Plan: Patient has been followed up by Gastroenterology. (7) Hypercholesterolemia: Code(s): E78.00 - Pure hypercholesterolemia, unspecified Plan: Avoid fried foods, chicken skin, eggs, butter margarine, pastries and meat. Be it pork or beef they have a lot of cholesterol on atorvastatin 20 mg once a day (8) Generalized anxiety disorder: Code(s): F41.1 - Generalized anxiety disorder Plan: Continue with counseling and therapy (9) Piriformis syndrome of left side: Code(s): G57.02 - Lesion of sciatic nerve, left lower limb Plan: Patient is being followed up by pain management and has had recent injection (10) Polyarthralgia: Code(s): M25.50 - Pain in unspecified joint Plan: Continue to follow-up with dermatology (11) Sacroiliac joint dysfunction: Code(s): M53.3 - Sacrococcygeal disorders, not elsewhere classified Plan: discussed about pain management (12) Lumbar spondylosis: Code(s): M47.816 - Spondylosis without myelopathy or radiculopathy, lumbar region Plan: dsicussed about pain management Coding Level of Care Code Est Pt Level 4 (42621) Complex EM visit Add On G2211 Diagnoses Multiple myeloma, remission status unspecified C90.00 Multiple myeloma remission status: unspecified Essential hypertension I10 Hypertension type: essential hypertension Gastroesophageal reflux disease without esophagitis K21.9 Esophagitis presence: without esophagitis COPD (chronic obstructive pulmonary disease) J44.9 Dyspnea on exertion R06.00 Chronic diarrhea K52.9 Hypercholesterolemia E78.00 Generalized anxiety disorder F41.1 Piriformis syndrome of left side G57.02 Polyarthralgia M25.50 Sacroiliac joint dysfunction M53.3 Lumbar spondylosis M47.816 Additional Codes PHQ-9 - 85106 - PHQ-9 Billing: ([id number])
== END 2024-04-29 11:11 | disposition home or self-care (01) ==
PROVIDERS: PCP Internal Medicine; Visit Provider Internal Medicine
DX: J44.9 Chronic obstructive pulmonary disease, unspecified (principal); C90.00 Multiple myeloma not having achieved remission; I10 Essential (primary) hypertension; K21.9 Gastro-esophageal reflux disease without esophagitis; R06.00 Dyspnea, unspecified; K52.9 Noninfective gastroenteritis and colitis, unspecified; E78.00 Pure hypercholesterolemia, unspecified; F41.1 Generalized anxiety disorder; G57.02 Lesion of sciatic nerve, left lower limb; M25.50 Pain in unspecified joint; M53.3 Sacrococcygeal disorders, not elsewhere classified; M47.816 Spondylosis without myelopathy or radiculopathy, lumbar region
CPT/HCPCS: 99214; G2211

== ENCOUNTER 2024-06-11 14:50 | Outpatient (AMB) | payer MEDICARE, SELFPAY ==
--- NOTE | 2024-06-11 15:07 | A.OFFVIS_ITS ---
Vital Signs 06/11/24 15:08 Height 5 ft 3 in Weight 168 lb 10.458 oz BMI 29.9 BP 130/70 Blood Pressure Location Lt brachial Position Sitting Pulse 65 Pulse Source Pulse Oximeter Pulse Oximetry (%) 97 Oxygen Delivery Method Room Air Intake Visit Reasons: SOB,chest tightness Intake Note: pt is here for follow up and states she is having some short of breath, and chest tightness, can happen at different times. Direct Sales Consultant Required: No Allergies oxycodone [From OXYCONTIN] Allergy (Mild, Verified 06/11/24 16:38) PRURITUS, severe itching adhesive tape Allergy (Unknown, Verified 06/11/24 16:38) BLISTERS cephalexin [Keflex] Allergy (Unknown, Verified 06/11/24 16:38) hives doxycycline [DOXYCYCLINE] Adverse Reaction (Intermediate, Verified 06/11/24 16:38) STOMACH PAINS Medication List - Last Reconciled 06/11/24 by Cyndy Flores MD acetaminophen (Tylenol Extra Strength) 1,000 mg PO Q6H PRN albuterol sulfate 90 mcg/actuation (Ventolin HFA) 2 puffs inhalation Q4-6H PRN 30 days amlodipine 5 mg PO DAILY ascorbate calcium (vitamin C) 500 mg PO DAILY atorvastatin 20 mg PO DAILY cexjnfouey-rjqchjeceapuo-oqen 50-325-40 mg 1 tab PO Q6H PRN cholecalciferol (vitamin D3) 50 mcg PO DAILY desvenlafaxine succinate ER 25 mg PO DAILY diphenoxylate-atropine 2.5-0.025 mg (Lomotil) 1 tab PO BEDTIME PRN gabapentin 100 mg PO TID 90 days lorazepam 0.5 mg PO BID PRN losartan 100 mg PO DAILY 90 days mecobalamin (vitamin B12) (B12 Active) 1,000 mcg PO DAILY meloxicam 15 mg PO DAILY metoprolol succinate ER 50 mg PO DAILY 90 days multivitamin 1 tab PO DAILY triamcinolone acetonide (Nasacort Allergy) 1 spray intranasal DAILY valacyclovir 500 mg PO DAILY Do you need a note to return to daycare/school/sports/work: No HPI HPI SOB,chest tightness: Details: KRISTI COMES AFTER 6 MONTHS FOR FOLLOW-UP. SHE HAS INCREASED EPISODES OF CHEST TIGHTNESS WITH SOME DISCOMFORT. ALSO COMPLAINS OF GETTING SHORT OF BREATH ON WALKING OR DOING ANY PHYSICAL WORK, BUT NO COUGH OR WHEEZING. SHE DOES NOT USE SYMBICORT IT WAS DENIED BY THE INSURANCE. SHE USES ALBUTEROL ONLY P.R.N. BUT DOES NOT MAKE A BIG DIFFERENCE. SHE HAS HAD O2 AT HOME WITH STATIONARY CONCENTRATOR AND THE CYLINDERS FOR A WHILE WHICH SHE WAS USING ONLY ONCE IN A WHILE P.R.N.. RECENTLY SHE HAS OBTAINED INOGEN UNIT , ( A NEIGHBOR AND WHO USED TO USE T HIS UNIT, AND THE UNIT WAS GIVEN TO KRISTI) SHE WANTS TO RETURN HER STATIONARY CONCENTRATOR. [facility] Medical History Abnormal finding on MRI of brain Long-term current use of intravenous immunoglobulin (IVIG) Tinea pedis Urinary incontinence, urge Urinary frequency Urinary urgency TSH elevation Nasal congestion Hospital discharge follow-up Sepsis Pneumonia Acute exacerbation of chronic obstructive pulmonary disease Chronic cough Generalized anxiety disorder Right low back pain Hand pain Dysphagia, pharyngoesophageal phase Costochondritis Dyspnea on exertion COPD (chronic obstructive pulmonary disease) Chronic diarrhea Anxiety Cataract Bladder cancer GERD (gastroesophageal reflux disease) Asthma IBS (irritable bowel syndrome) Hypertension Multiple myeloma Surgical History History of esophagogastroduodenoscopy (EGD) H/O colonoscopy History of eyelid surgery History of tonsillectomy H/O wrist surgery H/O eye surgery History of arthroscopy of both knees H/O rotator cuff surgery H/O cardiac catheterization Family History Father Pancreatic cancer Diabetes Stroke Mother No problems noted. Sister Diabetes Son No problems noted. Social History Household Members: Spouse Housing: Condominium Are you a primary care professionals to a significant other at home: No Do you presently have visiting nurse or other home services: Yes (VNA) Alcohol intake: never Patient Tobacco Use Status: Former Tobacco user Tobacco use type: Cigarette e-Cigarette/Vaping Use: Never Used Second Hand Smoke Exposure: No Advance Directives Date on File: 07/20/23 service: No Current occupational status: retired Cognitive needs: No Hearing needs: No Vision needs: Yes Review of Systems Const All systems reviewed & are unremarkable except as noted in HPI and below Eyes Reports no additional complaints ENT Reports no additional complaints, Denies nasal congestion and Denies nasal discharge Card Reports chest pain (Intermittent nonspecific), Denies irregular heart rhythm and Denies leg edema Resp Reports as per HPI and Reports cough GI Reports heartburn (Controlled with Protonix) Reports no additional complaints Musc Reports no additional complaints Skin/Breast Reports system reviewed and no additional complaints, except as documented Neuro Reports no additional complaints Psych Reports anxiety Physical Exam Vital Signs: Last Vital Signs Pulse 65 06/11/24 15:08 BP 130/70 06/11/24 15:08 Pulse Ox 97 06/11/24 15:08 Oxygen Delivery Method Room Air 06/11/24 15:08 BMI result Body Mass Index 29.9 Const General: no acute distress, alert and awake Orientation/consciousness: patient oriented x3 HEENT Head: Yes normal to inspection General nose exam: No nasal polyps present and No nasal discharge present Face and sinus: Yes sinuses nontender Mouth: oropharynx normal Throat: Yes posterior oropharynx normal Eyes General: appearance normal, both eyes and all related structures Neck Neck: Yes normal visual inspection, Yes no lymphadenopathy, Yes trachea midline and Yes no JVD Thyroid: Thyroid normal Chest Chest palpation & inspection: normal inspection of the chest, normal palpation of entire chest wall and no tenderness Resp Other: Percussion note resonant, breath sounds are distant, but no wheezes rhonchi or crepitations are heard Cardio Palpation: normal PMI Rate: regular rate Rhythm: regular rhythm Heart sounds: no gallops and no murmurs GI Palpation (GI): Soft to palpation, nontender, No hepatosplenomegaly present and no masses Auscultation: normal bowel sounds Back/Spine/Pelvis Thoracic/Lumbar Spine: thoracic and lumbar spine normal to inspection Skin General skin exam: no rashes or lesions noted Neuro General: patient oriented x3 and no focal motor deficits Cranial nerves: Yes CN's II-XII intact bilaterally Extrem General: Yes normal to inspection, Yes no clubbing, cyanosis or edema and Yes no calf tenderness Psych Appearance: grossly normal and well kempt Speech and movement: Normal speech and movement present Assessment & Plan Assessment & Plan (1) COPD (chronic obstructive pulmonary disease): Comment: She does have evidence of mild to moderate degree of CHRONIC OBSTRUCTIVE PULMONARY DISEASE, in addition to symptoms of mild bronchial asthma. It is relatively stable and at present she is not using Symbicort, she has not noticed any difference from before. She does have albuterol HFA on hand. Code(s): J44.9 - Chronic obstructive pulmonary disease, unspecified Category: Medical Plan: No need to use long-acting bronchodilator or inhaled steroids. OK to use albuterol HFA 2 puffs Q 6 hours p.r.n.. (2) Dyspnea on exertion: Comment: Mild to moderate, multifactorial, currently she has somewhat increased episodes of shortness of breath. She uses O2 for short periods p.r.n., and sometimes uses albuterol if there is some tightness. In the chest Code(s): R06.00 - Dyspnea, unspecified Category: Medical Plan: I TOLD HER THAT IT IS OKAY TO USE OXYGEN FOR SHORT INTERVALS LIKE 15-20 MINUTES AT A TIME P.R.N.. SHE HAS A POC , AND THIS SHE CAN USE FOR OXYGEN NEEDED. SHE DOES NOT NEED TO KEEP THE STATIONARY CONCENTRATOR AT HOME , IT CAN BE RETURNED TO THE [employer]. (3) Anxiety: Comment: She has multifactorial anxiety, and mild depression but is able to cope with that . She uses Lorazepam 0.5 mg PRN . She needs lot of psychological support And also she feels better after venting out, most of her complaints. Code(s): F41.9 - Anxiety disorder, unspecified Category: Medical Plan: Had a good conversation with her as she needs lot of support. OK to use lorazepam 0.5 mg Q 6 hours p.r.n. Coding Level of Care Code Est Pt Level 3 (06771) Diagnoses COPD (chronic obstructive pulmonary disease) J44.9 Dyspnea on exertion R06.00 Anxiety F41.9
[2024-06-11 15:08] VITALS: BP 130/70; PULSE 65; O2SAT 97; BMI 29.9
== END 2024-06-11 16:04 | disposition home or self-care (01) ==
PROVIDERS: PCP Internal Medicine; Visit Provider Internal Medicine
DX: J44.9 Chronic obstructive pulmonary disease, unspecified (principal); R06.00 Dyspnea, unspecified; F41.9 Anxiety disorder, unspecified
CPT/HCPCS: 99213

== ENCOUNTER → 2024-06-11 14:50 | Outpatient (BNVA) | payer MEDICARE, SELFPAY | PROVIDERS: PCP Internal Medicine; Visit Provider Internal Medicine | DX: J44.9 Chronic obstructive pulmonary disease, unspecified (principal); R07.9 Chest pain, unspecified; R06.00 Dyspnea, unspecified; F41.9 Anxiety disorder, unspecified | CPT/HCPCS: 99212 ==

== ENCOUNTER 2024-06-30 11:31 | Outpatient (REF) | payer MEDICARE, SELFPAY ==
[2024-06-30 11:57] LABS: MANUAL DIFF FLAG NO
[2024-06-30 11:59] LABS: Basophils Percent Auto 0.1 % (0-2); Eosinophils Percent Auto 0.3 % (0-4); Hematocrit 36.2 % (37.0-47.0); Hemoglobin 12.3 g/dl (12.0-16.0); Imm Gran Abs Auto 0.05 X10*3/uL (0.00-0.03); Imm Gran Pct Auto 0.7 % (0.0-0.4); Lymphocytes Absolute Auto 0.4 X10*3/uL (1.2-4.9); Lymphocytes Percent Auto 5.9 % (20-40); Mean Corpuscular Volume 91.2 fL (80.0-98.0); Mean Platelet Volume 8.5 fL (9.4-12.3); Monocytes Absolute Auto 0.6 X10*3/uL (0.1-1.2); Monocytes Percent Auto 8.4 % (2-11); Neutrophils Absolute Auto 5.7 x10*3/uL (2.0-8.3); Neutrophils Percent Auto 84.6 % (45-73); Red Blood Count 3.97 X10*6/uL (4.20-5.50); Red Cell Distribution Width 13.2 % (11.0-16.0); White Blood Count 6.8 X10*3/uL (4.8-10.8)
[2024-06-30 12:00] LABS: Platelet Count 99 X10*3/uL (160-400)
[2024-06-30 12:27] LABS: Alanine Aminotransferase 27 U/L (0-31); Albumin Level 4.3 g/dL (3.5-5.0); Alkaline Phosphatase 68 U/L (39-117); Anion Gap 11 (12-20); Aspartate Amino Transferase 37 U/L (5-31); Bilirubin Total 0.4 mg/dL (0.0-1.0); Blood Urea Nitrogen 18 mg/dL (9-16); Calcium 10.3 mg/dL (8.4-10.2); Carbon Dioxide 29 mmol/L (22-29); Chloride 105 mmol/L (96-108); Estimated Glomerular Filt Rate 59; Glucose Random 109 mg/dL (60-115); Sodium 140 mmol/L (135-145); Total Protein 7.3 g/dL (6.5-8.0)
[2024-07-02 09:09] LABS: Kappa Light Chain, Free Serum 1.1 mg/L (3.3-19.4); Kappa/Lambda Lt Ch Free Ratio 0.73 (0.26-1.65); Lambda Light Chain, Free Serum 1.5 mg/L (5.7-26.3)
[2024-07-08 23:27] LABS: IgA <5 mg/dL (70-320); IgG 1278 mg/dL (600-1540); IgM <5 mg/dL (50-300)
== END 2024-06-30 11:32 | disposition home or self-care (01) ==
LOC: HO.LAB 11:31
PROVIDERS: PCP Internal Medicine; Visit Provider Internal Medicine Medical Oncology
DX: C90.00 Multiple myeloma not having achieved remission (principal)
CPT/HCPCS: 36415; 80053; 82784; 83521; 85025; 86334

== ENCOUNTER 2024-07-30 10:11 | Outpatient (AMB) | payer MEDICARE, SELFPAY ==
[2024-07-30 10:13] VITALS: BP 140/72; PULSE 64; O2SAT 95; BMI 29.9
--- NOTE | 2024-07-30 10:13 | MHC.PC.OV ---
Vital Signs 07/30/24 10:13 07/30/24 10:47 Height 5 ft 3 in Weight 169 lb 0.2 oz BMI 29.9 BP 140/72 H 112/56 L Blood Pressure Location Lt brachial Lt brachial Position Sitting Sitting Pulse 64 Pulse Source Pulse Oximeter Pulse Oximetry (%) 95 Oxygen Delivery Method Room Air Intake Visit Reasons: 3 Month F/U Allergies oxycodone [From OXYCONTIN] Allergy (Mild, Verified 07/30/24 10:13) PRURITUS, severe itching adhesive tape Allergy (Unknown, Verified 07/30/24 10:13) BLISTERS cephalexin [Keflex] Allergy (Unknown, Verified 07/30/24 10:13) hives doxycycline [DOXYCYCLINE] Adverse Reaction (Intermediate, Verified 07/30/24 10:13) STOMACH PAINS Medication List - Last Reconciled 07/30/24 by Lorna Hou PA-C acetaminophen (Tylenol Extra Strength) 1,000 mg PO Q6H PRN albuterol sulfate 90 mcg/actuation (Ventolin HFA) 2 puffs inhalation Q4-6H PRN 30 days amlodipine 5 mg PO DAILY ascorbate calcium (vitamin C) 500 mg PO DAILY atorvastatin 20 mg PO DAILY mfraktswvc-vhqouhirghobb-xnwu 50-325-40 mg 1 tab PO Q6H PRN cholecalciferol (vitamin D3) 50 mcg PO DAILY desvenlafaxine succinate ER 25 mg PO DAILY diphenoxylate-atropine 2.5-0.025 mg (Lomotil) 1 tab PO BEDTIME PRN gabapentin 100 mg PO TID 90 days lorazepam 0.5 mg PO BID PRN losartan 100 mg PO DAILY 90 days mecobalamin (vitamin B12) (B12 Active) 1,000 mcg PO DAILY meloxicam 15 mg PO DAILY metoprolol succinate ER 50 mg PO DAILY 90 days multivitamin 1 tab PO DAILY triamcinolone acetonide (Nasacort Allergy) 1 spray intranasal DAILY valacyclovir 500 mg PO DAILY Tobacco use date assessed: 12/17/23 Fall risk assessment: No Falls in past year Last assessed Fall Risk: 07/30/24 Dental Screening Dental Screen Date: 12/17/23 HPI 3 Month F/U HPI Details 79-year-old overweight female with multiple myeloma, hypertension, GERD, COPD, generalized anxiety disorder, hypercholesterolemia, last seen in April 2024 coming in for follow up.?Patient follows with Hematology/Oncology for multiple myeloma last seen 07/13/2024 advised to continue on denosumab every 3 months and receiving IVIG monthly and follow up in 1 month.?Seen by pulmonology 06/11/2024 on albuterol as needed and oxygen for short intervals. Patient has an appointment in [place] for Oncology and has continued to work with Hematology/Oncology through [employer]. She complains of continued right knee pain and has seen Rheumatology, Orthopedics, endocrinology and has also trialed acupuncture and continues to have right knee pain. She has no other concerns today. [facility] Medical History Abnormal finding on MRI of brain Long-term current use of intravenous immunoglobulin (IVIG) Tinea pedis Urinary incontinence, urge Urinary frequency Urinary urgency TSH elevation Nasal congestion Hospital discharge follow-up Sepsis Pneumonia Acute exacerbation of chronic obstructive pulmonary disease Chronic cough Generalized anxiety disorder Right low back pain Hand pain Dysphagia, pharyngoesophageal phase Costochondritis Dyspnea on exertion COPD (chronic obstructive pulmonary disease) Chronic diarrhea Anxiety Cataract Bladder cancer GERD (gastroesophageal reflux disease) Asthma IBS (irritable bowel syndrome) Hypertension Multiple myeloma Surgical History History of esophagogastroduodenoscopy (EGD) H/O colonoscopy History of eyelid surgery History of tonsillectomy H/O wrist surgery H/O eye surgery History of arthroscopy of both knees H/O rotator cuff surgery H/O cardiac catheterization Family History Father Pancreatic cancer Diabetes Stroke Mother No problems noted. Sister Diabetes Son No problems noted. Social History Household Members: Spouse Housing: Condominium Are you a primary senior caregiver to a significant other at home: No Do you presently have visiting nurse or other home services: Yes ([facility]NA) Alcohol intake: never Patient Tobacco Use Status: Former Tobacco user Tobacco use type: Cigarette e-Cigarette/Vaping Use: Never Used Second Hand Smoke Exposure: No Advance Directives Date on File: 07/20/23 service: No Current occupational status: retired Cognitive needs: No Hearing needs: No Vision needs: Yes Questionnaire Thrive Questionnaire Date Thrive assessed: 12/17/23 AUDIT C Alcohol Use Questionnaire (AUDIT-C) 1. How often do you have a drink containing alcohol?: Never 2. How many drinks containing alcohol do you have on a typical day when you are drinking?: 1 or 2 3. How often do you have six or more drinks on one occasion?: Never Total Score: 0 Score Reviewed/Action Taken: No J[place]-7 AMB Questionnaire J[place]-7 Date JAMAICA - 7 assessed: 12/17/23 Source: Developed by Drs. Ian Moss, Moni Maharaj, Usama Garces and colleagues, with an educational jaylon from [employer]. Review of Systems Const Denies body aches, Denies chills, Denies fever(s), Denies headache(s) and Denies poor appetite Eyes Reports no additional complaints ENT Denies dysphagia, Denies dizziness, Denies headache(s) and Denies odynophagia Card Denies chest pain, Denies syncope, Denies edema, Denies irregular heart rhythm, Denies lightheadedness and Denies dyspnea Resp Denies cough and Denies dyspnea GI Denies abdominal pain, Denies constipation, Denies dysphagia, Denies diarrhea, Denies nausea, Denies odynophagia and Denies vomiting Reports no additional complaints Musc Reports no additional complaints and Denies abnormal gait Skin/Breast Reports system reviewed and no additional complaints, except as documented Neuro Denies abnormal gait, Denies dizziness, Denies syncope and Denies headache(s) Psych Reports no additional complaints Physical exam (Primary Care) Vital Signs: Last Vital Signs Pulse 64 07/30/24 10:13 BP 112/56 L 07/30/24 10:47 Pulse Ox 95 07/30/24 10:13 Oxygen Delivery Method Room Air 07/30/24 10:13 BMI result Body Mass Index 29.9 Tobacco/Smoking Status: Tobacco use Status Tobacco use date assessed 12/17/23 07/30/24 10:20 Patient Tobacco Use Status Former Tobacco user 07/30/24 10:20 Tobacco use type Cigarette 07/30/24 10:20 e-Cigarette/Vaping Use Never Used 07/30/24 10:20 Thrive Assessment: Date of Thrive Assessment Date Thrive assessed 12/17/23 07/30/24 10:20 Const General: cooperative, healthy appearing, comfortable and no acute distress Orientation/consciousness: patient oriented x3 HENMT Head: Yes normocephalic Ears: hearing grossly normal bilaterally General nose exam: Normal external nose present Eyes General: appearance normal, both eyes and all related structures Conjunctivae: conjunctivae normal Neck Neck: Yes full ROM and Yes no lymphadenopathy Resp Effort & Inspection: normal respiratory effort Auscultation: clear to auscultation bilaterally, no crackles, no rales, no rhonchi and no wheezes Cardio Rate: regular rate Rhythm: regular rhythm Skin General skin exam: no rashes or lesions noted Neuro General: patient oriented x3 Gait exam (Neuro): Normal gait present Extrem General: Yes normal to inspection, Yes full ROM and No edema Psych Affect: normal affect Attitude: cooperative Insight: Good insight present (Psych) Judgement: Good judgement present (Psych) Coding Level of Care Code Est Pt Level 3 (49430) Diagnoses Hypercholesterolemia E78.00 Multiple myeloma, remission status unspecified C90.00 Multiple myeloma remission status: unspecified Anxiety F41.9 COPD (chronic obstructive pulmonary disease) J44.9 Gastroesophageal reflux disease without esophagitis K21.9 Esophagitis presence: without esophagitis Essential hypertension I10 Hypertension type: essential hypertension Osteoarthritis of knees, bilateral M17.0 Lumbar spondylosis M47.816 Assessment & Plan Assessment & Plan (1) Hypercholesterolemia: Code(s): E78.00 - Pure hypercholesterolemia, unspecified Category: Medical Plan: Avoid foods that are high in cholesterol such as red meat, fried foods, eggs and baked goods. Triglyceride goal of less than 150 and LDL goal of less than 100. Continue on atorvastatin 20 (2) Multiple myeloma: Comment: Most of her complaints, her pertaining to her multiple myeloma. She is relatively happy that the current med ( Velcade ) is working better. Code(s): C90.00 - Multiple myeloma not having achieved remission Category: Medical Qualifiers: Multiple myeloma remission status: unspecified Qualified Code(s): C90.00 - Multiple myeloma not having achieved remission Plan: Continue to follow with heamtology/oncology. Currently undergoing denosumab every 3 months and IVIG infusions monthly. (3) Anxiety: Comment: She has multifactorial anxiety, and mild depression but is able to cope with that . She uses Lorazepam 0.5 mg PRN . She needs lot of psychological support And also she feels better after venting out, most of her complaints. Code(s): F41.9 - Anxiety disorder, unspecified Category: Medical Plan: Feels anxiety is well managed at this time and has good support system (4) COPD (chronic obstructive pulmonary disease): Comment: She does have evidence of mild to moderate degree of CHRONIC OBSTRUCTIVE PULMONARY DISEASE, in addition to symptoms of mild bronchial asthma. It is relatively stable and at present she is not using Symbicort, she has not noticed any difference from before. She does have albuterol HFA on hand. Code(s): J44.9 - Chronic obstructive pulmonary disease, unspecified Category: Medical Plan: Recently seen by pulmonology not currently on any inhalers except for albuterol as needed. Feels her breathing is well managed at this time (5) GERD (gastroesophageal reflux disease): Code(s): K21.9 - Gastro-esophageal reflux disease without esophagitis Category: Medical Qualifiers: Esophagitis presence: without esophagitis Qualified Code(s): K21.9 - Gastro-esophageal reflux disease without esophagitis Plan: Avoid trigger foods such as citrus, tomato products, soda, caffeine, spicy foods and other foods that may be irritating to your stomach. Avoid laying flat 3-4 hours after eating and elevate the head of the bed 30 degrees to prevent acid from moving into the esophagus. (6) Hypertension: Code(s): I10 - Essential (primary) hypertension Category: Medical Qualifiers: Hypertension type: essential hypertension Qualified Code(s): I10 - Essential (primary) hypertension Plan: Continue on current blood pressure medication. Avoid salt intake and encourage healthy diet and regular exercise. (7) Osteoarthritis of knees, bilateral: Code(s): M17.0 - Bilateral primary osteoarthritis of knee Category: Medical Plan: Patient has continued bilateral knee pain worse on the right side. Referral placed to [facility]. (8) Lumbar spondylosis: Code(s): M47.816 - Spondylosis without myelopathy or radiculopathy, lumbar region Category: Medical Plan: Patient wanting to see additional back specialist for low back pain referral placed to [facility]. Plan This note was constructed using voice recognition software. While every effort has been made to ensure accuracy and gypsum calciner, still areas may have been included sometimes these areas may affect the content or meeting of the given symptoms. Total time spent caring for the patient today was 20 minutes. This includes time spent before the visit reviewing the chart, time spent during the visit, and time spent after the visit and documentation. Orders: Orders Lipid Panel Today E78.00 - Pure hypercholesterolemia, unspecified Referrals Orthopedics Referral M17.0 - Bilateral primary osteoarthritis of knee, M47.816 - Spondylosis without myelopathy or radiculopathy, lumbar region
[2024-07-30 10:47] VITALS: BP 112/56
== END 2024-07-30 11:00 | disposition home or self-care (01) ==
PROVIDERS: PCP Internal Medicine
DX: E78.00 Pure hypercholesterolemia, unspecified (principal); C90.00 Multiple myeloma not having achieved remission; F41.9 Anxiety disorder, unspecified; J44.9 Chronic obstructive pulmonary disease, unspecified; K21.9 Gastro-esophageal reflux disease without esophagitis; I10 Essential (primary) hypertension; M17.0 Bilateral primary osteoarthritis of knee; M47.816 Spondylosis without myelopathy or radiculopathy, lumbar region

== ENCOUNTER → 2024-07-30 10:11 | Outpatient (BNVA) | payer MEDICARE, SELFPAY | PROVIDERS: PCP Internal Medicine | DX: E78.00 Pure hypercholesterolemia, unspecified (principal); C90.00 Multiple myeloma not having achieved remission; F41.9 Anxiety disorder, unspecified; J44.9 Chronic obstructive pulmonary disease, unspecified; K21.9 Gastro-esophageal reflux disease without esophagitis; I10 Essential (primary) hypertension; M17.0 Bilateral primary osteoarthritis of knee; M47.816 Spondylosis without myelopathy or radiculopathy, lumbar region | CPT/HCPCS: 99212 ==

== ENCOUNTER 2024-08-08 09:16 | Outpatient (AMB) | payer MEDICARE, SELFPAY ==
--- NOTE | 2024-08-08 09:17 | A.OFFPC_ITS ---
Intake Visit Reasons: Cold Symptoms Allergies oxycodone [From OXYCONTIN] Allergy (Mild, Verified 08/08/24 09:18) PRURITUS, severe itching adhesive tape Allergy (Unknown, Verified 08/08/24 09:18) BLISTERS cephalexin [Keflex] Allergy (Unknown, Verified 08/08/24 09:18) hives doxycycline [DOXYCYCLINE] Adverse Reaction (Intermediate, Verified 08/08/24 09:18) STOMACH PAINS Tobacco use date assessed: 12/17/23 Fall risk assessment: No Falls in past year Last assessed Fall Risk: 08/08/24 Dental Screening Dental Screen Date: 12/17/23 HPI Cold Symptoms HPI Details left message on phone. 9:30 amsore throat 1 week, 2 days increase and sinus congestionThe patient is an 79-year-old female presenting with acute upper respiratory symptoms and chronic knee pain. She reports experiencing a sore throat for the past week, which has been intermittent, with significant worse khadra evident two days prior to the visit. This was followed by sinus congestion and symptoms that typically escalate into the chest, leading to frequent coughing that has disrupted her sleep for two consecutive nights. The patient has been self-managing her symptoms with codeine cough syrup, nico-yce-jakfewb medications, and lozenges with prior episode treatment with antibiotics, although it is unclear if they were prescribed for this episode. The patient's medical history is notable for a severe right knee osteoarthritis and bilateral knee issues diagnosed with radiographic confirmation from August 2023, reflecting advanced disease with comprehensive loss of joint space. Past interventions include multiple laser treatments without relief, and no surgical management has been undertaken due to concurrent treatment for multiple myeloma. The patient reported past hives in response to Keflex administration 40 years ago but tolerates penicillin-class antibiotics. She continues under the care of Dr. Muniz for multiple myeloma, with chemotherapy affecting decision-making for knee surgery. - Respiratory: Reports persistent coughi ng. - Musculoskeletal: Reports significant b ilateral knee pain, impacting activities. - Neurological: Denies sleep disturbance s outside of issues caused by coughing. [facility] Medical History Abnormal finding on MRI of brain Long-term current use of intravenous immunoglobulin (IVIG) Tinea pedis Urinary incontinence, urge Urinary frequency Urinary urgency TSH elevation Nasal congestion Hospital discharge follow-up Sepsis Pneumonia Acute exacerbation of chronic obstructive pulmonary disease Chronic cough Generalized anxiety disorder Right low back pain Hand pain Dysphagia, pharyngoesophageal phase Costochondritis Dyspnea on exertion COPD (chronic obstructive pulmonary disease) Chronic diarrhea Anxiety Cataract Bladder cancer GERD (gastroesophageal reflux disease) Asthma IBS (irritable bowel syndrome) Hypertension Multiple myeloma Surgical History History of esophagogastroduodenoscopy (EGD) H/O colonoscopy History of eyelid surgery History of tonsillectomy H/O wrist surgery H/O eye surgery History of arthroscopy of both knees H/O rotator cuff surgery H/O cardiac catheterization Family History Father Pancreatic cancer Diabetes Stroke Mother No problems noted. Sister Diabetes Son No problems noted. Social History Household Members: Spouse Housing: [facility] Are you a primary patient centered care specialist to a significant other at home: No Do you presently have visiting nurse or other home services: Yes ([facility]NA) Alcohol intake: never Patient Tobacco Use Status: Former Tobacco user Tobacco use type: Cigarette e-Cigarette/Vaping Use: Never Used Second Hand Smoke Exposure: No Advance Directives Date on File: 07/20/23 service: No Current occupational status: retired Cognitive needs: No Hearing needs: No Vision needs: Yes Questionnaire PHQ-9 Over the last 2 weeks, how often have you been bothered by any of the following problems? 1. Little interest or pleasure in doing things: not at all 2. Feeling down, depressed, or hopeless: not at all 3. Trouble falling or staying asleep, or sleeping too much: not at all 4. Feeling tired or having little energy: not at all 5. Poor appetite or overeating: not at all 6. Feeling bad about yourself - or that you are a failure or have let yourself or your family down: not at all 7. Trouble concentrating on things, such as reading the newspaper or watching television: not at all 8. Moving or speaking so slowly that other people could have noticed. Or the opposite - being so fidgety or restless that you have been moving around a lot more than usual: not at all 9. Thoughts that you would be better off or of hurting yourself in some way: not at all Total score: 0 Depression Screening Interpretation: Negative Depression Screening Done: Yes Source: Developed by Drs. Ian Moss, Usama Lo and colleagues, with an educational jaylon from [employer]. Thrive Questionnaire Date Thrive assessed: 12/17/23 AUDIT C Alcohol Use Questionnaire (AUDIT-C) 1. How often do you have a drink containing alcohol?: Never 2. How many drinks containing alcohol do you have on a typical day when you are drinking?: 1 or 2 3. How often do you have six or more drinks on one occasion?: Never Total Score: 0 Score Reviewed/Action Taken: No JAMAICA-7 AMB Questionnaire JAMAICA-7 Date JAMAICA - 7 assessed: 12/17/23 Source: Developed by Drs. Ian Moss, Moni Maharaj, Usama Garces and colleagues, with an educational jaylon from [employer]. Physical exam (Primary Care) Tobacco/Smoking Status: Tobacco use Status Tobacco use date assessed 12/17/23 08/08/24 09:18 Patient Tobacco Use Status Former Tobacco user 08/08/24 09:18 Tobacco use type Cigarette 08/08/24 09:18 e-Cigarette/Vaping Use Never Used 08/08/24 09:18 PHQ-9: PHQ-9 Score PHQ-9: Total score 0 08/08/24 09:30 Depression Screening Interpretation: Negative Thrive Assessment: Date of Thrive Assessment Date Thrive assessed 12/17/23 08/08/24 09:18 Telehealth Telehealth Telehealth Platform: Telephone Location of provider rendering services: practice address Location of patient: other Patient Identification confirmed using: Name, : Yes Telehealth method: voice only Patient verbally consented to treatment: Yes Patient verbally consented to billing insurance company: Yes Patient informed of any privacy concerns related to visit: Yes Minutes spent on Phone/Video with Pt.: 25 Coding Level of Care Code Tele Est Pt Level 4 (14293) Diagnoses Sinus congestion R09.81 Bilateral primary osteoarthritis of knee M17.0 Multiple myeloma, remission status unspecified C90.00 Multiple myeloma remission status: unspecified Assessment & Plan Assessment & Plan (1) Sinus congestion: Code(s): R09.81 - Nasal congestion Category: Medical Plan: For the sore throat can take Cepacol lozenges, discussed about Delsym to help with dry cough so she can rest and advised to increase oral fluids. Patient also can take Tylenol for chills and fever. Augmentin antibiotic prescription sent in (2) Bilateral primary osteoarthritis of knee: Code(s): M17.0 - Bilateral primary osteoarthritis of knee Category: Medical Plan: Discussed with the patient that in 08/22/2023 the x-ray was done showing advanced osteoarthritis and with near total joint space loss. Advised patient that we will refer to [facility] (3) Multiple myeloma: Comment: Most of her complaints, her pertaining to her multiple myeloma. She is relatively happy that the current med ( Velcade ) is working better. Code(s): C90.00 - Multiple myeloma not having achieved remission Category: Medical Qualifiers: Multiple myeloma remission status: unspecified Qualified Code(s): C90.00 - Multiple myeloma not having achieved remission Plan: Patient continues to follow-up with Hematology-Oncology and since no schedules were written she will need to call. Plan - For sinusitis: Prescribe a course of amoxicillin/clavulanic 500 mg three times daily for seven days. Recommend adequate hydration and continuation of nprj-don-weheuiq cough medications as needed. - For chronic sinusitis: Address with the aforementioned antibiotic regimen with the consideration of sinus involvement. - For advanced osteoarthritis of the knees: Refer to [facility] for further evaluation and consideration of knee replacement surgery. - For multiple myeloma management: Continue to coordinate care with Dr. Muniz. I discussed the diagnosis of explaining that the prescribed Augmentin should help address any bacterial involvement. I emphasized the importance of hydration and the continuation of supportive cough medications. We also reviewed the current state of her osteoarthritis and the necessity of orthopedic evaluation considering her interest in pursuing a knee replacement for improved mobility and quality of life, despite her recent chemotherapy. I obtained her verbal consent to proceed with the referral to [facility]. We did not identify any immediate need for altering her myeloma treatment, ensuring continuity under Dr. Muniz's guidance. The patient acknowledges the recommendations and recognizes the need to follow up accordingly with various specialists, including the need to schedule her next visit with Dr. Muniz. - Take Augmentin n 500 mg three times daily for 7 days. - Continue hydration and use cough medications as needed. - Follow up with [facility] for knee evaluation. - Confirm the next appointment with Dr. Muniz for ongoing myeloma management. - Monitor symptoms and seek immediate care if experiencing severe reactions or no improvement. Orders: Referrals Orthopedics Referral M17.0 - Bilateral primary osteoarthritis of knee Medications: New amoxicillin-pot clavulanate 500-125 mg 1 tab PO TID 21 tabs 0RF R09.81 - Nasal congestion
== END 2024-08-08 10:46 | disposition home or self-care (01) ==
LOC: HO.HMCH 09:16
PROVIDERS: PCP Internal Medicine; Visit Provider Internal Medicine
DX: R09.81 Nasal congestion (principal); M17.0 Bilateral primary osteoarthritis of knee; C90.00 Multiple myeloma not having achieved remission

== ENCOUNTER → 2024-08-08 09:16 | Outpatient (BNVA) | payer MEDICARE, SELFPAY | PROVIDERS: PCP Internal Medicine; Visit Provider Internal Medicine ==

== ENCOUNTER 2024-08-11 11:20 | Outpatient (AMB) | payer MEDICARE, SELFPAY ==
--- NOTE | 2024-08-11 12:22 | AM.OFFWIN_ITS ---
Intake Vital Signs 08/11/24 12:23 Weight 166 lb 6 oz BP 138/88 Blood Pressure Location Lt brachial Position Sitting Pulse 67 Pulse Source Pulse Oximeter Temp 98.3 F Temp Source Oral Pulse Oximetry (%) 96 Oxygen Delivery Method Room Air Intake Visit Reasons: EP sore throat, sinus congestion, chest congestion Intake Note: Patient here for sore throat, cough, chest congestion that started Sunday. Patient Tobacco Use Status: Former Tobacco user Allergies oxycodone [From OXYCONTIN] Allergy (Mild, Verified 08/11/24 12:32) PRURITUS, severe itching adhesive tape Allergy (Unknown, Verified 08/11/24 12:32) BLISTERS cephalexin [Keflex] Allergy (Unknown, Verified 08/11/24 12:32) hives doxycycline [DOXYCYCLINE] Adverse Reaction (Intermediate, Verified 08/11/24 12:32) STOMACH PAINS Do you need a note to return to daycare/school/sports/work: No HPI EP sore throat, sinus congestion, chest congestion HPI Details This note is constructed using voice recognition software. While every effort has been made to ensure accuracy, garage door installer errors may have been included. The patient is a 79 year old female who presents to the clinic today with sore throat, sinus congestion, chest congestion since last Sunday. She reports that she contacted her PCP, who ordered amoxicillin. This was ordered for presumed sinus infection. She reports that she took the amoxicillin on Sunday and Sunday and developed diarrhea. She has chronic diarrhea and this worsened her chronic diarrhea. She denies fever, chills. She reports that she took a COVID test on Sunday and it was negative. She declines any further COVID testing today. She reports a an extensive history of weakened immune system. [facility] Medical History (Updated 08/08/24 @ 13:53 by Markos James MD) Osteoarthritis of knees, bilateral Abnormal finding on MRI of brain Long-term current use of intravenous immunoglobulin (IVIG) Tinea pedis Urinary incontinence, urge Urinary frequency Urinary urgency TSH elevation Nasal congestion Hospital discharge follow-up Sepsis Pneumonia Acute exacerbation of chronic obstructive pulmonary disease Chronic cough Generalized anxiety disorder Right low back pain Hand pain Dysphagia, pharyngoesophageal phase Costochondritis Dyspnea on exertion COPD (chronic obstructive pulmonary disease) Chronic diarrhea Anxiety Cataract Bladder cancer GERD (gastroesophageal reflux disease) Asthma IBS (irritable bowel syndrome) Hypertension Multiple myeloma Surgical History History of esophagogastroduodenoscopy (EGD) H/O colonoscopy History of eyelid surgery History of tonsillectomy H/O wrist surgery H/O eye surgery History of arthroscopy of both knees H/O rotator cuff surgery H/O cardiac catheterization Family History Father Pancreatic cancer Diabetes Stroke Mother No problems noted. Sister Diabetes Son No problems noted. Social History Household Members: Spouse Housing: Condominium Are you a primary personal care home administrator to a significant other at home: No Do you presently have visiting nurse or other home services: Yes ([facility]) Alcohol intake: never Patient Tobacco Use Status: Former Tobacco user Tobacco use type: Cigarette e-Cigarette/Vaping Use: Never Used Second Hand Smoke Exposure: No Advance Directives Date on File: 07/20/23 service: No Current occupational status: retired Cognitive needs: No Hearing needs: No Vision needs: Yes Review of Systems Const All systems reviewed & are unremarkable except as noted in HPI and below Physical Exam Vital Signs: Last Vital Signs Temp 98.3 F 08/11/24 12:23 Pulse 67 08/11/24 12:23 BP 138/88 08/11/24 12:23 Pulse Ox 96 08/11/24 12:23 Oxygen Delivery Method Room Air 08/11/24 12:23 Const General: cooperative, healthy appearing, comfortable and no acute distress Orientation/consciousness: patient oriented x3 Limitations: no limitations HEENT Head: Yes normal to inspection Ears: hearing grossly normal bilaterally, external ears normal and TM's normal bilaterally General nose exam: Normal external nose present, Normal nares present, Abnormal mucous membranes and turbinates present erythematous and Nasal discharge present purulent Face and sinus: Yes normal facial exam and Yes sinus tenderness Mouth: Normal oral and palatal mucosa present and moist mucous membranes Throat: Yes posterior oropharynx normal, Yes tonsils normal and Yes uvula midline Eyes General: appearance normal, both eyes and all related structures Neck Neck: Yes normal visual inspection Resp Effort & Inspection: normal respiratory effort, able to speak in complete sentences, Actively coughing, no respiratory distress, not tachypneic, no tripod positioning and no use of accessory muscles Auscultation: clear to auscultation bilaterally Cardio Rate: regular rate Rhythm: regular rhythm Heart sounds: normal S1 and S2 Skin General skin exam: no rashes or lesions noted Neuro General: patient oriented x3 Extrem General: Yes normal to inspection and Yes no clubbing, cyanosis or edema Results AMB Rapid Strep AMB Rapid Strep Negative Last Edit by EMANUEL Corrales on 08/11/24 1 2 :48 Assessment & Plan Assessment & Plan (1) Sinusitis: Code(s): J32.9 - Chronic sinusitis, unspecified Qualifiers: Sinusitis location: maxillary Chronicity: acute Recurrence: non- recurrent Qualified Code(s): J01.00 - Acute maxillary sinusitis, unspecified Plan: Supportive measures encouraged and reviewed. Advised consideration of sinus rinse if needed. Antibiotic sent to requested pharmacy, advised patient to take antibiotics until completed and not to stop if feeling better, unless the patient has side effects. Advised patient to follow up with primary care provider with worsening or failure to resolve. Advised increased hydration efforts for the diarrhea, and to return for evaluation should she have worsening beyond her normal chronic condition. Plan See above for full details and plan. Orders: Orders AMB Rapid Strep Screen Today Z13.9 - Encounter for screening, unspecified Medications: New azithromycin For 250 mg dose pack: take 500 mg today (day 1), then 250 mg for 4 days (days 2-5) PO 6 tabs 0RF Coding Level of Care Code Est Pt Level 3 (67731) Diagnoses Acute non-recurrent maxillary sinusitis J01.00 Sinusitis location: maxillary Chronicity: acute Recurrence: non-recurrent
[2024-08-11 12:23] VITALS: BP 138/88; PULSE 67; TEMP 36.8; O2SAT 96
== END 2024-08-11 13:36 | disposition home or self-care (01) ==
PROVIDERS: PCP Internal Medicine; Visit Provider Registered Nurse
DX: Z13.9 Encounter for screening, unspecified (principal); J01.00 Acute maxillary sinusitis, unspecified

== ENCOUNTER → 2024-08-11 11:20 | Outpatient (BNVA) | payer MEDICARE, SELFPAY | PROVIDERS: PCP Internal Medicine; Visit Provider Registered Nurse | DX: J01.00 Acute maxillary sinusitis, unspecified (principal) | CPT/HCPCS: 87880; 99212 ==

== ENCOUNTER 2024-08-12 15:06 | Outpatient (REF) | payer MEDICARE, SELFPAY ==
[2024-08-12 16:03] LABS: Hematocrit 36.6 % (37.0-47.0); Hemoglobin 12.2 g/dl (12.0-16.0); Mean Corpuscular HGB Conc 33.3 g/dl (31.0-35.0); Mean Corpuscular Hemoglobin 29.7 pg (27.0-33.0); Mean Corpuscular Volume 89.1 fL (80.0-98.0); Mean Platelet Volume 8.7 fL (9.4-12.3); Platelet Count 130 X10*3/uL (160-400); Red Blood Count 4.11 X10*6/uL (4.20-5.50); Red Cell Distribution Width 14.3 % (11.0-16.0); White Blood Count 6.6 X10*3/uL (4.8-10.8)
[2024-08-12 16:46] LABS: Albumin Level 4.3 g/dL (3.5-5.0); Anion Gap 17 (12-20); Aspartate Amino Transferase 41 U/L (5-31); Bilirubin Direct 0.1 mg/dL (0.0-0.5); Bilirubin Total 0.4 mg/dL (0.0-1.0); Blood Urea Nitrogen 22 mg/dL (9-16); Carbon Dioxide 23 mmol/L (22-29); Chloride 103 mmol/L (96-108); Estimated Glomerular Filt Rate 37; Glucose Random 141 mg/dL (60-115); Potassium 4.2 mmol/L (3.3-5.1); Sodium 139 mmol/L (135-145); Total Protein 7.5 g/dL (6.5-8.0)
[2024-08-12 17:22] LABS: Alanine Aminotransferase 29 U/L (0-31); Alkaline Phosphatase 92 U/L (39-117)
[2024-08-13 12:48] LABS: CDiff Gene PCR NEGATIVE (Negative)
== END 2024-08-12 15:07 | disposition home or self-care (01) ==
LOC: HO.LAB 15:06
PROVIDERS: PCP Internal Medicine; Visit Provider Internal Medicine
DX: R19.7 Diarrhea, unspecified (principal)
CPT/HCPCS: 36415; 80048; 80076; 85027; 87177; 87209; 87493

== ENCOUNTER 2024-08-20 08:34 | Outpatient (REF) | payer MEDICARE, SELFPAY | END 2024-08-20 08:35 | disposition home or self-care (01) | LOC: HO.LAB 08:34 | PROVIDERS: PCP Internal Medicine | DX: Z13.89 Encounter for screening for other disorder (principal) | CPT/HCPCS: 99212 ==

== ENCOUNTER 2024-08-20 08:34 | Outpatient (AMB) | payer MEDICARE, SELFPAY ==
--- NOTE | 2024-08-20 08:44 | MHC.OFFWIV ---
Intake Vital Signs 08/20/24 08:46 Weight 166 lb BP 140/90 H Blood Pressure Location Lt brachial Position Sitting Pulse 80 Pulse Source Pulse Oximeter Pulse Oximetry (%) 96 Oxygen Delivery Method Room Air Intake Visit Reasons: EP upper respiratory, tight chest Intake Note: Patient here for chest tightness that has been present for about 1 week. Patient Tobacco Use Status: Former Tobacco user Allergies oxycodone [From OXYCONTIN] Allergy (Mild, Verified 08/20/24 08:45) PRURITUS, severe itching adhesive tape Allergy (Unknown, Verified 08/20/24 08:45) BLISTERS cephalexin [Keflex] Allergy (Unknown, Verified 08/20/24 08:45) hives doxycycline [DOXYCYCLINE] Adverse Reaction (Intermediate, Verified 08/20/24 08:45) STOMACH PAINS Do you need a note to return to daycare/school/sports/work: No HPI HPI Comments History of Present Illness Details History The patient is an 79-year-old female presenting with recurrent respiratory infection. She reports experiencing such infections annually between and , with previous episodes involving hospitalization. This particular episode began on 04/08/21. The patient describes her condition as complicated by a history of extensive chemotherapy, which consisted of 16 hours of continuous treatment, resulting in suppressed immune function. Currently, she is on monthly intravenous immunoglobulin (IVIg) therapy. Her symptoms include coughing, shortness of breath, and wheezing. The patient denies any fevers exceeding 100.4?F during this period, maintaining an elevated baseline body temperature of 97?F. She has a documented history of Chronic Obstructive Pulmonary Disease (COPD), for which she uses an albuterol inhaler. Although she possesses an oxygen machine at home, she utilizes supplemental oxygen (2 liters) only as needed and has not utilized it recently. Recent tests for COVID-19 have returned negative results, and she is up to date on RSV, flu, and pneumonia vaccinations. The patient recalls testing positive for influenza the day before last year and for COVID-19 the year prior. Recent use of [id number] medication includes potassium and chlorpheniramine. She experiences gastrointestinal issues with Doxycycline and Augmentin but denies other medication allergies. Additional medical history includes ear surgery, with no recent audiology evaluation due to earwax obstruction. Physical Exam General: Cooperative, healthy appearing, comfortable and no acute distress Orientation/consciousness: Patient oriented x3 Limitations: No limitations Head: Normal to inspection Ears: Hearing grossly normal bilaterally, external ears normal and TM's normal bilaterally, scarring on both Nose: Normal external nose present, Normal nares present and No nasal discharge present Face and sinus: Normal facial exam and Yes sinuses nontender Mouth: Normal oral and palatal mucosa present and moist mucous membranes Throat: Yes tonsils normal, Yes uvula midline. Posterior oropharynx erythema Eyes: Appearance normal, both eyes and all related structures Neck: Normal visual inspection Respiratory: Clear to auscultation bilaterally. Normal respiratory effort, able to speak in complete sentences, no respiratory distress, not tachypneic, no tripod positioning and no use of accessory muscles. Cardiovascular: Regular rate and rhythm. Normal S1 and S2 Skin: No rashes or lesions noted Neuro: Patient oriented x3 Extremities: Normal to inspection and Yes no clubbing, cyanosis or edema [facility] Medical History (Updated 08/20/24 @ 09:32 by Miriam Holley PA-C) Osteoarthritis of knees, bilateral Abnormal finding on MRI of brain Long-term current use of intravenous immunoglobulin (IVIG) Tinea pedis Urinary incontinence, urge Urinary frequency Urinary urgency TSH elevation Nasal congestion Hospital discharge follow-up Sepsis Pneumonia Acute exacerbation of chronic obstructive pulmonary disease Chronic cough Generalized anxiety disorder Right low back pain Hand pain Dysphagia, pharyngoesophageal phase Costochondritis Dyspnea on exertion COPD (chronic obstructive pulmonary disease) Chronic diarrhea Anxiety Cataract Bladder cancer GERD (gastroesophageal reflux disease) Asthma IBS (irritable bowel syndrome) Hypertension Multiple myeloma Surgical History History of esophagogastroduodenoscopy (EGD) H/O colonoscopy History of eyelid surgery History of tonsillectomy H/O wrist surgery H/O eye surgery History of arthroscopy of both knees H/O rotator cuff surgery H/O cardiac catheterization Family History Father Pancreatic cancer Diabetes Stroke Mother No problems noted. Sister Diabetes Son No problems noted. Social History Household Members: Spouse Housing: [facility] Are you a primary hearing care professional to a significant other at home: No Do you presently have visiting nurse or other home services: Yes ([facility]) Alcohol intake: never Patient Tobacco Use Status: Former Tobacco user Tobacco use type: Cigarette e-Cigarette/Vaping Use: Never Used Second Hand Smoke Exposure: No Advance Directives Date on File: 07/20/23 service: No Current occupational status: retired Cognitive needs: No Hearing needs: No Vision needs: Yes Review of Systems Const All systems reviewed & are unremarkable except as noted in HPI and below Physical Exam Vital Signs: Last Vital Signs Pulse 80 08/20/24 08:46 BP 140/90 H 08/20/24 08:46 Pulse Ox 96 08/20/24 08:46 Oxygen Delivery Method Room Air 08/20/24 08:46 Assessment & Plan Assessment & Plan (1) URI, acute: Code(s): J06.9 - Acute upper respiratory infection, unspecified Plan: Plan - Conduct testing for influenza, COVID-19, and RSV using PCR methods for accurate diagnosis. - Order a chest X-ray to evaluate for possible pneumonia or other pulmonary complications. - Prescribed Levaquin (due to pt allergies) to address bacterial etiologies contributing to the respiratory symptoms. Gave BBW of tendon susceptible to injury so no jumping, hard excercise and to be careful for the next few months. Pt just finished Zpak with no improvement in her symptoms. - Encourage continued monthly IVIg therapy to support compromised immune status. - Recommend use of albuterol inhaler as needed for symptomatic relief of COPD exacerbations. - Advise patient on monitoring and managing potential gastrointestinal side effects of medications, considering her allergies. Adjust medications if necessary. - Educate the patient on consistent use of preventive measures against respiratory infections, given her immunocompromised state. Patient was informed and verbally consented to the use of an ambient scribe for clinic note documentation during this visit Orders: Orders SARS-CoV2/FLU/RSV Today J06.9 - Acute upper respiratory infection, unspecified XR chest 2V Today R05.9 - Cough, unspecified Medications: New levofloxacin 750 mg PO Q24H 5 tabs 0RF Coding Level of Care Code Est Pt Level 4 (14965) Diagnoses URI, acute J06.9
[2024-08-20 08:46] VITALS: BP 140/90; PULSE 80; O2SAT 96
== END 2024-08-20 10:08 | disposition home or self-care (01) ==
PROVIDERS: PCP Internal Medicine; Visit Provider Physician Assistant
DX: J06.9 Acute upper respiratory infection, unspecified (principal)

== ENCOUNTER 2024-08-20 09:41 | Outpatient (REF) | payer MEDICARE, SELFPAY ==
--- NOTE | ~2024-08-20 | XR_ITS ---
EXAMINATION: XR CHEST CLINICAL INFORMATION: R05.9 - Cough, unspecified. COMPARISON: 08/05/2023 TECHNIQUE: 2 views of the chest were obtained. FINDINGS: There is no gross pneumothorax. Dextroscoliosis of the thoracic spine with multilevel degenerative changes. Heart size is normal. Previously noted sclerotic densities involving some of the bilateral ribs felt to possibly representing callus from old fractures are redemonstrated. 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 Degenerative changes in the thoracic spine. No significant pleural effusion. No new focal consolidation. XR/XR chest 2V IMPRESSION: No new focal consolidation. 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 This study was presented today to 08/20/2024 for interpretation. Stat results provided at this time as requested by referring provider. Electronically signed by: Kimber Tellez MD 08/20/2024 12:54 PM [facility]
[2024-08-20 14:15] LABS: Influenza A PCR NEGATIVE (Negative); Influenza B PCR NEGATIVE (Negative); Resp Syncy Virus RNA Qual PCR POSITIVE (Negative); SARS COV2 PCR INHOUSE NEGATIVE (Negative)
== END 2024-08-20 09:42 | disposition home or self-care (01) ==
LOC: HO.HMGCX 09:41
PROVIDERS: PCP Internal Medicine; Visit Provider Physician Assistant
DX: R05.9 Cough, unspecified (principal); J06.9 Acute upper respiratory infection, unspecified
CPT/HCPCS: 0241U; 71046; 99212

== ENCOUNTER 2024-08-29 10:15 | Outpatient (RCR) | payer MEDICARE, SELFPAY ==
[2024-01-14] VITALS (7 sets, daily range): BP systolic 122–144; BP diastolic 37–71; PULSE 61–70; RESP 20; TEMP 36.1; O2SAT 97; BMI 29.2
[2024-01-14] MEDS: Acetaminophen 325 MG TABLET 650 MG PO (11:36)
[2024-01-14] MEDS: methylPREDNISolone Sod Succ 40 MG/ML VIAL IVPUSH (11:40)
[2024-01-14] MEDS: diphenhydrAMINE HCL 50 MG/ML VIAL 25 MG IVPUSH (11:40)
[2024-01-14] MEDS: Immun Glob G(IgG)/Gly/IGA Ov50 300 ML IV (11:47)
[2024-02-15] VITALS (8 sets, daily range): BP systolic 125–140; BP diastolic 47–60; PULSE 60–67; RESP 16–20; TEMP 36.3
[2024-02-15] MEDS: methylPREDNISolone Sod Succ 40 MG/ML VIAL IVPUSH (11:14)
[2024-02-15] MEDS: diphenhydrAMINE HCL 50 MG/ML VIAL 25 MG IVPUSH (11:14)
[2024-02-15] MEDS: Acetaminophen 325 MG TABLET 650 MG PO (11:15)
[2024-02-15] MEDS: Immun Glob G(IgG)/Gly/IGA Ov50 300 ML IV (11:20)
[2024-04-24 09:43] VITALS: BP 129/49; PULSE 60; TEMP 36.6
[2024-04-24] MEDS: GAMMAGARD IV (10:03)
[2024-04-24] MEDS: IMMUNE GLOBULIN 10% IV (10:03)
[2024-04-24] MEDS: diphenhydrAMINE HCL 50 MG/ML VIAL 25 MG IVPUSH (10:07)
[2024-04-24 10:30] VITALS: BP 134/50; PULSE 55; RESP 16
[2024-04-24 10:43] VITALS: BP 135/53; PULSE 57; RESP 16
[2024-04-24 11:00] VITALS: BP 125/58; PULSE 55; RESP 16
[2024-04-24 11:30] VITALS: BP 141/48; PULSE 56; RESP 18
[2024-04-24 12:08] VITALS: BP 134/45; PULSE 60; RESP 18
[2024-04-24] MEDS: 0.9 % Sodium Chloride Flush 10 ML SYRINGE 5 ML IVFLUSH (12:28)
[2024-05-29] VITALS (7 sets, daily range): BP systolic 116–132; BP diastolic 45–52; PULSE 61–75; RESP 14–20; TEMP 36.6; O2SAT 97
[2024-05-29] MEDS: methylPREDNISolone Sod Succ 40 MG/ML VIAL IVPUSH (10:48)
[2024-05-29] MEDS: diphenhydrAMINE HCL 50 MG/ML VIAL 25 MG IVPUSH (10:50)
[2024-05-29] MEDS: IMMUNE GLOBULIN 10% IV (10:51)
[2024-05-29] MEDS: GAMMAGARD IV (10:51)
--- NOTE | 2024-05-29 10:58 | HO.INF ---
pt took fioricet recently so tylenol not given
[2024-05-29] MEDS: 0.9 % Sodium Chloride Flush 10 ML SYRINGE 5 ML IVFLUSH (12:59)
[2024-06-26 10:20] VITALS: BP 141/47; PULSE 67; RESP 14; TEMP 37.1; O2SAT 98
[2024-06-26] MEDS: IMMUNE GLOBULIN 10% IV (10:40)
[2024-06-26] MEDS: GAMMAGARD IV (10:40)
[2024-06-26 10:45] VITALS: BP 137/54; PULSE 67
[2024-06-26 11:01] VITALS: BP 128/47; PULSE 61
[2024-06-26 11:16] VITALS: BP 116/40; PULSE 58
[2024-06-26 11:32] VITALS: BP 101/76; PULSE 62
[2024-06-26 12:08] VITALS: BP 125/45; PULSE 59; RESP 18
[2024-06-26] MEDS: 0.9 % Sodium Chloride Flush 10 ML SYRINGE 5 ML IVFLUSH (13:10)
[2024-07-28] VITALS (7 sets, daily range): BP systolic 124–153; BP diastolic 42–64; PULSE 61–71; RESP 16–18; TEMP 36.6
[2024-07-28] MEDS: Acetaminophen 325 MG TABLET 650 MG PO (10:52)
[2024-07-28] MEDS: diphenhydrAMINE HCL 50 MG/ML VIAL 25 MG IVPUSH (10:52)
[2024-07-28] MEDS: methylPREDNISolone Sod Succ 40 MG/ML VIAL IVPUSH (10:57)
[2024-07-28] MEDS: IMMUNE GLOBULIN 10% IV (11:00)
[2024-07-28] MEDS: GAMMAGARD IV (11:00)
[2024-08-29] VITALS (7 sets, daily range): BP systolic 118–127; BP diastolic 41–53; PULSE 63–77; RESP 18; TEMP 36.7; O2SAT 97; BMI 29.6
[2024-08-29] MEDS: diphenhydrAMINE HCL 50 MG/ML VIAL 25 MG IVPUSH (10:23)
[2024-08-29] MEDS: methylPREDNISolone Sod Succ 40 MG/ML VIAL IVPUSH (10:27)
[2024-08-29] MEDS: Immune Globulin 10% Gammagard 30 GM/300 ML VIAL IV (10:30)
== END 2024-09-10 11:45 | disposition home or self-care (01) ==
LOC: HO.INF 10:15
PROVIDERS: Visit Provider Internal Medicine Medical Oncology
DX: C90.00 Multiple myeloma not having achieved remission (principal)
CPT/HCPCS: 96365; 96366; 96375; J1200; J1569; J2919

== ENCOUNTER 2024-09-11 10:10 | Outpatient (AMB) | payer MEDICARE, SELFPAY ==
--- NOTE | 2024-09-11 10:39 | A.OFFVIS_ITS ---
Vital Signs 09/11/24 10:44 Height 5 ft 3 in Weight 164 lb BMI 29.0 BP 116/53 L Blood Pressure Location Lt brachial Position Sitting Pulse 66 Intake Visit Reasons: 6 month follow Cholelithiasis Intake Note: Patient follow up for Cholelithiasis Patient cc: occasional swallowing discomfort, and diarrhea/loose stool, abdominal pain with bloating, and some dates with acid reflex. Medical Administrator Required: No Accompanied by: Self / Same As Patient Allergies oxycodone [From OXYCONTIN] Allergy (Mild, Verified 12/15/24 16:55) PRURITUS, severe itching adhesive tape Allergy (Unknown, Verified 12/15/24 16:55) BLISTERS cephalexin [Keflex] Allergy (Unknown, Verified 12/15/24 16:55) hives doxycycline [DOXYCYCLINE] Adverse Reaction (Intermediate, Verified 12/15/24 16:55) STOMACH PAINS Medication List - Last Reconciled 09/11/24 by Trena Dotson MD acetaminophen (Tylenol Extra Strength) 1,000 mg PO Q6H PRN albuterol sulfate 90 mcg/actuation (Ventolin HFA) 2 puffs inhalation Q4-6H PRN 30 days amlodipine 5 mg PO DAILY ascorbate calcium (vitamin C) 500 mg PO DAILY atorvastatin 20 mg PO DAILY dwcutzosnw-sahufgwjjcdrp-prmu 50-325-40 mg 1 tab PO Q6H PRN cholecalciferol (vitamin D3) 50 mcg PO DAILY desvenlafaxine succinate ER 25 mg PO DAILY diphenoxylate-atropine 2.5-0.025 mg (Lomotil) 1 tab PO BEDTIME PRN gabapentin 100 mg PO TID 90 days lorazepam 0.5 mg PO BID PRN losartan 100 mg PO DAILY 90 days mecobalamin (vitamin B12) (B12 Active) 1,000 mcg PO DAILY meloxicam 15 mg PO DAILY metoprolol succinate ER 50 mg PO DAILY 90 days multivitamin 1 tab PO DAILY triamcinolone acetonide (Nasacort Allergy) 1 spray intranasal DAILY valacyclovir 500 mg PO DAILY HPI HPI 6 month follow Cholelithiasis: Details: FU GI clinic visit for this 79-year-old female for FU of GERD and IBS. Patient has been followed by Dr. Bojorquez since 2014 for? nausea,? epigastric pain, heartburn, dysphagia and diarrhea She is followed by Dr Muniz in heme-onc for multiple myeloma. TODAYS VISIT: Patient cc: occasional swallowing discomfort, and diarrhea/loose stool, abdominal pain with bloating, and some dates with acid reflex. No chemo for a year now She was sick the whole month of Aug and diagnosed with RSV. Some days she had diarrhea from morning till night. Prescribed amoxicillin and had constant diarrhea with incontinence Decreased appetite and has lost a few lbs. After she eats, she has upper abd pain intermittently (usually half an hour or later) - feels like pressure Sometimes she takes peptobismol or place ice or cold pack on it with relief - does not feel like an upset stomach Eyes are bad when stomach is bad - diagnosed with dry eyes. PAST VISIT: Continues to have dysphagia - usually with solid food. Tries to eat more slowly Has cut back on foods due to IBS Has 3 normal BMs a week - has diarrhea rest of the time with 3-4 BMs in a row. Has not had chemo since September. Trying to get rid of sciatica and has to use a walker and doing PT and Laser light PAST VISITS: CC: She is to [place] CAR T [place] [facility] [place] Her T cells will be removed and reinjected after 5 weeks to kill the cancer cells Had to cancel her vacation since she got influenza infection on the day she was to travel Complains of post prandial upper abdominal pain Trying to eat smaller portions more slowly Diarrhea with 3 to 8 BMs per day. Uses imodium, pepto-bismol and Lomotil Trying to drink a lot of liquids and electrolytes Has been having intermittent reddish orange/rust colored stool all week. Denies noticing any blood. Diarrhea has not been too bad this week - had a bout on 05/07/23 Three episodes on 05/10/23. Notes post prandial abdominal pain and bloating intermittently Complains of postprandial abdominal pain/pressure and unsure what to eat. Stomach does not feel good. Continues to have dysphagia and can have regurgitation of food into her throat (new problem) Intermittent heartburn and takes peptobismol or TUMS Continues to have loose stools - not always diarrhea Stopped writing down what she eats since she is unable to find a pattern. Takes 2 tab of immodium when she has increased diarrhea and takes another 2 tablets if she continues to have diarrhea. Takes Tramadol less than a few times a month and not daily. Decreased her treatment Velcade (Sunday treatment was stopped) due to hair loss. Has mets to the back and spine BMs are rarely formed - either mush or liquid, and sometimes orange in color and rarely diarrhea. Wt gain despite eating less - eats until she feels full. Does not eat big portions. Started taking a nutrition shake. Drinks a lot of water. Uses a heat pack on the stomach since it hurts. Notes urgency after she eats. Keeps a journal and is unable to find a pattern Sometimes she notes a little blood on the side of the stools Took some ice cream and had diarrhea after eating it Takes Lactose free milk Rarely has trouble going. PAST VISITS: Hospitalized in 03/2022 with COPD and pneumonia Notes intermittent cough usually in the am. On a steroid taper at present. Continues to have dysphagia with solids and large pills. Diarrhea is not too bad. Had an episode of gelatinous stool on 04/07/22 after she went home from the hospital Has 1 to 5 BMs a day. Takes Colestipol and 1 imodiun when she has diarrhea. Unable to identify precipitating foods. Avoids spicy foods Getting treatment for MM every 2 weeks followed by dexamethasone on Sun and . Seeing her Chiropractor for aches and pains - which is helping Stopped Creon since it was causing abdominal cramps. Notes diarrhea 2 -3 times a week - not related to treatment. Not taking colestipol due to concern for constipation. Intermittent rectal bleeding when she is constipated which she attributes to hemorrhoids. Takes Tramadol for body pains. Keeping a journal of diet and BMs Sometimes certain foods won't bother her and sometimes its a disaster Notes worsening dysphagia to liquids and solids - denies regurgitation with dysphagia episodes. Dysphagia is more often with liquids than solids. Denies coughing spells with dysphagia Broke her tooth and had nausea? due to enamel Starting to have a little problem with constipation (none since 2017) Still has intermittent diarrhea and is more manageable - taking imodium, Tums and colestipol Can have upto 7 BMs a day. Getting sinus DIEGO's. Kept a dairy of her BMs. Continues to have loose and liquid BMs. BMs are broken into lumps and bumps Eating less and gaining wt. Does not know what to eat since a lot of foods bother her Avoids salads and broccoli Stool studies were reviewed. Notes fat in the stool intermittently Continues to have intermittent diarrhea. On Revlimid (Lenalidomide)every 3 weeks - rest x 1 week - unsure if she has incrased diarrhea while on Revlimid. Can have lower abd pain, or pain can move up into the epigastrium. Has been noticing some gas over the past month. Biggest issue is her sleep since she has to get up to urinate. Her bowels do not interrupt her sleep. Can have 1-2 and upto 5 Bms a day - upto 7 times once. Concerned she may be loosing her nutrients. Takes Colestipol, imodium or peptobismol which works and diarrhea can come right back TUMS does not help. Diagnosed with Multiple Myeloma 5 yrs ago when she noted worsening fatigue. Takes Pantoprazole at night - advised by Dr Bojorquez. Takes imodium for the diarrhea. Sometimes takes peptobismol, meenakshi seltzer or TUMS for the diarrhea. She is taking colestipol once daily and takes a 2nd dose if diarrhea is bad LABS IN [facility] :?celiac serologies were negative, stool wbc and culture negative, C Diff was equivocal IMAGING STUDIES:? 05/2023 ABD US SHOWED: 1. There is cholelithiasis. 2. There is generalized increase in hepatic echotexture, consistentwith fatty infiltration or hepatocellular disease. Please correlateclinically. Characteristic pericholecystic sparing favors fatty infiltration. No focal hepatic mass or intrahepatic biliary dilatation is seen. 3. There is hepatomegaly. 11/07/21 BARIUM SWALLOW SHOWED:Esophageal caliber is normal. There is moderate dysmotility. No fixedstricture or extrinsic mass lesion demonstrated. No mucosal abnormality. No hiatal hernia. No gastroesophageal reflux observed. A barium tablet passed through the esophagus into the stomach. ENDOSCOPIC STUDIES:? 02/18/24 EGD SHOWED: ESOPHAGUS: GE junction at 35 cms. Mildly tortuous esophagus with a non- obstructing Schatzki's ring at GE junction. Biopsies were obtained from proximal esophagus to check for EOE. Esophageal balloon dilation was performed STOMACH: A few 3-4 mm benign appearing polyps in the gastric body and fundus - biopsied. Mild diffuse gastric erythema - biopsies were obtained from the body and antrum. DUODENUM: Normal - biopsied to check for celiac sprue Plan: Above findings were reviewed with the patient and relevant handouts were given and the discharge area. BIOPSIES SHOWED: A. Small bowel, biopsy: Superficial fragments of small bowel mucosa within normal limits; preserved villous architecture and no increased intraepithelial lymphocytes seen. B. Stomach, antrum, biopsy: Gastric antral mucosa with mild reactive gastropathy and incomplete intestinal metaplasia; negative for Helicobacter pylori and dysplasia. C. Stomach, body, biopsy: Gastric body mucosa within normal limits; negative for Helicobacter pylori, intestinal metaplasia and dysplasia. D. Stomach, polyp, biopsy: Fundic gland polyp; negative for Helicobacter pylori, intestinal metaplasia and dysplasia. E. Esophagus, proximal, biopsy: Squamous mucosa within normal limits; negative for inflammation (including intraepithelial eosinophils), fungal organisms and intestinal metaplasia 2018? EGD showed a small hiatal hernia. Same day colonoscopy was negative ? Except 1+ internal hemorrhoids.? Duodenal biopsies were normal, gastric biopsies showed mild chronic inactive gastritis and was negative for H pylori.? Random biopsies obtained from right and left colon were normal. Sep 2016? EGD AND COLONOSCOPY SHOWED: Hemorrhagic gastritis, soft changes consistent with possibility of gastroesophageal reflux disorder - GASTRIC BIOPSIES WERE NEGATIVE FOR H PYLORI.? Mild diverticulosis and +1 internal hemorrhoids. PLAN:? Patient will be reseen in my office in 4 weeks.? Repeat colon cancer screening would be recommended for 5-7 years depending on clinical conditions Patient cc: acid reflex, upper center abdominal pain with bloating, also dysphagia on and off with solid and liquid. [facility] Medical History Osteoarthritis of knees, bilateral Abnormal finding on MRI of brain Long-term current use of intravenous immunoglobulin (IVIG) Tinea pedis Urinary incontinence, urge Urinary frequency Urinary urgency TSH elevation Nasal congestion Hospital discharge follow-up Sepsis Pneumonia Acute exacerbation of chronic obstructive pulmonary disease Chronic cough Generalized anxiety disorder Right low back pain Hand pain Dysphagia, pharyngoesophageal phase Costochondritis Dyspnea on exertion COPD (chronic obstructive pulmonary disease) Chronic diarrhea Anxiety Cataract Bladder cancer GERD (gastroesophageal reflux disease) Asthma IBS (irritable bowel syndrome) Hypertension Multiple myeloma Surgical History History of oral surgery History of esophagogastroduodenoscopy (EGD) H/O colonoscopy History of eyelid surgery History of tonsillectomy H/O wrist surgery H/O eye surgery History of arthroscopy of both knees H/O rotator cuff surgery H/O cardiac catheterization Family History Father Pancreatic cancer Diabetes Stroke Mother No problems noted. Sister Diabetes Son No problems noted. Social History Household Members: [facility] Are you a primary summer child caregiver to a significant other at home: No Do you presently have visiting nurse or other home services: Yes ([facility]) Alcohol intake: never Patient Tobacco Use Status: Former Tobacco user Tobacco use type: Cigarette e-Cigarette/Vaping Use: Never Used Second Hand Smoke Exposure: No Advance Directives Date on File: 07/20/23 service: No Current occupational status: retired Cognitive needs: No Hearing needs: No Vision needs: Yes (Glasses) Review of Systems Const All systems reviewed & are unremarkable except as noted in HPI and below Physical Exam Vital Signs: Last Vital Signs Pulse 66 09/11/24 10:44 BP 116/53 L 09/11/24 10:44 BMI result Body Mass Index 29.0 Const General: no acute distress Nutritional Appearance: overweight Orientation/consciousness: patient oriented x3 HEENT Head: Yes normal to inspection Ears: hearing grossly normal bilaterally Eyes Sclerae: sclerae normal Pupils: Equal, round and reactive pupils present Neck Neck: Yes normal visual inspection Chest Chest palpation & inspection: normal inspection of the chest Resp Effort & Inspection: normal respiratory effort Auscultation: clear to auscultation bilaterally Cardio Palpation: normal PMI Rate: regular rate Rhythm: regular rhythm Heart sounds: S1 normal heart sound present, S2 normal heart sound present and no murmurs GI Palpation (GI): Soft to palpation, nontender and No hepatosplenomegaly present Auscultation: normal bowel sounds Rectal Exam - Female: deferred Skin General skin exam: no rashes or lesions noted Neuro General: patient oriented x3, gait normal and moves all extremities Cranial nerves: Yes Equal, round and reactive pupils present Psych Appearance: grossly normal Mental Status: mental status grossly normal Assessment & Plan Assessment & Plan (1) GERD (gastroesophageal reflux disease): Code(s): K21.9 - Gastro-esophageal reflux disease without esophagitis Category: Medical Qualifiers: Esophagitis presence: without esophagitis Qualified Code(s): K21.9 - Gastro-esophageal reflux disease without esophagitis (2) Chronic diarrhea: Code(s): K52.9 - Noninfective gastroenteritis and colitis, unspecified Category: Medical (3) Cholelithiasis: Code(s): K80.20 - Calculus of gallbladder without cholecystitis without obstruction Category: Medical (4) Upper abdominal pain: Code(s): R10.10 - Upper abdominal pain, unspecified Category: Medical Plan 79 YF with hypertension, asthma, anxiety disorder and multiple myeloma followed in GI for GERD and chronic diarrhea of unclear etiology. Past evaluation with colonoscopy and random biopsies were normal, celiac serologies were negative, stool wbc and culture negative, C Diff was equivocal Stool fat?and pancreatic elastase was normal. Pt was taking Revlimid (Lenalidomide) every 3 weeks for? multiple myeloma which can be associated with diarrhea and 39-49% of patient, abdominal pain in 10-12%, nausea and 11-30% and decreased appetite in 14% of patients.? ? Patient discontinued Revlimid without change in diarrhea. She was started on daratumumab faspro on 07/05. She has so far been tolerating it very well. She had last couple of treatments while she was vacationing in [place], last year, (she received week 7 on 08/23 and week 8 8 on 08/30 [address] the care [address] Schuyler Hicks, at [facility] in [place].) Pamelist was added for MM on 02/14/22 Pt was advised to continue taking imodium or peptobismol prn for diarrhea. She was given a trail of pancreatic enzymes (although stool pancreatic elastase was normal) and stopped taking it since it was associated with abdominal cramps A barium swallow showed?moderate dysmotility without stricture or extrinsic mass lesion. No hiatal hernia or gastroesophageal reflux was noted. 05/09/23 Abd US showed cholelithiasis and fatty liver 05/01/[address] Muniz (Oncology): She has been referred for physical therapy to strengthen her legs. l advised gentle therapy. That is helping a lot. She will continue the Decadron taper. She will go down to 4 mg. I will follow up on the free light chain ratio, monthly to gauge her response. She will continue on the Denosumab, q 6 months. 09/21/23 She is to start BATRES T cell therapy on 09/21/23 [place] [facility] [place] Her T cells will be removed and re-injected after 5 weeks to kill the cancer cells Complains of post prandial upper abdominal pain Diarrhea with 3 to 8 BMs per day. Pt advised to increase pantoprazole to twice a day. She will be scheduled for an EGD after BATRES T cell therapy is completed 09/11/24 She was sick the whole month of Aug and diagnosed with RSV. Some days she had diarrhea from morning till night. Prescribed amoxicillin and had constant diarrhea with incontinence Patient was advised to schedule an abdominal ultrasound for evaluation of abdominal pain. Follow-up in 4 weeks Orders: Orders US abdomen complete 09/17/24 R10.10 - Upper abdominal pain, unspecified Lipase 09/11/24 R10.10 - Upper abdominal pain, unspecified Liver Panel 09/11/24 R10.10 - Upper abdominal pain, unspecified Complete Blood Count Auto Diff 09/11/24 R10.10 - Upper abdominal pain, unspecified Coding Level of Care Code Est Pt Level 4 (06493) Diagnoses Gastroesophageal reflux disease without esophagitis K21.9 Esophagitis presence: without esophagitis Chronic diarrhea K52.9 Cholelithiasis K80.20 Upper abdominal pain R10.10 Time Spent (min) 22
[2024-09-11 10:44] VITALS: BP 116/53; PULSE 66; BMI 29.0
== END 2024-09-11 12:07 | disposition home or self-care (01) ==
PROVIDERS: PCP Internal Medicine; Visit Provider Internal Medicine Gastroenterology
DX: K21.9 Gastro-esophageal reflux disease without esophagitis (principal); K52.9 Noninfective gastroenteritis and colitis, unspecified; K80.20 Calculus of gallbladder without cholecystitis without obstruction; R10.10 Upper abdominal pain, unspecified
CPT/HCPCS: 99214

== ENCOUNTER → 2024-09-11 10:10 | Outpatient (BNVA) | payer MEDICARE, SELFPAY | PROVIDERS: PCP Internal Medicine; Visit Provider Internal Medicine Gastroenterology | DX: K21.9 Gastro-esophageal reflux disease without esophagitis (principal); K52.9 Noninfective gastroenteritis and colitis, unspecified; K80.20 Calculus of gallbladder without cholecystitis without obstruction; R10.10 Upper abdominal pain, unspecified | CPT/HCPCS: 99212 ==

== ENCOUNTER 2024-09-17 09:08 | Outpatient (REF) | payer MEDICARE, SELFPAY ==
--- NOTE | ~2024-09-17 | US_ITS ---
EXAMINATION: US ABDOMEN COMPLETE CLINICAL INFORMATION: Abdominal pain, history of gallstones. COMPARISON: Ultrasound abdomen 05/09/2023. Correlation made with PET CT 10/23/2023, and outside institution CT chest, abdomen, pelvis 11/01/2022. TECHNIQUE: Real-time imaging of the abdominal viscera. FINDINGS: PANCREAS: Visualized portions are unremarkable. ABDOMINAL AORTA: The proximal, mid, and distal segments are normal in caliber. INFERIOR VENA CAVA: Visualized portions are normal. LIVER: The liver is normal in size. The liver contour is normal. There is mildly diffuse increased liver parenchymal echogenicity, consistent with hepatic steatosis. No focal hepatic lesion. There is no intrahepatic biliary duct dilatation seen. GALLBLADDER: There are mobile gallstones present. The gallbladder is physiologically distended without evidence of wall thickening or pericholecystic fluid. Negative sonographic Ortiz's sign. COMMON BILE DUCT: Normal in caliber measuring 0.3 cm in diameter. RIGHT KIDNEY: No hydronephrosis. No renal calculi or suspicious focal parenchymal lesions. The kidney measures 11.4 cm in maximum dimension. There are 2 lower pole simple cysts, the larger measuring 0.8 x 0.6 x 0.6 cm. LEFT KIDNEY: No hydronephrosis. No renal calculi or suspicious focal parenchymal lesions. The kidney measures 11.0 cm in maximum dimension. There is an upper pole simple cyst measuring 4.9 x 4.7 x 4.8 cm. SPLEEN: The spleen measures 10.1 cm in maximum dimension. FREE FLUID: None. US/US abdomen complete IMPRESSION: 1. Cholelithiasis without evidence of acute cholecystitis. 2. Mild increased hepatic echogenicity suggesting steatosis. No focal lesions seen 3. Simple renal cysts. Electronically signed by: Fadi Schmitz MD 09/17/2024 10:12 AM [facility] [place]
== END 2024-09-17 09:09 | disposition home or self-care (01) ==
LOC: HO.US 09:08
PROVIDERS: PCP Internal Medicine; Visit Provider Internal Medicine Gastroenterology
DX: R10.10 Upper abdominal pain, unspecified (principal)
CPT/HCPCS: 76700

== ENCOUNTER → 2024-09-17 09:09 | Outpatient (BNV) | payer MEDICARE, SELFPAY | PROVIDERS: PCP Internal Medicine; Visit Provider Radiology Diagnostic Radiology | DX: R10.10 Upper abdominal pain, unspecified (principal) | CPT/HCPCS: 76700 ==

== ENCOUNTER 2024-10-09 08:21 | Outpatient (AMB) | payer MEDICARE, SELFPAY ==
--- OUTSIDE RECORDS SUMMARY | 2024-10-09 08:26 | XMS_ITS | Encounter Summary ---
Author Organization [employer] Address [address] [place] [address] Care Team Providers Care Engineering Aid Name Role Phone Unavailable Primary Care Provider Unavailabl e Encounter Details Date Type Department Care Team (Latest Contact Info) Description 10/05/2021 Abstract [facility] CONVERSIONS Dental, Provider, DDS Social History Tobacco Use Types Packs/Day Years Used Date Smoking Tobacco: Never Assessed Comments Unknown Sex and Gender Information Value Date Recorded Sex Assigned at Female 07/03/2022 10:23 AM EDT Legal Sex Female 10:23 AM EDT Gender Identity Female 07/03/2022 10:23 AM EDT Sexual Orientation Straight 07/03/2022 10 :23 AM EDT documented as of this encounter Plan of Treatment Not on file documented as of this encounter Visit Diagnoses Not on filedocumented in this encounter
--- OUTSIDE RECORDS SUMMARY | 2024-10-09 08:26 | XMS_ITS | Clinical Summary ---
Author Organization [address] [facility] Address [address] [place] [address] Phone Care Team Providers Care Optical Designer Name Role Phone Markos Jamse MD Primary Care Provider Allergies Active Allergy Reactions Criticality Noted Date Comments Doxycycline 01/08/2024 Oxycodone 01/08/2024 Medications Medication Sig Dispensed Refills Start Date End Date Status albuterol-budesonide (Airsupra) 90-80 mcg/actuation inhaler Inhale by mouth. Active amLODIPine (NORVASC) 5 mg tablet Take 1 tablet (5 mg total) by mouth 1 (one) time each day. Active atorvastatin (LIPITOR) 20 mg tablet Take 1 tablet (20 mg total) by mouth 1 (one) time each day. Active azithromycin (ZITHROMAX) 250 mg tablet 08/11/2024 Active budesonide-formoteroL (SYMBICORT) 160-4.5 mcg/actuation inhaler Inhale 2 puffs by mouth. Active chlorhexidine (PERIDEX) 0.12 % solution 04/18/2024 Active cholecalciferol (VITAMIN D-3) 25 mcg (1,000 unit) tablet Take by mouth. A ctive gabapentin (NEURONTIN) 100 mg capsule Take 1 capsule (100 mg total) by mouth 1 (one) time each day. Active levoFLOXacin (LEVAQUIN) 750 mg tablet 08/20/2024 Active LORazepam (ATIVAN) 0.5 mg tablet Take 1 tablet (0.5 mg total) by mouth every 6 (six) hours if needed. Max Daily Amount: 2 mg Active losartan (COZAAR) 100 mg tablet Take 1 tablet (100 mg total) by mouth 1 (one) time each day. Active traMADoL (ULTRAM) 50 mg tablet 10/12/2023 Active meloxicam (MOBIC) 15 mg tablet 08/08/2024 Active valACYclovir (VALTREX) 500 mg tablet Take 1 tablet (500 mg total) by mouth. Active sulfamethoxazole-trime thoprim (BACTRIM DS,SEPTRA DS) 800-160 mg per tablet Take 1 tablet by mouth 2 (two) times a day. Active pantoprazole (PROTONIX) 40 mg EC tablet 09/25/2023 Active Hospital, Clinic, or Other Facility Administered Medication Ordered Dose Route Frequency Start Date End Date Status lidocaine (XYLOCAINE) 1 % injection 0.5 mLIndications:CMC arthritis,Wrist arthritis .5 mL inj Once PRN Procedure 09/10/2024 09/10/2024 Ended triamcinolone acetonide (KENALOG-40) 40 mg/mL injection 20 mgIndications:CMC arthritis,Wrist arthritis 20 mg IAtc Once PRN Procedure 09/10/2024 09/10/2024 Ended lidocaine (XYLOCAINE) 1 % injection 0.5 mLIndications:CMC arthritis,Wrist arthritis .5 mL inj Once PRN Procedure 09/10/2024 09/10/2024 Ended triamcinolone acetonide (KENALOG-40) 40 mg/mL injection 20 mgIndications:CMC arthritis,Wrist arthritis 20 mg IAtc Once PRN Procedure 09/10/2024 09/10/2024 Ended Encounters Date Type Department Care Team Description 10/02/2024 11:15 AM EST Office Visit Orthopedic Surgery - [address] [address] Deisi Whitt PA [facility] arthritis (Primary Dx); Wrist arthritis 09/25/2024 Lab Requisition [facility] - Main Lab [address] [facility] [employer] [place] [address] Glo Espinoza PA Personal history of malignant neoplasm of bladder 09/10/2024 11:45 AM EST Office Visit Orthopedic Surgery [address] [address] Deisi Whitt PA [facility] arthritis (Primary Dx); Wrist arthritis from Last 3 Months Surgical History Surgery Date Site/Laterality Comments HAND SURGERY PROCEDURE: HISTORICAL HAND SURGERY Medical History Medical History Date Comments Depression DX:Depression Elevated lipids DX:Elevated lipi ds Social History Tobacco Use Types Packs/Day Years Used Date Smoking Tobacco: Former Smokeless Tobacco: Never Alcohol Use Standard Drinks/Week Comments Yes 0.8 (1 standard drink = 0.6 oz p ure alcohol) Sex and Gender Information Value Date Recorded Sex Assigned at Not on file Gender Identity Not on file Sexual Orientation Not on file Job Start Date Occupation Industry Not on file Not on file Not on file Obstetrics History Last Filed Vital Signs Vital Sign Reading Time Taken Comments Blood Pressure - - Pulse - - Temperature - - Respiratory Rate - - Oxygen Saturation - - Inhaled Oxygen Concentration - - Weight 75.3 kg (166 lb) 01/08/2024 3:03 PM EDT Height 160 cm (5' 3 ) 01/08/2024 3:03 PM EDT Body Mass Index 29.41 01/08/2024 3:03 PM EDT Plan of Treatment Upcoming Encounters Date Type Department Care Team (Late st Contact Info) Description 12/29/2024 11:30 AM EDT Office Visit Orthopedic Surgery - [place] [address] [facility] [address] [place] [address] Deisi Whitt PA [address] [address] [place] [phone] Health Maintenance Due Date Last Done Comments DTaP,Tdap,and Td Vaccines (1 - Tdap) 02/08/1964 Zoster Vaccines (1 of 2) 02/08/1963 Depression Screening 08/05/2022 Falls Risk Assessment 08/05/2022 Medicare Annual Wellness Visit 08/05/2022 Osteoporosis Screening (Bone Density Screening) 08/05/2022 Social Influencers of Health Screening 08/05/2022 Cholesterol Screening (Lipid Panel) 09/18/2028 09/18/2023 Pneumococcal Vaccine: 65+ Years Completed 10/07/2018, 01/15/2017 RSV Immunization Patients 60+ Years Old Completed 07/14/2023 COVID-19 Vaccine Completed 05/27/2024, , 05/18/2022, Additional history exists Influenza Vaccine Completed 06/11/2024, , 06/07/2022, Additional history exists HIB Vaccines Aged Out No longer eligi ble based on patient's age to complete this topic HPV Vaccines Aged Out No longer eligi ble based on patient's age to complete this topic Hepatitis A Vaccines Aged Out No long er eligible based on patient's age to complete this topic Hepatitis B Vaccines Aged Out No long er eligible based on patient's age to complete this topic IPV Vaccines Aged Out No longer eligi ble based on patient's age to complete this topic MMR Vaccines Aged Out No longer eligi ble based on patient's age to complete this topic Meningococcal ACWY Vaccine Aged Out N o longer eligible based on patient's age to complete this topic RSV Immunization Patients Under 20 months Aged Out No longer eligible based on patient's age to complete this topic Varicella Vaccines Aged Out No longer eligible based on patient's age to complete this topic Procedures Procedure Name Priority Date/Time Associated Diagnosis Comments [place] ARTHROCENTESIS/ASPIRA TION/INJECTION INTERMEDIATE JOINT/BURSA WO U/S GUID Routine 09/10/2024 11:45 AM EST [facility] arthritis Wrist arthritis [place] ARTHROCENTESIS/ASPIRA TION/INJECTION SMALL JOINT/BURSA WO U/S GUIDANCE Routine 09/10/2024 11:45 AM EST [facility] arthritis Wrist arthritis from Last 3 Months Results * [place] ARTHROCENTESIS/ASPIRATION/INJECTION SMALL JOINT/BURSA WO U/S GUIDANCE (09/10/2024 11:45 AM EST) Narrative Deisi Whitt PA - 09/10/2024 11:45 AM EST SHAKA Gentile ? 09/10/2024 12:54 PM Hand / UE Inj/Asp: R thumb [facility] for osteoarthritis Indications: pain Details: 25 G needle, dorsal approach Medications: 0.5 mL lidocaine 1 %; 20 mg triamcinolone acetonide 40 mg/mL Informed Consent: ??Laterality: ??Right ??Relevant images/test results available and reviewed: yes ?Health status cleared: ??Yes ??Procedure/treatment, purpose, treatment alternatives, risks/potential complications and benefits explained: yes ?Risk/complications/benefits details: ??Risks of infection, thinning of the skin, skin discoloration discussed. ??Discussed the possibility of increased pain, mild redness and swelling at injection site. ??Discussed uncommon side effect of facial flushing after cortisone injection. ?? Patient may use ice, Tylenol or ibuprofen if they can take it. ??Benefits pain management ??Patient questions answered: yes ?Patient agrees, verbalizes understanding, and wants to proceed: yes ?Consent given by: ??Patient ??Informed consent discussion completed by Physician/MINDA with patient: ?? Verbal ??Pre-procedure timeout performed: yes ?? Deisi MATT IN CLINIC/BEDSIDE OR DERABLES * [place] ARTHROCENTESIS/ASPIRATION/INJECTION INTERMEDIATE JOINT/BURSA WO U/S GUID (09/10/2024 11:45 AM EST) Narrative Deisi Whitt PA - 09/10/2024 11:45 AM EST SHAKA Gentile ? 09/10/2024 12:54 PM M Inj/Asp: R radiocarpal Indications: pain Details: 25 G needle, dorsal approach Medications: 0.5 mL lidocaine 1 %; 20 mg triamcinolone acetonide 40 mg/mL Informed Consent: ??Laterality: ??Right ??Relevant images/test results available and reviewed: yes ?Health status cleared: ??Yes ??Procedure/treatment, purpose, treatment alternatives, risks/potential complications and benefits explained: yes ?Risk/complications/benefits details: ??Risks of infection, thinning of the skin and temporary skin discoloration discussed. ??Discussed risks of temporary increased pain after injection and swelling and mild redness at injection site for couple days. ??Explained occasionally cortisone injection can cause facial flushing temporarily. ??Benefits pain management. ??For postop injection pain ice, Tylenol and/or NSAIDs if patient can take ??Patient questions answered: yes ?Patient agrees, verbalizes understanding, and wants to proceed: yes ?Consent given by: ??Patient ??Informed consent discussion completed by Physician/MINDA with patient: ?? Verbal ??Pre-procedure timeout performed: yes ?? Deisi MATT IN CLINIC/BEDSIDE OR DERABLES from Last 3 Months Care Teams Optical Designer Relationship Specialty Start Date End Date Markos James MD [address] [place] [address] Dr [address] [facility] [place] [address] PCP - General 01/08/24
--- OUTSIDE RECORDS SUMMARY | 2024-10-09 08:26 | XMS_ITS | Encounter Summary ---
Author Organization [employer] Address [address] [facility] [address] [place] [address] Care Team Providers Care Mental Hygienist Name Role Phone Unavailable Primary Care Provider Unavailabl e Reason for Visit * Reason Onset Date Comments appt 08/13/2023 Encounter Details Date Type Department Care Team (Late st Contact Info) Description 08/13/2023 Telephone [facility] [address] [place] [address] Lala Phillips DDS [address] [place], [place] [phone] appt Social History Tobacco Use Types Packs/Day Years Used Date Smoking Tobacco: Never Assessed Comments Unknown Sex and Gender Information Value Date Recorded Sex Assigned at Female 07/03/2022 10:23 AM EDT Legal Sex Female 10:23 AM EDT Gender Identity Female 07/03/2022 10:23 AM EDT Sexual Orientation Straight 07/03/2022 10 :23 AM EDT documented as of this encounter Miscellaneous Notes * Telephone Encounter - Lala Phillips DDS - 08/15/2023 9:57 AM EST New cement its here. Please contact pt for new appt to cement it * Telephone Encounter - Mary Solorio - 08/13/2023 3:46 PM EST Patient came in June and has had issues with a bridge falling out. Patient states that there wasa bonding material that the office would be getting in where they could re-cement the bridge back in and she is looking to see if the material came in sot ath she can be scheduled. She did say that she has chemo on Sunday and that she is leaving on vacation next week so she is hoping to get in soonif she can be seen. Patient would like to get a call either way from someone in the office documented in this encounter Plan of Treatment Not on file documented as of this encounter Visit Diagnoses Not on filedocumented in this encounter
--- OUTSIDE RECORDS SUMMARY | 2024-10-09 08:26 | XMS_ITS | Encounter Summary ---
Author Organization [employer] Address [address] [facility] [address] [place] [address] Care Team Providers Care Pulp Beater Name Role Phone Unavailable Primary Care Provider Unavailabl e Encounter Details Date Type Department Care Team (Latest Contact Info) Description 01/14/2019 Abstract C CONVERSIONS Dental, Provider, DDS Social History Tobacco [...]
--- OUTSIDE RECORDS SUMMARY | 2024-10-09 08:26 | XMS_ITS | Encounter Summary ---
Author Organization [facility] Address [address] [place] [phone] Care Team Providers Care Cleaner Name Role Phone Markos James MD Primary Care Provider [phone] Encounter Details Date Type Department Care Team (Late Contact Info) Description 09/25/2024 Lab Requisition [facility] - Main Lab [address] [facility] [place] [phone] Glo Espinoza PA [address] [place] [address] Personal history of malignant neoplasm of bladder Social History Tobacco Use Types Packs/Day Years [...] file Not on file Not on file documented as of this encounter Plan of Treatment Upcoming Encounters Date Type Department Care Team (Late Contact Info) Description 12/29/2024 11:30 AM EDT Office Visit Orthopedic Surgery - [place] [address] [place] [phone] Deisi Whitt PA [address] [facility] [address] [place] [phone] Pending Results Name Type Priority Associated Diagnoses Date /Time Anatomic pathology outside consult Pathology and Cytology Routine Personal history of malignant neoplasm of bladder 09/19/2024 12:00 AM EST documented as of this encounter Visit Diagnoses Diagnosis Personal history of malignant neoplasm of bladder documented in this encounter Care Teams Cleaner Relationship Specialty Start Date End Date Markos James MD [address] [place] [address] Dr [address] [facility] [place] [address] PCP - General 01/08/24 documented as of this encounter
--- OUTSIDE RECORDS SUMMARY | 2024-10-09 08:26 | XMS_ITS | Encounter Summary ---
Author Organization [facility] Address [id number] [place] [phone] Care Team Providers Care Yard Supervisor Name Role Phone Markos James MD Primary Care Provider [phone] Reason for Referral * Orthopedic (Routine) - Authorized Specialty Diagnoses / Procedures Referred By Contac t Referred To Contact Orthopedic Surgery / Orthopaedic Surgery Diagnoses CMC arthritis Wrist arthritis Procedures M Inj/Asp: R radiocarpal Deisi Whitt PA [address] [place] [address] Referral ID Status Reason Start Date Expiration Date V isits Requested Visits Authorized [id number] Authorized 09/10/2024 09/10/2025 1 1 * Orthopedic (Routine) - Authorized Specialty Diagnoses / Procedures Referred By Contac t Referred To Contact Orthopedic Surgery / Orthopaedic Surgery Diagnoses CMC arthritis Wrist arthritis Procedures Hand / UE Inj/Asp: R thumb CMC Deisi Whitt PA [address] [place] [address] Referral ID Status Reason Start Date Expiration Date V isits Requested Visits Authorized [id number] Authorized 09/10/2024 09/10/2025 1 1 Reason for Visit * Reason Comments Pain Pain Encounter Details Date Type Department Care Team (Late st Contact Info) Description 09/10/2024 11:45 AM EST Office Visit Orthopedic Surgery - [place] [address] [place] [address] Deisi Whitt PA [address] [place] [address] CMC arthritis (Primary Dx); Wrist arthritis Social History Tobacco Use Types Packs/Day Years [...] on file documented as of this encounter Progress Notes * SHAKA Gentile - 09/10/2024 11:45 AM ESTAssociated Order(s): Hand / UE Inj/Asp: R thumb CMC; M Inj/Asp: R radiocarpal Post-Procedure Diagnose(s): Wrist arthritis; CMC arthritis CHIEF COMPLAINT: Pain of the Left Hand and Pain of the Right Hand had concerns including Pain of the Left Hand and Pain of the Right Hand. IDENTIFIER: Moni Cole is a 79 y.o. old female SUBJECTIVE: Moni Cole is here for follow up on 09/10/2024 mainly for right wrist and right thumb basal joint pain. Left hand is minimally symptomatic. I saw her in January 2020 for right radiocarpal and right CMC cortisone injection performed with very good relief for approximately 5 to 6 months. She is now having significantly increased right thumb pain over the wrist and basal joint. No numbness tingling. She does have compression gloves for the right hand. She does have multiple myeloma but is in remission since chemo and T-cell replacement. She recently got blood work which was stable. She had been on IVIG but per her last oncology visit she can stop this. PAST MEDICAL/SURGICAL HISTORY: There are no problems to display for this patient. Past Surgical History: Procedure Laterality Date HAND SURGERY PROCEDURE: HISTORICAL HAND SURGERY MEDICATIONS DISCONTINUED/REORDERED: There are no discontinued medications. ACTIVE MEDICATIONS: Outpatient Medications Marked as Taking for the 09/10/24 encounter (Office Visit) with SHAKA Gentile Medication Sig Dispense Refill azithromycin (ZITHROMAX) 250 mg tablet chlorhexidine (PERIDEX) 0.12 % solution levoFLOXacin (LEVAQUIN) 750 mg tablet meloxicam (MOBIC) 15 mg tablet pantoprazole (PROTONIX) 40 mg EC tablet traMADoL (ULTRAM) 50 mg tablet ALLERGIES: Allergies Allergen Reactions Doxycycline Oxycodone PHYSICAL EXAM: Visit Vitals Smoking Status Former APPEARANCE: Alert and in no acute distress EYES: conjunctivae and sclerae normal EXTREMITIES: Extremities warm and well perfused without clubbing, cyanosis, or edema Right wrist there is joint enlargement and swelling mildly over STT joint and radiocarpal joint. Slight prominence right thumb basal joint. Wrist extension 40 degrees with pain flexion 60. No midcarpal instability. Pain is localized to radiocarpal joint and right thumb basal joint. Mild pain with grind test but no crepitus. Right thumb FPL EPL intact. She make a full fist. Left hand she make a full fist. Full range of motion of the wrist. VASCULAR:well perfused with normal pulses in the distal extremities and no peripheral edema noted NEURO: Awake, alert and oriented SKIN: Skin color, texture, turgor normal. No rashes or lesions. PSYCH: does not appear depressed or anxious and oriented to time, place and person LABS/IMAGING: No results found for: HGBA1C Xrays reviewed: Exam Date: 01/08/2024 3:19 PM Ordering Diagnosis: Bilateral hand pain Date of Visit: 01/08/2024 Reason for visit: Bilateral hand pain Views: AP, lateral, oblique bilateral hands Comparison: None Findings: No fracture, dislocation or lytic lesions. Diffuse arthritic changes at the fingers and hands bilaterally. Periarticular osteopenia. Moderate bilateral thumb CMC and radiocarpal arthritis. On the right there is significant narrowing at the articulation of the capitate and lunate with sclerosis noted. Calcifications at TFCC on the right Impression: Diffuse arthritic changes bilateral hands Reading Physician: Signed by: Deisi Whitt, IMPRESSION: 1. CMC arthritis 2. Wrist arthritis PLAN: The details of the visit were reviewed with the patient. 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 Discussed with patient treatment options, bracing and intermittent cortisone injections. She has not had a cortisone injection over 6 months. Discussed repeat cortisone injection with 20 mg triamcinolone each to both the right wrist radiocarpal joint and right thumb basal joint as it worked very well before. She will call for an appointment when needed. Hand / UE Inj/Asp: R thumb CMC for osteoarthritis Indications: pain Details: 25 G needle, dorsal approach Medications: 0.5 mL lidocaine 1 %; 20 mg triamcinolone acetonide 40 mg/mL Informed Consent: Laterality: Right Relevant images/test results available and reviewed: yes Health status cleared: Yes Procedure/treatment, purpose, treatment alternatives, risks/potential complications and benefits explained: yes Risk/complications/benefits details: Risks of infection, thinning of the skin, skin discoloration discussed. Discussed the possibility of increased pain, mild redness and swelling at injection site. Discussed uncommon side effect of facial flushing after cortisone injection. Patient may use ice, Tylenol or ibuprofen if they can take it. Benefits pain management Patient questions answered: yes Patient agrees, verbalizes understanding, and wants to proceed: yes Consent given by: Patient Informed consent discussion completed by Physician/MINDA with patient: Verbal Pre-procedure timeout performed: yes M Inj/Asp: R radiocarpal Indications: pain Details: 25 G needle, dorsal approach Medications: 0.5 mL lidocaine 1 %; 20 mg triamcinolone acetonide 40 mg/mL Informed Consent: Laterality: Right Relevant images/test results available and reviewed: yes Health status cleared: Yes Procedure/treatment, purpose, treatment alternatives, risks/potential complications and benefits explained: yes Risk/complications/benefits details: Risks of infection, thinning of the skin and temporary skin discoloration discussed. Discussed risks of temporary increased pain after injection and swelling and mild redness at injection site for couple days. Explained occasionally cortisone injection can causefacial flushing temporarily. Benefits pain management. For postop injection pain ice, Tylenol and/or NSAIDs if patient can take Patient questions answered: yes Patient agrees, verbalizes understanding, and wants to proceed: yes Consent given by: Patient Informed consent discussion completed by Physician/MINDA with patient: Verbal Pre-procedure timeout performed: yes Moni Cole acknowledges understanding of the above plan and agrees to follow recommendations and/or take medications as prescribed. No orders of the defined types were placed in this encounter. @ELECSIG@ documented in this encounter Plan of Treatment Upcoming Encounters Date Type Department Care Team (Late st Contact Info) Description 12/29/2024 11:30 AM EDT Office Visit Orthopedic Surgery - [place] [address] [facility] [address] [place] [address] Deisi Whitt PA [address] [place] [address] documented as of this encounter Procedures Procedure Name Priority Date/Time Associated Diagnosis Comments AL ARTHROCENTESIS/ASPIRA TION/INJECTION SMALL JOINT/BURSA WO U/S GUIDANCE Routine 09/10/2024 11:45 AM EST CMC arthritis Wrist arthritis AL ARTHROCENTESIS/ASPIRA TION/INJECTION INTERMEDIATE JOINT/BURSA WO U/S GUID Routine 09/10/2024 11:45 AM EST CMC arthritis Wrist arthritis documented in this encounter Results * AL ARTHROCENTESIS/ASPIRATION/INJECTION INTERMEDIATE JOINT/BURSA WO U/S GUID (09/10/2024 [...] Deisi MATT IN CLINIC/BEDSIDE OR DERABLES * AL ARTHROCENTESIS/ASPIRATION/INJECTION SMALL JOINT/BURSA WO U/S GUIDANCE (09/10/2024 11:45 AM EST) Deisi Kumari PA - 09/10/2024 11:45 AM EST SHAKA [...] ?? Deisi MATT IN CLINIC/BEDSIDE OR DERABLES documented in this encounter Visit Diagnoses Diagnosis CMC arthritis- Primary Wrist arthritis Unspecified arthropathy, forearm documented in this encounter Administered Medications Inactive Administered Medications - up to 3 most recent administrations Medication Order MAR Action Action Date Dose Rate Site lidocaine (XYLOCAINE) 1 % injection 0.5 mL 0.5 mL, injection, Once PRN Procedure, Starting on Sun09/10/24 at 1145, For 1 dose Given 09/10/2024 11:45 AM EST 0.5 mL lidocaine (XYLOCAINE) 1 % injection 0.5 mL 0.5 mL, injection, Once PRN Procedure, Starting on Sun09/10/24 at 1145, For 1 dose Given 09/10/2024 11:45 AM EST 0.5 mL triamcinolone acetonide (KENALOG-40) 40 mg/mL injection 20 mg 20 mg, intra-articular, Once PRN Procedure, Starting on Sun09/10/24 at 1145, For 1 dose Given 09/10/2024 11:45 AM EST 20 mg triamcinolone acetonide (KENALOG-40) 40 mg/mL injection 20 mg 20 mg, intra-articular, Once PRN Procedure, Starting on Sun09/10/24 at 1145, For 1 dose Given 09/10/2024 11:45 AM EST 20 mg documented in this encounter Historical Medications * This list may reflect changes made after this encounter. Medication Sig Dispensed Refills Start Date End Date pantoprazole (PROTONIX) 40 mg EC tablet 09/25/2023 sulfamethoxazole-trimetho prim (BACTRIM DS,SEPTRA DS) 800-160 mg per tablet Take 1 tablet by mouth 2 (two) times a day. valACYclovir (VALTREX) 500 mg tablet Take 1 tablet (500 mg total) by mouth. meloxicam (MOBIC) 15 mg tablet 08/08/2024 traMADoL (ULTRAM) 50 mg tablet 10/12/2023 losartan (COZAAR) 100 mg tablet Take 1 tablet (100 mg total) by mouth 1 (one) time each day. LORazepam (ATIVAN) 0.5 mg tablet Take 1 tablet (0.5 mg total) by mouth every 6 (six) hours if needed. Max Daily Amount: 2 mg levoFLOXacin (LEVAQUIN) 750 mg tablet 08/20/2024 gabapentin (NEURONTIN) 100 mg capsule Take 1 capsule (100 mg total) by mouth 1 (one) time each day. cholecalciferol (VITAMIN D-3) 25 mcg (1,000 unit) tablet Take by mouth. chlorhexidine (PERIDEX) 0.12 % solution 04/18/2024 budesonide-formoteroL (SYMBICORT) 160-4.5 mcg/actuation inhaler Inhale 2 puffs by mouth. azithromycin (ZITHROMAX) 250 mg tablet 08/11/2024 atorvastatin (LIPITOR) 20 mg tablet Take 1 tablet (20 mg total) by mouth 1 (one) time each day. amLODIPine (NORVASC) 5 mg tablet Take 1 tablet (5 mg total) by mouth 1 (one) time each day. albuterol-budesonide (Airsupra) 90-80 mcg/actuation inhaler Inhale by mouth. added in this encounter Care Teams Yard Supervisor Relationship Specialty Start Date End Date Markos James MD [address] [place] [address] [address] [facility] [place] [address] PCP - General 01/08/24 documented as of this encounter
--- OUTSIDE RECORDS SUMMARY | 2024-10-09 08:26 | XMS_ITS | Clinical Summary ---
Author Organization [employer] Address [address] [facility] [address] [place] [address] Care Team Providers Care Crane Engineer Name Role Phone Unavailable Primary Care Provider Unavailabl e Allergies Active Allergy Reactions Criticality Noted Date Comments Cephalexin 12/04/2022 Doxycycline 12/04/2022 Hydromorphone Itching 04/17/2017 Oxycodone Itching 04/17/2017 and also mental status unwell itching, internally and externally Medications denosumab (Xgeva) 120 MG/1.7ML injection Inject 1.7 mL under the skin every 4 (four) weeks. Active amLODIPine (Norvasc) 5 MG tablet Take 5 mg by mouth Once per day. 1 Active atorvastatin (Lipitor) 20 MG tablet Take 20 mg by mouth Once per day. 4 Active budesonide-form oterol (Symbicort) 160-4.5 MCG/ACT inhaler Inhale 2 puffs every 12 (twelve) hours. Active LORazepam (Ativan) 0.5 MG tablet Take 0.5 mg by mouth if needed in the morning and at bedtime. Active meloxicam (Mobic) 15 MG tablet Take 15 mg by mouth. 5 Active sulfamethoxazol e-trimethoprim (Bactrim) 400-80 MG tablet Take 2 tablets by mouth every 12 (twelve) hours. Active Acetaminophen 500 MG capsule Take 500 mg by mouth every 6 (six) hours if needed. Active valACYclovir (Valtrex) 500 MG tablet Take by mouth. Activ e Multiple Vitamins-Minera ls (Oncovite) tablet Take 1 tablet by mouth Once per day. Active albuterol 108 (90 Base) MCG/ACT inhaler Inhale 2 puffs every 6 (six) hours if needed. Active diphenoxylate-a tropine (Lomotil) 2.5-0.025 MG tablet Take 1 tablet by mouth if needed in the morning, at noon, in the evening, and at bedtime for diarrhea. Active gabapentin (Neurontin) 100 MG capsule Take 100 mg by mouth at bedtime. Active butalbital-acet aminophen-caffe ine 50-325-40 MG tablet Take 1 tablet by mouth every 4 (four) hours if needed for headaches. Active desvenlafaxine (Pristiq) 50 MG 24 hr tablet Take 50 mg by mouth Once per day. Do not crush, chew, or split. Active cyanocobalamin (Vitamin B-12) 100 MCG tablet Take 100 mcg by mouth Once per day. Active chlorhexidine (Peridex) 0.12 % solution Swish 15 mL morning and night for 1 minute. Apply to infected area two times daily. Spit, do not swallow. Do not eat or drink for 30 minutes following use. 473 mL Active Social History Tobacco Use Types Packs/Day Years Used Date Smoking Tobacco: Never Tobacco Cessation:Counseling Given: Not Answered Alcohol Use Standard Drinks/Week Comments Defer 0 (1 standard drink = 0.6 oz pur e alcohol) Comments Unknown Sex and Gender Information Value Date Recorded Sex Assigned at Female 07/03/2022 10:23 AM EDT Legal Sex Female 10:23 AM EDT Gender Identity Female 07/03/2022 10:23 AM EDT Sexual Orientation Straight 07/03/2022 10 :23 AM EDT Last Filed Vital Signs Vital Sign Reading Time Taken Comments Blood Pressure 138/90 06/29/2023 11:23 AM EDT Pulse - - Temperature - - Respiratory Rate - - Oxygen Saturation - - Inhaled Oxygen Concentration - - Weight - - Height - - Body Mass Index - - Plan of Treatment Health Maintenance Due Date Last Done Comments Depression Screening 1945 SDOH Screening 1944 Alcohol/Substance Use Screening 1956 DTaP/Tdap/Td Vaccines (1 - Tdap) 02/08/1963 Zoster Vaccines (1 of 2) 02/08/1963 RSV Patients and Patients Aged 60 years or older (1 - 1-dose 75+ series) 02/08/2019 Dental Prophylaxis 01/17/2020 07/18/2019 Dental Oral Exam 04/05/2022 10/05/2021 COVID-19 Vaccine ( season) 2024 06/18/2023, 05/18/2022, 10/29/2021, Additional history exists Influenza Vaccine (#1) 2024 , 06/07/2022, 07/01/2021, Additional history exists Dental X-Ray: Bitewings 06/09/2024 06/08/2023, 10/05 Dental X-Ray: Full Mouth 10/06/2024 10/05/2021 Tobacco Screening 04/25/2025 04/25/2024 Pneumococcal Vaccine: 50+ Years Completed 10/07/2018, 01/15/2017 HIB Vaccines Aged Out No longer eligi [...] patient's age to complete this topic Meningococcal Vaccine Aged Out No gabriel bart eligible based on patient's age to complete this topic RSV under 20 months Aged Out No longe r eligible based on patient's age to complete this topic Rotavirus Vaccines Aged Out No longer eligible based on patient's age to complete this topic Procedures Procedure Name Priority Date/Time Associated Diagnosis Comments BITEWING - SINGLE RADIOGRAPHIC IMAGE Routine 06/08/2023 1:30 PM EDT from Last 3 Months or Most Recently Relevant to Health Maintenance Insurance DENTAL - [facility]
--- OUTSIDE RECORDS SUMMARY | 2024-10-09 08:27 | XMS_ITS | Encounter Summary ---
Author Organization [facility] Address [address] [place] [phone] Care Team Providers Care Pulmonologist/Intensivist Name Role Phone Markos James MD Primary Care Provider [phone] Reason for Visit * Reason Comments Pain Pain Encounter Details Date Type Department Care Team (Late st Contact Info) Description 10/02/2024 11:15 AM EST Office Visit Orthopedic Surgery - [place] [address] [facility] [address] [place] [phone] Deisi Whitt PA [address] [facility] [address] [place] [address] CMC arthritis (Primary Dx); Wrist arthritis Social [...] encounter Progress Notes * SHAKA Gentile - 10/02/2024 11:15 AM EST CHIEF COMPLAINT: Pain of the Left Hand and Pain of the Right Hand had concerns including Pain of the Left Hand and Pain of the Right Hand. IDENTIFIER: Moni Cole is a 79 y.o. old female SUBJECTIVE: Moni Cole is here for follow up 10/02/2024 for right wrist pain thumb and hand pain. Patient has known right wrist radiocarpal arthritis and right thumb basal joint arthritis. She had a cortisone injection to both areas January 2024 that helped significantly for 5 to 6 months. I saw her about 2 to3 weeks ago with increased pain over the same areas and injections performed to right wrist radiocarpal joint and right thumb basal joint. She states they helped some but she still having some pain and also couple days ago she was having some pain over the metacarpal phalangeal joints, volar aspectof her hands. That has settled down some. She will take meloxicam for pain. She is not having any nu mbness. She also sees a chiropractor that did some light manipulation of the right hand which did seem to help. Pain is settled down some no significant swelling. She does have multiple myeloma but is in remission since chemo and T-cell replacement. She recentlygot blood work which was stable. She had been on IVIG but has since been taken off of it by her oncologist . PAST MEDICAL/SURGICAL HISTORY: There are no problems to display for this patient. Past Surgical History: Procedure Laterality Date HAND SURGERY PROCEDURE: HISTORICAL HAND SURGERY MEDICATIONS DISCONTINUED/REORDERED: There are no discontinued medications. ACTIVE MEDICATIONS: Current Outpatient Medications on File Prior to Visit Medication Sig Dispense Refill albuterol-budesonide (Airsupra) 90-80 mcg/actuation inhaler Inhale by mouth. amLODIPine (NORVASC) 5 mg tablet Take 1 tablet (5 mg total) by mouth 1 (one) time each day. atorvastatin (LIPITOR) 20 mg tablet Take 1 tablet (20 mg total) by mouth 1 (one) time each day. azithromycin (ZITHROMAX) 250 mg tablet budesonide-formoteroL (SYMBICORT) 160-4.5 mcg/actuation inhaler Inhale 2 puffs by mouth. chlorhexidine (PERIDEX) 0.12 % solution cholecalciferol (VITAMIN D-3) 25 mcg (1,000 unit) tablet Take by mouth. gabapentin (NEURONTIN) 100 mg capsule Take 1 capsule (100 mg total) by mouth 1 (one) time each day. levoFLOXacin (LEVAQUIN) 750 mg tablet LORazepam (ATIVAN) 0.5 mg tablet Take 1 tablet (0.5 mg total) by mouth every 6 (six) hours if needed. Max Daily Amount: 2 mg losartan (COZAAR) 100 mg tablet Take 1 tablet (100 mg total) by mouth 1 (one) time each day. meloxicam (MOBIC) 15 mg tablet pantoprazole (PROTONIX) 40 mg EC tablet sulfamethoxazole-trimethoprim (BACTRIM DS,SEPTRA DS) 800-160 mg per tablet Take 1 tablet by mouth 2(two) times a day. traMADoL (ULTRAM) 50 mg tablet valACYclovir (VALTREX) 500 mg tablet Take 1 tablet (500 mg total) by mouth. No current facility-administered medications on file prior to visit. ALLERGIES: Allergies Allergen Reactions Doxycycline Oxycodone PHYSICAL EXAM: Visit Vitals Smoking Status Former APPEARANCE: Alert and in no acute distress EXTREMITIES: Extremities warm and well perfused without clubbing, cyanosis, or edema Right wrist no swelling, no deformity no skin abnormalities. Right thumb basal joint prominence andvery small bruise over the injection site. Right thumb FPL EPL intact. Negative grind test but mildpain to palpation over right thumb basal joint, mild pain to palpation over right radiocarpal jointbut no crepitus or instability. She can make a full fist. There is no triggering of the fingers. Mild tenderness over A1 israel of right ring finger. Hand is warm well-perfused. VASCULAR:well perfused with normal pulses in the distal extremities and no peripheral edema noted NEURO: Awake, alert and oriented SKIN: Skin color, texture, turgor normal. No rashes or lesions. PSYCH: does not appear depressed or anxious and oriented to time, place and person LABS/IMAGING: none Xrays reviewed: Exam Date: 01/08/2024 3:19 PM [...] findings were reviewed, along with the diagnoses: Right hand pain. Cortisone injections did help some but shestill having some intermittent pain at the thumb and wrist which is related to the arthritis. Thereis no signs of infection. I think the pain over the A1 pulleys couple days ago could have been a little flare of tendinitis or arthritis. Things have settled down some. I stated there is no further cortisone injections to be done at this time. Discussed continued exercises, heat bracing topical creams and anti- inflammatories. Did briefly discuss occupational therapy but going to hold off on this currently. She will follow-up in 3 to 4 months time for repeat cortisone injection if needed. Moni Cole acknowledges understanding of the above plan and agrees to follow recommendations and/or take medications as prescribed. No orders of the defined types were placed in this encounter. @ELECSIG@ documented in this encounter Plan of Treatment Upcoming Encounters Date Type Department Care Team ([facility] st Contact Info) Description 12/29/2024 11:30 AM EDT Office Visit Orthopedic Surgery - [place] [address] [facility] [address] [place] [address] Deisi Whitt PA [address] [facility] [address] [place] [phone] documented as of this encounter Visit Diagnoses Diagnosis CMC arthritis- Primary Wrist arthritis Unspecified arthropathy, forearm documented in this encounter Care Teams Pulmonologist/Intensivist Relationship Specialty Start Date End Date Markos James MD [address] [place] [address] [address] [facility] [place] [address] PCP - General 01/08/24 documented as of this encounter
--- NOTE | 2024-10-09 08:28 | A.OFFVIS_ITS ---
Vital Signs 10/09/24 08:30 Height 5 ft 3 in Weight 164 lb BMI 29.0 BP 138/50 L Blood Pressure Location Lt brachial Position Sitting Pulse 98 Intake Visit Reasons: follow up Intake Note: Patient 4 weeks follow up for Cholelithiasis, US results. Patient cc: abdominal pain after eating, swallowing problems, acid reflex/diarrhea on and off. Patient did not did her lab order from [facility]. Traveling Engineer Required: No Accompanied by: Self / Same As Patient Allergies oxycodone [From OXYCONTIN] Allergy (Mild, Verified 12/15/24 16:55) PRURITUS, severe itching adhesive tape Allergy (Unknown, Verified 12/15/24 16:55) BLISTERS cephalexin [Keflex] Allergy (Unknown, Verified 12/15/24 16:55) hives doxycycline [DOXYCYCLINE] Adverse Reaction (Intermediate, Verified 12/15/24 16:55) STOMACH PAINS Medication List - Last Reconciled 10/09/24 by Trena Dotson MD acetaminophen (Tylenol Extra Strength) 1,000 mg PO Q6H PRN albuterol sulfate 90 mcg/actuation (Ventolin HFA) 2 puffs inhalation Q4-6H PRN 30 days amlodipine 5 mg PO DAILY ascorbate calcium (vitamin C) 500 mg PO DAILY atorvastatin 20 mg PO DAILY qnqtylfbwj-jaewpvkturwsa-hyrc 50-325-40 mg 1 tab PO Q6H PRN cholecalciferol (vitamin D3) 50 mcg PO DAILY desvenlafaxine succinate ER 25 mg PO DAILY diphenoxylate-atropine 2.5-0.025 mg (Lomotil) 1 tab PO BEDTIME PRN gabapentin 100 mg PO TID 90 days lorazepam 0.5 mg PO BID PRN losartan 100 mg PO DAILY 90 days mecobalamin (vitamin B12) (B12 Active) 1,000 mcg PO DAILY meloxicam 15 mg PO DAILY metoprolol succinate ER 50 mg PO DAILY 90 days multivitamin 1 tab PO DAILY triamcinolone acetonide (Nasacort Allergy) 1 spray intranasal DAILY valacyclovir 500 mg PO DAILY HPI HPI follow up: Details: FU GI clinic visit for this 79-year-old female for FU of GERD and IBS. Patient has been followed by Dr. Bojorquez since 2014 for? nausea,? epigastric pain, heartburn, dysphagia and diarrhea She is followed by Dr Muniz in heme-onc for multiple myeloma. TODAYS VISIT: Patient 4 weeks follow up for Cholelithiasis, US results. Patient cc: abdominal pain after eating, swallowing problems, acid reflex/diarrhea on and off. No chemo for a year now Abd US results reviewed. Notes 5/10 epigastric pain after she eats - almost every day Pain is like pressure and lasts for a few minutes and resolves spontaneously Denies radiation of the pain to the back or shoulder. Pt notes occasional sweating and denies, nausea, vomiting, fever, chills Sometimes she takes Mylanta with relief of pain. Occasional dysphagia. Notes RUQ pain if she moves or twists - attributes to rib pain. Diarrhea is better - usually 2-3 BMs a day Sometimes has lower abd - relieved by BM PAST VISITS: She was sick the whole month of Aug and diagnosed with RSV. Some days she had diarrhea from morning till night. Prescribed amoxicillin and had constant diarrhea with incontinence Decreased appetite and has lost a few lbs. After she eats, she has upper abd pain intermittently (usually half an hour or later) - feels like pressure Sometimes she takes peptobismol or place ice or cold pack on it with relief - does not feel like an upset stomach Eyes are bad when stomach is bad - diagnosed with dry eyes. PAST VISITS: Continues to have dysphagia - usually with solid food. Tries to eat more slowly Has cut back on foods due to IBS Has 3 normal BMs a week - has diarrhea rest of the time with 3-4 BMs in a row. Has not had chemo since September. Trying to get rid of sciatica and has to use a walker and doing PT and Laser light PAST VISITS: CC: She is to start CAR T cell therapy on Sunday at [facility] in [place]. Her T cells will be removed and reinjected after 5 weeks to kill the cancer cells Had to cancel her vacation since she got influenza infection on the day she was to travel Complains of post prandial upper abdominal pain Trying to eat smaller portions more slowly Diarrhea with 3 to 8 BMs per day. Uses imodium, pepto-bismol and Lomotil Trying to drink a lot of liquids and electrolytes Has been having intermittent reddish orange/rust colored stool all week. Denies noticing any blood. Diarrhea has not been too bad this week - had a bout on 05/07/23 Three episodes on 05/10/23. Notes post prandial abdominal pain and bloating intermittently Complains of postprandial abdominal pain/pressure and unsure what to eat. Stomach does not feel good. Continues to have dysphagia and can have regurgitation of food into her throat (new problem) Intermittent heartburn and takes peptobismol or TUMS Continues to have loose stools - not always diarrhea Stopped writing down what she eats since she is unable to find a pattern. Takes 2 tab of immodium when she has increased diarrhea and takes another 2 tablets if she continues to have diarrhea. Takes Tramadol less than a few times a month and not daily. Decreased her treatment Velcade (Sunday treatment was stopped) due to hair loss. Has mets to the back and spine BMs are rarely formed - either mush or liquid, and sometimes orange in color and rarely diarrhea. Wt gain despite eating less - eats until she feels full. Does not eat big portions. Started taking a nutrition shake. Drinks a lot of water. Uses a heat pack on the stomach since it hurts. Notes urgency after she eats. Keeps a journal and is unable to find a pattern Sometimes she notes a little blood on the side of the stools Took some ice cream and had diarrhea after eating it Takes Lactose free milk Rarely has trouble going. PAST VISITS: Hospitalized in 03/2022 with COPD and pneumonia Notes intermittent cough usually in the am. On a steroid taper at present. Continues to have dysphagia with solids and large pills. Diarrhea is not too bad. Had an episode of gelatinous stool on 04/07/22 after she went home from the hospital Has 1 to 5 BMs a day. Takes Colestipol and 1 imodiun when she has diarrhea. Unable to identify precipitating foods. Avoids spicy foods Getting treatment for MM every 2 weeks followed by dexamethasone on Sun and . Seeing her Chiropractor for aches and pains - which is helping Stopped Creon since it was causing abdominal cramps. Notes diarrhea 2 -3 times a week - not related to treatment. Not taking colestipol due to concern for constipation. Intermittent rectal bleeding when she is constipated which she attributes to hemorrhoids. Takes Tramadol for body pains. Keeping a journal of diet and BMs Sometimes certain foods won't bother her and sometimes its a disaster Notes worsening dysphagia to liquids and solids - denies regurgitation with dysphagia episodes. Dysphagia is more often with liquids than solids. Denies coughing spells with dysphagia Broke her tooth and had nausea? due to enamel Starting to have a little problem with constipation (none since 2017) Still has intermittent diarrhea and is more manageable - taking imodium, Tums and colestipol Can have upto 7 BMs a day. Getting sinus DIEGO's. Kept a dairy of her BMs. Continues to have loose and liquid BMs. BMs are broken into lumps and bumps Eating less and gaining wt. Does not know what to eat since a lot of foods bother her Avoids salads and broccoli Stool studies were reviewed. Notes fat in the stool intermittently Continues to have intermittent diarrhea. On Revlimid (Lenalidomide)every 3 weeks - rest x 1 week - unsure if she has incrased diarrhea while on Revlimid. Can have lower abd pain, or pain can move up into the epigastrium. Has been noticing some gas over the past month. Biggest issue is her sleep since she has to get up to urinate. Her bowels do not interrupt her sleep. Can have 1-2 and upto 5 Bms a day - upto 7 times once. Concerned she may be loosing her nutrients. Takes Colestipol, imodium or peptobismol which works and diarrhea can come right back TUMS does not help. Diagnosed with Multiple Myeloma 5 yrs ago when she noted worsening fatigue. Takes Pantoprazole at night - advised by Dr Bojorquez. Takes imodium for the diarrhea. Sometimes takes peptobismol, meenakshi seltzer or TUMS for the diarrhea. She is taking colestipol once daily and takes a 2nd dose if diarrhea is bad [facility] Medical History Osteoarthritis of knees, bilateral Abnormal finding on MRI of brain Long-term current use of intravenous immunoglobulin (IVIG) Tinea pedis Urinary incontinence, urge Urinary frequency Urinary urgency TSH elevation Nasal congestion Hospital discharge follow-up Sepsis Pneumonia Acute exacerbation of chronic obstructive pulmonary disease Chronic cough Generalized anxiety disorder Right low back pain Hand pain Dysphagia, pharyngoesophageal phase Costochondritis Dyspnea on exertion COPD (chronic obstructive pulmonary disease) Chronic diarrhea Anxiety Cataract Bladder cancer GERD (gastroesophageal reflux disease) Asthma IBS (irritable bowel syndrome) Hypertension Multiple myeloma Surgical History History of oral surgery History of esophagogastroduodenoscopy (EGD) H/O colonoscopy History of eyelid surgery History of tonsillectomy H/O wrist surgery H/O eye surgery History of arthroscopy of both knees H/O rotator cuff surgery H/O cardiac catheterization Family History Father Pancreatic cancer Diabetes Stroke Mother No problems noted. Sister Diabetes Son No problems noted. Social History Household Members: Spouse Housing: Condominium Are you a primary childcare worker to a significant other at home: No Do you presently have visiting nurse or other home services: Yes ([facility]NA) Alcohol intake: never Patient Tobacco Use Status: Former Tobacco user Tobacco use type: Cigarette e-Cigarette/Vaping Use: Never Used Second Hand Smoke Exposure: No Advance Directives Date on File: 07/20/23 service: No Current occupational status: retired Cognitive needs: No Hearing needs: No Vision needs: Yes (Glasses) Review of Systems Const All systems reviewed & are unremarkable except as noted in HPI and below Physical Exam Vital Signs: Last Vital Signs Pulse 98 10/09/24 08:30 BP 138/50 L 10/09/24 08:30 BMI result Body Mass Index 29.0 Const General: no acute distress Nutritional Appearance: overweight Orientation/consciousness: patient oriented x3 HEENT Head: Yes normal to inspection Ears: hearing grossly normal bilaterally Eyes Sclerae: sclerae normal Pupils: Equal, round and reactive pupils present Neck Neck: Yes normal visual inspection Chest Chest palpation & inspection: normal inspection of the chest Resp Effort & Inspection: normal respiratory effort Auscultation: clear to auscultation bilaterally Cardio Palpation: normal PMI Rate: regular rate Rhythm: regular rhythm Heart sounds: S1 normal heart sound present, S2 normal heart sound present and no murmurs GI Palpation (GI): Soft to palpation, nontender and No hepatosplenomegaly present Auscultation: normal bowel sounds Rectal Exam - Female: deferred Skin General skin exam: no rashes or lesions noted Neuro General: patient oriented x3, gait normal and moves all extremities Cranial nerves: Yes Equal, round and reactive pupils present Psych Appearance: grossly normal Mental Status: mental status grossly normal Assessment & Plan Assessment & Plan (1) Chronic diarrhea: Code(s): K52.9 - Noninfective gastroenteritis and colitis, unspecified Category: Medical (2) Cholelithiasis: Code(s): K80.20 - Calculus of gallbladder without cholecystitis without obstruction Category: Medical (3) Postprandial epigastric pain: Code(s): R10.13 - Epigastric pain Category: Medical (4) Upper abdominal pain: Code(s): R10.10 - Upper abdominal pain, unspecified Category: Medical Plan 79 YF with hypertension, asthma, anxiety disorder and multiple myeloma followed in GI for GERD and chronic diarrhea of unclear etiology. Past evaluation with colonoscopy and random biopsies were normal, celiac serologies were negative, stool wbc and culture negative, C Diff was equivocal Stool fat?and pancreatic elastase was normal. Pt was taking Revlimid (Lenalidomide) every 3 weeks for? multiple myeloma which can be associated with diarrhea and 39-49% of patient, abdominal pain in 10-12%, nausea and 11-30% and decreased appetite in 14% of patients.? ? Patient discontinued Revlimid without change in diarrhea. She was started on daratumumab faspro on 07/05. She has so far been tolerating it very well. She had last couple of treatments while she was vacationing in [place], last year, (she received week 7 on 08/23 and week 8 8 on 08/[address] the [address] Schuyler Hicks, at [facility] in [place] Pamelist was added for MM on 02/14/22 Pt was advised to continue taking imodium or peptobismol prn for diarrhea. She was given a trail of pancreatic enzymes (although stool pancreatic elastase was normal) and stopped taking it since it was associated with abdominal cramps A barium swallow showed?moderate dysmotility without stricture or extrinsic mass lesion. No hiatal hernia or gastroesophageal reflux was noted. 05/09/23 Abd US showed cholelithiasis and fatty liver 05/01/[address] Muniz (Oncology): She has been referred for physical therapy to strengthen her legs. l advised gentle therapy. That is helping a lot. She will continue the Decadron taper. She will go down to 4 mg. I will follow up on the free light chain ratio, monthly to gauge her response. She will continue on the Denosumab, q 6 months. 09/21/23 She is to start BATRES T cell therapy on 09/21/23 at [facility] in [place]. Her T cells will be removed and re-injected after 5 weeks to kill the cancer cells Complains of post prandial upper abdominal pain Diarrhea with 3 to 8 BMs per day. Pt advised to increase pantoprazole to twice a day. She will be scheduled for an EGD after BATRES T cell therapy is complete 02/2024 EGD was performed and results as noted 03/13/24 Continues to have dysphagia - usually with solid food. Tries to eat more slowly Has cut back on foods due to IBS Has 3 normal BMs a week - has diarrhea rest of the time with 3-4 BMs in a row. 09/11/24 She was sick the whole month of Aug and diagnosed with RSV. Some days she had diarrhea from morning till night. Prescribed amoxicillin and had constant diarrhea with incontinence Patient was advised to schedule an abdominal ultrasound for evaluation of a bdominal pain. 10/09/24 No chemo for a year now Abd US results reviewed - showed hepatic steatosis and cholelithiasis without evidence of acute cholecystitis.. Notes 5/10 epigastric pain after she eats - almost every day Pt advised to take Pantoprazole (has some at home) x 2 weeks and continue if it is helpful Schedule a HIDA scan FU in 4 months Orders: Orders NM hepatobiliary w pharm 10/09/24 K80.20 - Calculus of gallbladder without cholecystitis without obstruction Coding Level of Care Code Est Pt Level 4 (55994) Diagnoses Chronic diarrhea K52.9 Cholelithiasis K80.20 Postprandial epigastric pain R10.13 Upper abdominal pain R10.10 Time Spent (min) 20
[2024-10-09 08:30] VITALS: BP 138/50; PULSE 98; BMI 29.0
== END 2024-10-09 09:17 | disposition home or self-care (01) ==
PROVIDERS: PCP Internal Medicine; Visit Provider Internal Medicine Gastroenterology
DX: K52.9 Noninfective gastroenteritis and colitis, unspecified (principal); K80.20 Calculus of gallbladder without cholecystitis without obstruction; R10.13 Epigastric pain; R10.10 Upper abdominal pain, unspecified
CPT/HCPCS: 99214

== ENCOUNTER → 2024-10-09 08:21 | Outpatient (BNVA) | payer MEDICARE, SELFPAY | PROVIDERS: PCP Internal Medicine; Visit Provider Internal Medicine Gastroenterology | DX: K52.9 Noninfective gastroenteritis and colitis, unspecified (principal); K80.20 Calculus of gallbladder without cholecystitis without obstruction; R10.13 Epigastric pain; R10.10 Upper abdominal pain, unspecified | CPT/HCPCS: 99212 ==

== ENCOUNTER 2024-10-24 08:44 | Outpatient (AMB) | payer MEDICARE, SELFPAY ==
--- NOTE | 2024-10-24 09:01 | MHC.OFFVIS ---
Vital Signs 10/24/24 09:08 Height 5 ft 3 in Weight 166 lb BMI 29.4 BP 123/57 L Blood Pressure Location Lt brachial Position Sitting Pulse 60 Pulse Oximetry (%) 97 Oxygen Delivery Method Room Air Oxygen Flow Rate 166 Intake Visit Reasons: Abdominal pain Intake Note: Patient follow up for abdominal pain Patient cc: RLQ abdominal pain, acid reflex with some burning sensation, some swallowing difficulty, denies ay other GI issues for today. Case Maker Required: No Accompanied by: Self / Same As Patient Allergies oxycodone [From OXYCONTIN] Allergy (Mild, Verified 10/24/24 09:04) PRURITUS, severe itching adhesive tape Allergy (Unknown, Verified 10/24/24 09:04) BLISTERS cephalexin [Keflex] Allergy (Unknown, Verified 10/24/24 09:04) hives doxycycline [DOXYCYCLINE] Adverse Reaction (Intermediate, Verified 10/24/24 09:04) STOMACH PAINS Medication List - Last Reconciled 10/24/24 by Trena Dotson MD acetaminophen (Tylenol Extra Strength) 1,000 mg PO Q6H PRN albuterol sulfate 90 mcg/actuation (Ventolin HFA) 2 puffs inhalation Q4-6H PRN 30 days amlodipine 5 mg PO DAILY ascorbate calcium (vitamin C) 500 mg PO DAILY atorvastatin 20 mg PO DAILY vujhagpbxt-uvgpccjkwkaul-nvsk 50-325-40 mg 1 tab PO Q6H PRN cholecalciferol (vitamin D3) 50 mcg PO DAILY desvenlafaxine succinate ER 25 mg PO DAILY diphenoxylate-atropine 2.5-0.025 mg (Lomotil) 1 tab PO BEDTIME PRN gabapentin 100 mg PO TID 90 days lorazepam 0.5 mg PO BID PRN losartan 100 mg PO DAILY 90 days mecobalamin (vitamin B12) (B12 Active) 1,000 mcg PO DAILY meloxicam 15 mg PO DAILY metoprolol succinate ER 50 mg PO DAILY 90 days multivitamin 1 tab PO DAILY triamcinolone acetonide (Nasacort Allergy) 1 spray intranasal DAILY valacyclovir 500 mg PO DAILY HPI HPI Abdominal pain: Details: FU GI clinic visit for this 79-year-old female for FU of GERD and IBS. Pt scheduled for an urgent visit for evaluation of RLQ pain She is followed by Dr Muniz in heme-onc for multiple myeloma. TODAYS VISIT: Patient cc: RLQ abdominal pain, acid reflex with some burning sensation, some swallowing difficulty Pain started on 10/15/24 - felt like a pressure and aching. Today no pain and feels sore on touching. Denies nausea, vomiting, change in appetite, fever or chills No change with moving and unsure if applying a heating pad helps. PAST VISIT: No pain today and notes pain when she pushes on it 10/22/24 Pt's sent the following message via pt's portal: My has been experiencing pain on the right side of her abdomen since about sunday ,Oct. While the pain is not extreme, it is causing her concern as it has not diminished. She very much wants to see you before the HIDA-scan, now scheduled for 03 November. On 10/23/24 @ 19:02 Trena Dotson Wrote To Trena Dotson (2) Pt complains of a constant pain in her right groin since Oct 15. Taking Pantoprazole for the past 2 weeks without any change in upper abdominal pain. Pain can be grabbing once in a while and usually 4-5/10 May not feel it if she is sitting and notes it when she gets up. Pt denies fever, chills or sweating. Has oral surgery on Sunday Patient 4 weeks follow up for Cholelithiasis, US results. Patient cc: abdominal pain after eating, swallowing problems, acid reflex/diarrhea on and off. No chemo for a year now Abd US results reviewed. Notes 5/10 epigastric pain after she eats - almost every day Pain is like pressure and lasts for a few minutes and resolves spontaneously Denies radiation of the pain to the back or shoulder. Pt notes occasional sweating and denies, nausea, vomiting, fever, chills Sometimes she takes Mylanta with relief of pain. Occasional dysphagia. Notes RUQ pain if she moves or twists - attributes to rib pain. Diarrhea is better - usually 2-3 BMs a day Sometimes has lower abd - relieved by BM PAST VISITS: She was sick the whole month of Aug and diagnosed with RSV. Some days she had diarrhea from morning till night. Prescribed amoxicillin and had constant diarrhea with incontinence Decreased appetite and has lost a few lbs. After she eats, she has upper abd pain intermittently (usually half an hour or later) - feels like pressure Sometimes she takes peptobismol or place ice or cold pack on it with relief - does not feel like an upset stomach Eyes are bad when stomach is bad - diagnosed with dry eyes. PAST VISITS: Continues to have dysphagia - usually with solid food. Tries to eat more slowly Has cut back on foods due to IBS Has 3 normal BMs a week - has diarrhea rest of the time with 3-4 BMs in a row. Has not had chemo since September. Trying to get rid of sciatica and has to use a walker and doing PT and Laser light PAST VISITS: CC: She is to start CAR T cell therapy on Sunday at [facility] in [place]. Her T cells will be removed and reinjected after 5 weeks to kill the cancer cells Had to cancel her vacation since she got influenza infection on the day she was to travel Complains of post prandial upper abdominal pain Trying to eat smaller portions more slowly Diarrhea with 3 to 8 BMs per day. Uses imodium, pepto-bismol and Lomotil Trying to drink a lot of liquids and electrolytes Has been having intermittent reddish orange/rust colored stool all week. Denies noticing any blood. Diarrhea has not been too bad this week - had a bout on 05/07/23 Three episodes on 05/10/23. Notes post prandial abdominal pain and bloating intermittently Complains of postprandial abdominal pain/pressure and unsure what to eat. Stomach does not feel good. Continues to have dysphagia and can have regurgitation of food into her throat (new problem) Intermittent heartburn and takes peptobismol or TUMS Continues to have loose stools - not always diarrhea Stopped writing down what she eats since she is unable to find a pattern. Takes 2 tab of immodium when she has increased diarrhea and takes another 2 tablets if she continues to have diarrhea. Takes Tramadol less than a few times a month and not daily. Decreased her treatment Velcade (Sunday treatment was stopped) due to hair loss. Has mets to the back and spine BMs are rarely formed - either mush or liquid, and sometimes orange in color and rarely diarrhea. Wt gain despite eating less - eats until she feels full. Does not eat big portions. Started taking a nutrition shake. Drinks a lot of water. Uses a heat pack on the stomach since it hurts. Notes urgency after she eats. Keeps a journal and is unable to find a pattern Sometimes she notes a little blood on the side of the stools Took some ice cream and had diarrhea after eating it Takes Lactose free milk Rarely has trouble going. PAST VISITS: Hospitalized in 03/2022 with COPD and pneumonia Notes intermittent cough usually in the am. On a steroid taper at present. Continues to have dysphagia with solids and large pills. Diarrhea is not too bad. Had an episode of gelatinous stool on 04/07/22 after she went home from the hospital Has 1 to 5 BMs a day. Takes Colestipol and 1 imodiun when she has diarrhea. Unable to identify precipitating foods. Avoids spicy foods Getting treatment for MM every 2 weeks followed by dexamethasone on Sun and . Seeing her Chiropractor for aches and pains - which is helping Stopped Creon since it was causing abdominal cramps. Notes diarrhea 2 -3 times a week - not related to treatment. Not taking colestipol due to concern for constipation. Intermittent rectal bleeding when she is constipated which she attributes to hemorrhoids. Takes Tramadol for body pains. Keeping a journal of diet and BMs Sometimes certain foods won't bother her and sometimes its a disaster Notes worsening dysphagia to liquids and solids - denies regurgitation with dysphagia episodes. Dysphagia is more often with liquids than solids. Denies coughing spells with dysphagia Broke her tooth and had nausea? due to enamel Starting to have a little problem with constipation (none since 2017) Still has intermittent diarrhea and is more manageable - taking imodium, Tums and colestipol Can have upto 7 BMs a day. Getting sinus DIEGO's. Kept a dairy of her BMs. Continues to have loose and liquid BMs. BMs are broken into lumps and bumps Eating less and gaining wt. Does not know what to eat since a lot of foods bother her Avoids salads and broccoli Stool studies were reviewed. Notes fat in the stool intermittently Continues to have intermittent diarrhea. On Revlimid (Lenalidomide)every 3 weeks - rest x 1 week - unsure if she has incrased diarrhea while on Revlimid. Can have lower abd pain, or pain can move up into the epigastrium. Has been noticing some gas over the past month. Biggest issue is her sleep since she has to get up to urinate. Her bowels do not interrupt her sleep. Can have 1-2 and upto 5 Bms a day - upto 7 times once. Concerned she may be loosing her nutrients. Takes Colestipol, imodium or peptobismol which works and diarrhea can come right back TUMS does not help. Diagnosed with Multiple Myeloma 5 yrs ago when she noted worsening fatigue. Takes Pantoprazole at night - advised by Dr Bojorquez. Takes imodium for the diarrhea. Sometimes takes peptobismol, meenakshi seltzer or TUMS for the diarrhea. She is taking colestipol once daily and takes a 2nd dose if diarrhea is bad [facility] Medical History (Updated 10/24/24 @ 09:37 by Trena Dotson MD) Osteoarthritis of knees, bilateral Abnormal finding on MRI of brain Long-term current use of intravenous immunoglobulin (IVIG) Tinea pedis Urinary incontinence, urge Urinary frequency Urinary urgency TSH elevation Nasal congestion Hospital discharge follow-up Sepsis Pneumonia Acute exacerbation of chronic obstructive pulmonary disease Chronic cough Generalized anxiety disorder Right low back pain Hand pain Dysphagia, pharyngoesophageal phase Costochondritis Dyspnea on exertion COPD (chronic obstructive pulmonary disease) Chronic diarrhea Anxiety Cataract Bladder cancer GERD (gastroesophageal reflux disease) Asthma IBS (irritable bowel syndrome) Hypertension Multiple myeloma Surgical History History of esophagogastroduodenoscopy (EGD) H/O colonoscopy History of eyelid surgery History of tonsillectomy H/O wrist surgery H/O eye surgery History of arthroscopy of both knees H/O rotator cuff surgery H/O cardiac catheterization Family History Father Pancreatic cancer Diabetes Stroke Mother No problems noted. Sister Diabetes Son No problems noted. Social History Household Members: Spouse Housing: Condominium Are you a primary hearing healthcare practitioner to a significant other at home: No Do you presently have visiting nurse or other home services: Yes ([facility]) Alcohol intake: never Patient Tobacco Use Status: Former Tobacco user Tobacco use type: Cigarette e-Cigarette/Vaping Use: Never Used Second Hand Smoke Exposure: No Advance Directives Date on File: 07/20/23 service: No Current occupational status: retired Cognitive needs: No Hearing needs: No Vision needs: Yes Review of Systems Const All systems reviewed & are unremarkable except as noted in HPI and below Physical Exam Const General: no acute distress Nutritional Appearance: overweight Orientation/consciousness: patient oriented x3 Limitations: no limitations HEENT Head: Yes normal to inspection Ears: hearing grossly normal bilaterally Eyes Sclerae: sclerae normal Pupils: Equal, round and reactive pupils present Neck Neck: Yes normal visual inspection Chest Chest palpation & inspection: normal inspection of the chest Resp Effort & Inspection: normal respiratory effort Auscultation: clear to auscultation bilaterally Cardio Palpation: normal PMI Rate: regular rate Rhythm: regular rhythm Heart sounds: S1 normal heart sound present, S2 normal heart sound present and no murmurs GI Palpation (GI): Soft to palpation, Tenderness to palpation present (GI) (Mild RLQ tenderness without rebound) and No hepatosplenomegaly present Auscultation: normal bowel sounds Rectal Exam - Female: deferred Skin General skin exam: no rashes or lesions noted Neuro General: patient oriented x3, gait normal and moves all extremities Cranial nerves: Yes Equal, round and reactive pupils present Psych Appearance: grossly normal Mental Status: mental status grossly normal Assessment & Plan Assessment & Plan (1) GERD (gastroesophageal reflux disease): Code(s): K21.9 - Gastro-esophageal reflux disease without esophagitis Category: Medical Qualifiers: Esophagitis presence: without esophagitis Qualified Code(s): K21.9 - Gastro-esophageal reflux disease without esophagitis (2) Chronic diarrhea: Code(s): K52.9 - Noninfective gastroenteritis and colitis, unspecified Category: Medical (3) Cholelithiasis: Code(s): K80.20 - Calculus of gallbladder without cholecystitis without obstruction Category: Medical (4) Postprandial epigastric pain: Code(s): R10.13 - Epigastric pain Category: Medical (5) RLQ abdominal tenderness: Code(s): R10.813 - Right lower quadrant abdominal tenderness Category: Medical (6) Upper abdominal pain: Code(s): R10.10 - Upper abdominal pain, unspecified Category: Medical Plan 79 YF with hypertension, asthma, anxiety disorder and multiple myeloma followed in GI for GERD and chronic diarrhea of unclear etiology. Past evaluation with colonoscopy and random biopsies were normal, celiac serologies were negative, stool wbc and culture negative, C Diff was equivocal Stool fat?and pancreatic elastase was normal. Pt was taking Revlimid (Lenalidomide) every 3 weeks for? multiple myeloma which can be associated with diarrhea and 39-49% of patient, abdominal pain in 10-12%, nausea and 11-30% and decreased appetite in 14% of patients.? ? Patient discontinued Revlimid without change in diarrhea. She was started on daratumumab faspro on 07/05. She has so far been tolerating it very well. She had last couple of treatments while she was vacationing in [place], last year, (she received week 7 on 08/23 and week 8 8 on 08/30 [address] the care [address] Schuyler Hicks, at [facility] in [place].) Pamelist was added for MM on 02/14/22 Pt was advised to continue taking imodium or peptobismol prn for diarrhea. She was given a trail of pancreatic enzymes (although stool pancreatic elastase was normal) and stopped taking it since it was associated with abdominal cramps A barium swallow showed?moderate dysmotility without stricture or extrinsic mass lesion. No hiatal hernia or gastroesophageal reflux was noted. 05/09/23 Abd US showed cholelithiasis and fatty liver 05/01/[address] Muniz (Oncology): She has been referred for physical therapy to strengthen her legs. l advised gentle therapy. That is helping a lot. She will continue the Decadron taper. She will go down to 4 mg. I will follow up on the free light chain ratio, monthly to gauge her response. She will continue on the Denosumab, q 6 months. 09/21/23 She is to start BATRES T cell therapy on 09/21/23 at [facility] in [place]. Her T cells will be removed and re-injected after 5 weeks to kill the cancer cells Complains of post prandial upper abdominal pain Diarrhea with 3 to 8 BMs per day. Pt advised to increase pantoprazole to twice a day. She will be scheduled for an EGD after BATRES T cell therapy is complete 02/2024 EGD was performed and results as noted 10/09/24 Pt advised to take Pantoprazole (has some at home) x 2 weeks and continue if it is helpful HIDA scan 10/24/[address] scan for evaluation of RUQ and RLQ pain FU in 2 month - has a FU appt on 02/05/25 Orders: Orders C Reactive Protein Today R10.813 - Right lower quadrant abdominal tenderness Complete Blood Count Auto Diff Today R10.813 - Right lower quadrant abdominal tenderness Lipase Today R10.813 - Right lower quadrant abdominal tenderness Creatinine Today R10.813 - Right lower quadrant abdominal tenderness Blood Urea Nitrogen Today R10.813 - Right lower quadrant abdominal tenderness CT abdomen pelvis w IV con Today R10.10 - Upper abdominal pain, unspecified, R10.813 - Right lower quadrant abdominal tenderness Liver Panel Today R10.813 - Right lower quadrant abdominal tenderness Coding Level of Care Code Est Pt Level 3 (12552) Diagnoses Gastroesophageal reflux disease without esophagitis K21.9 Esophagitis presence: without esophagitis Chronic diarrhea K52.9 Cholelithiasis K80.20 Postprandial epigastric pain R10.13 RLQ abdominal tenderness R10.813 Upper abdominal pain R10.10 Time Spent (min) 25
--- OUTSIDE RECORDS SUMMARY | 2024-10-24 09:01 | XMS_ITS | Encounter Summary ---
Author Organization [employer] Address [address] [facility] [address] [place] [address] Care Team Providers Care Video Tape Duplicator Name Role Phone Unavailable Primary Care Provider [...]
--- OUTSIDE RECORDS SUMMARY | 2024-10-24 09:01 | XMS_ITS | Encounter Summary ---
Author Organization [employer] Address [address] [facility] 7t [place] [address] Care Team Providers Care Nursing Administrator Name Role Phone Unavailable Primary Care Provider [...]
--- OUTSIDE RECORDS SUMMARY | 2024-10-24 09:01 | XMS_ITS | Encounter Summary ---
Author Organization [facility] Address [id number] [place] [phone] Care Team Providers Care Veterinary Bacteriologist Name Role Phone Markos James MD Primary Care Provider Reason for Visit * Reason Comments Pain Pain Encounter Details Date Type Department Care Team (Late st Contact Info) Description 10/02/2024 11:15 AM EST Office Visit Orthopedic Surgery - [place] [address] [place] [phone] Deisi Whitt PA [address] [place] [address] CMC arthritis (Primary Dx); Wrist arthritis Social History Tobacco Use Types Packs/Day Years Used Date Smoking Tobacco: Former Smokeless Tobacco: Never Alcohol Use Standard Drinks/Week Comments Yes 0.8 (1 standard drink = 0.6 oz p ure alcohol) Comments Unknown Sex and Gender Information Value Date Recorded Sex Assigned at Not on file Legal Sex Female 6:04 PM EST Gender Identity Not on file Sexual Orientation [...] Upcoming Encounters Date Type Department Care Team ([facility] st Contact Info) Description 12/29/2024 11:30 AM EDT Office Visit Orthopedic Surgery - [place] [address] [facility] [address] [place] [address] Deisi Whitt PA [address] [facility] [address] [place] [phone] documented as of this encounter Visit Diagnoses Diagnosis CMC arthritis- Primary Wrist arthritis Unspecified arthropathy, forearm documented in this encounter Care Teams Veterinary Bacteriologist Relationship Specialty Start Date End Date Markos James MD [address] [place] [address] [address] [facility] [place] [address] PCP - General 01/08/24 documented as of this encounter
--- OUTSIDE RECORDS SUMMARY | 2024-10-24 09:01 | XMS_ITS | Clinical Summary ---
Author Organization [address] [facility] Address [address] [place] [address] Phone Care Team Providers Care Results Engineer Name Role Phone Markos James MD Primary Care Provider [phone] Allergies Active Allergy Reactions Criticality Noted Date Comments Doxycycline 01/08/2024 Oxycodone 01/08/2024 Medications albuterol-budes onide (Airsupra) 90-80 mcg/actuation inhaler Inhale by mouth. Active amLODIPine (NORVASC) 5 mg tablet Take 1 tablet (5 mg total) by mouth 1 (one) time each day. Active atorvastatin (LIPITOR) 20 mg tablet Take 1 tablet (20 mg total) by mouth 1 (one) time each day. Active azithromycin (ZITHROMAX) 250 mg tablet 08/11/2024 Active budesonide-form oteroL (SYMBICORT) 160-4.5 mcg/actuation inhaler Inhale 2 puffs by mouth. Active chlorhexidine (PERIDEX) 0.12 % solution 04/18/2024 Active cholecalciferol (VITAMIN D-3) 25 mcg (1,000 unit) tablet Take by mouth. Active gabapentin (NEURONTIN) 100 mg capsule Take 1 [...] tablet (500 mg total) by mouth. Active sulfamethoxazol e-trimethoprim (BACTRIM DS,SEPTRA DS) 800-160 mg per tablet Take 1 tablet by mouth 2 (two) times a day. Active pantoprazole (PROTONIX) 40 mg EC tablet 09/25/2023 Active Encounters Date Type Department Care Team Description 10/02/2024 11:15 AM EST Office Visit Orthopedic Surgery [facility] [address] [facility] [address] [place] [address] Deisi Whitt PA CMC arthritis (Primary Dx); Wrist arthritis 09/25/2024 Lab Requisition [facility] - Main Lab [address] [facility] [place] [address] Glo Espinoza PA Personal history of malignant neoplasm of bladder 09/10/2024 11:45 AM EST Office Visit Orthopedic Surgery [address] [place] [phone] Deisi Whitt PA CMC arthritis (Primary Dx); [...] on file Sexual Orientation Not on file Obstetrics History Last Filed [...] AM EDT Office Visit Orthopedic Surgery - [place] [address] [facility] [address] [place] [address] Deisi Whitt PA [address] [facility] [address] [place] [address] Health Maintenance Due Date Last Done Comments DTaP,Tdap,and Td Vaccines (1 - Tdap) 02/08/1964 Zoster Vaccines (1 of 2) 02/08/1963 Depression Screening 08/05/2022 Falls Risk Assessment 08/05/2022 Medicare Annual Wellness Visit 08/05/2022 Osteoporosis Screening (Bone Density Screening) 08/05/2022 Social Influencers of Health Screening 08/05/2022 Cholesterol Screening (Lipid Panel) 09/18/2028 09/18/2023 Pneumococcal Vaccine: 50+ Years Completed 10/07/2018, 01/15/2017 RSV Immunization Patients [...] patient's age to complete this topic Meningococcal B Vacine Aged Out No lo nger eligible based on patient's age to complete this topic RSV Immunization Patients Under 20 months Aged Out No longer eligible based on patient's age to complete this topic Varicella Vaccines Aged Out No longer eligible based on patient's age to complete this topic Procedures Procedure Name Priority Date/Time Associated Diagnosis Comments AP OUTSIDE CONSULT Routine 09/19/2024 12 :00 AM EST Personal history of malignant neoplasm of bladder CO ARTHROCENTESIS/ASPIRA TION/INJECTION INTERMEDIATE JOINT/BURSA WO U/S GUID Routine 09/10/2024 11:45 AM EST CMC arthritis Wrist arthritis CO ARTHROCENTESIS/ASPIRA TION/INJECTION SMALL JOINT/BURSA WO U/S GUIDANCE Routine 09/10/2024 11:45 AM EST CMC arthritis Wrist arthritis from Last 3 Months Results * Anatomic pathology outside consult (09/19/2024 12:00 AM EST) Final Diagnosis A. Urine, Voided, ([id number]): Negative for high grade urothelial carcinoma. Results of UroVysion fluorescence in situ hybridization (FISH) testing: CEP3: Normal CEP7: Normal CEP17: Normal LSI 9p21: Normal Interpretation: Normal profile Controls stained appropriately. Note: The results are intended as a screening device and should be interpreted in association with other clinical and pathological findings. 10/09/2024 11:50 AM [facility] Clinical Information History of bladder neoplasm (malignant) Z85.51 Urine Cytology/FISH (now) 10/09/2024 11:50 AM [facility] Gross Description A. Urine, Voided, ([id number]): Received one ThinPrep slide for cytology screen and one ThinPrep slide for UroVysion FISH 10/09/2024 11:50 AM [facility] Disclaimer Unless otherwise specified, all tissue is 10% NB formalin fixed and paraffin embedded. Technical pathology services provided by [facility] [address] [place] [address] (CLIA #[id number]/Nara Deal MD, Call Or Contact Centre Team Leader) 10/09/2024 11:50 AM [facility] Tissue Urine specimen from urethra / Unknown 09/19/2024 09/25/2024 8:14 AM EST Glo MATT LAB PATHOLOGY ORDERABLES Final Result [facility] [address] [place] [address], * CO ARTHROCENTESIS/ASPIRATION/INJECTION SMALL JOINT/BURSA WO U/S GUIDANCE (09/10/2024 [...] performed: yes ?? Deisi MATT IN CLINIC/BEDSIDE ORDERABLES Final Result * CO ARTHROCENTESIS/ASPIRATION/INJECTION INTERMEDIATE JOINT/BURSA WO U/S GUID (09/10/2024 [...] ?? Verbal ??Pre-procedure timeout performed: yes ?? us Deisi MATT IN CLINIC/BEDSIDE ORDERABLES Final Result from Last 3 Months Insurance BLUE CROSS - [place] MEDICARE ADVANTAGE MEDICARE Care Teams Results Engineer Relationship Specialty Start Date End Date Markos James MD [address] [place] [address] [address] [facility] [place] [address] PCP - General 01/08/24
--- OUTSIDE RECORDS SUMMARY | 2024-10-24 09:01 | XMS_ITS | Encounter Summary ---
Author Organization [employer] Address [address] [facility] 7[address] [place] [address] Care Team Providers Care Dog Day Care Attendant Name Role Phone Unavailable Primary Care Provider Unavailabl e Reason for Visit * Reason Onset Date Comments appt 08/13/2023 Encounter Details Date Type Department Care Team (Late st Contact Info) Description 08/13/2023 Telephone [facility] [address] [place] [address] Lala Phillips DDS [address] [place], [place] [phone] appt Social History Tobacco Use Types Packs/Day [...]
--- OUTSIDE RECORDS SUMMARY | 2024-10-24 09:01 | XMS_ITS | Encounter Summary ---
Author Organization [facility] Address [address] [place] [id number] Care Team Providers Care Public Welfare Director Name Role Phone Markos James MD Primary Care Provider [phone] Encounter Details Date Type Department Care Team (Late st Contact Info) Description 09/25/2024 Lab Requisition [facility] - Main Lab [address] [place] [address] Glo Espinoza PA [address] [place], [place] [id number] Personal history of malignant neoplasm of bladder [...] AM EDT Office Visit Orthopedic Surgery - [place] [address] [place] [phone] Deisi Whitt PA [address] [facility] [address] [place] [phone] documented as of this encounter Procedures Procedure Name Priority Date/Time Associated Diagnosis Comments AP OUTSIDE CONSULT Routine 09/19/2024 12 :00 AM EST Personal history of malignant neoplasm of bladder documented in this encounter Results * Anatomic pathology outside consult (09/19/2024 12:00 AM EST) Final Diagnosis A. Urine, Voided, ([id number]): Negative for high grade urothelial carcinoma. Results of UroVysion fluorescence in situ hybridization (FISH) testing: CEP3: Normal CEP7: Normal CEP17: Normal LSI 9p21: Normal Interpretation: Normal profile Controls stained appropriately. Note: The results are intended as a screening device and should be interpreted in association with other clinical and pathological findings. 10/09/2024 11:50 AM [facility] Clinical Information History of bladder neoplasm (malignant) Z85.51 Urine Cytology/FISH (now) 10/09/2024 11:50 AM [facility] Gross Description A. Urine, Voided, ([id number]): Received one ThinPrep slide for cytology screen and one ThinPrep slide for UroVysion FISH 10/09/2024 11:50 AM [facility] Disclaimer Unless otherwise specified, all tissue is 10% NB formalin fixed and paraffin embedded. Technical pathology services provided by [facility] at [address], [place] [address] (CLIA #[id number]/Nara Deal MD, Bit Sharpener) 10/09/2024 11:50 AM [facility] Tissue Urine specimen from urethra / Unknown 09/19/2024 09/25/2024 8:14 AM EST us Gl[facility] PATHOLOGY ORDERABLES Final Result [facility] [address] [place] [address], documented in this encounter Visit Diagnoses Diagnosis Personal history of malignant neoplasm of bladder documented in this encounter Care Teams Public Welfare Director Relationship Specialty Start Date End Date Markos James MD [address] [place] [address] [address] [facility] [place] [address] PCP - General 01/08/24 documented as of this encounter
--- OUTSIDE RECORDS SUMMARY | 2024-10-24 09:01 | XMS_ITS | Clinical Summary ---
Author Organization [employer] Address [address] [facility] [address] [place] [address] Care Team Providers Care Vice President Digital Strategist Name Role Phone Unavailable Primary Care Provider [...]
[2024-10-24 09:08] VITALS: BP 123/57; PULSE 60; O2SAT 97; BMI 29.4
== END 2024-10-24 09:46 | disposition home or self-care (01) ==
PROVIDERS: PCP Internal Medicine; Visit Provider Internal Medicine Gastroenterology
DX: K21.9 Gastro-esophageal reflux disease without esophagitis (principal); K52.9 Noninfective gastroenteritis and colitis, unspecified; K80.20 Calculus of gallbladder without cholecystitis without obstruction; R10.13 Epigastric pain; R10.813 Right lower quadrant abdominal tenderness; R10.10 Upper abdominal pain, unspecified
CPT/HCPCS: 99213

== ENCOUNTER → 2024-10-24 08:44 | Outpatient (BNVA) | payer MEDICARE, SELFPAY | PROVIDERS: PCP Internal Medicine; Visit Provider Internal Medicine Gastroenterology | DX: K21.9 Gastro-esophageal reflux disease without esophagitis (principal); K52.9 Noninfective gastroenteritis and colitis, unspecified; K80.20 Calculus of gallbladder without cholecystitis without obstruction; R10.13 Epigastric pain; R10.813 Right lower quadrant abdominal tenderness; R10.10 Upper abdominal pain, unspecified | CPT/HCPCS: 99212 ==

== ENCOUNTER 2024-10-30 10:26 | Outpatient (REF) | payer MEDICARE, SELFPAY ==
[2024-10-30 11:51] LABS: MANUAL DIFF FLAG NO
[2024-10-30 12:26] LABS: Basophils Percent Auto 0.5 % (0-2); Eosinophils Percent Auto 0.6 % (0-4); Hematocrit 36.1 % (37.0-47.0); Hemoglobin 12.2 g/dl (12.0-16.0); Imm Gran Abs Auto 0.03 X10*3/uL (0.00-0.03); Imm Gran Pct Auto 0.5 % (0.0-0.4); Lymphocytes Absolute Auto 0.3 X10*3/uL (1.2-4.9); Lymphocytes Percent Auto 4.3 % (20-40); Mean Corpuscular HGB Conc 33.8 g/dl (31.0-35.0); Mean Corpuscular Hemoglobin 29.3 pg (27.0-33.0); Mean Corpuscular Volume 86.6 fL (80.0-98.0); Monocytes Absolute Auto 0.8 X10*3/uL (0.1-1.2); Monocytes Percent Auto 12.5 % (2-11); Neutrophils Absolute Auto 5.1 x10*3/uL (2.0-8.3); Neutrophils Percent Auto 81.6 % (45-73); Platelet Count 102 X10*3/uL (160-400); Red Blood Count 4.17 X10*6/uL (4.20-5.50); Red Cell Distribution Width 14.6 % (11.0-16.0); White Blood Count 6.3 X10*3/uL (4.8-10.8)
[2024-10-30 13:06] LABS: Influenza A PCR NEGATIVE (Negative); Influenza B PCR NEGATIVE (Negative); Resp Syncy Virus RNA Qual PCR NEGATIVE (Negative); SARS COV2 PCR INHOUSE NEGATIVE (Negative)
[2024-10-30 13:06] LABS: Alanine Aminotransferase 23 U/L (0-31); Albumin Level 4.4 g/dL (3.5-5.0); Alkaline Phosphatase 93 U/L (39-117); Aspartate Amino Transferase 33 U/L (5-31); Bilirubin Direct 0.2 mg/dL (0.0-0.5); Bilirubin Total 0.8 mg/dL (0.0-1.0); Blood Urea Nitrogen 19 mg/dL (9-16); C Reactive Protein 1.58 mg/dL (< or = 0.50); Estimated Glomerular Filt Rate > 60; Lipase 14 U/L (8-78); Total Protein 7.3 g/dL (6.5-8.0)
--- OUTSIDE RECORDS SUMMARY | 2024-10-30 13:56 | XMS_ITS | Encounter Summary ---
Author Organization [employer] Address [address] [facility] 7t [place] [address] Care Team Providers Care Condominium Manager Name Role Phone Unavailable Primary Care Provider Unavailabl e Reason for Visit * Reason Onset Date Comments appt 08/13/2023 Encounter Details Date Type Department Care Team (Late st Contact Info) Description 08/13/2023 Telephone [facility] [address] [place] [address] Lala Phillips DDS [address] [place], [place] [phone] appt Social History Tobacco Use Types Packs/Day [...]
--- OUTSIDE RECORDS SUMMARY | 2024-10-30 13:56 | XMS_ITS | Encounter Summary ---
Author Organization [employer] Address [address] [facility] 7t [place] [address] Care Team Providers Care Squadron Worker Name Role Phone Unavailable Primary Care Provider [...]
--- OUTSIDE RECORDS SUMMARY | 2024-10-30 13:56 | XMS_ITS | Clinical Summary ---
Author Organization 175 [facility] Address 175 [place] [address] Phone Care Team Providers Care Open Shank Coverer Name Role Phone Markos James MD Primary Care Provider [phone] Allergies Active Allergy Reactions Criticality Noted Date [...] 11:15 AM EST Office Visit Orthopedic Surgery [facility] 175 [facility] 140 [place] [address] Deisi Whitt PA CMC arthritis (Primary Dx); Wrist arthritis 09/25/2024 Lab Requisition [facility] - Main Lab 299 [facility] [place] [address] Glo Espinoza PA Personal history of malignant neoplasm of bladder 09/10/2024 11:45 AM EST Office Visit Orthopedic Surgery [address] 140 [place] [phone] Deisi Whitt PA CMC arthritis (Primary Dx); [...] AM EDT Office Visit Orthopedic Surgery - [place] 175 [facility] [address] [place] [address] Deisi Whitt PA 174 [facility] [address] [place] [address] Health Maintenance Due Date Last [...] Personal history of malignant neoplasm of bladder ID ARTHROCENTESIS/ASPIRA TION/INJECTION INTERMEDIATE JOINT/BURSA WO U/S GUID Routine 09/10/2024 11:45 AM EST CMC arthritis Wrist arthritis ID ARTHROCENTESIS/ASPIRA TION/INJECTION SMALL JOINT/BURSA WO U/S GUIDANCE Routine 09/10/2024 11:45 AM EST CMC arthritis Wrist arthritis from Last 3 Months Results * Anatomic pathology outside consult (09/19/2024 12:00 AM EST) Final Diagnosis A. Urine, Voided, ([id number]): Negative for high grade urothelial carcinoma. Results of UroVysion fluorescence in situ hybridization (FISH) testing: CEP3: Normal CEP7: Normal CEP17: Normal LSI 9p21: Normal Interpretation: Normal profile Controls stained appropriately. Note: The results are intended as a screening device and should be interpreted in association with other clinical and pathological findings. 10/09/2024 11:50 AM [facility] Clinical Information History of bladder neoplasm (malignant) Z85.51 Urine Cytology/FISH (now) 10/09/2024 11:50 AM [facility] Gross Description A. Urine, Voided, ([id number]): Received one ThinPrep slide for cytology screen and one ThinPrep slide for UroVysion FISH 10/09/2024 11:50 AM [facility] Disclaimer Unless otherwise specified, all tissue is 10% NB formalin fixed and paraffin embedded. Technical pathology services provided by [facility] at [facility] [address] [place] [address] (CLIA #[id number]/Nara Deal MD, Information Management Manager) 10/09/2024 11:50 AM [facility] Tissue Urine specimen from urethra / Unknown 09/19/2024 09/25/2024 8:14 AM EST Glo MATT LAB PATHOLOGY ORDERABLES Final Result [facility] [address] [place] [address], * ID ARTHROCENTESIS/ASPIRATION/INJECTION SMALL JOINT/BURSA WO U/S GUIDANCE (09/10/2024 [...] MATT IN CLINIC/BEDSIDE ORDERABLES Final Result * ID ARTHROCENTESIS/ASPIRATION/INJECTION INTERMEDIATE JOINT/BURSA WO U/S GUID (09/10/2024 [...] - [place] MED[place]ARE [place] MEDICARE Care Teams Open Shank Coverer Relationship Specialty Start Date End Date Markos James MD [address] [place] [address] [address]ie [address] [facility] [place] [address] PCP - General 01/08/24
--- OUTSIDE RECORDS SUMMARY | 2024-10-30 13:56 | XMS_ITS | Encounter Summary ---
Author Organization [facility] Address [address] [place] [address] Care Team Providers Care Rn Clinical Coordinator Name Role Phone Markos James MD Primary Care Provider [phone] Reason for Visit * Reason Comments Pain Pain Encounter Details Date Type Department Care Team (Late st Contact Info) Description 10/02/2024 11:15 AM EST Office Visit Orthopedic Surgery - [place] [address] [facility] [address] [place] [phone] Deisi Whitt PA [address] [facility] [address] [place] [address] CMC arthritis (Primary Dx); Wrist [...] Upcoming Encounters Date Type Department Care Team ([facility] st Contact Info) Description 12/29/2024 11:30 AM EDT Office Visit Orthopedic Surgery - [place] 175 [facility] 140 [place] [address] Deisi Whitt PA 174 [facility] 140 [place] [phone] documented as of this encounter Visit Diagnoses Diagnosis CMC arthritis- Primary Wrist arthritis Unspecified arthropathy, forearm documented in this encounter Care Teams Rn Clinical Coordinator Relationship Specialty Start Date End Date Markos James MD [address] [place] [address] [address] [facility] [place] [address] PCP - General 01/08/24 documented as of this encounter
--- OUTSIDE RECORDS SUMMARY | 2024-10-30 13:56 | XMS_ITS | Encounter Summary ---
Author Organization [facility] Address [address] [place] [address] Care Team Providers Care [facility] Name Role Phone Markos James MD Primary Care Provider [phone] Encounter Details Date Type Department Care Team (Late st Contact Info) Description 09/25/2024 Lab Requisition [facility] - Main Lab 299 [facility] [place] [address] Glo Espinoza PA [address] [place], [place] [phone] Personal history of malignant neoplasm of bladder [...] AM EDT Office Visit Orthopedic Surgery - [place] [address] [facility] [address] [place] [phone] Deisi Whitt PA 174 [facility] [address] [place] [phone] documented as of this encounter Procedures Procedure Name Priority Date/Time Associated Diagnosis Comments AP OUTSIDE CONSULT Routine 09/19/2024 12 :00 AM EST Personal history of malignant neoplasm of bladder documented in this encounter Results * Anatomic pathology outside consult (09/19/2024 12:00 AM EST) Final Diagnosis A. Urine, Voided, ([id number]): Negative for high grade urothelial carcinoma. Results [...] CENTER LAB Gross Description A. Urine, Voided, ([id number]): Received one ThinPrep slide for cytology screen and one ThinPrep slide for UroVysion FISH 10/09/2024 11:50 AM [facility] Disclaimer Unless otherwise specified, all tissue is 10% NB formalin fixed and paraffin embedded. Technical pathology services provided by [facility] Urology at [address] [facility] [address], [place] [address] (CLIA #[id number]/Nara Deal MD, Manager Latin) 10/09/2024 11:50 AM [facility] Tissue Urine specimen from urethra / Unknown 09/19/2024 09/25/2024 8:14 AM EST us Glo MATT LAB PATHOLOGY ORDERABLES Final Result [facility] 299 [place] [address], documented in this encounter Visit Diagnoses Diagnosis Personal history of malignant neoplasm of bladder documented in this encounter Care Teams [facility] Relationship Specialty Start Date End Date Markos James MD [address] [place] [address] [address] [facility] [place] [address] PCP - General 01/08/24 documented as of this encounter
--- OUTSIDE RECORDS SUMMARY | 2024-10-30 13:56 | XMS_ITS | Clinical Summary ---
Author Organization [employer] Address 75 [facility] 7t [place] [address] Care Team Providers Care Prepress Operator Name Role Phone Unavailable Primary Care [...]
--- OUTSIDE RECORDS SUMMARY | 2024-10-30 13:56 | XMS_ITS | Encounter Summary ---
Author Organization [employer] Address 75 [facility] 7t [place] [address] Care Team Providers Care Survey Workers Supervisor Name Role Phone Unavailable Primary Care [...]
== END 2024-10-30 10:27 | disposition home or self-care (01) ==
LOC: HO.LAB 10:26
PROVIDERS: Internal Medicine Gastroenterology; PCP Internal Medicine
DX: J44.9 Chronic obstructive pulmonary disease, unspecified (principal); K21.9 Gastro-esophageal reflux disease without esophagitis; I10 Essential (primary) hypertension; F41.9 Anxiety disorder, unspecified; E78.00 Pure hypercholesterolemia, unspecified; R05.9 Cough, unspecified; R09.89 Other specified symptoms and signs involving the circulatory and respiratory systems; R10.813 Right lower quadrant abdominal tenderness; R10.10 Upper abdominal pain, unspecified
CPT/HCPCS: 0241U; 36415; 80076; 82565; 83690; 84520; 85025; 86140; 96127; 99212

== ENCOUNTER 2024-10-30 10:26 | Outpatient (AMB) | payer MEDICARE, SELFPAY ==
--- NOTE | 2024-10-30 10:32 | A.OFFPC_ITS ---
Vital Signs 10/30/24 10:34 Height 5 ft 3 in Weight 167 lb 2 oz BMI 29.6 BP 130/62 Blood Pressure Location Lt brachial Position Sitting Pulse 68 Pulse Source Pulse Oximeter Temp 97.5 F Temp Source Temporal Artery Scan Pulse Oximetry (%) 95 Oxygen Delivery Method Room Air Intake Visit Reasons: f/u COPD, HTN Intake Note: Patient is here to follow up on COPD, HTN. Bronze Plater Required: No Tree Driller: Not Required per policy Accompanied by: Self / Same As Patient Allergies oxycodone [From OXYCONTIN] Allergy (Mild, Verified 10/30/24 10:40) PRURITUS, severe itching adhesive tape Allergy (Unknown, Verified 10/30/24 10:40) BLISTERS cephalexin [Keflex] Allergy (Unknown, Verified 10/30/24 10:40) hives doxycycline [DOXYCYCLINE] Adverse Reaction (Intermediate, Verified 10/30/24 10:40) STOMACH PAINS Medication List - Last Reconciled 10/30/24 by Lorna Hou PA-C acetaminophen (Tylenol Extra Strength) 1,000 mg PO Q6H PRN albuterol sulfate 90 mcg/actuation (Ventolin HFA) 2 puffs inhalation Q4-6H PRN 30 days amlodipine 5 mg PO DAILY ascorbate calcium (vitamin C) 500 mg PO DAILY atorvastatin 20 mg PO DAILY esvoxsuqcw-putcfbctahdyg-vomq 50-325-40 mg 1 tab PO Q6H PRN cholecalciferol (vitamin D3) 50 mcg PO DAILY desvenlafaxine succinate ER 25 mg PO DAILY diphenoxylate-atropine 2.5-0.025 mg (Lomotil) 1 tab PO BEDTIME PRN gabapentin 100 mg PO TID 90 days lorazepam 0.5 mg PO BID PRN losartan 100 mg PO DAILY 90 days mecobalamin (vitamin B12) (B12 Active) 1,000 mcg PO DAILY meloxicam 15 mg PO DAILY metoprolol succinate ER 50 mg PO DAILY 90 days multivitamin 1 tab PO DAILY triamcinolone acetonide (Nasacort Allergy) 1 spray intranasal DAILY valacyclovir 500 mg PO DAILY Tobacco use date assessed: 10/30/24 Fall risk assessment: No Falls in past year Last assessed Fall Risk: 10/30/24 Dental Screening Dental Screen Date: 10/30/24 Did you have a dental visit in the last 12 months?: Yes Did you have a dental problem in the last 6 months where you did not have access to dental care?: No Was dental information given to patient?: Patient has dentist HPI f/u COPD, HTN HPI Details 79-year-old female with past medical his tory of multiple myeloma, hypertension, GERD, COPD, generalized anxiety disorder, hypercholesterolemia last seen 08/2024 coming in for follow up. In review of the notes, patient was seen by [facility] to 09/22/[address] of abdomen and pelvis as well as blood work advised to follow up in 2 months.? Patient was seen by [facility] 09/2024 for wrist pain recommending bracing, topical creams and anti-inflammatories and follow up in 3-4 months. Presenting with a persistent cough following a respiratory syncytial virus infection in August. The cough, initially resolving, recurred following potential exposure to an infectious child. The patient underwent oral surgery two days prior, taking precautions to manage coughing during the procedure. Recent oral surgery addressed gum overgrowth on implants, infection management, and necessitated bone grafting due to suspected bone loss. She has arthritis with significant pain affecting mobility. Previous treatments, inclusive of meloxicam and Voltaren, provided inadequate relief. [facility] Medical History Osteoarthritis of knees, bilateral Abnormal finding on MRI of brain Long-term current use of intravenous immunoglobulin (IVIG) Tinea pedis Urinary incontinence, urge Urinary frequency Urinary urgency TSH elevation Nasal congestion Hospital discharge follow-up Sepsis Pneumonia Acute exacerbation of chronic obstructive pulmonary disease Chronic cough Generalized anxiety disorder Right low back pain Hand pain Dysphagia, pharyngoesophageal phase Costochondritis Dyspnea on exertion COPD (chronic obstructive pulmonary disease) Chronic diarrhea Anxiety Cataract Bladder cancer GERD (gastroesophageal reflux disease) Asthma IBS (irritable bowel syndrome) Hypertension Multiple myeloma Surgical History History of oral surgery History of esophagogastroduodenoscopy (EGD) H/O colonoscopy History of eyelid surgery History of tonsillectomy H/O wrist surgery H/O eye surgery History of arthroscopy of both knees H/O rotator cuff surgery H/O cardiac catheterization Family History Father Pancreatic cancer Diabetes Stroke Mother No problems noted. Sister Diabetes Son No problems noted. Social History Household Members: Spouse Housing: Condominium Are you a primary ambulatory care coordinator to a significant other at home: No Do you presently have visiting nurse or other home services: Yes ([facility]) Alcohol intake: never Patient Tobacco Use Status: Former Tobacco user Tobacco use type: Cigarette e-Cigarette/Vaping Use: Never Used Second Hand Smoke Exposure: No Advance Directives Date on File: 07/20/23 service: No Current occupational status: retired Cognitive needs: No Hearing needs: No Vision needs: Yes (Glasses) Questionnaire PHQ-9 Over the last 2 weeks, how often have you been bothered by any of the following problems? 1. Little interest or pleasure in doing things: not at all 2. Feeling down, depressed, or hopeless: not at all 3. Trouble falling or staying asleep, or sleeping too much: not at all 4. Feeling tired or having little energy: not at all 5. Poor appetite or overeating: not at all 6. Feeling bad about yourself - or that you are a failure or have let yourself or your family down: not at all 7. Trouble concentrating on things, such as reading the newspaper or watching television: not at all 8. Moving or speaking so slowly that other people could have noticed. Or the opposite - being so fidgety or restless that you have been moving around a lot more than usual: not at all 9. Thoughts that you would be better off or of hurting yourself in some way: not at all Total score: 0 Depression Screening Interpretation: Negative Depression Screening Done: Yes Source: Developed by Drs. Ian Moss, Moni Maharaj, Usama Garces and colleagues, with an educational jaylon from [employer]. Thrive Questionnaire Date Thrive assessed: 10/30/24 I am a: Patient What is your living situation today?: I have a steady place to live Within the past 12 months, did the food you bought not last and you didn't have the money to get more?: Never true Within the past 12 months, did you worry whether your food would run out before you got money to buy more?: Never true Do you have trouble paying for medicines?: No Do you have trouble getting transportation to medical appointments?: No Do you have trouble paying your heating and electricity bill?: No Do you have trouble taking care of your child, family member or friend?: No Do you have trouble with day-to-day activities such as bathing, preparing meals, shopping, managing finances, etc.?: No Are you currently unemployed and looking for a job?: No Are you interested in more education?: No Please select the resources that you would like help with: None Currently or been in a relationship where the following occur: No concerns reported THRIVE Score: 0 AUDIT C Alcohol Use Questionnaire (AUDIT-C) 1. How often do you have a drink containing alcohol?: Never Total Score: 0 JAMAICA-7 AMB Questionnaire JAMAICA-7 Date JAMAICA - 7 assessed: 10/30/24 Feeling nervous, anxious, or on edge: 0 = Not at all Not being able to stop or control worryin = Not at all Worrying too much about different things: 0 = Not at all Trouble relaxin = Not at all Being so restless that it is hard to sit still: 0 = Not at all Becoming easily annoyed or irritable: 0 = Not at all Feeling afraid as if something awful might happen: 0 = Not at all Total J[place]ICA-7 score (0-4 normal; 5-9 mild; 10-14 moderate; 15-21 severe): 0 Source: Developed by Drs. Ina Moss, Moni Maharaj, Usama Garces and colleagues, with an educational jaylon from [employer]. Review of Systems Const Denies body aches, Denies chills, Denies fever(s), Denies headache(s) and Denies poor appetite Eyes Reports no additional complaints ENT Denies dysphagia, Denies dizziness, Denies headache(s) and Denies odynophagia Card Denies chest pain, Denies syncope, Denies edema, Denies irregular heart rhythm, Denies lightheadedness and Denies dyspnea Resp Denies cough and Denies dyspnea GI Denies abdominal pain, Denies constipation, Denies dysphagia, Denies diarrhea, Denies nausea, Denies odynophagia and Denies vomiting Reports no additional complaints Musc Reports no additional complaints and Denies abnormal gait Skin/Breast Reports system reviewed and no additional complaints, except as documented Neuro Denies abnormal gait, Denies dizziness, Denies syncope and Denies headache(s) Psych Reports no additional complaints Physical exam (Primary Care) Vital Signs: Last Vital Signs Temp 97.5 F 10/30/24 10:34 Pulse 68 10/30/24 10:34 BP 130/62 10/30/24 10:34 Pulse Ox 95 10/30/24 10:34 Oxygen Delivery Method Room Air 10/30/24 10:34 BMI result Body Mass Index 29.6 Tobacco/Smoking Status: Tobacco use Status Tobacco use date assessed 10/30/24 10/30/24 10:39 Patient Tobacco Use Status Former Tobacco user 10/30/24 10:39 Tobacco use type Cigarette 10/30/24 10:39 e-Cigarette/Vaping Use Never Used 10/30/24 10:39 PHQ-9: PHQ-9 Score PHQ-9: Total score 0 10/30/24 10:40 Depression Screening Interpretation: Negative Thrive Assessment: Date of Thrive Assessment Date Thrive assessed 10/30/24 10/30/24 10:39 Currently or been in a relationship where the following occur: No concerns reported Const General: cooperative, healthy appearing, comfortable and no acute distress Orientation/consciousness: patient oriented x3 HENMT Head: Yes normocephalic Ears: hearing grossly normal bilaterally General nose exam: Normal external nose present Eyes General: appearance normal, both eyes and all related structures Conjunctivae: conjunctivae normal Neck Neck: Yes full ROM and Yes no lymphadenopathy Resp Effort & Inspection: normal respiratory effort Auscultation: clear to auscultation bilaterally, no crackles, no rales, no rhonchi and no wheezes Cardio Rate: regular rate Rhythm: regular rhythm Skin General skin exam: no rashes or lesions noted Neuro General: patient oriented x3 Gait exam (Neuro): Normal gait present Extrem General: Yes normal to inspection, Yes full ROM and No edema Psych Affect: normal affect Attitude: cooperative Insight: Good insight present (Psych) Judgement: Good judgement present (Psych) Coding Level of Care Code Est Pt Level 3 (69012) Diagnoses COPD (chronic obstructive pulmonary disease) J44.9 Gastroesophageal reflux disease without esophagitis K21.9 Esophagitis presence: without esophagitis Essential hypertension I10 Hypertension type: essential hypertension Anxiety F41.9 Hypercholesterolemia E78.00 Cough R05.9 Assessment & Plan Assessment & Plan (1) COPD (chronic obstructive pulmonary disease): Comment: She does have evidence of mild to moderate degree of CHRONIC OBSTRUCTIVE PULMONARY DISEASE, in addition to symptoms of mild bronchial asthma. It is relatively stable and at present she is not using Symbicort, she has not noticed any difference from before. She does have albuterol HFA on hand. Code(s): J44.9 - Chronic obstructive pulmonary disease, unspecified Category: Medical Plan: Continue on inhalers. Patient feels symptoms are well managed at this time. Continue to follow with pulmonology. (2) GERD (gastroesophageal reflux disease): Code(s): K21.9 - Gastro-esophageal reflux disease without esophagitis Category: Medical Qualifiers: Esophagitis presence: without esophagitis Qualified Code(s): K21.9 - Gastro-esophageal reflux disease without esophagitis Plan: Avoid trigger foods such as citrus, tomato products, soda, caffeine, spicy foods and other foods that may be irritating to your stomach. Avoid laying flat 3-4 hours after eating and elevate the head of the bed 30 degrees to prevent acid from moving into the esophagus. (3) Hypertension: Code(s): I10 - Essential (primary) hypertension Category: Medical Qualifiers: Hypertension type: essential hypertension Qualified Code(s): I10 - Essential (primary) hypertension Plan: Continue on current blood pressure medication. Avoid salt intake and encourage healthy diet and regular exercise. (4) Anxiety: Comment: She has multifactorial anxiety, and mild depression but is able to cope with that . She uses Lorazepam 0.5 mg PRN . She needs lot of psychological support And also she feels better after venting out, most of her complaints. Code(s): F41.9 - Anxiety disorder, unspecified Category: Medical Plan: Continue on current medication regimen. Feels her symptoms are well managed at this time. (5) Hypercholesterolemia: Code(s): E78.00 - Pure hypercholesterolemia, unspecified Category: Medical Plan: Avoid foods that are high in cholesterol such as red meat, fried foods, eggs and baked goods. Triglyceride goal of less than 150 and LDL goal of less than 100. Reminded about blood work (6) Cough: Code(s): R05.9 - Cough, unspecified Category: Medical Plan: The patient's cough, suspected to be viral in origin, will be assessed via testing for RSV, COVID-19, and flu. Cough is not typically productive and patient denies any fevers. Lungs are CTA on exam. Plan to order for CXR if symptoms do not improve. Reviewed red flag symptoms and when to present for re- evaluation. Plan Patient was informed and verbally consented to the use of an ambient scribe for clinic note documentation during this visit. This note was constructed using voice recognition software. While every effort has been made to ensure accuracy and anvil seating press operator, still areas may have been included sometimes these areas may affect the content or meeting of the given symptoms. Total time spent caring for the patient today was 20 minutes. This includes time spent before the visit reviewing the chart, time spent during the visit, and time spent after the visit and documentation. Orders: Orders SARS-CoV2/FLU/RSV Today R09.89 - Other specified symptoms and signs involving the circulatory and respiratory systems
[2024-10-30 10:34] VITALS: BP 130/62; PULSE 68; TEMP 36.4; O2SAT 95; BMI 29.6
--- OUTSIDE RECORDS SUMMARY | 2024-10-30 12:09 | XMS_ITS | Encounter Summary ---
Author Organization [employer] Address [address] [facility] 7t [place] [address] Care Team Providers Care High Energy Forming Equipment Operator Name Role Phone Unavailable Primary Care [...]
--- OUTSIDE RECORDS SUMMARY | 2024-10-30 12:09 | XMS_ITS | Clinical Summary ---
Author Organization [address] [facility] Address [address] [place] [address] Phone Care Team Providers Care Land Surveying Manager Name Role Phone Markos James MD Primary Care Provider [phone] Allergies Active Allergy Reactions Criticality Noted Date [...] 11:15 AM EST Office Visit Orthopedic Surgery [facility] [address] [facility] [address] [place] [address] Deisi Whitt PA [facility] arthritis (Primary Dx); Wrist arthritis 09/25/2024 Lab Requisition [facility] - Main Lab [address] [facility] [place] [address] Glo Espinoza PA Personal history of malignant neoplasm of bladder 09/10/2024 11:45 AM EST Office Visit Orthopedic Surgery [address] [place] [phone] Deisi Whitt PA [facility] arthritis (Primary Dx); [...] AM EDT Office Visit Orthopedic Surgery - [place] [address] [facility] [address] [place] [address] Deisi Whitt PA [address] [facility] [address] [place] [address] Health Maintenance Due Date Last [...] Personal history of malignant neoplasm of bladder ND ARTHROCENTESIS/ASPIRA TION/INJECTION INTERMEDIATE JOINT/BURSA WO U/S GUID Routine 09/10/2024 11:45 AM EST [facility] arthritis Wrist arthritis ND ARTHROCENTESIS/ASPIRA TION/INJECTION SMALL JOINT/BURSA WO U/S GUIDANCE Routine 09/10/2024 11:45 AM EST [facility] arthritis Wrist arthritis from Last 3 Months Results * Anatomic pathology outside consult (09/19/2024 12:00 AM EST) Final Diagnosis A. Urine, Voided, ([id number]): Negative for high grade urothelial carcinoma. Results [...] HOSPITAL LAB Gross Description A. Urine, Voided, ([id number]): Received one ThinPrep slide for cytology screen and one ThinPrep slide for UroVysion FISH 10/09/2024 11:50 AM [facility] Disclaimer Unless otherwise specified, all tissue is 10% NB formalin fixed and paraffin embedded. Technical pathology services provided by [facility] at [facility] [address] [place] [address] (CLIA #[id number]/Nara Deal MD, Oil Field Technician) 10/09/2024 11:50 AM [facility] Tissue Urine specimen from urethra / Unknown 09/19/2024 09/25/2024 8:14 AM EST Glo MATT LAB PATHOLOGY ORDERABLES Final Result [facility] [address] [place] [address], * ND ARTHROCENTESIS/ASPIRATION/INJECTION SMALL JOINT/BURSA WO U/S GUIDANCE (09/10/2024 [...] MATT IN CLINIC/BEDSIDE ORDERABLES Final Result * ND ARTHROCENTESIS/ASPIRATION/INJECTION INTERMEDIATE JOINT/BURSA WO U/S GUID (09/10/2024 [...] - [place] MEDICARE AD[place]ANTAGE MEDICARE Care Teams Land Surveying Manager Relationship Specialty Start Date End Date Markos James MD [address] [place] [address] [address] [facility] [place] [id number] PCP - General 01/08/24
--- OUTSIDE RECORDS SUMMARY | 2024-10-30 12:09 | XMS_ITS | Encounter Summary ---
Author Organization [facility] Address [address] [place] [address] Care Team Providers Care Lab Engineer Name Role Phone Markos James MD Primary Care Provider [phone] Encounter Details Date Type Department Care Team (Late st Contact Info) Description 09/25/2024 Lab Requisition [facility] - Main Lab [address] [facility] [place] [address] Glo Espinoza PA [address] [place], [place] [phone] Personal history of malignant neoplasm of bladder [...] AM EDT Office Visit Orthopedic Surgery - [place] [address] [facility] [address] [place] [phone] Deisi Whitt PA [address] [facility] [address] [place] [phone] documented as of this encounter Procedures Procedure Name Priority Date/Time Associated Diagnosis Comments AP OUTSIDE CONSULT Routine 09/19/2024 12 :00 AM EST Personal history of malignant neoplasm of bladder documented in this encounter Results * Anatomic pathology outside consult (09/19/2024 12:00 AM EST) Final Diagnosis A. Urine, Voided, ([id number]): Negative for high grade urothelial carcinoma. Results of UroVysion fluorescence in situ hybridization (FISH) testing: CEP3: Normal CEP7: Normal CEP17: Normal LSI 9p21: Normal Interpretation: Normal profile Controls stained appropriately. Note: The results are intended as a screening device and should be interpreted in association with other clinical and pathological findings. 10/09/2024 11:50 AM [facility] Clinical Information History of bladder neoplasm (malignant) Z85.51 Urine Cytology/FISH (now) 10/09/2024 11:50 AM [facility] Gross Description A. Urine, Voided, ([id number]): Received one ThinPrep slide for cytology screen and one ThinPrep slide for UroVysion FISH 10/09/2024 11:50 AM [facility] Disclaimer Unless otherwise specified, all tissue is 10% NB formalin fixed and paraffin embedded. Technical pathology services provided by [facility] Urology at [address] [facility] [address], [place] [address] (CLIA #[id number]/Nara Deal MD, Trailer Park Manager) 10/09/2024 11:50 AM [facility] Tissue Urine specimen from urethra / Unknown 09/19/2024 09/25/2024 8:14 AM EST us Glo [facility] LAB PATHOLOGY ORDERABLES Final Result [facility] [address] [place] [address], documented in this encounter Visit Diagnoses Diagnosis Personal history of malignant neoplasm of bladder documented in this encounter Care Teams Lab Engineer Relationship Specialty Start Date End Date Markos James MD [address] [place] [address] [address] [facility] [place] [address] PCP - General 01/08/24 documented as of this encounter
--- OUTSIDE RECORDS SUMMARY | 2024-10-30 12:09 | XMS_ITS | Encounter Summary ---
Author Organization [facility] Address [address] [place] [address] Care Team Providers Care Counter Top Maker Name Role Phone Markos James MD Primary Care Provider [phone] Reason for Visit * Reason Comments Pain Pain Encounter Details Date Type Department Care Team (Late st Contact Info) Description 10/02/2024 11:15 AM EST Office Visit Orthopedic Surgery - [place] [address] [facility] [address] [place] [phone] Deisi Whitt PA [address] [facility] [address] [place] [address] [facility] arthritis (Primary Dx); Wrist [...] Upcoming Encounters Date Type Department Care Team ([facility] st Contact Info) Description 12/29/2024 11:30 AM EDT Office Visit Orthopedic Surgery - [place] [address] [facility] 140 [place] [address] Deisi Whitt PA [address] [facility] [address] [place] [phone] documented as of this encounter Visit Diagnoses Diagnosis [facility] arthritis- Primary Wrist arthritis Unspecified arthropathy, forearm documented in this encounter Care Teams Counter Top Maker Relationship Specialty Start Date End Date Markos James MD [address] [place] [address] [address] [facility] [place] [address] PCP - General 01/08/24 documented as of this encounter
--- OUTSIDE RECORDS SUMMARY | 2024-10-30 12:09 | XMS_ITS | Encounter Summary ---
Author Organization [employer] Address [address] [facility] 7t [place] [address] Care Team Providers Care Incubator Machine Operator Name Role Phone Unavailable Primary Care Provider Unavailabl e Reason for Visit * Reason Onset Date Comments appt 08/13/2023 Encounter Details Date Type Department Care Team (Late st Contact Info) Description 08/13/2023 Telephone [facility] [address] [place] [address] Lala Phillips DDS [address] [place], [place] [phone] appt Social History Tobacco Use Types Packs/Day [...]
--- OUTSIDE RECORDS SUMMARY | 2024-10-30 12:09 | XMS_ITS | Clinical Summary ---
Author Organization [employer] Address [address] [facility] 7t [place] [address] Care Team Providers Care Roundhouse Supervisor Name Role Phone Unavailable Primary Care Provider [...]
--- OUTSIDE RECORDS SUMMARY | 2024-10-30 12:09 | XMS_ITS | Encounter Summary ---
Author Organization [employer] Address [address] [facility] 7t [place] [address] Care Team Providers Care Director Of Learning Name Role Phone Unavailable Primary Care Provider [...]
== END 2024-10-30 11:14 | disposition home or self-care (01) ==
PROVIDERS: PCP Internal Medicine
DX: J44.9 Chronic obstructive pulmonary disease, unspecified (principal); K21.9 Gastro-esophageal reflux disease without esophagitis; I10 Essential (primary) hypertension; F41.9 Anxiety disorder, unspecified; E78.00 Pure hypercholesterolemia, unspecified; R05.9 Cough, unspecified

== ENCOUNTER → 2024-11-03 07:54 | Outpatient (REF) | payer MEDICARE, SELFPAY ==
--- NOTE | ~2024-11-03 | NM_ITS ---
EXAMINATION: NM HEPATOBILIARY WITH PHARM HISTORY: K80.20 - Calculus of gallbladder without cholecystitis without obstruction. TECHNIQUE: And hepatobiliary scan was performed following intravenous administration of 5.0 mCi technetium 99m-mebrofenin. The patient received intravenous 1.5 micrograms CCK approximately 1 hour after injection of the radiopharmaceutical. COMPARISON: Correlation is made with an abdominal ultrasound dated 09/17/2024. FINDINGS: There is normal uptake and excretion of the radiopharmaceutical by the liver. Common bile duct activity is seen at 12 minutes. Gallbladder activity is noted at 20 minutes. Small bowel activity is seen at 50 minutes. After the administration of intravenous CCK, there is no significant gallbladder emptying. NM/NM hepatobiliary w pharm IMPRESSION: No significant gallbladder emptying is seen, compatible with biliary dyskinesia. Electronically signed by: Ian Galarza MD 11/03/2024 10:51 AM EST
--- OUTSIDE RECORDS SUMMARY | 2024-11-03 07:57 | XMS_ITS | Encounter Summary ---
Author Organization [employer] Address 75 [facility] 7t [place] [address] Care Team Providers Care Waterproof Bag Sewer Name Role Phone Unavailable Primary Care Provider [...]
--- OUTSIDE RECORDS SUMMARY | 2024-11-03 07:57 | XMS_ITS | Encounter Summary ---
Author Organization [facility] Address [address] [place] [address] Care Team Providers Care Machine Silver Stripper Name Role Phone Markos James MD Primary Care Provider Encounter Details Date Type Department Care Team (Late st Contact Info) Description 09/25/2024 Lab Requisition [facility] - Main Lab 299 [facility] [place] [address] Glo Espinoza PA [address] [place], [place] [phone] Personal history of malignant neoplasm of bladder [...] AM EDT Office Visit Orthopedic Surgery - [place] [address] [facility] [address] [place] [phone] Deisi Whitt PA 174 [facility] [address] [place] [phone] documented as of this encounter Procedures Procedure Name Priority Date/Time Associated Diagnosis Comments AP OUTSIDE CONSULT Routine 09/19/2024 12 :00 AM EST Personal history of malignant neoplasm of bladder documented in this encounter Results * Anatomic pathology outside consult (09/19/2024 12:00 AM EST) Final Diagnosis A. Urine, Voided, ([id number]): Negative for high grade urothelial carcinoma. Results of UroVysion fluorescence in situ hybridization (FISH) testing: CEP3: Normal CEP7: Normal CEP17: Normal LSI 9p21: Normal Interpretation: Normal profile Controls stained appropriately. Note: The results are intended as a screening device and should be interpreted in association with other clinical and pathological findings. 10/09/2024 11:50 AM [facility] Clinical Information History of bladder neoplasm (malignant) Z85.51 Urine Cytology/FISH (now) 10/09/2024 11:50 AM [facility] Gross Description A. Urine, Voided, ([id number]): Received one ThinPrep slide for cytology screen and one ThinPrep slide for UroVysion FISH 10/09/2024 11:50 AM [facility] Disclaimer Unless otherwise specified, all tissue is 10% NB formalin fixed and paraffin embedded. Technical pathology services provided by [facility] Urology at [address] [facility] [address], [place] [address] (CLIA #[id number]/Nara Deal MD, Stopping Builder) 10/09/2024 11:50 AM [facility] Tissue Urine specimen from urethra / Unknown 09/19/2024 09/25/2024 8:14 AM EST us Glo MATT LAB PATHOLOGY ORDERABLES Final Result [facility] LAB 299 [place] [address], documented in this encounter Visit Diagnoses Diagnosis Personal history of malignant neoplasm of bladder documented in this encounter Care Teams Machine Silver Stripper Relationship Specialty Start Date End Date Markos James MD [address] [place] [address] [address] [facility] [place] [address] PCP - General 01/08/24 documented as of this encounter
--- OUTSIDE RECORDS SUMMARY | 2024-11-03 07:57 | XMS_ITS | Clinical Summary ---
Author Organization [employer] Address 75 [facility] 7t [place] [address] Care Team Providers Care Bronc Buster Name Role Phone Unavailable Primary Care Provider [...]
--- OUTSIDE RECORDS SUMMARY | 2024-11-03 07:57 | XMS_ITS | Clinical Summary ---
Author Organization 175 [facility] Address 175 [place] [address] Phone Care Team Providers Care Coke Drawer Hand Name Role Phone Markos James MD Primary Care Provider [phone] Allergies Active Allergy Reactions Criticality Noted Date [...] 11:15 AM EST Office Visit Orthopedic Surgery [facility] 175 [facility] 140 [place] [address] Deisi Whitt PA CMC arthritis (Primary Dx); Wrist arthritis 09/25/2024 Lab Requisition [facility] - Main Lab 299 [facility] [place] [address] Glo Espinoza PA Personal history of malignant neoplasm of bladder 09/10/2024 11:45 AM EST Office Visit Orthopedic Surgery [address] [place] [phone] Deisi Whitt PA CMC arthritis (Primary Dx); [...] AM EDT Office Visit Orthopedic Surgery - [place] 175 [facility] [address] [place] [address] Deisi Whitt PA 174 [facility] [address] [place] [address] Health Maintenance Due Date Last [...] Personal history of malignant neoplasm of bladder [place] ARTHROCENTESIS/ASPIRA TION/INJECTION INTERMEDIATE JOINT/BURSA WO U/S GUID Routine 09/10/2024 11:45 AM EST CMC arthritis Wrist arthritis [place] ARTHROCENTESIS/ASPIRA TION/INJECTION SMALL JOINT/BURSA WO U/S GUIDANCE Routine 09/10/2024 11:45 AM EST [facility]MC arthritis Wrist arthritis from Last 3 Months Results * Anatomic pathology outside consult (09/19/2024 12:00 AM EST) Final Diagnosis A. Urine, Voided, ([id number]): Negative for high grade urothelial carcinoma. Results of UroVysion fluorescence in situ hybridization (FISH) testing: CEP3: Normal CEP7: Normal CEP17: Normal LSI 9p21: Normal Interpretation: Normal profile Controls stained appropriately. Note: The results are intended as a screening device and should be interpreted in association with other clinical and pathological findings. 10/09/2024 11:50 AM [facility] Clinical Information History of bladder neoplasm (malignant) Z85.51 Urine Cytology/FISH (now) 10/09/2024 11:50 AM [facility] Gross Description A. Urine, Voided, ([id number]): Received one ThinPrep slide for cytology screen and one ThinPrep slide for UroVysion FISH 10/09/2024 11:50 AM [facility] Disclaimer Unless otherwise specified, all tissue is 10% NB formalin fixed and paraffin embedded. Technical pathology services provided by [facility] Urology at [facility] [address] [place] [address] (CLIA #[id number]/Nara Deal MD, Area Representative) 10/09/2024 11:50 AM [facility] Tissue Urine specimen from urethra / Unknown 09/19/2024 09/25/2024 8:14 AM EST Glo MATT LAB PATHOLOGY ORDERABLES Final Result [facility] 299 [place] [address], * [place] ARTHROCENTESIS/ASPIRATION/INJECTION SMALL JOINT/BURSA WO U/S GUIDANCE (09/10/2024 [...] MATT IN CLINIC/BEDSIDE ORDERABLES Final Result * [place] ARTHROCENTESIS/ASPIRATION/INJECTION INTERMEDIATE JOINT/BURSA WO U/S GUID (09/10/2024 [...] - [place]ICARE Care Teams Coke Drawer Hand Relationship Specialty Start Date End Date Markos James MD [address] [place] [address] [address] [facility] [place] [address] PCP - General 01/08/24
--- OUTSIDE RECORDS SUMMARY | 2024-11-03 07:57 | XMS_ITS | Encounter Summary ---
Author Organization [employer] Address 75 [facility] 7t [place] [address] Care Team Providers Care Greenhouse Superintendent Name Role Phone Unavailable Primary Care Provider Unavailabl e Reason for Visit * Reason Onset Date Comments appt 08/13/2023 Encounter Details Date Type Department Care Team (Late st Contact Info) Description 08/13/2023 Telephone [facility] [address] [place] [address] Lala Phillips DDS [address] [place], [place] [phone] appt Social History Tobacco Use Types Packs/Day [...]
--- OUTSIDE RECORDS SUMMARY | 2024-11-03 07:57 | XMS_ITS | Encounter Summary ---
Author Organization [employer] Address 75 [facility] 7t [place] [address] Care Team Providers Care Shredded Filler Machine Wrapper Layer Name Role Phone Unavailable Primary Care Provider [...]
== END ==
LOC: HO.NUCMED 07:54
PROVIDERS: PCP Internal Medicine; Visit Provider Internal Medicine Gastroenterology
DX: K80.20 Calculus of gallbladder without cholecystitis without obstruction (principal)
CPT/HCPCS: 78227; A9537; J2805

== ENCOUNTER → 2024-11-03 08:17 | Outpatient (BNV) | payer MEDICARE, SELFPAY | PROVIDERS: PCP Internal Medicine; Visit Provider Radiology Diagnostic Radiology | DX: K80.20 Calculus of gallbladder without cholecystitis without obstruction (principal) | CPT/HCPCS: 78227 ==

== ENCOUNTER 2024-11-25 09:16 | Outpatient (REF) | payer MEDICARE, SELFPAY ==
--- NOTE | ~2024-11-25 | CT_ITS ---
EXAMINATION: CT ABDOMEN PELVIS WITH IV CONTRAST HISTORY: R10.813 - Right lower quadrant abdominal tenderness COMPARISON: Correlation is made with a prior unenhanced abdominal CT from [facility] dated 11/01/2022. TECHNIQUE: CT scan of the abdomen and pelvis was performed following administration of 85 mL Omnipaque 350 using standard departmental protocol. Coronal and sagittal reformatted images were generated and reviewed. Oral contrast material was not administered at the request of the referring physician. This CT exam was performed with one or more of the following dose reduction techniques: automated exposure control, adjustment of the mA and/or kV according to patient size, use of iterative reconstruction technique. DLP: 421 mGy-cm FINDINGS: LOWER CHEST: The visualized lung bases are clear. There is no pleural effusion. CARDIOVASCULATURE: The heart is normal in size. There is no pericardial effusion. LIVER: The liver is normal in size. There is a tiny cleft at the posterior aspect of the right lobe without change. No liver mass is identified. The hepatic and portal veins are patent. GALLBLADDER / BILE DUCTS: There are tiny layering calculi in the gallbladder. There is no intra or extrahepatic biliary ductal dilatation. SPLEEN: The spleen is normal in size. No focal splenic lesion is identified. PANCREAS: The pancreas is unremarkable in appearance. ADRENAL GLANDS: Within normal limits. KIDNEYS/RETROPERITONEUM: No renal calculi are identified. There is no hydronephrosis. There are subcentimeter probable cysts in the right kidney. There is a 5.5 cm cyst at the upper pole of the left kidney. LYMPH NODES: No abdominal or pelvic lymphadenopathy. VASCULATURE: The abdominal aorta demonstrates atherosclerotic calcification, but is normal in caliber. MESENTERY/PERITONEUM: No free fluid. No masses. There is no free intraperitoneal gas. STOMACH: The stomach is collapsed, limiting evaluation. SMALL BOWEL: The small bowel is normal in caliber. COLON: There is diverticulosis of the sigmoid colon, without evidence of diverticulitis. APPENDIX: Normal. URINARY BLADDER/PELVIC ORGANS: The urinary bladder is unremarkable. The uterus and ovaries are unremarkable. BONES / SOFT TISSUES: There is degenerative disc disease of the spine. CT/CT abdomen pelvis w IV con IMPRESSION: 1. Sigmoid diverticulosis without evidence of diverticulitis. 2. Cholelithiasis. Electronically signed by: Ian Galarza MD 11/25/2024 12:18 PM EDT
--- OUTSIDE RECORDS SUMMARY | 2024-11-25 10:14 | XMS_ITS | Encounter Summary ---
Author Organization [employer] Address 75 [facility] 7t [place] [address] Care Team Providers Care Time Broker Name Role Phone Unavailable Primary Care Provider Unavailabl e Reason for Visit * Reason Onset Date Comments appt 08/13/2023 Encounter Details Date Type Department Care Team (Late st Contact Info) Description 08/13/2023 Telephone [facility] [address] [place] [address] Lala Phillips DDS [address] [place], [place] [phone] appt Social History Tobacco Use Types Packs/Day [...]
--- OUTSIDE RECORDS SUMMARY | 2024-11-25 10:14 | XMS_ITS | Encounter Summary ---
Author Organization [employer] Address 75 [facility] 7t [place] [address] Care Team Providers Care Narrative Writer Name Role Phone Unavailable Primary Care Provider [...]
--- OUTSIDE RECORDS SUMMARY | 2024-11-25 10:14 | XMS_ITS | Encounter Summary ---
Author Organization [facility] Address [address] [place] [address] Care Team Providers Care Supervisor Core Shop Name Role Phone Markos James MD Primary Care Provider [phone] Encounter Details Date Type Department Care Team (Late st Contact Info) Description 09/25/2024 Lab Requisition [facility] - Main Lab 299 [facility] [place] [address] Glo Espinoza PA [address] [place], [place] [phone] Personal history of malignant neoplasm of bladder [...] AM EDT Office Visit Orthopedic Surgery - [place] [address] [facility] [address] [place] [phone] Deisi Whitt PA 174 [facility] [address] [place] [phone] documented as of this encounter Procedures Procedure Name Priority Date/Time Associated Diagnosis Comments AP OUTSIDE CONSULT Routine 09/19/2024 12 :00 AM EST Personal history of malignant neoplasm of bladder documented in this encounter Results * Anatomic pathology outside consult (09/19/2024 12:00 AM EST) Final Diagnosis A. Urine, Voided, ([id number]): Negative for high grade urothelial carcinoma. Results of UroVysion fluorescence in situ hybridization (FISH) testing: CEP3: Normal CEP7: Normal CEP17: Normal LSI 9p21: Normal Interpretation: Normal profile Controls stained appropriately. Note: The results are intended as a screening device and should be interpreted in association with other clinical and pathological findings. 10/09/2024 11:50 AM [facility] Clinical Information History of bladder neoplasm (malignant) Z85.51 Urine Cytology/FISH (now) 10/09/2024 11:50 AM [facility] Gross Description A. Urine, Voided, ([id number]): Received one ThinPrep slide for cytology screen and one ThinPrep slide for UroVysion FISH 10/09/2024 11:50 AM [facility] Disclaimer Unless otherwise specified, all tissue is 10% NB formalin fixed and paraffin embedded. Technical pathology services provided by [facility] Urology at [address] [facility] [address], [place] [address] (CLIA #[id number]/Nara Deal MD, Architectural Inspector) 10/09/2024 11:50 AM [facility] Tissue Urine specimen from urethra / Unknown 09/19/2024 09/25/2024 8:14 AM EST us Glo MATT LAB PATHOLOGY ORDERABLES Final Result [facility] [address] [place] [address], documented in this encounter Visit Diagnoses Diagnosis Personal history of malignant neoplasm of bladder documented in this encounter Care Teams Supervisor Core Shop Relationship Specialty Start Date End Date Markos James MD [address] [place] [address] [address] [facility] [place] [address] PCP - General 01/08/24 documented as of this encounter
--- OUTSIDE RECORDS SUMMARY | 2024-11-25 10:14 | XMS_ITS | Clinical Summary ---
Author Organization [employer] Address 75 [facility] 7t [place] [address] Care Team Providers Care Account Support Analyst Name Role Phone Unavailable Primary Care Provider [...]
--- OUTSIDE RECORDS SUMMARY | 2024-11-25 10:14 | XMS_ITS | Encounter Summary ---
Author Organization [employer] Address 75 [facility] 7t [place] [address] Care Team Providers Care Aix System Administrator Name Role Phone Unavailable Primary Care [...]
--- OUTSIDE RECORDS SUMMARY | 2024-11-25 10:14 | XMS_ITS | Clinical Summary ---
Author Organization 175 [facility] Address 175 [place] [address] Phone Care Team Providers Care Letter Of Credit Clerk Name Role Phone Markos James MD Primary Care Provider [phone] Allergies Active Allergy Reactions Criticality Noted Date [...] AM EST Office Visit Orthopedic Surgery [facility] 175 [facility] [address] [place] [address] Deisi Whitt PA CMC arthritis (Primary Dx); Wrist arthritis 09/25/2024 Lab Requisition [facility] - Main Lab 299 [facility] [place] [address] Glo Espinoza PA Personal history of malignant neoplasm of bladder 09/10/2024 11:45 AM EST Office Visit Orthopedic Surgery [address] [place] [phone] Deisi Whitt PA CMC arthritis (Primary Dx); [...] AM EDT Office Visit Orthopedic Surgery - [place] 175 [facility] [address] [place] [address] Deisi Whitt PA 174 [facility] [address] [place] [address] Health Maintenance Due Date Last [...] Personal history of malignant neoplasm of bladder [place] ARTHROCENTESIS/ASPIRA TION/INJECTION INTERMEDIATE JOINT/BURSA WO U/S GUID Routine 09/10/2024 11:45 AM EST CMC arthritis Wrist arthritis [place] ARTHROCENTESIS/ASPIRA TION/INJECTION SMALL JOINT/BURSA WO U/S GUIDANCE Routine 09/10/2024 11:45 AM EST CMC arthritis Wrist arthritis from Last 3 Months Results * Anatomic pathology outside consult (09/19/2024 12:00 AM EST) Final Diagnosis A. Urine, Voided, ([id number]): Negative for high grade urothelial carcinoma. Results of UroVysion fluorescence in situ hybridization (FISH) testing: CEP3: Normal CEP7: Normal CEP17: Normal LSI 9p21: Normal Interpretation: Normal profile Controls stained appropriately. Note: The results are intended as a screening device and should be interpreted in association with other clinical and pathological findings. 10/09/2024 11:50 AM [facility] Clinical Information History of bladder neoplasm (malignant) Z85.51 Urine Cytology/FISH (now) 10/09/2024 11:50 AM [facility] Gross Description A. Urine, Voided, ([id number]): Received one ThinPrep slide for cytology screen and one ThinPrep slide for UroVysion FISH 10/09/2024 11:50 AM [facility] Disclaimer Unless otherwise specified, all tissue is 10% NB formalin fixed and paraffin embedded. Technical pathology services provided by [facility] at [facility] [address] [place] [address] (CLIA #[id number]/Nara Deal MD, Plant Operator Helper) 10/09/2024 11:50 AM [facility] Tissue Urine specimen from urethra / Unknown 09/19/2024 09/25/2024 8:14 AM EST Glo MATT LAB PATHOLOGY ORDERABLES Final Result [facility] [address] [place] [address], * [place] ARTHROCENTESIS/ASPIRATION/INJECTION SMALL JOINT/BURSA WO U/S [...] MATT IN CLINIC/BEDSIDE ORDERABLES Final Result * [place] ARTHROCENTESIS/ASPIRATION/INJECTION INTERMEDIATE JOINT/BURSA WO U/S [...] - [place] MEDIC[place] AD[place] MEDICARE Care Teams Letter Of Credit Clerk Relationship Specialty Start Date End Date Markos James MD [address] [place] [address] [address]ie [address] [facility] [place] [address] PCP - General 01/08/24
[2024-11-25] MEDS: iohexoL 350 MG/ML 75 ML INFUS..BTL 85 ML IV (11:58)
[2024-11-25] MEDS: Barium Sulfate Oral (Mocha) 450 ML ORAL.SUSP 900 ML PO (11:59)
== END 2024-11-25 09:17 | disposition home or self-care (01) ==
LOC: HO.CT 09:16
PROVIDERS: PCP Internal Medicine; Visit Provider Internal Medicine Gastroenterology
DX: R10.813 Right lower quadrant abdominal tenderness (principal); R10.10 Upper abdominal pain, unspecified
CPT/HCPCS: 74177; Q9967

== ENCOUNTER → 2024-11-25 09:19 | Outpatient (BNV) | payer MEDICARE, SELFPAY | PROVIDERS: PCP Internal Medicine; Visit Provider Radiology Diagnostic Radiology | DX: R10.813 Right lower quadrant abdominal tenderness (principal) | CPT/HCPCS: 74177 ==

== ENCOUNTER 2024-11-26 07:55 | Outpatient (REF) | payer MEDICARE, SELFPAY ==
[2024-11-26 08:15] LABS: MANUAL DIFF FLAG NO
[2024-11-26 08:16] LABS: Basophils Percent Auto 0.3 % (0-2); Eosinophils Absolute Auto 0.1 X10*3/uL (0.0-0.4); Hematocrit 37.6 % (37.0-47.0); Hemoglobin 12.6 g/dl (12.0-16.0); Imm Gran Abs Auto 0.04 X10*3/uL (0.00-0.03); Imm Gran Pct Auto 0.7 % (0.0-0.4); Lymphocytes Absolute Auto 0.4 X10*3/uL (1.2-4.9); Lymphocytes Percent Auto 7.6 % (20-40); Mean Corpuscular HGB Conc 33.5 g/dl (31.0-35.0); Mean Corpuscular Hemoglobin 29.1 pg (27.0-33.0); Mean Corpuscular Volume 86.8 fL (80.0-98.0); Mean Platelet Volume 8.3 fL (9.4-12.3); Monocytes Absolute Auto 0.5 X10*3/uL (0.1-1.2); Monocytes Percent Auto 9.4 % (2-11); Neutrophils Absolute Auto 4.7 x10*3/uL (2.0-8.3); Platelet Count 105 X10*3/uL (160-400); Red Blood Count 4.33 X10*6/uL (4.20-5.50); Red Cell Distribution Width 14.1 % (11.0-16.0); White Blood Count 5.8 X10*3/uL (4.8-10.8)
[2024-11-26 08:36] LABS: Alanine Aminotransferase 22 U/L (0-31); Albumin Level 4.2 g/dL (3.5-5.0); Alkaline Phosphatase 92 U/L (39-117); Anion Gap 9 (12-20); Aspartate Amino Transferase 22 U/L (5-31); Bilirubin Total 0.5 mg/dL (0.0-1.0); Blood Urea Nitrogen 19 mg/dL (9-16); Calcium 9.8 mg/dL (8.4-10.2); Carbon Dioxide 27 mmol/L (22-29); Chloride 111 mmol/L (96-108); Estimated Glomerular Filt Rate 57; Glucose Random 118 mg/dL (60-115); Potassium 4.7 mmol/L (3.3-5.1); Sodium 142 mmol/L (135-145); Total Protein 6.3 g/dL (6.5-8.0)
[2024-11-27 11:24] LABS: Kappa Light Chain, Free Serum 3.9 mg/L (3.3-19.4); Lambda Light Chain, Free Serum 2.3 mg/L (5.7-26.3)
[2024-11-28 17:04] LABS: IgA 12 mg/dL (70-320); IgG 371 mg/dL (600-1540); IgM 22 mg/dL (50-300)
== END 2024-11-26 07:56 | disposition home or self-care (01) ==
LOC: HO.LAB 07:55
PROVIDERS: PCP Internal Medicine; Visit Provider Internal Medicine Medical Oncology
DX: C90.00 Multiple myeloma not having achieved remission (principal)
CPT/HCPCS: 36415; 80053; 82784; 83521; 85025; 86334

== ENCOUNTER 2024-12-15 13:42 | Outpatient (AMB) | payer MEDICARE, SELFPAY ==
[2024-12-15 13:51] VITALS: BP 120/60; PULSE 56; O2SAT 96; BMI 29.3
--- NOTE | 2024-12-15 13:51 | A.OFFVIS_ITS ---
Vital Signs 12/15/24 13:51 Height 5 ft 3 in Weight 165 lb 5.547 oz BMI 29.3 BP 120/60 Blood Pressure Location Lt brachial Position Sitting Pulse 56 Pulse Source Pulse Oximeter Pulse Oximetry (%) 96 Oxygen Delivery Method Room Air Intake Visit Reasons: SOB,chest tightness Intake Note: pt is here for follow up and states she does have short of breath at times, has poc at home that she uses prn., should she get a refill on albuterol hfa, and she does get a tightness under the left breast at times. Sql Dba Required: No Allergies oxycodone [From OXYCONTIN] Allergy (Mild, Verified 12/15/24 16:55) PRURITUS, severe itching adhesive tape Allergy (Unknown, Verified 12/15/24 16:55) BLISTERS cephalexin [Keflex] Allergy (Unknown, Verified 12/15/24 16:55) hives doxycycline [DOXYCYCLINE] Adverse Reaction (Intermediate, Verified 12/15/24 16:55) STOMACH PAINS Medication List - Last Reconciled 12/15/24 by Cyndy Flores MD acetaminophen (Tylenol Extra Strength) 1,000 mg PO Q6H PRN albuterol sulfate 90 mcg/actuation (Ventolin HFA) 2 puffs inhalation Q4-6H PRN 30 days amlodipine 5 mg PO DAILY ascorbate calcium (vitamin C) 500 mg PO DAILY atorvastatin 20 mg PO DAILY rzfacgihvs-curkdhwylsbok-dprm 50-325-40 mg 1 tab PO Q6H PRN cholecalciferol (vitamin D3) 50 mcg PO DAILY desvenlafaxine succinate ER 25 mg PO DAILY diphenoxylate-atropine 2.5-0.025 mg (Lomotil) 1 tab PO BEDTIME PRN gabapentin 100 mg PO TID 90 days lorazepam 0.5 mg PO BID PRN losartan 100 mg PO DAILY 90 days mecobalamin (vitamin B12) (B12 Active) 1,000 mcg PO DAILY meloxicam 15 mg PO DAILY metoprolol succinate ER 50 mg PO DAILY 90 days multivitamin 1 tab PO DAILY triamcinolone acetonide (Nasacort Allergy) 1 spray intranasal DAILY Do you need a note to return to daycare/school/sports/work: No HPI HPI SOB,chest tightness: Details: KRISTI IS NOW 79 YEARS OLD FEMALE, COMES TO SEE. ME FOR 6 MONTHS FOLLOW-UP PULMONARY ISSUE IS ONLY MILD INTERMITTENT LEFT CHEST WALL PAIN, BUT NO COUGH OR WHEEZING. SHE DOES HAVE OCCASIONAL COUGH OR WHEEZING AND MAY USE VENTOLIN 2 PUFFS, WHICH SHE HAS NOT DONE IN THE LAST FEW MONTHS. SHE HAS MULTIPLE COMORBIDITIES, SHE TENDS TO GET SHORT OF BREATH OFF AND ON ESPECIALLY WITH WALKING. SHE HAS A POC UNIT AT HOME WHICH SHE HAS BOUGHT HERSELF, AND USES O2 ONCE IN A WHILE IF SHE FEELS SHORT OF BREATH OR TIRED. ( THIS MAY BE WORKING A PLACEBO EFFECT ) WE HAD A LENGTHY CONVERSATION MAINLY ABOUT ALL HER MEDICAL PROBLEMS. THE OVERWHELMING ISSUE IS THAT SHE HAS LOT OF PAINS AND ACHES IN HER BACK MUSCLES AND JOINTS, AND SHE GETS TIRED QUITE EASILY. IN SPITE OF ALL THIS SHE REMAINS VERY FUNCTIONAL, WALKING AROUND DAILY, TRAVELS FOR SHORT VOCATION. AND NOW PLANNING TO GO TO [place] FOR ABOUT 1 WEEK IN THE NEAR FUTURE. [facility] Medical History Osteoarthritis of knees, bilateral Abnormal finding on MRI of brain Long-term current use of intravenous immunoglobulin (IVIG) Tinea pedis Urinary incontinence, urge Urinary frequency Urinary urgency TSH elevation Nasal congestion Hospital discharge follow-up Sepsis Pneumonia Acute exacerbation of chronic obstructive pulmonary disease Chronic cough Generalized anxiety disorder Right low back pain Hand pain Dysphagia, pharyngoesophageal phase Costochondritis Dyspnea on exertion COPD (chronic obstructive pulmonary disease) Chronic diarrhea Anxiety Cataract Bladder cancer GERD (gastroesophageal reflux disease) Asthma IBS (irritable bowel syndrome) Hypertension Multiple myeloma Surgical History History of oral surgery History of esophagogastroduodenoscopy (EGD) H/O colonoscopy History of eyelid surgery History of tonsillectomy H/O wrist surgery H/O eye surgery History of arthroscopy of both knees H/O rotator cuff surgery H/O cardiac catheterization Family History Father Pancreatic cancer Diabetes Stroke Mother No problems noted. Sister Diabetes Son No problems noted. Social History Household Members: Spouse Housing: Condominium Are you a primary transition of care specialist to a significant other at home: No Do you presently have visiting nurse or other home services: Yes ([facility]) Alcohol intake: never Patient Tobacco Use Status: Former Tobacco user Tobacco use type: Cigarette e-Cigarette/Vaping Use: Never Used Second Hand Smoke Exposure: No Advance Directives Date on File: 07/20/23 service: No Current occupational status: retired Cognitive needs: No Hearing needs: No Vision needs: Yes (Glasses) Review of Systems Const All systems reviewed & are unremarkable except as noted in HPI and below Eyes Reports no additional complaints ENT Reports no additional complaints, Denies nasal congestion and Denies nasal discharge Card Reports chest pain (Intermittent nonspecific), Denies irregular heart rhythm and Denies leg edema Resp Reports as per HPI and Reports cough GI Reports heartburn (Controlled with Protonix) Reports no additional complaints Musc Reports no additional complaints Skin/Breast Reports system reviewed and no additional complaints, except as documented Neuro Reports no additional complaints Psych Reports anxiety Physical Exam Vital Signs: Last Vital Signs Pulse 56 12/15/24 13:51 BP 120/60 12/15/24 13:51 Pulse Ox 96 12/15/24 13:51 Oxygen Delivery Method Room Air 12/15/24 13:51 BMI result Body Mass Index 29.3 Const General: no acute distress, alert and awake Orientation/consciousness: patient oriented x3 HEENT Head: Yes normal to inspection General nose exam: No nasal polyps present and No nasal discharge present Face and sinus: Yes sinuses nontender Mouth: oropharynx normal Throat: Yes posterior oropharynx normal Eyes General: appearance normal, both eyes and all related structures Neck Neck: Yes normal visual inspection, Yes no lymphadenopathy, Yes trachea midline and Yes no JVD Thyroid: Thyroid normal Chest Chest palpation & inspection: normal inspection of the chest, normal palpation of entire chest wall and no tenderness Resp Other: Percussion note resonant, breath sounds are distant, but no wheezes rhonchi or crepitations are heard Cardio Palpation: normal PMI Rate: regular rate Rhythm: regular rhythm Heart sounds: no gallops and no murmurs GI Palpation (GI): Soft to palpation, nontender, No hepatosplenomegaly present and no masses Auscultation: normal bowel sounds Back/Spine/Pelvis Thoracic/Lumbar Spine: thoracic and lumbar spine normal to inspection Skin General skin exam: no rashes or lesions noted Neuro General: patient oriented x3 and no focal motor deficits Cranial nerves: Yes CN's II-XII intact bilaterally Extrem General: Yes normal to inspection, Yes no clubbing, cyanosis or edema and Yes no calf tenderness Psych Appearance: grossly normal and well kempt Speech and movement: Normal speech and movement present Assessment & Plan Assessment & Plan (1) COPD (chronic obstructive pulmonary disease): Comment: She does have evidence of mild to moderate degree of CHRONIC OBSTRUCTIVE PULMONARY DISEASE, in addition to symptoms of mild bronchial asthma. It is relatively stable and at present she is not using Symbicort, she has not noticed any difference from before. She does have albuterol HFA on hand, NEEDS A NEW SCRIPT . Code(s): J44.9 - Chronic obstructive pulmonary disease, unspecified Category: Medical Plan: NEW SCRIPT FOR VENTOLIN HFA IS SENT TO HER PHARMACY AND I ADVISED HER TO USE 1 OR 2 PUFFS Q 6 HOURS ONLY P.R.N. IF THERE IS INCREASED SHORTNESS OF BREATH OR WHEEZING (2) Anxiety: Comment: She has multifactorial anxiety, and mild depression but is able to cope with that . She uses Lorazepam 0.5 mg PRN . She needs lot of psychological support And also she feels better after venting out, most of her complaints. Code(s): F41.9 - Anxiety disorder, unspecified Category: Medical Plan: OK TO CONTINUE USING LORAZEPAM 0.5 MG Q 6 HOURS P.R.N. (3) Dyspnea on exertion: Comment: Mild to moderate, multifactorial, currently she has somewhat increased episodes of shortness of breath. She uses O2 for short periods p.r.n., and sometimes uses albuterol if there is some tightness. In the chest Code(s): R06.00 - Dyspnea, unspecified Category: Medical Plan: SAME ABOVE Coding Level of Care Code Est Pt Level 3 (05220) Diagnoses COPD (chronic obstructive pulmonary disease) J44.9 Anxiety F41.9 Dyspnea on exertion R06.00
--- OUTSIDE RECORDS SUMMARY | 2024-12-15 15:50 | XMS_ITS | Encounter Summary ---
Author Organization [employer] Address [address] [facility] 7[address] [place] [address] Care Team Providers Care Pet Ambassador Name Role Phone Unavailable Primary Care Provider [...]
--- OUTSIDE RECORDS SUMMARY | 2024-12-15 15:50 | XMS_ITS | Encounter Summary ---
Author Organization [employer] Address [address] [facility] 7t [place] [address] Care Team Providers Care Barking Machine Feeder Name Role Phone Unavailable Primary Care Provider [...]
--- OUTSIDE RECORDS SUMMARY | 2024-12-15 15:51 | XMS_ITS | Encounter Summary ---
Author Organization [facility] Address [id number] [place] [address] Care Team Providers Care Plumbing Warehouse Helper Name Role Phone Markos James MD Primary Care Provider [phone] Encounter Details Date Type Department Care Team (Late st Contact Info) Description 09/25/2024 Lab Requisition [facility] - Main Lab [address] [facility] [place] [address] Glo Espinoza PA [address] [place], [place] [phone] Personal history of malignant neoplasm of bladder [...] Office Visit Orthopedic Surgery - [place] [address] [facility] [address] [place] [phone] Deisi Whitt PA 174 [facility] [address] [place] [phone] documented as of this encounter Procedures Procedure Name Priority Date/Time Associated Diagnosis Comments AP OUTSIDE CONSULT Routine 09/19/2024 12 :00 AM EST Personal history of malignant neoplasm of bladder documented in this encounter Results * Anatomic pathology outside consult (09/19/2024 12:00 AM EST) Final Diagnosis A. Urine, Voided, ([id number]): Negative for high grade urothelial carcinoma. Results [...] HOSPITAL LAB Gross Description A. Urine, Voided, ([id number]): Received one ThinPrep slide for cytology screen and one ThinPrep slide for UroVysion FISH 10/09/2024 11:50 AM [facility] Disclaimer Unless otherwise specified, all tissue is 10% NB formalin fixed and paraffin embedded. Technical pathology services provided by [facility] at [address] [facility] [address], [place] [address] (CLIA #[id number]/Nara Deal MD, Hospital Staff Pharmacist) 10/09/2024 11:50 AM [facility] Tissue Urine specimen from urethra / Unknown 09/19/2024 09/25/2024 8:14 AM EST us Glo MATT LAB PATHOLOGY ORDERABLES Final Result [facility] [address] [place] [address], documented in this encounter Visit Diagnoses Diagnosis Personal history of malignant neoplasm of bladder documented in this encounter Care Teams Plumbing Warehouse Helper Relationship Specialty Start Date End Date Markos James MD [address] [place] [address] [address]ie [address] [facility] [place] [address] PCP - General 01/08/24 documented as of this encounter
--- OUTSIDE RECORDS SUMMARY | 2024-12-15 15:51 | XMS_ITS | Encounter Summary ---
Author Organization [employer] Address [address] [facility] 7t [place] [address] Care Team Providers Care Land Surveyor Name Role Phone Unavailable Primary Care Provider Unavailabl e Reason for Visit * Reason Onset Date Comments appt 08/13/2023 Encounter Details Date Type Department Care Team (Late st Contact Info) Description 08/13/2023 Telephone [facility] [address] [place] [address] Lala Phillips DDS [address] [place], [place] [phone] appt Social History Tobacco Use Types Packs/Day [...]
--- OUTSIDE RECORDS SUMMARY | 2024-12-15 15:51 | XMS_ITS | Clinical Summary ---
Author Organization [employer] Address 75 [facility] 7t [place] [address] Care Team Providers Care Boardmarker Name Role Phone Unavailable Primary Care Provider [...]
--- OUTSIDE RECORDS SUMMARY | 2024-12-15 15:51 | XMS_ITS | Clinical Summary ---
Author Organization 175 [facility] Address 175 [place] [address] Phone Care Team Providers Care Tankman Name Role Phone Markos James MD Primary Care Provider [phone] Allergies Active Allergy Reactions Criticality Noted Date [...] 11:15 AM EST Office Visit Orthopedic Surgery [facility] 175 [facility] [address] [place] [address] Deisi Whitt PA CMC arthritis (Primary Dx); Wrist arthritis 09/25/2024 Lab Requisition [facility] - Main Lab 299 [facility] [place] [address] Glo Espinoza PA Personal history of malignant neoplasm of bladder from Last 3 Months Surgical History Surgery [...] 11:30 AM EDT Office Visit Orthopedic Surgery [facility] 175 [facility] [address] [place] [address] Deisi Whitt PA 174 [facility] [address] [place] [address] Health Maintenance Due Date Last Done Comments DTaP,Tdap,and Td Vaccines (1 - Tdap) 02/08/1964 Zoster Vaccines (1 of 2) 02/08/1963 Depression Screening 08/05/2022 Falls Risk Assessment 08/05/2022 Medicare Annual Wellness Visit 08/05/2022 Osteoporosis Screening (Bone Density Screening) 08/05/2022 Social Influencers of Health Screening 08/05/2022 Cholesterol Screening (Lipid Panel) 09/18/2028 09/18/2023 Pneumococcal Vaccine: 50+ Years Completed 10/07/2018, 01/15/2017 RSV Immunization Adult Patients Completed 07/14/2023 COVID-19 Vaccine Completed 05/27/2024, , [...] age to complete this topic Meningococcal B Vaccine Aged Out No l onger eligible based on patient's age to complete [...] Personal history of malignant neoplasm of bladder from Last 3 Months Results * Anatomic pathology outside consult (09/19/2024 12:00 AM EST) Final Diagnosis A. Urine, Voided, ([id number]): Negative for high grade urothelial carcinoma. Results [...] HOSPITAL LAB Gross Description A. Urine, Voided, ([id number]): Received one ThinPrep slide for cytology screen and one ThinPrep slide for UroVysion FISH 10/09/2024 11:50 AM [facility] Disclaimer Unless otherwise specified, all tissue is 10% NB formalin fixed and paraffin embedded. Technical pathology services provided by [facility] at [address], [place] [address] (CLIA #[id number]/Nara Deal MD, Supervisor Tunnel Heading) 10/09/2024 11:50 AM [facility] Tissue Urine specimen from urethra / Unknown 09/19/2024 09/25/2024 8:14 AM EST us Glo MATT LAB PATHOLOGY ORDERABLES Final Result [facility] [address] [place] [address], from Last 3 Months Insurance MEDICARE [facility] Care Teams Tankman Relationship Specialty Start Date End Date Markos James MD [address] [place] [address] Dr Noel [address] [facility] [place] [address] PCP - General 01/08/24
== END 2024-12-15 14:35 | disposition home or self-care (01) ==
PROVIDERS: PCP Internal Medicine; Visit Provider Internal Medicine
DX: J44.9 Chronic obstructive pulmonary disease, unspecified (principal); F41.9 Anxiety disorder, unspecified; R06.00 Dyspnea, unspecified
CPT/HCPCS: 99213

== ENCOUNTER → 2024-12-15 13:42 | Outpatient (BNVA) | payer MEDICARE, SELFPAY | PROVIDERS: PCP Internal Medicine; Visit Provider Internal Medicine | DX: J44.9 Chronic obstructive pulmonary disease, unspecified (principal); R06.00 Dyspnea, unspecified; F41.9 Anxiety disorder, unspecified; Z87.891 Personal history of nicotine dependence | CPT/HCPCS: 99212 ==

== ENCOUNTER 2025-01-05 09:24 | Outpatient (REF) | payer MEDICARE, SELFPAY ==
--- OUTSIDE RECORDS SUMMARY | 2025-01-05 10:09 | XMS_ITS | Clinical Summary ---
Author Organization [employer] Address [address] [facility] 7t [place] [address] Care Team Providers Care Special Delivery Clerk Name Role Phone Unavailable Primary Care Provider [...]
--- OUTSIDE RECORDS SUMMARY | 2025-01-05 10:09 | XMS_ITS | Encounter Summary ---
Author Organization [facility] Address [address] [place] [id number] Care Team Providers Care Inbound Sales Representative Name Role Phone Markos James MD Primary Care Provider [phone] Encounter Details Date Type Department Care Team (Late st Contact Info) Description 09/25/2024 Lab Requisition [facility] - Main Lab [address] [facility] [place] [address] Glo Espinoza PA [address] [place], [place] [id number] Personal history of malignant neoplasm of bladder [...] on file documented as of this encounter Procedures Procedure Name Priority Date/Time Associated Diagnosis Comments AP OUTSIDE CONSULT Routine 09/19/2024 12 :00 AM EST Personal history of malignant neoplasm of bladder documented in this encounter Results * Anatomic pathology outside consult (09/19/2024 12:00 AM EST) Final Diagnosis A. Urine, Voided, ([id number]): Negative for high grade urothelial carcinoma. Results of UroVysion fluorescence in situ hybridization (FISH) testing: CEP3: Normal CEP7: Normal CEP17: Normal LSI 9p21: Normal Interpretation: Normal profile Controls stained appropriately. Note: The results are intended as a screening device and should be interpreted in association with other clinical and pathological findings. 10/09/2024 11:50 AM EST [facility] Clinical Information History of bladder neoplasm (malignant) Z85.51 Urine Cytology/FISH (now) 10/09/2024 11:50 AM [facility] Gross Description A. Urine, Voided, ([id number]): Received one ThinPrep slide for cytology screen and one ThinPrep slide for UroVysion FISH 10/09/2024 11:50 AM [facility] Disclaimer Unless otherwise specified, all tissue is 10% NB formalin fixed and paraffin embedded. Technical pathology services provided by [facility] at [address] [place] [address] [address], [place] [address] (CLIA #[id number]/Nara Deal MD, Hunting Sales Associate) 10/09/2024 11:50 AM [facility] Tissue Urine specimen from urethra / Unknown 09/19/2024 09/25/2024 8:14 AM EST us Glo [facility] PATHOLOGY ORDERABLES Final Result [facility] [address] [place] [address], documented in this encounter Visit Diagnoses Diagnosis Personal history of malignant neoplasm of bladder documented in this encounter Care Teams Inbound Sales Representative Relationship Specialty Start Date End Date Markos James MD [address] [place] [address] [address] [facility] [place] [address] PCP - General 01/08/24 documented as of this encounter
--- OUTSIDE RECORDS SUMMARY | 2025-01-05 10:09 | XMS_ITS | Encounter Summary ---
Author Organization [employer] Address [address] [facility] 7t [place] [address] Care Team Providers Care Dog Catcher Name Role Phone Unavailable Primary Care Provider [...]
--- OUTSIDE RECORDS SUMMARY | 2025-01-05 10:09 | XMS_ITS | Encounter Summary ---
Author Organization [employer] Address [address] [facility] 7t [place] [address] Care Team Providers Care Business Services Sales Representative Name Role Phone Unavailable Primary Care Provider Unavailabl e Reason for Visit * Reason Onset Date Comments appt 08/13/2023 Encounter Details Date Type Department Care Team (Late st Contact Info) Description 08/13/2023 Telephone [facility] [address] [place] [address] Lala Phillips DDS [address] [place], [place] [id number] appt Social History Tobacco Use Types Packs/Day [...]
--- OUTSIDE RECORDS SUMMARY | 2025-01-05 10:09 | XMS_ITS | Clinical Summary ---
Author Organization [address] [facility] Address [address] [place] [address] Phone Care Team Providers Care Television Presenter Name Role Phone Markos James MD Primary Care Provider [phone] Allergies Active Allergy Reactions Criticality Noted Date [...] (PROTONIX) 40 mg EC tablet 09/25/2023 Active Surgical History Surgery Date Site/Laterality Comments HAND [...] 01/08/2024 3:03 PM EDT Plan of Treatment Health Maintenance Due Date Last Done Comments DTaP,Tdap,and Td Vaccines (1 - Tdap) 02/08/1964 Zoster Vaccines (1 of 2) 02/08/1964 Depression Screening 08/05/2022 Falls Risk Assessment 08/05/2022 Medicare Annual Wellness Visit 08/05/2022 Osteoporosis Screening (Bone Density Screening) 08/05/2022 Social Influencers of Health Screening 08/05/2022 COVID-19 Vaccine (8 - Moderna risk season) 2024 05/27/2024, 06/18/2023, 05/18/2022, Additional history exists Cholesterol Screening (Lipid Panel) 09/18/2028 09/18/2023 Pneumococcal Vaccine: 50+ Years Completed 10/07/2018, 01/15/2017 RSV Immunization Adult Patients Completed 07/14/2023 Influenza Vaccine Completed 06/11/2024, , 06/07/2022, Additional [...] on patient's age to complete this topic Insurance MEDICARE [facility] Care Teams Television Presenter Relationship Specialty Start Date End Date Markos James MD [address] [place] [address] [address] [facility] [place] [address] PCP - General 01/08/24
--- OUTSIDE RECORDS SUMMARY | 2025-01-05 10:09 | XMS_ITS | Encounter Summary ---
Author Organization [employer] Address [address] [facility] [address] 7[address] [place] [address] Care Team Providers Care Maintenance Worker Name Role Phone Unavailable Primary Care [...]
== END 2025-01-05 09:25 | disposition home or self-care (01) ==
LOC: HO.MAMMO 09:24
PROVIDERS: PCP Internal Medicine; Visit Provider Internal Medicine
DX: Z12.31 Encounter for screening mammogram for malignant neoplasm of breast (principal)
CPT/HCPCS: 77063; 77067

== ENCOUNTER → 2025-01-05 09:45 | Outpatient (BNV) | payer MEDICARE, SELFPAY | PROVIDERS: PCP Internal Medicine; Visit Provider Internal Medicine | DX: Z12.31 Encounter for screening mammogram for malignant neoplasm of breast (principal) | CPT/HCPCS: 77063; 77067 ==

== ENCOUNTER 2025-02-03 13:52 | Outpatient (AMB) | payer MEDICARE, SELFPAY ==
[2025-02-03 14:02] VITALS: BP 124/60; PULSE 67; O2SAT 99; BMI 29.6
--- NOTE | 2025-02-03 14:02 | A.OFFPC_ITS ---
Vital Signs 02/03/25 14:02 Height 5 ft 3 in Weight 167 lb BMI 29.6 BP 124/60 Blood Pressure Location Lt brachial Position Sitting Pulse 67 Pulse Source Pulse Oximeter Pulse Oximetry (%) 99 Oxygen Delivery Method Room Air Intake Visit Reasons: f/u COPD District Director Required: No Accompanied by: Self / Same As Patient Allergies oxycodone [From OXYCONTIN] Allergy (Mild, Verified 02/03/25 14:02) PRURITUS, severe itching adhesive tape Allergy (Unknown, Verified 02/03/25 14:02) BLISTERS cephalexin [Keflex] Allergy (Unknown, Verified 02/03/25 14:02) hives doxycycline [DOXYCYCLINE] Adverse Reaction (Intermediate, Verified 02/03/25 14:02) STOMACH PAINS Medication List - Last Reconciled 02/03/25 by Markos James MD acetaminophen (Tylenol Extra Strength) 1,000 mg PO Q6H PRN albuterol sulfate 90 mcg/actuation (Ventolin HFA) 2 puffs inhalation Q4-6H PRN 30 days amlodipine 5 mg PO DAILY ascorbate calcium (vitamin C) 500 mg PO DAILY atorvastatin 20 mg PO DAILY nlrtpgflzz-jxumjqdndjwkz-zysd 50-325-40 mg 1 tab PO Q6H PRN cholecalciferol (vitamin D3) 50 mcg PO DAILY desvenlafaxine succinate ER 25 mg PO DAILY diphenoxylate-atropine 2.5-0.025 mg (Lomotil) 1 tab PO BEDTIME PRN gabapentin 100 mg PO TID 90 days lorazepam 0.5 mg PO BID PRN losartan 100 mg PO DAILY 90 days mecobalamin (vitamin B12) (B12 Active) 1,000 mcg PO DAILY melatonin 3 mg PO BEDTIME PRN meloxicam 15 mg PO DAILY metoprolol succinate ER 50 mg PO DAILY 90 days multivitamin 1 tab PO DAILY [probiotic PO] triamcinolone acetonide (Nasacort Allergy) 1 spray intranasal DAILY Tobacco use date assessed: 02/03/25 Fall risk assessment: No Falls in past year Last assessed Fall Risk: 02/03/25 Dental Screening Dental Screen Date: 02/03/25 Did you have a dental visit in the last 12 months?: Yes Did you have a dental problem in the last 6 months where you did not have access to dental care?: No Was dental information given to patient?: Patient has dentist [facility] Medical History (Updated 02/03/25 @ 14:47 by Markos James MD) Osteoarthritis of knees, bilateral Abnormal finding on MRI of brain Long-term current use of intravenous immunoglobulin (IVIG) Tinea pedis Urinary incontinence, urge Urinary frequency Urinary urgency TSH elevation Nasal congestion Hospital discharge follow-up Sepsis Pneumonia Acute exacerbation of chronic obstructive pulmonary disease Chronic cough Generalized anxiety disorder Right low back pain Hand pain Dysphagia, pharyngoesophageal phase Costochondritis Dyspnea on exertion COPD (chronic obstructive pulmonary disease) Chronic diarrhea Anxiety Cataract Bladder cancer GERD (gastroesophageal reflux disease) Asthma IBS (irritable bowel syndrome) Hypertension Multiple myeloma Surgical History History of oral surgery History of esophagogastroduodenoscopy (EGD) H/O colonoscopy History of eyelid surgery History of tonsillectomy H/O wrist surgery H/O eye surgery History of arthroscopy of both knees H/O rotator cuff surgery H/O cardiac catheterization Family History Father Pancreatic cancer Diabetes Stroke Mother No problems noted. Sister Diabetes Son No problems noted. Social History Household Members: Spouse Housing: Condominium Are you a primary care team coordinator scheduler to a significant other at home: No Do you presently have visiting nurse or other home services: Yes ([facility]) Alcohol intake: never Patient Tobacco Use Status: Former Tobacco user Tobacco use type: Cigarette e-Cigarette/Vaping Use: Never Used Second Hand Smoke Exposure: No Advance Directives Date on File: 07/20/23 service: No Current occupational status: retired Cognitive needs: No Hearing needs: No Vision needs: Yes (Glasses) Questionnaire PHQ-9 Over the last 2 weeks, how often have you been bothered by any of the following problems? 1. Little interest or pleasure in doing things: not at all 2. Feeling down, depressed, or hopeless: not at all 3. Trouble falling or staying asleep, or sleeping too much: not at all 4. Feeling tired or having little energy: not at all 5. Poor appetite or overeating: not at all 6. Feeling bad about yourself - or that you are a failure or have let yourself or your family down: not at all 7. Trouble concentrating on things, such as reading the newspaper or watching television: not at all 8. Moving or speaking so slowly that other people could have noticed. Or the opposite - being so fidgety or restless that you have been moving around a lot more than usual: not at all 9. Thoughts that you would be better off or of hurting yourself in some way: not at all Total score: 0 Depression Screening Interpretation: Negative Depression Screening Done: Yes Source: Developed by Drs. Ian Moss, Moni Maharaj, Usama Garces and colleagues, with an educational jaylon from [employer]. Thrive Questionnaire Date Thrive assessed: 02/03/25 I am a: Patient What is your living situation today?: I have a steady place to live Within the past 12 months, did the food you bought not last and you didn't have the money to get more?: Never true Within the past 12 months, did you worry whether your food would run out before you got money to buy more?: Never true Do you have trouble paying for medicines?: No Do you have trouble getting transportation to medical appointments?: No Do you have trouble paying your heating and electricity bill?: No Do you have trouble taking care of your child, family member or friend?: No Do you have trouble with day-to-day activities such as bathing, preparing meals, shopping, managing finances, etc.?: No Are you currently unemployed and looking for a job?: No Are you interested in more education?: No Please select the resources that you would like help with: None Currently or been in a relationship where the following occur: No concerns reported THRIVE Score: 0 AUDIT C Alcohol Use Questionnaire (AUDIT-C) 1. How often do you have a drink containing alcohol?: Never 3. How often do you have six or more drinks on one occasion?: Never Total Score: 0 JAMAICA-7 AMB Questionnaire JAMAICA-7 Date JAMAICA - 7 assessed: 02/03/25 Feeling nervous, anxious, or on edge: 0 = Not at all Not being able to stop or control worryin = Not at all Worrying too much about different things: 0 = Not at all Trouble relaxin = Not at all Being so restless that it is hard to sit still: 0 = Not at all Becoming easily annoyed or irritable: 0 = Not at all Feeling afraid as if something awful might happen: 0 = Not at all Total J[place]-7 score (0-4 normal; 5-9 mild; 10-14 moderate; 15-21 severe): 0 Source: Developed by Drs. Ian Moss, Moni Maharaj, Usama Garces and colleagues, with an educational jaylon from [employer]. Physical exam (Primary Care) Vital Signs: Last Vital Signs Pulse 67 02/03/25 14:02 BP 124/60 02/03/25 14:02 Pulse Ox 99 02/03/25 14:02 Oxygen Delivery Method Room Air 02/03/25 14:02 BMI result Body Mass Index 29.6 Tobacco/Smoking Status: Tobacco use Status Tobacco use date assessed 02/03/25 02/03/25 14:04 Patient Tobacco Use Status Former Tobacco user 02/03/25 14:04 Tobacco use type Cigarette 02/03/25 14:04 e-Cigarette/Vaping Use Never Used 02/03/25 14:04 PHQ-9: PHQ-9 Score PHQ-9: Total score 0 02/03/25 14:34 Depression Screening Interpretation: Negative Thrive Assessment: Date of Thrive Assessment Date Thrive assessed 02/03/25 02/03/25 14:04 Currently or been in a relationship where the following occur: No concerns reported Const General: alert; No acute distress Eyes Conjunctivae: conjunctivae normal Resp Auscultation: clear to auscultation bilaterally Cardio Rate: regular rate Rhythm: regular rhythm GI Inspection: Yes normal to inspection Extrem General: Yes normal to inspection and No edema Coding Level of Care Code Est Pt Level 4 (43131) Complex EM visit Add On G2211 Diagnoses Multiple myeloma, remission status unspecified C90.00 Multiple myeloma remission status: unspecified COPD (chronic obstructive pulmonary disease) J44.9 Essential hypertension I10 Hypertension type: essential hypertension Gastroesophageal reflux disease without esophagitis K21.9 Esophagitis presence: without esophagitis Generalized anxiety disorder F41.1 Cholelithiasis K80.20 Bladder cancer C67.9 Diarrhea R19.7 Peripheral neuropathy G62.9 Blocked ear H93.8X9 Assessment & Plan Assessment & Plan (1) Multiple myeloma: Comment: Most of her complaints, her pertaining to her multiple myeloma. She is relatively happy that the current med ( Velcade ) is working better. Code(s): C90.00 - Multiple myeloma not having achieved remission Category: Medical Qualifiers: Multiple myeloma remission status: unspecified Qualified Code(s): C90.00 - Multiple myeloma not having achieved remission Plan: Continues to follow-up with Hematology-Oncology here as well as in [facility] continue with monitoring (2) COPD (chronic obstructive pulmonary disease): Comment: She does have evidence of mild to moderate degree of CHRONIC OBSTRUCTIVE PULMONARY DISEASE, in addition to symptoms of mild bronchial asthma. It is relatively stable and at present she is not using Symbicort, she has not noticed any difference from before. She does have albuterol HFA on hand, NEEDS A NEW SCRIPT . Code(s): J44.9 - Chronic obstructive pulmonary disease, unspecified Category: Medical Plan: Patient has followed up with Pulmonary on albuterol inhaler as needed Continue with blood pressure medication. Decrease salt intake and exercise (3) Hypertension: Code(s): I10 - Essential (primary) hypertension Category: Medical Qualifiers: Hypertension type: essential hypertension Qualified Code(s): I10 - Essential (primary) hypertension Plan: Continue with blood pressure medication. Decrease salt intake and exercise on losartan 100 mg once a day metoprolol 50 mg once a day (4) GERD (gastroesophageal reflux disease): Code(s): K21.9 - Gastro-esophageal reflux disease without esophagitis Category: Medical Qualifiers: Esophagitis presence: without esophagitis Qualified Code(s): K21.9 - Gastro-esophageal reflux disease without esophagitis Plan: Avoid the foods that causes that usually spicy foods, tomato products, juices, coffee, soda and foods that your sensitive to. After eating do not lie down, allow 3-4 hours before in lie down. And keep the head of bed above 30 degrees to avoid the acid from going up. (5) Generalized anxiety disorder: Code(s): F41.1 - Generalized anxiety disorder Category: Medical Plan: Discussion on counseling presently on that is venlafaxine and lorazepam (6) Cholelithiasis: Code(s): K80.20 - Calculus of gallbladder without cholecystitis without obstruction Category: Medical Plan: Low-fat diet (7) Bladder cancer: Comment: 2006 BCG Code(s): C67.9 - Malignant neoplasm of bladder, unspecified Category: Medical Plan: Continue to follow-up with urology (8) Diarrhea: Code(s): R19.7 - Diarrhea, unspecified Category: Medical Plan: patient follow up with design studio consultant. awaiting IVIG (9) Peripheral neuropathy: Code(s): G62.9 - Polyneuropathy, unspecified Category: Medical Plan: trial of gabapentin 300 mg QHS (10) Blocked ear: Code(s): H93.8X9 - Other specified disorders of ear, unspecified ear Category: Medical Plan: referral to Dr. Melo Plan History of Present Illness The patient is an 79-year-old female presenting for regular follow-up of multiple chronic conditions, including multiple myeloma, COPD, hypercholesterolemia, generalized anxiety disorder, and others. She has been managing multiple myeloma, [employer] Stage 1 with supportive treatments and follows up with hematology/oncology specialists, reporting stable condition with prior treatment history including Revlimid, contributing to persistent di arrhea. The patient testifies exacerbation of diarrhea correlating with a recent COVID-19 infection, whereupon she received Paxlovid treatment. Concerns of biliary dyskinesia have been indicated by nuclear medicine studies showing non- significant gallbladder emptying without inflammatory signs, proceeding with cautious monitoring. She experiences persistent joint aches which are partly attributed to lumbar spondylosis, and persistent neuropathy likely exacerbated by previous chemotherapy, which negatively affects her mobility. Her COPD, managed with albuterol and intermittent use of Symbicort, remains mild to moderate. Additionally, she has sigmoid diverticulosis noted in a prior CT scan. Regular screenings and health maintenance measures such as a tetanus shot uptake demonstrate proactive health monitoring. Health Maintenance - Tetanus vaccination administered in December 2024 - Regular mammograms, last completed in January 2025 - Recommendations for scheduled vaccines: Shingrix, flu, and COVID vaccines - Suggestions to begin a probiotics regimen for improved gastrointestinal health, starting January 30 - Dietary adjustment advice to increase cholesterol medication to 2 g every morning and 1 g in the evening - Encourage low-fat diet and adequate hydration - Ensure regular utilization of established follow-ups with pulmonology, specialized oncology, and urology services Social History - The patient identifies limitations in mobility due to neuropathy and uses a rollator for longer distances; avoids canes due to arthritic pain - Reports sensitivity to medications; initiates probiotics to manage diarrhea symptoms - Challenges in navigation and communication, necessitating support and follow- up in care coordination - Has support systems and informal trackers for health symptoms, reflecting organized health management practices Review of Systems - Gastrointestinal: Reports diarrhea, loose stools; denies current fungal infection in mouth - Musculoskeletal: Reports ongoing joint pain, peripheral neuropathy, and leg pain with sensory abnormalities - Respiratory: Denies recent significant respiratory symptoms; mild to moderate COPD - Neurological: Reports calf pain, neuropathy - Cardiovascular: Denies chest pain, regular monitoring of hypertension - Genitourinary: Follows-up on bladder cancer management, deny significant urological symptoms - General: Reports sluggishness and fatigue post recent COVID-19 infection Physical Exam Results - Labs: Blood work exhibits normal blood count with mild thrombocytopenia, electrolytes, renal, and liver functions within normal limits - Imaging: CT scan of abdomen and pelvis showing sigmoid diverticulosis without diverticulitis; nuclear medicine tests revealing no significant gallbladder emptying Plan For the management of her conditions, continued close monitoring and coordinated care with her specialized teams in hematology, oncology, and urology will proceed to ensure stable management of her multiple myeloma and bladder cancer. The scheduled increase in her cholesterol medication is expected to help manage her cardiovascular risk factors. Implementation of a probiotics routine and pancreatic enzymes is to alleviate ongoing diarrhea symptoms. She will maintain her use of gabapentin, with adjusted dosing adapted for nocturnal symptom relief. Renewed emphasis on scheduled vaccinations and proactive health m onitoring stands, involving immunizations and necessary follow-ups. She will continue with non-invasive approaches regarding her gallbladder dysfunction and diverticulosis, aligning with dietary and hydration targets. A gentle reminder for adherence to her medication regimen to combat exacerbations due to her described sensitivity is stressed. Patient was informed and verbally consented to the use of an ambient scribe for clinic note documentation during this visit. Discussion Notes During the visit, I reviewed with the patient her chronic and complex health conditions, including multiple myeloma management, the importance of medication adherence, and the indication for ongoing collaboration with her hematological, oncological, and urological specialists. A focus was placed on her respiratory management plan with adjunct treatments for COPD and reviewed her recent labs and images to reinforce current care trajectories. I informed her about the rationale for dose adjustments in gabapentin to lessen calf pain and leg discomfort at night, integrating consensus of current condition and anticipated benefits. We discussed increasing her cholesterol regimen to optimize cardiovascular risk management. We navigated vaccination timelines for Shingrix, flu, and a booster COVID-19 vaccine to ensure adequate protection, considering potential post-vaccination reactions. The necessity to avoid invasive gallbladder procedures, given the existing test results, was reaffirmed. Lastly, I equipped her with anticipatory guidance on symptoms warranting expedited care, emphasizing consistency of hydration and dietary practices. Patient Instructions - Continue with gabapentin at night for leg pain; report any adverse effects. - Increase cholesterol medication to 2 g AM and 1 g PM. - Ensure stable use of albuterol as needed; adhere to COPD management plan. - Initiate probiotics routine and monitor for improvements in gastrointestinal symptoms. - Schedule vaccinations: Shingrix, flu, COVID booster. - Maintain hydration and follow a low-fat diet. - Watch for persistent or worsening symptoms and contact as needed. - Return for follow-up in three months; report any urgent health changes earlier. - Utilize supportive devices cautiously to prevent falls. Orders: Referrals Ear/Nose/Throat Referral H93.8X9 - Other specified disorders of ear, unspecified ear Medications: Refilled meloxicam 15 mg PO DAILY 90 tabs 1RF
--- OUTSIDE RECORDS SUMMARY | 2025-02-03 15:36 | XMS_ITS | Encounter Summary ---
Author Organization [employer] Address [address] [facility] [address] [place] [address] Care Team Providers Care Tire Mold Tester Name Role Phone Unavailable Primary Care Provider [...]
== END 2025-02-03 14:57 | disposition home or self-care (01) ==
LOC: HO.HMCH 13:53
PROVIDERS: PCP Internal Medicine; Visit Provider Internal Medicine
DX: J44.9 Chronic obstructive pulmonary disease, unspecified (principal); C90.00 Multiple myeloma not having achieved remission; C67.9 Malignant neoplasm of bladder, unspecified; I10 Essential (primary) hypertension; K21.9 Gastro-esophageal reflux disease without esophagitis; F41.1 Generalized anxiety disorder; K80.20 Calculus of gallbladder without cholecystitis without obstruction; R19.7 Diarrhea, unspecified; G62.9 Polyneuropathy, unspecified

== ENCOUNTER → 2025-02-03 13:52 | Outpatient (BNVA) | payer MEDICARE, SELFPAY | PROVIDERS: PCP Internal Medicine; Visit Provider Internal Medicine | DX: C90.00 Multiple myeloma not having achieved remission (principal); J44.9 Chronic obstructive pulmonary disease, unspecified; I10 Essential (primary) hypertension; K21.9 Gastro-esophageal reflux disease without esophagitis; F41.1 Generalized anxiety disorder; K80.20 Calculus of gallbladder without cholecystitis without obstruction; C67.9 Malignant neoplasm of bladder, unspecified; R19.7 Diarrhea, unspecified; G62.9 Polyneuropathy, unspecified; H93.8X9 Other specified disorders of ear, unspecified ear; Z87.891 Personal history of nicotine dependence | CPT/HCPCS: 99212 ==

== ENCOUNTER 2025-02-18 10:47 | Outpatient (AMB) | payer MEDICARE, SELFPAY ==
--- NOTE | 2025-02-18 10:56 | MHC.OFFVIS ---
Vital Signs 02/18/25 10:57 Height 5 ft 2.5 in Weight 166 lb BMI 29.9 BP 148/55 H Blood Pressure Location Lt brachial Position Sitting Pulse 55 Pulse Oximetry (%) 97 Oxygen Delivery Method Room Air Intake Visit Reasons: abdominalpain and diarrhea Intake Note: Patient follow up for Cholelithiasis, lab and Abd and pelvis US result. Patient cc: diarrhea and some swallowing discomfort, denies any other GI issues. Publications Editor Required: No Accompanied by: Self / Same As Patient Allergies oxycodone (From OXYCONTIN) Allergy (Mild, Verified 02/18/25 10:55) PRURITUS, severe itching adhesive tape Allergy (Unknown, Verified 02/18/25 10:55) BLISTERS cephalexin (Keflex) Allergy (Unknown, Verified 02/18/25 10:55) hives doxycycline (DOXYCYCLINE) Adverse Reaction (Intermediate, Verified 02/18/25 10:55) STOMACH PAINS Medication List - Last Reconciled 02/18/25 by Trena Dotson MD acetaminophen (Tylenol Extra Strength) 1,000 mg PO Q6H PRN albuterol sulfate 90 mcg/actuation (Ventolin HFA) 2 puffs inhalation Q4-6H PRN 30 days amlodipine 5 mg PO DAILY ascorbate calcium (vitamin C) 500 mg PO DAILY atorvastatin 20 mg PO DAILY sskgopqfbq-huniodiqcvdbx-kclz 50-325-40 mg 1 tab PO Q6H PRN cholecalciferol (vitamin D3) 50 mcg PO DAILY desvenlafaxine succinate ER 25 mg PO DAILY diphenoxylate-atropine 2.5-0.025 mg (Lomotil) 1 tab PO BEDTIME PRN gabapentin 100 mg PO TID 90 days lorazepam 0.5 mg PO BID PRN losartan 100 mg PO DAILY 90 days mecobalamin (vitamin B12) (B12 Active) 1,000 mcg PO DAILY melatonin 3 mg PO BEDTIME PRN meloxicam 15 mg PO DAILY metoprolol succinate ER 50 mg PO DAILY 90 days multivitamin 1 tab PO DAILY [probiotic PO] triamcinolone acetonide (Nasacort Allergy) 1 spray intranasal DAILY HPI HPI abdominalpain and diarrhea: Details: FU GI clinic visit for this 80-year-old female for FU of GERD and IBS. She is followed by Dr Muniz in heme-onc for multiple myeloma. TODAYS VISIT: Patient follow up for Cholelithiasis, lab and Abd and pelvis US result. Patient cc: diarrhea and some swallowing discomfort, Complains of generalized aches and pains. Complains of back and rt flank pain. Had COVID and was treated with Paxlovid and had a lot of stomach pains It disrupted the schedule - caused diarrhea and took imodium and peptobismol. Still has loose and mushy stools - 2-4 times a day Pain started on 10/15/24 - felt like a pressure and aching. Today no pain and feels sore on touching. Denies nausea, vomiting, change in appetite, fever or chills No change with moving and unsure if applying a heating pad helps. PAST VISIT: No pain today and notes pain when she pushes on it 10/22/24 Pt's sent the following message via pt's portal: My has been experiencing pain on the right side of her abdomen since about sunday ,Oct. While the pain is not extreme, it is causing her concern as it has not diminished. She very much wants to see you before the HIDA-scan, now scheduled for 03 November. On 10/23/24 @ 19:02 Trena Dotson Wrote To Trena Dotson (2) Pt complains of a constant pain in her right groin since Oct 15. Taking Pantoprazole for the past 2 weeks without any change in upper abdominal pain. Pain can be grabbing once in a while and usually 4-5/10 May not feel it if she is sitting and notes it when she gets up. Pt denies fever, chills or sweating. Has oral surgery on Sunday Patient 4 weeks follow up for Cholelithiasis, US results. Patient cc: abdominal pain after eating, swallowing problems, acid reflex/diarrhea on and off. No chemo for a year now Abd US results reviewed. Notes 5/10 epigastric pain after she eats - almost every day Pain is like pressure and lasts for a few minutes and resolves spontaneously Denies radiation of the pain to the back or shoulder. Pt notes occasional sweating and denies, nausea, vomiting, fever, chills Sometimes she takes Mylanta with relief of pain. Occasional dysphagia. Notes RUQ pain if she moves or twists - attributes to rib pain. Diarrhea is better - usually 2-3 BMs a day Sometimes has lower abd - relieved by BM PAST VISITS: She was sick the whole month of Aug and diagnosed with RSV. Some days she had diarrhea from morning till night. Prescribed amoxicillin and had constant diarrhea with incontinence Decreased appetite and has lost a few lbs. After she eats, she has upper abd pain intermittently (usually half an hour or later) - feels like pressure Sometimes she takes peptobismol or place ice or cold pack on it with relief - does not feel like an upset stomach Eyes are bad when stomach is bad - diagnosed with dry eyes. PAST VISITS: Continues to have dysphagia - usually with solid food. Tries to eat more slowly Has cut back on foods due to IBS Has 3 normal BMs a week - has diarrhea rest of the time with 3-4 BMs in a row. Has not had chemo since September. Trying to get rid of sciatica and has to use a walker and doing PT and Laser light PAST VISITS: CC: She is to start CAR T cell therapy on Sunday at [facility] in [place]. Her T cells will be removed and reinjected after 5 weeks to kill the cancer cells Had to cancel her vacation since she got influenza infection on the day she was to travel Complains of post prandial upper abdominal pain Trying to eat smaller portions more slowly Diarrhea with 3 to 8 BMs per day. Uses imodium, pepto-bismol and Lomotil Trying to drink a lot of liquids and electrolytes Has been having intermittent reddish orange/rust colored stool all week. Denies noticing any blood. Diarrhea has not been too bad this week - had a bout on 05/07/23 Three episodes on 05/10/23. Notes post prandial abdominal pain and bloating intermittently Complains of postprandial abdominal pain/pressure and unsure what to eat. Stomach does not feel good. Continues to have dysphagia and can have regurgitation of food into her throat (new problem) Intermittent heartburn and takes peptobismol or TUMS Continues to have loose stools - not always diarrhea Stopped writing down what she eats since she is unable to find a pattern. Takes 2 tab of immodium when she has increased diarrhea and takes another 2 tablets if she continues to have diarrhea. Takes Tramadol less than a few times a month and not daily. Decreased her treatment Velcade (Sunday treatment was stopped) due to hair loss. Has mets to the back and spine BMs are rarely formed - either mush or liquid, and sometimes orange in color and rarely diarrhea. Wt gain despite eating less - eats until she feels full. Does not eat big portions. Started taking a nutrition shake. Drinks a lot of water. Uses a heat pack on the stomach since it hurts. Notes urgency after she eats. Keeps a journal and is unable to find a pattern Sometimes she notes a little blood on the side of the stools Took some ice cream and had diarrhea after eating it Takes Lactose free milk Rarely has trouble going. PAST VISITS: Hospitalized in 03/2022 with COPD and pneumonia Notes intermittent cough usually in the am. On a steroid taper at present. Continues to have dysphagia with solids and large pills. Diarrhea is not too bad. Had an episode of gelatinous stool on 04/07/22 after she went home from the hospital Has 1 to 5 BMs a day. Takes Colestipol and 1 imodiun when she has diarrhea. Unable to identify precipitating foods. Avoids spicy foods Getting treatment for MM every 2 weeks followed by dexamethasone on Sun and . Seeing her Chiropractor for aches and pains - which is helping Stopped Creon since it was causing abdominal cramps. Notes diarrhea 2 -3 times a week - not related to treatment. Not taking colestipol due to concern for constipation. Intermittent rectal bleeding when she is constipated which she attributes to hemorrhoids. Takes Tramadol for body pains. Keeping a journal of diet and BMs Sometimes certain foods won't bother her and sometimes its a disaster Notes worsening dysphagia to liquids and solids - denies regurgitation with dysphagia episodes. Dysphagia is more often with liquids than solids. Denies coughing spells with dysphagia Broke her tooth and had nausea? due to enamel Starting to have a little problem with constipation (none since 2017) Still has intermittent diarrhea and is more manageable - taking imodium, Tums and colestipol Can have upto 7 BMs a day. Getting sinus DIEGO's. Kept a dairy of her BMs. Continues to have loose and liquid BMs. BMs are broken into lumps and bumps Eating less and gaining wt. Does not know what to eat since a lot of foods bother her Avoids salads and broccoli Stool studies were reviewed. Notes fat in the stool intermittently Continues to have intermittent diarrhea. On Revlimid (Lenalidomide)every 3 weeks - rest x 1 week - unsure if she has incrased diarrhea while on Revlimid. Can have lower abd pain, or pain can move up into the epigastrium. Has been noticing some gas over the past month. Biggest issue is her sleep since she has to get up to urinate. Her bowels do not interrupt her sleep. Can have 1-2 and upto 5 Bms a day - upto 7 times once. Concerned she may be loosing her nutrients. Takes Colestipol, imodium or peptobismol which works and diarrhea can come right back TUMS does not help. Diagnosed with Multiple Myeloma 5 yrs ago when she noted worsening fatigue. Takes Pantoprazole at night - advised by Dr Bojorquez. Takes imodium for the diarrhea. Sometimes takes peptobismol, meenakshi seltzer or TUMS for the diarrhea. She is taking colestipol once daily and takes a 2nd dose if diarrhea is PFSH Medical History (Updated 02/16/25 @ 13:07 by Debra Muniz MD) Osteoarthritis of knees, bilateral Abnormal finding on MRI of brain Long-term current use of intravenous immunoglobulin (IVIG) Tinea pedis Urinary incontinence, urge Urinary frequency Urinary urgency TSH elevation Nasal congestion Hospital discharge follow-up Sepsis Pneumonia Acute exacerbation of chronic obstructive pulmonary disease Chronic cough Generalized anxiety disorder Right low back pain Hand pain Dysphagia, pharyngoesophageal phase Costochondritis Dyspnea on exertion COPD (chronic obstructive pulmonary disease) Chronic diarrhea Anxiety Cataract Bladder cancer GERD (gastroesophageal reflux disease) Asthma IBS (irritable bowel syndrome) Hypertension Multiple myeloma Surgical History History of oral surgery History of esophagogastroduodenoscopy (EGD) H/O colonoscopy History of eyelid surgery History of tonsillectomy H/O wrist surgery H/O eye surgery History of arthroscopy of both knees H/O rotator cuff surgery H/O cardiac catheterization Family History Father Pancreatic cancer Diabetes Stroke Mother No problems noted. Sister Diabetes Son No problems noted. Social History Household Members: Spouse Housing: Condominium Are you a primary palliative care coordinator to a significant other at home: No Do you presently have visiting nurse or other home services: Yes ([facility]) Alcohol intake: never Patient Tobacco Use Status: Former Tobacco user Tobacco use type: Cigarette e-Cigarette/Vaping Use: Never Used Second Hand Smoke Exposure: No Advance Directives Date on File: 07/20/23 service: No Current occupational status: retired Cognitive needs: No Hearing needs: No Vision needs: Yes (Glasses) Review of Systems Const All systems reviewed & are unremarkable except as noted in HPI and below Physical Exam Vital Signs: Last Vital Signs Pulse 55 02/18/25 10:57 BP 148/55 H 02/18/25 10:57 Pulse Ox 97 02/18/25 10:57 Oxygen Delivery Method Room Air 02/18/25 10:57 BMI result Body Mass Index 29.9 Const General: healthy appearing and no acute distress Nutritional Appearance: overweight Orientation/consciousness: patient oriented x3 Limitations: no limitations HEENT Head: Yes normal to inspection Ears: hearing grossly normal bilaterally Eyes Sclerae: sclerae normal Pupils: Equal, round and reactive pupils present Neck Neck: Yes normal visual inspection Chest Chest palpation & inspection: normal inspection of the chest Resp Effort & Inspection: normal respiratory effort Auscultation: clear to auscultation bilaterally Cardio Palpation: normal PMI Rate: regular rate Rhythm: regular rhythm Heart sounds: S1 normal heart sound present, S2 normal heart sound present and no murmurs GI Palpation (GI): Soft to palpation, nontender and No hepatosplenomegaly present Auscultation: normal bowel sounds Rectal Exam - Female: deferred Skin General skin exam: no rashes or lesions noted Neuro General: patient oriented x3, gait normal and moves all extremities Cranial nerves: Yes Equal, round and reactive pupils present Psych Appearance: grossly normal Mental Status: mental status grossly normal Assessment & Plan Assessment & Plan (1) GERD (gastroesophageal reflux disease): Code(s): K21.9 - Gastro-esophageal reflux disease without esophagitis Category: Medical Qualifiers: Esophagitis presence: without esophagitis Qualified Code(s): K21.9 - Gastro-esophageal reflux disease without esophagitis (2) Chronic diarrhea: Code(s): K52.9 - Noninfective gastroenteritis and colitis, unspecified Category: Medical (3) Cholelithiasis: Code(s): K80.20 - Calculus of gallbladder without cholecystitis without obstruction Category: Medical (4) Postprandial epigastric pain: Code(s): R10.13 - Epigastric pain Category: Medical Plan 80 YF with hypertension, asthma, anxiety disorder and multiple myeloma followed in GI for GERD and chronic diarrhea of unclear etiology. Past evaluation with colonoscopy and random biopsies were normal, celiac serologies were negative, stool wbc and culture negative, C Diff was equivocal Stool fat?and pancreatic elastase was normal. Pt was taking Revlimid (Lenalidomide) every 3 weeks for? multiple myeloma which can be associated with diarrhea and 39-49% of patient, abdominal pain in 10-12%, nausea and 11-30% and decreased appetite in 14% of patients.? ? Patient discontinued Revlimid without change in diarrhea. She was started on daratumumab faspro on 07/05. She has so far been tolerating it very well. She had last couple of treatments while she was vacationing in [place], last year, (she received week 7 on 08/23 and week 8 8 on 08/30 [address] care [address] Schuyler Hicks, at [facility] in [place].) Pamelist was added for MM on 02/14/22 Pt was advised to continue taking imodium or peptobismol prn for diarrhea. She was given a trail of pancreatic enzymes (although stool pancreatic elastase was normal) and stopped taking it since it was associated with abdominal cramps A barium swallow showed?moderate dysmotility without stricture or extrinsic mass lesion. No hiatal hernia or gastroesophageal reflux was noted. 05/09/23 Abd US showed cholelithiasis and fatty liver 05/01/[address] Muniz (Oncology): She has been referred for physical therapy to strengthen her legs. l advised gentle therapy. That is helping a lot. She will continue the Decadron taper. She will go down to 4 mg. I will follow up on the free light chain ratio, monthly to gauge her response. She will continue on the Denosumab, q 6 months. 09/21/23 She is to start BATRES T cell therapy on 09/21/23 at [facility] in [place]. Her T cells will be removed and re-injected after 5 weeks to kill the cancer cells Complains of post prandial upper abdominal pain Diarrhea with 3 to 8 BMs per day. Pt advised to increase pantoprazole to twice a day. She will be scheduled for an EGD after BATRES T cell therapy is complete 02/2024 EGD was performed and results as noted 10/09/24 Pt advised to take Pantoprazole (has some at home) x 2 weeks and continue if it is helpful HIDA scan 11/[address] scan for evaluation of RUQ and RLQ pain showed: 1. Sigmoid diverticulosis without evidence of diverticulitis. 2. Cholelithiasis. 02/18/25 Had COVID and was treated with Paxlovid and had a lot of stomach pains It disrupted the schedule - caused diarrhea and took imodium and peptobismol. Still has loose and mushy stools - 2-4 times a day Pt advised to check fecal calprotectin to rule out colon inflammation (Of note stool lactoferrin was negative in the past) FU in 6 months - scheduled 08/20/2025 Orders: Orders Transglutaminase IgA Today K52.9 - Noninfective gastroenteritis and colitis, unspecified Calprotectin, Fecal Today K52.9 - Noninfective gastroenteritis and colitis, unspecified Coding Level of Care Code Est Pt Level 4 (31240) Diagnoses Gastroesophageal reflux disease without esophagitis K21.9 Esophagitis presence: without esophagitis Chronic diarrhea K52.9 Cholelithiasis K80.20 Postprandial epigastric pain R10.13 Time Spent (min) 22
[2025-02-18 10:57] VITALS: BP 148/55; PULSE 55; O2SAT 97; BMI 29.9
--- OUTSIDE RECORDS SUMMARY | 2025-02-18 12:23 | XMS_ITS | Encounter Summary ---
Author Organization [employer] Address [address] [place] [address] Care Team Providers Care Retail Brand Ambassador Name Role Phone Unavailable Primary Care [...]
== END 2025-02-18 12:55 | disposition home or self-care (01) ==
LOC: HO.HGI 10:48
PROVIDERS: PCP Internal Medicine; Visit Provider Internal Medicine Gastroenterology
DX: K21.9 Gastro-esophageal reflux disease without esophagitis (principal); K52.9 Noninfective gastroenteritis and colitis, unspecified; K80.20 Calculus of gallbladder without cholecystitis without obstruction; R10.13 Epigastric pain
CPT/HCPCS: 99214

== ENCOUNTER → 2025-02-18 10:47 | Outpatient (BNVA) | payer MEDICARE, SELFPAY | PROVIDERS: PCP Internal Medicine; Visit Provider Internal Medicine Gastroenterology | DX: K21.9 Gastro-esophageal reflux disease without esophagitis (principal); K52.9 Noninfective gastroenteritis and colitis, unspecified; K80.20 Calculus of gallbladder without cholecystitis without obstruction; R10.13 Epigastric pain | CPT/HCPCS: 99212 ==

== ENCOUNTER 2025-02-25 15:00 | Outpatient (REF) | payer MEDICARE, SELFPAY ==
[2025-02-25 15:13] LABS: MANUAL DIFF FLAG NO
[2025-02-25 16:06] LABS: Basophils Percent Auto 0.2 % (0-2); Eosinophils Percent Auto 0.2 % (0-4); Hematocrit 36.5 % (37.0-47.0); Hemoglobin 12.2 g/dl (12.0-16.0); Imm Gran Abs Auto 0.08 X10*3/uL (0.00-0.03); Lymphocytes Absolute Auto 0.6 X10*3/uL (1.2-4.9); Lymphocytes Percent Auto 6.8 % (20-40); Mean Corpuscular HGB Conc 33.4 g/dl (31.0-35.0); Mean Corpuscular Hemoglobin 28.7 pg (27.0-33.0); Mean Corpuscular Volume 85.9 fL (80.0-98.0); Mean Platelet Volume 8.8 fL (9.4-12.3); Monocytes Absolute Auto 0.6 X10*3/uL (0.1-1.2); Monocytes Percent Auto 7.1 % (2-11); Neutrophils Percent Auto 84.7 % (45-73); Platelet Count 117 X10*3/uL (160-400); Red Blood Count 4.25 X10*6/uL (4.20-5.50); Red Cell Distribution Width 14.4 % (11.0-16.0); White Blood Count 8.2 X10*3/uL (4.8-10.8)
[2025-02-25 16:22] LABS: Alanine Aminotransferase 28 U/L (0-31); Albumin Level 4.8 g/dL (3.5-5.0); Alkaline Phosphatase 74 U/L (39-117); Anion Gap 14 (12-20); Aspartate Amino Transferase 29 U/L (5-31); Bilirubin Total 0.7 mg/dL (0.0-1.0); Blood Urea Nitrogen 19 mg/dL (9-16); Calcium 10.1 mg/dL (8.4-10.2); Carbon Dioxide 28 mmol/L (22-29); Chloride 107 mmol/L (96-108); Estimated Glomerular Filt Rate > 60; Glucose Random 125 mg/dL (60-115); Potassium 4.9 mmol/L (3.3-5.1); Sodium 144 mmol/L (135-145); Total Protein 6.6 g/dL (6.5-8.0)
--- OUTSIDE RECORDS SUMMARY | 2025-02-25 17:53 | XMS_ITS | Encounter Summary ---
Author Organization [employer] Address [address] [place] [address] Care Team Providers Care Rounding And Backing Machine Operator Name Role Phone Unavailable Primary [...]
[2025-02-26 22:39] LABS: Transglutaminase IgA <1.0 U/mL
== END 2025-02-25 15:01 | disposition home or self-care (01) ==
LOC: HO.LAB 15:00
PROVIDERS: Internal Medicine Medical Oncology; PCP Internal Medicine; Visit Provider Internal Medicine Gastroenterology
DX: K52.9 Noninfective gastroenteritis and colitis, unspecified (principal); C90.00 Multiple myeloma not having achieved remission
CPT/HCPCS: 36415; 80053; 85025; 86364

== ENCOUNTER 2025-03-04 12:49 | Outpatient (AMB) | payer MEDICARE, SELFPAY ==
--- NOTE | 2025-03-04 13:07 | MHC.OFFVIS ---
Vital Signs 03/04/25 13:09 Height 5 ft 2.5 in Weight 166 lb 10.711 oz BMI 30.0 BP 120/60 Blood Pressure Location Lt brachial Position Sitting Pulse 58 Pulse Source Monitor Intake Visit Reasons: 1 yr follow up r/s 01-12-25 Intake Note: 1 yr f/up Drawing Machine Operator Required: No Accompanied by: Self / Same As Patient Allergies oxycodone (From OXYCONTIN) Allergy (Mild, Verified 02/18/25 10:55) PRURITUS, severe itching adhesive tape Allergy (Unknown, Verified 02/18/25 10:55) BLISTERS cephalexin (Keflex) Allergy (Unknown, Verified 02/18/25 10:55) hives doxycycline (DOXYCYCLINE) Adverse Reaction (Intermediate, Verified 02/18/25 10:55) STOMACH PAINS Medication List - Last Reconciled 03/04/25 by Bladimir Mcgee MD acetaminophen (Tylenol Extra Strength) 1,000 mg PO Q6H PRN albuterol sulfate 90 mcg/actuation (Ventolin HFA) 2 puffs inhalation Q4-6H PRN 30 days amlodipine 5 mg PO DAILY ascorbate calcium (vitamin C) 500 mg PO DAILY atorvastatin 20 mg PO DAILY sjkjxdpmdj-jkopwyvbdbvsc-ermw 50-325-40 mg 1 tab PO Q6H PRN cholecalciferol (vitamin D3) 50 mcg PO DAILY desvenlafaxine succinate ER 25 mg PO DAILY diphenoxylate-atropine 2.5-0.025 mg (Lomotil) 1 tab PO BEDTIME PRN gabapentin 100 mg PO TID 90 days lorazepam 0.5 mg PO BID PRN losartan 100 mg PO DAILY 90 days mecobalamin (vitamin B12) (B12 Active) 1,000 mcg PO DAILY melatonin 3 mg PO BEDTIME PRN meloxicam 15 mg PO DAILY metoprolol succinate ER 50 mg PO DAILY 90 days multivitamin 1 tab PO DAILY [probiotic PO] triamcinolone acetonide (Nasacort Allergy) 1 spray intranasal DAILY HPI Comments Details: 80-year-old female here for f/u.. She has background history of multiple myeloma and COPD. She had Lexiscan April 2019. During the test she had bilateral shoulder pain and chest discomfort. She had no EKG changes. Perfusion imaging was normal. Echocardiography from September 2019 reviewed showing normal biventricular function with diastolic dysfunction and elevated filling pressures. After discussion she was to the cardiac catheterization. Her left and right heart catheterization both were normal with no coronary disease or elevated filling pressures at rest. She has recurrent multiple myeloma and has been started on Velcade. She has significant episodes of profuse sweating. She has shortness of breath with activity. She has no chest discomfort. she has lytic bone lesions based on CT scan performed recently. 01/14/24: She returns for follow-up. She is undergoing CAR T-cell therapy in [place]. She is denying any chest pain or shortness of breath. Blood pressure is well controlled. 03/04/2025: She is here for 1 year follow-up. She has been doing well. She underwent car T-cell therapy and had a promising result in her myeloma management since then. She is also getting IVIG. Denying any significant symptoms. Continues to get some atypical chest pains at nighttime but does not get any exertional symptoms during the day. [facility] Medical History Osteoarthritis of knees, bilateral Abnormal finding on MRI of brain Long-term current use of intravenous immunoglobulin (IVIG) Tinea pedis Urinary incontinence, urge Urinary frequency Urinary urgency TSH elevation Nasal congestion Hospital discharge follow-up Sepsis Pneumonia Acute exacerbation of chronic obstructive pulmonary disease Chronic cough Generalized anxiety disorder Right low back pain Hand pain Dysphagia, pharyngoesophageal phase Costochondritis Dyspnea on exertion COPD (chronic obstructive pulmonary disease) Chronic diarrhea Anxiety Cataract Bladder cancer GERD (gastroesophageal reflux disease) Asthma IBS (irritable bowel syndrome) Hypertension Multiple myeloma Surgical History History of oral surgery History of esophagogastroduodenoscopy (EGD) H/O colonoscopy History of eyelid surgery History of tonsillectomy H/O wrist surgery H/O eye surgery History of arthroscopy of both knees H/O rotator cuff surgery H/O cardiac catheterization Family History Father Pancreatic cancer Diabetes Stroke Mother No problems noted. Sister Diabetes Son No problems noted. Social History Household Members: [facility] Are you a primary family day care provider to a significant other at home: No Do you presently have visiting nurse or other home services: Yes (VNA) Alcohol intake: never Patient Tobacco Use Status: Former Tobacco user Tobacco use type: Cigarette e-Cigarette/Vaping Use: Never Used Second Hand Smoke Exposure: No Advance Directives Date on File: 07/20/23 service: No Current occupational status: retired Cognitive needs: No Hearing needs: No Vision needs: Yes (Glasses) Review of Systems Const Denies chills, Denies fatigue, Denies fever(s), Denies frequent falls, Denies weakness, Denies weight gain and Denies weight loss ENT Denies dizziness Card Denies chest pain, Denies leg edema, Denies lightheadedness, Denies palpitations, Denies dyspnea and Denies dyspnea on exertion Resp Denies cough, Denies dyspnea and Denies dyspnea on exertion GI Denies hematochezia Musc Denies abnormal gait, Denies muscle weakness, Denies numbness, Denies radiating pain into limb and Denies tingling Neuro Denies abnormal gait, Denies dizziness, Denies frequent falls, Denies numbness, Denies tingling and Denies weakness Endo Denies fatigue and Denies palpitations Physical Exam Vital Signs: Last Vital Signs Pulse 58 03/04/25 13:09 BP 120/60 03/04/25 13:09 BMI result Body Mass Index 30.0 GENERAL APPEARANCE: in no acute distress, well developed, well nourished. NECK/THYROID: no carotid bruit, no jugular venous distention. SKIN: no suspicious lesions, warm and dry. HEART: no murmurs, regular rate and rhythm, S1, S2 normal. LUNGS: clear to auscultation bilaterally. ABDOMEN: normal, bowel sounds present, soft, nontender, nondistended. EXTREMITIES: no clubbing, cyanosis, or edema. PERIPHERAL PULSES: equal. NEUROLOGIC: nonfocal, alert and oriented.. Office Procedures EKG Details: Sinus bradycardia 58 beats per minute, normal axis, inferior Q-waves, QTC 404 milliseconds. 86213-[id number], Complete Assessment & Plan Assessment & Plan (1) Hypertension: Code(s): I10 - Essential (primary) hypertension Category: Medical Qualifiers: Hypertension type: essential hypertension Qualified Code(s): I10 - Essential (primary) hypertension (2) Dyspnea on exertion: Comment: Mild to moderate, multifactorial, currently she has somewhat increased episodes of shortness of breath. She uses O2 for short periods p.r.n., and sometimes uses albuterol if there is some tightness. In the chest Code(s): R06.00 - Dyspnea, unspecified Category: Medical Plan 80-year-old female who is here for follow-up. She has background of myeloma. She is undergoing treatment in [place]. She is doing well at this stage. She previously had cardiac catheterization which did not show any significant coronary disease. She is getting some atypical chest pains at night but during the day with ambulation she has no symptoms. Blood pressure is well controlled. We will continue same medications for now. She will see us back in 1 year. Thank you for allowing me to participate in the care of your patient. Please feel free to contact me if you have any questions. Medications: Refilled amlodipine 5 mg PO DAILY 90 tabs 3RF metoprolol succinate ER 50 mg PO DAILY 90 tabs 3RF 90 days losartan 100 mg PO DAILY 90 tabs 3RF 90 days Coding Level of Care Code Est Pt Level 3 (89785) Diagnoses Essential hypertension I10 Hypertension type: essential hypertension Dyspnea on exertion R06.00 CPT Codes EKG - CPT: 77177-Nlofowjkzfkxccqqg, Complete ([id number])
[2025-03-04 13:09] VITALS: BP 120/60; PULSE 58
--- OUTSIDE RECORDS SUMMARY | 2025-03-04 13:16 | XMS_ITS | Encounter Summary ---
Author Organization [employer] Address [address] [facility] [address] [place] [address] Care Team Providers Care Pega Developer Name Role Phone Unavailable Primary Care [...]
--- OUTSIDE RECORDS SUMMARY | 2025-03-04 13:16 | XMS_ITS | Patient Health Record ---
Author Organization [facility] christine BetancourtJa Address [address] [address] Care Team Providers Care Accountant Machine Processing Name Role Phone Corina ATKINS, Mandeep Primary Care Provider Ashvin Henderson Unavailable [phone] Allergies Allergen (clinical drug ingredient) Drug/Non Drug Allergy documented on EMR Reaction Allergy Type Onset Date Status Adhesive tape (uncoded) redness swelling Allergy Active Ceftin Unknown Drug Allergy Active Keflex hives Drug Allergy Active oxycodone Oxycodone HCl Unknown Drug Allergy Act rosamaria oxycodone OxyContin Unknown Drug Allergy Active doxycycline Doxycycline Unknown Drug Allergy Act rosamaria Reason For Referral No Information Medications Medication SIG (Take, Route, Frequency, Duration) Notes Start Date End Date Status Simvastatin 40 MG 1 tablet in the even ing Orally Once a day; Duration: 30 day(s) Active Probiotic Active Ventolin HFA 108 (90 Base) MCG/ACT 2 puffs as needed Inhalation every 6 hrs Active Move Free Joint Health Advance Active Tylenol Active Glucosamine Active Gabapentin 300 MG 1 capsule Orally Onc e a day; Duration: 30 day(s) Active Meloxicam 15 MG 1 tablet Orally Once a day; Duration: 30 day(s) Active Revlimid 10 MG 1 capsule Orally Onc e a day; Duration: 30 day(s) Active Losartan Potassium 100 MG 1 tablet Orall y Once a day; Duration: 30 day(s) Active Aspirin 81 81 MG 1 tablet Orally Once a day; Duration: 30 day(s) Active DULoxetine HCl 20 MG 1 capsule Orally Tw ice a day; Duration: 30 day(s) Active traZODone HCl 50 MG 1 tablet at bedtime as needed Orally Once a day; Duration: 30 day(s) Active Flaxseed Oil Active Fluticasone Propionate Active Colestipol HCl 1 GM 2 tablets Orally Onc e a day; Duration: 30 day(s) Active Pantoprazole Sodium 40 MG 1 tablet Orall y Once a day; Duration: 30 day(s) Active Xiidra 5 % 1 drop into affected eye Ophthalmic Twice a day Active Social History Tobacco Use: Social History Observation Description Date Details (start date - stop date) Former Smoker NA - NA Tobacco Use/Smoking Question Answer Notes Are you a: former smoker Additional Findings: Tobacco Non-User Current no n-smoker Alcohol Screen Question Answer Notes Did you have a drink contain ing alcohol in the past year? Yes How often did you have a dri nk containing alcohol in the past year? Monthly or less (1 point) Points 1 Interpretation Negative Tobacco use other than smoking: Question Answer Notes Are you an other tobacco user? No Plan Of Treatment No Information Insurance Providers Payer Name Payer Address Payer Phone Subscriber Number Group Number Insured Name Patient Relationship to Insured Coverage Start Date Coverage End Date Medicare National Govt Svcs Inc [address] [place] [address] [id number] Moni Cole Self - patient is the insured [employer] [address] [place] [address] [id number] Moni Cole Self - patient is the insured Medical (General) History Medical History History ICD Code Anxiety osteoarthritis Back,Hip,and Knee pain Broken bones CAD (Cholesterol) Cancer Cataracts Depression Headaches/Migraines Lung disease Numbness Sciatica chronic sinusitis Measles Mumps Chicken pox Multiple Myloma Hypertension Carotid artery Surgical History Surgery Date(Month/Year) Endoscopy/colonoscopy 09/12/2018 Oral surgery 02/02/2017 Torn rotator cuff/ complications found l esion 01/12/2016 Right shoulder surgery/ complications at rophied tendon 11/20/2014 Broken wrist 12/30/2010 Hardware removal 05/30/2012 Cataracts 05/16/13 Right knee tear 08/14/2005 Bladder tumor 09/12/2005
--- OUTSIDE RECORDS SUMMARY | 2025-03-04 13:16 | XMS_ITS | Clinical Summary ---
Author Organization [address] [facility] Address [address] [place] [address] Phone Care Team Providers Care Smudger Name Role Phone Markos James MD Primary Care Provider [phone] Allergies Active Allergy Reactions Criticality Noted Date [...] age to complete this topic Insurance MEDICARE [facility] Care Teams Smudger Relationship Specialty Start Date End Date Markos James MD [address] [place] [address] [address] [facility] [place] [address] PCP - General 01/08/24
== END 2025-03-04 13:34 | disposition home or self-care (01) ==
LOC: HO.HCS 12:49
PROVIDERS: PCP Internal Medicine; Visit Provider Internal Medicine Cardiovascular Disease
DX: I10 Essential (primary) hypertension (principal); R06.00 Dyspnea, unspecified
CPT/HCPCS: 93010; 99213

== ENCOUNTER → 2025-03-04 12:49 | Outpatient (BNVA) | payer MEDICARE, SELFPAY | PROVIDERS: PCP Internal Medicine; Visit Provider Internal Medicine Cardiovascular Disease | DX: I10 Essential (primary) hypertension (principal); R06.00 Dyspnea, unspecified; R00.1 Bradycardia, unspecified; R94.31 Abnormal electrocardiogram [ECG] [EKG]; Z79.899 Other long term (current) drug therapy | CPT/HCPCS: 93005; 99212 ==

== ENCOUNTER 2025-05-06 14:24 | Outpatient (AMB) | payer MEDICARE, SELFPAY ==
--- OUTSIDE RECORDS SUMMARY | 2015-10-28 01:00 | XMS_ITS | Encounter Summary ---
Author Organization [facility] Address [address] [facility] [address] [place] [address] Phone Care Team Providers Care Director Of Broadcast Name Role Phone Unavailable Primary Care Provider Unavailabl e Reason for Visit * MRI/CAT Scan - Closed Specialty Diagnoses / Procedures Referred By Yasir t Referred To Contact Procedures CT Chest Outside (No Interpretation) Van Dupont MD 55 [place] [address] Phone: tel: fax: mailto:[email or web address] du Referral ID Status Reason Start Date Expiration Date Visits Re quested Visits Authorized [id number] Closed 01/24/2017 01/24/2018 1 1 Encounter Details Date Type Department Care Team (Late st Contact Info) Description 10/28/2015 Hospital Encounter [facility] [address] [place] [address] Van Dupont MD 55 [place] [address] [email or web address] u Social History Tobacco Use Types Packs/Day [...] 10/31/2023 4:32 PM Shyanne Owens RN * [place] Suicide Severity Rating Scale (Screener/Recent Self-Report) Question Answer Date of Assessment Author 1. Wish to be (Past 1 Month) No 10/31/2023 4:32 PM Shyanne wOens RN 2. Non-Specific Active Suicidal Thoughts (Past 1 Month) No 10/31/2023 4:32 PM Shyanne Owens RN 6. Suicidal Behavior (Lifetime) No 10/31/2023 4:32 PM Shyanne Owens RN documented as of this encounter Plan of Treatment Upcoming Encounters Date Type Department Care Team (Late st Contact Info) Description 05/12/2025 11:30 AM EDT Blood Draw [facility] Center for Hematology Malignancies [address] [place] [address], 9th Floor, [address] [place] [address] Van Dupont MD [address] [place] [address] [email or web address] 05/12/2025 12:30 PM EDT Office Visit [facility] Center for Hematology Malignancies [address] [facility], 9th Floor, [address] [place] [address] Van Dupont MD [address] [place] [address] [email or web address] documented as of this encounter Goals Goal Patient Goal Type Associated Problems Recent Progress Patient-Stated? Author Acute Care Plan Acute Care Plan No Carolina Jackson RN Note: Cellular therapy/ Immune Effector Cell patient. Patient received cellular therapy product Amol-reese on 11/01/23 Page the on-call Immune Effector Cell Attending via www.ShowNearby Login [facility] Page immediately if patient presents within [...] team evaluation. Patients should be admitted to [place] [address] to the Immune Effector Cell Service. documented as of this encounter Procedures Procedure Name Priority Date/Time Associated Diagnosis Comments CT CHEST OUTSIDE (NO INTERPRETATION) Routine 10/28/2015 12:00 AM EST documented in this encounter Results * CT Chest Outside (No Interpretation) (10/28/2015 12:00 AM EST) Narrative [facility] IMG INTERFACES - 01/24/2017 7:28 AM EDT This study is for PACS storage only and not for interpretation. us Van Dupont MD IMG OUTSIDE IMAGING W/OUT INTERP RETATION Final Result [facility] IMG INTERFACES documented in this encounter Visit [...] It is not the complete legal health record.[facility]
--- OUTSIDE RECORDS SUMMARY | 2015-12-11 | XMS_ITS | Encounter Summary ---
Author Organization [facility] Address [address] [employer] [facility] [address] [place] [address] Phone Care Team Providers Care Compliance Vice President Name Role Phone Unavailable Primary Care Provider Unavailabl e Reason for Visit * MRI/CAT Scan - Closed Specialty Diagnoses / Procedures Referred By Yasir weller Referred To Contact Procedures MRI Outside Upper Extremity (No Interpretation) Van Dupont MD 55 [place] [address] Phone: tel: fax: mailto:[email or web address] Referral ID Status Reason Start Date Expiration Date Visits Re quested Visits Authorized [id number] Closed 02/06/2017 02/06/2018 1 1 Encounter Details Date Type Department Care Team (Late st Contact Info) Description 12/11/2015 Hospital Encounter [facility] Imaging [address] [place] [address] Van Dupont MD 55 [place] [address] [email or web address] u Social History Tobacco Use [...] 10/31/2023 4:32 PM Shyanne Owens RN * [place] Suicide Severity Rating Scale (Screener/Recent Self-Report) Question [...] Description 05/12/2025 11:30 AM EDT Blood Draw [facility] Center for Hematology Malignancies [address] [facility], 9th Floor, [address] [place] [address] Van Dupont MD [address] [place] [address] [email or web address] 05/12/2025 12:30 PM EDT Office Visit [facility] Center for Hematology Malignancies [address] [facility], 9th Floor, [address] [place] [address] Van Dupont MD [address] [place] [address] [email or web address] documented as of this encounter Goals Goal Patient Goal Type Associated Problems Recent Progress Patient-Stated? Author Acute Care Plan Acute Care Plan No Carolina Jackson RN Note: Cellular therapy/ Immune Effector Cell patient. Patient received cellular therapy product Amol-reese on 11/01/23 Page the on-call Immune Effector Cell Attending via www.[employer] Login [facility] Page immediately if patient presents within the [...] team evaluation. Patients should be admitted to [place] [address] to the Immune Effector Cell Service. documented [...] EST CoV-Risk Comment:Per note documentation 11/20/2023 11/21/2023 4 3:00 PM EDT Metapneumovirus 11/21/2023 11/21/2023 11/28/2023 1:22 AM EDT documented as of this encounter Additional Source Comments The information contained in this document represents components of the legal health record. It is not the complete legal health record.[facility]
--- OUTSIDE RECORDS SUMMARY | 2016-11-23 | XMS_ITS | Encounter Summary ---
Author Organization [facility] Address [address] [facility] [facility] [address] [place] [address] Phone Care Team Providers Care Grubber Name Role Phone Unavailable Primary Care Provider Unavailabl e Reason for Visit * MRI/CAT Scan - Closed Specialty Diagnoses / Procedures Referred By Yasir weller Referred To Contact Procedures MRI Outside Upper Extremity (No Interpretation) Van Dupont MD 55 [place] [address] Phone: tel: fax: mailto:[email or web address] du Referral ID Status Reason Start Date Expiration Date Visits Re quested Visits Authorized [id number] Closed 02/06/2017 02/06/2018 1 1 Encounter Details Date Type Department Care Team (Late st Contact Info) Description 11/23/2016 Hospital Encounter [facility] 55 [place] [address] Van Dupont MD 55 [place] [address] [email or web address] u Social History Tobacco Use Types Packs/Day [...] 10/31/2023 4:32 PM Shyanne Owens RN * [place] Suicide Severity Rating Scale (Screener/Recent Self-Report) Question [...] Description 05/12/2025 11:30 AM EDT Blood Draw [facility] [address] [facility], 9th Floor, [address] [place] [address] Van Dupont MD [address] [place] [address] [email or web address] 05/12/2025 12:30 PM EDT Office Visit [facility] [address] [facility], 9th Floor, [address] [place] [address] Van Dupont MD [address] [place] [address] [email or web address] documented as of this encounter Goals Goal Patient Goal Type Associated Problems Recent Progress Patient-Stated? Author Acute Care Plan Acute Care Plan No Carolina Jackson RN Note: Cellular therapy/ Immune Effector Cell patient. Patient received cellular therapy product Amol-reese on 11/01/23 Page the on-call Immune Effector Cell Attending via www.MindFuse Login [facility] Page immediately if patient presents within [...] team evaluation. Patients should be admitted to [place] [address] to the Immune Effector Cell Service. documented as of this encounter Procedures Procedure Name Priority Date/Time Associated Diagnosis Comments MRI UPPER EXTREMITY OUTSIDE (NO INTERPRETATION) Routine 11/23/2016 12:00 AM EDT documented in this encounter Results * MRI Outside Upper Extremity (No Interpretation) (11/23/2016 12:00 AM EDT) Narrative [facility]G INTERFACES - 02/06/2017 2:09 PM EDT This study is for PACS storage only and not for interpretation. us Van Dupont MD IMG OUTSIDE IMAGING W/OUT INTERP RETATION Final Result [facility]G INTERFACES documented in this encounter Visit [...] It is not the complete legal health record.[facility]
--- OUTSIDE RECORDS SUMMARY | 2018-01-09 | XMS_ITS | Encounter Summary ---
Author Organization [facility] Address [address] [employer] [facility] [address] [place] [address] Phone Care Team Providers Care Authorization Specialist Name Role Phone Unavailable Primary Care Provider Unavailabl e Reason for Visit * MRI/CAT Scan - Closed Specialty Diagnoses / Procedures Referred By Yasir t Referred To Contact Procedures MRI Spine (Bone) Outside (No Interpretation) Van Dupont MD 55 [place] [address] Phone: tel: fax: mailto:[email or web address] du Referral ID Status Reason Start Date Expiration Date Visits Re quested Visits Authorized [id number] Closed 01/21/2018 01/21/2019 1 1 Encounter Details Date Type Department Care Team (Late st Contact Info) Description 01/09/2018 [facility] En[facility] [address] [place] [address] Van Dupont MD 55 [place] [address] [email or web address] u Social History Tobacco Use Types [...] 10/31/2023 4:32 PM Shyanne Owens RN * [place] Suicide Severity Rating Scale (Screener/Recent Self-Report) Question [...] Description 05/12/2025 11:30 AM EDT Blood Draw [facility] Malignancies 32 [facility], 9th Floor, [address] [place] [address] Van Dupont MD 55 [place] [address] [email or web address] u 05/12/2025 12:30 PM EDT Office Visit [facility] Malignancies [address] [facility], 9th Floor, [address] [place] [address] Van Dupont MD [address] [place] [address] [email or web address] documented as of this encounter Goals Goal Patient Goal Type Associated Problems Recent Progress Patient-Stated? Author Acute Care Plan Acute Care Plan No Carolina Jackson RN Note: Cellular therapy/ Immune Effector Cell patient. Patient received cellular therapy product Amol-reese on 11/01/23 Page the on-call Immune Effector Cell Attending via www.[employer] Login [facility] Page immediately if patient presents [...] team evaluation. Patients should be admitted to [place] [address] to the Immune Effector Cell Service. documented as of this encounter Procedures Procedure Name Priority Date/Time Associated Diagnosis Comments MRI SPINE MUSCULOSKELETAL FOCUS OUTSIDE (NO INTERPRETATION) Routine 01/09/2018 12:00 AM EDT documented in this encounter Results * MRI Spine (Bone) Outside (No Interpretation) (01/09/2018 12:00 AM EDT) Narrative [facility] IMG INTERFACES - 01/21/2018 2:08 PM EDT This study is for PACS storage only and not for interpretation. us Van Dupont MD IMG OUTSIDE IMAGING W/OUT INTERP RETATION Final Result [facility] IMG INTERFACES documented in this encounter Visit [...] It is not the complete legal health record.[facility]
--- OUTSIDE RECORDS SUMMARY | 2018-01-10 | XMS_ITS | Encounter Summary ---
Author Organization [facility] Address [address] [place] [address] Phone Care Team Providers Care Technical Research Scientist Name Role Phone Unavailable Primary Care Provider Unavailabl e Encounter Details Date Type Department Care Team (Late st Contact Info) Description 01/10/2018 Hospital Encounter [facility] General Imaging [address] [place] [address] Van Dupont MD [address] [place] [address] [email or web address]. u Social History Tobacco Use Types Packs/Day [...] No Risk Indicated 10/31/2023 4:32 PM Shyanne Owens, NIKOLAS * [place] Suicide Severity Rating Scale (Screener/Recent Self-Report) Question [...] Description 05/12/2025 11:30 AM EDT Blood Draw [facility] Center for Hematology Malignancies [address] [place] [address], 9th Floor, [address] [place] [address] Van Dupont MD [address] [place] [address] [email or web address] 05/12/2025 12:30 PM EDT Office Visit [facility] Center for Hematology Malignancies [address] [place] [address], 9th Floor, [address] [place] [address] Van Dupont MD [address] [place] [address] [email or web address] documented as of this encounter Goals Goal Patient Goal Type Associated Problems Recent Progress Patient-Stated? Author Acute Care Plan Acute Care Plan No Carolina Jackson RN Note: Cellular therapy/ Immune Effector Cell patient. Patient received cellular therapy product Amol-reese on 11/01/23 Page the on-call Immune Effector Cell Attending via www.[employer] Login [facility] Page immediately if patient presents [...] team evaluation. Patients should be admitted to [place] [address] to the Immune Effector Cell Service. documented as of this encounter Procedures Procedure Name Priority Date/Time Associated Diagnosis Comments XR UPPER EXTREMITY OUTSIDE (NO INTERPRETATION) Routine 01/10/2018 12:00 AM EDT documented in this encounter Results * XR Upper Extremity Outside (No Interpretation) (01/10/2018 12:00 AM EDT) Narrative [facility] IMG INTERFACES - 01/21/2018 2:05 PM EDT This study is for PACS storage only and not for interpretation. us Van Dupont MD IMG OUTSIDE IMAGING W/OUT INTERP RETATION Final Result [facility] IMG INTERFACES documented in this [...] It is not the complete legal health record.[facility]
--- OUTSIDE RECORDS SUMMARY | 2018-01-10 00:15 | XMS_ITS | Encounter Summary ---
Author Organization [facility] Address [address] [facility] [address] [place] [address] Phone Care Team Providers Care Skid Wrapper Name Role Phone Unavailable Primary Care Provider Unavailabl e Encounter Details Date Type Department Care Team (Late st Contact Info) Description 01/10/2018 12:15 AM EDT Hospital Encounter [facility] [address] [place] [address] Van Dupont MD [address] [place] [address] [email or web address] Social History Tobacco Use Types [...] 10/31/2023 4:32 PM Shyanne Owens RN * [place] Suicide Severity Rating Scale (Screener/Recent Self-Report) Question [...] Description 05/12/2025 11:30 AM EDT Blood Draw [facility] Center for Hematology Malignancies [address] [place] [address], 9th Floor, [address] [place] [address] Van Dupont MD [address] [place] [address] [email or web address] u 05/12/2025 12:30 PM EDT Office Visit [facility] Center for Hematology Malignancies [address] [place] [address], 9th Floor, [address] [place] [address] Van Dupont MD [address] [place] [address] [email or web address] u documented as of this encounter Goals Goal Patient Goal Type Associated Problems Recent Progress Patient-Stated? Author Acute Care Plan Acute Care Plan No Carolina Jackson RN Note: Cellular therapy/ Immune Effector Cell patient. Patient received cellular therapy product Amol-reese on 11/01/23 Page the on-call Immune Effector Cell Attending via www.[employer] Login [facility] Page immediately if patient presents [...] team evaluation. Patients should be admitted to [place] [address] to the Immune Effector Cell Service. documented as of this encounter Procedures Procedure Name Priority Date/Time Associated Diagnosis Comments XR CHEST OUTSIDE (NO INTERPRETATION) Routine 01/10/2018 12:15 AM EDT documented in this encounter Results * XR Chest Outside (No Interpretation) (01/10/2018 12:15 AM EDT) Narrative [facility] IMG INTERFACES - 01/21/2018 2:06 PM EDT [...] It is not the complete legal health record.[facility]
[2025-05-06 14:28] VITALS: BP 124/50; PULSE 80; TEMP 36.6; O2SAT 95; BMI 29.2
--- NOTE | 2025-05-06 14:28 | MHC.OFFWIV ---
Intake Vital Signs 05/06/25 14:28 Height 5 ft 3 in Weight 165 lb BMI 29.2 BP 124/50 L Blood Pressure Location Lt brachial Position Sitting Pulse 80 Pulse Source Pulse Oximeter Temp 97.9 F Temp Source Oral Pulse Oximetry (%) 95 Oxygen Delivery Method Room Air Intake Visit Reasons: EP-sore throat Intake Note: pt presents with pain to throat down by esophagus for months Patient Tobacco Use Status: Former Tobacco user Allergies oxycodone (From OXYCONTIN) Allergy (Mild, Verified 05/06/25 14:36) PRURITUS, severe itching adhesive tape Allergy (Unknown, Verified 05/06/25 14:36) BLISTERS cephalexin (Keflex) Allergy (Unknown, Verified 05/06/25 14:36) hives doxycycline (DOXYCYCLINE) Adverse Reaction (Intermediate, Verified 05/06/25 14:36) STOMACH PAINS Do you need a note to return to daycare/school/sports/work: No HPI HPI Comments History of Present Illness Details History of Present Illness - The patient is an 80-year-old female presenting with persistent esophageal discomfort. - Has had a throat discomfort for over a month and the pain comes and goes. - She has a pain in the throat that is a weird feeling that is hard to describe. - Reports a history of dental infection requiring surgical debridement, ongoing for months. - Has a small hiatal hernia, contributing to occasional dysphagia and esophageal pressure. - Had COVID-19 in the spring and was not sure of this sore throat was because of covid. - History of multiple myeloma, treated with CAR-T therapy, not on chemotherapy since. - Gallstones with previous episodes of epigastric pain, no surgical intervention pursued. - She denies fever, chills, CP, SOB, phlegm, vomiting, n/v/d. Physical Exam General: Cooperative, healthy appearing, comfortable, no acute distress and well developed Orientation: Patient oriented x3 Limitations: No limitations Head: Normal to inspection Mouth: Uvula is midline. Oropharynx is pink with no exudates noted. Neck: Tender at the sternal notch, no masses noted, no lumps or masses on thyroid, full ROM. No lymphadenopathy noted. Respiratory: Normal respiratory effort and able to speak in complete sentences. Clear to auscultation bilaterally Cardiovascular: Regular rate and rhythm. Normal S1 and S2 GI: Normal to inspection. Soft to palpation and nontender Skin: No rashes or lesions noted Neuro: Patient oriented x3 Extremities: Normal to inspection Patient was informed and verbally consented to the use of an ambient scribe for clinic note documentation during this visit. [facility] Medical History Osteoarthritis of knees, bilateral Abnormal finding on MRI of brain Long-term current use of intravenous immunoglobulin (IVIG) Tinea pedis Urinary incontinence, urge Urinary frequency Urinary urgency TSH elevation Nasal congestion Hospital discharge follow-up Sepsis Pneumonia Acute exacerbation of chronic obstructive pulmonary disease Chronic cough Generalized anxiety disorder Right low back pain Hand pain Dysphagia, pharyngoesophageal phase Costochondritis Dyspnea on exertion COPD (chronic obstructive pulmonary disease) Chronic diarrhea Anxiety Cataract Bladder cancer GERD (gastroesophageal reflux disease) Asthma IBS (irritable bowel syndrome) Hypertension Multiple myeloma Surgical History History of oral surgery History of esophagogastroduodenoscopy (EGD) H/O colonoscopy History of eyelid surgery History of tonsillectomy H/O wrist surgery H/O eye surgery History of arthroscopy of both knees H/O rotator cuff surgery H/O cardiac catheterization Family History Father Pancreatic cancer Diabetes Stroke Mother No problems noted. Sister Diabetes Son No problems noted. Social History Household Members: [facility] Are you a primary long term care social worker to a significant other at home: No Do you presently have visiting nurse or other home services: Yes (VNA) Alcohol intake: never Patient Tobacco Use Status: Former Tobacco user Tobacco use type: Cigarette e-Cigarette/Vaping Use: Never Used Second Hand Smoke Exposure: No Advance Directives Date on File: 07/20/23 service: No Current occupational status: retired Cognitive needs: No Hearing needs: No Vision needs: Yes (Glasses) Review of Systems Const All systems reviewed & are unremarkable except as noted in HPI and below Physical Exam Vital Signs: Last Vital Signs Temp 97.9 F 05/06/25 14:28 Pulse 80 05/06/25 14:28 BP 124/50 L 05/06/25 14:28 Pulse Ox 95 05/06/25 14:28 Oxygen Delivery Method Room Air 05/06/25 14:28 BMI result Body Mass Index 29.2 Assessment & Plan Assessment & Plan (1) Sore throat: Code(s): J02.9 - Acute pharyngitis, unspecified Plan Most likely strep vs GERD vs hiatal hernia Rapid was negative plan - Consider further evaluation with endoscopy to assess esophageal condition. - Discussed potential need for swallow study to evaluate dysphagia. - Diet as tolerated - drink fluids and eat small soft meals - f/u with GI - f/u with PCP Coding Level of Care Code Est Pt Level 3 (48468) Diagnoses Sore throat J02.9
--- OUTSIDE RECORDS SUMMARY | 2025-05-06 16:42 | XMS_ITS | Encounter Summary ---
Author Organization [facility] Address [address] [place] [address] Care Team Providers Care Tractor Mechanic Name Role Phone Markos James MD Primary Care Provider [phone] Encounter Details Date Type Department Care Team (Late st Contact Info) Description 09/25/2024 Lab Requisition [facility] - Main Lab [address] [facility] [place] [address] Glo Espinoza PA [address] [place], [place] [id number] Personal history of malignant neoplasm of bladder [...] AM EST) Final Diagnosis A. Urine, Voided, ([id number]): Negative for high grade urothelial carcinoma. Results of UroVysion fluorescence in situ hybridization (FISH) testing: CEP3: Normal CEP7: Normal CEP17: Normal LSI 9p21: Normal Interpretation: Normal profile Controls stained appropriately. Note: The results are intended as a screening device and should be interpreted in association with other clinical and pathological findings. 10/09/2024 11:50 AM EST [facility] Clinical Information History of bladder neoplasm (malignant) Z85.51 Urine Cytology/FISH (now) 10/09/2024 11:50 AM [facility] Gross Description A. Urine, Voided, ([id number]): Received one ThinPrep slide for cytology screen and one ThinPrep slide for UroVysion FISH 10/09/2024 11:50 AM [facility] Disclaimer Unless otherwise specified, all tissue is 10% NB formalin fixed and paraffin embedded. Technical pathology services provided by [facility] at [address] [place] [address] [address], [place] [address] (CLIA #[id number]/Nara Deal MD, Tool And Die Technician) 10/09/2024 11:50 AM [facility] Tissue Urine specimen from urethra / Unknown 09/19/2024 09/25/2024 8:14 AM EST us [facility] PATHOLOGY ORDERABLES Final Result [facility] [address] [place] [address], documented in this encounter Visit Diagnoses Diagnosis Personal history of malignant neoplasm of bladder documented in this encounter Care Teams Tractor Mechanic Relationship Specialty Start Date End Date Markos James MD [address] [place] [address] [address] [facility] [place] [address] PCP - General 01/08/24 documented as of this encounter
--- OUTSIDE RECORDS SUMMARY | 2025-05-06 16:42 | XMS_ITS | Encounter Summary ---
Author Organization [employer] Address [address] [facility] 7t [place] [address] Care Team Providers Care Mill Feeder Name Role Phone Unavailable Primary Care Provider Unavailabl e Reason for Visit * Reason Onset Date Comments appt 08/13/2023 Encounter Details Date Type Department Care Team (Late st Contact Info) Description 08/13/2023 Telephone [facility] [address] [place] [address] Lala Phillips DDS appt Social History Tobacco Use Types Packs/Day [...] either way from someone in the office DR documented in this encounter Plan of Treatment Not on file documented as of this encounter Visit Diagnoses Not on filedocumented in this encounter
--- OUTSIDE RECORDS SUMMARY | 2025-05-06 16:42 | XMS_ITS | Encounter Summary ---
Author Organization [employer] Address [address] [facility] 7t [place] [address] Care Team Providers Care Plant Cytologist Name Role Phone Unavailable Primary Care Provider [...]
--- OUTSIDE RECORDS SUMMARY | 2025-05-06 16:42 | XMS_ITS | Encounter Summary ---
Author Organization [facility] Address [address] [facility] [address] [place] [address] Phone Care Team Providers Care Sales Route Driver Name Role Phone Debra Muniz MD Unavailable Mohinder Fan MD Unavailable [phone] Van Dupont MD Unavailable Markos James MD Primary Care Provider [phone] Arsh Mata MD Unavailable [phone] Eufemia Caro RN Unavailable [email or web address] Encounter Details Date Type Department Care Team (Late st Contact Info) Description 04/17/2017 Procedure Pass [facility] [address] [place] [address] Social History Tobacco Use Types Packs/Day Years [...] Description 05/12/2025 11:30 AM EDT Blood Draw [facility] Malignancies [address] [facility], 9th [address], [address] [place], [place] [id number] Van Dupont MD [address] [place] [address] [email or web address] 05/12/2025 12:30 PM EDT Office Visit [facility] Malignancies [address] [facility], 9th [address], [address] [place] [address] Van Dupont MD [address] [place] [address] [email or web address] documented as of this encounter Visit Diagnoses Not on filedocumented in this encounter Additional Health Concerns Infection Onset Date Last Indicated Resolved Time CoV-Risk Comment:Per note documentation 10/31/2023 10/31/2023 2:50 PM EST CoV-Risk Comment:Per note documentation 11/07/2023 11/07/2023 9:26 PM EST CoV-Risk Comment:Per note documentation 11/20/2023 11/21/2023 3:00 PM EDT Metapneumovirus 11/21/2023 11/21/2023 11/28/2023 1 :22 AM EDT documented as of this encounter Care Teams Sales Route Driver Relationship Specialty Start Date End Date Markos James MD [address] [place] [address] PCP - General Internal Medicine 12/07/20 Debra Muniz MD [address] [place] [address] Medical Oncology 05/27/18 Mohinder Fan MD [address] [place] [address] Consulting Provider Geriatric Psychiatry 05/27/18 Van Dupont MD [address] [place] [address] [email or web address] Primary Oncologist Medical Oncology 10/14/18 Arsh Mata MD [address] [place] [address] [email or web address] Treatment Team Hematology and Oncology 10/16/23 Eufemia Caro RN [address] [place] [id number] [email or web address] Associate Infusion Nurse 10/16/23 documented as of this encounter Additional Source Comments The information contained in this document represents components of the legal health record. It is not the complete legal health record.[facility]
--- OUTSIDE RECORDS SUMMARY | 2025-05-06 16:42 | XMS_ITS | Encounter Summary ---
Author Organization [facility] Address [address] [employer] [facility] [address] [place] [address] Phone Care Team Providers Care Freelance Translator Name Role Phone Debra Muniz MD Unavailable Mohinder Fan MD Unavailable [phone] Van Dupont MD Unavailable Markos James MD Primary Care Provider Arsh Mata MD Unavailable [phone] Eufemia Caro RN Unavailable MELISSA [email or web address] Encounter Details Date Type Department Care Team (Late st Contact Info) Description 04/11/2024 Procedure Pass [facility] - MRI [address], 6th [place] [address] Social History Tobacco Use Types Packs/Day Years [...] Description 05/12/2025 11:30 AM EDT Blood Draw [facility] Malignancies [address] [place] [address], 9th Floor, [address] [place] [address] Van Dupont MD [address] [place] [address] [email or web address] u 05/12/2025 12:30 PM EDT Office Visit [facility] Malignancies [address] [place] [address], 9th Floor, [address] [place] [address] Van Dupont MD 55 [place] [address] [email or web address] u documented as of this encounter Goals Goal Patient Goal Type Associated Problems Recent Progress Patient-Stated? Author Acute Care Plan Acute Care Plan Carolina Mohan RN Note: Cellular therapy/ Immune Effector Cell patient. Patient received cellular therapy product Amol-reese on 11/01/23 Page the on-call Immune Effector Cell Attending via www.[employer] Login [facility] Page immediately if patient presents [...] team evaluation. Patients should be admitted to [place] [address] to the Immune Effector Cell Service. documented as of this encounter Visit Diagnoses Not on filedocumented in this encounter Care Teams Freelance Translator Relationship Specialty Start Date End Date Po, Markos Awan MD [address] [place] [address] [place] [phone] PCP - General Internal Medicine 12/07/20 Debra Muniz MD [address] [place] [address] Medical Oncology 05/27/18 Mohinder Fan MD [address] [place] [address] Consulting Provider Geriatric Psychiatry 05/27/18 Van Dupont MD [address] [place] [address] [email or web address] Primary Oncologist Medical Oncology 10/14/18 Arsh Mata MD [address] [place] [address] [email or web address] Treatment Team Hematology and Oncology 10/16/23 Eufemia Caro RN 55 [place] [address] [email or web address] mason Associate Infusion Nurse 10/16/23 documented as of this encounter Additional Source Comments The information contained in this document represents components of the legal health record. It is not the complete legal health record.[facility]
--- OUTSIDE RECORDS SUMMARY | 2025-05-06 16:42 | XMS_ITS | Encounter Summary ---
Author Organization [facility] Address [address] [place] [address] [address] [place] [address] Phone Care Team Providers Care Cage Supervisor Name Role Phone Debra Muniz MD Unavailable Mohinder Fan MD Unavailable [phone] Van Dupont MD Unavailable Markos James MD Primary Care Provider [phone] Arsh Mata MD Unavailable [phone] Eufemia Caro RN Unavailable MELISSA [email or web address] Encounter Details Date Type Department Care Team (Late st Contact Info) Description 10/30/2022 Procedure Pass [facility] [address] [facility], 6th [place] [address] Social History Tobacco Use Types Packs/Day Years [...] Description 05/12/2025 11:30 AM EDT Blood Draw [facility] Malignancies [address] [facility], 9th Floor, [address] [place] [address] Van Dupont MD [address] [place] [address] [email or web address] 05/12/2025 12:30 PM EDT Office Visit [facility] Malignancies [address] [facility], 9th Floor, [address] [place] [address] Van Dupont MD [address] [place] [address] [email or web address] documented as of this [...] documented as of this encounter Care Teams Cage Supervisor Relationship Specialty Start Date End Date Po, Markos Awan MD [address] [place] [phone] PCP - General Internal Medicine 12/07/20 Debra Muniz MD [address] [place] [address] Medical Oncology 05/27/18 Mohinder Fan MD [address] [place] [address] Consulting Provider Geriatric Psychiatry 05/27/18 Van Dupont MD [address] [place] [address] [email or web address] Primary Oncologist Medical Oncology 10/14/18 Arsh Mata MD [address] [place] [address] [email or web address] Treatment Team Hematology and Oncology 10/16/23 Eufemia Caro, RN 55 [place] [address] [email or web address] mason Associate Infusion Nurse 10/16/23 documented as of this encounter Additional Source Comments The information contained in this document represents components of the legal health record. It is not the complete legal health record.[facility]
--- OUTSIDE RECORDS SUMMARY | 2025-05-06 16:42 | XMS_ITS | Encounter Summary ---
Author Organization [facility] Address [address] [employer] [facility] [address] [place] [address] Phone Care Team Providers Care Assembly Loader Name Role Phone Debra Muniz MD Unavailable Mohinder Fan MD Unavailable [phone] Van Dupont MD Unavailable Markos James MD Primary Care Provider [phone] Arsh Mata MD Unavailable [phone] Eufemia Caro RN Unavailable MELISSA [email or web address] Encounter Details Date Type Department Care Team (Late st Contact Info) Description 01/21/2018 Procedure Pass [facility] [address] [place] [address] Social History Tobacco Use Types Packs/Day Years [...] Description 05/12/2025 11:30 AM EDT Blood Draw [facility]ology Malignancies [address] [facility], 9th Floor, [address] [place] [address] Van Dupont MD 55 [place] [address] [email or web address] 05/12/2025 12:30 PM EDT Office Visit [facility] for Hematology Malignancies [address] [facility], 9th Floor, [address] [place] [address] Van Dupont MD 55 [place] [address] [email or web address] documented as of this encounter [...] documented as of this encounter Care Teams Assembly Loader Relationship Specialty Start Date End Date Markos James MD [address] [facility] [address] [place] [address] [phone] PCP - General Internal Medicine 12/07/20 Debra Muniz MD [address] [place] [address] Medical Oncology 05/27/18 Mohinder Fan MD [address] [place] [address] Consulting Provider Geriatric Psychiatry 05/27/18 Van Dupont MD [address] [place] [address] [email or web address] Primary Oncologist Medical Oncology 10/14/18 Arsh Mata MD [address] [place] [address] [email or web address] Treatment Team Hematology and Oncology 10/16/23 Eufemia Caro, RN [address] [place] [address] [email or web address] mason Associate Infusion Nurse 10/16/23 documented as of this encounter Additional Source Comments The information contained in this document represents components of the legal health record. It is not the complete legal health record.[facility]
--- OUTSIDE RECORDS SUMMARY | 2025-05-06 16:42 | XMS_ITS | Clinical Summary ---
Author Organization [employer] Address [address] [facility] 7t [place] [address] Care Team Providers Care Dinker Name Role Phone Unavailable Primary Care Provider [...] 02/08/1964 Zoster Vaccines (1 of 2) 02/08/1963 Dental Prophylaxis 01/17/2020 07/18/2019 Dental Oral Exam 04/05/2022 10/05/2021 COVID-19 Vaccine ( season) 2024 06/18/2023, 05/18/2022, 10/29/2021, Additional history exists Dental X-Ray: Bitewings 06/09/2024 06/08/2023, 10/05 Dental X-Ray: Full Mouth 10/06/2024 10/05/2021 Tobacco Screening 04/25/2025 04/25/2024 Influenza Vaccine (#1) 2025 , 06/07/2022, 07/01/2021, Additional history exists Pneumococcal Vaccine: 50+ Years Completed 10/07/2018, 01/15/2017 RSV Patients and Patients Aged 60 years or older Completed 07/14/2023 HIB Vaccines Aged Out No longer eligi [...] Health Maintenance Insurance DENTAL - [facility] [place] [id number]
--- OUTSIDE RECORDS SUMMARY | 2025-05-06 16:42 | XMS_ITS | Encounter Summary ---
Author Organization [facility] Address [address] [employer] [address] [address] Phone Care Team Providers Care Nursing Director Name Role Phone Debra Muniz MD Unavailable [phone] Mohinder Fan MD Unavailable [phone] Van Dupont MD Unavailable Markos James MD Primary Care Provider Arsh Mata MD Unavailable [phone] Eufemia Caro RN Unavailable MELISSA [email or web address] Encounter Details Date Type Department Care Team (Late st Contact Info) Description 09/11/2023 Procedure Pass [facility] [address] [place] [address] Social History Tobacco Use Types Packs/Day Years Used Date Smoking Tobacco: Never Assessed Education Answer Date Recorded Are you interested in more education? Not on tico e 12/28/2022 Are you concerned about learning? Not on file 12/28/2022 No 12/28/2022 No 12/28/2022 Digital Access Answer Date Recorded No 01/29/2023 No 01/29/2023 Reliable internet access at home? Not on file 01/29/2023 Device with a working camera? Not on file Comments Unknown Sex and Gender Information Value Date Recorded Sex Assigned at Not on file Legal Sex Female 11:39 AM EDT Gender Identity Not on file Sexual Orientation Not on file documented as of this encounter Plan of Treatment Upcoming Encounters Date Type Department Care Team (Late st Contact Info) Description 05/12/2025 11:30 AM EDT Blood Draw [facility] Malignancies [address] [facility], 9th Floor, [address] [place] [address] Van Dupont MD [address] [place] [address] [email or web address] 05/12/2025 12:30 PM EDT Office Visit [facility] Malignancies [address] [facility], 9th Floor, [address] [place] [address] Van Dupont MD [address] [place] [address] [email or web address] documented as of this [...] documented as of this encounter Care Teams Nursing Director Relationship Specialty Start Date End Date Po, Markos Awan MD [address] [place] [phone] PCP - General Internal Medicine 12/07/20 Debra Muniz MD [address] [place] [address] Medical Oncology 05/27/18 Mohinder Fan MD [address] [place] [address] Consulting Provider Geriatric Psychiatry 05/27/18 Van Dupont MD [address] [place] [address] [email or web address] Primary Oncologist Medical Oncology 10/14/18 Arsh Mata MD [address] [place] [address] [email or web address] Treatment Team Hematology and Oncology 10/16/23 Eufemia Caro RN [address] [place] [address] [email or web address] mason Associate Infusion Nurse 10/16/23 documented as of this encounter Additional Source Comments The information contained in this document represents components of the legal health record. It is not the complete legal health record.[facility]
--- OUTSIDE RECORDS SUMMARY | 2025-05-06 16:42 | XMS_ITS | Encounter Summary ---
Author Organization [facility] Address [address] [employer] [facility] [address] [place] [address] Phone Care Team Providers Care Day Care Aide Name Role Phone Debra Muniz MD Unavailable Mohinder Fan MD Unavailable [phone] Van Dupont MD Unavailable Markos James MD Primary Care Provider [phone] Arsh Mata MD Unavailable [phone] Eufemia Caro RN Unavailable MELISSA [email or web address].[facility] Encounter Details Date Type Department Care Team (Late st Contact Info) Description 02/06/2017 Procedure Pass [facility] Imaging [address] [place] [address] Social History Tobacco Use Types Packs/Day Years [...] Description 05/12/2025 11:30 AM EDT Blood Draw [facility] Malignancies [address] [facility], 9th Floor, [address] [place] [address] Van Dupont MD [address] [place] [address] [email or web address] 05/12/2025 12:30 PM EDT Office Visit [facility] Malignancies [address] [facility], 9th Floor, [address] [place] [address] Van Dupont MD [address] [place] [address] [email or web address] documented as of this encounter [...] documented as of this encounter Care Teams Day Care Aide Relationship Specialty Start Date End Date Markos James MD [address] [facility] [address] [place] [phone] PCP - General Internal Medicine 12/07/20 Debra Muniz MD [address] [place] [address] Medical Oncology 05/27/18 Mohinder Fan MD [address] [place] [address] Consulting Provider Geriatric Psychiatry 05/27/18 Van Dupont MD [address] [place] [address] [email or web address] Primary Oncologist Medical Oncology 10/14/18 Arsh Mata MD [address] [place] [address] [email or web address] Treatment Team Hematology and Oncology 10/16/23 Eufemia Caro, RN [address] [place] [address] [email or web address] mason Associate Infusion Nurse 10/16/23 documented as of this encounter Additional Source Comments The information contained in this document represents components of the legal health record. It is not the complete legal health record.[facility]
--- OUTSIDE RECORDS SUMMARY | 2025-05-06 16:42 | XMS_ITS | Encounter Summary ---
Author Organization [facility] Address [address] [facility] [address] [place] [address] Phone Care Team Providers Care Research Quality Assurance Specialist Name Role Phone Debra Muniz MD Unavailable Mohinder Fan MD Unavailable [phone] Van Dupont MD Unavailable Markos James MD Primary Care Provider [phone] Arsh Mata MD Unavailable [phone] Eufemia Caro RN Unavailable MELISSA [email or web address] Encounter Details Date Type Department Care Team (Late st Contact Info) Description 09/13/2017 Procedure Pass [facility] [address] [place] [address] Social History Tobacco Use Types Packs/Day Years [...] Description 05/12/2025 11:30 AM EDT Blood Draw [facility] for [facility]ology Malignancies [address] [facility], 9th Floor, [address] [place], [place] [phone] Van Dupont MD [address] [place] [address] [email or web address] 05/12/2025 12:30 PM EDT Office Visit [facility] for Hematology Malignancies [address] [facility], 9th Floor, [address] [place] [address] Van Dupont MD [address] [place] [address] [email or web address] documented as of this encounter Visit [...] documented as of this encounter Care Teams Research Quality Assurance Specialist Relationship Specialty Start Date End Date Markos James MD [address] [place] [phone] PCP - General Internal Medicine 12/07/20 Debra Muniz MD [address] [place] [address] Medical Oncology 05/27/18 Mohinder Fan MD [address] [place] [address] Consulting Provider Geriatric Psychiatry 05/27/18 Van Dupont MD [address] [place] [address] [email or web address] Primary Oncologist Medical Oncology 10/14/18 Arsh Mata MD [address] [place] [address] [email or web address] Treatment Team Hematology and Oncology 10/16/23 Eufemia Caro RN [address] [place] [address] [email or web address] mason Associate Infusion Nurse 10/16/23 documented as of this encounter Additional Source Comments The information contained in this document represents components of the legal health record. It is not the complete legal health record.[facility]
--- OUTSIDE RECORDS SUMMARY | 2025-05-06 16:42 | XMS_ITS | Encounter Summary ---
Author Organization [facility] Address [address] [facility] [address] [place] [address] Phone Care Team Providers Care News Copy Editor Name Role Phone Debra Muniz MD Unavailable Mohinder Fan MD Unavailable [phone] Van Dupont MD Unavailable Markos James MD Primary Care Provider [phone] Arsh Mata MD Unavailable [phone] Eufemia Caro RN Unavailable MELISSA [email or web address] [email or web address].[facility] Encounter Details Date Type Department Care Team (Late st Contact Info) Description 01/24/2017 Procedure Pass [facility] Imaging [address] [place] [address] Social History Tobacco Use Types Packs/Day Years [...] 05/12/2025 11:30 AM EDT Blood Draw [facility] Malignancies [address] [facility], 9th Floor, [address] [place] [address] Van Dupont MD 55 [place] [address] [email or web address] 05/12/2025 12:30 PM EDT Office Visit [facility] Malignancies [address] [facility], 9th Floor, [address] [place] [address] Van Dupont MD [address] [place] [address] [email or web address] documented as of this [...] documented as of this encounter Care Teams News Copy Editor Relationship Specialty Start Date End Date Markos James MD [address] [facility] [address] [place] [phone] PCP - General Internal Medicine 12/07/20 Debra Muniz MD [address] [place] [address] Medical Oncology 05/27/18 Mohinder Fan MD [address] [place] [address] Consulting Provider Geriatric Psychiatry 05/27/18 Van Dupont MD [address] [place] [address] [email or web address] Primary Oncologist Medical Oncology 10/14/18 Arsh Mata MD [address] [place] [address] [email or web address] [email or web address] Treatment Team Hematology and Oncology 10/16/23 Eufemia Caro, RN 55 [place] [address] [email or web address] mason Associate Infusion Nurse 10/16/23 documented as of this encounter Additional Source Comments The information contained in this document represents components of the legal health record. It is not the complete legal health record.[facility]
--- OUTSIDE RECORDS SUMMARY | 2025-05-06 16:42 | XMS_ITS | Clinical Summary ---
Author Organization [facility] Address 175 [place] [address] Phone Care Team Providers Care Bmx Rider Name Role Phone Markos James MD Primary Care Provider [phone] Allergies Active Allergy Reactions Criticality Noted Date [...] 02/08/1964 Zoster Vaccines (1 of 2) 02/08/1964 Falls Risk Assessment 08/05/2022 Medicare Annual Wellness Visit 08/05/2022 Osteoporosis Screening (Bone Density Screening) 08/05/2022 Social Influencers of Health Screening 08/05/2022 Depression Screening 09/03/2024 COVID-19 Vaccine (8 - Moderna risk season) 2024 05/27/2024, 06/18/2023, 05/18/2022, Additional history exists Influenza Vaccine (#1) 2025 , 06/18/2023, 06/07/2022, Additional history exists Cholesterol Screening (Lipid Panel) 09/18/2028 09/18/2023 Pneumococcal Vaccine: 50+ Years Completed 10/07/2018, 01/15/2017 RSV Immunization Adult Patients Completed 07/14/2023 HIB Vaccines Aged Out No [...] age to complete this topic Insurance [facility]ARE [facility] Care Teams Bmx Rider Relationship Specialty Start Date End Date Markos James MD NPI: [id number] [place] [address] [address] [facility] [place] [address] PCP - General 01/08/24
--- OUTSIDE RECORDS SUMMARY | 2025-05-06 16:42 | XMS_ITS | Encounter Summary ---
Author Organization [facility] Address [address] [facility] [address] [place] [address] Phone Care Team Providers Care Seafood Harvester Name Role Phone Debra Muniz MD Unavailable Mohinder Fan MD Unavailable [phone] Van Dupont MD Unavailable Markos James MD Primary Care Provider [phone] Arsh Mata MD Unavailable [phone] Eufemia Caro RN Unavailable MELISSA [email or web address] [email or web address] Encounter Details Date Type Department Care Team (Late st Contact Info) Description 12/27/[address] Imaging - [address], [address] [place], [place] [phone] Social History Tobacco Use Types Packs/Day Years [...] Description 05/12/2025 11:30 AM EDT Blood Draw [facility] Center for Hematology Malignancies [address] [facility], 9th Floor, [address] [place] [address] Van Dupont MD 55 [place] [address] [email or web address] 05/12/2025 12:30 PM EDT Office Visit [facility] Center for Hematology Malignancies [address] [facility], 9th Floor, [address] [place] [address] Van Dpuont MD [address] [place] [address] [email or web address] documented as of this encounter [...] documented as of this encounter Care Teams Seafood Harvester Relationship Specialty Start Date End Date Jacob, Markos Awan MD [address] [facility] [address] [place] [phone] PCP - General Internal Medicine 12/07/20 Debra Muniz MD [address] [place] [address] Medical Oncology 05/27/18 Mohinder Fan MD [address] [place] [address] Consulting Provider Geriatric Psychiatry 05/27/18 Van Dupont MD 55 [place] [address] [email or web address] u Primary Oncologist Medical Oncology 10/14/18 Arsh Mata MD [address] [place] [address] [email or web address] Treatment Team Hematology and Oncology 10/16/23 Eufemia Caro, RN [address] [place] [address] [email or web address] [email or web address].basia mason Associate Infusion Nurse 10/16/23 documented as of this encounter Additional Source Comments The information contained in this document represents components of the legal health record. It is not the complete legal health record.[facility]
--- OUTSIDE RECORDS SUMMARY | 2025-05-06 16:42 | XMS_ITS | Patient Health Record ---
Author Organization [facility] christine BetancourtJa Address [address] [place] [address] Care Team Providers Care Communication Coordinator Name Role Phone Corina ATKINS, Mandeep Primary Care Provider Ashvin Henderson Unavailable [phone] Allergies Allergen (clinical drug ingredient) Drug/Non Drug [...] [employer] [address] [facility] [place] [address] [id number] Moni Cole Self - patient is the insured [employer] [address] [place] [address] [phone] [id number] Moni Cole Self - patient is the [...]
--- OUTSIDE RECORDS SUMMARY | 2025-05-06 16:42 | XMS_ITS | Encounter Summary ---
Author Organization [facility] Address [address] [employer] [address] [address] Phone Care Team Providers Care Laboratory Aide Name Role Phone Debra Muniz MD Unavailable Mohinder Fan MD Unavailable [phone] Van Dupont MD Unavailable Markos James MD Primary Care Provider Arsh Mata MD Unavailable [phone] Eufemia Caro RN Unavailable MELISSA [email or web address] Encounter Details Date Type Department Care Team (Late st Contact Info) Description 05/12/2024 Procedure Pass [address] [place] [address] Social History Tobacco Use Types Packs/Day Years [...] [facility] [address] [place] [address], 9th Floor, [address] [place] [address] Van Dupont MD [address] [place] [address] [email or web address] 05/12/2025 12:30 PM EDT Office Visit [facility] Malignancies [address] [place] [address], 9th Floor, [address] [place] [address] aVn Dupont MD [address] [place] [address] [email or web address] documented as of this encounter Goals Goal Patient Goal Type Associated Problems Recent Progress Patient-Stated? Author Acute Care Plan Acute Care Plan No Carolina Jackson RN Note: Cellular therapy/ Immune Effector Cell patient. Patient received cellular therapy product Amol-reese on 11/01/23 Page the on-call Immune Effector Cell Attending via www.[email or web address] Login [facility] Page immediately if patient presents within [...] Patients should be admitted to [place] [address] to the Immune Effector Cell Service. documented as of this encounter Visit Diagnoses Not on filedocumented in this encounter Care Teams Laboratory Aide Relationship Specialty Start Date End Date Po, Markos Awan MD [address] [place] [address] [place] [phone] PCP - General Internal Medicine 12/07/20 Debra Muniz MD [address] [place] [address] Medical Oncology 05/27/18 Mohinder Fan MD [address] [place] [address] Consulting Provider Geriatric Psychiatry 05/27/18 Van Dupont MD [address] [place] [address] [email or web address] Primary Oncologist Medical Oncology 10/14/18 Arsh Mata MD [address] [place] [address] [email or web address] Treatment Team Hematology and Oncology 10/16/23 Eufemia Caro RN [address] [place] [address] [email or web address] [email or web address] Associate Infusion Nurse 10/16/23 documented as of this encounter Additional Source Comments The information contained in this document represents components of the legal health record. It is not the complete legal health record.[facility]
--- OUTSIDE RECORDS SUMMARY | 2025-05-06 16:42 | XMS_ITS | Encounter Summary ---
Author Organization [facility] Address [address] [facility] [address] [place] [address] Phone Care Team Providers Care Instructor Flying Name Role Phone Debra Muniz MD Unavailable [phone] Mohinder Fan MD Unavailable [phone] Van Dupont MD Unavailable Markos James MD Primary Care Provider Arsh Mata MD Unavailable [phone] Eufemia Caro RN Unavailable MELISSA [email or web address] beds at the [facility] Reason for Visit * Reason Comments Medication Refill Encounter Details Date Type Department Care Team ([facility] st Contact Info) Description 12/12/2024 Refill [facility] Psychiatry Oncology [address] [place] [address], 10th Floor, [address] [place] [address] Sri Gandhi MD [address] [place] [address] [email or web address] Medication Refill Social History Tobacco Use Types Packs/Day Years [...] AM EDT Blood Draw [facility]emat[facility] Malignancies [address] [place] [address], 9th Floor, [address] [place] [address] Van Dupont MD [address] [place] [address] [email or web address] 05/12/2025 12:30 PM EDT Office Visit [facility]ematology Malignancies [address] [place] [address], 9th Floor, [address] [place] [address] Van Dupont MD [address] [place] [address] [email or web address] documented as of this encounter Goals Goal Patient Goal Type Associated Problems Recent Progress Patient-Stated? Author Acute Care Plan Acute Care Plan No Carolina Jackson RN Note: Cellular therapy/ Immune Effector Cell patient. Patient received cellular therapy product Amol-reese on 11/01/23 Page the on-call Immune Effector Cell Attending via [email or web address] Login [facility] Page immediately if patient presents within [...] team evaluation. Patients should be admitted to [place] [address] to the Immune Effector Cell Service. documented as of this encounter Visit Diagnoses Diagnosis Posttraumatic stress disorder documented in this encounter Care Teams Instructor Flying Relationship Specialty Start Date End Date Po, Markos Awan MD [address] [place] [address] [place] [phone] PCP - General Internal Medicine 12/07/20 Debra Muniz MD [address] [place] [address] Medical Oncology 05/27/18 Mohinder Fan MD [address] [place] [address] Consulting Provider Geriatric Psychiatry 05/27/18 Van Dupont MD [address] [place] [address] [email or web address] Primary Oncologist Medical Oncology 10/14/18 Arsh Mata MD [address] [place] [address] Treatment Team Hematology and Oncology 10/16/23 Eufemia Caro, NIKOLAS [address] [place] [address] [email or web address] [email or web address] Associate Infusion Nurse 10/16/23 documented as of this encounter Additional Source Comments The information contained in this document represents components of the legal health record. It is not the complete legal health record.[facility]
--- OUTSIDE RECORDS SUMMARY | 2025-05-06 16:42 | XMS_ITS | Encounter Summary ---
Author Organization [employer] Address [address] [facility] 7t [place] [address] Care Team Providers Care Rubber Tile Floor Layer Name Role Phone Unavailable Primary Care [...]
--- OUTSIDE RECORDS SUMMARY | 2025-05-06 16:42 | XMS_ITS | Encounter Summary ---
Author Organization [facility] Address [address] [facility] [address] [place] [address] Phone Care Team Providers Care Vp Public Relations Name Role Phone Debra Muniz MD Unavailable Mohinder Fan MD Unavailable [phone] Van Dupont MD Unavailable Markos James MD Primary Care Provider [phone] Arsh Mata MD Unavailable [phone] Eufemia Caro RN Unavailable MELISSA [email or web address] Encounter Details Date Type Department Care Team (Late st Contact Info) Description 02/06/2017 Procedure Pass [facility] [address] [place] [address] Social History Tobacco Use Types Packs/Day Years [...] Description 05/12/2025 11:30 [address] ED[address] [facility] Malignancies [address] [facility], 9th Floor, [address] [place] [address] Van Dupont MD [address] [place] [address] [email or web address] 05/12/2025 12:30 PM EDT Office [facility] Malignancies [address] [facility], 9th Floor, [address] [place] [address] Van Dupont MD [address] [place] [address] [email or web address] documented as [...] documented as of this encounter Care Teams Vp Public Relations Relationship Specialty Start Date End Date Markos James MD [address] [place] [phone] PCP - General Internal Medicine 12/07/20 Debra Muniz MD [address] [place] [address] Medical Oncology 05/27/18 Mohinder Fan MD [address] [place] [address] Consulting Provider Geriatric Psychiatry 05/27/18 Van Dupont MD [address] [place] [address] [email or web address] Primary Oncologist Medical Oncology 10/14/18 Arsh Mata MD [address] [place] [address] [email or web address] Treatment Team Hematology and Oncology 10/16/23 Eufemia Caro, RN [address] [place] [address] [email or web address] [email or web address] Associate Infusion Nurse 10/16/23 documented as of this encounter Additional Source Comments The information contained in this document represents components of the legal health record. It is not the complete legal health record.[facility]
--- OUTSIDE RECORDS SUMMARY | 2025-05-06 16:42 | XMS_ITS | Encounter Summary ---
Author Organization [facility] Address [address] [facility] [address] [place] [address] Phone Care Team Providers Care Rn Testing Name Role Phone Debra Muniz MD Unavailable Mohinder Fan MD Unavailable [phone] Van Dupont MD Unavailable Markos James MD Primary Care Provider Arsh Mata MD Unavailable [phone] Eufemia Caro RN Unavailable MELISSA [email or web address] Encounter Details Date Type Department Care Team (Late st Contact Info) Description 12/14/2023 Procedure Pass [facility] [address] [facility], 6th [place] [address] Social History Tobacco Use Types Packs/Day Years [...] Description 05/12/2025 11:30 AM EDT Blood Draw [facility] Malignancies [address] [place] [address], 9th Floor, [address] [place] [address] Van Dupont MD [address] [place] [address] [email or web address] 05/12/2025 12:30 PM EDT Office Visit [facility] Malignancies [address] [place] [address], 9th Floor, [address] [place] [address] Van Dupont MD [address] [place] [address] [email or web address] documented as of this encounter Goals Goal Patient Goal Type Associated Problems Recent Progress Patient-Stated? Author Acute Care Plan Acute Care Plan Carolina Mohan RN Note: Cellular therapy/ Immune Effector Cell patient. Patient received cellular therapy product Amol-reese on 11/01/23 Page the on-call Immune Effector Cell Attending via www.[email or web address] Login [facility] Page immediately if patient presents within [...] team evaluation. Patients should be admitted to [place] [address] to the Immune Effector Cell Service. documented as of this encounter Visit Diagnoses Not on filedocumented in this encounter Care Teams Rn Testing Relationship Specialty Start Date End Date Po, Markos Awan MD [address] [place] [address] [place] [address] [phone] PCP - General Internal Medicine 12/07/20 Debra Muniz MD [address] [place] [address] Medical Oncology 05/27/18 Mohinder Fan MD [address] [place] [address] Consulting Provider Geriatric Psychiatry 05/27/18 Van Dupont MD [address] [place] [address] [email or web address] Primary Oncologist Medical Oncology 10/14/18 Arsh Mata MD [address] [place] [address] [email or web address] Treatment Team Hematology and Oncology 10/16/23 Eufemia Caro RN [address] [place] [address] [email or web address] [email or web address] Associate Infusion Nurse 10/16/23 documented as of this encounter Additional Source Comments The information contained in this document represents components of the legal health record. It is not the complete legal health record.[facility]
--- OUTSIDE RECORDS SUMMARY | 2025-05-06 16:42 | XMS_ITS | Encounter Summary ---
Author Organization [facility] Address [address] [place] [address] [address] [place] [address] Phone Care Team Providers Care Central Scheduler Name Role Phone Debra Muniz MD Unavailable [phone] Mohinder Fan MD Unavailable [phone] Van Dupont MD Unavailable Markos aJmes MD Primary Care Provider Arsh Mata MD Unavailable [phone] Eufemia Caro RN Unavailable MELISSA [email or web address] Encounter Details Date Type Department Care Team (Late st Contact Info) Description 06/05/2022 Procedure Pass [facility] [place] [address] [facility], 6th [place] [address] Social History Tobacco Use Types Packs/Day Years [...] Description 05/12/2025 11:30 AM EDT Blood Draw [facility] for Hematology Malignancies [address] [facility], 9th Floor, [address] [place] [address] Van Dupont MD [address] [place] [address] [email or web address] 05/12/2025 12:30 PM EDT Office Visit [facility] for Hematology Malignancies [address] [facility], 9th Floor, [address] [place] [address] Van Dupont MD [address] [place] [address] [email or web address] documented as of this encounter [...] documented as of this encounter Care Teams Central Scheduler Relationship Specialty Start Date End Date Po, Markos Awan MD [address] [place] [phone] PCP - General Internal Medicine 12/07/20 Debra Muniz MD [address] [place] [address] Medical Oncology 05/27/18 Mohinder Fan MD [address] [place] [address] Consulting Provider Geriatric Psychiatry 05/27/18 Van Dupont MD [address] [place] [address] [email or web address] Primary Oncologist Medical Oncology 10/14/18 Arsh Mata MD [address] [place] [address] [email or web address] Treatment Team Hematology and Oncology 10/16/23 Eufemia Caro, RN [address] [place] [address] [email or web address] [email or web address] Associate Infusion Nurse 10/16/23 documented as of this encounter Additional Source Comments The information contained in this document represents components of the legal health record. It is not the complete legal health record.[facility]
--- OUTSIDE RECORDS SUMMARY | 2025-05-06 16:43 | XMS_ITS | Clinical Summary ---
Author Organization 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 Tolerated cefepime test dose 11/03. Morphine 10/31/2023 Vagal response s/p morphine on 10/31/23 in ED. Nauseated+diaphoretic with hypotension SBP 70s and bradycardia 30s. Quickly self-resolved. Oxycodone Itching 04/17/2017 and also mental status unwell Medications budesonide-formot gene (SYMBICORT) 160-4.5 mcg/actuation inhaler Inhale 2 puffs into the lungs 2 (two) times a day. Active pantoprazole (PROTONIX) 40 MG tablet Take 40 mg by mouth daily. Active losartan (COZAAR) 100 MG tablet Take 100 mg by mouth daily. Active metoprolol succinate (TOPROL-XL) 50 MG 24 hr tablet Take 50 mg by mouth daily. Active cyanocobalamin, vitamin B-12, 1000 MCG tablet Take 1 tablet (1,000 mcg total) by mouth daily. 30 tablet 5 1 Active LORazepam (ATIVAN) 0.5 MG tabletIndications :anxiety,cancer chemotherapy-ed bony nausea and vomiting,insomnia Take 0.5 mg by mouth 2 (two) times a day as needed for anxiety. Indications: anxious, nausea and vomiting caused by cancer drugs, difficulty sleeping Active sulfamethoxazole- trimethoprim (BACTRIM DS) 800-160 mg per tablet 3 (three) times a week on Sunday, Sunday, Sunday. 3 Active diphenoxylate-atr opine (LOMOTIL) 2.5-0.025 mg per tablet Take 1 tablet by mouth 4 (four) times a day as needed for diarrhea. Active therapeutic multivitamin tablet Take 1 tablet by mouth daily. Active chlorpheniramine (CHLOR-TRIMETON) 4 mg tablet Take 4 mg by mouth every 6 (six) hours as needed for allergies. Active ascorbic acid, vitamin C, (VITAMIN C) 500 mg Chew Take 500 mg by mouth daily. Active cholecalciferol (VITAMIN D3) 2,000 unit tablet Take 2,000 Units by mouth daily. Active gabapentin (NEURONTIN) 100 MG capsule Take 100 mg by mouth nightly at bedtime. Active acetaminophen (TYLENOL) 500 mg capsule Take 500 mg by mouth every 6 (six) hours as needed for pain (specific location in comments). Active diclofenac sodium (VOLTAREN) 1 % Gel Apply 2 g topically 4 (four) times a day as needed. 50 g 4 Active atorvastatin (LIPITOR) 20 MG tablet Take 1 tablet (20 mg total) by mouth daily. 30 tablet 4 Active triamcinolone (NASACORT AQ) 55 mcg/actuation nasal inhaler 2 sprays by Nasal route daily as needed. 1 each 12 4 Active desvenlafaxine succinate (PRISTIQ) 25 mg 24 hr tabletIndications :Posttraumatic stress disorder Take 1 tablet (25 mg total) by mouth daily. 30 tablet 5 5 Active meloxicam (MOBIC) 15 MG tablet Take 15 mg by mouth daily. 4 Active Active Problems Patient Care Coordination No te Formatting of this note migh t be different from the original. Statement of completion of cellular therapy team care. Cleared to return to [facility] Myeloma team: As of DATE 11/30/23 - Patient is currently without any acute Cell Therapy related signs and symptoms and has been cleared by their Cell Therapy MD to transfer care back to their primary oncology team. MD to MD pass off will occur separately. For any questions please contact: [facility] Cancer Center: Cellular Therapy Team phone: [phone] [facility] CAR-T fax: [phone] Problem Noted Date Diagnosed Date Unspecified severe protein-calorie malnutrition 11/07/2023 Assessment & Plan (11/07/2023 1:21 PM EST): Per Nutrition note 11/05, weight loss >5% in one month. - Nutrition following - Encourage high calorie, high protein meals and snacks Encounter for palliative care 11/02/2023 Overview (11/29/2023): Seen by inpatient consult team during hospitalization for CAR-T therapy 10/31/23. Established outpatient palliative care with Dr. Ricks 11/29/23. Assessment & Plan (01/15/2025 1:24 PM EDT): #Multiple joint pain/arthritis Multiple joint pain due to known arthritis, likely exacerbated by recent Covid infection. Per ortho note from 10/02/24, no concerns this is due to multiple myeloma as it is in remission since chemo and T-cell replacement. Patient is also following with oncologist Dr. Van Dupont for cancer surveillance - Continue acetaminophen 650 mg PO Q6H PRN, pain - Continue to use heat pads to affected joints as needed - Patient is already receiving treatment for recent Covid infection per her report (also no chest pain or shortness of breath reported-advised to stay hydrated). - Cancer surveillance per oncology #Anxiety: No concerns reported today, Per chart review from [facility] visit with palliative care on 08/21/24 Moni has a history of anxiety, is seen by outpatient Psycho-Oncology team (Dr. Gandhi), takes lorazepam PRN with excellent effect. Anxiety is exacerbated by multiple sources of uncertainty related to her cancer diagnosis and treatment. She felt very safe at [facility] and feels she has received excellent medical care through [facility] cancer center. She has some trepidation about returning to community setting for the bulk of her medical care and worries that clinicians at other hospitals won't have the same familiarity about CAR-T therapy and special considerations she might need. - Continue lorazepam PRN for now, caution given fall risk and age - Can consider olanzapine 2.5-5 mg PO Q6H PRN, anxiety, insomnia - Provided reassurance that she can still call the [facility] cancer center for advice, day or night #ACP: Code status: full code HCP: Davon (form on file) Assessment & Plan (08/21/2024 4:06 PM EST): #Cancer related pain: During hospitalization Moni had severe pain in the L scapula as well as bothersome headaches, both attributed to known lytic skull lesions. After CAR-T therapy she also had full body pains, which resolved but now recurring. Her most bothersome source of pain is her L knee which is longstanding and has been followed by orthopedist, who would recommend knee replacement but unable to do so because of her multiple myeloma. She also has new SI joint pain and is getting a steroid injection this month, - Continue acetaminophen 650 mg PO Q6H PRN, pain #Anxiety: Moni has a history of anxiety, is seen by outpatient Psycho-Oncology team (Dr. Gandhi), takes lorazepam PRN with excellent effect. Anxiety is exacerbated by multiple sources of uncertainty related to her cancer diagnosis and treatment. She felt very safe at [facility] and feels she has received excellent medical care through [facility] cancer center. She has some trepidation about returning to community setting for the bulk of her medical care and worries that clinicians at other hospitals won't have the same familiarity about CAR-T therapy and special considerations she might need. - Continue lorazepam PRN for now, caution given fall risk and age - Can consider olanzapine 2.5-5 mg PO Q6H PRN, anxiety, insomnia - Provided reassurance that she can still call the [facility] cancer center for advice, day or night #ACP: Code status: full code HCP: Davon (form on file) Assessment & Plan (05/22/2024 2:45 PM EDT): #Cancer related pain: During hospitalization Moni had severe pain in the L scapula as well as bothersome headaches, both attributed to known lytic skull lesions. After CAR-T therapy she also had full body pains, which resolved but now recurring. Her most bothersome source of pain is her L knee which is longstanding and has been followed by orthopedist, who would recommend knee replacement but unable to do so because of her multiple myeloma. She also has new SI joint pain and is getting a steroid injection this month, - Continue acetaminophen 650 mg PO Q6H PRN, pain #Anxiety: Moni has a history of anxiety, is seen by outpatient Psycho-Oncology team (Dr. Gandhi), takes lorazepam PRN with excellent effect. Anxiety is exacerbated by multiple sources of uncertainty related to her cancer diagnosis and treatment. She felt very safe at [facility] and feels she has received excellent medical care through [facility] cancer center. She has some trepidation about returning to community setting for the bulk of her medical care and worries that clinicians at other hospitals won't have the same familiarity about CAR-T therapy and special considerations she might need. - Continue lorazepam PRN for now, caution given fall risk and age - Can consider olanzapine 2.5-5 mg PO Q6H PRN, anxiety, insomnia - Provided reassurance that she can still call the [facility] cancer center for advice, day or night #ACP: Code status: full code HCP: Davon (form on file) Assessment & Plan (04/03/2024 2:04 PM EDT): #Cancer related pain: During hospitalization Moni had severe pain in the L scapula as well as bothersome headaches, both attributed to known lytic skull lesions. After CAR-T therapy she also had full body pains, which resolved but now recurring. Her most bothersome source of pain is her L knee which is longstanding and has been followed by orthopedist, who would recommend knee replacement but unable to do so because of her multiple myeloma. She also has new SI joint pain and is getting a steroid injection this month, - Continue acetaminophen 650 mg PO Q6H PRN, pain - Continue morphine 2-4 mg PO solution Q4H PRN, moderate pain unresponsive to acetaminophen #Anxiety: Moni has a history of anxiety, is seen by outpatient Psycho-Oncology team (Dr. Gandhi), takes lorazepam PRN with excellent effect. Anxiety is exacerbated by multiple sources of uncertainty related to her cancer diagnosis and treatment. She felt very safe at [facility] and feels she has received excellent medical care through [facility] cancer center. She has some trepidation about returning to community setting for the bulk of her medical care and worries that clinicians at other hospitals won't have the same familiarity about CAR-T therapy and special considerations she might need. - Continue lorazepam PRN for now, caution given fall risk and age - Can consider olanzapine 2.5-5 mg PO Q6H PRN, anxiety, insomnia - Provided reassurance that she can still call the [facility] cancer center for advice, day or night #ACP: Code status: full code HCP: Davon (form on file) Assessment & Plan (11/29/2023 3:23 PM EDT): #Cancer related pain: During hospitalization Moni had severe pain in the L scapula as well as bothersome headaches, both attributed to known lytic skull lesions. After CAR-T therapy she also had full body pains, which are now resolved. Overall she is feeling much better. Her most bothersome source of pain is her L knee which is longstanding and has been followed by orthopedist, who would recommend knee replacement but unable to do so because of her multiple myeloma. - Continue acetaminophen 650 mg PO Q6H PRN, pain - Continue morphine 2-4 mg PO solution Q4H PRN, moderate pain unresponsive to acetaminophen #Anxiety: Moni has a history of anxiety, is seen by outpatient Psycho-Oncology team (Dr. Gandhi), takes lorazepam PRN with excellent effect. Anxiety is exacerbated by multiple sources of uncertainty related to her cancer diagnosis and treatment. She felt very safe at [facility] and feels she has received excellent medical care through [facility] cancer center. She has some trepidation about returning to community setting for the bulk of her medical care and worries that clinicians at other hospitals won't have the same familiarity about CAR-T therapy and special considerations she might need. 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 She completed outpatient lymphodepleting chemo then presented to ED on 10/31 hours prior to scheduled admission with left side scapular pain/pleuritic chest pain, ACS now ruled out. Remains admitted for Amol-reese CAR-T (D0 = 11/01/23). Palliative care has been following for symptom management. #Cancer related pain: Moni has two main sites of pain. She has acute L scapula pain which is likely somatic, inflammatory, and neuropathic due to lytic lesions seen on recent imaging. Her pain has been well managed after starting low dose oral morphine. Of note, she previously received 4mg of IV morphine in the ED with good relief, though experienced vagal epsiode following administration. Notes that she has tried oxycodone in the past which has caused itching. Has tolerated morphine in the past, most recently 1 mg IV prior to bone marrow biopsy on 10/26/2023, whereas she did tolerate morphine in the past. Moni also reported some new headache pain that radiates down her mandible, which is likely somatic, inflammatory, and neuropathic due to lytic skull lesions also seen on recent imaging. We did discuss starting a low dose long acting pain medication, such as methadone, given the neuropathic component of her pain. However, given her PRN use has been minimal and concerns about side effects with need for close CAR-T monitoring, will hold off at this time. - Continue acetaminophen 650 mg PO Q6H PRN, pain - Continue morphine 2-4 mg PO solution Q4H PRN, moderate pain unresponsive to acetaminophen - Recommend morphine 1-2 mg IV Q3H PRN, severe pain unresponsive to PO morphine - Monitor for opioid side effects, including but not limited to, constipation, pruritis, myoclonus, somnolence, confusion, respiratory depression. #Anxiety: Moni has a history of anxiety, is seen by outpatient Psycho-Oncology team (Dr. Gandhi), takes lorazepam PRN with excellent effect. This anxiety has been triggered while hospitalized in the setting of cancer diagnosis, uncertainty about prognosis with CAR-T, and worries about being a burden on her and how she will cope out of the hospital. Moni has felt very safe and well cared for at [facility] and is understandably anxious about being eventually discharged. - Moni will consider a mantra she can repeat to herself when she has pain to reground and try to remain present and calm when pain is mild, discussed options such as I am safe I am okay I have tools to treat my pain, etc. - OK to continue lorazepam, though would recommend caution with benzodiazepines given high risk of delirium as well as concomitant opioid use - Consider olanzapine 2.5-5 mg PO Q6H PRN, anxiety, insomnia - If begin methadone (as above) would recommend not giving lorazepam at night to ensure decreased risk of over sedation #Constipation: At risk for related to opioid use. History of IBS and chronic diarrhea. - Consider Miralax 17g PO daily PRN - Consider Senna 2 tabs PO BID PRN - Titrate to goal of one formed BM every 1-2 days #Diarrhea: History of chronic diarrhea iso IBS and now at additional risk for treatment-related diarrhea. However, also has risks of opioid induced constipation - Continue loperamide 4 mg PO QID PRN diarrhea - If needed, add Lomotil 2 tabs PO QID PRN diarrhea as second line agent. - Continue to monitor bowels closely #ACP: Code status: full code HCP: No HCP is documented in the chart. Please ensure form is signed and scanned into EPIC record. Pain 10/31/2023 Assessment & Plan (11/07/2023 1:11 PM EST): # L-scapular / L-sided CP # Headache Presented to ED on 10/31 AM prior to scheduled CAR-T admission for left sided chest/scapular pain which worsened since becoming less mobile due to fatigue from chemotherapy. Trop unremarkable. ECG showed NSR without ischemic changes. Hx of multiple myeloma with known lytic lesions at scapula. Received morphine 4mg with good pain relief however had nausea s/p Morphine with a vagal episode (brief hypotension SBP 70s and bradycardia to HR 30s), self resolved. Left scapular pain likely musculoskeletal vs cancer related. 10/23/23 OSH PET w/ intensely avid L-2nd rib lateral lesion and less avid L-scapular lesion. Also c/o newer headache, initially localizing to known lytic lesion (L-posterior parietal bone full thickness of calvarium on recent PET) but as of 11/01 AM radiating across top of head as well. D/c'ed tramadol per pall care instructions. C/o newer DIEGO radiating down mandible thought to be 2/2 lytic skull lesions around 11/04. Taking Morphine oral solution PRN started with good effect. - Appreciate palliative care following - Tylenol 650mg PO Q6H PRN - Lidocaine patch alternating w/ Voltaren gel PRN for scapular pain - Morphine 2-4 mg PO solution Q4H PRN, moderate pain unresponsive to acetaminophen - Avoid opiates if able due to hx of itching/vagal episode - Bowel regimen PRN - Deferring start of methadone at this time - PT/OT/massage therapy Multiple myeloma 10/31/2023 Chronic health problem 10/29/2023 Assessment & Plan (11/07/2023 1:31 PM EST): # HTN: Well controlled on home amlodipine 5mg daily, losartan 100mg daily, and metoprolol succinate 50mg daily. Metoprolol succinate fractionated on admission. - Amlodipine 5mg daily w/ hold parameters - Losartan 100mg daily w/ hold parameters - Metoprolol tartrate 12.5mg q6h # HLD: - Hold home ASA 81mg daily - Continue home atorvastatin 20mg nightly # Anxiety Follows Psychiatrist Dr. Sri Gandhi. Currently managed with Desvenlafaxine succinate Pristiq and Ativan PRN. - Desvenlafaxine succinate 25mg daily (non-formulary) - Lorazepam 0.5mg Q8H PRN for anxiety/insomnia/nausea # Neuropathy: Baseline neuropathy to hands/feet. Stable on home gabapentin, tramadol PRN, and vitamin B complex. Tramadol stopped per pall care as mentioned elsewhere. - Gabapentin 100mg nightly # b/l knee pain 2/2 OA: Has baseline knee pain which is stable. Takes Meloxicam daily. - Hold systemic NSAIDS including Meloxicam with CAR-T admission - Topical Voltaren PRN - PT/OT/massage therapy # GERD: Takes Pantoprazole 40mg daily at home. - Omeprazole 20mg daily while inpatient (oral Pantoprazole is non-formulary) # COPD: Home symbicort daily and albuterol PRN - Advair 2 puffs BID (Symbiort is non-formulary) - Albuterol 90 mcg/actuation inhaler 2 puffs q6h PRN for wheezing # chronic rhinitis: Takes Triamcinolone 55mcg/actuation nasal inhaler daily and antihistamine Chlorpheniramine 5mg q6h PRN - Cetirizine PRN # IBS Hx of chronic diarrhea. Uses Pepto/Lomotil/Imodium PRN. - Monitor BMs - Bowel regimen PRN Assessment & Plan (10/31/2023 8:02 AM EST): # HTN: Well controlled on home Amlodipine 5mg daily, Losartan 100mg daily, and Metoprolol succinate 50mg daily. - Amlodipine 5mg daily - Losartan 100mg daily - Metoprolol succinate 50mg daily. # HLD: - Hold ASA 81mg daily - continue home Atorvastatin 20mg daily # anxiety Follows Psychiatrist Dr. Sri Gandhi. Currently managed with Desvenlafaxine succinate Pristiq and Ativan PRN. - Desvenlafaxine succinate 25mg daily - Lorazepam 0.5mg BID PRN for anxiety/insomnia/nausea # Neuropathy: Baseline neuropathy to hands/feet. Stable home Gabapentin, Tramadol PRN, and vitamin B complex. - Gabapentin 100mg TID - Tramadol 50mg daily PRN - vitamin B complex # b/l knee pain 2/2 OA: Has baseline knee pain which is stable. Takes Meloxicam daily - Hold systemic NSAIDS including Meloxicam with CAR-T admission - topical Voltaren PRN - PT/OT/massage therapy # GERD: Takes Pantoprazole 40mg daily at home. - Omeprazole 20mg daily while inpatient (oral Pantoprazole is non-formulary) # Asthma: Home symbicort daily and albuterol PRN - Budesonide-formoterol 160-4.5 mcg/actuation inhaler 2 puffs BID - Albuterol 90 mcg/actuation inhaler 2 puffs q6h PRN for wheezing # chronic rhinitis: Takes Triamcinolone 55mcg/actuation nasal inhaler daily and antihistamine Chlorpheniramine 5mg q6h PRN Infectious disease 10/29/2023 Assessment & Plan (11/08/2023 1:23 PM EST): # Febrile Neutropenia On admission, afebrile and not neutropenic. Developed non-neutropenic fever on 11/01 AM with accompanied chills. Kumar-cultured. First temp while neutropenic to 101.6F on 11/03. Started cefepime (Keflex allergy, tolerated cefepime test dose). 11/03 CXR neg. Blood and urine cx sent. 11/03 urine culture with few mixed bacteria, asymptomatic. 11/05 C Diff neg. Cefepime stopped with count recovery. C/o new rhinorrhea and nasal congestion 11/06, 11/06 PRO neg. - Supportive care for upper resp s/s- Nasal spray PRN, Flonase PRN - F/u blood cultures, NTD - If T>100.4F, bd cx q24H Routine prophylaxis: - Viral: Valtrex 500mg daily - PJP: Bactrim DS 3x/week on // Assessment & Plan (10/31/2023 7:59 AM EST): On admision afebrile and not neutropenic - If febrile, obtain cultures, respiratory viral panel, and obtain CXR Routine prophylaxis: - Viral: Valtrex 500mg daily - PJP: Bactrom DS 3x/week on // - Fungal: consider adding Fluconazole 400mg PO daily if requiring steroids Posttraumatic stress disorder 08/18/2022 Multiple myeloma not having achieved remission 0 02/06/2017 Assessment & Plan (11/09/2023 12:00 AM EST): Diagnosis: [facility] Multiple Myeloma Primary Oncologist: Dr. Van Dupont (Myeloma), Dr. Bobby Mata (CART) Disease Status: Imaging 10/23/23 from OSH showed persistent disease. Did not receive bridging therapy. 10/26/23 SPEP and Bmbx w/ normal pattern and no morphological evidence of myeloma in marrow. Prior treatments: RVD+rev; Jo; DPd; CyBorD Treatment: Admitted for Amol-reese ([place]), D0= 11/01/23, s/p outpatient lymphodepleting chemotherapy with fludarabine and cytoxan. Plan: Today, 11/09/23 is Day +9 of Amol-reese CAR-T. - Daily BMP/LFTs, LDH, phosphorus, magnesium, uric acid, CBC/diff, DIC labs, CRP, ferritin CRS: Currently no e/o CRS. Previously Grade 1 with fever (Tmax 100.6), s/p tocilizumab x1 on 11/01 and repeat fever tmax 101.6 on 11/03. No further fevers. - Monitor closely for CRS (i.e. fevers, tachycardia, hypotension, hypoxia) - Trend CRP, ferritin, and coagulation studies - If febrile, rule out/treat potential infectious sources - For onset within 72H, or for Grade 2 (or above), page PI/attending for consideration of tocilizumab AND steroids At risk for neurotoxicity: Currently none. - Monitor closely for signs of neurotoxicity (i.e. confusion, altered mental status, altered level of consciousness, seizure, aphasia) - Keppra 500 mg PO BID for seizure prophylaxis - For s/sx of neurological toxicity, page PI/attending for consideration of steroids Assessment & Plan (10/31/2023 7:44 AM EST): Diagnosis: [facility] Multiple Myeloma Primary Oncologist: Dr. Van Dupont (Myeloma), Dr. Bobby Mata (CART) Disease Status: Imaging 10/23/23 from OSH showed persistent disease. Did not receive bridging therapy. SPEP and Bmbx on 10/26 with results pending Prior treatments: RVD+rev; Jo; DPd; CyBorD Treatment: Admitted for Amol-reese ([place]ma), D0= 11/01/23, s/p outpatient lymphodepleting chemotherapy with fludarabine and cytoxan with dose reduction for CrCl ___ and tolerated well ___ Plan: Today, 10/31/23 is Day -1 of Amol- reese - PICC placement on admission - Pre-medication with Tylenol and Benadryl followed by CAR-T cell infusion - Daily BMP/LFTs, LDH, phosphorus, magnesium, uric acid, CBC/diff, DIC labs, CRP, ferritin - G-CSF to be started on or after D+5 in the absence of CRS or per protocol requirements At risk for CRS: Currently none. supportive care only. Previously reached Currently none s/p supportive care only. - Monitor closely for CRS (i.e. fevers, tachycardia, hypotension, hypoxia) - If febrile, rule out/treat potential infectious sources - For onset within 72H, or for Grade 2 (or above), page PI/attending for consideration of tocilizumab AND steroids - Trend CRP, ferritin, and coagulation studies At risk for neurotoxicity: Currently none. supportive care only. Previously reached Currently none s/p supportive care only . - Monitor closely for signs of neurotoxicity (i.e. confusion, altered mental status, altered level of consciousness, seizure, aphasia) - Keppra 500 mg PO BID for seizure prophylaxis - For s/sx of neurological toxicity, page PI/attending for consideration of steroids At risk for tumor lysis syndrome: - Monitor TLS labs daily - Allopurinol 300 mg PO daily Social History Tobacco Use Types Packs/Day Years [...] on file Sexual Orientation Not on file Last Filed Vital Signs Vital Sign Reading Time Taken Comments Blood Pressure 160/71 01/06/2025 11:58 AM EDT Pulse 62 01/06/2025 11:58 AM EDT Temperature 36.2 C (97.1 F) 01/06/2025 11:58 AM EDT Respiratory Rate 16 01/06/2025 11:5 8 AM EDT Oxygen Saturation 96% 01/06/2025 11: 58 AM EDT Inhaled Oxygen Concentration - - Weight 76.1 kg (167 lb 11.2 oz) 025 11:58 AM EDT Height 160 cm (5' 3 ) 06/08/2024 3:08 PM EDT Body Mass Index 29.71 06/08/2024 3:08 PM EDT Plan of Treatment Upcoming Encounters Date Type Department Care Team (Late st Contact Info) Description 05/12/2025 11:30 AM EDT Blood Draw [facility] [address] [place] [address], 9th Floor, [address] [place] [address] Van Dupont MD [address] [place] [address] [email or web address] 05/12/2025 12:30 PM EDT Office Visit [facility] Mal[facility] [address] [facility], 9th Floor, [address] [place] [address] Van Dupont MD [address] [place] [address] [email or web address] Health Maintenance Due Date Last Done Comments DEPRESSION SCREENING 1956 ZOSTER VACCINES (1 of 2) 02/08/1963 OSTEOPOROSIS SCREENING INITIAL (ONE-TIME) 02/08/2009 INFLUENZA VACCINE (#1) 2025 , 06/18/2023, 06/07/2022, Additional history exists COVID-19 VACCINE ( season) 2025 05/27/2024, 06/18/2023, 05/18/2022, Additional history exists CREATININE LEVEL 01/06/2026 01/06/2025, 03/2025, 05/12/2024, Additional history exists POTASSIUM LEVEL 01/06/2026 01/06/2025, 03/2025, 05/12/2024, Additional history exists Adult Td,Tdap Booster 12/04/2034 12/04/2024 PNEUMOCOCCAL VACCINES (50+ years) Completed 10/07/2018, 01/15/2017 RSV VACCINE Completed 07/14/2023 HEPATITIS A VACCINES Aged Out No long er eligible based on patient's age to complete this topic HIB VACCINES Aged Out No longer eligi ble based on patient's age to complete this topic MENINGOCOCCAL VACCINES (ACWY) Aged Out No longer eligible based on patient's age to complete this topic MENINGOCOCCAL VACCINES (B) Aged Out N o longer eligible based on patient's age to complete this topic Goals Goal Patient Goal Type Associated Problems Recent Progress Patient-Stated? Author Acute Care Plan Acute Care Plan No Carolina Jackson RN Note: Cellular therapy/ Immune Effector Cell patient. Patient received cellular therapy product Amol-reese on 11/01/23 Page the on-call Immune Effector Cell Attending via [email or web address] Page immediately if patient presents [...] Patients should be admitted to [place] [address] to the Immune Effector Cell Service. Medical Devices Not on file Procedures Procedure Name Priority Date/Time Associated Diagnosis Comments COMPREHENSIVE METABOLIC PANEL Routine 01/06/2025 10:46 AM EDT Multiple myeloma not having achieved remission from Last 3 Months or Most Recently Relevant to Health Maintenance Results * (ABNORMAL) Comprehensive metabolic panel (01/06/2025 10:46 AM EDT) SODIUM 144 135 - 145 mmol/L [facility] POTASSIUM 4.4 3.4 - 5.0 mmol/L [facility] CHLORIDE 107 98 - 108 mmol/L [facility] CO2 26 23 - 32 mmol/L [facility] BUN 19 8 - 25 mg/dL [facility] CREATININE 0.84 0.50 - 1.00 mg/dL [facility] GLUCOSE 96 70 - 110 mg/dL [facility] ALBUMIN 4.6 3.3 - 5.0 g/dL [facility] TOTAL PROTEIN 6.3 6.0 - 8.3 g/dL [facility] CALCIUM 9.5 8.5 - 10.5 mg/dL [facility] ALKALINE PHOSPHATASE 93 30 - 100 U/L [facility] TOTAL BILIRUBIN 0.4 0.0 - 1.0 mg/dL [facility] AST 23 9 - 32 U/L [facility] ALT 23 7 - 33 U/L [facility] GLOBULIN 1.7(L) 1.9 - 4.1 g/dL [facility] EGFR 70 >59 mL/min/1. 73m2 [facility] Comment:Estimated glomerular filtration rate calculated using the CKD-EPI refit equation. ANION GAP 11 3 - 17 mmol/L [facility] 01/06/2025 10:4 6 AM EDT 01/06/2025 11:00 AM EDT us Van Dupont MD LAB BLOOD ORDERABLES Final Resul t [facility] [address] [place] [address] from Last 3 Months or Most Recently Relevant to Health Maintenance Insurance [facility] MEDEX SUPPLEMENT MEDICARE PART A & B [employer] MEDEX SUPPLEMENT MEDICARE PART A & B [employer] MEDEX SUPPLEMENT MEDICARE PART A & B [employer] SUPPLEMENT MEDICARE PART A & B [employer] MEDEX SUPPLEMENT MEDICARE PART A & B [employer] MEDEX SUPPLEMENT MEDICARE PART A & B [employer] MEDEX SUPPLEMENT MEDICARE PART A & B [employer] MEDEX SUPPLEMENT MEDICARE PART A & [place] [address] [place] [address] MEDEX SUPPLEMENT MEDICARE PART A & B Advance Directives For more information, please contact: [phone] (9AM - 5PM [facility], Sunday-Sunday) Documents on File Type Date Recorded Patient 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 Care Teams Focused Factory Manager Relationship Specialty Start Date End Date Po, Markos Awan MD [address] [place] [phone] PCP - General Internal Medicine 12/07/20 Debra Muniz MD [address] [place] [address] Medical Oncology 05/27/18 Mohinder Fan MD [address] [place] [address] Consulting Provider Geriatric Psychiatry 05/27/18 Van Dupont MD [address] [place] [address] [email or web address] Primary Oncologist Medical Oncology 10/14/18 Arsh Mata MD [address] [place] [address] [email or web address] Treatment Team Hematology and Oncology 10/16/23 Eufemia Caro RN [address] [place] [address] [email or web address] Associate Infusion Nurse 10/16/23 Additional Source Comments The information contained in this document represents components of the legal health record. It is not the complete legal health record.[facility]
--- OUTSIDE RECORDS SUMMARY | 2025-05-06 16:43 | XMS_ITS ---
Author Organization [facility] Address [address] [address] [place] [address] Phone Care Team Providers Care Heating And Ventilation Engineer Name Role Phone Debra Muniz MD Unavailable Mohinder Fan MD Unavailable [phone] Van Dupont MD Unavailable Markos James MD Primary Care Provider [phone] Arsh Mata MD Unavailable [phone] Eufemia Caro RN Unavailable [email or web address] Active Problems Patient Care Coordination No te Formatting of this note migh t be different from the original. Statement of completion of cellular therapy team care. Cleared to return to [facility] Myeloma team: As of DATE 11/30/23 - Patient is currently without any acute Cell Therapy related signs and symptoms and has been cleared by their Cell Therapy MD to transfer care back to their primary oncology team. MD to MD pass off will occur separately. For any questions please contact: [facility] Cancer Center: Cellular Therapy Team phone: [phone] [facility] CAR-T fax: [phone] Problem Noted Date Diagnosed Date Unspecified severe [...] concerns reported today, Per chart review from las visit with palliative care on 08/21/24 Moni has a history of anxiety, is seen by outpatient Psycho-Oncology team (Dr. Gandhi), takes lorazepam PRN with excellent effect. Anxiety is exacerbated by multiple sources of uncertainty related to her cancer diagnosis and treatment. She felt very safe at [facility] and feels she has received excellent medical care through [facility] cancer center. She has some trepidation about [...] reassurance that she can still call the [facility] cancer center for advice, day or night [...] and treatment. She felt very safe at [facility] and feels she has received excellent medical care through [facility] cancer center. She has some trepidation about [...] reassurance that she can still call the [facility] cancer center for advice, day or night [...] and treatment. She felt very safe at [facility] and feels she has received excellent medical care through [facility] cancer center. She has some trepidation about [...] reassurance that she can still call the [facility] cancer center for advice, day or night [...] and treatment. She felt very safe at [facility] and feels she has received excellent medical care through [facility] cancer center. She has some trepidation about [...] reassurance that she can still call the [facility] cancer center for advice, day or night [...] and treatment. She felt very safe at [facility] and feels she has received excellent medical care through [facility] cancer center. 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 Taking Morphine oral solution PRN started with [...] vitamin B complex # b/l knee pain 2/ OA: Has baseline knee pain which is [...] and not neutropenic. Developed non-neutropenic fever on 3/1 AM with accompanied chills. Kumar-cultured. First temp [...] daily - PJP: Bactrim DS 3x/week on Assessment & Plan (10/31/2023 7:59 AM EST): On admision afebrile and not neutropenic - If febrile, obtain cultures, respiratory viral panel, and obtain CXR Routine prophylaxis: - Viral: Valtrex 500mg daily - PJP: Bactrom DS 3x/week on - Fungal: consider adding Fluconazole 400mg PO daily if requiring steroids Posttraumatic stress disorder 08/18/2022 Multiple myeloma not having achieved remission 0 02/06/2017 Assessment & Plan (11/09/2023 12:00 AM EST): Diagnosis: [place] [facility] Multiple Myeloma Primary Oncologist: Dr. Van [...] & Plan (10/31/2023 7:44 AM EST): Diagnosis: [place] [facility] Multiple Myeloma Primary Oncologist: Dr. Van [...] daily - Allopurinol 300 mg PO daily Current Treatment and Therapy Plans DENOSUMAB (XGEVA)* Plan Start Date:12/10/2023 Plan Provider:Van Dupont MD Linked Problems Multiple myeloma, remission status unspecified Treatment Medications No medications scheduled. Past Treatment and Therapy Plans TREATMENT PLAN Plan Name Start Date Discontinue Date Treatment Medications Discontinue Reason Plan Provider Cycles TP 101[facility] CYCLOPHOSPHA MIDE/FLUDARA BINE/IDECABT AGENE VICLEUCEL 4 12/31/2024 cycloPHOSphamide (CYTOXAN) infusion 100 mL (liquid vial)fludarabine (FLUDARA) IVPB {solution vial}idecabtagene vicleucel (ABECMA) a. Therapy Complete Arsh Mata MD 1 of 1 cycle started
--- OUTSIDE RECORDS SUMMARY | 2025-05-06 16:43 | XMS_ITS | Encounter Summary ---
Author Organization [facility] Address [address] [place] [address] [address] [place] [address] Phone Care Team Providers Care Track Repair Worker Name Role Phone Debra Muniz MD Unavailable [phone] Mohinder Fan MD Unavailable [phone] Van Dupont MD Unavailable Markos James MD Primary Care Provider Arsh Mata MD Unavailable [phone] Eufemia Caro RN Unavailable [email or web address] [email or web address] Encounter Details Date Type Department Care Team (Late st Contact Info) Description 03/15/2021 Procedure Pass [facility] [place] [address] [facility], 6th [place] [address] Social History Tobacco Use Types Packs/Day Years [...] Description 05/12/2025 11:30 AM EDT Blood Draw [facility] Malignancies [address] [facility] [address], 9th Floor, [address] [place] [address] Van Dupont MD [address] [place] [address] [email or web address] 05/12/2025 12:30 PM EDT Office Visit [facility] Malignancies [address] [facility] [address] [facility] [address], 9th Floor, [address] [place] [address] Van Dupont MD [address] [place] [address] [email or web address] documented as of this encounter Visit [...] documented as of this encounter Care Teams Track Repair Worker Relationship Specialty Start Date End Date Po, Markos Awan MD [address] [place] [phone] PCP - General Internal Medicine 12/07/20 Debra Muniz MD [address] [place] [address] Medical Oncology 05/27/18 Mohinder Fan MD [address] [place] [address] Consulting Provider Geriatric Psychiatry 05/27/18 Van Dupont MD [address] [place] [address] [email or web address] Primary Oncologist Medical Oncology 10/14/18 Arsh Mata MD [address] [place] [address] [email or web address] Treatment Team Hematology and Oncology 10/16/23 Eufemia Caro, RN [address] [place] [address] [email or web address] Associate Infusion Nurse 10/16/23 documented as of this encounter Additional Source Comments The information contained in this document represents components of the legal health record. It is not the complete legal health record.[facility]
== END 2025-05-06 15:27 | disposition home or self-care (01) ==
PROVIDERS: Visit Provider Physician Assistant Medical
DX: J02.9 Acute pharyngitis, unspecified (principal)

== ENCOUNTER → 2025-05-06 14:24 | Outpatient (BNVA) | payer MEDICARE, SELFPAY | PROVIDERS: Visit Provider Physician Assistant Medical | DX: J02.9 Acute pharyngitis, unspecified (principal) | CPT/HCPCS: 99212 ==

== ENCOUNTER 2025-05-15 13:15 | Day surgery (SDC) | payer MEDICARE, SELFPAY ==
--- OUTSIDE RECORDS SUMMARY | 2015-10-28 01:00 | XMS_ITS | Encounter Summary ---
Author Organization [facility] Address [address] [employer] [facility] [address] [place] [address] Phone Care Team Providers Care Cloth Bleaching Range Operator Chief Name Role Phone Unavailable Primary Care Provider Unavailabl e Reason for Visit * MRI/CAT Scan - Closed Specialty Diagnoses / Procedures Referred By Yasir t Referred To Contact Procedures CT Chest Outside (No Interpretation) Van Dupont MD [address] [place] [address] Phone: tel: fax: mailto:[email or web address] du Referral ID Status Reason Start Date Expiration Date Visits Re quested Visits Authorized [id number] Closed 01/24/2017 01/24/2018 1 1 Encounter Details Date Type Department Care Team (Late st Contact Info) Description 10/28/2015 Hospital Encounter [facility] [address] [place] [address] Van Dupont MD [address] [place] [address] [email or web address] u Social History Tobacco Use Types [...] 10/31/2023 4:32 PM Shyanne Owens RN * [place] Suicide Severity Rating Scale (Screener/Recent Self-Report) Question [...] Care Team (Late st Contact Info) Description 05/21/2025 9:30 AM EDT Telemedicine [facility] [address] [place] [address], 7th Floor, [address] [place] [address] Mandy Ricks MD [address] [place] [address] [email or web address] documented as of this encounter Goals Goal Patient Goal Type Associated Problems Recent Progress Patient-Stated? Author Acute Care Plan Acute Care Plan No Carolina Jackson RN Note: Cellular therapy/ Immune Effector Cell patient. Patient received cellular therapy product Amol-reese on 11/01/23 Page the on-call Immune Effector Cell Attending via www.[employer] Login [facility] Page immediately if patient presents within the [...] team evaluation. Patients should be admitted to [place] [address] to the Immune Effector Cell Service. documented as of this encounter Procedures Procedure Name Priority Date/Time Associated Diagnosis Comments CT CHEST OUTSIDE (NO INTERPRETATION) Routine 10/28/2015 12:00 AM EST documented in this encounter Results * CT Chest Outside (No Interpretation) (10/28/2015 12:00 AM EST) Narrative [facility] IMG INTERFACES - 01/24/2017 7:28 AM EDT This study is for PACS storage only and not for interpretation. us Van Dupont MD IMG OUTSIDE IMAGING W/OUT INTERP RETATION Final Result [facility] IMG INTERFACES documented in this encounter Visit [...] It is not the complete legal health record.[facility]
--- OUTSIDE RECORDS SUMMARY | 2016-11-23 | XMS_ITS | Encounter Summary ---
Author Organization [facility] Address [address] [facility] [address] [place] [address] Phone Care Team Providers Care Welding Technician Name Role Phone Unavailable Primary Care Provider Unavailabl e Reason for Visit * MRI/CAT Scan - Closed Specialty Diagnoses / Procedures Referred By Yasir weller Referred To Contact Procedures MRI Outside Upper Extremity (No Interpretation) Van Dupont MD 55 [place] [address] Phone: tel: fax: mailto:[email or web address] du Referral ID Status Reason Start Date Expiration Date Visits Re quested Visits Authorized [id number] Closed 02/06/2017 02/06/2018 1 1 Encounter Details Date Type Department Care Team (Late st Contact Info) Description 11/23/2016 Hospital Encounter [facility] [address] [place] [address] Van Dupont MD 55 [place] [address] [email or web address] u Social History Tobacco Use Types Packs/Day [...] 10/31/2023 4:32 PM Shyanne Owens RN * [place] Suicide Severity Rating Scale (Screener/Recent Self-Report) Question Answer Date of Assessment Author 1. Wish to be (Past 1 Month) No 10/31/2023 4:32 PM Shyanne Owens, NIKOLAS 2. Non-Specific Active Suicidal Thoughts (Past 1 Month) No 10/31/2023 4:32 PM Shynane Owens, NIKOLAS 6. Suicidal Behavior (Lifetime) No 10/31/2023 4:32 PM Shyanne Owens, NIKOLAS documented as of this encounter Plan of Treatment Upcoming Encounters Date Type Department Care Team (Late st Contact Info) Description 05/21/2025 9:30 AM EDT Telemedicine [facility] [address] [facility], 7th Floor, [address] [place] [address] Mandy Ricks MD 55 [place] [address] [email or web address] documented as of this encounter Goals Goal Patient Goal Type Associated Problems Recent Progress Patient-Stated? Author Acute Care Plan Acute Care Plan No Carolina Jackson RN Note: Cellular therapy/ Immune Effector Cell patient. Patient received cellular therapy product Amol-reese on 11/01/23 Page the on-call Immune Effector Cell Attending via www.Nginx Login [facility] Page immediately if [...] team evaluation. Patients should be admitted to [place] [address] to the Immune Effector Cell Service. documented as of this encounter Procedures Procedure Name Priority Date/Time Associated Diagnosis Comments MRI UPPER EXTREMITY OUTSIDE (NO INTERPRETATION) Routine 11/23/2016 12:00 AM EDT documented in this encounter Results * MRI Outside Upper Extremity (No Interpretation) (11/23/2016 12:00 AM EDT) Narrative [facility] - 02/06/2017 2:09 PM EDT This study is for PACS storage only and not for interpretation. us Van Dupont MD IMG OUTSIDE IMAGING W/OUT INTERP RETATION Final Result [facility] documented in this encounter Visit [...] It is not the complete legal health record.[facility]
--- OUTSIDE RECORDS SUMMARY | 2018-01-09 | XMS_ITS | Encounter Summary ---
Author Organization [facility] Address [address] [facility] [address] [place] [address] Phone Care Team Providers Care Technical Support Specialist Name Role Phone Unavailable Primary Care Provider Unavailabl e Reason for Visit * MRI/CAT Scan - Closed Specialty Diagnoses / Procedures Referred By Yasir t Referred To Contact Procedures MRI Spine (Bone) Outside (No Interpretation) Van Dupont MD 55 [place] [address] Phone: tel: fax: mailto:[email or web address] Referral ID Status Reason Start Date Expiration Date Visits Re quested Visits Authorized [id number] Closed 01/21/2018 01/21/2019 1 1 Encounter Details Date Type Department Care Team (Late st Contact Info) Description 01/09/2018 [facility] Encounter [facility] 55 [place] [address] Van Dupont MD 55 [place] [address] [email or web address] Social History Tobacco Use Types Packs/Day [...] 10/31/2023 4:32 PM Shyanne Owens RN * [place] Suicide Severity Rating Scale (Screener/Recent Self-Report) Question [...] Info) Description 05/21/2025 9:30 AM EDT Telemedicine [facility] [address] [facility], 7th Floor, [address] [place] [address] Mandy Ricks MD 55 [place] [address] [phone] (work) [email or web address] documented as of this encounter Goals Goal Patient Goal Type Associated Problems Recent Progress Patient-Stated? Author Acute Care Plan Acute Care Plan No Carolina Jackson RN Note: Cellular therapy/ Immune Effector Cell patient. Patient received cellular therapy product Amol-reese on 11/01/23 Page the on-call Immune Effector Cell Attending via www.Big Contacts Login [facility] Page immediately if patient presents within the [...] team evaluation. Patients should be admitted to [place] [address] to the Immune Effector Cell Service. documented as of this encounter Procedures Procedure Name Priority Date/Time Associated Diagnosis Comments MRI SPINE MUSCULOSKELETAL FOCUS OUTSIDE (NO INTERPRETATION) Routine 01/09/2018 12:00 AM EDT documented in this encounter Results * MRI Spine (Bone) Outside (No Interpretation) (01/09/2018 12:00 AM EDT) Narrative [facility]G INTERFACES - 01/21/2018 2:08 PM EDT This study is for PACS storage only and not for interpretation. us Van Dupont MD IMG OUTSIDE IMAGING W/OUT INTERP RETATION Final Result [facility]FACES documented in this encounter Visit [...]
--- OUTSIDE RECORDS SUMMARY | 2018-01-10 | XMS_ITS | Encounter Summary ---
Author Organization [facility] Address [address] [place] [address] Phone Care Team Providers Care Supervisor Special Effects Name Role Phone Unavailable Primary Care Provider Unavailabl e Encounter Details Date Type Department Care Team (Late st Contact Info) Description 01/10/2018 Hospital Encounter [facility] General Imaging [address] [place] [address] Van Dupont MD [address] [place] [address] [email or web address]. u Social History Tobacco Use Types Packs/Day [...] 10/31/2023 4:32 PM Shyanne Owens RN * [place] Suicide Severity Rating Scale (Screener/Recent Self-Report) Question [...] Info) Description 05/21/2025 9:30 AM EDT Telemedicine [facility] Palliative Care Clinic [address] [facility], 7th Floor, [address] [place] [address] Mandy Ricks MD [address] [place] [address] [email or web address] documented as of this encounter Goals Goal Patient Goal Type Associated Problems Recent Progress Patient-Stated? Author Acute Care Plan Acute Care Plan No Carolina Jackson, NIKOLAS Note: Cellular therapy/ Immune Effector Cell patient. Patient received cellular therapy product Amol-reese on 11/01/23 Page the on-call Immune Effector Cell Attending via www.[employer] Login [facility] Page immediately if patient presents within [...] team evaluation. Patients should be admitted to [place] [address] to the Immune Effector Cell Service. documented as of this encounter Procedures Procedure Name Priority Date/Time Associated Diagnosis Comments XR UPPER EXTREMITY OUTSIDE (NO INTERPRETATION) Routine 01/10/2018 12:00 AM EDT documented in this encounter Results * XR Upper Extremity Outside (No Interpretation) (01/10/2018 12:00 AM EDT) Narrative [facility] IMG INTERFACES - 01/21/2018 2:05 PM EDT This study is for PACS storage only and not for interpretation. us Van Dupont MD IMG OUTSIDE IMAGING W/OUT INTERP RETATION Final Result [facility] IMG INTERFACES documented in this encounter Visit [...]
--- OUTSIDE RECORDS SUMMARY | 2018-01-10 00:15 | XMS_ITS | Encounter Summary ---
Author Organization [facility] Address [address] [facility] [address] [place] [address] Phone Care Team Providers Care Supervisor Kosher Dietary Service Name Role Phone Unavailable Primary Care Provider Unavailabl e Encounter Details Date Type Department Care Team (Late st Contact Info) Description 01/10/2018 12:15 AM EDT Hospital Encounter [facility] [address] [place] [address] Van Dupont MD [address] [place] [address] [email or web address] Social History Tobacco Use Types Packs/Day Years [...] 10/31/2023 4:32 PM Shyanne Owens RN * [place] Suicide Severity Rating Scale (Screener/Recent Self-Report) Question [...] Info) Description 05/21/2025 9:30 AM EDT Telemedicine [facility] Pall[facility] Clinic [address] [facility], 7th Floor, [address] [place] [address] Mandy Ricks MD [address] [place] [address] [email or web address] documented as of this encounter Goals Goal Patient Goal Type Associated Problems Recent Progress Patient-Stated? Author Acute Care Plan Acute Care Plan No Carolina Jackson RN Note: Cellular therapy/ Immune Effector Cell patient. Patient received cellular therapy product Amol-reese on 11/01/23 Page the on-call Immune Effector Cell Attending via www.[employer] Login [facility] Page immediately if patient presents within [...] team evaluation. Patients should be admitted to [place] [address] to the Immune Effector Cell Service. documented as of this encounter Procedures Procedure Name Priority Date/Time Associated Diagnosis Comments XR CHEST OUTSIDE (NO INTERPRETATION) Routine 01/10/2018 12:15 AM EDT documented in this encounter Results * XR Chest Outside (No Interpretation) (01/10/2018 12:15 AM EDT) Narrative [facility] IMG INTERFACES - 01/21/2018 2:06 PM EDT This study is for PACS storage only and not for interpretation. us Van Dupont MD IMG OUTSIDE IMAGING W/OUT INTERP RETATION Final Result [facility] IMG INTERFACES documented [...] It is not the complete legal health record.[facility]
--- OUTSIDE RECORDS SUMMARY | 2025-05-12 12:30 | XMS_ITS | Encounter Summary ---
Author Organization [facility] Address [address] [place] [id number] Phone Care Team Providers Care Product Managent Intern Name Role Phone Debra Muniz MD Unavailable Mohinder Fan MD Unavailable [phone] Van Dupont MD Unavailable Markos James MD Primary Care Provider [phone] Arsh Mata MD Unavailable [phone] Eufemia Caro RN Unavailable MELISSA [email or web address] Reason for Referral * MRI/CAT Scan - Authorized Specialty Diagnoses / Procedures Referred By Contreagan t Referred To Contact Radiology Diagnoses Multiple myeloma, remission status unspecified Procedures MRI Whole Body Van Dupont MD [address] [place] [id number] Phone: tel: fax: mailto:[email or web address] Referral ID Status Reason Start Date Expiration Date V isits Requested Visits Authorized [id number] Authorized 05/13/2025 1 1 Encounter Details Date Type Department Care Team ([facility] st Contact Info) Description 05/12/2025 12:30 PM EDT Office Visit [facility] Center for Hematology Malignancies [address], 9th [address], [address] [place] [address] Van Dupont MD [address] [place] [address] [email or web address] Multiple myeloma, remission status unspecified (Primary Dx) Social History Tobacco Use Types Packs/Day Years [...] on file documented as of this encounter Last Filed Vital Signs Vital Sign Reading Time Taken Comments Blood Pressure 125/53 05/12/2025 12:38 PM EDT Pulse 56 05/12/2025 12:38 PM EDT Temperature 36.3 C (97.3 F) 05/12/2025 12:38 PM EDT Respiratory Rate 16 05/12/2025 12:3 8 PM EDT Oxygen Saturation 100% 05/12/2025 12: 38 PM EDT Inhaled Oxygen Concentration - - Weight 74.8 kg (164 lb 12.8 oz) 025 12:38 PM EDT Height - - Body Mass Index 29.19 06/08/2024 3:08 PM EDT documented in this encounter Progress Notes * Van Dupont MD - 05/12/2025 12:30 PM EDT Images from the original note were not included. [place] [facility], [address] [place] [address] PROGRESS NOTE 05/12/2025 Reason for visit Moni Cole is a 80 y.o. year old female patient of Dr. Muniz with kappa light chain multiple myeloma, ISS stage I, here for follow up Current treatment Modified RVD (through Dr. Debra Muniz) -> Revlimid and dexamethasone -> daratumumab -> daratumumab, pom, dex -> CyBorD -> amol reese 11/01/23 Oncology History Overview Note The patient has a history of rotator cuff injuries and had surgeries to repair the injuries in 2014. She had an MRI in December of 2015 which reportedly did not show any lesions. January 12, 2016. Arthroscopic rotator cuff repair (Dr. Danis Gonzalez). She recovered well from her surgeries but continued to have some discomfort at the left shoulder despite PT. 12/05/2016: MRI left shoulder: Expansile lesion in the inferior aspect of the scapula. There was an additional lesion in the distal clavicle and the region of signal abnormality in the posterior lateral aspect of the left superior rib. December 05, 2016. IgG 806, IgA 61, IgM 31 12/07/2016: PET/CT: Intensely FDG avid lesion in the left scapular body, most likely malignant. Sub cm pulmonary nodules visualized on previous CT chest are not well visualized. Hypodense L adrenal nodule likely benign. 12/08/2016: Left scapula biopsy: Plasma cell myeloma. Core biopsy shows sheets of abnormal immature plasma cells with prominent parker-nuclear hofs, vesicular chromatin, and prominent nucleoli. Flow cytometry performed at outside laboratory revealed that the plasma cells are CD38+ CD56+ CD20- CD19- andexpress monotypic kappa immunoglobulin light chain. 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 12/13/2016 Skeletal survey: There is an abnormality involving the left scapula with suspicious features. Small lucent lesions in the calvarium which in this setting are suspicious for involvement by myeloma. December 13, 2016. Free kappa 902.6 mg/L, free lambda 6.7 mg/L. B2M 1.74. 01/05/2017 Bone marrow biopsy: Marrow cellularity is approximately 60%. The M:E ratio is normal. Myeloid maturation is complete. Erythroid maturation is complete. Megakaryocytes are increased with overall normal morphology. Plasma cells are present as scattered cells and in small and large clusters. They consist of large immature atypical forms with prominent nucleoli and comprise about 10% of the cellularity. The plasma cells are CD138+ by IHC. FISH on bone marrow reveals loss of one copy of IGH, but no evidence of a rearrangement involving IGH, FGFR3 or MAF. Cytogenetics revealed a normal female karyotype (46XX) in 20 cells. 01/05/2017 IgG 805 IgA 61 IgM 32 Free K 902 Free L 6.7 K/L ratio 134.72 Beta2 1.74 February 06, 2017. Free kappa 673.7 mg/L, free lambda 6 mg/L. February 19, 2017. Cycle 1 of RVD. Velcade later changed to iv because of rash March 19, 2017. Free kappa 14.1 mg/L, free lambda 8.1 mg/L March 20, 2017. Chest CTA locally negative for pulmonary embolism. March 26, 2017. Cycle 2. April 17, 2017. IgG 516, IgA 28, IgM 22. No monoclonal protein. Free kappa 8.7, free lambda 6.4 mg/L. May 14, 2017. Free kappa 11.8, free lambda 7.9 mg/L May 15, 2017. Left rib films no lesion. Redmeonstration of lytic lesion involving inferior aspect of left scapula. July 10. Cycle 5. July 16, 2017. IgG 464, IgA 26, IgM 19. No monoclonal protein. Free kappa 7.9, free lambda 8.3 mg/L. August 09, 2017. Left shoulder MRI It showed the expansile enhancing lesion in left inferior scapular body, which has slightly decreased in size and resolution of adjacent soft tissue edema. September 17, 2017. Cycle 7. October 01, 2017. IgG 447, IgA 27, IgM 19. Free kappa 7.1, free lambda 7.3 mg/L October 2017. Revlimid maintenance. November 26, 2017. IgG 479, IgA 32, IgM 21. No monoclonal protein. Free kappa 7.4, free lambda 8 mg/L January 09, 2018. Lumbar spine MRI showed no convincing imaging evidence of myeloma. Multilevel lumbar spondylosis. Degenerative changes at L5-S1 lead to potential mass effect on the left L5 and S1 nerve roots January 10, 2018. Fractured right humerus in a fall. January 21, 2018. IgG 578, IgA 58, IgM 25. No monoclonal protein. Free kappa 10.5, free lambda 11 mg/L. May 27, 2018. IgG 579, IgA 67, IgM 20. No monoclonal protein. Free kappa 10.7, free lambda 11.3 October 14, 2018. IgG 695, IgA 77, IgM 26. No monoclonal protein. Free kappa 12.9, free lambda 9.6mg/L. June 18, 2019. IgG 715, IgA 90, IgM 24. Free kappa 21.6, free lambda 11.2 mg/L. January 08, 2020. IgG 800, IgA 107, IgM 26. No monoclonal protein. Free kappa 95.1, free lambda 13.8 mg/L. February 2020. Revlimid; added dexamethasone March 12, 2020. IgG 709, IgA 58, IgM 22. No monoclonal protein. Free kappa 97.8, free lambda 9.7 mg/L May 06, 2020. Free kappa 99.9, free lambda 8.6 mg/L. June 16, 2020. IgG 538, IgA 41, IgM 16. Free kappa 85.5 mg/L, free lambda 5.6 mg/L. June 18, 2020. Total kappa 102 mg/dL, total lambda 58 mg/dL (performed locally) June 18, 2020. Free kappa 93.9, free lambda 8.1 mg/L September 07, 2020. Free kappa 98.5, free lambda 7.7 mg/L. October 14, 2020. Free kappa 94.3, free lambda 9.1 mg/L. December 07, 2020. IgG 452, IgA 40, IgM 13. Free kappa 103.1, free lambda 7.5 mg/L March 15, 2021. IgG 373, IgA 33, IgM 9. Free kappa 139.8, free lambda 7 mg/L July 01, 2021. Free kappa 236.8, free lambda 9 mg/L. July 12, 2021. Daratumumab August 14, 2021. C2D15 in [place], [place] through [facility]. C2D22 in [place] as well. August 22, 2021. Free kappa 173.6 mg/L, free lambda 2.9 mg/L. September 13, 2021. Cycle 3. September 27, 2021. IgG 396, IgA 12, IgM <5. Free kappa 195.9 mg/L, free lambda 2.9 mg/L. January 17, 2022. Free kappa 413.5, free lambda 2.8 mg/L January 19, 2022. Added pom: melissa pom dex February 02-2021. XRT to left scapula February 14, 2022. Free kappa 213.3 mg/L, free lambda 3.7 mg/L March 14, 2022. Free kappa 185.8, free lambda 3.5 mg/L May 16, 2022. Free kappa 262.9, free lambda 3.6 mg/L June 14, 2022. CyBorD, 21 day schedule January 23, 2023. Free kappa 4.8, free lambda 2 mg/L April 17, 2023 . Free kappa 8.5, free lambda 1.5 mg/L. July 10, 2023. Free kappa 19.5 mg/L, free lambda 1.7 mg/L. August 20, 2023 . IgG 244, IgA 12, IgM 7. No monoclonal protein FKLC 21.9, free lambda 2.1 September 04, 2023. Free kappa 27.8, free lambda 3.8 mg/L November 01, 2023. Amol-reese CAR T cells Multiple myeloma not having achieved remission 12/13/2016 Initial Diagnosis Multiple myeloma not having achieved remission 02/19/2017 - Systemic Therapy RVD 10/2017 - Systemic Therapy Revlimid maintenance 02/02/2022 - 02/08/2022 Radiation XRT to left scapula 10/27/2023 - 11/01/2023 Systemic Therapy Control; TP 1010 [facility] CYCLOPHOSPHAMIDE/FLUDARABINE/IDECABTAGENE VICLEUCEL Arsh Mata MD Interval history Here today with her Davon. She reports increased body aches, particularly in her joints, with significant pain in her hips, groin, and lower back, which occasionally hinders her mobility. The pain is bilateral, with the right side being more affected. Additionally, she mentions a sensation of cartilage depletion in her righthand. Despite trying various treatments last year, including physical therapy, acupuncture, and laser therapy, her condition has worsened. She has an upcoming appointment with Dr. Ricks on 05/21/2025 to discuss pain management. There's also consideration for pain management locally. She has received both doses of the shingles vaccine. She has an appointment with Dr. Muniz on 05/28/2025 and may receive Xgeva injection then. Had IVIG 03/16/25 and 04/15/25. She will get her IVIG on 05/18/2025. She has had issues with her teeth implants in the upper right since around October 2024. Two of them are exposed. The implants were not removed, but she has undergone 2 or 3 surgeries where the tissue was cut and removed due to its soft mush-like consistency. This was treated surgically by debridement. She appeared to respond well at the first postoperative visit 1 week after surgery but showed signs of inflammation, leading to further debridement. She has been on antibiotics and rinses with anonalcoholic mouthwash containing peroxide. She has been seeing Dr. Archana Rodriguez. She occasionally uses her inhaler for shortness of breath and experiences intense sweating, which her cash applications analyst attributed to myeloma. March 16, 2025. IgG 243, IgA 9, IgM 7. April 15, 2025. IgG 469. Free kappa 2 mg/L, free lambda 2.3 mg/L. Past medical history Multiple myeloma, as described above Left rotator cuff repair arthroscopically, January 12, 2016 (Dr. Gonzalez) Bladder cancer around 2005, localized; treated with BCG Knee arthroscopy, bilaterally Irritable bowel syndrome (since early ). Cataracts, removed bilaterally Allergies as of 05/12/2025 - Reviewed 01/15/2025 Allergen Reaction Noted Dilaudid (hydromorphone) Itching 04/17/2017 Keflex (cephalexin) Hives 04/17/2017 Morphine 10/31/2023 Oxycodone Itching 04/17/2017 Current Outpatient Medications Ordered in Epic Medication Sig acetaminophen (TYLENOL) 500 mg capsule Take 500 mg by mouth every 6 (six) hours as needed for pain (specific location in comments). ascorbic acid, vitamin C, (VITAMIN C) 500 mg Chew Take 500 mg by mouth daily. atorvastatin (LIPITOR) 20 MG tablet Take 1 tablet (20 mg total) by mouth daily. budesonide-formoterol (SYMBICORT) 160-4.5 mcg/actuation inhaler Inhale 2 puffs into the lungs 2 (two) times a day. chlorpheniramine (CHLOR-TRIMETON) 4 mg tablet Take 4 mg by mouth every 6 (six) hours as needed for allergies. cholecalciferol (VITAMIN D3) 2,000 unit tablet Take 2,000 Units by mouth daily. cyanocobalamin, vitamin B-12, 1000 MCG tablet Take 1 tablet (1,000 mcg total) by mouth daily. desvenlafaxine succinate (PRISTIQ) 25 mg 24 hr tablet Take 1 tablet (25 mg total) by mouth daily. diclofenac sodium (VOLTAREN) 1 % Gel Apply 2 g topically 4 (four) times a day as needed. diphenoxylate-atropine (LOMOTIL) 2.5-0.025 mg per tablet Take 1 tablet by mouth 4 (four) times a day as needed for diarrhea. gabapentin (NEURONTIN) 100 MG capsule Take 100 mg by mouth nightly at bedtime. LORazepam (ATIVAN) 0.5 MG tablet Take 0.5 mg by mouth 2 (two) times a day as needed for anxiety. Indications: anxious, nausea and vomiting caused by cancer drugs, difficulty sleeping losartan (COZAAR) 100 MG tablet Take 100 mg by mouth daily. meloxicam (MOBIC) 15 MG tablet Take 15 mg by mouth daily. metoprolol succinate (TOPROL-XL) 50 MG 24 hr tablet Take 50 mg by mouth daily. pantoprazole (PROTONIX) 40 MG tablet Take 40 mg by mouth daily. sulfamethoxazole-trimethoprim (BACTRIM DS) 800-160 mg per tablet 3 (three) times a week on Sunday, Sunday, Sunday. therapeutic multivitamin tablet Take 1 tablet by mouth daily. triamcinolone (NASACORT AQ) 55 mcg/actuation nasal inhaler 2 sprays by Nasal route daily as needed. Family history Father diagnosed with pancreatic cancer at age 87 She has a sister who has hypertension and diabetes. Paternal background: Latvian; maternal background. [employer]maze Social history Grew up in [place], [place] The patient lives in [place] with her Davon; is four years her senior. Davon grew up in [place], [place]. Davon worked at [employer] taught organic chemistry for one semester. They downsized from a house to a condo in 2018. in [facility]. They have one 58-year-old son Eduardo and no grandchildren. Son lives in [place], [place]; he's ; he was living in [place]. 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 She drinks occasionally and denies using illicit drugs. Close friend Agapito (who's about 15 years younger than her and originally from [place]) splitstime between [place] and [place]. No pets. Sister lives in [facility]. Review of systems As described above. All other systems are negative Vitals: 05/12/25 1238 BP: 125/53 BP Location: Left arm Patient Position: Sitting Cuff Size: Medium Pulse: (!) 56 Resp: 16 Temp: 36.3 ??C (97.3 ??F) TempSrc: Temporal SpO2: 100% Weight: 74.8 kg (164 lb 12.8 oz) Pleasant and appears well Sclerae anicteric Oropharynx clear, without thrush or mucositis Neck supple, without adenopathy No axillary lymphadenopathy Lungs are clear. No wheezes or rhonchi Heart is regular, without murmurs Abdomen soft throughout, without tenderness. No organomegaly Extremities without edema. No clubbing Oriented to person, place, and time Results Blood Draw on 05/12/2025 Component Date Value Ref Range Status Total Protein 05/12/2025 PENDING 6.0 - 8.3 g/dL Incomplete IMMUNOGLOBULIN G 05/12/2025 PENDING 614 - 1295 mg/dL Incomplete IgA 05/12/2025 PENDING 69 - 309 mg/dL Incomplete IMMUNOGLOBULIN M 05/12/2025 PENDING 53 - 334 mg/dL Incomplete SPEP 05/12/2025 PENDING Incomplete WBC 05/12/2025 8.25 4.00 - 11.00 K/uL Final RBC 05/12/2025 4.38 4.00 - 5.20 M/uL Final HGB 05/12/2025 12.8 12.0 - 16.0 g/dL Final HCT 05/12/2025 38.4 36.0 - 46.0 % Final PLT 05/12/2025 149 (L) 150 - 450 K/uL Final MCV 05/12/2025 87.7 80.0 - 100.0 fL Final MCH 05/12/2025 29.2 27.0 - 31.0 pg Final MCHC 05/12/2025 33.3 32.0 - 36.0 g/dL Final RDW 05/12/2025 13.7 11.5 - 14.5 % Final MPV 05/12/2025 8.7 8.4 - 12.0 fL Final NRBC 05/12/2025 0.00 0.00 /100 WBCs Final ABSOLUTE NRBC 05/12/2025 0.00 0.00 K/uL Final DIFF METHOD 05/12/2025 Auto Final NEUTS 05/12/2025 81.1 (H) 48.0 - 76.0 % Final LYMPHS 05/12/2025 9.7 (L) 18.0 - 41.0 % Final MONOS 05/12/2025 7.8 4.0 - 11.0 % Final EOS 05/12/2025 0.4 0.0 - 5.0 % Final BASOS 05/12/2025 0.2 0.0 - 1.5 % Final % IMMATURE GRANS 05/12/2025 0.8 0.0 - 0.9 % Final ABSOLUTE NEUTS 05/12/2025 6.69 1.92 - 7.60 K/uL Final ABSOLUTE LYMPHS 05/12/2025 0.80 0.72 - 4.10 K/uL Final ABSOLUTE MONOS 05/12/2025 0.64 0.16 - 1.10 K/uL Final ABSOLUTE EOS 05/12/2025 0.03 0.00 - 0.50 K/uL Final ABSOLUTE BASOS 05/12/2025 0.02 0.00 - 0.15 K/uL Final ABS IMMATURE GRANS 05/12/2025 0.07 0.00 - 0.09 K/uL Final SODIUM 05/12/2025 140 135 - 145 mmol/L Final POTASSIUM 05/12/2025 4.6 3.4 - 5.0 mmol/L Final CHLORIDE 05/12/2025 106 98 - 108 mmol/L Final CO2 05/12/2025 24 23 - 32 mmol/L Final BUN 05/12/2025 20 8 - 25 mg/dL Final CREATININE 05/12/2025 0.87 0.50 - 1.00 mg/dL Final GLUCOSE 05/12/2025 104 70 - 110 mg/dL Final ALBUMIN 05/12/2025 4.4 3.3 - 5.0 g/dL Final TOTAL PROTEIN 05/12/2025 6.9 6.0 - 8.3 g/dL Final CALCIUM 05/12/2025 9.8 8.5 - 10.5 mg/dL Final ALKALINE PHOSPHATASE 05/12/2025 85 30 - 100 U/L Final TOTAL BILIRUBIN 05/12/2025 0.6 0.0 - 1.0 mg/dL Final AST 05/12/2025 28 9 - 32 U/L Final ALT 05/12/2025 22 7 - 33 U/L Final GLOBULIN 05/12/2025 2.5 1.9 - 4.1 g/dL Final EGFR 05/12/2025 67 >59 mL/min/1.73m2 Final Estimated glomerular filtration rate calculated using the CKD-EPI refit equation. ANION GAP 05/12/2025 10 3 - 17 mmol/L Final PHOSPHORUS 05/12/2025 4.1 2.6 - 4.5 mg/dL Final MAGNESIUM 05/12/2025 2.4 1.7 - 2.4 mg/dL Final LDH 05/12/2025 188 110 - 210 U/L Final Impression Multiple myeloma, ISS stage I, presenting as lytic lesion in left scapula No high risk FISH She completed RVD and has achieved a completed response (hematologically), which is very encouraging. She has been on Revlimid maintenance since October,. She started on 15 mg and is now on 10 mg. There has been some gradual increase in free light chain, consistent with a biochemical relapse. InJune 2019, added dexamethasone to Revlimid, and the light chains appear to have stabilized. She hasgained some weight as a result. Also has been having ongoing work up for dyspnea, including cardiac cath in January 2020 which was unrevealing. She has been having loose stools, probably related to the Revlimid. She is on colestipol 1 g bid. Suggested increasing it to 2 g in the morning, 1 g in the afternoon or evening. She has a history of irritable bowel. She uses lactose free milk. She consulted with psychiatry program at [facility], Dr. Ping Beth, in December 2020. She is now seeing . She also has seen GI for loose stools. Pancreatic elastase in the stool was noted to be elevated. Andie touch base with her employee communications intern to see if pancreatic enzyme supplementation is a consideration with this finding. (Alternatively, Revlimid can be a common cause of diarrhea as noted above.) She has started melissa as a single agent July 12, 2021. She is feeling improved on this treatment compared to when she was on Revlimid. After initial modest decrease in light chain, there appears ayla an increase in the free light chain. She also has some left-sided chest wall discomfort, which could be due to a lytic bone lesion. She has a right posterior 9th rib, lesion which can be seen in June 21, [address], though is more apparent on chest CT 12/27/21. Given disease progression, pomalidomide added January 19, 2022 -> melissa pom dex. Decrease in light chain is encouraging. She continues to have shortness of breath. She had a chest CTA February 06, 2022 that was negative for pulmonary embolism. She does though have shortness of breath to a degree at baseline. Has TTE pending03/01/22 At today's visit 06/05/22, I discussed the increase in free light chain. She also has been having various bony complaints. She had a whole body low dose CT after the visit. I later discussed this withher on 06/06/22. This showed new lytic lesions in the skull, new lytic lesions in the right ischium,right superior pubic ramus, and right proximal femur. There may be a lytic lesion that corresponds with the right posterior upper shoulder discomfort. Given these findings, I recommended changing treatment to CyBorD. Carfilzomib could be a consideration, but she has chronic shortness of breath and carfilzomib can be associated with shortness of breath. Started CyBorD June 14, 2022. Significant reduction in light chains is encouraging. She has beenon 21 day schedule. She is starting to develop some worsening of underlying peripheral neuropathy -> now weekly. Suggested changing to every other week; this may be help with some of her symptoms as well as fatigue. At visit in May 2023, there may be some increase in free light chain. There has been additional increase in light chain in September 2023, though increase continues to be modest. Main issues relate to ongoing peripheral neuropathy, which is more bothersome than in the past, probably related to V elcade. I suggested 09/10/23 holding treatment with CyBorD and to refer her for CAR T-cell treatment. She went on to have Abecma 11/01/23. She did well with grade 1 CRS managed with tocilizumab. PET CT 11/28/23 shows few mildly FDG avid lesions. Increased size of 1.8 cm left parietal lytic lesion when compared 11/01/22. In CR hematologically. She has been observed following amol reese. She has been getting IVIG locally. She has been having headaches, which are non specific at this time but could be related to IVIG Brain MRI 05/12/24 to follow up on prior left parietal skull lesion -> decreased in size. She has ongoing discomforts in the hips, SI joint area. Pelvis MRI June 13, 2024 to further evaluate this -> no lesions to explain symptoms (and symptoms are mainly on left side). Degenerative changes seen which may explain her symptoms. She continues to have an excellent response 09/09/24 and 01/06/25 and 05/12/25. Current issues 05/12/2025 relate to arthralgias, hips, low back, which are non specific and probably not myeloma related. Will plan on whole body MRI in four months for restaging. Recommend Abecma CAR T cells 11/01/23 Xgeva 12/10/23. Plan on q6 months -> but given dental issues, consider holding Xgeva. Completed Bactrim for six months Can discontinue Valtrex in October 2024 (one year of treatment) IVIG prn IgG <400. Return for follow up in four months and coordinate with Dr. Muniz Whole body MRI in four months I have maintained a chcf relationship with the patient, overseeing the care of multiple myeloma. This has significantly influenced my decision making and treatment plans during today's encounter. I obtained verbal consent from the patient or their proxy to record this visit for purposes of producing a draft of the encounter documentation. Van Dupont MD [facility] [email or web address] documented in this encounter Plan of Treatment Upcoming Encounters Date Type Department Care Team (Late st Contact Info) Description 05/21/2025 9:30 AM EDT Telemedicine [facility] [address] 7th [address], [address] [place] [address] Mandy Ricks MD [address] [place] [address] [email or web address] Scheduled Orders Name Type Priority Associated Diagnoses Orde r Schedule MRI Whole Body Imaging Routine Multiple myeloma, remission status unspecified Expected: 09/12/2025, Expires: 05/13/2026 documented as of this encounter Goals Goal Patient Goal Type Associated Problems Recent Progress Patient-Stated? Author Acute Care Plan Acute Care Plan No Carolina Jackson RN Note: Cellular therapy/ Immune Effector Cell patient. Patient received cellular therapy product Amol-reese on 11/01/23 Page the on-call Immune Effector Cell Attending via [email or web address] Login [email or web address] Page immediately if patient presents within the [...] team evaluation. Patients should be admitted to [place] [id number] to the Immune Effector Cell Service. documented as of this encounter Visit Diagnoses Diagnosis Multiple myeloma, remission status unspecified- Primary documented in this encounter Care Teams Product Managent Intern Relationship Specialty Start Date End Date Po, Markos Awan MD [address] [place] [phone] PCP - General Internal Medicine 12/07/20 Debra Muniz MD [address] [place] [id number] Medical Oncology 05/27/18 Mohinder Fan MD [address] [place] [address] Consulting Provider Geriatric Psychiatry 05/27/18 Van Dupont MD [address] [place] [address] [email or web address] Primary Oncologist Medical Oncology 10/14/18 Arsh Mata MD [address] [place] [address] [email or web address] Treatment Team Hematology and Oncology 10/16/23 Eufemia Caro, NIKOLAS [address] [place] [address] [email or web address] [email or web address] Associate Infusion Nurse 10/16/23 documented as of this encounter Additional Source Comments The information contained in this document represents components of the legal health record. It is not the complete legal health record.[facility]
--- OUTSIDE RECORDS SUMMARY | 2025-05-15 08:44 | XMS_ITS | Encounter Summary ---
Author Organization [facility] Address [address] [employer] [facility] [address] [place] [address] Phone Care Team Providers Care Land Mobile Radio Technician Name Role Phone Debra Muniz MD Unavailable Mohinder Fan MD Unavailable [phone] Van Dupont MD Unavailable Markos James MD Primary Care Provider [phone] Arsh Mata MD Unavailable [phone] Eufemia Caro RN Unavailable MELISSA [email or web address] Encounter Details Date Type Department Care Team (Late st Contact Info) Description 04/11/2024 [facility] Pass [facility] [address] [facility], 6th [place] [address] Social History Tobacco Use Types Packs/Day Years [...] Info) Description 05/21/2025 9:30 AM EDT Telemedicine [facility] Clinic [address] [facility], 7th Floor, [address] [place] [address] Mandy Ricks MD [address] [place] [address] [email or web address] documented as of this encounter Goals Goal Patient Goal Type Associated Problems Recent Progress Patient-Stated? Author Acute Care Plan Acute Care Plan No Carolina Jackson RN Note: Cellular therapy/ Immune Effector Cell patient. Patient received cellular therapy product Amol-reese on 11/01/23 Page the on-call Immune Effector Cell Attending via www.[employer] Login [facility] Page immediately if patient presents within [...] team evaluation. Patients should be admitted to [place] [address] to the Immune Effector Cell Service. documented as of this encounter Visit Diagnoses Not on filedocumented in this encounter Care Teams Land Mobile Radio Technician Relationship Specialty Start Date End Date Markos James MD [address] [place] [address] [place] [phone] PCP - General Internal Medicine 12/07/20 Debra Muniz MD [address] [place] [address] Medical Oncology 05/27/18 Mohinder Fan MD [address] [place] [address] Consulting Provider Geriatric Psychiatry 05/27/18 Van Dupont MD [address] [place] [address] [email or web address] Primary Oncologist Medical Oncology 10/14/18 Arsh Mata MD [address] [place] [address] [email or web address] Treatment Team Hematology and Oncology 10/16/23 Eufemia Caro, RN [address] [place] [address] [email or web address] [email or web address] Associate Infusion Nurse 10/16/23 documented as of this encounter Additional Source Comments The information contained in this document represents components of the legal health record. It is not the complete legal health record.[facility]
--- OUTSIDE RECORDS SUMMARY | 2025-05-15 08:44 | XMS_ITS | Encounter Summary ---
Author Organization [facility] Address [address] [facility] [address] [place] [address] Phone Care Team Providers Care Comfort Filler Name Role Phone Debra Muniz MD Unavailable Mohinder Fan MD Unavailable [phone] Van Dupont MD Unavailable Markos James MD Primary Care Provider [phone] Arsh Mata MD Unavailable [phone] Eufemia Caro RN Unavailable MELISSA [email or web address] Encounter Details Date Type Department Care Team (Late st Contact Info) Description 05/14/2025 Orders Only [facility] Center for Hematology Malignancies [address] [place] [address], 9th Floor, [address] [place] [address] Provider, MD [facility] [place] [address] Social History Tobacco Use Types Packs/Day Years [...] Info) Description 05/21/2025 9:30 AM EDT Telemedicine [facility] Palliative Care Clinic 32 [facility], 7th Floor, [address] [place] [address] Mandy Ricks MD [address] [place] [address] [email or web address] documented as of this encounter Goals Goal Patient Goal Type Associated Problems Recent Progress Patient-Stated? Author Acute Care Plan Acute Care Plan No Carolina Jackson RN Note: Cellular therapy/ Immune Effector Cell patient. Patient received cellular therapy product Amol-reese on 11/01/23 Page the on-call Immune Effector Cell Attending via www.[employer] Login [facility] Page immediately if patient presents [...] team evaluation. Patients should be admitted to [place] [address] to the Immune Effector Cell Service. documented as of this encounter Procedures Procedure Name Priority Date/Time Associated Diagnosis Comments OUTSIDE LAB Routine 05/14/2025 10:54 AM EDT documented in this encounter Results * Outside Lab (05/14/2025 10:54 AM EDT) us Historical Provider LAB BLOOD ORDERABLES Rosalba l Result documented in this encounter Visit Diagnoses Not on filedocumented in this encounter Care Teams Comfort Filler Relationship Specialty Start Date End Date Po, Markos Awan MD [address] [place] [phone] PCP - General Internal Medicine 12/07/20 Debra Muniz MD [address] [place] [address] Medical Oncology 05/27/18 Mohinder Fan MD [address] [place] [address] Consulting Provider Geriatric Psychiatry 05/27/18 Van Dupont MD [address] [place] [address] [email or web address] u Primary Oncologist Medical Oncology 10/14/18 Arsh Mata MD [address] [place] [address] [email or web address] Treatment Team Hematology and Oncology 10/16/23 Eufemia Caro RN [address] [place] [address] [email or web address] mason Associate Infusion Nurse 10/16/23 documented as of this encounter Additional Source Comments The information contained in this document represents components of the legal health record. It is not the complete legal health record.[facility]
--- OUTSIDE RECORDS SUMMARY | 2025-05-15 08:44 | XMS_ITS | Encounter Summary ---
Author Organization [facility] Address [id number] [place] [phone] Care Team Providers Care Salesperson Stereo Equipment Name Role Phone Markos James MD Primary Care Provider [phone] Encounter Details Date Type Department Care Team (Late st Contact Info) Description 09/25/2024 Lab Requisition [facility] - Main Lab [address] [facility] [place] [address] Glo Espinoza PA [address] [place], [place] [phone] Personal history of malignant neoplasm of bladder [...] AM EST) Final Diagnosis A. Urine, Voided, ([id number]): Negative for high grade urothelial carcinoma. Results of UroVysion fluorescence in situ hybridization (FISH) testing: CEP3: Normal CEP7: Normal CEP17: Normal LSI 9p21: Normal Interpretation: Normal profile Controls stained appropriately. Note: The results are intended as a screening device and should be interpreted in association with other clinical and pathological findings. 10/09/2024 11:[address] [facility] Clinical Information History of bladder neoplasm (malignant) Z85.51 Urine Cytology/FISH (now) 10/09/2024 11:50 AM [facility] Gross Description A. Urine, Voided, ([id number]): Received one ThinPrep slide for cytology screen and one ThinPrep slide for UroVysion FISH 10/09/2024 11:50 AM [facility] Disclaimer Unless otherwise specified, all tissue is 10% NB formalin fixed and paraffin embedded. Technical pathology services provided by [facility] at [address] [place] [address] [address], [place] [address] (CLIA #[id number]/Nara Deal MD, Tobacco Weigher) 10/09/2024 11:50 AM [facility] Tissue Urine specimen from urethra / Unknown 09/19/2024 09/25/2024 8:14 AM EST us Glo [facility] LAB PATHOLOGY ORDERABLES Final Result [facility] [address] [place] [address], documented in this encounter Visit Diagnoses Diagnosis Personal history of malignant neoplasm of bladder documented in this encounter Care Teams Salesperson Stereo Equipment Relationship Specialty Start Date End Date Markos James MD [address] [place] [address] Dr [address] [facility] [place] [address] PCP - General 01/08/24 documented as of this encounter
--- OUTSIDE RECORDS SUMMARY | 2025-05-15 08:44 | XMS_ITS | Encounter Summary ---
Author Organization [facility] Address [address] [facility] [address] [place] [address] Phone Care Team Providers Care Railway Signal Electrician Name Role Phone Debra Muniz MD Unavailable [phone] Mohinder Fan MD Unavailable [phone] Van Dupont MD Unavailable Markos James MD Primary Care Provider [phone] Arsh Mata MD Unavailable [phone] Eufemia Caro RN Unavailable MELISSA [email or web address].[facility] Encounter Details Date Type Department Care Team (Late st Contact Info) Description 01/21/2018 Procedure Pass [facility] Imaging [address] [place] [address] Social History Tobacco Use Types Packs/Day Years [...] Info) Description 05/21/2025 9:30 AM EDT Telemedicine [facility] Pall[facility] Care Clinic [address] [place] [address] 7th Floor, [address] [place] [address] Mandy Ricks MD [address] [place] [address] [email or web address] documented as of this encounter Visit Diagnoses [...] documented as of this encounter Care Teams Railway Signal Electrician Relationship Specialty Start Date End Date Po, Markos Awan MD [address] [place] [phone] PCP - General Internal Medicine 12/07/20 Debra Muniz MD [address] [place] [address] Medical Oncology 05/27/18 Mohinder Fan MD [address] [place] [address] Consulting Provider Geriatric Psychiatry 05/27/18 Van Dupont MD [address] [place] [address] [email or web address] Primary Oncologist Medical Oncology 10/14/18 Arsh Mata MD [address] [place] [address] [email or web address] Treatment Team Hematology and Oncology 10/16/23 Eufemia Caro RN [address] [place] [address] [email or web address] msaon Associate Infusion Nurse 10/16/23 documented as of this encounter Additional Source Comments The information contained in this document represents components of the legal health record. It is not the complete legal health record.[facility]
--- OUTSIDE RECORDS SUMMARY | 2025-05-15 08:44 | XMS_ITS | Encounter Summary ---
Author Organization [facility] Address [address] [employer] [address] [address] Phone Care Team Providers Care Malt House Loader Name Role Phone Debra Muniz MD Unavailable [phone] Mohinder Fan MD Unavailable [phone] Van Dupont MD Unavailable Markos James MD Primary Care Provider Arsh Mata MD Unavailable [phone] Eufemia Caro RN Unavailable MELISSA [email or web address] Encounter Details Date Type Department Care Team (Late st Contact Info) Description 09/11/2023 Procedure Pass [facility] [address] [place] [address] Social History Tobacco Use Types Packs/Day Years [...] Info) Description 05/21/2025 9:30 AM EDT Telemedicine [facility] Palliative Care Clinic [address] [facility], 7th Floor, [address] [place] [address] Mandy Ricks MD [address] [place] [address] [email or web address] documented as of this encounter Visit [...] documented as of this encounter Care Teams Malt House Loader Relationship Specialty Start Date End Date Markos James MD [address] [place] [phone] PCP - General Internal Medicine 12/07/20 Debra Muniz MD [address] [place] [address] Medical Oncology 05/27/18 Mohinder Fan MD [address] [place] [address] Consulting Provider Geriatric Psychiatry 05/27/18 Van Dupont MD [address] [place] [address] [email or web address] Primary Oncologist Medical Oncology 10/14/18 Arsh Mata MD [address] [place] [address] [email or web address] Treatment Team Hematology and Oncology 10/16/23 Eufemia Caro, NIKOLAS [address] [place] [address] [email or web address] [email or web address] Associate Infusion Nurse 10/16/23 documented as of this encounter Additional Source Comments The information contained in this document represents components of the legal health record. It is not the complete legal health record.[facility]
--- OUTSIDE RECORDS SUMMARY | 2025-05-15 08:44 | XMS_ITS | Encounter Summary ---
Author Organization [facility] Address [address] [facility] [address] [place] [address] Phone Care Team Providers Care Wheel Of Fortune Dealer Name Role Phone Debra Muniz MD Unavailable [phone] Mohinder Fan MD Unavailable [phone] Van Dupont MD Unavailable Markos James MD Primary Care Provider [phone] Arsh Mata MD Unavailable [phone] uEfemia Caro RN Unavailable MELISSA [email or web address].[email or web address] Encounter Details Date Type Department Care Team (Late st Contact Info) Description 09/13/2017 Procedure Pass [facility] Imaging [address] [place] [address] Social History Tobacco Use Types Packs/Day Years [...] Info) Description 05/21/2025 9:30 AM EDT Telemedicine [facility] Pall[facility] [address] [facility], 7th Floor, [address] [place] [address] Mandy Ricks MD [address] [place] [address] MARGIE@[email or web address] .[email or web address] documented as of this encounter [...] documented as of this encounter Care Teams Wheel Of Fortune Dealer Relationship Specialty Start Date End Date Po, Markos Awan MD [address] [place] [address] [place] [phone] PCP - General Internal Medicine 12/07/20 Debra Muniz MD [address] [place] [address] Medical Oncology 05/27/18 Mohinder Fan MD [address] [place] [address] Consulting Provider Geriatric Psychiatry 05/27/18 Van Dupont MD [address] [place] [address] [email or web address] Primary Oncologist Medical Oncology 10/14/18 Arsh Mata MD [address] [place] [address] [email or web address] Treatment Team Hematology and Oncology 10/16/23 Eufemia Caro, NIKOLAS [address] [place] [address] [email or web address] [email or web address] Associate Infusion Nurse 10/16/23 documented as of this encounter Additional Source Comments The information contained in this document represents components of the legal health record. It is not the complete legal health record.[facility]
--- OUTSIDE RECORDS SUMMARY | 2025-05-15 08:44 | XMS_ITS | Encounter Summary ---
Author Organization [facility] Address [address] [facility] [address] [place] [address] Phone Care Team Providers Care Building Construction Supervisor Name Role Phone Debra Muniz MD Unavailable Mohinder Fan MD Unavailable [phone] Van Dupont MD Unavailable Markos James MD Primary Care Provider Arsh Mata MD Unavailable [phone] Eufemia Caro RN Unavailable MELISSA [email or web address] Reason for Visit * Reason Comments Medication Refill Encounter Details Date Type Department Care Team ([facility] st Contact Info) Description 12/12/2024 Refill [facility] Psychiatry Oncology [address] [place] [address], 10th Floor, [address] [place] [address] Sri Gandhi MD [address] [place] [address] [email or web address] Medication Refill Social History Tobacco Use Types [...] Description 05/21/2025 9:30 AM EDT Telemedicine [facility] Pall[facility] Care Clinic 32 [facility], 7th Floor, [address] [place] [address] Mandy Ricks MD [address] [place] [address] MARGIE@[email or web address] documented as of this encounter Goals Goal Patient Goal Type Associated Problems Recent Progress Patient-Stated? Author Acute Care Plan Acute Care Plan No Carolina Jackson RN Note: Cellular therapy/ Immune Effector Cell patient. Patient received cellular therapy product Amol-reese on 11/01/23 Page the on-call Immune Effector Cell Attending via www.[employer] Login [facility] Page immediately if patient presents [...] team evaluation. Patients should be admitted to [place] [address] to the Immune Effector Cell Service. documented as of this encounter Visit Diagnoses Diagnosis Posttraumatic stress disorder documented in this encounter Care Teams Building Construction Supervisor Relationship Specialty Start Date End Date Po, Markos Awan MD [address] [place] [address] [address] [place] [phone] PCP - General Internal Medicine 12/07/20 Debra Muniz MD [address] [place] [address] Medical Oncology 05/27/18 Mohinder Fan MD [address] [place] [address] Consulting Provider Geriatric Psychiatry 05/27/18 Van Dupont MD [address] [place] [address] [email or web address] Primary Oncologist Medical Oncology 10/14/18 Arsh Mata MD [address] [place] [address] [email or web address] Treatment Team Hematology and Oncology 10/16/23 Eufemia Caro, NIKOLAS [address] [place] [address] [email or web address]@[email or web address] mason Associate Infusion Nurse 10/16/23 documented as of this encounter Additional Source Comments The information contained in this document represents components of the legal health record. It is not the complete legal health record.[facility]
--- OUTSIDE RECORDS SUMMARY | 2025-05-15 08:44 | XMS_ITS | Encounter Summary ---
Author Organization [facility] Address [address] [employer] [address] [address] Phone Care Team Providers Care Rate Clerk Name Role Phone Debra Muniz MD Unavailable Mohinder Fan MD Unavailable [phone] Van Dupont MD Unavailable Markos James MD Primary Care Provider [phone] Arsh Mata MD Unavailable [phone] Eufemia Caro RN Unavailable MELISSA [email or web address] Encounter Details Date Type Department Care Team (Late st Contact Info) Description 05/12/2024 Procedure Pass [address] [place] [address] Social History Tobacco Use Types Packs/Day Years [...] Info) Description 05/21/2025 9:30 AM EDT Telemedicine [facility] [address] [facility], 7th Floor, [address] [place] [address] Mandy Ricks MD [address] [place] [address] [email or web address]@[email or web address] documented as of this encounter Goals Goal Patient Goal Type Associated Problems Recent Progress Patient-Stated? Author Acute Care Plan Acute Care Plan No Carolina Jackson RN Note: Cellular therapy/ Immune Effector Cell patient. Patient received cellular therapy product Amol-reese on 11/01/23 Page the on-call Immune Effector Cell Attending via www.[employer] Login [facility] Page immediately [...] team evaluation. Patients should be admitted to [place] [address] to the Immune Effector Cell Service. documented as of this encounter Visit Diagnoses Not on filedocumented in this encounter Care Teams Rate Clerk Relationship Specialty Start Date End Date Jacob, Markos Awan MD [address] [place] [address] [place] [phone] PCP - General Internal Medicine 12/07/20 Debra Muniz MD [address] [place] [address] Medical Oncology 05/27/18 Mohinder Fan MD [address] [place] [address] Consulting Provider Geriatric Psychiatry 05/27/18 Van Dupont MD [address] [place] [address] [email or web address] u Primary Oncologist Medical Oncology 10/14/18 Arsh Mata MD [address] [place] [address] [email or web address] Treatment Team Hematology and Oncology 10/16/23 Eufemia Caro, NIKOLAS [address] [place] [address] [email or web address] mason Associate Infusion Nurse 10/16/23 documented as of this encounter Additional Source Comments The information contained in this document represents components of the legal health record. It is not the complete legal health record.[facility]
--- OUTSIDE RECORDS SUMMARY | 2025-05-15 08:45 | XMS_ITS | Encounter Summary ---
Author Organization [employer] Address [address] [facility] 7t [place] [address] Care Team Providers Care Product Management Manager Name Role Phone Unavailable Primary Care [...]
--- OUTSIDE RECORDS SUMMARY | 2025-05-15 08:45 | XMS_ITS | Encounter Summary ---
Author Organization [facility] Address [address] [facility] [address] [place] [address] Phone Care Team Providers Care Hammerer Name Role Phone Debra Muniz MD Unavailable Mohinder Fan MD Unavailable [phone] Van Dupont MD Unavailable Markos James MD Primary Care Provider Arsh Mata MD Unavailable [phone] Eufemia Caro RN Unavailable MELISSA [email or web address] Encounter Details Date Type Department Care Team (Late st Contact Info) Description 12/14/2023 Procedure Pass [facility] - MRI [address] [facility], 6th [place] [address] Social History Tobacco Use Types Packs/Day Years [...] Info) Description 05/21/2025 9:30 AM EDT Telemedicine [facility] [facility] [address] [facility], 7th Floor, [address] [place] [address] Mandy Ricks MD [address] [place] [address] [email or web address] documented as of this encounter Goals Goal Patient Goal Type Associated Problems Recent Progress Patient-Stated? Author Acute Care Plan Acute Care Plan No Carolina Jackson RN Note: Cellular therapy/ Immune Effector Cell patient. Patient received cellular therapy product Amol-reese on 11/01/23 Page the on-call Immune Effector Cell Attending via www.[employer] [facility] Page immediately if patient presents [...] Patients should be admitted to [place] [address] to the Immune Effector Cell Service. documented as of this encounter Visit Diagnoses Not on filedocumented in this encounter Care Teams Hammerer Relationship Specialty Start Date End Date Markos James MD [address] [place] [address] [place] [phone] PCP - General Internal Medicine 12/07/20 Debra Muniz MD [address] [place] [address] Medical Oncology 05/27/18 Mohinder Fan MD [address] [place] [address] Consulting Provider Geriatric Psychiatry 05/27/18 Van Dupont MD [address] [place] [address] [email or web address] Primary Oncologist Medical Oncology 10/14/18 Arsh Mata MD [address] [place] [address] [email or web address] Treatment Team Hematology and Oncology 10/16/23 Eufemia Caro, RN [address] [place] [address] [email or web address] [email or web address] Associate Infusion Nurse 10/16/23 documented as of this encounter Additional Source Comments The information contained in this document represents components of the legal health record. It is not the complete legal health record.[facility]
--- OUTSIDE RECORDS SUMMARY | 2025-05-15 08:45 | XMS_ITS | Clinical Summary ---
Author Organization [facility] Address [address] [place] [address] Phone Care Team Providers Care Bar Machine Operator Multiple Spindle Name Role Phone Markos James MD Primary Care Provider [phone] Allergies Active Allergy Reactions Criticality Noted Date [...] COVID-19 Vaccine (8 - Moderna risk season) 2025 05/27/2024, 06/18/2023, 05/18/2022, Additional history exists Influenza [...] age to complete this topic Insurance MEDICARE [facility] Care Teams Bar Machine Operator Multiple Spindle Relationship Specialty Start Date End Date Markos James MD NPI: [id number] [place] [address] Dr [address] [facility] [place] [address] PCP - General 01/08/24
--- OUTSIDE RECORDS SUMMARY | 2025-05-15 08:45 | XMS_ITS | Encounter Summary ---
Author Organization [facility] Address [address] [employer] [facility] [address] [place] [address] Phone Care Team Providers Care Sole Molding Machine Operator Name Role Phone Debra Muniz MD Unavailable Mohinder Fan MD Unavailable [phone] Van Dupont MD Unavailable Markos James MD Primary Care Provider [phone] Arsh Mata MD Unavailable [phone] Eufemia Caro RN Unavailable MELISSA [email or web address] Encounter Details Date Type Department Care Team (Late st Contact Info) Description 02/06/2017 Procedure Pass [facility] Imaging [address] [place] [address] Social History Tobacco Use Types Packs/Day Years [...] Info) Description 05/21/2025 9:30 AM EDT Telemedicine [facility] [address] [place] [address] 7th Floor, [address] [place] [address] Mandy Ricks MD [address] [place] [address] MARGIE@[email or web address] documented as of this encounter Visit [...] documented as of this encounter Care Teams Sole Molding Machine Operator Relationship Specialty Start Date End Date Po, Markos Awan MD [address] [place] [address] [phone] PCP - General Internal Medicine 12/07/20 Debra Muniz MD [address] [place] [address] Medical Oncology 05/27/18 Mohinder Fan MD [address] [place] [address] Consulting Provider Geriatric Psychiatry 05/27/18 Van Dupont MD [address] [place] [address] [email or web address] Primary Oncologist Medical Oncology 10/14/18 Arsh Mata MD [address] [place] [address] [email or web address] Treatment Team Hematology and Oncology 10/16/23 Eufemia Caro RN [address] [place] [address] [email or web address].basia mason Associate Infusion Nurse 10/16/23 documented as of this encounter Additional Source Comments The information contained in this document represents components of the legal health record. It is not the complete legal health record.[facility]
--- OUTSIDE RECORDS SUMMARY | 2025-05-15 08:45 | XMS_ITS | Encounter Summary ---
Author Organization [employer] Address [address] [facility] 7t [place] [address] Care Team Providers Care Catastrophe Claims Supervisor Name Role Phone Unavailable Primary Care [...]
--- OUTSIDE RECORDS SUMMARY | 2025-05-15 08:45 | XMS_ITS | Encounter Summary ---
Author Organization [facility] Address [address] [facility] [address] [place] [address] Phone Care Team Providers Care Web Page Designer Name Role Phone Debra Muniz MD Unavailable Mohinder Fan MD Unavailable [phone] Van Dupont MD Unavailable Markos James MD Primary Care Provider [phone] Arsh Mata MD Unavailable [phone] Eufemia Caro RN Unavailable MELISSA [email or web address] [place] [email or web address] Encounter Details Date Type Department Care Team (Late st Contact Info) Description 02/06/[address] [facility] Imaging [address] [place] [address] Social History Tobacco Use Types Packs/Day Years [...] [facility] [address] [place] [address] 7th Floor, [address] [place] [address] Mandy Ricks MD [address] [place] [address] MARGIE@[email or web address] [place] [email or web address] documented as of this encounter Visit [...] documented as of this encounter Care Teams Web Page Designer Relationship Specialty Start Date End Date Po, Markos Awan MD [address] [place] [address] [phone] PCP - General Internal Medicine 12/07/20 Debra Muniz MD [address] [place] [address] Medical Oncology 05/27/18 Mohinder Fan MD [address] [place] [address] Consulting Provider Geriatric Psychiatry 05/27/18 Van Dupont MD [address] [place] [address] [email or web address] Primary Oncologist Medical Oncology 10/14/18 Arsh Mata MD [address] [place] [address] [email or web address] Treatment Team Hematology and Oncology 10/16/23 Eufemia Caro RN [address] [place] [address] [email or web address]@[email or web address] [email or web address].basia mason Associate Infusion Nurse 10/16/23 documented as of this encounter Additional Source Comments The information contained in this document represents components of the legal health record. It is not the complete legal health record.[facility]
--- OUTSIDE RECORDS SUMMARY | 2025-05-15 08:45 | XMS_ITS | Encounter Summary ---
Author Organization [facility] Address [address] [employer] [facility] [address] [place] [address] Phone Care Team Providers Care Reservations Sales Agent Name Role Phone Debra Muniz MD Unavailable Mohinder Fan MD Unavailable [phone] Van Dupont MD Unavailable Markos James MD Primary Care Provider [phone] Arsh Mata MD Unavailable [phone] Eufemia Caro RN Unavailable MELISSA [email or web address].[facility] Encounter Details Date Type Department Care Team (Late st Contact Info) Description 01/24/2017 [facility] [address] [place] [address] Social History Tobacco Use Types Packs/Day Years [...] [facility] [address] [place] [address] 7th Floor, [address] [place] [address] Mandy Ricks MD [address] [place] [address] MARGIE@[email or web address] documented as of this encounter Visit Diagnoses [...] documented as of this encounter Care Teams Reservations Sales Agent Relationship Specialty Start Date End Date Po, Markos Awan MD [address] [place] [address] [phone] PCP - General Internal Medicine 12/07/20 Debra Muniz MD [address] [place] [address] Medical Oncology 05/27/18 Mohinder Fan MD [address] [place] [address] Consulting Provider Geriatric Psychiatry 05/27/18 Van Dupont MD [address] [place] [address] [email or web address] Primary Oncologist Medical Oncology 10/14/18 Arsh Mata MD [address] [place] [address] [email or web address] Treatment Team Hematology and Oncology 10/16/23 Eufemia Caro RN [address] [place] [address] [email or web address] mason Associate Infusion Nurse 10/16/23 documented as of this encounter Additional Source Comments The information contained in this document represents components of the legal health record. It is not the complete legal health record.[facility]
--- OUTSIDE RECORDS SUMMARY | 2025-05-15 08:45 | XMS_ITS | Encounter Summary ---
Author Organization [facility] Address [address] [place] [address] [address] [place] [address] Phone Care Team Providers Care Console Operator Name Role Phone Debra Muniz MD Unavailable Mohinder Fan MD Unavailable [phone] Van Dupont MD Unavailable Markos James MD Primary Care Provider Arsh Mata MD Unavailable [phone] Eufemia Caro RN Unavailable MELISSA [email or web address].[facility] Encounter Details Date Type Department Care Team (Late st Contact Info) Description 06/05/2022 Procedure Pass [facility] [place] [address] [facility], 6th [place] [address] Social History Tobacco Use Types Packs/Day Years [...] Info) Description 05/21/2025 9:30 AM EDT Telemedicine [facility] [address] [facility], 7th Floor, [address] [place] [address] Mandy Ricks MD [address] [place] [address] MARGIE@[email or web address] documented as of this encounter [...] documented as of this encounter Care Teams Console Operator Relationship Specialty Start Date End Date Markos James MD [address] [place] [address] [address] [place] [address] [phone] PCP - General Internal Medicine 12/07/20 Debra Muniz MD [address] [place] [address] Medical Oncology 05/27/18 Mohinder Fan MD [address] [place] [address] Consulting Provider Geriatric Psychiatry 05/27/18 Van Dupont MD [address] [place] [address] [email or web address] Primary Oncologist Medical Oncology 10/14/18 Arsh Mata MD [address] [place] [address] (work) [email or web address] Treatment Team Hematology and Oncology 10/16/23 Eufemia Caro RN [address] [place] [address] [email or web address] mason Associate Infusion Nurse 10/16/23 documented as of this encounter Additional Source Comments The information contained in this document represents components of the legal health record. It is not the complete legal health record.[facility]
--- OUTSIDE RECORDS SUMMARY | 2025-05-15 08:45 | XMS_ITS | Encounter Summary ---
Author Organization [facility] Address [address] [facility] [address] [place] [address] Phone Care Team Providers Care Carton Forming Machine Operator Name Role Phone Debra Muniz MD Unavailable Mohinder Fan MD Unavailable [phone] Van Dupont MD Unavailable Markos James MD Primary Care Provider [phone] Arsh Mata MD Unavailable [phone] Eufemia Caro RN Unavailable MELISSA RAUSCH@[email or web address].[facility] Encounter Details Date Type Department Care Team (Late st Contact Info) Description 04/17/2017 Procedure Pass [facility] Imaging [address] [place] [address] Social History Tobacco Use Types Packs/Day Years [...] Description 05/21/2025 9:30 AM EDT Telemedicine [facility] 32 [facility], 7th Floor, [address] [place] [address] Mandy Ricks MD [address] [place] [address] MARGIE@[email or web address] .[facility] documented as of this encounter Visit Diagnoses [...] documented as of this encounter Care Teams Carton Forming Machine Operator Relationship Specialty Start Date End Date Po, Markos Awan MD [address] [place] [address] [place] [address] [phone] PCP - General Internal Medicine 12/07/20 Debra Muniz MD [address] [place] [address] Medical Oncology 05/27/18 Mohinder Fan MD [address] [place] [address] Consulting Provider Geriatric Psychiatry 05/27/18 Van Dupont MD [address] [place] [address] [email or web address] Primary Oncologist Medical Oncology 10/14/18 Arsh Mata MD [address] [place] [address] [email or web address] Treatment Team Hematology and Oncology 10/16/23 Eufemia Caro, NIKOLAS [address] [place] [address] YESSENIA@[email or web address] mason Associate Infusion Nurse 10/16/23 documented as of this encounter Additional Source Comments The information contained in this document represents components of the legal health record. It is not the complete legal health record.[facility]
--- OUTSIDE RECORDS SUMMARY | 2025-05-15 08:45 | XMS_ITS | Encounter Summary ---
Author Organization [facility] Address [address] [place] [address] [address] [place] [address] Phone Care Team Providers Care Maintenance Dispatcher Name Role Phone Debra Muniz MD Unavailable Mohinder Fan MD Unavailable [phone] Van Dupont MD Unavailable Markos James MD Primary Care Provider [phone] Arsh Mata MD Unavailable [phone] Eufemia Caro RN Unavailable MELISSA [email or web address].[email or web address] Encounter Details Date Type Department Care Team (Late st Contact Info) Description 10/30/2022 Procedure Pass [facility] [place] 32 [facility], 6th [place] [address] Social History Tobacco Use Types Packs/Day Years [...] Info) Description 05/21/2025 9:30 AM EDT Telemedicine [facility] 32 [facility], 7th Floor, [address] [place] [address] Mandy Ricks MD 55 [place] [address] MARGIE@[email or web address] documented as of this encounter Visit [...] documented as of this encounter Care Teams Maintenance Dispatcher Relationship Specialty Start Date End Date Markos Jamse MD [address] [place] [address] [address] [place] [address] [phone] PCP - General Internal Medicine 12/07/20 Debra Muniz MD [address] [place] [address] Medical Oncology 05/27/18 Mohinder Fan MD [address] [place] [address] Consulting Provider Geriatric Psychiatry 05/27/18 Van Dupont MD [address] [place] [address] [email or web address] Primary Oncologist Medical Oncology 10/14/18 Arsh Mata MD 55 [place] [address] (work) [email or web address] Treatment Team Hematology and Oncology 10/16/23 Eufemia Caro RN [address] [place] [address] YESSENIA@[email or web address] mason Associate Infusion Nurse 10/16/23 documented as of this encounter Additional Source Comments The information contained in this document represents components of the legal health record. It is not the complete legal health record.[facility]
--- OUTSIDE RECORDS SUMMARY | 2025-05-15 08:45 | XMS_ITS | Encounter Summary ---
Author Organization [facility] Address [address] [place] [address] [address] [place] [address] Phone Care Team Providers Care Layup Worker Name Role Phone Debra Muniz MD Unavailable [phone] Mohinder Fan MD Unavailable [phone] Van Dupont MD Unavailable Markos James MD Primary Care Provider Arsh Mata MD Unavailable [phone] Eufemia Caro RN Unavailable MELISSA [email or web address].[place] Encounter Details Date Type Department Care Team (Late st Contact Info) Description 12/27/[address] - [address], [address] [place], [place] [phone] Social History Tobacco Use Types Packs/Day Years [...] Description 05/21/2025 9:30 AM EDT Telemedicine [facility] 32 [facility], 7th Floor, [address] [place] [address] Mandy Ricks MD [address] [place] [address] [email or web address]@[email or web address] documented as of this [...] documented as of this encounter Care Teams Layup Worker Relationship Specialty Start Date End Date Po, Markos Awan MD [address] [place] [address] [address] [place] [address] [phone] PCP - General Internal Medicine 12/07/20 Debra Muniz MD [address] [place] [address] Medical Oncology 05/27/18 Mohinder Fan MD [address] [place] [address] Consulting Provider Geriatric Psychiatry 05/27/18 Van Dupont MD [address] [place] [address] [email or web address] Primary Oncologist Medical Oncology 10/14/18 Arsh Mata MD 55 [place] [address] [email or web address] Treatment Team Hematology and Oncology 10/16/23 Eufemia Caro RN [address] [place] [address] [email or web address].basia mason Associate Infusion Nurse 10/16/23 documented as of this encounter Additional Source Comments The information contained in this document represents components of the legal health record. It is not the complete legal health record.[facility]
--- OUTSIDE RECORDS SUMMARY | 2025-05-15 08:45 | XMS_ITS | Encounter Summary ---
Author Organization [facility] Address [facility] [employer] [facility] [address] [place] [address] Phone Care Team Providers Care Director Of Dietary Name Role Phone Debra Muniz MD Unavailable Mohinder Fan MD Unavailable [phone] Van Dupont MD Unavailable Markos James MD Primary Care Provider Arsh Mata MD Unavailable [phone] Eufemia Caro RN Unavailable MELISSA [email or web address].[place].[facility] Encounter Details Date Type Department Care Team (Late st Contact Info) Description 03/15/2021 Procedure Pass [facility] - [place] 32 [facility], 6th [place] [address] Social History Tobacco Use Types Packs/Day Years [...] Info) Description 05/21/2025 9:30 AM EDT Telemedicine [facility] 32 [facility], 7th Floor, [address] [place] [address] Mandy Ricks MD [address] [place] [address] MARGIE@[email or web address] documented as of this encounter [...] documented as of this encounter Care Teams Director Of Dietary Relationship Specialty Start Date End Date Markos James MD [address] [place] [address] [address] [place] [address] [phone] PCP - General Internal Medicine 12/07/20 Debra Muniz MD [address] [place] [address] Medical Oncology 05/27/18 Mohinder Fan MD [address] [place] [address] Consulting Provider Geriatric Psychiatry 05/27/18 Van Dupont MD [address] [place] [address] [email or web address] Primary Oncologist Medical Oncology 10/14/18 Arsh Mata MD [address] [place] [address] (work) [email or web address] Treatment Team Hematology and Oncology 10/16/23 Eufemia Caro RN [address] [place] [address] [email or web address]@[email or web address] mason Associate Infusion Nurse 10/16/23 documented as of this encounter Additional Source Comments The information contained in this document represents components of the legal health record. It is not the complete legal health record.[facility]
--- OUTSIDE RECORDS SUMMARY | 2025-05-15 08:45 | XMS_ITS ---
Author Organization [facility] Address [address] [facility] [address] [place] [address] Phone Care Team Providers Care Electric Car Operator Name Role Phone Debra Muniz MD Unavailable Mohinder Fan MD Unavailable [phone] Van Dupont MD Unavailable Markos James MD Primary Care Provider [phone] Arsh Mata MD Unavailable [phone] Eufemia Caro RN Unavailable [email or web address] Active Problems Patient Care Coordination No te Formatting of this note migh t be different from the original. Statement of completion of cellular therapy team care. Cleared to return to [facility] Myeloma team: As of DATE 11/30/23 - Patient is currently without any acute Cell Therapy related signs and symptoms and has been cleared by their Cell Therapy MD to transfer care back to their primary oncology team. MD to MD pass off will occur separately. For any questions please contact: [facility] Cancer Center: Cellular Therapy Team phone: [phone] [facility] CAR-T fax: [phone] Problem Noted Date Diagnosed Date Unspecified severe [...] and treatment. She felt very safe at [facility] and feels she has received excellent medical care through [facility] cancer center. She has some trepidation about [...] reassurance that she can still call the [facility] cancer center for advice, day or night [...] and treatment. She felt very safe at [facility] and feels she has received excellent medical care through [facility] cancer center. She has some trepidation about [...] reassurance that she can still call the [facility] cancer center for advice, day or night [...] and treatment. She felt very safe at [facility] and feels she has received excellent medical care through [facility] cancer center. She has some trepidation about [...] reassurance that she can still call the [facility] cancer center for advice, day or night [...] and treatment. She felt very safe at [facility] and feels she has received excellent medical care through [facility] cancer center. She has some trepidation about [...] reassurance that she can still call the [facility] cancer center for advice, day or night [...] and treatment. She felt very safe at [facility] and feels she has received excellent medical care through [facility] cancer center. 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 Van Dupont (Myeloma), Dr. Bobby Mata (CART) Disease Status: Imaging 10/23/23 from OSH showed persistent disease. Did not receive bridging therapy. 10/26/23 SPEP and Bmbx w/ normal pattern and no morphological evidence of myeloma in marrow. Prior treatments: RVD+rev; Oj; DPd; CyBorD Treatment: Admitted for Amol-reese (Ab[place]ma), [...] & Plan (10/31/2023 7:44 AM EST): Diagnosis: [place] [facility] Multiple Myeloma Primary Oncologist: Dr. Van [...]
--- OUTSIDE RECORDS SUMMARY | 2025-05-15 08:45 | XMS_ITS | Clinical Summary ---
Author Organization [facility] Address [address] [place] [address] Care Team Providers Care Food Aide Name Role Phone Unavailable Primary Care Provider [...] 01/17/2020 07/18/2019 Dental Oral Exam 04/05/2022 10/05/2021 Dental X-Ray: Bitewings 06/09/2024 06/08/2023, 10/05 Dental X-Ray: Full Mouth 10/06/2024 10/05/2021 Tobacco Screening 04/25/2025 04/25/2024 COVID-19 Vaccine ( season) 2025 06/18/2023, 05/18/2022, 10/29/2021, Additional history exists Influenza Vaccine (#1) 2025 , 06/07/2022, 07/01/2021, [...] Insurance DENTAL - [facility] Tee [id number]
--- OUTSIDE RECORDS SUMMARY | 2025-05-15 08:45 | XMS_ITS | Patient Health Record ---
Author Organization [facility] christine [facility] Address [address] [place] [address] Care Team Providers Care Extruder Operator Vertical Name Role Phone Corina ATKINS, Mandeep Primary Care Provider Ashvin Henderson Unavailable [phone] Allergies Allergen (clinical drug ingredient) Drug/Non Drug [...] National Govt [employer] [address] [facility] [place] [address] [id number] Moni Cole Self - patient is the insured [employer] [address] [place] [address] [phone] [id number] Moni Cole Self - patient is the [...]
--- OUTSIDE RECORDS SUMMARY | 2025-05-15 08:45 | XMS_ITS | Encounter Summary ---
Author Organization [employer] [facility] Address [address] [facility] 7[address] [place] [address] Care Team Providers Care Wildlife Control Operator Name Role Phone Unavailable Primary Care Provider Unavailabl e Reason for Visit * Reason Onset Date Comments appt 08/13/2023 Encounter Details Date Type Department Care Team (Late st Contact Info) Description 08/13/2023 Telephone [facility] [address] [place] [address] Lala Phillips DDS appt Social History Tobacco [...]
--- OUTSIDE RECORDS SUMMARY | 2025-05-15 08:46 | XMS_ITS | Clinical Summary ---
Author Organization [facility] Address [address] [facility] [address] [place] [address] Phone Care Team Providers Care Websphere Developer Name Role Phone Debra Muniz MD Unavailable Mohinder Fan MD Unavailable [phone] Van Dupont MD Unavailable Po, Markos Awan MD Primary Care Provider Arsh Mata MD Unavailable [phone] Eufemia Caro RN Unavailable [email or web address] Allergies Active Allergy Reactions Criticality Noted Date [...] therapy team care. Cleared to return to [facility] Myeloma team: As of DATE 11/30/23 - Patient is currently without any acute Cell Therapy related signs and symptoms and has been cleared by their Cell Therapy MD to transfer care back to their primary oncology team. MD to MD pass off will occur separately. For any questions please contact: [facility] Cancer Center: Cellular Therapy Team phone: [phone] [facility] CAR-T fax: [phone] Problem Noted Date Diagnosed Date Unspecified severe [...] concerns reported today, Per chart review from [facility] visit with palliative care on 08/21/24 Moni has a history of anxiety, is seen by outpatient Psycho-Oncology team (Dr. Gandhi), takes lorazepam PRN with excellent effect. Anxiety is exacerbated by multiple sources of uncertainty related to her cancer diagnosis and treatment. She felt very safe at [facility] and feels she has received excellent medical care through [facility] cancer center. She has some trepidation about [...] reassurance that she can still call the [facility] cancer center for advice, day or night [...] and treatment. She felt very safe at [facility] and feels she has received excellent medical care through [facility] cancer center. She has some trepidation about [...] reassurance that she can still call the [facility] cancer center for advice, day or night #ACP: Code status: full code HCP: Davno (form on file) Assessment & Plan (05/22/2024 [...] and treatment. She felt very safe at [facility] and feels she has received excellent medical care through [facility] cancer center. She has some trepidation about [...] reassurance that she can still call the [facility] cancer center for advice, day or night [...] and treatment. She felt very safe at [facility] and feels she has received excellent medical care through [facility] cancer center. She has some trepidation about [...] reassurance that she can still call the [facility] cancer center for advice, day or night [...] and treatment. She felt very safe at [facility] and feels she has received excellent medical care through [facility] cancer center. 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 Van [...] & Plan (10/31/2023 7:44 AM EST): Diagnosis: [place] [facility] Multiple Myeloma Primary Oncologist: Dr. Van [...] daily - Allopurinol 300 mg PO daily Encounters Date Type Department Care Team Description 05/14/2025 Orders Only [facility] [address] [place] [address], 9th Floor, [address] [place] [address] ProviderBina MD 05/12/2025 12:30 PM EDT Office Visit [facility]ematology Malignancies [address] [place] [address], 9[address] Floor, [address] [place] [address] Van Dupont MD Multiple myeloma, remission status unspecified (Primary Dx) from Last 3 Months Social History Tobacco Use Types Packs/Day Years [...] 12.8 oz) 025 12:38 PM EDT Height 160 cm (5' 3 ) 06/08/2024 3:08 PM EDT Body Mass Index 29.19 06/08/2024 3:08 PM EDT Plan of Treatment Upcoming Encounters Date Type Department Care Team (Late st Contact Info) Description 05/21/2025 9:30 AM EDT Telemedicine [facility] Palliative Care [facility] [address] [facility], 7th [address], [address] [place] [address] Mandy Ricks MD [address] [place] [address] [email or web address] Health Maintenance Due Date Last Done Comments DEPRESSION SCREENING 1956 OSTEOPOROSIS SCREENING INITIAL (ONE-TIME) 02/08/2009 INFLUENZA VACCINE (#1) 2025 , 06/18/2023, 06/07/2022, Additional history exists COVID-19 VACCINE ( season) 2025 05/27/2024, 06/18/2023, 05/18/2022, Additional history exists CREATININE LEVEL 05/12/2026 05/12/2025, 02/2025, 09/09/2024, Additional history exists POTASSIUM LEVEL 05/12/2026 05/12/2025, 05/0 02/2025, 09/09/2024, Additional history exists Adult Td,Tdap Booster 12/04/2034 12/04/2024 PNEUMOCOCCAL VACCINES (50+ years) Completed 10/07/2018, 01/15/2017 RSV VACCINE Completed 07/14/2023 ZOSTER VACCINES Completed 04/30/2025, 02/13/2025 HEPATITIS A VACCINES Aged Out No long [...] the on-call Immune Effector Cell Attending via [email or web address] Login [facility] Page immediately if patient presents [...] Patients should be admitted to [place] [address] to the Immune Effector Cell Service. Medical Devices Not on file Procedures Procedure Name Priority Date/Time Associated Diagnosis Comments OUTSIDE LAB Routine 05/14/2025 10:54 AM EDT IRON AND IRON BINDING CAPACITY Routine 05/12/2025 11:19 AM EDT Multiple myeloma not having achieved remission LDH Routine 05/12/2025 11:19 AM EDT Multiple myeloma not having achieved remission MAGNESIUM Routine 05/12/2025 11:19 AM EDT Multiple myeloma not having achieved remission PHOSPHORUS Routine 05/12/2025 11:19 AM EDT Multiple myeloma not having achieved remission VITAMIN B12 Routine 05/12/2025 11:19 AM EDT Multiple myeloma not having achieved remission FOLATE Routine 05/12/2025 11:19 AM EDT Multiple myeloma not having achieved remission FERRITIN Routine 05/12/2025 11:19 AM EDT Multiple myeloma not having achieved remission COMPREHENSIVE METABOLIC PANEL Routine 05/12/2025 11:19 AM EDT Multiple myeloma not having achieved remission CBC AND DIFFERENTIAL Routine 05/12/2025 11:19 AM EDT Multiple myeloma not having achieved remission SPEP PANEL Routine 05/12/2025 11:19 AM EDT Multiple myeloma not having achieved remission FREE LIGHT CHAINS, SERUM Routine 05/12/2025 11:19 AM EDT Multiple myeloma not having achieved remission BETA-2 MICROGLOBULIN, BLOOD Routine 05/12/2025 11:19 AM EDT Multiple myeloma not having achieved remission from Last 3 Months Results * Outside Lab (05/14/2025 10:54 AM EDT) us Historical Provider LAB BLOOD ORDERABLES Rosalba l Result * LDH (05/12/2025 11:19 AM EDT) LDH 188 110 - 210 U/L [facility] 05/12/2025 11:1 9 AM EDT 05/12/2025 11:29 AM EDT Van Dupont MD LAB BLOOD ORDERABLES Final Resul t Performing Organization Address [facility] Co de Phone Number [address] [address] * Comprehensive metabolic panel (05/12/2025 11:19 AM EDT) SODIUM 140 135 - 145 mmol/L [facility] POTASSIUM 4.6 3.4 - 5.0 mmol/L [facility] CHLORIDE 106 98 - 108 mmol/L [facility] CO2 24 23 - 32 mmol/L [facility] BUN 20 8 - 25 mg/dL [facility] CREATININE 0.87 0.50 - 1.00 mg/dL [facility] GLUCOSE 104 70 - 110 mg/dL [facility] ALBUMIN 4.4 3.3 - 5.0 g/dL [facility] TOTAL PROTEIN 6.9 6.0 - 8.3 g/dL [facility] CALCIUM 9.8 8.5 - 10.5 mg/dL [facility] ALKALINE PHOSPHATASE 85 30 - 100 U/L [facility] TOTAL BILIRUBIN 0.6 0.0 - 1.0 mg/dL [facility] AST 28 9 - 32 U/L [facility] ALT 22 7 - 33 U/L [facility] GLOBULIN 2.5 1.9 - 4.1 g/dL [facility] EGFR 67 >59 mL/min/1. 73m2 [facility] Comment:Estimated glomerular filtration rate calculated using the CKD-EPI refit equation. ANION GAP 10 3 - 17 mmol/L [facility] 05/12/2025 11:1 9 AM EDT 05/12/2025 11:29 AM EDT us Van Dupont MD LAB BLOOD ORDERABLES Final Resul t Performing Organization Address City/[facility]/ZIP Co de Phone Number [address] [address] * (ABNORMAL) SPEP panel (05/12/2025 11:19 AM EDT) Total Protein 6.7 6.0 - 8.3 g/dL [facility] IMMUNOGLOBULIN G 684 614 - 1,295 mg/dL [facility] IgA 17(L) 69 - 309 mg/dL [facility] IMMUNOGLOBULIN M 55 53 - 334 mg/dL [facility] SPEP Normal pattern [facility] Comment: Normal SPEP: Normal pattern Carmen Rosado M.D., Director Clinical Immunology Laboratory [id number] Serum protein electrophoresis results should be evaluated in the context of separately reported serum free light chain levels and ratio when these additional results are available. 05/12/2025 11:1 9 AM EDT 05/12/2025 11:30 AM EDT Van Dupont MD LAB BLOOD ORDERABLES Final Resul t Performing Organization Address [facility] Co de Phone Number [address] [address] * Iron and iron binding capacity (05/12/2025 11:19 AM EDT) IRON 77 30 - 160 ug/dL [facility] IRON BINDING CAPACITY 378 230 - 404 ug/dL [facility] TRANSFERRIN SATURAT. 20 14 - 50 % [facility] 05/12/2025 11:1 9 AM EDT 05/12/2025 11:29 AM EDT Van Dupont MD LAB BLOOD ORDERABLES Final Resul t Performing Organization Address City/[facility] Co de Phone Number [address] [address] * Free light chains, serum (05/12/2025 11:19 AM EDT) FREE KAPPA LT CHAIN 5.3 3.3 - 19.4 mg/L [facility] FREE LAMBDA LT CHAIN 6.3 5.7 - 26.3 mg/L [facility] FREE KAPPA LAMBDA RAT 0.84 0.30 - 1.70 [facility] 05/12/2025 11:1 9 AM EDT 05/12/2025 11:30 AM EDT us Van Dupont MD LAB BLOOD ORDERABLES Final Resul t [facility] [address] [place] [address] * (ABNORMAL) CBC and differential (05/12/2025 11:19 AM EDT) WBC 8.25 4.00 - 11.00 K/uL [facility] RBC 4.38 4.00 - 5.20 M/uL [facility] HGB 12.8 12.0 - 16.0 g/dL [facility] HCT 38.4 36.0 - 46.0 % [facility] PLT 149(L) 150 - 450 K/uL [facility] MCV 87.7 80.0 - 100.0 fL [facility] MCH 29.2 27.0 - 31.0 pg [facility] MCHC 33.3 32.0 - 36.0 g/dL [facility] RDW 13.7 11.5 - 14.5 % [facility] MPV 8.7 8.4 - 12.0 fL [facility] NRBC 0.00 0.00 /100 WBCs [facility] ABSOLUTE NRBC 0.00 0.00 K/uL [facility] DIFF METHOD Auto [facility] NEUTS 81.1(H) 48.0 - 76.0 % [facility] LYMPHS 9.7(L) 18.0 - 41.0 % [facility] MONOS 7.8 4.0 - 11.0 % [facility] EOS 0.4 0.0 - 5.0 % [facility] BASOS 0.2 0.0 - 1.5 % [facility] % IMMATURE GRANS 0.8 0.0 - 0.9 % [facility] ABSOLUTE NEUTS 6.69 1.92 - 7.60 K/uL [facility] ABSOLUTE LYMPHS 0.80 0.72 - 4.10 K/uL [facility] ABSOLUTE MONOS 0.64 0.16 - 1.10 K/uL [facility] ABSOLUTE EOS 0.03 0.00 - 0.50 K/uL [facility] ABSOLUTE BASOS 0.02 0.00 - 0.15 K/uL [facility] ABS IMMATURE GRANS 0.07 0.00 - 0.09 K/uL [facility] Blood 05/12/2025 11:1 9 AM EDT 05/12/2025 11:29 AM EDT us Van Dupont MD LAB BLOOD ORDERABLES Final Resul t Performing Organization Address City/[facility] Co de Phone Number [address] [address] * Phosphorus (05/12/2025 11:19 AM EDT) PHOSPHORUS 4.1 2.6 - 4.5 mg/dL [facility] 05/12/2025 11:1 9 AM EDT 05/12/2025 11:29 AM EDT us Van Dupont MD LAB BLOOD ORDERABLES Final Resul t Performing Organization Address [facility] Co de Phone Number [address] [address] * Magnesium (05/12/2025 11:19 AM EDT) MAGNESIUM 2.4 1.7 - 2.4 mg/dL [facility] 05/12/2025 11:1 9 AM EDT 05/12/2025 11:29 AM EDT us Van Dupont MD LAB BLOOD ORDERABLES Final Resul t Performing Organization Address City/[facility] Co de Phone Number [address] [address] * Folate (05/12/2025 11:19 AM EDT) FOLIC ACID >20.0 >4.7 ng/mL [facility] 05/12/2025 11:1 9 AM EDT 05/12/2025 11:30 AM EDT us Van Dupont MD LAB BLOOD ORDERABLES Final Resul t Performing Organization Address City/[facility] Co de Phone Number [address] [address] * (ABNORMAL) Ferritin (05/12/2025 11:19 AM EDT) FERRITIN 248(H) 10 - 200 ug/L [facility] 05/12/2025 11:1 9 AM EDT 05/12/2025 11:29 AM EDT us Van Dupont MD LAB BLOOD ORDERABLES Final Resul t Performing Organization Address City/[facility]/ZIP Co de Phone Number [address] [address] * Vitamin B12 (05/12/2025 11:19 AM EDT) VITAMIN B12 1,317 >231 pg/mL [facility] 05/12/2025 11:1 9 AM EDT 05/12/2025 11:29 AM EDT us Van Dupont MD LAB BLOOD ORDERABLES Final Resul t Performing Organization Address City/[facility] Co de Phone Number [address] [address] * (ABNORMAL) Beta-2 microglobulin, blood (05/12/2025 11:19 AM EDT) BETA 2 MICROGLOBUL 2.65(H) 0.80 - 2.34 mcg/mL [facility] 05/12/2025 11:1 9 AM EDT 05/12/2025 11:30 AM EDT us Van Dupont MD LAB BLOOD ORDERABLES Final Resul t Performing Organization Address City/[facility] Co de Phone Number [address] [address] from Last 3 Months Insurance [employer] SUPPLEMENT MEDICARE PART A & B [facility] MEDEX SUPPLEMENT MEDICARE PART A & B [employer] CROSS MEDEX SUPPLEMENT MEDICARE PART A & B [employer] MEDEX SUPPLEMENT MEDICARE PART A & B [employer] CROSS MEDEX SUPPLEMENT MEDICARE PART A & B [employer] CROSS MEDEX SUPPLEMENT MEDICARE PART A & B [employer] MEDEX SUPPLEMENT MEDICARE PART A & B [employer] MEDEX SUPPLEMENT MEDICARE PART A & [place] [address] [place] [address] CROSS MEDEX SUPPLEMENT MEDICARE PART A & B Advance Directives For more information, please contact: [phone] (9AM - 5PM [place], Sunday-Sunday) Documents on File Type Date Recorded Patient Toppiece Chopper Expl anation Healthcare Proxy 11/12/2023 5:43 PM * Full Code (Latest Code Status on File) Date Activated Date Inactivated Comments 10/31/2023 4:30 PM Question Answer Comments Code Status Confirmed With: Patient Healthcare Agents on File Name Relationship Healthcare Agent Vern aguayo Communication Davon Cole Spouse .Primary Health Care Agent (Proxy form on file) [email or web address] Care Teams Websphere Developer Relationship Specialty Start Date End Date Po, Markos Awan MD [address] [place] [phone] PCP - General Internal Medicine 12/07/20 Debra Muniz MD [address] [place] [address] Medical Oncology 05/27/18 Mohinder Fan MD [address] [place] [phone] Consulting Provider Geriatric Psychiatry 05/27/18 Van Dupont MD [address] [place] [phone] [email or web address] Primary Oncologist Medical Oncology 10/14/18 Arsh Mata MD [address] [place] [phone] [email or web address] Treatment Team Hematology and Oncology 10/16/23 Eufemia Caro, NIKOLAS [address] [place] [address] [email or web address] Associate Infusion Nurse 10/16/23 Additional Source Comments The information contained in this document represents components of the legal health record. It is not the complete legal health record.[facility]
--- NOTE | 2025-05-15 09:43 | HO.ANESPROP2 ---
Documented by User: Britta Pendleton NP 05/15/25 09:49 HPI - Anesthesia Eval Consult details Narrative: 80yo F for Upper Endoscopy Follows [facility] Cardiology for HTN, GAUTAM. Stable at 03/2025 office visit for routine 1 year f/u (atypical CP at night, likely anxiety related) Follows [facility] Pulmo for COPD, chest tightness, GAUTAM. Stable on albuterol and short periods of prn O2. Myeloma with car T-cell therapy and IVIG. [facility] Active Problems Active Problems: All Active Problems Blocked ear (Acute) Peripheral neuropathy (Acute) Diarrhea (Acute) Bladder cancer (Acute) Cough (Acute) RLQ abdominal tenderness (Acute) Upper abdominal pain (Acute) URI, acute (Acute) Bilateral primary osteoarthritis of knee (Acute) Sinus congestion (Acute) Piriformis syndrome of left side (Acute) Sacroiliac joint dysfunction (Acute) Lumbar spondylosis (Acute) Sciatica (Acute) Polyarthralgia (Acute) Current chronic use of systemic steroids (Acute) Bilateral knee pain (Acute) Postprandial epigastric pain (Acute) Upper respiratory tract infection (Acute) COVID-19 virus infection (Acute) Rotator cuff impingement syndrome of right shoulder (Acute) Chronic right shoulder pain (Acute) Cancer related pain (Acute) Wrist pain, right (Acute) Cholelithiasis (Acute) Hyperkalemia (Acute) Generalized anxiety disorder (Acute) History of foot surgery (Acute) Insomnia (Acute) Hypercholesterolemia (Acute) Bilateral carotid artery stenosis (Acute) Multiple myeloma (Acute) Chronic diarrhea (Acute) Anxiety (Acute) Urinary urgency (Acute) Dyspnea on exertion (Acute) COPD (chronic obstructive pulmonary disease) (Acute) GERD (gastroesophageal reflux disease) (Acute) Hypertension (Acute) Past Medical History Medical History Osteoarthritis of knees, bilateral Abnormal finding on MRI of brain Long-term current use of intravenous immunoglobulin (IVIG) Tinea pedis Urinary incontinence, urge Urinary frequency Urinary urgency TSH elevation Nasal congestion Hospital discharge follow-up Sepsis Pneumonia Acute exacerbation of chronic obstructive pulmonary disease Chronic cough Generalized anxiety disorder Right low back pain Hand pain Dysphagia, pharyngoesophageal phase Costochondritis Dyspnea on exertion COPD (chronic obstructive pulmonary disease) Chronic diarrhea Anxiety Cataract Bladder cancer GERD (gastroesophageal reflux disease) Asthma IBS (irritable bowel syndrome) Hypertension Multiple myeloma Family History Family History Father Pancreatic cancer Diabetes Stroke Mother No problems noted. Sister Diabetes Son No problems noted. Family history of problems with anesthesia: No Surgical History Surgical History History of oral surgery History of esophagogastroduodenoscopy (EGD) H/O colonoscopy History of eyelid surgery History of tonsillectomy H/O wrist surgery H/O eye surgery History of arthroscopy of both knees H/O rotator cuff surgery H/O cardiac catheterization History of Problems with Anesthesia: No Social History Social History Household Members: Sp[facility] Are you a primary life care planner to a significant other at home: No Do you presently have visiting nurse or other home services: Yes ([facility]) Alcohol intake: never Patient Tobacco Use Status: Former Tobacco user Tobacco use type: Cigarette e-Cigarette/Vaping Use: Never Used Second Hand Smoke Exposure: No Use of substances other than those prescribed or required for medical reasons: No Advance Directives: No Advance Directives Information Provided: Yes Advance Directives Date on File: 07/20/23 service: No Current occupational status: retired Cognitive needs: No Hearing needs: No Vision needs: Yes (Glasses) Meds Allergies Allergy/AdvReac Type Severity Reaction Status Date / Time oxycodone (From OXYCONTIN) Allergy Mild PRURITUS, Verified 05/14/25 12:26 severe itching adhesive tape Allergy Unknown BLISTERS Verified 05/14/25 12:26 cephalexin (Keflex) Allergy Unknown hives Verified 05/14/25 12:26 doxycycline (DOXYCYCLINE) AdvReac Intermediate STOMACH Verified 05/14/25 12:26 PAINS Home Medications ?Medication ?Instructions ?Recorded ?Confirmed ?Last Taken ?Type mecobalamin (vitamin B12) 1,000 1,000 mcg PO DAILY 12/30/20 05/14/25 Unknown History mcg chewable tablet (B12 Active) desvenlafaxine succinate 25 mg 25 mg PO DAILY 09/21/23 05/14/25 Unknown History tablet,extended release 24 hr acetaminophen 500 mg oral powder 1,000 mg PO Q6H PRN Pain 04/15/24 09/11/25 Unknown History packet (Tylenol Extra Strength) ascorbate calcium (vitamin C) 500 500 mg PO DAILY 12/17/23 05/14/25 Unknown History mg tablet cholecalciferol (vitamin D3) 50 50 mcg PO DAILY 12/17/23 05/14/25 Unknown History mcg (2,000 unit) capsule multivitamin 1 tab PO DAILY 12/17/23 05/14/25 Unknown History triamcinolone acetonide 55 mcg 1 spray intranasal DAILY 12/17/23 05/14/25 Unknown History nasal spray aerosol (Nasacort Allergy) diphenoxylate-atropine 2.5 1 tab PO BEDTIME PRN diareah 04/29/24 05/14/25 Unknown History mg-0.025 mg tablet (Lomotil) melatonin 3 mg capsule 3 mg PO BEDTIME PRN 02/03/25 05/14/25 Unknown History probiotic PO 02/03/25 05/14/25 Unknown History fkgvdsrbskt-trm-sdjdvzwgy-hrb tab PO 05/06/25 05/14/25 Unknown History 149-hyalur 500 mg-500 mg-66.7 mg tablet (Ihhjoygnqxl-Zqkylcitzzd-QDR (with antiox)) magnesium 250 mg tablet 250 mg PO DAILY 05/06/25 05/14/25 Unknown History Exam Pertinent Lab Results Pertinent Lab Results: Laboratory Tests 04/15/25 10:43 WBC 6.3 Hgb 12.6 Hct 37.2 Plt Count 137 L Sodium 141 Potassium 4.7 Chloride 108 Carbon Dioxide 23 BUN 17 H Creatinine 0.87 Narrative Narrative: EKG 03/2025 EKG Details: Sinus bradycardia 58 beats per minute, normal axis, inferior Q-waves, QTC 404 milliseconds. Assessment and Plan Assessment Anesthesia Assessment: Chart Reviewed Final Anesthetic Review Family History of Problems with Anesthesia: No History of Problems with Anesthesia: No Documented by User: Isabelle Gonzales MD 05/15/25 15:27 [facility] Past Medical History Medical History Osteoarthritis of knees, bilateral Abnormal finding on MRI of brain Long-term current use of intravenous immunoglobulin (IVIG) Tinea pedis Urinary incontinence, urge Urinary frequency Urinary urgency TSH elevation Nasal congestion Hospital discharge follow-up Sepsis Pneumonia Acute exacerbation of chronic obstructive pulmonary disease Chronic cough Generalized anxiety disorder Right low back pain Hand pain Dysphagia, pharyngoesophageal phase Costochondritis Dyspnea on exertion COPD (chronic obstructive pulmonary disease) Chronic diarrhea Anxiety Cataract Bladder cancer GERD (gastroesophageal reflux disease) Asthma IBS (irritable bowel syndrome) Hypertension Multiple myeloma Family History Family History Father Pancreatic cancer Diabetes Stroke Mother No problems noted. Sister Diabetes Son No problems noted. Surgical History Surgical History History of oral surgery History of esophagogastroduodenoscopy (EGD) H/O colonoscopy History of eyelid surgery History of tonsillectomy H/O wrist surgery H/O eye surgery History of arthroscopy of both knees H/O rotator cuff surgery H/O cardiac catheterization Social History Social History Household Members: Spouse Housing: [facility] [place] Are you a primary life care planner to a significant other at home: No Do you presently have visiting nurse or other home services: Yes ([facility]NA) Alcohol intake: never Patient Tobacco Use Status: Former Tobacco user Tobacco use type: Cigarette e-Cigarette/Vaping Use: Never Used Second Hand Smoke Exposure: No Use of substances other than those prescribed or required for medical reasons: No Advance Directives: No Advance Directives Information Provided: Yes Advance Directives Date on File: 07/20/23 service: No Current occupational status: retired Cognitive needs: No Hearing needs: No Vision needs: Yes (Glasses) Meds Allergies Allergy/AdvReac Type Severity Reaction Status Date / Time oxycodone (From OXYCONTIN) Allergy Mild PRURITUS, Verified 05/14/25 12:26 severe itching adhesive tape Allergy Unknown BLISTERS Verified 05/14/25 12:26 cephalexin (Keflex) Allergy Unknown hives Verified 05/14/25 12:26 doxycycline (DOXYCYCLINE) AdvReac Intermediate STOMACH Verified 05/14/25 12:26 PAINS Home Medications ?Medication ?Instructions ?Recorded ?Confirmed ?Last Taken ?Type mecobalamin (vitamin B12) 1,000 1,000 mcg PO DAILY 12/30/20 05/14/25 Unknown History mcg chewable tablet (B12 Active) desvenlafaxine succinate 25 mg 25 mg PO DAILY 09/21/23 05/14/25 Unknown History tablet,extended release 24 hr acetaminophen 500 mg oral powder 1,000 mg PO Q6H PRN Pain 12/17/23 05/14/25 Unknown History packet (Tylenol Extra Strength) ascorbate calcium (vitamin C) 500 500 mg PO DAILY 12/17/23 05/14/25 Unknown History mg tablet cholecalciferol (vitamin D3) 50 50 mcg PO DAILY 12/17/23 05/14/25 Unknown History mcg (2,000 unit) capsule multivitamin 1 tab PO DAILY 12/17/23 05/14/25 Unknown History triamcinolone acetonide 55 mcg 1 spray intranasal DAILY 12/17/23 05/14/25 Unknown History nasal spray aerosol (Nasacort Allergy) diphenoxylate-atropine 2.5 1 tab PO BEDTIME PRN diareah 04/29/24 05/14/25 Unknown History mg-0.025 mg tablet (Lomotil) melatonin 3 mg capsule 3 mg PO BEDTIME PRN 02/03/25 05/14/25 Unknown History probiotic PO 02/03/25 05/14/25 Unknown History njndidnobpx-rvk-gqyqvaxea-hrb tab PO 05/06/25 05/14/25 Unknown History 149-hyalur 500 mg-500 mg-66.7 mg tablet (Simzuusvwsj-Imliaekycxs-RZY (with antiox)) magnesium 250 mg tablet 250 mg PO DAILY 05/06/25 05/14/25 Unknown History Exam Airway Mallampati Class: II TM Dist: >3cm Neck ROM: Limited Heart: rrr Lungs: cta Assessment and Plan Assessment Anesthesia Assessment: Anesthesia Plan Discussed Final Anesthetic Review NPO: Yes ASA Class: III Final Preanesthetic Review: No Changes in Pt Med Stat, Meds/Allgs Chart Reviewed, Consent Obtained/Reviewed and Anes Risks/Benef Reviewed Patient Risk: Intermediate Procedure Risk: Low Anesthetic Plan Anesthetic Plan: MAC: Disposition: Standard PACU
[2025-05-15 13:35] VITALS: BMI 28.9
[2025-05-15 13:49] VITALS: BP 142/46; PULSE 66; RESP 16; TEMP 36.6; O2SAT 97
[2025-05-15] MEDS: Lactated Ringers 1,000 ML 100 ML IVCONT (13:50)
--- NOTE | 2025-05-15 16:08 | MHC.SHP ---
Pre-Procedural Eval Section A - 24 Hr Update-Section A only Date of Service: 05/15/25 The patient is an INPATIENT: No Changes since office visit: Yes Patient answered all questions; No Cold of Flu in the past 2 weeks, No New Medical Problems and No Changes in Medication The patient has been examined within 24 hours of the surgical procedure. The History & Physical has been completed within 30 days and I have reviewed it.: Yes Section B - Complete if H&P > 30 days Chief Complaint: gerd Allergies: Allergies Allergy/AdvReac Type Severity Reaction Status Date / Time oxycodone (From OXYCONTIN) Allergy Mild PRURITUS, Verified 05/14/25 12:26 severe itching adhesive tape Allergy Unknown BLISTERS Verified 05/14/25 12:26 cephalexin (Keflex) Allergy Unknown hives Verified 05/14/25 12:26 doxycycline (DOXYCYCLINE) AdvReac Intermediate STOMACH Verified 05/14/25 12:26 PAINS Plan Diagnosis/Plan: Change (Proceed with EGD) I have reviewed the history and physical and performed a pertinent physical examination on my patient. No changes have occurred unless specified. Time Spent With Patient Time: Total time managing care of this patient today ____ minutes.
--- NOTE | 2025-05-15 16:36 | P.OP_ITS ---
Operative Note Operative Note Date of Service: 05/15/25 Narrative: FLEXIBLE TRANSORAL UPPER GASTROINTESTINAL ENDOSCOPY WITH BIOPSIES AND ESOPHAGEAL BALLOON DILATION Pre-op diagnosis: GERD, dysphagia and odynophagia Post-op diagnosis: GERD, Schatzki's ring Endoscopist:? Trena Dotson MD Anesthesia:?MAC UPPER ENDOSCOPY Consent: Indications for the procedure and potential complications of bleeding, perforation, reaction to medications and missed diagnosis were discussed with the patient and informed consent was obtained. Instrument: Olympus GIF H 190 mid size upper endoscope Monitoring: Vital signs and clinical assessment, continuous EKG monitoring, Pulse oximetry, Carbon Dioxide monitoring and blood pressure monitoring were done throughout the procedure. Procedure: The patient was placed in the left lateral decubitis position and pre-procedure medications were administered and a bite block was placed. The endoscope was inserted into the mouth and advanced under direct vision to the third part of duodenum. A careful inspection was made as the upper endoscope was withdrawn including a retroflexed examination of the proximal stomach; Findings and interventions are described below. Findings: Larynx: Normal Esophagus: GE junction at 35 cms. Mildly tortuous esophagus with a non- obstructing Schatzki's ring at GE junction. Esophageal balloon dilation of LES was performed with an 18 mm CRE balloon x 60 seconds Esophageal balloon dilation of UES was performed with an 18 mm CRE balloon x 60 seconds Biopsies were obtained from proximal and distal esophagus to check for EOE. Stomach: Mild diffuse gastric erythema - biopsies obtained during previous endoscopy were negative for Helicobacter pylori. Grade 2 flap valve on retroflexed examination of the cardia. Duodenum: Normal bulb and descending duodenum. Intervention: Biopsies and esophageal balloon dilation as noted above Impression and Post Procedure Diagnosis: Endoscopy Findings: ESOPHAGUS: Mildly tortuous esophagus with a non-obstructing Schatzki's ring at GE junction. Esophageal balloon dilation of LES was performed with an 18 mm CRE balloon x 60 seconds Esophageal balloon dilation of UES was performed with an 18 mm CRE balloon x 60 seconds Biopsies were obtained from proximal and distal esophagus to check for EOE. STOMACH: Diffuse gastritis DUODENUM: Normal Plan: Pt has a FU appointment on 08/20/[address] Dotson. Above findings were reviewed with the patient and relevant handouts were given and the discharge area. Pt was advised a trail of magic mouthwash for throat irritation. BIOPSIES SHOWED: A. Esophagus, distal, biopsy: Squamous mucosa with no specific change; no evidence of eosinophilic esophagitis; no columnar mucosa present. B. Esophagus, proximal, biopsy: Squamous mucosa with no specific change; no evidence of eosinophilic esophagitis; no columnar mucosa present.
[2025-05-15 16:40] VITALS: BP 80/36; PULSE 61; RESP 16; TEMP 36.2; O2SAT 95
[2025-05-15 16:43] VITALS: BP 82/37
[2025-05-15 16:45] VITALS: BP 94/31
[2025-05-15 16:55] VITALS: BP 93/34; PULSE 75; RESP 16; O2SAT 94
[2025-05-15] MEDS: Mag&Al/Sim/Diphenhyd/Lidocaine 10 ML ORAL.SUSP PO (16:55)
[2025-05-15 17:10] VITALS: BP 108/41; PULSE 72; RESP 16; TEMP 36.2; O2SAT 95
== END 2025-05-15 17:21 | disposition home or self-care (01) ==
PROVIDERS: PCP Internal Medicine; Visit Provider Internal Medicine Gastroenterology
PROC: 0DJ08ZZ Inspection of Upper Intestinal Tract, Via Natural or Artificial Opening Endoscopic (ICD-10-PCS; CPT 43235; principal; 2025-05-15 15:10)
DX: K21.9 Gastro-esophageal reflux disease without esophagitis (principal); K22.2 Esophageal obstruction; K22.4 Dyskinesia of esophagus; K29.60 Other gastritis without bleeding; R13.10 Dysphagia, unspecified; K52.9 Noninfective gastroenteritis and colitis, unspecified; I10 Essential (primary) hypertension; J45.909 Unspecified asthma, uncomplicated; Z79.02 Long term (current) use of antithrombotics/antiplatelets; Z79.899 Other long term (current) drug therapy
CPT/HCPCS: 43249; 43239; 88305; C1726; J1596; J2003; J2704; J3010

== ENCOUNTER → 2025-05-15 13:15 | Outpatient (BNV) | payer MEDICARE, SELFPAY | PROVIDERS: PCP Internal Medicine; Visit Provider Internal Medicine Gastroenterology | DX: K21.9 Gastro-esophageal reflux disease without esophagitis (principal); R13.10 Dysphagia, unspecified; K22.2 Esophageal obstruction; K29.70 Gastritis, unspecified, without bleeding | CPT/HCPCS: 43239; 43249 ==

== ENCOUNTER 2025-05-18 10:15 | Outpatient (RCR) | payer MEDICARE, SELFPAY ==
[2025-03-16] VITALS (8 sets, daily range): BP systolic 110–137; BP diastolic 39–51; PULSE 58–68; RESP 16; TEMP 35.9; O2SAT 97; BMI 30.8
[2025-03-16 10:34] LABS: MANUAL DIFF FLAG NO
[2025-03-16 10:38] LABS: Hematocrit 37.1 % (37.0-47.0); Hemoglobin 12.7 g/dl (12.0-16.0); Imm Gran Abs Auto 0.05 X10*3/uL (0.00-0.03); Imm Gran Pct Auto 0.9 % (0.0-0.4); Lymphocytes Absolute Auto 0.5 X10*3/uL (1.2-4.9); Mean Corpuscular HGB Conc 34.2 g/dl (31.0-35.0); Mean Corpuscular Hemoglobin 29.5 pg (27.0-33.0); Mean Corpuscular Volume 86.3 fL (80.0-98.0); NRBC Abs Auto 0.000 X10*3/uL (0.0-0.012); NRBC Pct Auto 0.0 /100WBC (0.0-0.2); Platelet Count 127 X10*3/uL (160-400); Red Blood Count 4.30 X10*6/uL (4.20-5.50); White Blood Count 5.6 X10*3/uL (4.8-10.8)
[2025-03-16] MEDS: Immune Globulin 10% Gammagard 5 GM/50 ML VIAL IV (10:43)
[2025-03-16] MEDS: Immune Globulin 10% Gammagard 20 GM/200 ML VIAL IV (11:14)
[2025-03-16 11:33] LABS: Alanine Aminotransferase 27 U/L (0-31); Albumin Level 4.2 g/dL (3.5-5.0); Alkaline Phosphatase 66 U/L (39-117); Anion Gap 10 (12-20); Aspartate Amino Transferase 24 U/L (5-31); Blood Urea Nitrogen 19 mg/dL (9-16); Calcium 9.0 mg/dL (8.4-10.2); Carbon Dioxide 24 mmol/L (22-29); Chloride 111 mmol/L (96-108); Creatinine Clr Calc Pharmacy 54.8; Estimated Glomerular Filt Rate > 60; Potassium 4.3 mmol/L (3.3-5.1); Sodium 141 mmol/L (135-145); Total Protein 5.9 g/dL (6.5-8.0)
--- NOTE | 2025-04-15 10:15 | HO.INF ---
per dr patino, plan for iv 40meq kcl over 2 hrs after ivig is done.
[2025-04-15 10:21] VITALS: BP 129/45; PULSE 58; RESP 18; TEMP 35.9; O2SAT 97
[2025-04-15] MEDS: Immune Globulin 10% Gammagard 5 GM/50 ML VIAL IV (10:43)
[2025-04-15 10:44] VITALS: BP 119/50; PULSE 55
[2025-04-15 10:52] LABS: MANUAL DIFF FLAG NO
[2025-04-15 11:00] VITALS: BP 124/44; PULSE 54
[2025-04-15] MEDS: Immune Globulin 10% Gammagard 20 GM/200 ML VIAL IV (11:26)
[2025-04-15 11:32] LABS: Hematocrit 37.2 % (37.0-47.0); Hemoglobin 12.6 g/dl (12.0-16.0); Imm Gran Abs Auto 0.06 X10*3/uL (0.00-0.03); Imm Gran Pct Auto 1.0 % (0.0-0.4); Lymphocytes Absolute Auto 0.5 X10*3/uL (1.2-4.9); Mean Corpuscular HGB Conc 33.9 g/dl (31.0-35.0); Mean Corpuscular Hemoglobin 29.1 pg (27.0-33.0); Mean Corpuscular Volume 85.9 fL (80.0-98.0); NRBC Abs Auto 0.000 X10*3/uL (0.0-0.012); NRBC Pct Auto 0.0 /100WBC (0.0-0.2); Platelet Count 137 X10*3/uL (160-400); Red Blood Count 4.33 X10*6/uL (4.20-5.50); White Blood Count 6.3 X10*3/uL (4.8-10.8)
[2025-04-15 11:34] VITALS: BP 120/46; PULSE 56
[2025-04-15 11:45] VITALS: BP 128/47; PULSE 54
[2025-04-15 12:11] LABS: Alanine Aminotransferase 28 U/L (0-31); Albumin Level 4.6 g/dL (3.5-5.0); Alkaline Phosphatase 73 U/L (39-117); Anion Gap 15 (12-20); Aspartate Amino Transferase 29 U/L (5-31); Blood Urea Nitrogen 17 mg/dL (9-16); Calcium 9.3 mg/dL (8.4-10.2); Carbon Dioxide 23 mmol/L (22-29); Chloride 108 mmol/L (96-108); Creatinine Clr Calc Pharmacy 50.4; Estimated Glomerular Filt Rate > 60; Potassium 4.7 mmol/L (3.3-5.1); Sodium 141 mmol/L (135-145); Total Protein 6.6 g/dL (6.5-8.0)
[2025-04-15 12:15] VITALS: BP 119/45; PULSE 58
[2025-05-18 10:33] VITALS: BP 126/57; PULSE 55; RESP 16; TEMP 36.1; O2SAT 96
[2025-05-18 10:55] VITALS: BMI 29.2
[2025-05-18 10:59] LABS: MANUAL DIFF FLAG NO
[2025-05-18] MEDS: Immune Globulin 10% Gammagard 5 GM/50 ML VIAL IV (11:00)
[2025-05-18 11:16] LABS: Hematocrit 39.1 % (37.0-47.0); Hemoglobin 13.0 g/dl (12.0-16.0); Imm Gran Abs Auto 0.06 X10*3/uL (0.00-0.03); Imm Gran Pct Auto 1.0 % (0.0-0.4); Lymphocytes Absolute Auto 0.7 X10*3/uL (1.2-4.9); Mean Corpuscular HGB Conc 33.2 g/dl (31.0-35.0); Mean Corpuscular Hemoglobin 28.8 pg (27.0-33.0); Mean Corpuscular Volume 86.5 fL (80.0-98.0); NRBC Abs Auto 0.000 X10*3/uL (0.0-0.012); NRBC Pct Auto 0.0 /100WBC (0.0-0.2); Platelet Count 144 X10*3/uL (160-400); Red Blood Count 4.52 X10*6/uL (4.20-5.50); White Blood Count 5.7 X10*3/uL (4.8-10.8)
[2025-05-18 11:17] LABS: Alanine Aminotransferase 26 U/L (0-31); Albumin Level 4.9 g/dL (3.5-5.0); Alkaline Phosphatase 74 U/L (39-117); Anion Gap 14 (12-20); Aspartate Amino Transferase 33 U/L (5-31); Blood Urea Nitrogen 17 mg/dL (9-16); Calcium 9.7 mg/dL (8.4-10.2); Carbon Dioxide 27 mmol/L (22-29); Chloride 107 mmol/L (96-108); Creatinine Clr Calc Pharmacy 42.7; Estimated Glomerular Filt Rate 53; Potassium 4.6 mmol/L (3.3-5.1); Sodium 143 mmol/L (135-145); Total Protein 7.2 g/dL (6.5-8.0)
[2025-05-18 11:30] VITALS: BP 146/52; PULSE 54
[2025-05-18] MEDS: Immune Globulin 10% Gammagard 20 GM/200 ML VIAL IV (11:38)
[2025-05-18 11:45] VITALS: BP 128/38; PULSE 52
[2025-05-18 12:00] VITALS: BP 109/36; PULSE 51
[2025-05-18 12:33] VITALS: BP 103/46; PULSE 56
[2025-05-18 13:00] VITALS: BP 122/32; PULSE 60
== END 2025-06-01 11:46 | disposition home or self-care (01) ==
LOC: HO.INF 10:15
PROVIDERS: Visit Provider Internal Medicine Medical Oncology
DX: C90.00 Multiple myeloma not having achieved remission (principal)
CPT/HCPCS: 36415; 80053; 82784; 85025; 86334; 96365; 96366; J1569

== ENCOUNTER 2025-05-25 14:43 | Outpatient (AMB) | payer MEDICARE, SELFPAY ==
--- OUTSIDE RECORDS SUMMARY | 2016-11-23 | XMS_ITS | Encounter Summary ---
Author Organization [facility] Address [address] [place] [address] Phone Support Name Relationship Address Phone Davon Cole Agent [address] [place] [address]
[2025-05-25 14:58] VITALS: BP 120/48; PULSE 67; RESP 18; TEMP 35.9; O2SAT 96; BMI 28.9
--- NOTE | 2025-05-25 14:58 | A.OFFPC_ITS ---
Vital Signs 05/25/25 14:58 Height 5 ft 3 in Weight 163 lb 6 oz BMI 28.9 BP 120/48 L Blood Pressure Location Lt brachial Position Sitting Respiration 18 Pulse 67 Pulse Source Pulse Oximeter Temp 96.6 F L Temp Source Temporal Artery Scan Pulse Oximetry (%) 96 Oxygen Delivery Method Room Air Intake Visit Reasons: [employer] Consulting Solution Manager Required: No Accompanied by: Self / Same As Patient Allergies oxycodone (From OXYCONTIN) Allergy (Mild, Verified 05/25/25 14:59) PRURITUS, severe itching adhesive tape Allergy (Unknown, Verified 05/25/25 14:59) BLISTERS cephalexin (Keflex) Allergy (Unknown, Verified 05/25/25 14:59) hives doxycycline (DOXYCYCLINE) Adverse Reaction (Intermediate, Verified 05/25/25 14:59) STOMACH PAINS Tobacco use date assessed: 05/25/25 Fall risk assessment: No Falls in past year Last assessed Fall Risk: 05/25/25 Dental Screening Dental Screen Date: 05/25/25 Did you have a dental visit in the last 12 months?: Yes Did you have a dental problem in the last 6 months where you did not have access to dental care?: No Was dental information given to patient?: Patient has dentist [facility] Medical History Osteoarthritis of knees, bilateral Abnormal finding on MRI of brain Long-term current use of intravenous immunoglobulin (IVIG) Tinea pedis Urinary incontinence, urge Urinary frequency Urinary urgency TSH elevation Nasal congestion Hospital discharge follow-up Sepsis Pneumonia Acute exacerbation of chronic obstructive pulmonary disease Chronic cough Generalized anxiety disorder Right low back pain Hand pain Dysphagia, pharyngoesophageal phase Costochondritis Dyspnea on exertion COPD (chronic obstructive pulmonary disease) Chronic diarrhea Anxiety Cataract Bladder cancer GERD (gastroesophageal reflux disease) Asthma IBS (irritable bowel syndrome) Hypertension Multiple myeloma Surgical History History of oral surgery History of esophagogastroduodenoscopy (EGD) H/O colonoscopy History of eyelid surgery History of tonsillectomy H/O wrist surgery H/O eye surgery History of arthroscopy of both knees H/O rotator cuff surgery H/O cardiac catheterization Family History Father Pancreatic cancer Diabetes Stroke Mother No problems noted. Sister Diabetes Son No problems noted. Social History Household Members: Spouse Housing: Condominium Are you a primary clinical care coordinator to a significant other at home: No Do you presently have visiting nurse or other home services: Yes ([facility]) Alcohol intake: never Patient Tobacco Use Status: Former Tobacco user Tobacco use type: Cigarette e-Cigarette/Vaping Use: Never Used Second Hand Smoke Exposure: No Advance Directives Date on File: 07/20/23 service: No Current occupational status: retired Cognitive needs: No Hearing needs: No Vision needs: Yes (Glasses) Questionnaire Thrive Questionnaire Date Thrive assessed: 02/03/25 [place]-7 AMB Questionnaire [place]-7 Date [place] - 7 assessed: 02/03/25 Source: Developed by Drs. Ian Moss, Moni Maharaj, Usama Garces and colleagues, with an educational jaylon from [employer]. Physical exam (Primary Care) Vital Signs: Last Vital Signs Temp 96.6 F L 05/25/25 14:58 Pulse 67 05/25/25 14:58 Resp 18 05/25/25 14:58 BP 120/48 L 05/25/25 14:58 Pulse Ox 96 05/25/25 14:58 Oxygen Delivery Method Room Air 05/25/25 14:58 BMI result Body Mass Index 28.9 Tobacco/Smoking Status: Tobacco use Status Tobacco use date assessed 05/25/25 05/25/25 15:07 Patient Tobacco Use Status Former Tobacco user 05/25/25 15:07 Tobacco use type Cigarette 05/25/25 15:07 e-Cigarette/Vaping Use Never Used 05/25/25 15:07 Thrive Assessment: Date of Thrive Assessment Date Thrive assessed 02/03/25 05/25/25 15:07 Const General: alert; No acute distress Eyes Conjunctivae: conjunctivae normal Resp Auscultation: clear to auscultation bilaterally Cardio Rate: regular rate Rhythm: regular rhythm GI Inspection: Yes normal to inspection Extrem General: Yes normal to inspection and No edema Coding Level of Care Code Est Pt Level 4 (09687) Complex EM visit Add On G2211 Diagnoses Schatzki's ring K22.2 Gastroesophageal reflux disease without esophagitis K21.9 Esophagitis presence: without esophagitis Multiple myeloma, remission status unspecified C90.00 Multiple myeloma remission status: unspecified COPD (chronic obstructive pulmonary disease) J44.9 Bilateral carotid artery stenosis I65.23 Essential hypertension I10 Hypertension type: essential hypertension Hypercholesterolemia E78.00 Generalized anxiety disorder F41.1 Assessment & Plan Assessment & Plan (1) Schatzki's ring: Comment: EGD and dilatation May 2025 Code(s): K22.2 - Esophageal obstruction Category: Medical Plan: Patient had an EGD done with dilatation under gastroenterology (2) GERD (gastroesophageal reflux disease): Code(s): K21.9 - Gastro-esophageal reflux disease without esophagitis Category: Medical Qualifiers: Esophagitis presence: without esophagitis Qualified Code(s): K21.9 - Gastro-esophageal reflux disease without esophagitis Plan: Avoid the foods that causes that usually spicy foods, tomato products, juices, coffee, soda and foods that your sensitive to. After eating do not lie down, allow 3-4 hours before in lie down. And keep the head of bed above 30 degrees to avoid the acid from going up. (3) Multiple myeloma: Comment: Most of her complaints, her pertaining to her multiple myeloma. She is relatively happy that the current med ( Velcade ) is working better. Code(s): C90.00 - Multiple myeloma not having achieved remission Category: Medical Qualifiers: Multiple myeloma remission status: unspecified Qualified Code(s): C90.00 - Multiple myeloma not having achieved remission Plan: Continue to have treatment done in [place] as well as follow-up with Hematology- Oncology (4) COPD (chronic obstructive pulmonary disease): Comment: She does have evidence of mild to moderate degree of CHRONIC OBSTRUCTIVE PULMONARY DISEASE, in addition to symptoms of mild bronchial asthma. It is relatively stable and at present she is not using Symbicort, she has not noticed any difference from before. She does have albuterol HFA on hand, NEEDS A NEW SCRIPT . Code(s): J44.9 - Chronic obstructive pulmonary disease, unspecified Category: Medical Plan: Albuterol inhaler (5) Bilateral carotid artery stenosis: Comment: Dr. Rigoberto Bojorquez [phone] CArotid 2020 Q 6 months, December 2022 Code(s): I65.23 - Occlusion and stenosis of bilateral carotid arteries Category: Medical Plan: Control the cholesterol, weight, blood pressure, continue to monitor (6) Hypertension: Code(s): I10 - Essential (primary) hypertension Category: Medical Qualifiers: Hypertension type: essential hypertension Qualified Code(s): I10 - Essential (primary) hypertension Plan: Continue with blood pressure medication. Decrease salt intake and exercise patient on losartan 100 mg once a day amlodipine 5 mg once a day (7) Hypercholesterolemia: Code(s): E78.00 - Pure hypercholesterolemia, unspecified Category: Medical Plan: Avoid fried foods, chicken skin, eggs, butter margarine, pastries and meat. Be it pork or beef they have a lot of cholesterol LDL goal of less than 100 and triglyceride of less than 150. (8) Generalized anxiety disorder: Code(s): F41.1 - Generalized anxiety disorder Category: Medical Plan: Continue with present medication Plan History of Present Illness The patient is an 80-year-old female presenting for a follow-up visit. She has a history of hypertension, GERD, COPD, multiple myeloma, hypercholesterolemia, generalized anxiety disorder, and a history of bladder cancer diagnosed in 2005. Her mammogram is up to date, and she follows up with hematology oncology regularly. The patient is on denosumab every six months and receives IVIG monthly. She had an EGD for Schatzki's ring on May 19, 2025, which included balloon dilatation and biopsy showing no evidence of eosinophilic esophagitis. The patient was seen for a sore throat on May 06, and she also consulted cardiology in March. A cardiac catheterization did not reveal significant coronary artery disease. Recent blood work from May 25 showed normal blood count with mild leukopenia and thrombocytopenia, stable renal function, normal sugar levels, and very mildly elevated liver function tests. Health Maintenance - Mammogram is up to date - Received shingles and tetanus vaccinations - Recommended to receive COVID-19 and influenza vaccinations in June Social History Review of Systems - Cardiovascular: Denies significant coronary artery disease - Respiratory: Reports tightness in chest, denies current tightness - Gastrointestinal: Reports sore throat, denies improvement after endoscopy - Hematologic: Reports mild leukopenia and thrombocytopenia Physical Exam - Throat: Pinkish, no significant abnormalities noted - Posterior pharyngeal wall: Not red Results - Labs: Normal blood count, mild leukopenia, thrombocytopenia, stable renal function, normal sugar levels, mildly elevated liver function tests - Cardiac catheterization: No significant coronary artery disease - EGD with biopsy: No evidence of eosinophilic esophagitis Plan Patient was informed and verbally consented to the use of an ambient scribe for clinic note documentation during this visit. 1. Hypertension The patient is currently on losartan 100 mg once daily and amlodipine 5 mg once daily for hypertension management. Blood pressure monitoring will continue to ensure control. 2. Gastroesophageal Reflux Disease (Gerd) The patient had an EGD with dilatation for Schatzki's ring, and the reflux plan includes continuing treatments in [place] and follow-up with hematology oncology. 3. Chronic Obstructive Pulmonary Disease (Copd) The patient uses an albuterol inhaler as needed for COPD management. 4. Multiple Myeloma The patient is on denosumab every six months and receives IVIG monthly as part of her treatment plan. 5. Hypercholesterolemia The patient's LDL cholesterol goal is less than 100 mg/dL, and triglycerides less than 150 mg/dL, with continuation of current medication regimen. 6. Generalized Anxiety Disorder The patient continues to manage her generalized anxiety disorder, though specific treatment details were not discussed. 7. Leukopenia And Thrombocytopenia The patient has a history of mild leukopenia and thrombocytopenia, which are b eing monitored as part of her routine blood work. Discussion Notes During the visit, we discussed the management of the patient's hypertension, GERD, COPD, and multiple myeloma. We reviewed her recent blood work and the importance of maintaining her current medication regimen. The patient was advised to continue follow-up with her specialists and to receive her vaccinations as scheduled. Patient Instructions - Continue taking losartan and amlodipine as prescribed for blood pressure management. - Use albuterol inhaler as needed for COPD symptoms. - Follow up with hematology oncology and other specialists as scheduled. - Receive COVID-19 and influenza vaccinations in June. - Monitor blood pressure regularly and report any significant changes.
--- OUTSIDE RECORDS SUMMARY | 2025-05-25 17:18 | XMS_ITS | Encounter Summary ---
Author Organization [employer] Address [address] [place] [address] [address] [place] [address] Care Team Providers Care First Coat Sander Name Role Phone e
--- OUTSIDE RECORDS SUMMARY | 2025-05-25 17:18 | XMS_ITS | Encounter Summary ---
Author Organization [facility] Address [address] [place] [id number]
== END 2025-05-25 15:45 | disposition home or self-care (01) ==
LOC: HO.HMCH 14:44
PROVIDERS: PCP Internal Medicine; Visit Provider Internal Medicine
DX: K22.2 Esophageal obstruction (principal); K21.9 Gastro-esophageal reflux disease without esophagitis; C90.00 Multiple myeloma not having achieved remission; J44.9 Chronic obstructive pulmonary disease, unspecified; I65.23 Occlusion and stenosis of bilateral carotid arteries; I10 Essential (primary) hypertension; E78.00 Pure hypercholesterolemia, unspecified; F41.1 Generalized anxiety disorder

== ENCOUNTER → 2025-05-25 14:43 | Outpatient (BNVA) | payer MEDICARE, SELFPAY | PROVIDERS: PCP Internal Medicine; Visit Provider Internal Medicine | DX: K22.2 Esophageal obstruction (principal); K21.9 Gastro-esophageal reflux disease without esophagitis; C90.00 Multiple myeloma not having achieved remission; J44.9 Chronic obstructive pulmonary disease, unspecified; I65.23 Occlusion and stenosis of bilateral carotid arteries; I10 Essential (primary) hypertension; E78.00 Pure hypercholesterolemia, unspecified; F41.1 Generalized anxiety disorder | CPT/HCPCS: 99212 ==

== ENCOUNTER 2025-06-09 09:16 | Outpatient (REF) | payer MEDICARE, SELFPAY ==
--- NOTE | ~2025-06-09 | FL_ITS ---
EXAMINATION: XR BARIUM SWALLOW CLINICAL INFORMATION: Dysphagia. . Schatzki's ring was recently dilated. COMPARISON: Barium swallow 11/07/2021 TECHNIQUE: Barium swallow performed with thick and thin barium, effervescent granules. Patient swallowed a barium tablet. FINDINGS: Normal swallowing reflex. No evidence of laryngeal penetration or aspiration. Mild esophageal dysmotility. There is narrowing of the gastroesophageal junction, just proximal to the diaphragmatic hiatus. The swallowed barium tablet does not pass through this region. The findings are presumably related to the the known clinical diagnosis of Schatzi ring.. On swallowing the barium tablet, there is temporary holdup of the barium at the level of the proximal esophagus, but passes on subsequent swallows of liquid. No mass or mucosal lesions otherwise evident in the esophagus. No significant hiatal hernia is identified. No reflux seen during the course of the procedure FLUOROSCOPY TIME: 1.05 minutes DOSE AREA PRODUCT: 2571 uGy-m2 (microgray-meter squared) FL/FL barium swallow IMPRESSION: 1. Mild esophageal dysmotility. 2. Narrowing of the gastroesophageal junction, consistent with the clinical history of Schatzki's ring. There was holdup of the swallowed barium tablet at this level. 3. There is temporary holdup of the barium tablet the proximal esophagus, which progressed with subsequent swallows of liquid. Electronically signed by: Tate Gil MD 06/09/2025 12:31 PM EDT
--- OUTSIDE RECORDS SUMMARY | 2025-06-09 10:17 | XMS_ITS | Clinical Summary ---
Author Organization [facility] Address [address] [place] [address] Phone Care Team Providers Care Sprinkler Installer Name Role Phone Markos James MD Primary Care Provider [phone] Allergies Active Allergy Reactions Criticality Noted Date [...] age to complete this topic Insurance MEDICARE [facility] Care Teams Sprinkler Installer Relationship Specialty Start Date End Date Markos James MD NPI: [id number] [place] [address] Dr [address] [facility] [place] [address] PCP - General 01/08/24
--- OUTSIDE RECORDS SUMMARY | 2025-06-09 10:17 | XMS_ITS | Encounter Summary ---
Author Organization [employer] Address [address] [facility] 7t [place] [address] Care Team Providers Care Scientific Programmer Name Role Phone Unavailable Primary Care Provider [...]
--- OUTSIDE RECORDS SUMMARY | 2025-06-09 10:17 | XMS_ITS | Clinical Summary ---
Author Organization [employer] Address [address] [facility] [address]t [place] [address] Care Team Providers Care [employer] Caretaker Name Role Phone Unavailable Primary Care Provider [...] Insurance DENTAL - [facility] [place] [id number]
--- OUTSIDE RECORDS SUMMARY | 2025-06-09 10:17 | XMS_ITS | Patient Health Record ---
Author Organization [facility] Michelle christine Peres Address [address] [facility] [place] [address] Care Team Providers Care Social Work Manager Name Role Phone Mandeep Arriaga MD Primary Care Provider UnavailAshvin Griggs Unavailable [phone] Allergies Allergen (clinical drug ingredient) Drug/Non Drug [...] [address] [facility] [place] [address] [id number] Moni Cole Self - patient is the insured [employer] [address] [place] [address] [id number] Moni Cole Self - patient is the [...]
--- OUTSIDE RECORDS SUMMARY | 2025-06-09 10:17 | XMS_ITS | Encounter Summary ---
Author Organization [employer] Address [address] [facility] [address] [place] [address] Care Team Providers Care Biometrics Consultant Name Role Phone Unavailable Primary Care Provider Unavailabl e Reason for Visit * Reason Onset Date Comments appt 08/13/2023 Encounter Details Date Type Department Care Team (Late st Contact Info) Description 08/13/2023 Telephone [facility] [address] [place] [address] Llaa Phillips DDS appt Social History Tobacco Use [...]
--- OUTSIDE RECORDS SUMMARY | 2025-06-09 10:17 | XMS_ITS | Encounter Summary ---
Author Organization [facility] Address [address] [place] [address] Care Team Providers Care Cigarette Machines Mechanic Name Role Phone Markos James MD Primary Care Provider [phone] Encounter Details Date Type Department Care Team (Late st Contact Info) Description 09/25/2024 Lab Requisition [facility] Lab [address] [facility] [place] [address] Glo Espinoza PA [address] [place], [place] [id number] Personal history of malignant neoplasm of bladder [...] AM EST) Final Diagnosis A. Urine, Voided, ([id number]): Negative for high grade urothelial carcinoma. Results of UroVysion fluorescence in situ hybridization (FISH) testing: CEP3: Normal CEP7: Normal CEP17: Normal LSI 9p21: Normal Interpretation: Normal profile Controls stained appropriately. Note: The results are intended as a screening device and should be interpreted in association with other clinical and pathological findings. 10/09/2024 11:50 AM EST [facility] Clinical Information History of bladder neoplasm (malignant) Z85.51 Urine Cytology/FISH (now) 10/09/2024 11:50 AM [facility] Gross Description A. Urine, Voided, ([id number]): Received one ThinPrep slide for cytology screen and one ThinPrep slide for UroVysion FISH 10/09/2024 11:50 AM [facility] Disclaimer Unless otherwise specified, all tissue is 10% NB formalin fixed and paraffin embedded. Technical pathology services provided by [facility] at [address] [place] [address] [address] [address] (CLIA #[id number]/Nara Deal MD, Director Of Casino) 10/09/2024 11:50 AM [facility] Tissue Urine specimen from urethra / Unknown 09/19/2024 09/25/2024 8:14 AM EST us [facility] PATHOLOGY ORDERABLES Final Result [facility] [address] [place] [address], documented in this encounter Visit Diagnoses Diagnosis Personal history of malignant neoplasm of bladder documented in this encounter Care Teams Cigarette Machines Mechanic Relationship Specialty Start Date End Date Markos James MD [address] [place] [address] Dr [address] [facility] [address] PCP - General 01/08/24 documented as of this encounter
--- OUTSIDE RECORDS SUMMARY | 2025-06-09 10:17 | XMS_ITS | Encounter Summary ---
Author Organization [employer] Address [address] [facility] [address] [place] [address] Care Team Providers Care Interstate Bus Driver Name Role Phone Unavailable Primary Care Provider [...]
== END 2025-06-09 09:17 | disposition home or self-care (01) ==
LOC: HO.XRAY 09:16
PROVIDERS: PCP Internal Medicine; Visit Provider Internal Medicine Gastroenterology
DX: R13.10 Dysphagia, unspecified (principal); K22.2 Esophageal obstruction
CPT/HCPCS: 74220

== ENCOUNTER → 2025-06-09 09:18 | Outpatient (BNV) | payer MEDICARE, SELFPAY | PROVIDERS: PCP Internal Medicine; Visit Provider Radiology Diagnostic Ultrasound | DX: K22.2 Esophageal obstruction (principal); K22.4 Dyskinesia of esophagus | CPT/HCPCS: 74221 ==

== ENCOUNTER 2025-06-24 11:17 | Outpatient (AMB) | payer MEDICARE, SELFPAY ==
--- OUTSIDE RECORDS SUMMARY | 2015-10-28 01:00 | XMS_ITS | Encounter Summary ---
Author Organization [facility] Address [address] [employer] [facility] [address] [place] [address] Phone Care Team Providers Care Travograph Operator Name Role Phone Unavailable Primary Care Provider Unavailabl e Reason for Visit * MRI/CAT Scan - Closed Specialty Diagnoses / Procedures Referred By Yasir t Referred To Contact Procedures CT Chest Outside (No Interpretation) Van Dupont MD [address] [place] [address] Phone: tel: fax: mailto:[email or web address] du Referral ID Status Reason Start Date Expiration Date Visits Re quested Visits Authorized [id number] Closed 01/24/2017 01/24/2018 1 1 Encounter Details Date Type Department Care Team (Late st Contact Info) Description 10/28/2015 Hospital Encounter [facility] [address] [place] [address] Van Dupont MD [address] [place] [address] [email or web address] Social History Tobacco Use Types Packs/Day [...] 10/31/2023 4:32 PM Shyanne Owens RN * [place] Suicide Severity Rating Scale (Screener/Recent Self-Report) Question Answer Date of Assessment Author 1. Wish to be (Past 1 Month) No 10/31/2023 4:32 PM Shyanne Owens RN 2. Non-Specific Active Suicidal Thoughts (Past 1 Month) No 10/31/2023 4:32 PM Shyanne Owens RN 6. Suicidal Behavior (Lifetime) No 10/31/2023 4:32 PM Shyanne Owens RN documented as of this encounter Plan of Treatment Not on file documented as of this encounter Goals Goal Patient Goal Type Associated Problems Recent Progress Patient-Stated? Author Acute Care Plan Acute Care Plan No Carolina Jackson RN Note: Cellular therapy/ Immune Effector Cell patient. Patient received cellular therapy product Amol-reese on 11/01/23 Page the on-call Immune Effector Cell Attending via www.[employer] Login [facility] Page immediately if patient presents within the [...] team evaluation. Patients should be admitted to [place] [address] to the Immune Effector Cell Service. documented as of this encounter Procedures Procedure Name Priority Date/Time Associated Diagnosis Comments CT CHEST OUTSIDE (NO INTERPRETATION) Routine 10/28/2015 12:00 AM EST documented in this encounter Results * CT Chest Outside (No Interpretation) (10/28/2015 12:00 AM EST) Narrative [facility] IMG INTERFACES - 01/24/2017 7:28 AM EDT This study is for PACS storage only and not for interpretation. us Van Dupont MD IMG OUTSIDE IMAGING W/OUT INTERP RETATION Final Result [facility] IMG INTERFACES documented in this encounter Visit [...] It is not the complete legal health record.[facility]
--- OUTSIDE RECORDS SUMMARY | 2015-12-11 | XMS_ITS | Encounter Summary ---
Author Organization [facility] Address [address] [employer] [facility] [address] [place] [address] Phone Care Team Providers Care Human Service Coordinator Name Role Phone Unavailable Primary Care Provider Unavailabl e Reason for Visit * MRI/CAT Scan - Closed Specialty Diagnoses / Procedures Referred By Yasir t Referred To Contact Procedures MRI Outside Upper Extremity (No Interpretation) Van Dupont MD [address] [place] [address] Phone: tel: fax: mailto:[email or web address] Referral ID Status Reason Start Date Expiration Date Visits Re quested Visits Authorized [id number] Closed 02/06/2017 02/06/2018 1 1 Encounter Details Date Type Department Care Team (Late st Contact Info) Description 12/11/2015 Hospital Encounter [facility] [address] [place] [address] Van Dupont MD [address] [place] [address] [email or web address] u Social History Tobacco [...] 10/31/2023 4:32 PM Shyanne Owens RN * [place] Suicide Severity Rating Scale (Screener/Recent Self-Report) Question [...] Patient received cellular therapy product Amol-reese on 2/29/24 Page the on-call Immune Effector Cell Attending via www.Fl[employer] Login [facility] Page immediately if patient presents [...] team evaluation. Patients should be admitted to [place] [address] to the Immune Effector Cell Service. documented as of this encounter Procedures Procedure Name Priority Date/Time Associated Diagnosis Comments MRI UPPER EXTREMITY OUTSIDE (NO INTERPRETATION) Routine 12/11/2015 12:00 AM EDT documented in this encounter Results * MRI Outside Upper Extremity (No Interpretation) (12/11/2015 12:00 AM EDT) Narrative [facility] IMG INTERFACES - 02/06/2017 4:03 PM EDT This study is for PACS storage only and not for interpretation. us Van Dupont MD IMG OUTSIDE IMAGING W/OUT INTERP RETATION Final Result [facility] IMG INTERFACES documented in this encounter Visit Diagnoses Not on filedocumented in this encounter Additional Health Concerns Infection Onset Date Last Indicated Resolved Time CoV-Risk Comment:Per note documentation 10/31/2023 10/31/2023 4 2:50 PM EST CoV-Risk Comment:Per note documentation 11/07/2023 11/07/2023 9:26 PM EST CoV-Risk Comment:Per note documentation 11/20/2023 11/21/2023 3:00 PM EDT Metapneumovirus 11/21/2023 11/21/2023 11/28/2023 1 :22 AM EDT documented as of this encounter Additional Source Comments The information contained in this document represents components of the legal health record. It is not the complete legal health record.[facility]
--- OUTSIDE RECORDS SUMMARY | 2016-11-23 | XMS_ITS | Encounter Summary ---
Author Organization [facility] Address [address] [employer] [facility] [address] [place] [address] Phone Care Team Providers Care Retina Subspecialist Name Role Phone Unavailable Primary Care Provider Unavailabl e Reason for Visit * MRI/CAT Scan - Closed Specialty Diagnoses / Procedures Referred By Yasir t Referred To Contact Procedures MRI Outside Upper Extremity (No Interpretation) Van Dupont MD [address] [place] [address] Phone: tel: fax: mailto:[email or web address]. du Referral ID Status Reason Start Date Expiration Date Visits Re quested Visits Authorized [id number] Closed 02/06/2017 02/06/2018 1 1 Encounter Details Date Type Department Care Team (Late st Contact Info) Description 11/23/2016 Hospital Encounter [facility] [address] [place] [address] Van Dupont MD [address] [place] [address] [email or web address] u Social History Tobacco Use Types Packs/Day [...] 10/31/2023 4:32 PM Shyanne Owens RN * [place] Suicide Severity Rating Scale (Screener/Recent Self-Report) Question [...] the on-call Immune Effector Cell Attending via www.NewsWhip Login [facility] Page immediately if patient presents [...] team evaluation. Patients should be admitted to [place] [address] to the Immune Effector Cell Service. documented as of this encounter Procedures Procedure Name Priority Date/Time Associated Diagnosis Comments MRI UPPER EXTREMITY OUTSIDE (NO INTERPRETATION) Routine 11/23/2016 12:00 AM EDT documented in this encounter Results * MRI Outside Upper Extremity (No Interpretation) (11/23/2016 12:00 AM EDT) Narrative [facility] - 02/06/2017 2:09 PM EDT This study is for PACS storage only and not for interpretation. us Van Dupont MD IMG OUTSIDE IMAGING W/OUT INTERP RETATION Final Result [facility] documented in this encounter Visit [...] It is not the complete legal health record.[facility]
--- OUTSIDE RECORDS SUMMARY | 2018-01-09 | XMS_ITS | Encounter Summary ---
Author Organization [facility] Address [address] [facility] [address] [place] [address] Phone Care Team Providers Care Php Magento Developer Name Role Phone Unavailable Primary Care Provider Unavailabl e Reason for Visit * MRI/CAT Scan - Closed Specialty Diagnoses / Procedures Referred By Yasir t Referred To Contact Procedures MRI Spine (Bone) Outside (No Interpretation) Van Dupont MD [address] [place] [address] Phone: tel: fax: mailto:[email or web address] du Referral ID Status Reason Start Date Expiration Date Visits Re quested Visits Authorized [id number] Closed 01/21/2018 01/21/2019 1 1 Encounter Details Date Type Department Care Team (Late st Contact Info) Description 01/09/2018 Hospital Encounter [facility] General Imaging [address] [place] [address] Van Dupont MD [address] [place] [address] [email or web address] u Social History Tobacco Use [...] 10/31/2023 4:32 PM Shyanne Owens RN * [place] Suicide Severity Rating Scale (Screener/Recent Self-Report) Question [...] the on-call Immune Effector Cell Attending via www.[employer] Login [facility] Page immediately if patient presents [...] team evaluation. Patients should be admitted to [place] [address] to the Immune Effector Cell Service. documented as of this encounter Procedures Procedure Name Priority Date/Time Associated Diagnosis Comments MRI SPINE MUSCULOSKELETAL FOCUS OUTSIDE (NO INTERPRETATION) Routine 01/09/2018 12:00 AM EDT documented in this encounter Results * MRI Spine (Bone) Outside (No Interpretation) (01/09/2018 12:00 AM EDT) Narrative [facility] [place] - 01/21/2018 2:08 PM EDT This study is for PACS storage only and not for interpretation. us Van Dupont MD IMG OUTSIDE IMAGING W/OUT INTERP RETATION Final Result [facility] documented in this encounter Visit [...] It is not the complete legal health record.[facility]
--- OUTSIDE RECORDS SUMMARY | 2018-01-10 | XMS_ITS | Encounter Summary ---
Author Organization [facility] Address [address] [place] [address] Phone Care Team Providers Care Note Teller Name Role Phone Unavailable Primary Care Provider Unavailabl e Encounter Details Date Type Department Care Team (Late st Contact Info) Description 01/10/2018 Hospital Encounter [facility] General Imaging [address] [place] [address] Van Dupont MD [address] [place] [address] [email or web address] u Social History Tobacco Use Types Packs/Day [...] 10/31/2023 4:32 PM Shyanne Owens RN * [place] Suicide Severity Rating Scale (Screener/Recent Self-Report) Question [...] the on-call Immune Effector Cell Attending via www.[employer] Login [facility] Page immediately if patient presents within the [...] team evaluation. Patients should be admitted to [place] [address] to the Immune Effector Cell Service. documented as of this encounter Procedures Procedure Name Priority Date/Time Associated Diagnosis Comments XR UPPER EXTREMITY OUTSIDE (NO INTERPRETATION) Routine 01/10/2018 12:00 AM EDT documented in this encounter Results * XR Upper Extremity Outside (No Interpretation) (01/10/2018 12:00 AM EDT) Narrative [facility] IMG INTERFACES - 01/21/2018 2:05 PM EDT This study is for PACS storage only and not for interpretation. us Van Dupont MD IMG OUTSIDE IMAGING W/OUT INTERP RETATION Final Result [facility] IMG INTERFACES documented in this encounter Visit Diagnoses Not on filedocumented in this encounter Additional Health Concerns Infection Onset Date Last Indicated Resolved Time CoV-Risk Comment:Per note documentation 10/31/2023 10/31/2023 2:50 PM EST CoV-Risk Comment:Per note documentation 11/07/2023 11/07/2023 4 9:26 PM EST CoV-Risk Comment:Per note documentation 11/20/2023 11/21/2023 4 3:00 PM EDT Metapneumovirus 11/21/2023 11/21/2023 11/28/2023 1 :22 AM EDT documented as of this encounter Additional Source Comments The information contained in this document represents components of the legal health record. It is not the complete legal health record.[facility]
--- OUTSIDE RECORDS SUMMARY | 2018-01-10 00:15 | XMS_ITS | Encounter Summary ---
Author Organization [facility] Address [address] [facility] [address] [place] [address] Phone Care Team Providers Care Acds Block 1 Operator Name Role Phone Unavailable Primary Care Provider Unavailabl e Encounter Details Date Type Department Care Team (Late st Contact Info) Description 01/10/2018 12:15 AM EDT Hospital Encounter [facility] [address] [place] [address] Van Dupont MD [address] [place] [address] [email or web address] [place] [place] Social History Tobacco Use Types [...] 10/31/2023 4:32 PM Shyanne Owens RN * [place] Suicide Severity Rating Scale (Screener/Recent Self-Report) Question [...] the on-call Immune Effector Cell Attending via www.[employer] Login [facility] Page immediately if patient presents [...] team evaluation. Patients should be admitted to [place] [address] to the Immune Effector Cell Service. documented as of this encounter Procedures Procedure Name Priority Date/Time Associated Diagnosis Comments XR CHEST OUTSIDE (NO INTERPRETATION) Routine 01/10/2018 12:15 AM EDT documented in this encounter Results * XR Chest Outside (No Interpretation) (01/10/2018 12:15 AM EDT) Narrative [facility] [place] - 01/21/2018 2:06 PM EDT This study is for PACS storage only and not for interpretation. us Van Dupont MD IMG OUTSIDE IMAGING W/OUT INTERP RETATION Final Result [facility] [place] documented in this [...] It is not the complete legal health record.[facility]
[2025-06-24 11:33] VITALS: BP 112/64; PULSE 63; O2SAT 96; BMI 29.3
--- NOTE | 2025-06-24 11:33 | MHC.OFFVIS ---
Vital Signs 06/24/25 11:33 Height 5 ft 3 in Weight 165 lb 5.547 oz BMI 29.3 BP 112/64 Blood Pressure Location Lt brachial Position Sitting Pulse 63 Pulse Source Pulse Oximeter Pulse Oximetry (%) 96 Oxygen Delivery Method Room Air Intake Visit Reasons: COPD Intake Note: pt is here for follow up and states she is states she does have shortness of breath with walking, heavy breathing with little exertion, arm issue. Isotope Technician Required: No Cryptographer: Cryptographer offered & declined Allergies oxycodone (From OXYCONTIN) Allergy (Mild, Verified 06/24/25 13:25) PRURITUS, severe itching adhesive tape Allergy (Unknown, Verified 06/24/25 13:25) BLISTERS cephalexin (Keflex) Allergy (Unknown, Verified 06/24/25 13:25) hives doxycycline (DOXYCYCLINE) Adverse Reaction (Intermediate, Verified 06/24/25 13:25) STOMACH PAINS Medication List - Last Reconciled 06/24/25 by Cyndy Flores MD acetaminophen (Tylenol Extra Strength) 1,000 mg PO Q6H PRN albuterol sulfate 90 mcg/actuation (Ventolin HFA) 2 puffs inhalation Q4-6H PRN 30 days amlodipine 5 mg PO DAILY ascorbate calcium (vitamin C) 500 mg PO DAILY atorvastatin 20 mg PO DAILY buprenorphine 5 mcg/hour (Butrans) 1 patch transdermal Q7D buprenorphine 5 mcg/hour (Butrans) 1 patch transdermal Q7D taydbctwip-gnixghogbdxtb-npft 50-325-40 mg 1 tab PO Q6H PRN cholecalciferol (vitamin D3) 50 mcg PO DAILY desvenlafaxine succinate ER 25 mg PO DAILY diphenoxylate-atropine 2.5-0.025 mg (Lomotil) 1 tab PO BEDTIME PRN gabapentin 100 mg PO TID 90 days uiaxrtjh-xji-vzyfe-bpf701-abtg 500-500-66.7 mg (Aqjxiiarykc-Kdokvwfdzcm-UTJ (with antiox)) 500 tabs PO DAILY lorazepam 0.5 mg PO BID PRN losartan 100 mg PO DAILY 90 days Magic Mouthwash Diphen/Lido/Antacid 1:1:1 10 mL PO TIDWMEAL 10 days magnesium 250 mg PO DAILY mecobalamin (vitamin B12) (B12 Active) 1,000 mcg PO DAILY melatonin 3 mg PO BEDTIME PRN meloxicam 15 mg PO DAILY metoprolol succinate ER 50 mg PO DAILY 90 days multivitamin 1 tab PO DAILY [probiotic PO] triamcinolone acetonide (Nasacort Allergy) 1 spray intranasal DAILY Do you need a note to return to daycare/school/sports/work: No HPI HPI COPD: Details: KRISTI, 80 YEARS OLD FEMALE, COMES FOR PULMONARY FOLLOW-UP AFTER 6 MONTHS. SHE HAS BEEN DOING VERY WELL AND HAS HAD NO ACUTE EXACERBATION OF BRONCHIAL ASTHMA/COPD WHICH IS MILD ANYWAY. SHE DID NOT HAVE TO USE ALBUTEROL MORE THAN A FEW TIMES. SHE EXPRESSED MULTIPLE COMPLAINTS MAINLY RELATING TO HER MUSCLES AND JOINTS, AND GENERAL FATIGUE ETC.. ALSO MENTIONS THAT SHE HAD HER 2ND COVID VACCINE INJECTION AND AFTER THAT HAD A FLARE UP OF HER MUSCULOSKELETAL PAINS. SHE ALWAYS HAVE SOME DISCOMFORT IN THE ANTERIOR CHEST PROBABLY RELATED TO MUSCULOSKELETAL ISSUES. [facility] Medical History Osteoarthritis of knees, bilateral Abnormal finding on MRI of brain Long-term current use of intravenous immunoglobulin (IVIG) Tinea pedis Urinary incontinence, urge Urinary frequency Urinary urgency TSH elevation Nasal congestion Hospital discharge follow-up Sepsis Pneumonia Acute exacerbation of chronic obstructive pulmonary disease Chronic cough Generalized anxiety disorder Right low back pain Hand pain Dysphagia, pharyngoesophageal phase Costochondritis Dyspnea on exertion COPD (chronic obstructive pulmonary disease) Chronic diarrhea Anxiety Cataract Bladder cancer GERD (gastroesophageal reflux disease) Asthma IBS (irritable bowel syndrome) Hypertension Multiple myeloma Surgical History History of oral surgery History of esophagogastroduodenoscopy (EGD) H/O colonoscopy History of eyelid surgery History of tonsillectomy H/O wrist surgery H/O eye surgery History of arthroscopy of both knees H/O rotator cuff surgery H/O cardiac catheterization Family History Father Pancreatic cancer Diabetes Stroke Mother No problems noted. Sister Diabetes Son No problems noted. Social History Household Members: Spouse Housing: Condominium Are you a primary manager respiratory care to a significant other at home: No Do you presently have visiting nurse or other home services: Yes ([facility]) Alcohol intake: never Patient Tobacco Use Status: Former Tobacco user Tobacco use type: Cigarette e-Cigarette/Vaping Use: Never Used Second Hand Smoke Exposure: No Advance Directives Date on File: 07/20/23 service: No Current occupational status: retired Cognitive needs: No Hearing needs: No Vision needs: Yes (Glasses) Review of Systems Const All systems reviewed & are unremarkable except as noted in HPI and below Eyes Reports no additional complaints ENT Reports no additional complaints, Denies nasal congestion and Denies nasal discharge Card Reports chest pain (Intermittent nonspecific), Denies irregular heart rhythm and Denies leg edema Resp Reports as per HPI and Reports cough GI Reports heartburn (Controlled with Protonix) Reports no additional complaints Musc Reports no additional complaints Skin/Breast Reports system reviewed and no additional complaints, except as documented Neuro Reports no additional complaints Psych Reports anxiety Physical Exam Vital Signs: Last Vital Signs Pulse 63 06/24/25 11:33 BP 112/64 06/24/25 11:33 Pulse Ox 96 06/24/25 11:33 Oxygen Delivery Method Room Air 06/24/25 11:33 BMI result Body Mass Index 29.3 Const General: no acute distress, alert and awake Orientation/consciousness: patient oriented x3 HEENT Head: Yes normal to inspection General nose exam: No nasal polyps present and No nasal discharge present Face and sinus: Yes sinuses nontender Mouth: oropharynx normal Throat: Yes posterior oropharynx normal Eyes General: appearance normal, both eyes and all related structures Neck Neck: Yes normal visual inspection, Yes no lymphadenopathy, Yes trachea midline and Yes no JVD Thyroid: Thyroid normal Chest Chest palpation & inspection: normal inspection of the chest, normal palpation of entire chest wall and no tenderness Resp Other: Percussion note resonant, breath sounds are distant, but no wheezes rhonchi or crepitations are heard Cardio Palpation: normal PMI Rate: regular rate Rhythm: regular rhythm Heart sounds: no gallops and no murmurs GI Palpation (GI): Soft to palpation, nontender, No hepatosplenomegaly present and no masses Auscultation: normal bowel sounds Back/Spine/Pelvis Thoracic/Lumbar Spine: thoracic and lumbar spine normal to inspection Skin General skin exam: no rashes or lesions noted Neuro General: patient oriented x3 and no focal motor deficits Cranial nerves: Yes CN's II-XII intact bilaterally Extrem General: Yes normal to inspection, Yes no clubbing, cyanosis or edema and Yes no calf tenderness Psych Appearance: grossly normal and well kempt Speech and movement: Normal speech and movement present Assessment & Plan Assessment & Plan (1) COPD (chronic obstructive pulmonary disease): Comment: She does have evidence of mild to moderate degree of CHRONIC OBSTRUCTIVE PULMONARY DISEASE, in addition to symptoms of mild bronchial asthma. It is relatively stable and at present. She is not using Symbicort, she has not noticed any difference from before. She does have albuterol HFA on hand, but does not need to use it too often. Code(s): J44.9 - Chronic obstructive pulmonary disease, unspecified Category: Medical Plan: Albuterol HFA 2 puffs Q 6 hours p.r.n. . (2) Dyspnea on exertion: Comment: Mild to moderate, multifactorial, currently she has somewhat increased episodes of shortness of breath. She uses O2 for short periods p.r.n., ( mainly for a placebo effect ) and sometimes uses albuterol if there is some tightness in the chest Code(s): R06.00 - Dyspnea, unspecified Category: Medical Plan: I did tell her that it OK to use O2 2 L/minute for 15-20 minutes at a time if she feels tired short of breath. And also use albuterol 2 puffs Q 6 hours p.r.n., only if there is some wheezing, Coding Level of Care Code Est Pt Level 3 (80581) Diagnoses COPD (chronic obstructive pulmonary disease) J44.9 Dyspnea on exertion R06.00
--- OUTSIDE RECORDS SUMMARY | 2025-06-24 15:00 | XMS_ITS | Encounter Summary ---
Author Organization [employer] Address [address] [facility] 7t [place] [address] Care Team Providers Care Manager Personal Name Role Phone Unavailable Primary Care Provider Unavailabl e Reason for Visit * Reason Comments Consult Encounter Details Date Type Department Care Team ([facility] st Contact Info) Description 06/24/2025 3:00 PM EDT Office Visit [facility] ADULT D[facility]AL [address] [place] [address] Tyrone Taylor, OTTO [address] [place] [address] Arrived Social History Tobacco Use Types Packs/Day Years Used Date Smoking Tobacco: Never Alcohol Use Standard Drinks/Week Comments Defer 0 [...]
--- OUTSIDE RECORDS SUMMARY | 2025-06-24 15:24 | XMS_ITS | Encounter Summary ---
Author Organization [facility] Address [address] [employer] [address] [address] Phone Care Team Providers Care Product Developer Name Role Phone Debra Muniz MD Unavailable Mohinder Fan MD Unavailable [phone] Van Dupont MD Unavailable Markos James MD Primary Care Provider [phone] Arsh Mata MD Unavailable Eufemia Caro RN Unavailable [email or web address] [email or web address] Encounter Details Date Type Department Care Team (Late st Contact Info) Description 05/12/2024 Procedure Pass [address] [place] [address] Social History Tobacco Use Types Packs/Day Years [...] the on-call Immune Effector Cell Attending via www.[employer] Login [facility] Page immediately if patient presents [...] Patients should be admitted to [place] [address] to the Immune Effector Cell Service. documented as of this encounter Visit Diagnoses Not on filedocumented in this encounter Care Teams Product Developer Relationship Specialty Start Date End Date Markos James MD [address] [place] [address] [place] [phone] PCP - General Internal Medicine 12/07/20 Debra Muniz MD [address] [place] [address] Medical Oncology 05/27/18 Mohinder Fan MD [address] [place] [address] Consulting Provider Geriatric Psychiatry 05/27/18 Van Dupont MD [address] [facility] [address] [place] [address] [email or web address] Primary Oncologist Medical Oncology 10/14/18 Arsh Mata MD [address] [facility] [address] [place] [address] [email or web address] Treatment Team Hematology and Oncology 10/16/23 Eufemia Caro, NIKOLAS [address] [place] [address] [email or web address] Associate Infusion Nurse 10/16/23 documented as of this encounter Additional Source Comments The information contained in this document represents components of the legal health record. It is not the complete legal health record.[facility]
--- OUTSIDE RECORDS SUMMARY | 2025-06-24 15:24 | XMS_ITS | Encounter Summary ---
Author Organization [facility] Address [address] [facility] [address] [place] [address] Phone Care Team Providers Care Bilingual Sales Consultant Name Role Phone Debra Muniz MD Unavailable [phone] Mohinder Fan MD Unavailable [phone] Van Dupont MD Unavailable Markos James MD Primary Care Provider Arsh Mata MD Unavailable [phone] Eufemia Caro RN Unavailable [email or web address] Reason for Visit * Reason Comments Medication Refill Encounter Details Date Type Department Care Team ([facility] st Contact Info) Description 12/12/2024 Refill [facility] Psychiatry Oncology [address] [place] [address], 10th Floor, [address] [place] [address] Sri Gandhi MD [address] [place] [address] [address] [place] [address] [email or web address] Medication Refill Social History Tobacco Use Types [...] the on-call Immune Effector Cell Attending via www.[employer] Login [facility] Page immediately if patient presents [...] team evaluation. Patients should be admitted to [place] [address] to the Immune Effector Cell Service. documented as of this encounter Visit Diagnoses Diagnosis Posttraumatic stress disorder documented in this encounter Care Teams Bilingual Sales Consultant Relationship Specialty Start Date End Date Jacob, Markos Awan MD [address] [facility] [address] [place] [phone] PCP - General Internal Medicine 12/07/20 Debra Muniz MD [address] [place] [address] Medical Oncology 05/27/18 Moihnder Fan MD [address] [place] [address] Consulting Provider Geriatric Psychiatry 05/27/18 Van Dupont MD [address] [place] [address] [email or web address] Primary Oncologist Medical Oncology 10/14/18 Arsh Mata MD [address] [place] [address] [email or web address] Treatment Team Hematology and Oncology 10/16/23 Eufemia Crao RN 55 [place] [address] [email or web address] Associate Infusion Nurse 10/16/23 documented as of this encounter Additional Source Comments The information contained in this document represents components of the legal health record. It is not the complete legal health record.[facility]
--- OUTSIDE RECORDS SUMMARY | 2025-06-24 15:25 | XMS_ITS | Encounter Summary ---
Author Organization [facility] Address [address] [facility] [address] [place] [address] Phone Care Team Providers Care Produce Department Manager Name Role Phone Debra Muniz MD Unavailable [phone] Mohinder Fan MD Unavailable [phone] Van Dupont MD Unavailable Markos James MD Primary Care Provider Arsh Mata MD Unavailable Eufemia Caro RN Unavailable [email or web address] Encounter Details Date Type Department Care Team (Late st Contact Info) Description 04/11/2024 Procedure Pass [facility] - MRI [address] [facility], 6th [place] [address] Social History Tobacco Use Types Packs/Day Years [...] the on-call Immune Effector Cell Attending via www.[employer] Login [facility] Page immediately if patient presents [...] team evaluation. Patients should be admitted to [place] [address] to the Immune Effector Cell Service. documented as of this encounter Visit Diagnoses Not on filedocumented in this encounter Care Teams Produce Department Manager Relationship Specialty Start Date End Date Markos James MD [address] [place] [address] [address] [place] [address] PCP - General Internal Medicine 12/07/20 Debra Muniz MD [address] [place] [address] Medical Oncology 05/27/18 Mohinder Fan MD [address] [place] [address] Consulting Provider Geriatric Psychiatry 05/27/18 Van Dupont MD [address] [facility] [address] [place] [address] [email or web address] Primary Oncologist Medical Oncology 10/14/18 Arsh Mata MD [address] [facility] [address] [place] [address] [email or web address] Treatment Team Hematology and Oncology 10/16/23 Eufemia Caro, NIKOLAS [address] [place] [address] [email or web address] Associate Infusion Nurse 10/16/23 documented as of this encounter Additional Source Comments The information contained in this document represents components of the legal health record. It is not the complete legal health record.[facility]
--- OUTSIDE RECORDS SUMMARY | 2025-06-24 15:25 | XMS_ITS | Encounter Summary ---
Author Organization [facility] Address [address] [facility] [address] [place] [address] Phone Care Team Providers Care Bunch Trimmer Mold Name Role Phone Debra Muniz MD Unavailable [phone] Mohinder Fan MD Unavailable [phone] Van Dupont MD Unavailable Markos James MD Primary Care Provider Arsh Mata MD Unavailable [phone] Eufemia Caro RN Unavailable [email or web address] Encounter Details Date Type Department Care Team (Late st Contact Info) Description 09/13/2017 Procedure Pass [facility] [address] [place] [address] Social History Tobacco Use Types Packs/Day Years [...] documented as of this encounter Care Teams Bunch Trimmer Mold Relationship Specialty Start Date End Date Jacob, Markos Awan MD [address] [place] [phone] PCP - General Internal Medicine 12/07/20 Debra Muniz MD [address] [place] [address] Medical Oncology 05/27/18 Mohinder Fan MD [address] [place] [address] Consulting Provider Geriatric Psychiatry 05/27/18 Van Dupont MD [address] [facility] [address] [place] [address] [email or web address] Primary Oncologist Medical Oncology 10/14/18 Arsh Mata MD [address] [facility] [address] [place] [address] [email or web address] Treatment Team Hematology and Oncology 10/16/23 Eufemia Caro, NIKOLAS [address] [place] [address] [email or web address] Associate Infusion Nurse 10/16/23 documented as of this encounter Additional Source Comments The information contained in this document represents components of the legal health record. It is not the complete legal health record.[facility]
--- OUTSIDE RECORDS SUMMARY | 2025-06-24 15:25 | XMS_ITS | Encounter Summary ---
Author Organization [facility] Address [address] [employer] [place] [address] [place] [address] Phone Care Team Providers Care Nutrition And Dietetics Instructor Name Role Phone Debra Muniz MD Unavailable Mohinder Fan MD Unavailable [phone] Van Dupont MD Unavailable Markos James MD Primary Care Provider Arsh Mata MD Unavailable [phone] Eufemia Caro RN Unavailable [email or web address] [email or web address] Encounter Details Date Type Department Care Team (Late st Contact Info) Description 02/06/2017 Procedure Pass [facility] [address] [place] [address] Social History Tobacco Use Types Packs/Day Years [...] documented as of this encounter Care Teams Nutrition And Dietetics Instructor Relationship Specialty Start Date End Date Po, Markos Awan MD [address] [facility] [address] [facility] [address] [place] [phone] PCP - General Internal Medicine 12/07/20 Debra Muniz MD [address] [place] [address] Medical Oncology 05/27/18 Mohinder Fan MD [address] [place] [address] Consulting Provider Geriatric Psychiatry 05/27/18 Van Dupont MD [address] [facility] [address] [place] [address] [email or web address] Primary Oncologist Medical Oncology 10/14/18 Arsh Mata MD [address] [facility] [address] [place] [address] [email or web address] Treatment Team Hematology and Oncology 10/16/23 Eufemia Caro, NIKOLAS [address] [place] [address] [email or web address] Associate Infusion Nurse 10/16/23 documented as of this encounter Additional Source Comments The information contained in this document represents components of the legal health record. It is not the complete legal health record.[facility]
--- OUTSIDE RECORDS SUMMARY | 2025-06-24 15:25 | XMS_ITS | Encounter Summary ---
Author Organization [employer] Address [address] [facility] 7t [place] [address] Care Team Providers Care College [employer] Dean Name Role Phone Unavailable Primary Care Provider Unavailabl e Reason for Visit * Reason Onset Date Comments appt 08/13/2023 Encounter Details Date Type Department Care Team (Late st Contact Info) Description 08/13/2023 Telephone [facility]ULT D[facility] [address] [place] [address] Lala Phillips DDS appt Social History Tobacco [...]
--- OUTSIDE RECORDS SUMMARY | 2025-06-24 15:25 | XMS_ITS | Encounter Summary ---
Author Organization [facility] Address [address] [facility] [address] [place] [address] Phone Care Team Providers Care Director Radiation Oncology Name Role Phone Debra Muniz MD Unavailable Mohinder Fan MD Unavailable [phone] Van Dupont MD Unavailable Markos James MD Primary Care Provider Arsh Mata MD Unavailable [phone] Eufemia Caro RN Unavailable [email or web address] [email or web address] Encounter Details Date Type Department Care Team (Late st Contact Info) Description 01/24/2017 Procedure Pass [facility] [address] [place] [address] Social History Tobacco Use Types Packs/Day Years [...] as of this encounter Care Teams Director Radiation Oncology Relationship Specialty Start Date End Date Po, Markos Awan MD [address] [place] [phone] PCP - General Internal Medicine 12/07/20 Debra Muniz MD [address] [place] [address] Medical Oncology 05/27/18 Mohinder Fan MD [address] [place] [address] Consulting Provider Geriatric Psychiatry 05/27/18 Van Dupont MD [address] [facility] [address] [place] [address] [email or web address] Primary Oncologist Medical Oncology 10/14/18 Arsh Mata MD [address] [facility] [address] [place] [address] [email or web address] Treatment Team Hematology and Oncology 10/16/23 Eufemia Caro, NIKOLAS [address] [place] [address] [email or web address] Associate Infusion Nurse 10/16/23 documented as of this encounter Additional Source Comments The information contained in this document represents components of the legal health record. It is not the complete legal health record.[facility]
--- OUTSIDE RECORDS SUMMARY | 2025-06-24 15:25 | XMS_ITS | Encounter Summary ---
Author Organization [facility] Address [facility] [employer] [address] [address] Phone Care Team Providers Care Laboratory Tester Name Role Phone Debra Muniz MD Unavailable Mohinder Fan MD Unavailable [phone] Van Dupont MD Unavailable Markos James MD Primary Care Provider [phone] Arsh Mata MD Unavailable Eufemia Caro RN Unavailable MELISSA [email or web address] Encounter Details Date Type Department Care Team (Late st Contact Info) Description 06/05/2022 Procedure Pass [facility] [place] [address] [facility], 6th [place] [address] Social History Tobacco Use Types Packs/Day Years [...] Resolved Time CoV-Risk Comment:Per note documentation 10/31/2023 10/31/2023202 4 2:50 PM EST CoV-Risk Comment:Per note documentation 11/07/2023 11/07/2023 9:26 PM EST CoV-Risk Comment:Per note documentation 11/20/2023 11/21/2023 3:00 PM EDT Metapneumovirus 11/21/2023 11/21/2023 11/28/2023 1 :22 AM EDT documented as of this encounter Care Teams Laboratory Tester Relationship Specialty Start Date End Date Jacob, Markos Awan MD [address] [facility] [address] [place] [phone] PCP - General Internal Medicine 12/07/20 Debra Muniz MD [address] [place] [address] Medical Oncology 05/27/18 Mohinder Fan MD [address] [place] [address] Consulting Provider Geriatric Psychiatry 05/27/18 Van Dupont MD 55 [facility] [address] [place] [address] [email or web address] Primary Oncologist Medical Oncology 10/14/18 Arsh Mata MD [address] [facility] [address] [place] [address] [email or web address] Treatment Team Hematology and Oncology 10/16/23 Eufemia Caro, NIKOLAS 55 [place] [address] [email or web address] Associate Infusion Nurse 10/16/23 documented as of this encounter Additional Source Comments The information contained in this document represents components of the legal health record. It is not the complete legal health record.[facility]
--- OUTSIDE RECORDS SUMMARY | 2025-06-24 15:25 | XMS_ITS | Encounter Summary ---
Author Organization [facility] Address [address] [facility] [address] [place] [address] Phone Care Team Providers Care Esl Tutor Name Role Phone Debra Muniz MD Unavailable [phone] Mohinder Fan MD Unavailable [phone] Van Dupont MD Unavailable Markos James MD Primary Care Provider [phone] Arsh Mata MD Unavailable [phone] Eufemia Caro RN Unavailable MELISSA [email or web address] Encounter Details Date Type Department Care Team (Late st Contact Info) Description 01/21/2018 Procedure Pass [facility] [address] [place] [address] Social History Tobacco Use Types Packs/Day Years [...] documented as of this encounter Care Teams Esl Tutor Relationship Specialty Start Date End Date Po, Markos Awan MD [address] [facility] [place] [phone] PCP - General Internal Medicine 12/07/20 Debra Muniz MD [address] [place] [address] Medical Oncology 05/27/18 Mohinder Fan MD 103 [place] [address] Consulting Provider Geriatric Psychiatry 05/27/18 Van Dupont MD 55 [facility] [address] [place] [address] [email or web address] Primary Oncologist Medical Oncology 10/14/18 Arsh Mata MD 55 [facility] [address] [place] [address] [email or web address] Treatment Team Hematology and Oncology 10/16/23 Eufemia Caro, NIKOLAS 55 [place] [address] [email or web address] Associate Infusion Nurse 10/16/23 documented as of this encounter Additional Source Comments The information contained in this document represents components of the legal health record. It is not the complete legal health record.[facility]
--- OUTSIDE RECORDS SUMMARY | 2025-06-24 15:25 | XMS_ITS | Encounter Summary ---
Author Organization [facility] Address [address] [facility] [address] [place] [address] Phone Care Team Providers Care Preschool Head Teacher Name Role Phone Debra Muniz MD Unavailable Mohinder Fan MD Unavailable [phone] Van Dupont MD Unavailable Markos James MD Primary Care Provider Arsh Maat MD Unavailable [phone] Eufemia Caro RN Unavailable [email or web address] Reason for Visit * Reason Comments Medication Refill Encounter Details Date Type Department Care Team ([facility] st Contact Info) Description 06/20/2025 Refill [facility] Psychiatry Oncology [address] [place] [address], 10th Floor, [address] [place] [address] Sri Gandhi MD [address] [place] [address] [address] [place] [address] [email or web address] Medication Refill Social History Tobacco Use Types [...] the on-call Immune Effector Cell Attending via www.Mobile Backstage Login [facility] Page immediately if patient presents [...] team evaluation. Patients should be admitted to [place] [address] to the Immune Effector Cell Service. documented as of this encounter Visit Diagnoses Diagnosis Posttraumatic stress disorder documented in this encounter Care Teams Preschool Head Teacher Relationship Specialty Start Date End Date Jacob, Markos Awan MD [address] [place] [address] PCP - General Internal Medicine 12/07/20 Debra Muniz MD [address] [place] [address] Medical Oncology 05/27/18 Mohinder Fan MD [address] [place] [address] Consulting Provider Geriatric Psychiatry 05/27/18 Van Dupont MD [address] [place] [address] [email or web address] Primary Oncologist Medical Oncology 10/14/18 Arsh Mata MD [address] [place] [address] [email or web address] Treatment Team Hematology and Oncology 10/16/23 Eufemia Caro RN 55 [place] [address] [email or web address] Associate Infusion Nurse 10/16/23 documented as of this encounter Additional Source Comments The information contained in this document represents components of the legal health record. It is not the complete legal health record.[facility]
--- OUTSIDE RECORDS SUMMARY | 2025-06-24 15:25 | XMS_ITS | Encounter Summary ---
Author Organization [facility] Address [address] [facility] [address] [place] [address] Phone Care Team Providers Care Painting Manager Name Role Phone Debra Muniz MD Unavailable Mohinder Fan MD Unavailable [phone] Van Dupont MD Unavailable Markos James MD Primary Care Provider Arsh Mata MD Unavailable [phone] Eufemia Caro RN Unavailable MELISSA [email or web address] Encounter Details Date Type Department Care Team (Late st Contact Info) Description 02/06/2017 Procedure Pass [facility] [address] [place] [address] Social History Tobacco Use Types Packs/Day Years [...] documented as of this encounter Care Teams Painting Manager Relationship Specialty Start Date End Date Po, Markos Awan MD [address] [place] [phone] PCP - General Internal Medicine 12/07/20 Debra Muniz MD [address] [place] [address] Medical Oncology 05/27/18 Mohinder Fan MD 103 [place] [address] Consulting Provider Geriatric Psychiatry 05/27/18 Van Dupont MD 55 [facility] [address] [place] [address] [email or web address] Primary Oncologist Medical Oncology 10/14/18 Arsh Mata MD 55 [facility] [address] [place] [address] [email or web address] Treatment Team Hematology and Oncology 10/16/23 Eufemia Caro, NIKOLAS 55 [place] [address] [email or web address] Associate Infusion Nurse 10/16/23 documented as of this encounter Additional Source Comments The information contained in this document represents components of the legal health record. It is not the complete legal health record.[facility]
--- OUTSIDE RECORDS SUMMARY | 2025-06-24 15:25 | XMS_ITS | Clinical Summary ---
Author Organization [email or web address] Address [address] [facility] 7t [place] [address] Care Team Providers Care It Director Name Role Phone Unavailable Primary Care Provider [...] 30 minutes following use. 473 mL Active Encounters Date Type Department Care Team Description 06/24/2025 3:00 PM EDT Office Visit [facility] [address] [place] [address] Tyrone Taylor DMD Arrived from Last 3 Months Social History Tobacco [...] SDOH Screening 1944 Alcohol/Substance Use Screening 1957 Dental Prophylaxis 01/17/2020 07/18/2019 Dental Oral Exam 04/05/2022 10/05/2021 Dental X-Ray: Bitewings 06/09/2024 06/08/2023, 10/05 Dental X-Ray: Full Mouth 10/06/2024 10/05/2021 Tobacco Screening 04/25/2025 04/25/2024 Influenza Vaccine (#1) 2025 , 06/18/2023, 06/07/2022, Additional history exists COVID-19 Vaccine ( season) 2025 06/21/2025, 05/27/2024, 06/18/2023, Additional history exists DTaP/Tdap/Td Vaccines (2 - Td or Tdap) 12/04/2034 12/04/2024 Pneumococcal Vaccine: 50+ Years Completed 10/07/2018, 01/15/2017 RSV Patients and Patients Aged 60 years or older Completed 07/14/2023 Zoster Vaccines Completed 04/30/2025, 02/13/2025 HIB Vaccines Aged Out No longer eligi [...]
--- OUTSIDE RECORDS SUMMARY | 2025-06-24 15:25 | XMS_ITS | Encounter Summary ---
Author Organization [facility] Address [address] [place] [phone] Care Team Providers Care Intensive Care Nurse Name Role Phone Markos James MD Primary Care Provider [phone] Encounter Details Date Type Department Care Team (Late st Contact Info) Description 09/25/2024 Lab Requisition [facility] [address] [facility] [place] [address] Glo Espinoza PA [address] [place], [place] [phone] Personal history of malignant neoplasm of bladder [...] AM EST) Final Diagnosis A. Urine, Voided, ([id number]): Negative for high grade urothelial carcinoma. Results of UroVysion fluorescence in situ hybridization (FISH) testing: CEP3: Normal CEP7: Normal CEP17: Normal LSI 9p21: Normal Interpretation: Normal profile Controls stained appropriately. Note: The results are intended as a screening device and should be interpreted in association with other clinical and pathological findings. 10/09/2024 11:50 AM EST [facility] Clinical Information History of bladder neoplasm (malignant) Z85.51 Urine Cytology/FISH (now) 10/09/2024 11:50 AM [facility] Gross Description A. Urine, Voided, ([id number]): Received one ThinPrep slide for cytology screen and one ThinPrep slide for UroVysion FISH 10/09/2024 11:50 AM [facility] Disclaimer Unless otherwise specified, all tissue is 10% NB formalin fixed and paraffin embedded. Technical pathology services provided by [facility] at [address] [place] [address] [address], [place] [address] (CLIA #[id number]/Nara Deal MD, [place]) 10/09/2024 11:50 AM [facility] Tissue Urine specimen from urethra / Unknown 09/19/2024 09/25/2024 8:14 AM EST us [facility] PATHOLOGY ORDERABLES Final Result [facility] [address] [place] [address], documented in this encounter Visit Diagnoses Diagnosis Personal history of malignant neoplasm of bladder documented in this encounter Care Teams Intensive Care Nurse Relationship Specialty Start Date End Date Markos James MD [address] [place] [address] Dr [address] [facility] [place] [address] PCP - General 01/08/24 documented as of this encounter
--- OUTSIDE RECORDS SUMMARY | 2025-06-24 15:25 | XMS_ITS | Encounter Summary ---
Author Organization [facility] Address [facility] [address] [address] Phone Care Team Providers Care Digital Forensic Examiner Name Role Phone Debra Muniz MD Unavailable Mohinder Fan MD Unavailable [phone] Van Dupont MD Unavailable Markos James MD Primary Care Provider [phone] Arsh Mata MD Unavailable [phone] Eufemia Caro RN Unavailable [email or web address] [email or web address] Encounter Details Date Type Department Care Team (Late st Contact Info) Description 10/30/2022 Procedure Pass [facility] [place] [address] [facility], 6th [place] [address] Social History Tobacco Use Types Packs/Day Years [...] documented as of this encounter Care Teams Digital Forensic Examiner Relationship Specialty Start Date End Date Jacob, Markos Awan MD [address] [place] [phone] PCP - General Internal Medicine 12/07/20 Debra Muniz MD [address] [place] [address] Medical Oncology 05/27/18 Mohinder Fan MD [address] [place] [address] Consulting Provider Geriatric Psychiatry 05/27/18 Van Dupont MD 55 [facility] [address] [place] [address] [email or web address] u Primary Oncologist Medical Oncology 10/14/18 Arsh Mata MD 55 [facility] [address] [place] [address] [email or web address] Treatment Team Hematology and Oncology 10/16/23 Eufemia Caro, NIKOLAS [address] [place] [address] [email or web address] Associate Infusion Nurse 10/16/23 documented as of this encounter Additional Source Comments The information contained in this document represents components of the legal health record. It is not the complete legal health record.[facility]
--- OUTSIDE RECORDS SUMMARY | 2025-06-24 15:25 | XMS_ITS | Encounter Summary ---
Author Organization [facility] Address [address] [employer] [address] [address] Phone Care Team Providers Care Car Examiner Name Role Phone Debra Muniz MD Unavailable Mohinder Fan MD Unavailable [phone] Van Dupont MD Unavailable Markos James MD Primary Care Provider Arsh Mata MD Unavailable Eufemia Caro RN Unavailable [email or web address] [email or web address] Encounter Details Date Type Department Care Team (Late st Contact Info) Description 09/11/2023 Procedure Pass [facility] [address] [place] [address] Social History Tobacco Use Types Packs/Day Years [...] documented as of this encounter Care Teams Car Examiner Relationship Specialty Start Date End Date Markos James MD [address] [place] [phone] PCP - General Internal Medicine 12/07/20 Debra Muniz MD [address] [place] [address] Medical Oncology 05/27/18 Mohinder Fan MD [address] [place] [address] Consulting Provider Geriatric Psychiatry 05/27/18 Van Dupont MD [address] [place] [address] [email or web address] Primary Oncologist Medical Oncology 10/14/18 Arsh Mata MD [address] [place] [address] [email or web address] Treatment Team Hematology and Oncology 10/16/23 Eufemia Caro RN [address] [place] [address] [email or web address] Associate Infusion Nurse 10/16/23 documented as of this encounter Additional Source Comments The information contained in this document represents components of the legal health record. It is not the complete legal health record.[facility]
--- OUTSIDE RECORDS SUMMARY | 2025-06-24 15:25 | XMS_ITS | Encounter Summary ---
Author Organization [facility] Address [address] [employer] [facility] [address] [place] [address] Phone Care Team Providers Care Machine Milker Name Role Phone Debra Muniz MD Unavailable Mohinder Fan MD Unavailable [phone] Van Dupont MD Unavailable Markos James MD Primary Care Provider [phone] Arsh Mata MD Unavailable [phone] Eufemia Caro RN Unavailable MELISSA [email or web address] Encounter Details Date Type Department Care Team (Late st Contact Info) Description 04/17/[address] [facility] [address] [place] [address] Social History Tobacco Use Types Packs/Day Years [...] documented as of this encounter Care Teams Machine Milker Relationship Specialty Start Date End Date Jacob, Markos Awan MD [address] [facility] [address] [facility] [address] [place] [phone] PCP - General Internal Medicine 12/07/20 Debra Muniz MD [address] [place] [address] Medical Oncology 05/27/18 Mohinder Fan MD [address] [place] [address] Consulting Provider Geriatric Psychiatry 05/27/18 Van Dupont MD [address] [facility] [address] [place] [address] [email or web address] Primary Oncologist Medical Oncology 10/14/18 Arsh Mata MD 55 [facility] [address] [place] [address] [email or web address] Treatment Team Hematology and Oncology 10/16/23 Eufemia Caro, NIKOLAS [address] [place] [address] [email or web address] Associate Infusion Nurse 10/16/23 documented as of this encounter Additional Source Comments The information contained in this document represents components of the legal health record. It is not the complete legal health record.[facility]
--- OUTSIDE RECORDS SUMMARY | 2025-06-24 15:25 | XMS_ITS | Clinical Summary ---
Author Organization [facility] Address [address] [place] [address] Phone Care Team Providers Care Butter Grader Name Role Phone Markos James MD Primary Care Provider [phone] Allergies Active Allergy Reactions Criticality Noted Date [...] age to complete this topic Insurance MEDICARE [facility] Care Teams Butter Grader Relationship Specialty Start Date End Date Markos James MD NPI: [id number] [place] [address] Dr [address] [facility] [place] [address] PCP - General 01/08/24
--- OUTSIDE RECORDS SUMMARY | 2025-06-24 15:26 | XMS_ITS | Clinical Summary ---
Author Organization [facility] Address [address] [facility] [address] [place] [address] Phone Care Team Providers Care Airplane Pilot Name Role Phone Debra Muniz MD Unavailable [phone] Mohinder Fan MD Unavailable [phone] Van Dupont MD Unavailable Po, Markos Awan MD Primary Care Provider [phone] Arsh Mata MD Unavailable [phone] Eufemia Caro RN Unavailable [email or web address] [email or web address] Active Allergy Reactions Criticality Noted Date [...] therapy team care. Cleared to return to [facility] Myeloma team: As of DATE 11/30/23 - Patient is currently without any acute Cell Therapy related signs and symptoms and has been cleared by their Cell Therapy MD to transfer care back to their primary oncology team. MD to MD pass off will occur separately. For any questions please contact: [facility] Cancer Center: Cellular Therapy Team phone: [phone] [facility] CAR-T fax: [phone] Problem Noted Date Diagnosed Date Unspecified severe [...] with Dr. Ricks 11/29/23. Assessment & Plan (05/21/2025 11:12 AM EDT): #Cancer related pain: During hospitalization Moni [...] acetaminophen 650 mg PO Q6H PRN, pain -Consider Butrans patch with her local Pain specialist #Anxiety: Moni has a history of anxiety, is seen by outpatient Psycho-Oncology team (Dr. Gandhi), takes lorazepam PRN with excellent effect. Anxiety is exacerbated by multiple sources of uncertainty related to her cancer diagnosis and treatment. She felt very safe at [facility] and feels she has received excellent medical care through [facility] cancer center. She has some trepidation about [...] reassurance that she can still call the [facility] cancer center for advice, day or night #ACP: Code status: full code HCP: Davon (form on file) Assessment & Plan (01/15/2025 1:24 PM EDT): [...] and treatment. She felt very safe at [facility] and feels she has received excellent medical care through [facility] cancer center. She has some trepidation about [...] reassurance that she can still call the [facility] cancer center for advice, day or night [...] and treatment. She felt very safe at [facility] and feels she has received excellent medical care through [facility] cancer center. She has some trepidation about [...] reassurance that she can still call the [facility] cancer center for advice, day or night [...] and treatment. She felt very safe at [facility] and feels she has received excellent medical care through [facility] cancer center. She has some trepidation about [...] reassurance that she can still call the [facility] cancer center for advice, day or night [...] and treatment. She felt very safe at [facility] and feels she has received excellent medical care through [facility] cancer center. She has some trepidation about [...] reassurance that she can still call the [facility] cancer center for advice, day or night [...] and treatment. She felt very safe at [facility] and feels she has received excellent medical care through [facility] cancer center. 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 Taking Morphine oral solution PRN started with [...] and not neutropenic. Developed non-neutropenic fever on 3/ AM with accompanied chills. Kumar-cultured. First temp [...] & Plan (11/09/2023 12:00 AM EST): Diagnosis: [place] LC Multiple Myeloma Primary Oncologist: Dr. Van [...] & Plan (10/31/2023 7:44 AM EST): Diagnosis: [place] LC Multiple Myeloma Primary Oncologist: Dr. Van [...] Encounters Date Type Department Care Team Description 06/20/2025 Refill [facility] Psychiatry Oncology [address], 10th [address], [address] [place] [address] Sri Gandhi MD Medication Refill 05/27/2025 Ancillary Orders [facility] [address] [place] [address] Van Dupont MD 05/21/2025 9:30 AM EDT Telemedicine - audio only [facility] [address], 7th [address], [address] [place] [address] Mandy Ricks MD Malaise and fatigue (Primary Dx); Multiple myeloma not having achieved remission; Pain of lower extremity, unspecified laterality; Encounter for palliative care 05/14/2025 Orders Only [facility] Malignancies [address], 9th [address], [address] [place] [address] ProviderBina MD 05/12/2025 12:30 PM EDT Office Visit [facility] Malignancies [address], [address], [address] [place] [address] Van Dupont MD Multiple myeloma, remission status [...] 06/08/2024 3:08 PM EDT Plan of Treatment Health Maintenance Due Date Last Done Comments DEPRESSION SCREENING 1957 OSTEOPOROSIS SCREENING INITIAL (ONE-TIME) 02/08/2009 INFLUENZA VACCINE (#1) 2025 , 06/18/2023, 06/07/2022, Additional history exists COVID-19 VACCINE ( season) 2025 05/27/2024, 06/18/2023, 05/18/2022, Additional history exists CREATININE LEVEL 05/12/2026 05/12/2025, 02/2025, 09/09/2024, Additional history exists POTASSIUM LEVEL 05/12/2026 05/12/2025, 0502/2025, 09/09/2024, Additional history exists Adult Td,Tdap Booster [...] the on-call Immune Effector Cell Attending via [email or web address] Page immediately if patient presents [...] team evaluation. Patients should be admitted to [place] [address] to the Immune Effector Cell Service. Medical [...] * Outside Lab (05/14/2025 10:54 AM EDT) Historical Provider LAB BLOOD ORDERABLES Rosalba l Result * LDH (05/12/2025 11:19 AM EDT) LDH 188 110 - 210 U/L [facility] 05/12/2025 11:1 9 AM EDT 05/12/2025 11:29 AM EDT Van Dupont MD LAB BLOOD ORDERABLES Final Resul t Performing Organization Address [facility] Co de Phone Number [address] [address] * Comprehensive metabolic panel (05/12/2025 11:19 AM EDT) SODIUM 140 135 - 145 mmol/L [facility] POTASSIUM 4.6 3.4 - 5.0 mmol/L [facility] CHLORIDE 106 98 - 108 mmol/L [facility] CO2 24 23 - 32 mmol/L [facility] BUN 20 8 - 25 mg/dL [facility] CREATININE 0.87 0.50 - 1.00 mg/dL [facility] GLUCOSE 104 70 - 110 mg/dL [facility] ALBUMIN 4.4 3.3 - 5.0 g/dL [facility] TOTAL PROTEIN 6.9 6.0 - 8.3 g/dL [facility] CALCIUM 9.8 8.5 - 10.5 mg/dL [facility] ALKALINE PHOSPHATASE 85 30 - 100 U/L [facility] TOTAL BILIRUBIN 0.6 0.0 - 1.0 mg/dL [facility] AST 28 9 - 32 U/L [facility] ALT 22 7 - 33 U/L [facility] GLOBULIN 2.5 1.9 - 4.1 g/dL [facility] EGFR 67 >59 mL/min/1. 73m2 [facility] Comment:Estimated glomerular filtration rate calculated using the CKD-EPI refit equation. ANION GAP 10 3 - 17 mmol/L [facility] 05/12/2025 11:1 9 AM EDT 05/12/2025 11:29 AM EDT us Van Dupont MD LAB BLOOD ORDERABLES Final Resul t Performing Organization Address City/[facility] Co de Phone Number [address] [address] * (ABNORMAL) SPEP panel (05/12/2025 11:19 AM EDT) Total Protein 6.7 6.0 - 8.3 g/dL [facility] IMMUNOGLOBULIN G 684 614 - 1,295 mg/dL [facility] IgA 17(L) 69 - 309 mg/dL [facility] IMMUNOGLOBULIN M 55 53 - 334 mg/dL [facility] SPEP Normal pattern [facility] Comment: Normal SPEP: Normal pattern Carmen Rosado M.D., Director Clinical Immunology Laboratory [id number] Serum protein electrophoresis results should be evaluated in the context of separately reported serum free light chain levels and ratio when these additional results are available. 05/12/2025 11:1 9 AM EDT 05/12/2025 11:30 AM EDT Van Dupont MD LAB BLOOD ORDERABLES Final Resul t Performing Organization Address City/[facility] Co de Phone Number [address] [address] * Iron and iron binding capacity (05/12/2025 11:19 AM EDT) IRON 77 30 - 160 ug/dL [facility] IRON BINDING CAPACITY 378 230 - 404 ug/dL [facility] TRANSFERRIN SATURAT. 20 14 - 50 % [facility] 05/12/2025 11:1 9 AM EDT 05/12/2025 11:29 AM EDT us Van Dupont MD LAB BLOOD ORDERABLES Final Resul t Performing Organization Address [facility] Co de Phone Number [address] [address] * Free light chains, serum (05/12/2025 11:19 AM EDT) FREE KAPPA LT CHAIN 5.3 3.3 - 19.4 mg/L [facility] FREE LAMBDA LT CHAIN 6.3 5.7 - 26.3 mg/L [facility] FREE KAPPA LAMBDA RAT 0.84 0.30 - 1.70 [facility] 05/12/2025 11:1 9 AM EDT 05/12/2025 11:30 AM EDT us Van Dupont MD LAB BLOOD ORDERABLES Final Resul t Performing Organization Address City/[facility] Co de Phone Number [address] [address] * (ABNORMAL) CBC and differential (05/12/2025 11:19 AM EDT) WBC 8.25 4.00 - 11.00 K/uL [facility] RBC 4.38 4.00 - 5.20 M/uL [facility] HGB 12.8 12.0 - 16.0 g/dL [facility] HCT 38.4 36.0 - 46.0 % [facility] PLT 149(L) 150 - 450 K/uL [facility] MCV 87.7 80.0 - 100.0 fL [facility] MCH 29.2 27.0 - 31.0 pg [facility] MCHC 33.3 32.0 - 36.0 g/dL [facility] RDW 13.7 11.5 - 14.5 % [facility] MPV 8.7 8.4 - 12.0 fL [facility] NRBC 0.00 0.00 /100 WBCs [facility] ABSOLUTE NRBC 0.00 0.00 K/uL [facility] DIFF METHOD Auto [facility] NEUTS 81.1(H) 48.0 - 76.0 % [facility] LYMPHS 9.7(L) 18.0 - 41.0 % [facility] MONOS 7.8 4.0 - 11.0 % [facility] EOS 0.4 0.0 - 5.0 % [facility] BASOS 0.2 0.0 - 1.5 % [facility] % IMMATURE GRANS 0.8 0.0 - 0.9 % [facility] ABSOLUTE NEUTS 6.69 1.92 - 7.60 K/uL [facility] ABSOLUTE LYMPHS 0.80 0.72 - 4.10 K/uL [facility] ABSOLUTE MONOS 0.64 0.16 - 1.10 K/uL [facility] ABSOLUTE EOS 0.03 0.00 - 0.50 K/uL [facility] ABSOLUTE BASOS 0.02 0.00 - 0.15 K/uL [facility] ABS IMMATURE GRANS 0.07 0.00 - 0.09 K/uL [facility] Blood 05/12/2025 11:1 9 AM EDT 05/12/2025 11:29 AM EDT us Van Dupont MD LAB BLOOD ORDERABLES Final Resul t [address] [address] * Phosphorus (05/12/2025 11:19 AM EDT) PHOSPHORUS 4.1 2.6 - 4.5 mg/dL [facility] 05/12/2025 11:1 9 AM EDT 05/12/2025 11:29 AM EDT us Van Dupont MD LAB BLOOD ORDERABLES Final Resul t Performing Organization Address [facility] Co de Phone Number [address] [address] * Magnesium (05/12/2025 11:19 AM EDT) MAGNESIUM 2.4 1.7 - 2.4 mg/dL [facility] 05/12/2025 11:1 9 AM EDT 05/12/2025 11:29 AM EDT us Van Dupont MD LAB BLOOD ORDERABLES Final Resul t Performing Organization Address [facility] Co de Phone Number [address] [address] * Folate (05/12/2025 11:19 AM EDT) FOLIC ACID >20.0 >4.7 ng/mL [facility] 05/12/2025 11:1 9 AM EDT 05/12/2025 11:30 AM EDT us Van Dupont MD LAB BLOOD ORDERABLES Final Resul t Performing Organization Address [facility] Co de Phone Number [address] [address] * (ABNORMAL) Ferritin (05/12/2025 11:19 AM EDT) FERRITIN 248(H) 10 - 200 ug/L [facility] 05/12/2025 11:1 9 AM EDT 05/12/2025 11:29 AM EDT us Van Dupont MD LAB BLOOD ORDERABLES Final Resul t [address] [address] * Vitamin B12 (05/12/2025 11:19 AM EDT) VITAMIN B12 1,317 >231 pg/mL [facility] 05/12/2025 11:1 9 AM EDT 05/12/2025 11:29 AM EDT us Van Dupont MD LAB BLOOD ORDERABLES Final Resul t Performing Organization Address City/[facility]/ZIP Co de Phone Number [address] [address] * (ABNORMAL) Beta-2 microglobulin, blood (05/12/2025 11:19 AM EDT) BETA 2 MICROGLOBUL 2.65(H) 0.80 - 2.34 mcg/mL [facility] 05/12/2025 11:1 9 AM EDT 05/12/2025 11:30 AM EDT us Van Dupont MD LAB BLOOD ORDERABLES Final Resul t Performing Organization Address City/[facility] Co de Phone Number [address] [address] from Last 3 Months Insurance WOUNDED KNEE CROSS MEDEX SUPPLEMENT MEDICARE PART A & B WOUNDED KNEE [employer] MEDEX SUPPLEMENT MEDICARE PART A & B WOUNDED KNEE [employer] MEDEX SUPPLEMENT MEDICARE PART A & B Member Subscriber Plan / Payer ( fective 2009-Present) Name:Moni Cole Member ID:[id number] Relation to Subscriber:Self Name:Moni Cole Subscriber ID:[id number] Payer ID:[id number] Group ID:Not on file Type:Medicare Address: [employer] [address] [employer] MEDEX SUPPLEMENT MEDICARE PART A & B WOUNDED KNEE Pro[employer] MEDEX SUPPLEMENT MEDICARE PART A & B [employer] MEDEX SUPPLEMENT MEDICARE PART A & B [employer] CROSS MEDEX SUPPLEMENT MEDICARE PART A & B [employer] CROSS MEDEX SUPPLEMENT MEDICARE PART A & B [facility] MEDEX SUPPLE[facility] MEDICARE PART A & B Advance Directives For more information, please contact: [phone] (9AM - 5PM [facility], Sunday-Sunday) Documents on File Type Date Recorded Patient Warehouse Order Selector Expl anation Healthcare Proxy 11/12/2023 5:43 PM * Full Code (Latest Code Status on File) Date Activated Date Inactivated Comments 10/31/2023 4:30 PM Question Answer Comments Code Status Confirmed With: Patient Healthcare Agents on File Name Relationship Healthcare Agent Relationshi p Communication Davon Kelsey Spouse .Primary Health Care Agent (Proxy form on file) [email or web address] Care Teams Airplane Pilot Relationship Specialty Start Date End Date Po, Markos Awan MD [address] [place] [phone] PCP - General Internal Medicine 12/07/20 Debra Muniz MD [address] [place] [address] Medical Oncology 05/27/18 Mohinder Fan MD [address] [place] [address] Consulting Provider Geriatric Psychiatry 05/27/18 Van Dupont MD [address] [place] [address] [email or web address] Primary Oncologist Medical Oncology 10/14/18 Arsh Maat MD [address] [place] [address] [email or web address] Treatment Team Hematology and Oncology 10/16/23 Eufemia Caro RN [address] [place] [address] [email or web address] Associate Infusion Nurse 10/16/23 Additional Source Comments The information contained in this document represents components of the legal health record. It is not the complete legal health record.[facility]
--- OUTSIDE RECORDS SUMMARY | 2025-06-24 15:26 | XMS_ITS ---
Author Organization [facility] Address [address] [facility] [address] [place] [address] Phone Care Team Providers Care Mop Machine Operator Name Role Phone Debra Muniz MD Unavailable Mohinder Fan MD Unavailable [phone] Van Dupont MD Unavailable Markos James MD Primary Care Provider [phone] Arsh Mata MD Unavailable [phone] Eufemia Caro RN Unavailable [email or web address] Active Problems Patient Care Coordination No te Formatting of this note migh t be different from the original. Statement of completion of cellular therapy team care. Cleared to return to [facility] Myeloma team: As of DATE 11/30/23 - Patient is currently without any acute Cell Therapy related signs and symptoms and has been cleared by their Cell Therapy MD to transfer care back to their primary oncology team. MD to MD pass off will occur separately. For any questions please contact: [facility] Cancer Center: Cellular Therapy Team phone: [phone] [facility] CAR-T fax: [phone] Problem Noted Date Diagnosed Date Unspecified severe [...] and treatment. She felt very safe at [facility] and feels she has received excellent medical care through [facility] cancer center. She has some [...] reassurance that she can still call the [facility] cancer center for advice, day [...] and treatment. She felt very safe at [facility] and feels she has received excellent medical care through [facility] cancer center. She has some [...] reassurance that she can still call the [facility] cancer center for advice, day [...] and treatment. She felt very safe at [facility] and feels she has received excellent medical care through [facility] cancer center. She has some [...] reassurance that she can still call the [facility] cancer leary for advice, day or night #ACP: Code [...] and treatment. She felt very safe at [facility] and feels she has received excellent medical care through [facility] cancer center. She has some [...] reassurance that she can still call the [facility] cancer center for advice, day [...] and treatment. She felt very safe at [facility] and feels she has received excellent medical care through [facility] cancer center. She has some [...] reassurance that she can still call the [facility] cancer center for advice, day [...] and treatment. She felt very safe at [facility] and feels she has received excellent medical care through [facility] cancer center. 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 Developed non-neutropenic fever on 3 AM with accompanied chills. Kumar-cultured. First temp [...] daily - PJP: Bactrim DS 3x/week on / Assessment & Plan (10/31/2023 7:59 AM EST): [...] & Plan (11/09/2023 12:00 AM EST): Diagnosis: [place] LC Multiple Myeloma Primary Oncologist: Dr. Van [...] & Plan (10/31/2023 7:44 AM EST): Diagnosis: [place] LC Multiple Myeloma Primary Oncologist: Dr. Van [...]
--- OUTSIDE RECORDS SUMMARY | 2025-06-24 15:26 | XMS_ITS | Encounter Summary ---
Author Organization [facility] Address [address] [place] [address] Phone Care Team Providers Care Last Trimmer Name Role Phone Debra Muniz MD Unavailable Mohinder Fan MD Unavailable [phone] Van Dupont MD Unavailable Markos James MD Primary Care Provider [phone] Arsh Mata MD Unavailable Eufemia Caro RN Unavailable [email or web address] Encounter Details Date Type Department Care Team (Late st Contact Info) Description 12/27/[address] - [address], [address] [place] [address] Social History Tobacco Use Types Packs/Day Years [...] Time CoV-Risk Comment:Per note documentation 10/31/2023 10/31/2023 02/28/202 4 2:50 PM EST CoV-Risk Comment:Per note documentation 11/07/2023 11/07/2023 9:26 PM EST CoV-Risk Comment:Per note documentation 11/20/2023 11/21/2023 3:00 PM EDT Metapneumovirus 11/21/2023 11/21/2023 11/28/2023 1 :22 AM EDT documented as of this encounter Care Teams Last Trimmer Relationship Specialty Start Date End Date Po, Markos Awan MD [address] [place] [phone] PCP - General Internal Medicine 12/07/20 Debra Muniz MD [address] [place] [address] Medical Oncology 05/27/18 Mohinder Fan MD [address] [place] [address] Consulting Provider Geriatric Psychiatry 05/27/18 Van Dupont MD [address] [place] [address] [email or web address] Primary Oncologist Medical Oncology 10/14/18 Arsh Mata MD [address] [facility] [address] [facility] [address] [place] [address] [email or web address] Treatment Team Hematology and Oncology 10/16/23 Eufemia Caro, NIKOLAS [address] [place] [address] [email or web address] Associate Infusion Nurse 10/16/23 documented as of this encounter Additional Source Comments The information contained in this document represents components of the legal health record. It is not the complete legal health record.[facility]
--- OUTSIDE RECORDS SUMMARY | 2025-06-24 15:26 | XMS_ITS | Encounter Summary ---
Author Organization [facility] Address [facility] [employer] [address] [address] Phone Care Team Providers Care Salmon Troll Fisher Name Role Phone Debra Muniz MD Unavailable [phone] Mohinder Fan MD Unavailable [phone] Van Dupont MD Unavailable Markos James MD Primary Care Provider Arsh Mata MD Unavailable Eufemia Caro RN Unavailable MELISSA [email or web address] Encounter Details Date Type Department Care Team (Late st Contact Info) Description 03/15/2021 Procedure Pass [facility] - [place] [address] [facility], 6th [place] [address] Social History Tobacco Use Types Packs/Day Years [...] documented as of this encounter Care Teams Salmon Troll Fisher Relationship Specialty Start Date End Date Jacob, Markos Awan MD [address] [facility] [address] [place] [phone] PCP - General Internal Medicine 12/07/20 Debra Muniz MD [address] [place] [address] Medical Oncology 05/27/18 Mohinder Fan MD [address] [place] [address] Consulting Provider Geriatric Psychiatry 05/27/18 Van Dupont MD 55 [facility] [address] [place] [address] [email or web address] Primary Oncologist Medical Oncology 10/14/18 Arsh Mata MD [address] [facility] [address] [place] [address] [email or web address] Treatment Team Hematology and Oncology 10/16/23 Eufemia Caro, NIKOLAS 55 [place] [address] [email or web address] Associate Infusion Nurse 10/16/23 documented as of this encounter Additional Source Comments The information contained in this document represents components of the legal health record. It is not the complete legal health record.[facility]
--- OUTSIDE RECORDS SUMMARY | 2025-06-24 15:26 | XMS_ITS | Encounter Summary ---
Author Organization [facility] Address [address] [employer] [facility] [address] [place] [address] Phone Care Team Providers Care Hospice Volunteer Name Role Phone Debra Muniz MD Unavailable Mohinder Fan MD Unavailable [phone] Van Dupont MD Unavailable Markos James MD Primary Care Provider [phone] Arsh Mata MD Unavailable Eufemia Caro RN Unavailable MELISSA [email or web address] Encounter Details Date Type Department Care Team (Late st Contact Info) Description 12/14/2023 Procedure Pass [facility] - MRI 32 [facility], 6th [place] [address] Social History Tobacco Use Types Packs/Day Years [...] the on-call Immune Effector Cell Attending via www.[employer] Login [facility] Page immediately if patient presents [...] team evaluation. Patients should be admitted to [place] [address] to the Immune Effector Cell Service. documented as of this encounter Visit Diagnoses Not on filedocumented in this encounter Care Teams Hospice Volunteer Relationship Specialty Start Date End Date Markos James MD [address] [place] [address] [address] [place] [address] PCP - General Internal Medicine 12/07/20 Debra Muniz MD [address] [place] [address] Medical Oncology 05/27/18 Mohinder Fan MD 103 [place] [address] Consulting Provider Geriatric Psychiatry 05/27/18 Van Dupont MD 55 [facility] [address] [place] [address] [email or web address] Primary Oncologist Medical Oncology 10/14/18 Arsh Mata MD 55 [facility] [address] [place] [address] [email or web address] Treatment Team Hematology and Oncology 10/16/23 Eufemia Caro, NIKOLAS 55 [place] [address] [email or web address] Associate Infusion Nurse 10/16/23 documented as of this encounter Additional Source Comments The information contained in this document represents components of the legal health record. It is not the complete legal health record.[facility]
--- OUTSIDE RECORDS SUMMARY | 2025-06-24 15:26 | XMS_ITS | Encounter Summary ---
Author Organization [employer] Address [address] [facility] 7t [place] [address] Care Team Providers Care Transportation Logistics Internship Name Role Phone Unavailable Primary Care Provider [...]
--- OUTSIDE RECORDS SUMMARY | 2025-06-24 15:26 | XMS_ITS | Encounter Summary ---
Author Organization [employer] Address [address] [facility] 7t [place] [address] Care Team Providers Care Podiatrist Assistant Name Role Phone Unavailable Primary Care Provider [...]
== END 2025-06-24 12:07 | disposition home or self-care (01) ==
LOC: HO.HPS 11:17
PROVIDERS: PCP Internal Medicine; Visit Provider Internal Medicine
DX: J44.9 Chronic obstructive pulmonary disease, unspecified (principal); R06.00 Dyspnea, unspecified
CPT/HCPCS: 99213

== ENCOUNTER → 2025-06-24 11:17 | Outpatient (BNVA) | payer MEDICARE, SELFPAY | PROVIDERS: PCP Internal Medicine; Visit Provider Internal Medicine | DX: J44.9 Chronic obstructive pulmonary disease, unspecified (principal); R06.00 Dyspnea, unspecified; Z87.891 Personal history of nicotine dependence; Z99.81 Dependence on supplemental oxygen | CPT/HCPCS: 99212 ==

== ENCOUNTER 2025-07-23 14:28 | Outpatient (AMB) | payer MEDICARE, SELFPAY ==
--- OUTSIDE RECORDS SUMMARY | 2015-10-28 | XMS_ITS | Encounter Summary ---
Author Organization [facility] Address [address] [facility] [address] [place] [address] Phone Care Team Providers Care Corporate Meeting Planner Name Role Phone Unavailable Primary Care Provider Unavailabl e Reason for Visit * MRI/CAT Scan - Closed Specialty Diagnoses / Procedures Referred By Yasir t Referred To Contact Procedures CT Chest Outside (No Interpretation) Van Dupont MD [address] [place] [address] Phone: tel: fax: mailto:[email or web address] du Referral ID Status Reason Start Date Expiration Date Visits Re quested Visits Authorized [id number] Closed 01/24/2017 01/24/2018 1 1 Encounter Details Date Type Department Care Team (Late st Contact Info) Description 10/28/2015 Hospital Encounter [facility] [address] [place] [address] Van Dupont MD [address] [place] [address] [email or web address] Social History Tobacco Use Types Packs/Day Years Used Date Smoking Tobacco: Former Cigarettes Smokeless Tobacco: Never Alcohol Use Standard Drinks/Week Comments Not Currently 0 (1 standard drink = 0.6 oz pur e alcohol) Education Answer Date Recorded Are you interested in more education? Not on tico e 12/28/2022 Are you concerned about learning? Not on file 12/28/2022 No 12/28/2022 No 12/28/2022 Digital Access Answer Date Recorded No 01/29/2023 No 01/29/2023 Reliable internet access at home? Not on file 01/29/2023 Device with a working camera? Not on file Intimate Partner Violence Answer Date R ecorded Are you denied basic needs s uch as food, clothing, or medical care? No 10/31/2023 In the past 12 months have y ou been in a relationship with a person who hurts, threatens, or tries to control you? No 10/31/2023 Are you denied basic needs s uch as food, clothing, or medical care? No 10/31/2023 In the past 12 months have y ou been in a relationship with a person who hurts, threatens, or tries to control you? No 10/31/2023 Comments Unknown Sex and Gender Information Value Date Recorded Sex Assigned at Not on file Legal Sex Female 11:39 AM EDT Gender Identity Not on file Sexual Orientation Not on file documented as of this encounter Functional Status * Calculated C-SSRS Risk Score (Lifetime/Recent) Answer Date of Assessment Author No Risk Indicated 10/31/2023 4:32 PM Shyanne Owens RN * [place] Suicide Severity Rating Scale (Screener/Recent Self-Report) Question Answer Date of Assessment Author 1. Wish to be (Past 1 Month) No 10/31/2023 4:32 PM Shyanne Owens, NIKOLAS 2. Non-Specific Active Suicidal Thoughts (Past 1 Month) No 10/31/2023 4:32 PM Shyanne Owens, NIKOLAS 6. Suicidal Behavior (Lifetime) No 10/31/2023 4:32 PM Shyanne Owens, NIKOLAS documented as of this encounter Plan of Treatment Upcoming Encounters Date Type Department Care Team (Late st Contact Info) Description 05/13/2025 Procedure Pass [facility] for Outpatient Care - MRI [address] [place] [address], 6th [place] [address] 09/09/2025 10:30 AM EST Blood Draw [facility] Malignancies [address] [place] [address], 9th Floor, [address] [place] [address] Van Dupont MD [address] [address] [email or web address] 09/09/2025 10:50 AM EST Appointment [facility] for [facility]patient Care - MRI [address] [facility], 6th [place] [address] Van Dupont MD [address] [address] [email or web address] 09/09/2025 11:30 AM EST Office Visit [facility] Center for Hematology Malignancies [address] [facility], 9th Floor, [address] [place] [address] Van Dupont MD [address] [address] [email or web address] documented as of this encounter Goals Goal Patient Goal Type Associated Problems Recent Progress Patient-Stated? Author Acute Care Plan Acute Care Plan No Carolina Jackson RN Note: Cellular therapy/ Immune Effector Cell patient. Patient received cellular therapy product Amol-reese on 11/01/23 Page the on-call Immune Effector Cell Attending via www.iMe[employer] Login [facility] Page immediately if patient presents within the first 30 days (11/30/23) of cell infusion. Patient needs to remain in a private space while waiting for evaluation. Please draw these labs for immediate results CBC with dif, comprehensive metabolic panel (CMP) , INR, PT, PTT, LDH, uric acid, C-Reactive Protein, ferritin, fibrinogen, Type and Screen 3. If febrile, obtain urine and blood cultures and chest X-ray. 4. Assess for the onset of new neurological symptoms. Additional workup per discretion of emergency team evaluation. Patients should be admitted to [place] [address] to the Immune Effector Cell Service. documented as of this encounter Procedures Procedure Name Priority Date/Time Associated Diagnosis Comments CT CHEST OUTSIDE (NO INTERPRETATION) Routine 10/28/2015 12:00 AM EST documented in this encounter Results * CT Chest Outside (No Interpretation) (10/28/2015 12:00 AM EST) Narrative [facility] IMG INTERFACES - 01/24/2017 7:28 AM EDT This study is for PACS storage only and not for interpretation. us Van Dupont MD IMG OUTSIDE IMAGING W/OUT INTERP RETATION Final Result [facility] IMG INTERFACES documented in this encounter Visit Diagnoses Not on filedocumented in this encounter Additional Health Concerns Infection Onset Date Last Indicated Resolved Time CoV-Risk Comment:Per note documentation 10/31/2023 10/31/2023 2:50 PM EST CoV-Risk Comment:Per note documentation 11/07/2023 11/07/2023 9:26 PM EST CoV-Risk Comment:Per note documentation 11/20/2023 11/21/2023 3:00 PM EDT Metapneumovirus 11/21/2023 11/21/2023 11/28/2023 1 :22 AM EDT documented as of this encounter Additional Source Comments The information contained in this document represents components of the legal health record. It is not the complete legal health record.[facility]
--- OUTSIDE RECORDS SUMMARY | 2015-12-10 23:00 | XMS_ITS | Encounter Summary ---
Author Organization [facility] Address [address] [employer] [facility] [address] [place] [address] Phone Care Team Providers Care Vice President Research Name Role Phone Unavailable Primary Care Provider Unavailabl e Reason for Visit * MRI/CAT Scan - Closed Specialty Diagnoses / Procedures Referred By Yasir t Referred To Contact Procedures MRI Outside Upper Extremity (No Interpretation) Van Dupont MD [address] [place] [address] Phone: tel: fax: mailto:[email or web address] du Referral ID Status Reason Start Date Expiration Date Visits Re quested Visits Authorized [id number] Closed 02/06/2017 02/06/2018 1 1 Encounter Details Date Type Department Care Team (Late st Contact Info) Description 12/11/2015 Hospital Encounter [facility] [address] [place] [address] Van Dupont MD [address] [place] [address] [email or web address] u Social History Tobacco Use Types [...] 10/31/2023 4:32 PM Shyanne Owens RN * [place] Suicide Severity Rating Scale (Screener/Recent Self-Report) Question [...] st Contact Info) Description 05/13/2025 Procedure Pass [facility] for Outpatient Care - MRI [address] [place] [address], 6th [place] [address] 09/09/2025 10:30 AM EST Blood Draw [facility] Malignancies [address] [facility], 9th Floor, [address] [place] [address] Van Dupont MD [address] [address] [email or web address] 09/09/2025 10:50 AM EST Appointment [facility] for Outpatient Care - MRI [address] [facility], 6th [place] [address] Van Dupont MD [address] [address] [email or web address] 09/09/2025 11:30 AM EST Office Visit [facility] for Hematology Malignancies [address] [facility], 9th Floor, [address] [place] [address] Van Dupont MD [address] [address] [email or web address], [email or web address] [email or web address] documented as of this encounter Goals Goal Patient Goal Type Associated Problems Recent Progress Patient-Stated? Author Acute Care Plan Acute Care Plan No Carolina Jackson RN Note: Cellular therapy/ Immune Effector Cell patient. Patient received cellular therapy product Amol-reese on 11/01/23 Page the on-call Immune Effector Cell Attending via www.[employer]RAF[employer] Login [facility] Page immediately if patient presents within the [...] team evaluation. Patients should be admitted to [place] [address] to the Immune Effector Cell Service. documented as of this encounter Procedures Procedure Name Priority Date/Time Associated Diagnosis Comments MRI UPPER EXTREMITY OUTSIDE (NO INTERPRETATION) Routine 12/11/2015 12:00 AM EDT documented in this encounter Results * MRI Outside Upper Extremity (No Interpretation) (12/11/2015 12:00 AM EDT) Narrative [facility] IMG INTERFACES - 02/06/2017 4:03 PM EDT This study is for PACS storage only and not for interpretation. us Van Dupont MD IMG OUTSIDE IMAGING W/OUT INTERP RETATION Final Result [facility] IMG INTERFACES documented in this encounter Visit [...] It is not the complete legal health record.[facility]
--- OUTSIDE RECORDS SUMMARY | 2016-11-22 23:00 | XMS_ITS | Encounter Summary ---
Author Organization [facility] Address [address] [facility] [address] [place] [address] Phone Care Team Providers Care Amf Mechanic Name Role Phone Unavailable Primary Care Provider Unavailabl e Reason for Visit * MRI/CAT Scan - Closed Specialty Diagnoses / Procedures Referred By Yasir t Referred To Contact Procedures MRI Outside Upper Extremity (No Interpretation) Van Dupont MD [address] [place] [address] Phone: tel: fax: mailto:[email or web address]. du Referral ID Status Reason Start Date Expiration Date Visits Re quested Visits Authorized [id number] Closed 02/06/2017 02/06/2018 1 1 Encounter Details Date Type Department Care Team (Late st Contact Info) Description 11/23/2016 Hospital Encounter [facility] [address] [place] [address] Vna Dupont MD [address] [place] [address] [email or web address] u Social History Tobacco Use [...] 10/31/2023 4:32 PM Shyanne Owens RN * [place] Suicide Severity Rating Scale (Screener/Recent Self-Report) Question [...] st Contact Info) Description 05/13/2025 Procedure Pass [email or web address] for [facility] - MRI [address] [place] [address], 6th [place] [address] 09/09/2025 10:30 AM EST Blood Draw [facility] [address] [facility], 9th Floor, [address] [place] [address] Van Dupont MD [address] [address] [email or web address] 09/09/2025 10:50 AM EST Appointment [email or web address] for [facility]patient Care - MRI [address] [facility], 6th [place] [address] Van Dupont MD [address] [address] [email or web address] 09/09/2025 11:30 AM EST Office Visit [facility] [address] [facility], 9th Floor, [address] [place] [address] Van Dupont MD [address] [address] [email or web address] documented as of this encounter Goals Goal Patient Goal Type Associated Problems Recent Progress Patient-Stated? Author Acute Care Plan Acute Care Plan No Carolina Jackson RN Note: Cellular therapy/ Immune Effector Cell patient. Patient received cellular therapy product Amol-reese on 11/01/23 Page the on-call Immune Effector Cell Attending via www.Webcrumbz Login [facility] Page immediately if patient presents within [...] team evaluation. Patients should be admitted to [place] [address] to the Immune Effector Cell Service. documented as of this encounter Procedures Procedure Name Priority Date/Time Associated Diagnosis Comments MRI UPPER EXTREMITY OUTSIDE (NO INTERPRETATION) Routine 11/23/2016 12:00 AM EDT documented in this encounter Results * MRI Outside Upper Extremity (No Interpretation) (11/23/2016 12:00 AM EDT) Narrative [facility] INTERFAC[facility] - 02/06/2017 2:09 PM EDT This study is for PACS storage only and not for interpretation. us Van Dupont MD IMG OUTSIDE IMAGING W/OUT INTERP RETATION Final Result [facility] documented in this encounter Visit [...] It is not the complete legal health record.[facility]
--- OUTSIDE RECORDS SUMMARY | 2018-01-08 23:00 | XMS_ITS | Encounter Summary ---
Author Organization [facility] Address [address] [facility] [address] [place] [address] Phone Care Team Providers Care Dosimetrist Name Role Phone Unavailable Primary Care Provider Unavailabl e Reason for Visit * MRI/CAT Scan - Closed Specialty Diagnoses / Procedures Referred By Yasir t Referred To Contact Procedures MRI Spine (Bone) Outside (No Interpretation) Van Dupont MD [address] [place] [address] Phone: tel: fax: mailto:[email or web address] Referral ID Status Reason Start Date Expiration Date Visits Re quested Visits Authorized [id number] Closed 01/21/2018 01/21/2019 1 1 Encounter Details Date Type Department Care Team (Late st Contact Info) Description 01/09/2018 Hospital Encounter [facility] General Imaging [address] [place] [address] Van Dupont MD [address] [place] [address] [email or web address] u Social History Tobacco Use Types [...] 10/31/2023 4:32 PM Shyanne Owens RN * [place] Suicide Severity Rating Scale (Screener/Recent Self-Report) Question [...] st Contact Info) Description 05/13/2025 Procedure Pass [facility] for [facility]patient Care - MRI [address] [place] [address], 6th [place] [address] 09/09/2025 10:30 AM EST Blood Draw [facility] [address] [facility], 9th Floor, [address] [place] [address] Van Dupont MD [address] [address] [email or web address] 09/09/2025 10:50 AM EST Appointment [facility] - MRI [address] [facility], 6th [place] [address] Van Dupont MD [address] [address] [email or web address] 09/09/2025 11:30 AM EST Office Visit [facility] Malignancies [address] [facility], 9th Floor, [address] [place] [address] Van Dupont MD [address] [address] [email or web address] documented as of this encounter Goals Goal Patient Goal Type Associated Problems Recent Progress Patient-Stated? Author Acute Care Plan Acute Care Plan No Carolina Jackson RN Note: Cellular therapy/ Immune Effector Cell patient. Patient received cellular therapy product Amol-reese on 11/01/23 Page the on-call Immune Effector Cell Attending via www.Buzzoola Login [facility] Page immediately if patient presents within the [...] team evaluation. Patients should be admitted to [place] to the Immune Effector Cell Service. documented as of this encounter Procedures Procedure Name Priority Date/Time Associated Diagnosis Comments MRI SPINE MUSCULOSKELETAL FOCUS OUTSIDE (NO INTERPRETATION) Routine 01/09/2018 12:00 AM EDT documented in this encounter Results * MRI Spine (Bone) Outside (No Interpretation) (01/09/2018 12:00 AM EDT) Narrative [facility] INTERFACES - 01/21/2018 2:08 PM EDT This study is for PACS storage only and not for interpretation. us Van Dupont MD IMG OUTSIDE IMAGING W/OUT INTERP RETATION Final Result [facility] INTERFACES documented in this encounter Visit [...] It is not the complete legal health record.[facility]
--- OUTSIDE RECORDS SUMMARY | 2018-01-09 23:00 | XMS_ITS | Encounter Summary ---
Author Organization [facility] Address [address] [place] [address] Phone Care Team Providers Care Learning And Development Specialist Name Role Phone Unavailable Primary Care Provider Unavailabl e Encounter Details Date Type Department Care Team (Late st Contact Info) Description 01/10/2018 Hospital Encounter [facility] General Imaging [address] [place] [address] Van Dupont MD [address] [place] [address] [email or web address]. u Social History Tobacco Use Types Packs/Day [...] Author No Risk Indicated 10/31/2023 4:32 PM Shaynne Owens RN * [place] Suicide Severity Rating Scale (Screener/Recent Self-Report) Question [...] [facility] - MRI [address] [facility], 6th [place] [address] 09/09/2025 10:30 AM EST Blood Draw [facility] Malignancies [address] [facility], 9th Floor, [address] [place] [address] Van Dupont MD [address] [facility] [address] [place] [address] [email or web address]. [email or web address] 09/09/2025 10:50 AM EST Appointment [facility] - MRI [address] [facility], 6th [place] [address] Van Dupont MD [address] [place] [address] [email or web address] 09/09/2025 11:30 AM EST Office Visit [facility] Hematology Malignancies [address] [facility], 9th Floor, [address] [place] [address] Van Dupont MD [address] [facility] [address] [place] [address] [email or web address] documented as of this encounter Goals Goal Patient Goal Type Associated Problems Recent Progress Patient-Stated? Author Acute Care Plan Acute Care Plan No Carolina Jackson RN Note: Cellular therapy/ Immune Effector Cell patient. Patient received cellular therapy product Amol-reese on 11/01/23 Page the on-call Immune Effector Cell Attending via www[employer] Login [facility] Page immediately if patient presents within [...] team evaluation. Patients should be admitted to [place] [address] to the Immune Effector Cell Service. documented as of this encounter Procedures Procedure Name Priority Date/Time Associated Diagnosis Comments XR UPPER EXTREMITY OUTSIDE (NO INTERPRETATION) Routine 01/10/2018 12:00 AM EDT documented in this encounter Results * XR Upper Extremity Outside (No Interpretation) (01/10/2018 12:00 AM EDT) Narrative [facility] IMG INTERFACES - 01/21/2018 2:05 PM EDT This study is for PACS storage only and not for interpretation. us Van Dupont MD IMG OUTSIDE IMAGING W/OUT INTERP RETATION Final Result [facility] IMG INTERFACES documented in this encounter Visit [...]
--- OUTSIDE RECORDS SUMMARY | 2018-01-09 23:15 | XMS_ITS | Encounter Summary ---
Author Organization [facility] Address [address] [facility] [address] [place] [address] Phone Care Team Providers Care Business Change Manager Name Role Phone Unavailable Primary Care Provider Unavailabl e Encounter Details Date Type Department Care Team (Late st Contact Info) Description 01/10/2018 12:15 AM EDT Hospital En[facility] [address] [place] [address] Van Dupont MD [address] [place] [address] [email or web address] Social History Tobacco Use Types Packs/Day Years [...] 10/31/2023 4:32 PM Shyanne Owens RN * [place] Suicide Severity Rating Scale (Screener/Recent Self-Report) Question [...] [place] [facility] - MRI [address] [facility], 6th [place] [address] 09/09/2025 10:30 AM EST Blood Draw [facility] Malign[place] [address] [facility], 9th Floor, [address] [place] [address] Van Dupont MD 55 [facility] [address] [place] [address] [email or web address]. [email or web address] 09/09/2025 10:50 AM EST Appointment [facility] - MRI [address] [facility], 6th [place] [address] Van Dupont MD [address] [facility] [address] [place] [address] [email or web address] 09/09/2025 11:30 AM EST Office Visit [facility]ology Malignancies [address] [facility], 9th Floor, [address] [place] [address] Van Dupont MD [address] [facility] [address] [place] [address] [email or web address] documented as of this encounter Goals Goal Patient Goal Type Associated Problems Recent Progress Patient-Stated? Author Acute Care Plan Acute Care Plan No Carolina Jackson RN Note: Cellular therapy/ Immune Effector Cell patient. Patient received cellular therapy product Amol-reese on 11/01/23 Page the on-call Immune Effector Cell Attending via www.[employer] Login [facility] Page immediately if patient presents within [...] Patients should be admitted to [place] [address] to the Immune Effector Cell Service. documented as of this encounter Procedures Procedure Name Priority Date/Time Associated Diagnosis Comments XR CHEST OUTSIDE (NO INTERPRETATION) Routine 01/10/2018 12:15 AM EDT documented in this encounter Results * XR Chest Outside (No Interpretation) (01/10/2018 12:15 AM EDT) Narrative [facility] [place]G [place]ES - 01/21/2018 2:06 PM EDT This study is for PACS storage only and not for interpretation. us Van Dupont MD IMG OUTSIDE IMAGING W/OUT INTERP RETATION Final Result [facility] [place] INTERFACES documented in this encounter Visit Diagnoses [...] is not the complete legal health record.[facility]
--- NOTE | 2025-07-23 15:11 | A.OFFVIS_ITS ---
Vital Signs 07/23/25 15:20 Height 5 ft 3 in Weight 162 lb 14.746 oz BMI 28.9 BP 140/72 H Blood Pressure Location Lt brachial Position Sitting Pulse 56 Pulse Source Pulse Oximeter Pulse Oximetry (%) 97 Oxygen Delivery Method Room Air Intake Visit Reasons: Joint Pain Intake Note: Patient presents for joint pain follow up. Allergies oxycodone (From OXYCONTIN) Allergy (Mild, Verified 07/23/25 15:18) PRURITUS, severe itching adhesive tape Allergy (Unknown, Verified 07/23/25 15:18) BLISTERS cephalexin (Keflex) Allergy (Unknown, Verified 07/23/25 15:18) hives doxycycline (DOXYCYCLINE) Adverse Reaction (Intermediate, Verified 07/23/25 15:18) STOMACH PAINS HPI Comments Details: Patient is a 89-year-old female with hypertension, hyperlipidemia, peripheral neuropathy, multiple myeloma, chronic pain and polyarticular OA Interval History: Patient last seen 03/07/[address] Caal - New patient visit - evaluation for polyarthralgias in the setting of multiple myeloma and chemotherapy/car T therapy - no evidence of inflammatory disease, assessed as osteoarthritis - PRN follow up Today - Not on DMARDs - Follows with Oncology and has been having body pain so she - Has had light therapy, acupuncture, steroid injections (hands, knees), Chiropracter - Follows with palliative and given buprenorphine patch which has alleviated her pain Rheumatologic History: Initial History: This is an 79-year-old female with history of multiple myeloma who presents for follow-up. According to patient she was diagnosed with multiple myeloma about 8 years ago and she has been on different chemotherapeutic therapies. Per patient she had been on Decadron almost 8 years, different doses. September of 2023 she had car T treatment. Since she has been off of the Decadron. He was evaluated by Dr. Horn for bilateral knee pain. And at that time patient was having multiple joint pain. Gel injections were discussed however Dr. Horn wanted her to get full rheumatology evaluation prior to any additional injections. She also developed right hand and wrist pain and swelling. She was evaluated by Dr. Oliver 01/2024 for right hand and wrist pain. She received radiocarpal injection as well as right thumb CMC joint injection with relief. The injection also helped her knee pain. But she started having left buttock pain. She has been doing physical therapy without much improvement. She received a couple of doses of IVIG but she developed headaches. She is unaware of any family history of an autoimmune rheumatic disease. Denies any history of DVT/PE. Denies any skin rashes Current Rheumatology Medication(s): [facility] Medical History Osteoarthritis of knees, bilateral Abnormal finding on MRI of brain Long-term current use of intravenous immunoglobulin (IVIG) Tinea pedis Urinary incontinence, urge Urinary frequency Urinary urgency TSH elevation Nasal congestion Hospital discharge follow-up Sepsis Pneumonia Acute exacerbation of chronic obstructive pulmonary disease Chronic cough Generalized anxiety disorder Right low back pain Hand pain Dysphagia, pharyngoesophageal phase Costochondritis Dyspnea on exertion COPD (chronic obstructive pulmonary disease) Chronic diarrhea Anxiety Cataract Bladder cancer GERD (gastroesophageal reflux disease) Asthma IBS (irritable bowel syndrome) Hypertension Multiple myeloma Surgical History History of oral surgery History of esophagogastroduodenoscopy (EGD) H/O colonoscopy History of eyelid surgery History of tonsillectomy H/O wrist surgery H/O eye surgery History of arthroscopy of both knees H/O rotator cuff surgery H/O cardiac catheterization Family History Father Pancreatic cancer Diabetes Stroke Mother No problems noted. Sister Diabetes Son No problems noted. Social History Household Members: [facility] Are you a primary health careers instructor to a significant other at home: No Do you presently have visiting nurse or other home services: Yes ([facility]) Alcohol intake: never Patient Tobacco Use Status: Former Tobacco user Tobacco use type: Cigarette e-Cigarette/Vaping Use: Never Used Second Hand Smoke Exposure: No Advance Directives Date on File: 07/20/23 service: No Current occupational status: retired Cognitive needs: No Hearing needs: No Vision needs: Yes (Glasses) Review of Systems Narrative Review of Systems Constitutional: Denies fever, chills, weight loss ENT: Denies vision changes, eye pain or eye redness, dental caries, dry mouth GI: Denies nausea, vomiting, diarrhea, abdominal pain, change in BM Pulm: Denies SOB, GAUTAM, hemoptysis, wheezing Cards: Denies chest pain, palpitations Skin: Denies Raynaud's, rash, nail changes, photosensitivity, FILM CLEANER: Denies headaches, weakness, paresthesias, recurrent falls MSK: as per HPI All other systems reviewed and are unremarkable except noted above Physical Exam Exam Exam: Vital signs reviewed Physical Examination CONSTITUITIONAL Patient alert and cooperative. Well appearing and in no apparent painful distress MSK Hands * Right Hand: Able to make a fist. No swelling or tenderness to palpation of the MCPs, PIPs or DIPs. * Left Hand: Able to make a fist. No swelling or tenderness to palpation of the MCPs, PIPs or DIPs. * Herbedens nodes noted bilaterally Wrists * Right Wrist: Full ROM to flexion and extension. No swelling or TTP * Left Wrist: Full ROM to flexion and extension. No swelling or TTP Elbows * Right Elbow: Full ROM. No swelling or TTP. No TTP of the medial epicondyle. No TTP of the lateral epicondyle * Left Elbow: Full ROM. No swelling or TTP. No TTP of the medial epicondyle. No TTP of the lateral epicondyle Shoulders * Right shoulder: Full ROM. No swelling noted. No TTP of the AC joint. No TTP of the subacromial bursa. No TTP of the posterior shoulder * Left shoulder: Full ROM. No swelling noted. No TTP of the AC joint. No TTP of the subacromial bursa. No TTP of the posterior shoulder Knees * Right knee: Good ROM. No swelling noted. No TTP of the knee joint line. No TTP of pes anserine bursa * Left knee: Good ROM. No swelling noted. No TTP of the knee joint line. No TTP of pes anserine bursa. * Crepitations felt bilaterally Ankles * Right ankle: Good ankle dorsiflexion and plantar flexion. No swelling. No TTP of the ankle joint * Left ankle: Good ankle dorsiflexion and plantar flexion. No swelling. No TTP of the ankle joint Feet * Right foot: Negative squeeze test * Left foot: Negative squeeze test Tender points? * No tenderness to palpation of the bilateral trapezius, supraspinatus, anterior costochondral junctions, bilateral suboccipital muscle insertions SKIN No rashes Vital Signs: Last Vital Signs Pulse 56 11//25 15:20 BP 140/72 H 07/23/25 15:20 Pulse Ox 97 07/23/25 15:20 Oxygen Delivery Method Room Air 07/23/25 15:20 BMI result Body Mass Index 28.9 Results Reviewed Results Reviewed: Laboratory Tests 05/25/25 14:33 WBC 5.8 RBC 4.41 Hgb 12.6 Hct 38.0 Plt Count 136 L Sodium 143 Potassium 4.5 Chloride 110 H Carbon Dioxide 29 BUN 18 H Creatinine 0.97 AST 37 H ALT 31 Assessment & Plan Assessment & Plan (1) Polyarticular osteoarthritis: Code(s): M15.9 - Polyosteoarthritis, unspecified Plan: #Polyarticular OA Patient is an 80-year-old female with multiple myeloma status post chemotherapy and car T cell therapy here today for evaluation of polyarthralgias. Examined history is consistent with polyarticular osteoarthritis. No evidence of inflammatory arthritis on examination today. Discuss this with the patient and . She currently is failing pain-free after getting pain patch from pain management. She is to continue this unchanged to continue her follow up with pain management. Plan - Continue follow up with pain management - No further recommendations from rheumatology at this time - RTC prn Plan This is my first visit with this patient. I spent 30 minutes reviewing the record and labs, taking a history, examining the patient, discussing the treatment plan, and documenting in the medical record Coding Level of Care Code Est Pt Level 3 (50962) Complex visit Add On G2211 Diagnoses Polyarticular osteoarthritis M15.9
[2025-07-23 15:20] VITALS: BP 140/72; PULSE 56; O2SAT 97; BMI 28.9
--- OUTSIDE RECORDS SUMMARY | 2025-07-23 19:50 | XMS_ITS | Encounter Summary ---
Author Organization [facility] Address [address] [employer] [address] [address] Phone Care Team Providers Care Cognos Analyst Name Role Phone Debra Muniz MD Unavailable Mohinder Fan MD Unavailable [phone] Van Dupont MD Unavailable Markos James MD Primary Care Provider Arsh Mata MD Unavailable [phone] Eufemia Caro RN Unavailable [email or web address] [email or web address] Encounter Details Date Type Department Care Team (Late st Contact Info) Description 09/11/2023 Procedure Pass [facility] [address] [place] [address] Social History Tobacco Use Types Packs/Day Years [...] st Contact Info) Description 05/13/2025 Procedure Pass [facility] - MRI 32 [facility], 6th [place] [address] 09/09/2025 10:30 AM EST Blood Draw [facility] Malignancies [address] [facility], 9th Floor, [address] [place] [address] Van Dupont MD [address] [address] [email or web address] 09/09/2025 10:50 AM EST Appointment [facility] - MRI 32 [facility], [address]th [place] [address] Van Dupont MD [address] [address] [email or web address] 09/09/2025 11:30 AM EST Office Visit [facility] Malignancies [address] [facility], 9th Floor, [address] [place] [address] Van Dupont MD [address] [address] [email or web address] documented as of this encounter Visit Diagnoses [...] documented as of this encounter Care Teams Cognos Analyst Relationship Specialty Start Date End Date Markos James MD [address] [facility] [address] [facility] [address] [place] [phone] PCP - General Internal Medicine 12/07/20 Debra Muniz MD [address] [place] [address] Medical Oncology 05/27/18 Mohinder Fan MD [address] [place] [address] Consulting Provider Geriatric Psychiatry 05/27/18 Van Dupont MD 55 [facility] [address] [place] [address] [email or web address] Primary Oncologist Medical Oncology 10/14/18 Arsh Mata MD 55 [facility] [address] [place] [address] [email or web address] Treatment Team Hematology and Oncology 10/16/23 Eufemia Caro, NIKOLAS 55 [place] [address] [email or web address] Associate Infusion Nurse 10/16/23 documented as of this encounter Additional Source Comments The information contained in this document represents components of the legal health record. It is not the complete legal health record.[facility]
--- OUTSIDE RECORDS SUMMARY | 2025-07-23 19:50 | XMS_ITS | Encounter Summary ---
Author Organization [facility] Address [address] [facility] [address] [place] [address] Phone Care Team Providers Care Loop Drier Operator Name Role Phone Debra Muniz MD Unavailable Mohinder Fan MD Unavailable [phone] Van Dupont MD Unavailable Markos James MD Primary Care Provider [phone] Arsh Mata MD Unavailable Eufemia Caro RN Unavailable [email or web address] Reason for Visit * Reason Comments Medication Refill Encounter Details Date Type Department Care Team ([facility] st Contact Info) Description 12/12/2024 Refill [facility] Psychiatry Oncology [address] [place] [address], 10th Floor, [address] [place] [address] Sri Gandhi MD [address] [place] [address] [address] [place] [address] [email or web address] Medication Refill Social History Tobacco Use Types [...] st Contact Info) Description 05/13/2025 Procedure Pass [facility] for [facility]patient Care - MRI 32 [facility], 6th [place] [address] 09/09/2025 10:30 AM EST Blood Draw [facility] Center for Hematology Malignancies [address] [facility], 9th Floor, [address] [place] [address] Van Dupont MD 55 [facility] [address] [place] [address] [email or web address] 09/09/2025 10:50 AM EST Appointment [facility] for [facility]patient Care - MRI 32 [facility], 6th [place] [address] Van Dupont MD 55 [facility] [address] [place] [address] [email or web address] 09/09/2025 11:30 AM EST Office Visit [facility] Center for Hematology Malignancies [address] [facility], 9th Floor, [address] [place] [address] Van Dupont MD [address] [facility] [address] [place] [address] [email or web address] documented as of this encounter Goals Goal Patient Goal Type Associated Problems Recent Progress Patient-Stated? Author Acute Care Plan Acute Care Plan No Carolina Jackson RN Note: Cellular therapy/ Immune Effector Cell patient. Patient received cellular therapy product Amol-reese on 11/01/23 Page the on-call Immune Effector Cell Attending via www.[employer] Login [facility] Page immediately if patient presents [...] team evaluation. Patients should be admitted to [place] [address] to the Immune Effector Cell Service. documented as of this encounter Visit Diagnoses Diagnosis Posttraumatic stress disorder documented in this encounter Care Teams Loop Drier Operator Relationship Specialty Start Date End Date Jacob, Markos Awan MD [address] [place] [phone] PCP - General Internal Medicine 12/07/20 Debra Muniz MD [address] [place] [address] Medical Oncology 05/27/18 Mohinder Fan MD 103 [facility] [place] [address] Consulting Provider Geriatric Psychiatry 05/27/18 Van Dupont MD 55 [facility] [address] [place] [address] [email or web address] Primary Oncologist Medical Oncology 10/14/18 Arsh Mata MD 55 [facility] [address] [place] [address] [email or web address] Treatment Team Hematology and Oncology 10/16/23 Eufemia Caro, NIKOLAS 55 [place] [address] [email or web address] Associate Infusion Nurse 10/16/23 documented as of this encounter Additional Source Comments The information contained in this document represents components of the legal health record. It is not the complete legal health record.[facility]
--- OUTSIDE RECORDS SUMMARY | 2025-07-23 19:50 | XMS_ITS | Encounter Summary ---
Author Organization [facility] Address [address] [employer] [facility] [address] [place] [address] Phone Care Team Providers Care Paediatric Physiotherapist Name Role Phone Debra Muniz MD Unavailable Mohinder Fan MD Unavailable [phone] Van Dupont MD Unavailable Markos James MD Primary Care Provider Arsh Mata MD Unavailable [phone] Eufemia Caro RN Unavailable MELISSA [email or web address] Encounter Details Date Type Department Care Team (Late st Contact Info) Description 09/13/2017 Procedure Pass [facility] [address] [place] [address] Social History Tobacco Use Types Packs/Day Years [...] st Contact Info) Description 05/13/2025 Procedure Pass [facility] for [facility]patient Care - MRI 32 [facility], 6th [place] [address] 09/09/2025 10:30 AM EST Blood Draw [facility] Malignancies 32 [facility], 9th Floor, [address] [place] [address] Van Dupont MD [address] [address] [email or web address] 09/09/2025 10:50 AM EST Appointment [facility] for [facility]patient Care - MRI 32 [facility], 6th [place] [address] Van Dupont MD [address] [place] [address] [email or web address] 09/09/2025 11:30 AM EST Office Visit [facility] Malignancies [address] [facility], 9th Floor, [address] [place] [address] Vna Dupont MD [address] [address] [email or web address] documented as of this encounter Visit [...] documented as of this encounter Care Teams Paediatric Physiotherapist Relationship Specialty Start Date End Date Markos James MD [address] [place] [phone] PCP - General Internal Medicine 12/07/20 Debra Muniz MD [address] [place] [address] Medical Oncology 05/27/18 Mohinder Fan MD 103 [place] [address] Consulting Provider Geriatric Psychiatry 05/27/18 Van Dupont MD 55 [facility] [address] [place] [address] [email or web address] Primary Oncologist Medical Oncology 10/14/18 Arsh Mata MD 55 [facility] [address] [place] [address] [email or web address] Treatment Team Hematology and Oncology 10/16/23 Eufemia Caro RN 55 [place] [address] [email or web address] Associate Infusion Nurse 10/16/23 documented as of this encounter Additional Source Comments The information contained in this document represents components of the legal health record. It is not the complete legal health record.[facility]
--- OUTSIDE RECORDS SUMMARY | 2025-07-23 19:50 | XMS_ITS | Encounter Summary ---
Author Organization [facility] Address [address] [facility] [address] [place] [address] Phone Care Team Providers Care Copy Holder Name Role Phone Debra Muniz MD Unavailable Mohinder Fan MD Unavailable [phone] Van Dupont MD Unavailable Markos James MD Primary Care Provider Arsh Mata MD Unavailable Eufemia Caro RN Unavailable [email or web address] Encounter Details Date Type Department Care Team (Late st Contact Info) Description 04/11/2024 Procedure Pass [facility] - MRI [address] [facility], 6th [place] [address] Social History Tobacco Use Types Packs/Day Years [...] st Contact Info) Description 05/13/2025 Procedure Pass [facility] - MRI [address] [place] [address], [address] [place] [address] 09/09/2025 10:30 AM EST Blood Draw [facility] Malignancies [address] [facility], 9th Floor, [address] [place] [address] Van Dupont MD [address] [address] [email or web address] 09/09/2025 10:50 AM EST Appointment [facility] - MRI [address] [facility], 6th [place] [address] Van Dupont MD [address] [address] [email or web address] 09/09/2025 11:30 AM EST Office Visit [facility] Center for Hematology Malignancies [address] [facility], 9th Floor, [address] [place] [address] Van Dupont MD [address] [place] [address] [email or web address] documented as of this encounter Goals Goal Patient Goal Type Associated Problems Recent Progress Patient-Stated? Author Acute Care Plan Acute Care Plan No Carolina Jackson RN Note: Cellular therapy/ Immune Effector Cell patient. Patient received cellular therapy product Amol-reese on 11/01/23 Page the on-call Immune Effector Cell Attending via www.[employer] Login [facility] Page immediately if patient presents within the [...] team evaluation. Patients should be admitted to [place] [address] to the Immune Effector Cell Service. documented as of this encounter Visit Diagnoses Not on filedocumented in this encounter Care Teams Copy Holder Relationship Specialty Start Date End Date Markos James MD [address] [place] [phone] PCP - General Internal Medicine 12/07/20 Debra Muniz MD [address] [place] [address] Medical Oncology 05/27/18 Mohinder Fan MD [address] [place] [address] Consulting Provider Geriatric Psychiatry 05/27/18 Van Dupont MD [address] [place] [address] [email or web address] Primary Oncologist Medical Oncology 10/14/18 Arsh Mata MD [address] [facility] [address] [place] [address] Treatment Team Hematology and Oncology 10/16/23 Eufemia Caro, NIKOLAS 55 [place] [address] [email or web address] Associate Infusion Nurse 10/16/23 documented as of this encounter Additional Source Comments The information contained in this document represents components of the legal health record. It is not the complete legal health record.[facility]
--- OUTSIDE RECORDS SUMMARY | 2025-07-23 19:50 | XMS_ITS | Encounter Summary ---
Author Organization [facility] Address [address] [address] Phone Care Team Providers Care Hammer Driver Name Role Phone Debra Muniz MD Unavailable Mohinder Fan MD Unavailable [phone] Van Dupont MD Unavailable Markos James MD Primary Care Provider Arsh Mata MD Unavailable Eufemia Caro RN Unavailable [email or web address] Encounter Details Date Type Department Care Team (Late st Contact Info) Description 05/12/2024 Procedure Pass [address] [place] [address] Social History Tobacco Use Types Packs/Day Years [...] st Contact Info) Description 05/13/2025 Procedure Pass [facility] - MRI [address] [place] [address], [address] [place] [address] 09/09/2025 10:30 AM EST Blood Draw [facility] for [facility]ematology Malignancies [address] [facility], 9th Floor, [address] [place] [address] Van Dupont MD [address] [address] [email or web address] 09/09/2025 10:50 AM EST Appointment [facility] - MRI [address] [facility], 6th [place] [address] Van Dupont MD [address] [address] [email or web address] 09/09/2025 11:30 AM EST Office Visit [facility] for Hematology Malignancies [address] [facility], 9th Floor, [address] [place] [address] Van Dupont MD [address] [place] [address] [email or web address] documented as of this encounter Goals Goal Patient Goal Type Associated Problems Recent Progress Patient-Stated? Author Acute Care Plan Acute Care Plan No Carolina Jackson RN Note: Cellular therapy/ Immune Effector Cell patient. Patient received cellular therapy product Amol-reese on 11/01/23 Page the on-call Immune Effector Cell Attending via www.[employer] Login [facility] Page immediately if patient presents within the [...] team evaluation. Patients should be admitted to [place] [address] to the Immune Effector Cell Service. documented as of this encounter Visit Diagnoses Not on filedocumented in this encounter Care Teams Hammer Driver Relationship Specialty Start Date End Date Markos James MD [address] [place] [address] [place] [phone] PCP - General Internal Medicine 12/07/20 Debra Muniz MD [address] [place] [address] Medical Oncology 05/27/18 Mohinder Fan MD [address] [place] [address] Consulting Provider Geriatric Psychiatry 05/27/18 Van Dupont MD [address] [place] [address] [email or web address] Primary Oncologist Medical Oncology 10/14/18 Arsh Mata MD [address] [place] [address] [email or web address] Treatment Team Hematology and Oncology 10/16/23 Eufemia Caro, NIKOLAS 55 [place] [address] [email or web address] [email or web address] Associate Infusion Nurse 10/16/23 documented as of this encounter Additional Source Comments The information contained in this document represents components of the legal health record. It is not the complete legal health record.[facility]
--- OUTSIDE RECORDS SUMMARY | 2025-07-23 19:50 | XMS_ITS | Encounter Summary ---
Author Organization [facility] Address [address] [facility] [address] [place] [address] Phone Care Team Providers Care Audit Specialist Name Role Phone Debra Muniz MD Unavailable [phone] Mohinder Fan MD Unavailable [phone] Van Dupont MD Unavailable Markos James MD Primary Care Provider [phone] Arsh Mata MD Unavailable [phone] Eufemia Caro RN Unavailable [email or web address] [email or web address] Reason for Visit * Reason Comments Medication Refill Encounter Details Date Type Department Care Team ([facility] st Contact Info) Description 06/20/2025 Refill [facility] Psychiatry Oncology [address] [place] [address], 10th Floor, [address] [place] [address] Sri Gandhi MD [address] [place] [address] [address] [place] [address] [email or web address] Medication Refill Social History Tobacco Use Types [...] st Contact Info) Description 05/13/2025 Procedure Pass [facility] - MRI [address] [facility], 6th [place] [address] 09/09/2025 10:30 AM EST Blood Draw [facility] Center for Hematology Malignancies [address] [facility], 9th Floor, [address] [place] [address] Van Dupont MD 55 [facility] [address] [place] [address] [email or web address] 09/09/2025 10:50 AM EST Appointment [facility] - MRI [address] [facility], 6th [place] [address] Van Dupont MD 55 [facility] [address] [place] [address] [email or web address] 09/09/2025 11:30 AM EST Office Visit [facility] Center for Hematology Malignancies [address] [facility], 9th Floor, [address] [place] [address] Van Dupont MD [address] [facility] [address] [place] [address] [email or web address] documented as of this encounter Goals Goal Patient Goal Type Associated Problems Recent Progress Patient-Stated? Author Acute Care Plan Acute Care Plan No Carolina Jackson RN Note: Cellular therapy/ Immune Effector Cell patient. Patient received cellular therapy product Amol-reese on 11/01/23 Page the on-call Immune Effector Cell Attending via www.[employer] Login [facility] Page immediately if patient presents within the [...] Patients should be admitted to [place] [address] to the Immune Effector Cell Service. documented as of this encounter Visit Diagnoses Diagnosis Posttraumatic stress disorder documented in this encounter Care Teams Audit Specialist Relationship Specialty Start Date End Date Jacob, Markos Awan MD [address] [place] [phone] PCP - General Internal Medicine 12/07/20 Debra Muniz MD [address] [place] [address] Medical Oncology 05/27/18 Mohinder Fan MD [address] [facility] [place] [address] Consulting Provider Geriatric Psychiatry 05/27/18 Van Dupont MD [address] [facility] [address] [place] [address] [email or web address] Primary Oncologist Medical Oncology 10/14/18 Arsh Mata MD 55 [facility] [address] [place] [address] [email or web address] Treatment Team Hematology and Oncology 10/16/23 Eufemia Caro, NIKOLAS 55 [place] [address] [email or web address] Associate Infusion Nurse 10/16/23 documented as of this encounter Additional Source Comments The information contained in this document represents components of the legal health record. It is not the complete legal health record.[facility]
--- OUTSIDE RECORDS SUMMARY | 2025-07-23 19:50 | XMS_ITS | Encounter Summary ---
Author Organization [facility] Address [address] [facility] [address] [place] [address] Phone Care Team Providers Care Automatic Head Sawyer Name Role Phone Debra Muniz MD Unavailable Mohinder Fan MD Unavailable [phone] Van Dupont MD Unavailable Markos James MD Primary Care Provider Arsh Mata MD Unavailable [phone] Eufemia Caro RN Unavailable [email or web address] [email or web address] Encounter Details Date Type Department Care Team (Late st Contact Info) Description 01/21/2018 Procedure Pass [facility] [address] [place] [address] Social History Tobacco Use Types Packs/Day Years [...] st Contact Info) Description 05/13/2025 Procedure Pass [facility] - MRI 32 [facility] 6th [place] [address] 09/09/2025 10:30 AM EST Blood Draw [facility] Center for Hematology Malignancies 32 [facility], 9th Floor, [address] [place] [address] Van Dupont MD [address] [address] [email or web address] 09/09/2025 10:50 AM EST Appointment [facility] - MRI [address] [facility], 6th [place] [address] Van Dupont MD [address] [address] [email or web address] 09/09/2025 11:30 AM EST Office Visit [facility] Center for Hematology Malignancies [address] [facility], 9th Floor, [address] [place] [address] Van Dupont MD [address] [address] [email or web address] documented as of this encounter Visit [...] documented as of this encounter Care Teams Automatic Head Sawyer Relationship Specialty Start Date End Date Markos James MD [address] [facility] [place] [address] PCP - General Internal Medicine 12/07/20 Debra Muniz MD [address] [place] [address] Medical Oncology 05/27/18 Mohinder Fan MD 103 [place] [address] Consulting Provider Geriatric Psychiatry 05/27/18 Van Dupont MD 55 [facility] [address] [place] [address] [email or web address] Primary Oncologist Medical Oncology 10/14/18 Arsh Mata MD 55 [facility] [address] [place] [address] [email or web address] Treatment Team Hematology and Oncology 10/16/23 Eufemia Caro, NIKOLAS 55 [place] [address] [email or web address] Associate Infusion Nurse 10/16/23 documented as of this encounter Additional Source Comments The information contained in this document represents components of the legal health record. It is not the complete legal health record.[facility]
--- OUTSIDE RECORDS SUMMARY | 2025-07-23 19:50 | XMS_ITS | Clinical Summary ---
Author Organization [address] [facility] Address [address] [place] [address] Phone Care Team Providers Care Water Attendant Name Role Phone Markos James MD Primary Care Provider [phone] Allergies Active Allergy Reactions Criticality Noted Date [...] (PROTONIX) 40 mg EC tablet 09/25/2023 Active albuterol HFA (PROAIR HFA ; PROVENTIL HFA ; VENTOLIN HFA) 90 mcg/actuation inhaler Inhale 2 puffs by mouth every 6 hours as needed. Active amLODIPine (NORVASC) 5 mg tablet Take 1 tablet (5 mg total) by mouth. 03/09/2021 Active atorvastatin (LIPITOR) 20 mg tablet Take 1 tablet (20 mg total) by mouth daily. 11/08/2023 Active desvenlafaxine succinate (PRISTIQ) 25 mg 24 hr tablet Take 1 tablet (25 mg total) by mouth 1 (one) time each day. Active butalbital-acet aminophen-caffe ine (FIORICET, ESGIC) 50-325-40 mg per tablet Take 1 tablet by mouth every 4 (four) hours if needed for headaches. Max Daily Amount: 6 tablets Active metoprolol tartrate (LOPRESSOR) 50 mg tablet Take 1 tablet (50 mg total) by mouth 2 (two) times a day. Active cyanocobalamin (VITAMIN B-12) 1,000 mcg tablet Take 1 tablet (1,000 mcg total) by mouth 1 (one) time each day. Active Hospital, Clinic, or Other Facility Administered Medication Ordered Dose Route Frequency Start Date End Date Status lidocaine (XYLOCAINE) 1 % injection 1 mLIndications:Arthri tis of right wrist 1 mL Once PRN Procedure 07/10/2025 07/10/2025 Ended lidocaine (XYLOCAINE) 1 % injection 0.5 mLIndications:CMC arthritis .5 mL Once PRN Procedure 07/10/2025 07/10/2025 Ended triamcinolone acetonide (KENALOG-40) 40 mg/mL injection 20 mgIndications:Arthri tis of right wrist 20 mg Once PRN Procedure 07/10/2025 07/10/2025 Ended triamcinolone acetonide (KENALOG-40) 40 mg/mL injection 20 mgIndications:CMC arthritis 20 mg Once PRN Procedure 07/10/2025 07/10/2025 Ended Active Problems Problem Noted Date Diagnosed Date Carotid artery stenosis without cerebral infarct ion 07/10/2025 Right wrist pain 07/10/2025 CMC arthritis 07/10/2025 Posttraumatic stress disorder 08/18/2022 Multiple myeloma ([facility] V24, [facility] V28) 06/0 02/2017 Encounters Date Type Department Care Team Description 07/10/2025 10:45 AM EST Office Visit Orthopedic Surgery - [place] [address] [facility] [address] [place] [address] Simi Oliver MD Arthritis of right wrist (Primary Dx); [facility]MC arthritis 07/08/[address] [facility] - Main Lab [address] [facility] [place] [address] Tyrone Taylor DMD Granuloma and granuloma-like lesions of oral mucosa from Last 3 Months Surgical History Surgery [...] Health Maintenance Due Date Last Done Comments Falls Risk Assessment 08/05/2022 Medicare Annual Wellness Visit 08/05/2022 Osteoporosis Screening (Bone Density Screening) 08/05/2022 Social Influencers of Health Screening 08/05/2022 Depression Screening 09/03/2024 Influenza Vaccine (#1) 2025 , 06/18/2023, 06/07/2022, Additional history exists COVID-19 Vaccine (9 - Moderna risk season) 2025 06/21/2025, 05/27/2024, 06/18/2023, Additional history exists Cholesterol Screening (Lipid Panel) 09/18/2028 09/18/2023 DTaP,Tdap,and Td Vaccines (2 - Td or Tdap) 12/04/2034 12/04/2024 Pneumococcal Vaccine: 50+ Years Completed 10/07/2018, 01/15/2017 RSV Immunization Adult Patients Completed 07/14/2023 Zoster Vaccines Completed 04/30/2025, 02/13/2025 [...] Name Priority Date/Time Associated Diagnosis Comments XR WRIST 3+ VIEWS RIGHT Routine 07/10/2025 11:11 AM EST Right wrist pain [place] ARTHROCENTESIS/ASPIRA TION/INJECTION SMALL JOINT/BURSA WO U/S GUIDANCE Routine 07/10/2025 10:45 AM EST CMC arthritis [place] ARTHROCENTESIS/ASPIRA TION/INJECTION INTERMEDIATE JOINT/BURSA WO U/S GUID Routine 07/10/2025 10:45 AM EST Arthritis of right wrist TISSUE EXAM Routine 07/07/2025 Granuloma and granuloma-like lesions of oral mucosa from Last 3 Months Results * XR Wrist 3+ Views Right (07/10/2025 11:11 AM EST) Anatomical Region Laterality Modality Upper Extremities, Wrist Right Compute d Radiography Narrative 07/10/2025 2:27 PM EST AP, lateral, oblique of the right wrist was obtained on 07/10/2025. There is 1 set of prior images from January 2024. There are no obvious fractures, lytic lesions, or unusual calcifications. The patient has some generalized osteopenia. There is evidence of STT arthritis with joint space narrowing and sclerosis and subchondral cyst formation. The basal joint also is similarly arthritic. There is some narrowing at the radial scaphoid interval. Patient has a type II lunate along with some sclerosis and wear at the proximal pole of the hamate. And most notably there is narrowing and bony contact between the lunate and capitate and there is sclerosis. Patient is ulnar neutral variant. There is a subchondral cyst within the ulnar styloid. Impression: Basal joint and STT joint arthritis as well as associated narrowing at the capitolunate joint. us Simi Oliver MD IMG XR PROCEDURES Final Resul t * NJ ARTHROCENTESIS/ASPIRATION/INJECTION SMALL JOINT/BURSA WO U/S GUIDANCE (07/10/2025 10:45 AM EST) Simi Villafuerte MD - 07/10/2025 10:45 AM EST Simi Oliver MD 07/10/2025 2:40 PM Small Inj/Asp: R thumb CMC Details: 25 G needle Medications: 0.5 mL lidocaine 1 %; 20 mg triamcinolone acetonide 40 mg/mL The dorsum of the basal joint was prepped with Betadine alcohol and a small wheal of 1% lidocaine with epinephrine was injected over the site. The area was then prepped again and an injection of 20 mg of Kenalog mixed with 1/2 cc of plain lidocaine was injected into the joint. A Band-Aid was applied. Patient tolerated well. Informed Consent: Site: CMC thumb Laterality: Right Patient questions answered: yes Consent given by: Patient Informed consent discussion completed by Physician/MINDA with patient: Verbal Simi Oliver MD IN CLINIC/BEDSIDE ORDERABLES Final Result * [place] ARTHROCENTESIS/ASPIRATION/INJECTION INTERMEDIATE JOINT/BURSA WO U/S GUID (07/10/2025 10:45 AM EST) Simi Villafuerte MD - 07/10/2025 10:45 AM EST Simi Oliver MD 07/10/2025 2:40 PM Medium Inj/Asp: R radiocarpal Indications: pain Details: 25 G needle, dorsal approach Medications: 20 mg triamcinolone acetonide 40 mg/mL; 1 mL lidocaine 1 % Outcome: tolerated well, no immediate complications The right wrist was prepped with Betadine and alcohol. A small wheal of 1% lidocaine with epinephrine was injected over the dorsum of the wrist at the level of the midcarpal joint. We gave that a chance to take effect and I prepped the area again. I then injected half cc of Kenalog/20 mg mixed with 1 cc of plain lidocaine into the joint. A bandage was then applied. Informed Consent: Laterality: Right Relevant images/test results available and reviewed: yes Health status cleared: N/A Procedure/treatment, purpose, treatment alternatives, risks/potential complications and benefits explained: yes Risk/complications/benefits details: Risks and benefits of corticosteroid injection were discussed, including risk of pain, bleeding, infection, tissue attenuation, tendon rupture, changes in skin color, and injury to surrounding structures such as arteries, veins and nerves. We also discussed the patient may develop worsening pain for a few days before having improvement in their symptoms. Patient questions answered: yes Patient agrees, verbalizes understanding, and wants to proceed: yes Consent given by: Patient Informed consent discussion completed by Physician/MINDA with patient: Verbal Pre-procedure timeout performed: yes Result [place] [facility] Simi Oliver MD IN CLINIC/BEDSIDE ORDERABLES Final Result * Tissue Exam (07/07/2025) Final Diagnosis Labeled oral tissue (associated with implant tooth 3), biopsy: - Inflamed granulation tissue with a mixture of acute (neutrophilic) inflammation and chronic inflammation including a prominent population of plasma cells. - Squamous mucosa with erosion, acute inflammation and reactive epithelial changes. - A GMS stain is negative for fungal forms. - Given the patient's history of plasma cell myeloma, immunohistochemical studies were performed to assess the light chain status of the plasma cell population and the results are as follows: [place] light chain: Subset of plasma cells immunoreactive. Lambda light chain: Subset of plasma cells immunoreactive. Interpretation: The plasma cells show a polytypic pattern of kappa and lambda light chain expression, compatible with an inflammatory plasma cell infiltrate. 3:36 PM EST [facility] at 1536 EST Comment Flowers Salesperson slide(s) from this case have been presented at Anatomic Pathology Intradepartmental Review Conference on 07/10/25. 3:36 PM EST [facility] Clinical Information Granulomatous tissue assc w implant tooth 3 Hx of multiple myloma 3:36 PM EST [facility] Gross Description A. Oral Cavity, granulomatous tissue: Labeled with the patient's name and information . Received in formalin is a soft, rubbery, nix-red, 0.75 cm in greatest diameter polypoid portion of epithelial tissue which is inked blue at the base, bisected, wrapped in paper and and submitted in entirety in one cassette, two pieces, multiple levels on one slide. TS 3:36 PM EST [facility] Disclaimer NOTE: The immunohistochemical tests and in situ hybridization tests were developed and their performance characteristics were determined by [facility]. They have not been cleared or approved by the U.S. Food and Drug Administration. The FDA has determined that such clearance or approval is not necessary. These tests are used for clinical purposes. They should not be regarded as investigational or for research. This laboratory is certified under the Clinical Laboratory Improvement Amendments of 1988 (CLIA) as qualified to perform high complexity clinical laboratory testing. (controls appropriate) Unless otherwise specified, all tissue is 10% NB formalin fixed and paraffin embedded. 3:36 PM [facility] Tissue Oral cavity structure / Unknown 07/07/2025 07/08/2025 12:16 PM EST us Tyrone Taylor DMD LAB PATHOLOGY ORDERABLES Rosalba l Result [facility] [address] [place] [address], [place] [phone] from Last 3 Months Insurance MEDICARE [facility] Care Teams Water Attendant Relationship Specialty Start Date End Date Markos James MD [address] [place] [address] [address] [facility] [place] [address] PCP - General 01/08/24
--- OUTSIDE RECORDS SUMMARY | 2025-07-23 19:50 | XMS_ITS | Encounter Summary ---
Author Organization [employer] Address [address] [facility] 7t [place] [address] Care Team Providers Care Field Logistics Coordinator Name Role Phone Unavailable Primary Care Provider Unavailabl e Reason for Visit * Reason Onset Date Comments Appointment 07/15/2025 Encounter Details Date Type Department Care Team (Late st Contact Info) Description 07/15/2025 Telephone [facility] ADULT DENTAL [address] [place] [address] Tyrone Taylor, DMD [address] [place] [address] Appointment Social History Tobacco Use Types Packs/Day Years [...] encounter Miscellaneous Notes * Telephone Encounter - Robyn Clinton - 07/15/2025 9:27 AM EST PT called in to cancel her appointment saying she already got that extraction done. And stated she didn't want it but was very confused and started yelling at me. So just in case if pt calls in she did say to cancel her appointment many times. documented in this encounter Plan of Treatment Not on file documented as of this encounter Visit Diagnoses Not on filedocumented in this encounter
--- OUTSIDE RECORDS SUMMARY | 2025-07-23 19:51 | XMS_ITS | Encounter Summary ---
Author Organization [employer] Address [address] [facility] 7t [place] [address] Care Team Providers Care Jewelry Dipper Name Role Phone Unavailable Primary Care Provider [...]
--- OUTSIDE RECORDS SUMMARY | 2025-07-23 19:51 | XMS_ITS | Patient Health Record ---
Author Organization [facility] Michelle christine Peres Address [address] [facility] [place] [address] Care Team Providers Care System Planning Engineer Name Role Phone Mandeep Arriaga MD Primary Care Provider UnavailAshvin Griggs Unavailable [phone] Allergies Allergen (clinical drug ingredient) Drug/Non Drug [...] [employer] [address] [facility] [place] [address] [id number] Moni Cole Self - patient is the insured [employer] [address] [place] [address] [id number] Moni Cole Self - patient is the [...]
--- OUTSIDE RECORDS SUMMARY | 2025-07-23 19:51 | XMS_ITS | Encounter Summary ---
Author Organization [facility] Address [address] [place] [address] Phone Care Team Providers Care Solid Waste Collection Worker Name Role Phone Debra Muniz MD Unavailable Mohinder Fan MD Unavailable [phone] Van Dupont MD Unavailable Markos James MD Primary Care Provider [phone] Arsh Mata MD Unavailable Eufemia Caro RN Unavailable [email or web address] Encounter Details Date Type Department Care Team (Late st Contact Info) Description 03/15/2021 Procedure Pass [facility] Out[facility] Care - [place] [address] [facility], [address] [place] [address] Social History Tobacco Use Types Packs/Day Years [...] Center for Outpatient Care - MRI [address] [facility], [address] [place] [address] 09/09/2025 10:30 AM EST Blood Draw [facility] Malignancies [address] [facility], 9th Floor, [address] [place] [address] Van Dupont MD [address] [facility] [address] [address] [email or web address] 09/09/2025 10:50 AM EST Appointment [facility] for Outpatient Care - MRI [address] [facility], 6th [place] [address] Van Dupont MD [address] [address] [email or web address] 09/09/2025 11:30 AM EST Office Visit [facility] Center for Hematology Malignancies [address] [facility], 9th Floor, [address] [place] [address] Van Dupont MD [address] [address] [email or web address] documented as of this encounter Visit [...] documented as of this encounter Care Teams Solid Waste Collection Worker Relationship Specialty Start Date End Date Markos James MD [address] [place] [address] PCP - General Internal Medicine 12/07/20 Debra Muniz MD [address] [place] [address] Medical Oncology 05/27/18 Mohinder Fan MD [address] [place] [address] Consulting Provider Geriatric Psychiatry 05/27/18 Van Dupont MD [address] [facility] [address] [place] [address] [email or web address] Primary Oncologist Medical Oncology 10/14/18 Arsh Mata MD [address] [facility] [address] [place] [address] [email or web address] Treatment Team Hematology and Oncology 10/16/23 Eufemia Caro, NIKOLAS [address] [place] [address] [email or web address] Associate Infusion Nurse 10/16/23 documented as of this encounter Additional Source Comments The information contained in this document represents components of the legal health record. It is not the complete legal health record.[facility]
--- OUTSIDE RECORDS SUMMARY | 2025-07-23 19:51 | XMS_ITS | Encounter Summary ---
Author Organization [employer] Address [address] [facility] 7t [place] [address] Care Team Providers Care Music Ministries Director Name Role Phone Unavailable Primary Care Provider Unavailabl e Reason for Visit * Reason Onset Date Comments appt 08/13/2023 Encounter Details Date Type Department Care Team (Late st Contact Info) Description 08/13/2023 Telephone [facility] ADULT DENTAL [address] [place] [address] Lala Phillips DDS appt Social History Tobacco [...]
--- OUTSIDE RECORDS SUMMARY | 2025-07-23 19:51 | XMS_ITS | Clinical Summary ---
Author Organization [facility] Address [address] [facility] [address] [place] [address] Phone Care Team Providers Care Principal Hardware Architect Name Role Phone Debra Muniz MD Unavailable Mohinder Fan MD Unavailable Van Dupont MD Unavailable Po, Markos Awan MD Primary Care Provider Arsh Mata MD Unavailable Eufemia Caro RN Unavailable [email or web address] Allergies Active Allergy Reactions Criticality Noted Date Comments Dilaudid (Hydromorphone) Itching 04/17/2017 Keflex (Cephalexin) Hives 04/17/2017 had it later without hives. Tolerated cefepime test dose 11/03. Morphine 10/31/2023 Vagal response s/p morphine on 10/31/23 in ED. Nauseated+diaphoretic with hypotension SBP 70s and bradycardia 30s. Quickly self-resolved. Oxycodone Itching 04/17/2017 and also mental status unwell Medications budesonide-formo terol (SYMBICORT) 160-4.5 mcg/actuation inhaler Inhale 2 puffs [...] 5 1 Active LORazepam (ATIVAN) 0.5 MG tabletIndication s:anxiety,cancer chemotherapy-ind uced nausea and vomiting,insomni a Take 0.5 mg by mouth 2 (two) times a day as needed for anxiety. Indications: anxious, nausea and vomiting caused by cancer drugs, difficulty sleeping Active sulfamethoxazole -trimethoprim (BACTRIM DS) 800-160 mg per tablet 3 (three) times a week on Sunday, Sunday, Sunday. 3 Active diphenoxylate-at ropine (LOMOTIL) 2.5-0.025 mg per tablet Take 1 [...] as needed. 1 each 12 4 Active meloxicam (MOBIC) 15 MG tablet Take 15 mg by mouth daily. 4 Active desvenlafaxine succinate (PRISTIQ) 25 mg 24 hr tabletIndication s:Posttraumatic stress disorder Take 1 tablet (25 mg total) by mouth daily. 30 tablet 5 5 Active desvenlafaxine succinate (PRISTIQ) 25 mg 24 hr tabletIndication s:Posttraumatic stress disorder Take 1 tablet (25 mg total) by mouth daily. 30 tablet 5 5 025 Discontin ued(Reord er) Active Problems Patient Care Coordination No te Formatting of this note migh t be different from the original. Statement of completion of cellular therapy team care. Cleared to return to [facility] Myeloma team: As of DATE 11/30/23 - Patient is currently without any acute Cell Therapy related signs and symptoms and has been cleared by their Cell Therapy MD to transfer care back to their primary oncology team. MD to MD pass off will occur separately. For any questions please contact: [facility] Cancer Center: Cellular Therapy Team phone: [phone] [facility] CAR-T fax: [phone] Problem Noted Date Diagnosed Date Unspecified severe [...] and treatment. She felt very safe at [facility] and feels she has received excellent medical care through [facility] cancer center. She has some trepidation [...] reassurance that she can still call the [facility] cancer center for advice, day or [...] and treatment. She felt very safe at [facility] and feels she has received excellent medical care through [facility] cancer center. She has some trepidation [...] reassurance that she can still call the [facility] cancer center for advice, day or night #ACP: Code status: full code HCP: Davno (form on file) Assessment & Plan (08/21/2024 [...] and treatment. She felt very safe at [facility] and feels she has received excellent medical care through [facility] cancer center. She has some trepidation [...] reassurance that she can still call the [facility] cancer center for advice, day or night #ACP: Code status: full code HCP: Jarret Mays (form on file) Assessment & Plan (05/22/2024 [...] and treatment. She felt very safe at [facility] and feels she has received excellent medical care through [facility] cancer center. She has some trepidation [...] reassurance that she can still call the [facility] cancer center for advice, day or [...] and treatment. She felt very safe at [facility] and feels she has received excellent medical care through [facility] cancer center. She has some trepidation [...] reassurance that she can still call the [facility] cancer center for advice, day or [...] and treatment. She felt very safe at [facility] and feels she has received excellent medical care through [facility] cancer center. 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 Van [...] & Plan (10/31/2023 7:44 AM EST): Diagnosis: [place] LC Multiple Myeloma Primary Oncologist: Dr. Van [...] Encounters Date Type Department Care Team Description 06/26/2025 Refill [facility] Psychiatry Oncology [address] [facility], 10th Floor, [address] [place] [address] Sri Gandhi MD Medication Refill 06/20/2025 Refill [facility] Psychiatry Oncology [address] [facility], 10th [address], [address] [place] [address] Sri Gandhi MD Medication Refill 05/27/2025 Ancillary Orders [facility] [address] [place] [address] Van Dupont MD 05/21/2025 9:30 AM EDT Telemedicine - audio only [facility] Palliative Care Clinic [address] [facility], 7th [address], [address] [place] [address] Mandy Ricks MD Malaise and fatigue (Primary Dx); Multiple myeloma not having achieved remission; Pain of lower extremity, unspecified laterality; Encounter for palliative care 05/14/2025 Orders Only [facility] Center for Hematology Malignancies [address] [facility], 9th [address], [address] [place] [address] ProviderBina MD 05/12/2025 12:30 PM EDT Office Visit [facility] Center for Hematology Malignancies [address] [facility], 9th [address], [address] [place] [address] Van Dupont MD Multiple myeloma, remission status [...] Contact Info) Description 05/13/2025 Procedure Pass [facility] [address] [facility], [address]th [place] [address] 09/09/2025 10:30 AM EST Blood Draw [facility] Center for Hematology Malignancies [address] [facility], 9th Floor, [address] [place] [address] Van Dupont MD [address] [address] [email or web address] 09/09/2025 10:50 AM EST Appointment [facility] MRI [address] [facility], [address]th [place] [address] Van Dupont MD [address] [address] [email or web address] 09/09/2025 11:30 AM EST Office Visit [facility] Center for Hematology Malignancies [address] [facility], 9th [address], [address] [place] [address] Van Dupont MD [address] [address] [email or web address] Health Maintenance Due Date Last Done Comments [...] patient's age to complete this topic IPV VACCINES Aged Out No longer eligi ble [...] the on-call Immune Effector Cell Attending via [email or web address] [email or web address] Page immediately if patient presents [...] team evaluation. Patients should be admitted to [place] [address] to the Immune Effector Cell Service. Medical [...] not having achieved remission COMPREHENSIVE METABOLIC PANEL (CMP) Routine 05/12/2025 11:19 AM EDT Multiple myeloma [...] Lab (05/14/2025 10:54 AM EDT) Historical Provider MD LAB BLOOD BKR ORDERABLES Final Result * [facility] (05/12/2025 11:19 AM EDT) LDH 188 110 - 210 U/L [facility] 05/12/2025 11:1 9 AM EDT 05/12/2025 11:29 AM EDT Van Dupont MD LAB BLOOD BKR ORDERABLES Final R esult [facility] [address] [place] [address] * Comprehensive metabolic panel (05/12/2025 11:19 AM EDT) SODIUM 140 135 - 145 mmol/L [facility] POTASSIUM 4.6 3.4 - 5.0 mmol/L [facility] CHLORIDE 106 98 - 108 mmol/L [facility] CO2 24 23 - 32 mmol/L [facility] BUN 20 8 - 25 mg/dL [facility] CREATININE 0.87 0.50 - 1.00 mg/dL [facility] GLUCOSE 104 70 - 110 mg/dL [facility] ALBUMIN 4.4 3.3 - 5.0 g/dL [facility] TOTAL PROTEIN 6.9 6.0 - 8.3 g/dL [facility] CALCIUM 9.8 8.5 - 10.5 mg/dL [facility] ALKALINE PHOSPHATASE 85 30 - 100 U/L [facility] TOTAL BILIRUBIN 0.6 0.0 - 1.0 mg/dL [facility] AST 28 9 - 32 U/L [facility] ALT 22 7 - 33 U/L [facility] GLOBULIN 2.5 1.9 - 4.1 g/dL [facility] EGFR 67 >59 mL/min/1. 73m2 [facility] Comment:Estimated glomerular filtration rate calculated using the CKD-EPI refit equation. ANION GAP 10 3 - 17 mmol/L [facility] 05/12/2025 11:1 9 AM EDT 05/12/2025 11:29 AM EDT Van Dupont MD LAB BLOOD BKR ORDERABLES Final R esult [facility] [address] [place] [address] * (ABNORMAL) SPEP panel (05/12/2025 11:19 AM EDT) Total Protein 6.7 6.0 - 8.3 g/dL [facility] IMMUNOGLOBULIN G 684 614 - 1,295 mg/dL [facility] IgA 17(L) 69 - 309 mg/dL [facility] IMMUNOGLOBULIN M 55 53 - 334 mg/dL [facility] SPEP Normal pattern [facility] Comment: Normal SPEP: Normal pattern Carmen Rosado M.D., Director Clinical Immunology Laboratory [id number] Serum protein electrophoresis results should be evaluated in the context of separately reported serum free light chain levels and ratio when these additional results are available. 05/12/2025 11:1 9 AM EDT 05/12/2025 11:30 AM EDT us Van Dupont MD LAB BLOOD BKR ORDERABLES Final R esult Performing Organization Address City/[facility] Co de Phone Number [address] [address] * Iron and iron binding capacity (05/12/2025 11:19 AM EDT) IRON 77 30 - 160 ug/dL [facility] IRON BINDING CAPACITY 378 230 - 404 ug/dL [facility] TRANSFERRIN SATURAT. 20 14 - 50 % [facility] 05/12/2025 11:1 9 AM EDT 05/12/2025 11:29 AM EDT Van Dupont MD LAB BLOOD BKR ORDERABLES Final R esult Performing Organization Address [facility] Co de Phone Number [address] [address] * Free light chains, serum (05/12/2025 11:19 AM EDT) FREE KAPPA LT CHAIN 5.3 3.3 - 19.4 mg/L [facility] FREE LAMBDA LT CHAIN 6.3 5.7 - 26.3 mg/L [facility] FREE KAPPA LAMBDA RAT 0.84 0.30 - 1.70 [facility] 05/12/2025 11:1 9 AM EDT 05/12/2025 11:30 AM EDT Van Dupont MD LAB BLOOD BKR ORDERABLES Final R esult Performing Organization Address City/[facility] Co de Phone Number [address] [address] * (ABNORMAL) CBC and differential (05/12/2025 11:19 AM EDT) WBC 8.25 4.00 - 11.00 K/uL [facility] RBC 4.38 4.00 - 5.20 M/uL [facility] HGB 12.8 12.0 - 16.0 g/dL [facility] HCT 38.4 36.0 - 46.0 % [facility] PLT 149(L) 150 - 450 K/uL [facility] MCV 87.7 80.0 - 100.0 fL [facility] MCH 29.2 27.0 - 31.0 pg [facility] MCHC 33.3 32.0 - 36.0 g/dL [facility] RDW 13.7 11.5 - 14.5 % [facility] MPV 8.7 8.4 - 12.0 fL [facility] NRBC 0.00 0.00 /100 WBCs [facility] ABSOLUTE NRBC 0.00 0.00 K/uL [facility] DIFF METHOD Auto [facility] NEUTS 81.1(H) 48.0 - 76.0 % [facility] LYMPHS 9.7(L) 18.0 - 41.0 % [facility] MONOS 7.8 4.0 - 11.0 % [facility] EOS 0.4 0.0 - 5.0 % [facility] BASOS 0.2 0.0 - 1.5 % [facility] % IMMATURE GRANS 0.8 0.0 - 0.9 % [facility] ABSOLUTE NEUTS 6.69 1.92 - 7.60 K/uL [facility] ABSOLUTE LYMPHS 0.80 0.72 - 4.10 K/uL [facility] ABSOLUTE MONOS 0.64 0.16 - 1.10 K/uL [facility] ABSOLUTE EOS 0.03 0.00 - 0.50 K/uL [facility] ABSOLUTE BASOS 0.02 0.00 - 0.15 K/uL [facility] ABS IMMATURE GRANS 0.07 0.00 - 0.09 K/uL [facility] Blood 05/12/2025 11:1 9 AM EDT 05/12/2025 11:29 AM EDT us Van Dupont MD LAB BLOOD BKR ORDERABLES Final R esult [address] [address] * Phosphorus (05/12/2025 11:19 AM EDT) PHOSPHORUS 4.1 2.6 - 4.5 mg/dL [facility] 05/12/2025 11:1 9 AM EDT 05/12/2025 11:29 AM EDT us Van Dupont MD LAB BLOOD BKR ORDERABLES Final R esult Performing Organization Address City/[facility]/ZIP Co de Phone Number [address] [address] * Magnesium (05/12/2025 11:19 AM EDT) MAGNESIUM 2.4 1.7 - 2.4 mg/dL [facility] 05/12/2025 11:1 9 AM EDT 05/12/2025 11:29 AM EDT us Van Dupont MD LAB BLOOD BKR ORDERABLES Final R esult Performing Organization Address City/[facility]/ZIP Co de Phone Number [address] [address] * Folate (05/12/2025 11:19 AM EDT) FOLIC ACID >20.0 >4.7 ng/mL [facility] 05/12/2025 11:1 9 AM EDT 05/12/2025 11:30 AM EDT us Van Dupont MD LAB BLOOD BKR ORDERABLES Final R esult [address] [address] * (ABNORMAL) Ferritin (05/12/2025 11:19 AM EDT) FERRITIN 248(H) 10 - 200 ug/L [facility] 05/12/2025 11:1 9 AM EDT 05/12/2025 11:29 AM EDT us Vna Dupont MD LAB BLOOD BKR ORDERABLES Final R esult [address] [address] * Vitamin B12 (05/12/2025 11:19 AM EDT) VITAMIN B12 1,317 >231 pg/mL [facility] 05/12/2025 11:1 9 AM EDT 05/12/2025 11:29 AM EDT us Van Dupont MD LAB BLOOD BKR ORDERABLES Final R esult Performing Organization Address [facility] Co de Phone Number [address] [address] * (ABNORMAL) Beta-2 microglobulin, blood (05/12/2025 11:19 AM EDT) BETA 2 MICROGLOBUL 2.65(H) 0.80 - 2.34 mcg/mL [facility] 05/12/2025 11:1 9 AM EDT 05/12/2025 11:30 AM EDT us Van Dupont MD LAB BLOOD BKR ORDERABLES Final R esult Performing Organization Address City/[facility] Co de Phone Number [address] [address] from Last 3 Months Insurance [place] [employer] SUPPLEMENT MEDICARE PART A & B [facility] MEDEX SUPPLEMENT MEDICARE PART A & B [facility] MEDEX SUPPLEMENT MEDICARE PART A & B [employer] MED[employer] SUPPLEMENT MEDICARE PART A & B POS on [place] [employer] MED[employer] SUPPLEMENT MEDICARE PART A & B [place] [employer] SUPPLEMENT MEDICARE PART A & B Member Subscriber Plan / Payer ( fective 2009-Present) Name:Kelsey Moni G Member ID:[id number] Relation to Subscriber:Self Name:Kelsey Moni G Subscriber ID:[id number] Payer ID:[id number] Group ID:Not on file Type:Medicare Address: [facility] [address] [place] [address] [facility] MEDEX SUPPLEMENT MEDICARE PART A & B Member Subscriber Plan / Payer (Ef fective 2009-) Name:Moni Cole Member ID:[id number] Relation to Subscriber:Self Name:Moni Cole Subscriber ID:[id number] Payer ID:[id number] Group ID:Not on file Type:Medicare Address: [facility] [address] [place] [address] POS on [place] [employer] MEDEX SUPPLEMENT MEDICARE PART A & B [facility] MEDEX SUPPLEMENT MEDICARE PART A & B Advance Directives For more information, please contact: [phone] (9AM - 5PM [facility], Sunday-Sunday) Documents on File Type Date Recorded Patient Supply Chain Analyst Expl anation Healthcare Proxy 11/12/2023 5:43 PM * Full Code (Latest Code Status on File) Date Activated Date Inactivated Comments 10/31/2023 4:30 PM Question Answer Comments Code Status Confirmed With: Patient Healthcare Agents on File Name Relationship Healthcare Agent Relationshi p Communication Davon Kelsey Spouse .Primary Health Care Agent (Proxy form on file) [email or web address] Care Teams Principal Hardware Architect Relationship Specialty Start Date End Date Markos James MD [address] [place] [phone] PCP - General Internal Medicine 12/07/20 Debra Muniz MD [address] [place] [address] Medical Oncology 05/27/18 Mohinder Fan MD [address] [place] [address] Consulting Provider Geriatric Psychiatry 05/27/18 Van Dupont MD [address] [facility] [address] [place] [address] [email or web address] Primary Oncologist Medical Oncology 10/14/18 Arsh Mata MD [address] [facility] [address] [place] [address] [email or web address] Treatment Team Hematology and Oncology 10/16/23 Eufemia Caro, NIKOLAS [address] [place] [address] [email or web address] Associate Infusion Nurse 10/16/23 Additional Source Comments The information contained in this document represents components of the legal health record. It is not the complete legal health record.[facility]
--- OUTSIDE RECORDS SUMMARY | 2025-07-23 19:51 | XMS_ITS | Encounter Summary ---
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 Lambda light chain: Subset of plasma cells immunoreactive. Interpretation: The plasma cells show a polytypic pattern of kappa and lambda light chain expression, compatible with an inflammatory plasma cell infiltrate. 5 3:36 PM EST [facility] at 1536 EST Comment Delinquent Account Clerk slide(s) from this case have been presented at Anatomic Pathology Intradepartmental Review Conference on 07/10/25. 5 3:36 PM EST [facility] Clinical Information Granulomatous tissue assc w implant tooth 3 Hx of multiple myloma 5 3:36 PM EST [facility] Gross Description A. Oral Cavity, [...] on one slide. TS 3:36 PM EST [facility] Disclaimer NOTE: The immunohistochemical tests and in situ hybridization tests were developed and their performance characteristics were determined by [facility]. They have not been cleared [...] 10% NB formalin fixed and paraffin embedded. 5 3:36 PM [facility] Tissue Oral cavity structure / Unknown 07/07/2025 07/08/2025 12:16 PM EST Tyrone Taylor [facility] PATHOLOGY ORDERABLES Rosalba rivera Result [facility] [address] [place] [address], documented in this encounter Visit Diagnoses Diagnosis Granuloma and granuloma-like lesions of oral mucosa documented in this encounter Care Teams Intermodal Dispatcher Relationship Specialty Start Date End Date Jacob, MD Markos [address] [place] [address] Dr [address] [facility] [place] [address] PCP - General 01/08/24 documented as of this encounter
--- OUTSIDE RECORDS SUMMARY | 2025-07-23 19:51 | XMS_ITS ---
Author Organization [facility] Address [address] [employer] [facility] [address] [place] [address] Phone Care Team Providers Care Shipyard Painting Supervisor Name Role Phone Debra Muniz MD Unavailable Mohinder Fan MD Unavailable [phone] Van Dupont MD Unavailable Markos James MD Primary Care Provider [phone] Arsh Mata MD Unavailable [phone] Eufemia Caro RN Unavailable MELISSA [email or web address] Active Problems Patient Care Coordination No te Formatting of this note migh t be different from the original. Statement of completion of cellular therapy team care. Cleared to return to [facility] Myeloma team: As of DATE 11/30/23 - Patient is currently without any acute Cell Therapy related signs and symptoms and has been cleared by their Cell Therapy MD to transfer care back to their primary oncology team. MD to MD pass off will occur separately. For any questions please contact: [facility] Cancer Center: Cellular Therapy Team phone: [phone] [facility] CAR-T fax: [phone] Problem Noted Date Diagnosed Date Unspecified severe [...] and treatment. She felt very safe at [facility] and feels she has received excellent medical care through [facility] cancer center. She has some trepidation about [...] reassurance that she can still call the [facility] cancer center for advice, day or night [...] and treatment. She felt very safe at [facility] and feels she has received excellent medical care through [facility] cancer center. She has some trepidation about [...] reassurance that she can still call the [facility] cancer center for advice, day or night [...] and treatment. She felt very safe at [facility] and feels she has received excellent medical care through [facility] cancer center. She has some trepidation about [...] reassurance that she can still call the [facility] cancer rusk for advice, day or night #ACP: Code [...] and treatment. She felt very safe at [facility] and feels she has received excellent medical care through [facility] cancer center. She has some trepidation about [...] reassurance that she can still call the [facility] cancer center for advice, day or night [...] and treatment. She felt very safe at [facility] and feels she has received excellent medical care through [facility] cancer center. She has some trepidation about [...] reassurance that she can still call the [facility] cancer center for advice, day or night [...] and treatment. She felt very safe at [facility] and feels she has received excellent medical care through [facility] cancer center. 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 Van [...] & Plan (10/31/2023 7:44 AM EST): Diagnosis: [place] LC Multiple Myeloma Primary Oncologist: Dr. Van [...]
--- OUTSIDE RECORDS SUMMARY | 2025-07-23 19:51 | XMS_ITS | Encounter Summary ---
Author Organization [facility] Address [address] [place] [address] Phone Care Team Providers Care Water Service Supervisor Name Role Phone Debra Muniz MD Unavailable Mohinder Fan MD Unavailable [phone] Van Dupont MD Unavailable Markos James MD Primary Care Provider [phone] Arsh Mata MD Unavailable Eufemia Caro RN Unavailable MELISSA [email or web address] Encounter Details Date Type Department Care Team (Late st Contact Info) Description 10/30/2022 Procedure Pass [facility] Outpatient Care - [place] [address] [facility], [address] [place] [address] Social History Tobacco Use Types Packs/Day Years [...] st Contact Info) Description 05/13/2025 Procedure Pass [facility] for [facility]patient Care - MRI 32 [facility], 6th [place] [address] 09/09/2025 10:30 AM EST Blood Draw [facility] Center for Hematology Malignancies 32 [facility], 9th Floor, [address] [place] [address] Van Dupont MD [address] [facility] [address] [address] [email or web address] 09/09/2025 10:50 AM EST Appointment [facility] for [facility]patient Care - MRI 32 [facility], 6th [place] [address] Van Dupont MD [address] [address] [email or web address] 09/09/2025 11:30 AM EST Office Visit [facility] Center for Hematology Malignancies 32 [facility], 9th Floor, [address] [place] [address] Van Dupont MD [address] [address] [email or web address] documented as of this [...] documented as of this encounter Care Teams Water Service Supervisor Relationship Specialty Start Date End Date Markos James MD [address] [place] [address] PCP - General Internal Medicine 12/07/20 Debra Muniz MD [address] [place] [address] Medical Oncology 05/27/18 Mohinder Fan MD [address] [place] [address] Consulting Provider Geriatric Psychiatry 05/27/18 Van Dupont MD [facility] [address] [address] [place] [address] [email or web address] Primary Oncologist Medical Oncology 10/14/18 Arsh Mata MD 55 [facility] [address] [place] [address] [email or web address] Treatment Team Hematology and Oncology 10/16/23 Eufemia Caro, NIKOLAS [address] [place] [address] [email or web address] Associate Infusion Nurse 10/16/23 documented as of this encounter Additional Source Comments The information contained in this document represents components of the legal health record. It is not the complete legal health record.[facility]
--- OUTSIDE RECORDS SUMMARY | 2025-07-23 19:51 | XMS_ITS | Encounter Summary ---
Author Organization [facility] Address [address] [place] [address] Care Team Providers Care Oim Architect Name Role Phone Markos James MD Primary Care Provider [phone] Encounter Details Date Type Department Care Team (Late st Contact Info) Description 09/25/2024 Lab Requisition [facility] - Main Lab [address] [facility] [place] [address] Glo Espinoza PA [address] [place], [place] [id number] Personal history of malignant neoplasm of bladder [...] AM EST) Final Diagnosis A. Urine, Voided, ([id number]): Negative for high grade urothelial carcinoma. Results of UroVysion fluorescence in situ hybridization (FISH) testing: CEP3: Normal CEP7: Normal CEP17: Normal LSI 9p21: Normal Interpretation: Normal profile Controls stained appropriately. Note: The results are intended as a screening device and should be interpreted in association with other clinical and pathological findings. 10/09/2024 11:50 AM EST [facility] Clinical Information History of bladder neoplasm (malignant) Z85.51 Urine Cytology/FISH (now) 10/09/2024 11:50 AM [facility] Gross Description A. Urine, Voided, ([id number]): Received one ThinPrep slide for cytology screen and one ThinPrep slide for UroVysion FISH 10/09/2024 11:50 AM [facility] Disclaimer Unless otherwise specified, all tissue is 10% NB formalin fixed and paraffin embedded. Technical pathology services provided by [facility] at [address] [place] [address] [address], [place] [address] (CLIA #[id number]/Nara Deal MD, Burrer Hand) 10/09/2024 11:50 AM [facility] Tissue Urine specimen from urethra / Unknown 09/19/2024 09/25/2024 8:14 AM EST us Gl[facility] PATHOLOGY ORDERABLES Final Result [facility] [address] [place] [address], documented in this encounter Visit Diagnoses Diagnosis Personal history of malignant neoplasm of bladder documented in this encounter Care Teams Oim Architect Relationship Specialty Start Date End Date Markos James MD [address] [place] [address] [address] [facility] [place] [address] PCP - General 01/08/24 documented as of this encounter
--- OUTSIDE RECORDS SUMMARY | 2025-07-23 19:51 | XMS_ITS | Encounter Summary ---
Author Organization [facility] Address [address] [employer] [facility] [address] [place] [address] Phone Care Team Providers Care Scarf And Anneal Operator Name Role Phone Debra Muniz MD Unavailable Mohinder Fan MD Unavailable [phone] Van Dupont MD Unavailable Markos James MD Primary Care Provider Arsh Mata MD Unavailable Eufemia Caro RN Unavailable MELISSA [email or web address] [email or web address] [email or web address] Encounter Details Date Type Department Care Team (Late st Contact Info) Description 04/17/2017 Procedure Pass [facility] [address] [place] [address] Social History Tobacco Use Types Packs/Day Years [...] st Contact Info) Description 05/13/2025 Procedure Pass [facility] Care - MRI 32 [facility], 6th [place] [address] 09/09/2025 10:30 AM EST Blood Draw [facility] Center for Hematology Malignancies 32 [facility], 9th Floor, [address] [place] [address] Van Dupont MD [address] [address] [email or web address] 09/09/2025 10:50 AM EST Appointment [facility] for Outpatient Care - MRI 32 [facility], 6th [place] [address] Van Dupont MD [address] [place] [address] [email or web address] 09/09/2025 11:30 AM EST Office Visit [facility] Center for Hematology Malignancies 32 [facility], 9th Floor, [address] [place] [address] Van Dupont MD [address] [address] [email or web address] documented as of [...] documented as of this encounter Care Teams Scarf And Anneal Operator Relationship Specialty Start Date End Date Markos James MD [address] [place] [address] PCP - General Internal Medicine 12/07/20 Debra Muniz MD [address] [place] [address] Medical Oncology 05/27/18 Mohinder Fan MD [address] [place] [address] Consulting Provider Geriatric Psychiatry 05/27/18 Van Dupont MD 55 [facility] [address] [place] [address] [email or web address] [email or web address] Primary Oncologist Medical Oncology 10/14/18 Arsh Mata MD 55 [facility] [address] [place] [address] [email or web address] Treatment Team Hematology and Oncology 10/16/23 Eufemia Caro RN 55 [place] [address] [email or web address] [email or web address] Associate Infusion Nurse 10/16/23 documented as of this encounter Additional Source Comments The information contained in this document represents components of the legal health record. It is not the complete legal health record.[facility]
--- OUTSIDE RECORDS SUMMARY | 2025-07-23 19:51 | XMS_ITS | Encounter Summary ---
Author Organization [facility] Address [address] [employer] [facility] [address] [place] [address] Phone Care Team Providers Care Content Strategy Lead Name Role Phone Debra Muniz MD Unavailable Mohinder Fan MD Unavailable [phone] Van Dupont MD Unavailable Markos James MD Primary Care Provider Arsh Mata MD Unavailable [phone] Eufemia Caro RN Unavailable [email or web address] [email or web address] Encounter Details Date Type Department Care Team (Late st Contact Info) Description 01/24/[address] [facility] Imaging [address] [place] [address] Social History Tobacco Use Types Packs/Day Years [...] Center for Outpatient Care - MRI 32 [facility] 6th [place] [address] 09/09/2025 10:30 AM EST Blood Draw [facility] Center for Hematology Malignancies 32 [facility], 9th Floor, [address] [place] [address] Van Dupont MD [address] [address] [email or web address] 09/09/2025 10:50 AM EST Appointment [facility] for [facility]patient Care - MRI 32 [facility], 6th [place] [address] Van Dupont MD [address] [address] [email or web address] 09/09/2025 11:30 AM EST Office Visit [facility] Center for Hematology Malignancies 32 [facility], 9th Floor, [address] [place] [address] Van Dupont MD [address] [address] [email or web address] documented as of this encounter Visit [...] documented as of this encounter Care Teams Content Strategy Lead Relationship Specialty Start Date End Date Markos James MD [address] [facility] [address] [place] [address] PCP - General Internal Medicine 12/07/20 Debra Muniz MD [address] [place] [address] Medical Oncology 05/27/18 Mohinder Fan MD 103 [place] [address] Consulting Provider Geriatric Psychiatry 05/27/18 Van Dupont MD 55 [facility] [address] [place] [address] [email or web address] Primary Oncologist Medical Oncology 10/14/18 Arsh Mata MD 55 [facility] [address] [place] [address] [email or web address] Treatment Team Hematology and Oncology 10/16/23 Eufemia Caro, NIKOLAS 55 [place] [address] [email or web address] Associate Infusion Nurse 10/16/23 documented as of this encounter Additional Source Comments The information contained in this document represents components of the legal health record. It is not the complete legal health record.[facility]
--- OUTSIDE RECORDS SUMMARY | 2025-07-23 19:51 | XMS_ITS | Encounter Summary ---
Author Organization [employer] Address 75 [facility] 7t [place] [address] Care Team Providers Care Accounting Manager Name Role Phone Unavailable Primary Care [...]
--- OUTSIDE RECORDS SUMMARY | 2025-07-23 19:51 | XMS_ITS | Encounter Summary ---
Author Organization [facility] Address [address] [facility] [place] [address] [place] [address] Phone Care Team Providers Care Marketing Rep Name Role Phone Debra Muniz MD Unavailable Mohinder Fan MD Unavailable [phone] Van Dupont MD Unavailable Markos James MD Primary Care Provider Arsh Mata MD Unavailable Eufemia Caro RN Unavailable MELISSA [email or web address] Encounter Details Date Type Department Care Team (Late st Contact Info) Description 12/27/[address] Imaging - [address], [address] [place] [address] Social History Tobacco Use Types [...] Center for Outpatient Care - MRI 32 [facility], 6th [place] [address] 09/09/2025 10:30 AM EST Blood Draw [facility] Center for Hematology Malignancies 32 [facility], 9th Floor, [address] [place] [address] Van Dupont MD [address] [facility] [address]A [address] [place] [address] [email or web address] 09/09/2025 10:50 AM EST Appointment [facility] for [facility]patient Care - MRI 32 [facility], 6th [place] [address] Van Dupont MD [address] [place] [address] [email or web address] 09/09/2025 11:30 AM EST Office Visit [facility] Center for Hematology Malignancies 32 [facility], 9th Floor, [address] [place] [address] Van Dupont MD [address] [address] [email or web address] documented as of this encounter [...] documented as of this encounter Care Teams Marketing Rep Relationship Specialty Start Date End Date Markos James MD [address] [place] [address] PCP - General Internal Medicine 12/07/20 Debra Muniz MD [address] [place] [address] Medical Oncology 05/27/18 Mohinder Fan MD [address] [place] [address] Consulting Provider Geriatric Psychiatry 05/27/18 Van Dupont MD 55 [facility] [address] [place] [address] [email or web address] Primary Oncologist Medical Oncology 10/14/18 Arsh Mata MD [address] [employer] [address] [place] [address] Treatment Team Hematology and Oncology 10/16/23 Eufemia Caro RN 55 [place] [address] [email or web address] Associate Infusion Nurse 10/16/23 documented as of this encounter Additional Source Comments The information contained in this document represents components of the legal health record. It is not the complete legal health record.[facility]
--- OUTSIDE RECORDS SUMMARY | 2025-07-23 19:51 | XMS_ITS | Encounter Summary ---
Author Organization [facility] Address [address] [place] [address] Phone Care Team Providers Care Liquor Bridge Operator Name Role Phone Debra Muniz MD Unavailable Mohinder Fan MD Unavailable [phone] Van Dupont MD Unavailable Markos James MD Primary Care Provider Arsh Mata MD Unavailable [phone] Eufemia Caro RN Unavailable MELISSA [email or web address] Encounter Details Date Type Department Care Team (Late st Contact Info) Description 06/05/2022 Procedure Pass [facility] Outpatient Care - CT [address] [facility], [address] [place] [address] Social History Tobacco Use Types Packs/Day Years [...] [email or web address]] for Outpatient Care - MRI 32 [facility], 6th [place] [address] 09/09/2025 10:30 AM EST Blood Draw [facility] Center for Hematology Malignancies 32 [facility], 9th Floor, [address] [place] [address] Van Dupont MD 55 [address] [facility] [address] [address] [email or web address] 09/09/2025 10:50 AM EST Appointment [email or web address] for Outpatient Care - MRI 32 [facility], 6th [place] [address] Van Dupont MD [address] [address] [email or web address] 09/09/2025 11:30 AM EST Office Visit [facility] Center for Hematology Malignancies 32 [facility], 9th Floor, [address] [place] [address] Van Dupont MD [address] [address] [email or web address] documented as of this encounter Visit [...] documented as of this encounter Care Teams Liquor Bridge Operator Relationship Specialty Start Date End Date Markos James MD [address] [place] [address] PCP - General Internal Medicine 12/07/20 Debra Muniz MD [address] [place] [address] Medical Oncology 05/27/18 Mohinder Fan MD 103 [place] [address] Consulting Provider Geriatric Psychiatry 05/27/18 Van Dupont MD 55 [facility] [address] [place] [address] [email or web address] Primary Oncologist Medical Oncology 10/14/18 Arsh Mata MD 55 [facility] [address] [place] [address] [email or web address] Treatment Team Hematology and Oncology 10/16/23 Eufemia Caro, NIKOLAS 55 [place] [address] [email or web address] Associate Infusion Nurse 10/16/23 documented as of this encounter Additional Source Comments The information contained in this document represents components of the legal health record. It is not the complete legal health record.[facility]
--- OUTSIDE RECORDS SUMMARY | 2025-07-23 19:51 | XMS_ITS | Encounter Summary ---
Author Organization [facility] Address [address] [employer] [facility] [address] [place] [address] Phone Care Team Providers Care Cable Splicer Apprentice Name Role Phone Debra Muniz MD Unavailable Mohinder Fan MD Unavailable [phone] Van Dupont MD Unavailable Markos James MD Primary Care Provider Arsh Mata MD Unavailable [phone] Eufemia Caro RN Unavailable [email or web address] Encounter Details Date Type Department Care Team (Late st Contact Info) Description 02/06/2017 Procedure Pass [facility] Imaging [address] [place] [address] Social History Tobacco Use Types Packs/Day Years [...] st Contact Info) Description 05/13/2025 Procedure Pass [facility] - [facility] 32 [facility] 6th [place] [address] 09/09/2025 10:30 AM EST Blood Draw [facility] Malignancies 32 [facility], 9th Floor, [address] [place] [address] Van Dupont MD [address] [address] [email or web address] 09/09/2025 10:50 AM EST Appointment [facility] - MRI 32 [facility], 6th [place] [address] Van Dupont MD [address] [address] [email or web address] 09/09/2025 11:30 AM EST Office Visit [facility] Malignancies 32 [facility], 9th Floor, [address] [place] [address] Van Dupont MD [address] [address] [email or web address] documented as [...] documented as of this encounter Care Teams Cable Splicer Apprentice Relationship Specialty Start Date End Date Markos James MD [address] [facility] [address] [place] [address] PCP - General Internal Medicine 12/07/20 Debra Muniz MD [address] [place] [address] Medical Oncology 05/27/18 Mohinder Fan MD [address] [place] [address] Consulting Provider Geriatric Psychiatry 05/27/18 Van Dupont MD 55 [facility] [address] [place] [address] [email or web address] Primary Oncologist Medical Oncology 10/14/18 Arsh Mata MD 55 [facility] [address] [place] [address] [email or web address] Treatment Team Hematology and Oncology 10/16/23 Eufemia Caro, NIKOLAS 55 [place] [address] [email or web address] Associate Infusion Nurse 10/16/23 documented as of this encounter Additional Source Comments The information contained in this document represents components of the legal health record. It is not the complete legal health record.[facility]
--- OUTSIDE RECORDS SUMMARY | 2025-07-23 19:51 | XMS_ITS | Encounter Summary ---
Author Organization [facility] Address [address] [employer] [facility] [address] [place] [address] Phone Care Team Providers Care Job Boss Name Role Phone Debra Muniz MD Unavailable Mohinder Fan MD Unavailable [phone] Van Dupont MD Unavailable Markos James MD Primary Care Provider Arsh Mata MD Unavailable [phone] Eufemia Caro RN Unavailable [email or web address] Encounter Details Date Type Department Care Team (Late st Contact Info) Description 02/06/2017 Procedure Pass [facility] Imaging [address] [place] [address] Social History Tobacco Use Types Packs/Day Years [...] st Contact Info) Description 05/13/2025 Procedure Pass [facility] - MRI 32 [facility] 6th [place] [address] 09/09/2025 10:30 AM EST Blood Draw [facility] Malignancies 32 [facility], 9th Floor, [address] [place] [address] Van Dupont MD [address] [address] [email or web address] 09/09/2025 10:50 AM EST Appointment [facility] - MRI 32 [facility], 6th [place] [address] Van Dupont MD [address] [address] [email or web address] 09/09/2025 11:30 AM EST Office Visit [facility]ematology Malignancies 32 [facility], 9th Floor, [address] [place] [address] Van Dupont MD [address] [address] [email or web address] documented as of this [...] documented as of this encounter Care Teams Job Boss Relationship Specialty Start Date End Date Markos James MD [address] [facility] [address] [place] [address] PCP - General Internal Medicine 12/07/20 Debra Muniz MD [address] [place] [address] Medical Oncology 05/27/18 Mohinder Fan MD 103 [place] [address] Consulting Provider Geriatric Psychiatry 05/27/18 Van Dupont MD 55 [email or web address] [address] [place] [address] [email or web address] Primary Oncologist Medical Oncology 10/14/18 Arsh Mata MD 55 [facility] [address] [place] [address] [email or web address] Treatment Team Hematology and Oncology 10/16/23 Eufemia Caro, NIKOLAS 55 [place] [address] [email or web address] Associate Infusion Nurse 10/16/23 documented as of this encounter Additional Source Comments The information contained in this document represents components of the legal health record. It is not the complete legal health record.[facility]
--- OUTSIDE RECORDS SUMMARY | 2025-07-23 19:51 | XMS_ITS | Clinical Summary ---
Author Organization [employer] Address 75 [facility] 7t [place] [address] Care Team Providers Care Lime Burner Name Role Phone Unavailable Primary Care Provider [...] for 30 minutes following use. 473 mL 4 Active Encounters Date Type Department Care Team Description 07/15/[address] [facility] D[facility]AL [address] [place] [address] Tyrone Taylor DMD Appointment 07/15/[address] [facility] [address] [place] [address] Tyrone Taylor DMD APPT 07/08/[address] [facility] [address] [place] [address] Tyrone Taylor DMD 06/24/2025 3:00 PM EDT Office Visit [facility] [address] [place] [address] Tyrone Taylor DMD from Last 3 Months Social History Tobacco [...] 10/05/2021 Dental X-Ray: Bitewings 06/09/2024 06/08/2023, 10/05 Influenza Vaccine (#1) 2025 , 06/18/2023, 06/07/2022, Additional history exists COVID-19 Vaccine (2024- season) 2025 06/21/2025, 05/27/2024, 06/18/2023, Additional history exists Tobacco Screening 06/24/2026 06/24/2025 Dental X-Ray: Full Mouth 06/25/2028 06/24/2025, 0210/2021 DTaP/Tdap/Td Vaccines (2 - Td or Tdap) [...] Procedure Name Priority Date/Time Associated Diagnosis Comments LIMITED ORAL EVALUATION - PROBLEM FOCUSED Routine 06/24/2025 3:00 PM EDT PANORAMIC RADIOGRAPHIC IMAGE Routine 06/24/2025 3:00 PM EDT BITEWING - SINGLE RADIOGRAPHIC IMAGE Routine 06/08/2023 1:30 PM EDT from Last 3 Months or Most Recently Relevant to Health Maintenance Insurance DENTAL - [facility]
--- OUTSIDE RECORDS SUMMARY | 2025-07-23 19:51 | XMS_ITS | Encounter Summary ---
Author Organization [facility] Address [address] [facility] [address] [place] [address] Phone Care Team Providers Care Refrigerator Room Clerk Name Role Phone Debra Muniz MD Unavailable Mohinder Fan MD Unavailable [phone] Van Dupont MD Unavailable Markos James MD Primary Care Provider Arsh Mata MD Unavailable [phone] Eufemia Caro RN Unavailable MELISSA [email or web address] Encounter Details Date Type Department Care Team (Late st Contact Info) Description 12/14/2023 Procedure Pass [facility] - MRI [address] [facility], 6th [place] [address] Social History Tobacco Use Types Packs/Day Years [...] [facility] MRI [address] [place] [address], [address] [place] [address] 09/09/2025 10:30 AM EST Blood Draw [facility] Malignancies [address] [facility], 9th Floor, [address] [place] [address] Van Dupont MD [address] [address] [email or web address] 09/09/2025 10:50 AM EST Appointment [facility] - MRI [address] [facility], 6th [place] [address] Van Dupont MD [address] [address] [email or web address] 09/09/2025 11:30 AM EST Office Visit [facility] for [facility]ology Malignancies [address] [facility], 9th Floor, [address] [place] [address] Van Dupont MD [address] [place] [address] [email or web address] documented as of this encounter Goals Goal Patient Goal Type Associated Problems Recent Progress Patient-Stated? Author Acute Care Plan Acute Care Plan No Carloina Jackson RN Note: Cellular therapy/ Immune Effector Cell patient. Patient received cellular therapy product Amol-reese on 11/01/23 Page the on-call Immune Effector Cell Attending via [email or web address] [facility] Page immediately if patient presents [...] team evaluation. Patients should be admitted to [place] [address] to the Immune Effector Cell Service. documented as of this encounter Visit Diagnoses Not on filedocumented in this encounter Care Teams Refrigerator Room Clerk Relationship Specialty Start Date End Date aMrkos James MD [address] [facility] [address] [place] [id number] PCP - General Internal Medicine 12/07/20 Debra Muniz MD [address] [place] [address] Medical Oncology 05/27/18 Mohinder Fan MD 103 [place] [address] Consulting Provider Geriatric Psychiatry 05/27/18 Van Dupont MD [address] [place] [address] [email or web address] Primary Oncologist Medical Oncology 10/14/18 Arsh Mata MD 55 [facility] [address] [place] [address] [email or web address] Treatment Team Hematology and Oncology 10/16/23 Eufemia Caro, NIKOLAS 55 [place] [address] [email or web address] Associate Infusion Nurse 10/16/23 documented as of this encounter Additional Source Comments The information contained in this document represents components of the legal health record. It is not the complete legal health record.[facility]
== END 2025-07-23 15:46 | disposition home or self-care (01) ==
LOC: HO.RHES 14:29
PROVIDERS: PCP Internal Medicine; Visit Provider Student in an Organized Health Care Education/Training Program
DX: M15.9 Polyosteoarthritis, unspecified (principal)
CPT/HCPCS: 99213; G2211

== ENCOUNTER → 2025-07-23 14:28 | Outpatient (BNVA) | payer MEDICARE, SELFPAY | PROVIDERS: PCP Internal Medicine; Visit Provider Student in an Organized Health Care Education/Training Program | DX: M15.9 Polyosteoarthritis, unspecified (principal); R52 Pain, unspecified; C90.01 Multiple myeloma in remission; Z92.21 Personal history of antineoplastic chemotherapy | CPT/HCPCS: 99212 ==